=== PATIENT | female | born 1965 | race Caucasian/White ===

== ENCOUNTER 2019-09-25 13:41 | Emergency (ER) | payer MEDICARE, SELFPAY ==
[2019-09-25 13:47] VITALS: BP 118/84; PULSE 95; RESP 18; TEMP 36.7; O2SAT 97; BMI 28.0
--- NOTE | 2019-09-25 14:02 | XR_ITS ---
WS: [id number] Left ankle, 2 views, 09/25/2019 Clinical Data: fall, L knee ankle pain Comparison: None. Findings: No fractures or dislocations are seen. The ankle mortise is normal. The talus and calcaneus are unrem arkable. No soft tissue swelling over the medial or lateral malleolus is seen. There is a small plantar spur. XR/XR ankle LT 2V [id number] Impression: Negative left ankle.
--- NOTE | 2019-09-25 14:02 | XR_ITS ---
WS: [id number] Left knee, 3 views, 09/25/2019 Clinical Data: fall, left extremity pain Comparison: Left thigh and femur x-ray, 09/06/2007. Findings: There is a minimal fracture of the head of the left fibula.. The joint spaces are normal. The patella is intact. The soft tissues are unremarkable. There is a small anterior superior spur of the patella. There is a fibroxanthoma of the posterior dis julia femur unchanged. XR/XR knee LT 3V* [id number] Impression: 1. Small fracture of head of left fibula. 2. 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
--- NOTE | 2019-09-25 17:00 | ED_ITS ---
Entered by Loren Fang, acting as scribe for Sep 25, 2019 13:41 HPI - Extremity Problem General: Chief complaint: Extremity Injury, Lower Stated complaint: leg pain Time Seen by Provider: 09/25/19 17:01 Source: patient Mode of arrival: ambulatory Limitations: no limitations History of Present Illness: HPI Narrative: 53 yo Female presents to ED with complaint of left leg pain post fall. Pt states that she fell 3 times on [place]. Pt states that her legs just gave out and she fell. Pt states that she came in today because her pain isn't getting any better. Pt states she has some pain in her ankle and foot as well. MD Complaint: extremity pain Onset (ago): week(s) (1) Pain Consistency: constant Location: left and lower extremity Severity scale (1-10): 4 Quality: aching Relieving factors: nothing Associated symptoms: Reports no associated symptoms Review of Systems General: Reports: 10 or more systems reviewed and unremarkable except in HPI and below Musc: Reports: extremity pain and joint pain PFSH ED PFSH: Statuses (acute, chronic, etc) shown below reflect problem list status as previously entered and may not be historically accurate Social History Smoking and tobacco status: never smoked Physical Exam Const: COMMON NORMALS: no apparent distress, average body habitus, oriented x3, no limitations, healthy appearing, alert and well nourished HENMT: COMMON NORMALS: normocephalic HEAD & SCALP: normocephalic Eye: COMMON NORMALS: PERRL, EOMs intact bilaterally and conjunctivae normal CONJUNCTIVA: Yes conjunctivae normal PUPIL: Yes PERRL Neck/C-Spine: COMMON NORMALS: full ROM, no lymphadenopathy, supple and thyroid normal THYROID: thyroid normal Resp: COMMON NORMALS: normal respiratory effort, no retractions, no use of accessory muscles, clear to auscultation bilaterally and percussion normal AUSCULTATION: clear to auscultation bilaterally PERCUSSION: percussion normal Cardio: COMMON NORMALS: regular rate, regular rhythm, S1 normal heart sound, S2 normal heart sound, no gallops, no clicks, no murmurs, no rub and peripheral pulses 2+ throughout RATE: regular rate RHYTHM: regular rhythm HEART SOUNDS: S1 normal and S2 normal PERIPHERAL PULSES: pulses 2+ throughout GI: COMMON NORMALS: normal to inspection, nondistended, normoactive bowel sounds and soft to palpation PALPATION: Yes soft Extremity: COMMON NORMALS: normal to inspection and full ROM; negative for no joint enlargement (Tenderness over fibular head on left) Neuro: COMMON NORMALS: oriented x3 SENSORIUM/ORIENTATION: Yes alert Skin: COMMON NORMALS: no rashes or lesions noted, no wounds, skin turgor normal, no jaundice, no petechiae and no mottling GENERAL SKIN EXAM: no rashes or lesions noted and turgor normal Course Vital Signs: Vital signs: Vital Signs Temperature 98.0 F 09/25/19 13:47 Pulse Rate 95 09/25/19 13:47 Respiratory Rate 18 09/25/19 13:47 Blood Pressure 118/84 09/25/19 13:47 Pulse Oximetry 97 09/25/19 13:47 MDM - Extremity (Nontraumatic) MDM Narrative: Medical decision making narrative: Discussed differential diagnosis recommended plain films of tibia and fibula as well as ankle. The patient's x-rays came back with slightly displaced proximal fibular head fracture on the left. We discussed contemporary management and I recommended some immobilization and orthopedic follow-up. All questions were answered prior to discharge. Discharge Plan Discharge Patient Disposition: Home, Self-Care Clinical Impression: Closed fracture fibula, head Condition: Stable Prescriptions: No Action Pending RF: 0 Referrals: Yaya Myles MD [Family Provider] - Discharge Diet: Advance as tolerated Discharge Activity: Use walker/crutches as instructed Coding Level of Care Code ED Negative Turner Apprentice for Chg Fwd Exam Problem Focused The documentation recorded by the Leoncio schreiber Carmen, accurately reflects the service I personally performed and the decisions made by Ranjan green Charlie, DO Sep 25, 2019 13:41
--- NOTE | 2019-09-25 18:18 | PC.NURSE ---
physical therapy in room to fit pt for boot
[2019-09-25 18:23] VITALS: BP 113/80; PULSE 77; O2SAT 97
--- NOTE | 2019-09-25 18:36 | PC.PT ---
PT note; received evaluate and treat order for patient, and to fit walking boot, to left lower extremity, further instructed patient in partial weightbearing ambulation and transfers patient returned demonstration of same; instructed in use and care of walking boot, and patient had no further questions; but was unable to bill or note this otherwise, and [facility] system at this time
--- NOTE | 2019-09-26 10:02 | DCPLANNER ---
manager telemetry had message that patient is to follow up with ortho. manager telemetry called the ortho clinic, spoke with Pat, gave clinic patients information. manager telemetry was told that patients information would be printed and reviewed. Clinic will call nurse outreach case manager and patient with appointment information.
--- NOTE | 2019-09-30 10:46 | DCPLANNER ---
Waleska from ortho called geriatric case manager with appointment information. A follow up appointment has been scheduled for Sunday, October 06, 2019 at 1:[address] Jovel. Patient is aware of appointment.
--- NOTE | 2019-10-15 15:28 | DCPLANNER ---
Patient did not attend appointment scheduled with ortho.
== END 2019-09-25 18:23 | disposition home or self-care (01) ==
PROVIDERS: Emergency Provider Family Medicine; Family Provider Family Medicine
DX: S82.492A Other fracture of shaft of left fibula, initial encounter for closed fracture (principal); W19.XXXA Unspecified fall, initial encounter
CPT/HCPCS: 73562; 73600; 99281; E0114

== ENCOUNTER 2019-10-17 16:01 | Inpatient (IN) | payer MEDICARE, SELFPAY ==
[2019-10-17 16:04] VITALS: BP 150/94; PULSE 88; RESP 16; O2SAT 98; BMI 28.8
--- NOTE | 2019-10-17 16:07 | ED_ITS ---
Entered by Solange Akins, acting as scribe for Alex Pelaez MD HPI - Psych General: Chief Complaint: Psychiatric Symptoms Stated Complaint: SI Time Seen by Provider: 10/17/19 16:05 History of Present Illness: HPI Narrative: 53 yo female presents to ED with suicidal ideation. When asked what was going on, the patient stated life is going on . The patient said the police wants her to be here. When asked who called the police, she said she called the police because her step daughter did not want the patient to get her own stuff. The patient has a cut on her R wrist but states the cut was accidental due to broken glass. She said she told the police that if her cats were gone when she went back that she would just kill herself because they were the only things left that kept her going since her daughter disowned her and she never gets to see her grandchildren. complaint: suicidal ideation Onset (ago): hour(s) (1) Duration: constant History of same: No Exacerbating factors: other (family) Associated symptoms: Reports depression Review of Systems Const: Denies: fever or chills Eyes: Denies: change in vision ENMT: Denies: throat pain or mouth pain Card: Denies: chest pain Resp: Denies: shortness of breath GI: Denies: abdominal pain, nausea, vomiting or diarrhea : Denies: difficulty urinating Musc: Denies: back pain or joint pain Skin/Breast: Denies: rash Neuro: Reports: behavioral changes; Denies: headache Psych: Reports: depression Endo: Denies: excessive urination Neil/Lymph: Denies: easy bruising All/Imm: Denies: hives PFSH ED PFSH: Statuses (acute, chronic, etc) shown below reflect problem list status as previously entered and may not be historically accurate Social History (Updated 10/09/19 @ 11:11 by Bita Germain RN) Smoking and tobacco status: never smoked Second hand smoke exposure: Yes (lives with son in law) Alcohol intake: never Adopted: Yes (Grandparents adopted her.) Caregiver/support person: No Lives independently: No (Lives with step-daughter and son in law.) Household members: children Housing: Manufactured/Mobile home Marital status: / Number of children: 2 Number of grandchildren: 4 service: No Current occupational status: disabled Leisure activites: reading and other Leisure activities details: puzzles Sexually active: No Current gender identity: Female Financial difficulty paying for basics: Somewhat Hard Female Reproductive History: Para: 2 Spontaneous abortions: No Physical Exam Const: COMMON NORMALS: no apparent distress, oriented x3 and healthy appearing HENMT: COMMON NORMALS: normocephalic and external nose normal HEAD & SCALP: normocephalic NOSE: external nose normal Eye: COMMON NORMALS: PERRL PUPIL: Yes PERRL Neck/C-Spine: COMMON NORMALS: full ROM and no lymphadenopathy Chest: COMMONS NORMALS: inspection of chest normal Resp: COMMON NORMALS: normal respiratory effort, no use of accessory muscles and clear to auscultation bilaterally AUSCULTATION: clear to auscultation bilaterally Cardio: COMMON NORMALS: regular rate and regular rhythm RATE: regular rate RHYTHM: regular rhythm GI: COMMON NORMALS: normal to inspection, nondistended, normoactive bowel sounds, soft to palpation, non-tender and no masses PALPATION: Yes soft Back/Pelvis: THORACIC SPINE/UPPER BACK: Yes normal to inspection Extremity: COMMON NORMALS: normal to inspection, full ROM and normal capillary refill Neuro: COMMON NORMALS: oriented x3 Psych: COMMON NORMALS: mental status grossly normal and cooperative MOOD & AFFECT: Yes depressed mood Skin: COMMON NORMALS: no rashes or lesions noted GENERAL SKIN EXAM: no rashes or lesions noted MDM - Psych MDM Narrative: Medical decision making narrative: Patient presents here with suicidal ideations. Patient medically cleared I spoke to psychiatrist and will admit to the psychiatric unit. Lab Data: Labs: Lab Results 10/17/19 10/17/19 10/17/19 Range/Units 16:20 16:35 16:35 WBC 5.5 (4.0-10.0) 10^3/ uL RBC 4.29 (4.1-5.3) 10^6/u L Hgb 10.6 L (11.5-15.3) g/dL Hct 34.9 L (37.0-47.0) % MCV 81.4 (81-99) fL MCH 24.7 L (28.0-34.0) pg MCHC 30.4 (30.0-36.0) g/dL RDW 15.6 H (12.1-15.1) % Plt Count 276 (130-400) 10^3/c mm MPV 9.4 (7.4-10.4) fL Neut % (Auto) 51.9 % Lymph % (Auto) 41.1 % Hardeman % (Auto) 5.6 % Eos % (Auto) 0.7 % Baso % (Auto) 0.5 % Neut # (Auto) 2.9 (1.8-7.7) 10^3/u L Lymph # (Auto) 2.3 (0.8-4.8) 10^3/u L Hardeman # (Auto) 0.3 (0.2-0.9) 10^3/u L Eos # (Auto) 0.0 (0.0-0.8) 10^3/u L Baso # (Auto) 0.0 (0.0-0.1) 10^3/u L Nucleated RBC % (a uto) 0 % Nucleated RBCs # 0.0 /100WBC Sodium 142 (136-145) mmol/L Potassium 4.0 (3.5-5.1) mmol/L Chloride 102 (98-107) mmol/L Carbon Dioxide 29 (22-29) mmol/L Anion Gap 15.0 (5-19) BUN 8 (6-20) mg/dL Creatinine 0.7 (0.5-0.9) mg/dL GFR Calculation 86.9 L (90-130) mL/min Glucose 128 H (74-109) mg/dL Calcium 9.7 (8.5-10.5) mg/dL Total Bilirubin 0.2 (0.15-1.2) mg/dL AST 20 (0-32) U/L ALT 12 (0-33) U/L Alkaline Phosphata se 140 H (35-105) IU/L Total Protein 7.9 (6.6-8.7) g/dL Albumin 4.0 (3.5-5.2) g/dL Globulin 3.9 (1.3-4.6) g/dL Salicylates < 0.3 L (3-10) mg/dL Urine Opiates Scre en Negative (Negative) ng/mL Acetaminophen < 5.0 L (10-30) ug/mL Ur Barbiturates Sc reen Negative (Negative) ng/mL Ur Phencyclidine S crn Negative (Negative) ng/mL Ur Amphetamines Sc reen Negative (Negative) ng/mL U Benzodiazepines Scrn Negative (Negative) ng/mL Urine Cocaine Scre en Negative (Negative) ng/mL U Marijuana (THC) Screen Negative (Negative) ng/mL Ethyl Alcohol < 10 (0-10) mg/dL Discharge Plan Discharge Patient Disposition: Admitted As Inpatient Admit Provider: Brady Ly Clinical Impression: Suicidal ideation Condition: Stable Referrals: Slim Campoverde MD [Primary Care Provider] - Yaya Myles MD [Family Provider] - Coding Level of Care Code ED Roll Tube Setter for Chg Fwd The documentation recorded by the Tashi schreiber Valerie R, accurately reflects the service I personally performed and the decisions made by me, Alex Pelaez MD Oct 17, 2019 16:01
[2019-10-17 16:50] LABS: Basophils % 0.5 %; Eosinophils % 0.7 %; Hematocrit 34.9 % (37.0-47.0); Hemoglobin 10.6 g/dL (11.5-15.3); Lymphocytes # 2.3 10^3/uL (0.8-4.8); Lymphocytes % 41.1 %; Mean Corpuscular HGB Conc 30.4 g/dL (30.0-36.0); Mean Corpuscular Hemoglobin 24.7 pg (28.0-34.0); Mean Corpuscular Volume 81.4 fL (81-99); Mean Platelet Volume 9.4 fL (7.4-10.4); Monocytes # 0.3 10^3/uL (0.2-0.9); Monocytes % 5.6 %; Neutrophils # 2.9 10^3/uL (1.8-7.7); Neutrophils % 51.9 %; Nucleated Red Blood Cells % 0 %; Platelet Count 276 10^3/cmm (130-400); Red Blood Count 4.29 10^6/uL (4.1-5.3); Red Cell Distribution Width 15.6 % (12.1-15.1); White Blood Count 5.5 10^3/uL (4.0-10.0)
[2019-10-17 16:55] LABS: Alanine Aminotransferase 12 U/L (0-33); Alkaline Phosphatase 140 IU/L (35-105); Aspartate Amino Transferase 20 U/L (0-32); Blood Urea Nitrogen 8 mg/dL (6-20); Calcium 9.7 mg/dL (8.5-10.5); Carbon Dioxide 29 mmol/L (22-29); Chloride 102 mmol/L (98-107); Globulin 3.9 g/dL (1.3-4.6); Glomerular Filtration Rate 86.9 mL/min (90-130); Glucose 128 mg/dL (74-109); Sodium 142 mmol/L (136-145); Total Bilirubin 0.2 mg/dL (0.15-1.2); Total Protein 7.9 g/dL (6.6-8.7)
[2019-10-17 16:59] LABS: Acetaminophen < 5.0 ug/mL (10-30); Alcohol Level < 10 mg/dL (0-10); Salicylate < 0.3 mg/dL (3-10)
[2019-10-17 17:20] LABS: Amphetamines Screen Urine Negative (Negative); Barbiturates Screen Urine Negative (Negative); Benzodiazepines Screen Urine Negative (Negative); Cocaine Screen Urine Negative (Negative); Opiate Screen Urine Negative (Negative); PCP Screen Urine Negative (Negative); THC Screen Urine Negative (Negative)
[2019-10-17 17:55] VITALS: BP 145/80; PULSE 80; RESP 16; O2SAT 96
[2019-10-17 18:25] VITALS: BP 133/88; PULSE 73; RESP 18; TEMP 36.8; O2SAT 99
[2019-10-17 20:55] VITALS: BP 131/67; PULSE 59; RESP 20; TEMP 36.8; O2SAT 92
[2019-10-18] MEDS: acetaminophen 325 mg Tablet 650 MG PO (02:08)
--- NOTE | 2019-10-18 03:43 | PC.NURSE ---
Pt Behavior At approximately 2140 on 10/17/19 pt came to nurses station for night medications. She was informed that there was a process the physician would have to take tomorrow before she could get her Methadone. She began raising her voice and stated he needed to come in right away and fix it. She punched the glass and was yelling she had to have her methadone. She began to talk about stressors in her life and started to cry. Patient was reassured the physician would work with her on her treatment plan and visit with her tomorrow about her current medications. She became calm and returned to her room.
[2019-10-18 06:00] VITALS: BP 127/93; PULSE 76; RESP 20; TEMP 36.4; O2SAT 97
--- NOTE | 2019-10-18 08:53 | PM.NHP ---
Providers/Chief Complaint Admitting Physician: Brady Ly MD Primary Care Provider: Slim Campoverde MD Chief Complaint: SI HPI NPU History of Present Illness Maria Victoria New is a 53 year old female Chief complaint: I had a really bad year. History of present illness: Maria Victoria New is a 53 year old female He was admitted for the fourth time in the past 12 months. When asked why she is here, she details a great deal of trauma in her life. Her daughter moved into her home and was feeling drugs out of her home. She was threatened with being homeless. She has had difficulty with one of her 4 ex-husbands and the neighbors reported to the police. She never did explain why she had to be hospitalized psychiatrically. She claims that the [facility] was supposed to assist her on an outpatient basis. She said that the case monitor did not show up at scheduled appointment. As demonstrated flow, records indicate otherwise. She said she became suicidal and cut her wrist. She shows a healing laceration across her right volar surface of her wrist. No stitches were required. There is no indication of infection. There is an affidavit in her chart filed by a police commanding officer who describes a situation in which the patient was arguing with her daughter, was visibly distraught, had a cut on her wrist, and made a statement that indicated that the only reason she is alive is because of her cats. She stated if they are gone when she gets back, she would blow her head off and we would have to take her in her hearse. Patient stated that his physician that she was to meet with the [facility] counselors earlier this week but never was able to make the appointment. However records in her chart detail the following from just yesterday: Psychiatric Diagnosis 1. Diagnosis: Diagnosis: Major depressive disorder, recurrent severe without psychotic features Current Client Status Time In: 10:50 Time Out: 15:26 Service Encounter 2: Start Time: :55 Stop Time: 12:39 Description: Visited client to build repport and discuss [facility] services. Service Encounter 3: Start Time: 12:39 Stop Time: 12:45 Description: Brung client to [facility] Assessment Appointment Service Encounter 4: Start Time: 12:45 Stop Time: 14:05 Description: Assissted Client with [facility] Assessment ( Non Billiable ) Service Encounter 5: Start Time: 14:10 Stop Time: 15:10 Description: Assissted client with [facility] Assessment Service Encounter 6: Start Time: 15:10 Stop Time: 15:26 Description: CSS took client bcak home. Interventions Treatment Plan Intervention / Education Current Goal: ASSESSMENT Current Objective: ASSESSMENT Description of Intervention: CSS tarveled to clients home to have face to face session with client. CSS asked client about medication manegment and if she takes then as prescribed. Client stated, Yes, I take them when I am prescribed them. CSS asked client about her anxiety and depression. Client stated, I have days of depression and anxiety today is about a 5. CSS asked client about her coping skills critical intervention strategies. Client stated, I have bad days. CSS asked client about her keeping her apppointments. Client stated, I have bad cell phone vehicle technician so it is hard to get ahold of me. But I write the appointments down when I can make them. CSS asked client what she would like CSS and client discussed her new [facility] treatment plan goals and objectives to work on together. CSS and client set up a time to meet weekly as agreed upon. CSS assisted client with filling out the proper paper work for [facility] services. CSS then assisted client with assessments and paperwork for [facility] and [facility] at [facility]. CSS then drove client back home. Less than an hour later, at 16:05, thsi was entered by the ER physician: IKMBERLEY Narrative: 53 yo female presents to ED with suicidal ideation. When asked what was going on, the patient stated life is going on . The patient said the police wants her to be here. When asked who called the police, she said she called the police because her step daughter did not want the patient to get her own stuff. The patient has a cut on her R wrist but states the cut was accidental due to broken glass. She said she told the police that if her cats were gone when she went back that she would just kill herself because they were the only things left that kept her going since her daughter disowned her and she never gets to see her grandchildren. Mental health history:She was hospitalized 4 times in 2019: October 01 for 3 days, February 14 6 days, March 18 for 4 days, and April 21 for 8 days. It is noteworthy that in each of those hospitalizations, there is disagreement over medications that she felt she should be receiving. Her last discharge summary read as follows: The patient was admitted voluntary. She was placed on close observations for suicidal thoughts. Maria Victoria did voice suicidal thoughts during the hospitalization. However prior to discharge Maria Victoria was using suicidal thoughts as a way to stay in the hospital. She did not have any outbursts on the unit. The patient did not require seclusion and restraints. Family psychiatric history is positive for addiction and her daughter. No other diagnoses listed. Social history: She grew up in [facility]. She was at 14 years of age. Her first marriage Produced 2 girls. She was at 20. One of his daughters is the one that is causing her difficulty and allegedly selling drugs out of her apartment. 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 She is now disabled due to her problems with peripheral neuropathy. She enjoys spending time with her pets and watching Star Trek. She has no hobbies or old directed self esteem supporting activities. There is nothing that she is forward to. She does not seem too concerned about either. Legal history:She has 2 arrests over 10 years ago for possession of marijuana. Past medical history:Please see nursing notes in the emergency room admission packet. She has been diagnosed with peripheral neuropathy which produces her disability payments. She also has had a hip replacement and recently had a broken tibia. Mental Status Exam: The patient presents ambulating with a blanket over her shoulders. She sits in a forward posture and is interpersonally engaged in this interview. She is not a reliable informant as evidenced by contradiction of her report that she had no contact with the [facility] this week. She is in no apparent emotional or physical distress. Appearance: hygiene is fair; no gross neurological deficits., gait is unremarkable; AIMS=0 Speech: Speech is of normal rate and rhythm and easily understood. Thought processes: Thought processes are abstract. Judgment is adequate for safety. Associations: intact Psychotic processes: There is no indication of guarding or paranoia. There is no attention to the internal stimuli. Auditory and visual hallucinations are denied. Judgment: Insight is fair. Problem solving skills are adequate for safety. Orientation: The patient is oriented to person, place time and situation. Memory: no deficits noted in immediate, intermediate, or remote spheres. Attention: The patient is alert and interpersonally engaged. Language: Verbalizations are coherent. Fund of knowledge: Fund of knowledge is adequate. Affect/Mood: Affect is consistent with a Euthymic mood. She denied suicidal ideation Affective range appropriate. Psychosis: perception unimpaired except through cognitive distortion; reality testing intact. Diagnoses: Major depression?recurrent, in remission Adjustment disorder with disturbance of mood and conduct Rule out malingering Assessment: Is really not clear why this person needs to be in the hospital. She used the word suicide To a police commanding officer and in the emergency room. She is in no apparent distress at this time. It is noteworthy that she has prescriptions that are forward dated for Percocet and methadone indicating that it is likely that there are other prescriptions that have recently been filled for both. It is a coincidence that she says she has a daughter living with her selling drugs out of her house. It is noteworthy that the patient is negative for opiates on her drug screen. Methadone would not show up on the drug screen but the Percocet would. Treatment plan: Due to the psychiatric conditions and treatment listed in the Assessment and Plan - the patient requires continued hospitalization. Will provide a safe and therapeutic environment for patient.. Will continue inpatient treatment to allow for medication adjustment and monitoring. Will continue q15 min safety checks. Will continue current medications and monitor for medication side effects. Monitor patient's mood, sleep, appetite, and behavior closely. Encourage patient to participate in individual and group therapeutic sessions on the guzmán. Estimated length of stay 5 days The expected benefits and potential side effects of patient's psychiatric medications were discussed with the patient. The patient understands and consents to treatment.CRITERIA FOR DISCHARGE: stable on medications and no longer an im Meds NPU Home Medications Medication Instructions Recorded Confirmed Type clonazepam 1 mg tablet 1 mg PO BID PRN 10/08/19 10/17/19 History levothyroxine 50 mcg capsule 50 mcg PO DAILY 10/08/19 10/17/19 History methadone 10 mg tablet 10 mg PO Q6H PRN 10/08/19 10/17/19 History oxybutynin chloride 5 mg tablet 5 mg PO BID 10/08/19 10/17/19 History oxycodone-acetaminophen 7.5 mg-325 1 tab PO Q6H PRN 10/08/19 10/17/19 History mg tablet amitriptyline 200 mg PO DAILY 10/17/19 10/17/19 History naloxone [Narcan] 4 mg INTRANASAL Q3M PRN 10/17/19 10/17/19 History omeprazole 20 mg PO BID 10/17/19 10/17/19 History Allergies Allergy/AdvReac Type Severity Reaction Status Date / Time amoxicillin Allergy rash Verified 10/09/19 11:18 egg Allergy Vomiting Verified 10/09/19 11:20 morphine Allergy rash Verified 10/09/19 11:20 nalbuphine [From Nubain] Allergy ADR-Agitate Verified 09/25/19 13:58 d Penicillins Allergy ALGY-Rash Verified 09/25/19 13:58 promethazine Allergy rash Verified 10/09/19 11:20 PFSH NPU PFSH: Statuses (acute, chronic, etc) shown below reflect problem list status as previously entered and may not be historically accurate Social History (Updated 10/09/19 @ 11:11 by Bita Germain RN) Smoking and tobacco status: never smoked Second hand smoke exposure: Yes (lives with son in law) Alcohol intake: never Adopted: Yes (Grandparents adopted her.) Caregiver/support person: No Lives independently: No (Lives with step-daughter and son in law.) Household members: children Housing: Manufactured/Mobile home Marital status: / Number of children: 2 Number of grandchildren: 4 service: No Current occupational status: disabled Leisure activites: reading and other Leisure activities details: puzzles Sexually active: No Current gender identity: Female Financial difficulty paying for basics: Somewhat Hard Female Reporductive History: Para: 2 Spontaneous abortions: No Vitals/I&O/Wt Last Vital Signs Temp 97.5 F L 10/18/19 06:00 Pulse 76 10/18/19 06:00 Resp 20 H 10/18/19 06:00 BP 127/93 10/18/19 06:00 Pulse Ox 97 10/18/19 06:00 Weight last 48 hrs Weight 88.451 kg Data NPU : 10/17/19 16:35 10/17/19 16:35 Involuntary Hold Information 96 Hour Hold: 96 Hour Involuntary Admission: No Attestations NPU Medical Necessity Statement*: Patient will remain in the hospital another 5 nights for the completion of her court-ordered involuntary incarceration. Coding Level of Care Code Acute Vice President Industrial Relations for Barbra Keith
[2019-10-18] MEDS: methadone 10 mg Tablet PO ×3 (10:00→20:45)
[2019-10-18] MEDS: diphenhydrAMINE 25 mg Capsule PO (10:39)
[2019-10-18 14:00] VITALS: O2SAT 79
[2019-10-18] MEDS: hydrocortisone 1% cream 28 gm 1 APPLIC TOPICAL (18:26)
[2019-10-18 21:40] VITALS: BP 124/87; PULSE 93; RESP 18; TEMP 36.7; O2SAT 94
[2019-10-19 06:00] VITALS: BP 116/72; PULSE 61; RESP 16; TEMP 36.7; O2SAT 97
[2019-10-19] MEDS: methadone 10 mg Tablet PO ×3 (08:48→21:12)
--- NOTE | 2019-10-19 16:54 | PM.NPN ---
Subjective NPU Subjective: Interval history: Maria Victoria New is a 53 year old female admitted for the fourth time in 12 months. She details a great deal of trauma in her life. Her daughter moved in with her and was dealing drugs out of her home. She was threatened with being homeless. She has had difficulty with one of her 4 ex-husbands and the neighbors reported to the police. She never did explain why she had to be hospitalized psychiatrically. She claims that the [facility] was supposed to assist her on an outpatient basis. She said that the keycase assembler did not show up at scheduled appointment. The clinical records indicate that several appointments were made the patient availed herself of none of them. She said she became suicidal and cut her wrist. She shows a healing laceration across her right volar surface of her wrist. No stitches were required. There is no indication of infection. Mental Status Exam MSE Comments: Today the patient is on a much more even keel. She is not dramatic or hyperbolic in her presentation. She recounts multiple family issues which, she believes, may render her homeless. The patient presents at her stated age. She is in good body habitus, well-groomed and clean. Mood is anxious and affect is tense, commensurate with her mood. Thought processes are integrated and free of any racing, blocking or looseness of association. Speech is of normal rate and volume, without dysarthria, aprosody or pressure. Cognitive functions are intact. She seems quite intelligent and there does not appear to be any short-term memory deficit she has reasonable judgment and insight. She denies suicidal or homicidal ideation, plan or intent. Vitals/I&O/Wt Last Vital Signs Temp 98.1 F 10/19/19 06:00 Pulse 61 10/19/19 06:00 Resp 16 10/19/19 06:00 BP 116/72 10/19/19 06:00 Pulse Ox 97 10/19/19 06:00 Weight last 48 hrs Weight 187 lb Physical Exam Narrative: EXAM NARRATIVE: The patient appeared about 60 pounds overweight but normally developed. Vital signs as documented. Head exam is unremarkable. No scleral icterus or corneal arcus noted. Neck is without jugular venous distension, thyromegaly, or carotid bruits. Lungs are clear to auscultation and percussion. Heart normal sinus rhythm, no murmurs. Abdomen bland. Extremities no limitation of motion, no lower extremity edema. Neurological cranial nerves II to XII intact. No cerebellar, sensory or motor deficit noted. Mental status as above. Data NPU : 10/17/19 16:35 10/17/19 16:35 A&P Assessment and plan (1) Adjustment disorder with depressed mood: Status: Acute Code(s): F43.21 - Adjustment disorder with depressed mood (2) Suicidal ideation: The patient felt overwhelmed. She is not now. And her suicidal ideation is waning Status: Acute Code(s): R45.851 - Suicidal ideations Involuntary Hold Information 96 Hour Hold: 96 Hour Involuntary Admission: No Attestations NPU Medical Necessity Statement*: This patient was suicidal and remains depressed. This was an appropriate admission. I anticipate 4-5 midnights additional stay. Time Spent in Patient Care: Greater than 35 minutes (>than 50% of time spent in counselling and/or direct pt care on unit). 60 minutes. Coding Level of Care Code Acute Silvering Department Supervisor for Barbra Keith Diagnoses Adjustment disorder with depressed mood F43.21 Suicidal ideation R45.851
[2019-10-19 20:39] VITALS: BP 123/82; PULSE 76; RESP 17; TEMP 36.8; O2SAT 97
[2019-10-19] MEDS: trazodone 50 mg Tablet PO (21:14)
[2019-10-20 06:58] VITALS: BP 115/73; PULSE 73; RESP 16; TEMP 36.8; O2SAT 97
[2019-10-20 09:06] VITALS: RESP 19
[2019-10-20] MEDS: acetaminophen 325 mg Tablet 650 MG PO (09:06)
[2019-10-20] MEDS: methadone 10 mg Tablet PO ×3 (09:06→20:57)
[2019-10-20 13:27] VITALS: BP 117/81; PULSE 75; RESP 18; TEMP 36.6; O2SAT 97
[2019-10-20 14:47] VITALS: RESP 18
--- NOTE | 2019-10-20 15:07 | P.PN_ITS ---
Subjective NPU Subjective: Interval history: The patient is a lot calmer today and her mood is brighter. She does have foul-smelling urine and believes she has a urinary tract infection. She also has pain and burning upon urination. She says she has been on Bactrim DS before, to good effect Medications: Reviewed: Yes Mental Status Exam MSE Comments: The patient is alert and oriented to person, place, time, and situation. Hygiene is good. Sensorium is clear. The patient maintains appropriate eye contact, is cooperative and relates well to me. Behavior shows no psychomotor agitation. Mood is calm and euthymic. Affect is tense, appropriate to his current mood. Thought processes are organized and free of racing, blocking or looseness of association. Speech is of normal rate and volume, without dysarthria, aprosody or pressure. There is no inordinate latency of response. The patient denies auditory or visual hallucinations or delusions. Thought processes are integrated and free of any racing, blocking or looseness of association. The patient denies suicidal or homicidal ideation, plan or intent. Memory is intact for recent and remote events. The patient is cooperative and relates well to me. Fund of knowledge is adequate given vocabulary. Insight and judgment were deemed to be good given the recognition of problems and desire for treatment. Vitals/I&O/Wt Last Vital Signs Temp 97.9 F 10/20/19 13:27 Pulse 75 10/20/19 13:27 Resp 18 10/20/19 14:47 BP 117/81 10/20/19 13:27 Pulse Ox 97 10/20/19 13:27 Weight last 48 hrs Weight 187 lb Physical Exam Narrative: EXAM NARRATIVE: The patient appeared to be overweight but normally developed. Vital signs as documented. Head exam is unremarkable. No scleral icterus or corneal arcus noted. Neck is without jugular venous distension, thyromegaly, or carotid bruits. Lungs are clear to auscultation and percussion. Heart normal sinus rhythm, no murmurs. Abdomen bland. Extremities no limitation of motion, no lower extremity edema. Neurological cranial nerves II to XII intact. No cerebellar, sensory or motor deficit noted. Mental status as above. Data NPU : 10/17/19 16:35 10/17/19 16:35 A&P Assessment and plan (1) Adjustment disorder with depressed mood: Status: Acute Code(s): F43.21 - Adjustment disorder with depressed mood (2) Suicidal ideation: Status: Acute Code(s): R45.851 - Suicidal ideations Involuntary Hold Information 96 Hour Hold: 96 Hour Involuntary Admission: No Attestations NPU Medical Necessity Statement*: The patient is responding rapidly to milieu and pharmacotherapy. I anticipate 2-3 midnights additional hospitalization. Coding Level of Care Code Acute String Studies Director for Raj Sagar Diagnoses Adjustment disorder with depressed mood F43.21 Suicidal ideation R45.851
[2019-10-20] MEDS: sulfamethoxazole-trimeth DS 160-800 mg Tablet 1 TAB PO (17:03)
[2019-10-20 19:42] VITALS: BP 130/82; PULSE 80; RESP 18; TEMP 37; O2SAT 99
[2019-10-20] MEDS: trazodone 50 mg Tablet PO (22:45)
[2019-10-21 06:00] VITALS: BP 118/76; PULSE 75; RESP 16; TEMP 36.7; O2SAT 97
[2019-10-21] MEDS: methadone 10 mg Tablet PO ×3 (08:19→21:00)
[2019-10-21] MEDS: sulfamethoxazole-trimeth DS 160-800 mg Tablet 1 TAB PO ×2 (08:19→17:32)
--- NOTE | 2019-10-21 08:52 | P.PN_ITS ---
Subjective NPU Subjective: Interval history: The patient complains of significant anxiety. The loss of her home has disrupted her life significantly and she does not know where to return. Were never able to find a place for her. Medications: Reviewed: Yes Mental Status Exam MSE Comments: The patient is alert and oriented to person, place, time, and situation. Hygiene is better organized. Sensorium is clearer and she understands what we tell her and what's going on around her. The patient maintains appropriate eye contact, is cooperative and relates well to me. Behavior shows significant psychomotor agitation. Mood is nervous and tense. Affect is appropriate to her current mood. Thought processes are slightly scattered but they are free of racing, blocking or looseness of association. She frets constantly about having no place to go. We are now searching for a bed for her in a homeless group home speech is of normal rate and volume, without dysarthria, aprosody or pressure. There is no inordinate latency of response. The patient denies auditory or visual hallucinations or delusions. The patient denies suicidal or homicidal ideation, plan or intent. Memory is intact for recent and remote events. Fund of knowledge is adequate given vocabulary. Insight and judgment were deemed to be good given the recognition of problems and desire for treatment. Vitals/I&O/Wt Last Vital Signs Temp 98.1 F 10/21/19 06:00 Pulse 75 10/21/19 06:00 Resp 16 10/21/19 06:00 BP 118/76 10/21/19 06:00 Pulse Ox 97 10/21/19 06:00 Physical Exam Narrative: EXAM NARRATIVE: The patient appeared overweight but adequately nourished and normally developed. Vital signs as documented. Head exam is unremarkable. No scleral icterus or corneal arcus noted. Neck is without jugular venous distension, thyromegaly, or carotid bruits. Lungs are clear to auscultation and percussion. Heart normal sinus rhythm, no murmurs. Abdomen bland. Extremities no limitation of motion, no lower extremity edema. Neurological cranial nerves II to XII intact. No cerebellar, sensory or motor deficit noted. Mental status as above. Data NPU : 10/17/19 16:35 10/17/19 16:35 A&P Assessment and plan (1) Adjustment disorder with depressed mood: Status: Acute Code(s): F43.21 - Adjustment disorder with depressed mood (2) Suicidal ideation: Status: Acute Code(s): R45.851 - Suicidal ideations Involuntary Hold Information 96 Hour Hold: 96 Hour Involuntary Admission: No Attestations NPU 2 Medical Necessity Statement*: This patient would deteriorate out rapidly on the streets. We have to find a place for her to live. Time Spent in Patient Care: Greater than 35 minutes (>than 50% of time spent in counselling and/or direct pt care on unit) . The patient is an unstable psychosocial situation. We have to effectuated stable safe placement. Coding Level of Care Code Acute Corporate Director Of Pharmacy for [facility] Fwd Diagnoses Adjustment disorder with depressed mood F43.21 Suicidal ideation R45.851
[2019-10-21] MEDS: BuSPIRONE 5 mg Tablet PO ×3 (09:21→21:00)
[2019-10-21] MEDS: diphenhydrAMINE 25 mg Capsule PO (12:30)
[2019-10-21 14:00] VITALS: BP 114/76; PULSE 80; RESP 18; TEMP 36.9; O2SAT 95
[2019-10-21 14:52] VITALS: RESP 16; O2SAT 97
[2019-10-21 22:00] VITALS: BP 142/87; PULSE 71; RESP 18; TEMP 36.8; O2SAT 97
[2019-10-22 06:00] VITALS: BP 109/72; PULSE 67; RESP 17; TEMP 36.9; O2SAT 96
[2019-10-22] MEDS: methadone 10 mg Tablet PO ×3 (09:39→20:30)
[2019-10-22] MEDS: sulfamethoxazole-trimeth DS 160-800 mg Tablet 1 TAB PO ×2 (09:40→17:18)
[2019-10-22] MEDS: BuSPIRONE 5 mg Tablet PO ×3 (09:40→20:30)
--- NOTE | 2019-10-22 13:36 | P.PN_ITS ---
Subjective NPU Subjective: Interval history: The patient grieves. She is lonely and her 's long gone. Her children have abandoned her, they having gotten involved in drugs. Our service planner has given her a list of resources for residential placement. She intends to start calling around and get her life back on track. Mental Status Exam MSE Comments: The patient is alert and oriented to person, place, time, and situation. Hygiene is well groomed. Sensorium is clear but she frets over whether she is developing dementia. Not even close. The patient maintains appropriate eye contact, is cooperative and relates well to me. Behavior shows no psychomotor agitation. Mood is sad and lonely. Affect is flat to dysphoric. Thought processes are free of racing, blocking or looseness of association. Speech is of normal rate and volume, without dysarthria, aprosody or pressure. There is no inordinate latency of response. The patient denies auditory or visual hallucinations or delusions. The patient denies suicidal or homicidal ideation, plan or intent. She exhibits no assaultive behavior. Memory is intact for recent and remote events. Fund of knowledge is adequate given voc abulary. Insight and judgment were deemed to be good given the recognition of problems and desire for treatment. Vitals/I&O/Wt Last Vital Signs Temp 98.4 F 10/22/19 06:00 Pulse 67 10/22/19 06:00 Resp 17 10/22/19 06:00 BP 109/72 10/22/19 06:00 Pulse Ox 96 10/22/19 06:00 Physical Exam Narrative: EXAM NARRATIVE: The patient appeared obese but normally developed. Vital signs as documented. Head exam is unremarkable. No scleral icterus or corneal arcus noted. Neck is without jugular venous distension, thyromegaly, or carotid bruits. Lungs are clear to auscultation and percussion. Heart normal sinus rhythm, no murmurs. Abdomen bland. Extremities no limitation of motion, no lower extremity edema. Neurological cranial nerves II to XII intact. No cerebellar, sensory or motor deficit noted. Mental status as above. Data NPU : 10/17/19 16:35 10/17/19 16:35 Involuntary Hold Information 96 Hour Hold: 96 Hour Involuntary Admission: No Attestations NPU Medical Necessity Statement*: Placement is a major issue here. She is despondent and would be at risk without placement. Time Spent in Patient Care: Greater than 35 minutes (>than 50% of time spent in counselling and/or direct pt care on unit) . Coding Level of Care Code Acute Director Safety Council for Barbra Keith
[2019-10-22 14:00] VITALS: BP 127/84; PULSE 81; RESP 20; TEMP 36.8
[2019-10-22 21:29] VITALS: BP 123/78; PULSE 81; RESP 18; TEMP 37.1; O2SAT 97
[2019-10-23 06:00] VITALS: BP 113/73; PULSE 64; RESP 17; TEMP 36.7; O2SAT 96
[2019-10-23] MEDS: BuSPIRONE 5 mg Tablet PO ×3 (08:37→20:27)
[2019-10-23] MEDS: sulfamethoxazole-trimeth DS 160-800 mg Tablet 1 TAB PO ×2 (08:37→17:24)
[2019-10-23] MEDS: methadone 10 mg Tablet PO ×3 (08:37→20:26)
[2019-10-23 13:32] VITALS: BP 122/76; PULSE 84; RESP 18; TEMP 36.4; O2SAT 99
--- NOTE | 2019-10-23 16:32 | PM.NPN ---
Subjective NPU Subjective: Interval history: Maria Victoria presents today reporting that she still struggling with her mood and emotions. In conversation though it appears that a significant challenge is where she go from here. She is working with the social work team to figure out if she can move into a motel but does 30 day payments that are reasonable. Or somewhat reasonable. The plan at this point is she was to meet with her telephonic nurse case manager on Sunday and possibly arrange things with the agency/motel. The reason for waiting until Sunday is mostly predicated on her getting her check on that day. We discussed the fact that we would meet a treatment team the morning and determine if this is a reasonable approach given all things considered. Given that I'm just coming on the case today. Mental Status Exam MSE Comments: This is a overweight white female with adequate dress grooming and I contact. Poor dentition. No abnormal movements except for mild psychomotor retardation. Cooperative with exam in no acute distress. Speech was decreased rate and volume. Mood described as a little down. Affect congruent. Thought process organized. Thought content: Patient denied any suicidal or homicidal ideations, there were no delusions reported noted, she denied any auditory or visual hallucinations. Attention and concentration were intact and memory appear reliable and none were formally tested. She is alert and oriented ?3. Insight and judgment are fair. Vitals/I&O/Wt Last Vital Signs Temp 97.5 F L 10/23/19 13:32 Pulse 84 10/23/19 13:32 Resp 18 10/23/19 13:32 BP 122/76 10/23/19 13:32 Pulse Ox 99 10/23/19 13:32 Data NPU : 10/17/19 16:35 10/17/19 16:35 A&P Additional A&P Information This is a 53-year-old white female with a recent history of hospitalization secondary to significant psychosocial conflict in her home specifically with her daughter presents after continued issues reporting a plan to ultimately completely get out of the situation but reporting limited options prior to October 27. 1. Continue current medication. 2. Encourage individual, group and milieu therapy. 3. Continue every 15 minute checks for safety. 4. Will work with social work and outpatient telephonic nurse case manager to determine what options exist to help discharge her to an appropriate situation. Involuntary Hold Information 96 Hour Hold: 96 Hour Involuntary Admission: No Attestations NPU Medical Necessity Statement*: Inpatient hospitalization is medically necessary and the clinically appropriate intervention at this time. We will monitor her medications and titrate to effect. We will work with treatment team to determine what discharge options exist. Likely length of stay 1-3 days. Coding Level of Care Code Acute Card Lacer for Barbra Keith
[2019-10-23 20:27] VITALS: BP 129/88; PULSE 100; RESP 19; TEMP 37.1; O2SAT 94
[2019-10-24 06:00] VITALS: BP 110/77; PULSE 89; RESP 19; TEMP 36.6; O2SAT 99
[2019-10-24] MEDS: methadone 10 mg Tablet PO ×2 (08:52→14:24)
[2019-10-24] MEDS: sulfamethoxazole-trimeth DS 160-800 mg Tablet 1 TAB PO ×2 (08:52→17:31)
[2019-10-24] MEDS: BuSPIRONE 5 mg Tablet PO ×2 (08:52→14:24)
--- NOTE | 2019-10-24 12:57 | PC.SOCIAL ---
Important Medicare Message Reviewed Important Medicare Message with patient, verbalized understanding and signed. Original to patient and copy in chart.
--- NOTE | 2019-10-24 13:25 | PM.NDC ---
Diagnoses at Discharge Discharge Diagnosis (1) Adjustment disorder with depressed mood: Status: Acute Problem details: Patient is facing precipitous environmental stress and is aggrieved. Her daughter has betrayed her and her mother before [place]. Pharmacotherapy, millieu and discharge planning are definitely in order. Reason for Visit Reason for Visit: Reason For Visit: SI Brief History: HPI NPU History of Present Illness Maria Victoria New is a 53 year old female Chief complaint: I had a really bad year. History of present illness: Maria Victoria New is a 53 year old female He was admitted for the fourth time in the past 12 months. When asked why she is here, she details a great deal of trauma in her life. Her daughter moved into her home and was feeling drugs out of her home. She was threatened with being homeless. She has had difficulty with one of her 4 ex-husbands and the neighbors reported to the police. She never did explain why she had to be hospitalized psychiatrically. She claims that the [facility] was supposed to assist her on an outpatient basis. She said that the nurse outreach case manager did not show up at scheduled appointment. As demonstrated flow, records indicate otherwise. She said she became suicidal and cut her wrist. She shows a healing laceration across her right volar surface of her wrist. No stitches were required. There is no indication of infection. There is an affidavit in her chart filed by a police stenographer who describes a situation in which the patient was arguing with her daughter, was visibly distraught, had a cut on her wrist, and made a statement that indicated that the only reason she is alive is because of her cats. She stated if they are gone when she gets back, she would blow her head off and we would have to take her in her hearse. Patient stated that his physician that she was to meet with the [facility] counselors earlier this week but never was able to make the appointment. However records in her chart detail the following from just yesterday: Psychiatric Diagnosis 1. Diagnosis: Diagnosis: Major depressive disorder, recurrent severe without psychotic features Current Client Status Time In: 10:50 Time Out: 15:26 Service Encounter 2: Start Time: 10:55 Stop Time: 12:39 Description: Visited client to build repport and discuss [facility] services. Service Encounter 3: Start Time: 12:39 Stop Time: 12:45 Description: Brung client to [facility] Assessment Appointment Service Encounter 4: Start Time: 12:45 Stop Time: 14:05 Description: Assissted Client with [facility] Assessment ( Non Billiable ) Service Encounter 5: Start Time: 14:10 Stop Time: 15:10 Description: Assissted client with [facility] Assessment Service Encounter 6: Start Time: 15:10 Stop Time: 15:26 Description: CSS took client bcak home. Interventions Treatment Plan Intervention / Education Current Goal: ASSESSMENT Current Objective: ASSESSMENT Description of Intervention: CSS tarveled to clients home to have face to face session with client. CSS asked client about medication manegment and if she takes then as prescribed. Client stated, Yes, I take them when I am prescribed them. CSS asked client about her anxiety and depression. Client stated, I have days of depression and anxiety today is about a 5. CSS asked client about her coping skills critical intervention strategies. Client stated, I have bad days. CSS asked client about her keeping her apppointments. Client stated, I have bad cell phone dental office receptionist so it is hard to get ahold of me. But I write the appointments down when I can make them. CSS asked client what she would like CSS and client discussed her new [facility] treatment plan goals and objectives to work on together. CSS and client set up a time to meet weekly as agreed upon. CSS assisted client with filling out the proper paper work for [facility] services. CSS then assisted client with assessments and paperwork for [facility] and [facility] at [facility]. CSS then drove client back home. Less than an hour later, at 16:05, thsi was entered by the ER physician: KIMBERLEY Narrative: 53 yo female presents to ED with suicidal ideation. When asked what was going on, the patient stated life is going on . The patient said the police wants her to be here. When asked who called the police, she said she called the police because her step daughter did not want the patient to get her own stuff. The patient has a cut on her R wrist but states the cut was accidental due to broken glass. She said she told the police that if her cats were gone when she went back that she would just kill herself because they were the only things left that kept her going since her daughter disowned her and she never gets to see her grandchildren. Mental health history:She was hospitalized 4 times in 2019: October 01 for 3 days, February 14 6 days, March 18 for 4 days, and April 21 for 8 days. It is noteworthy that in each of those hospitalizations, there is disagreement over medications that she felt she should be receiving. Her last discharge summary read as follows: The patient was admitted voluntary. She was placed on close observations for suicidal thoughts. Maria Victoria did voice suicidal thoughts during the hospitalization. However prior to discharge Maria Victoria was using suicidal thoughts as a way to stay in the hospital. She did not have any outbursts on the unit. The patient did not require seclusion and restraints. Family psychiatric history is positive for addiction and her daughter. No other diagnoses listed. Social history: She grew up in [facility]. She was at 14 years of age. Her first marriage Produced 2 girls. She was at 20. One of his daughters is the one that is causing her difficulty and allegedly selling drugs out of her apartment. 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 She is now disabled due to her problems with peripheral neuropathy. She enjoys spending time with her pets and watching [employer]. She has no hobbies or old directed self esteem supporting activities. There is nothing that she is forward to. She does not seem too concerned about either. Legal history:She has 2 arrests over 10 years ago for possession of marijuana. Past medical history:Please see nursing notes in the emergency room admission packet. She has been diagnosed with peripheral neuropathy which produces her disability payments. She also has had a hip replacement and recently had a broken tibia. Mental Status Exam: The patient presents ambulating with a blanket over her shoulders. She sits in a forward posture and is interpersonally engaged in this interview. She is not a reliable informant as evidenced by contradiction of her report that she [facility] no [facility]. She is in no apparent emotional or physical distress. Appearance: hygiene is fair; no gross neurological deficits., gait is unremarkable; AIMS=0 Speech: Speech is of normal rate and rhythm and easily understood. Thought processes: Thought processes are abstract. Judgment is adequate for safety. Associations: intact Psychotic processes: There is no indication of guarding or paranoia. There is no attention to the internal stimuli. Auditory and visual hallucinations are denied. Judgment: Insight is fair. Problem solving skills are adequate for safety. Orientation: The patient is oriented to person, place time and situation. Memory: no deficits noted in immediate, intermediate, or remote spheres. Attention: The patient is alert and interpersonally engaged. Language: Verbalizations are coherent. Fund of knowledge: Fund of knowledge is adequate. Affect/Mood: Affect is consistent with a Euthymic mood. She denied suicidal ideation Affective range appropriate. Psychosis: perception unimpaired except through cognitive distortion; reality testing intact. Diagnoses: Major depression?recurrent, in remission Adjustment disorder with disturbance of mood and conduct Rule out malingering Assessment: Is really not clear why this person needs to be in the hospital. She used the word suicide To a police stenographer and in the emergency room. She is in no apparent distress at this time. It is noteworthy that she has prescriptions that are forward dated for Percocet and methadone indicating that it is likely that there are other prescriptions that have recently been filled for both. It is a coincidence that she says she has a daughter living with her selling drugs out of her house. It is noteworthy that the patient is negative for opiates on her drug screen. Methadone would not show up on the drug screen but the Percocet would. Treatment plan: Due to the psychiatric conditions and treatment listed in the Assessment and Plan - the patient requires continued hospitalization. Will provide a safe and therapeutic environment for patient.. Will continue inpatient treatment to allow for medication adjustment and monitoring. Will continue q15 min safety checks. Will continue current medications and monitor for medication side effects. Monitor patient's mood, sleep, appetite, and behavior closely. Encourage patient to participate in individual and group therapeutic sessions on the guzmán. Estimated length of stay 5 days The expected benefits and potential side effects of patient's psychiatric medications were discussed with the patient. The patient understands and consents to treatment.CRITERIA FOR DISCHARGE: stable on medications and no longer an im Hospital Course Hospital Course Maria Victoria presented to the emergency room endorsing suicidal thoughts. She had a laceration on her wrist which she reported represented a suicide attempt and she was admitted to the neuro psych unit with affidavits on the police with concerns for safety. She slowly acclimated to the individual, group and milieu therapies provided on the unit. Her medications were maintained though her Klonopin was not. She had some significant psychosocial stressors most notably her living arrangements and the treatment team worked with her nurse outreach case manager to create a reasonable vehicle for her to get to some answers though was not completely resolved at the time of discharge. Routine laboratory studies were obtained which were within normal limits except for a few outliers. Additionally a general medical evaluation was performed which was within normal limits in general and revealed no new acute processes. Discharge Summary At the time of discharge all lethality was denied. Mood and anxiety were reported as improved and there was no psychosis reported or noted. Patient reported a plan to follow-up with outpatient services per referrals. Maximum benefit from inpatient hospitalization was achieved and the patient was discharged. Involuntary Hold Information 96 Hour Hold: 96 Hour Involuntary Admission: No Mental Status Exam MSE Comments: This is a overweight white female with adequate dress grooming and I contact. Poor dentition. No abnormal movements except for mild psychomotor retardation. Cooperative with exam in no acute distress. Speech was more normal rate and volume. Mood described as a little better. Affect congruent. Thought process organized. Thought content: Patient denied any suicidal or homicidal ideations, there were no delusions reported noted, she denied any auditory or visual hallucinations. Attention and concentration were intact and memory appear reliable and none were formally tested. She is alert and oriented ?3. Insight and judgment are fair. Discharge Data Vitals: Last Vital Signs Temp 97.9 F 10/24/19 06:00 Pulse 89 10/24/19 06:00 Resp 19 H 10/24/19 06:00 BP 110/77 10/24/19 06:00 Pulse Ox 99 10/24/19 06:00 Discharge Plan Discharge Patient Disposition: Home, Self-Care Condition: Stable Prescriptions: Continued oxybutynin chloride 5 mg tablet 5 mg PO BID RF: 0 methadone 10 mg tablet 10 mg PO Q6H PRN (Reason: Pain) RF: 0 levothyroxine 50 mcg capsule 50 mcg PO DAILY RF: 0 omeprazole 20 mg Capsule,Delayed Release(Dr/Ec) 20 mg PO BID RF: 0 Discontinued clonazepam [Klonopin] 1 mg tablet 1 mg PO BID PRN (Reason: anixety) RF: 0 amitriptyline 100 mg Tablet 200 mg PO DAILY RF: 0 No Action gabapentin 600 mg tablet 600 mg PO TID RF: 0 buspirone 10 mg tablet 10 mg PO TID Qty: 90 RF: 1 hydroxyzine HCl 50 mg tablet 50 mg PO QID PRN (Reason: insomnia/anxiety) Qty: 120 RF: 1 amitriptyline 100 mg tablet 200 mg PO DAILY 30 Days Qty: 60 RF: 1 oxycodone-acetaminophen [Percocet] 7.5-325 mg tablet 2 tab PO Q6H PRN (Reason: Pain) RF: 0 Discharge Orders: Discharge Order (Routine); Ordered 10/24/19 Ordered By: Ernie Clement Referrals: Valerie Quintero [Community Support Specilist] - 10/27/19 4:00 pm Slim Campoverde MD [Primary Care Provider] - Loretta Cunha [Therapist] - 10/31/19 8:45 am Mohsen Trujillo MD [Physician] - 11/19/19 1:45 pm Yaya Myles MD [Staff Physician] - Discharge Diet: Regular Discharge Activity: Resume usual activity Activity Restrictions/Additional Instructions: contact your pillowcase cleaner from [facility] as soon as you get out of the hospital and let her know how to reach you. Valerie Quintero [phone]. [phone] Discharge Date/Time: 10/24/19 18:23 Discharge Attestations NPU Time Spent in Discharge Care*: less than 30 min Specific Discharge Activities: Specific discharge activities: educating patient, discussing with case briefer/social workers/dc planners, documenting/other paperwork and evaluating patient/reviewing data Coding Level of Care Code Acute System Dispatcher for Barbra Fwd Diagnoses Adjustment disorder with depressed mood F43.21
[2019-10-24 14:00] VITALS: BP 121/74; PULSE 86; RESP 18; TEMP 36.9; O2SAT 96
[2019-10-24 16:48] VITALS: BP 121/74; PULSE 86; RESP 18; TEMP 36.9; O2SAT 96
== END 2019-10-24 18:23 | disposition home or self-care (01) | DRG 881 ==
LOC: ER 17:05 → NP 17:29
PROVIDERS: Admitting Provider Psychiatry & Neurology Psychiatry; Emergency Provider Emergency Medicine; PCP Urology; Visit Provider Psychiatry & Neurology Psychiatry
DX: F43.21 Adjustment disorder with depressed mood (principal); R45.851 Suicidal ideations; F33.40 Major depressive disorder, recurrent, in remission, unspecified; G62.9 Polyneuropathy, unspecified; Z96.649 Presence of unspecified artificial hip joint; E66.9 Obesity, unspecified
CPT/HCPCS: 12345; 80053; 80307; 85025; 99284

== ENCOUNTER → 2019-11-06 12:32 | Outpatient (BNVA) | payer MEDICARE, MEDICAID, SELFPAY | PROVIDERS: PCP Urology; Visit Provider Counselor Professional | DX: F43.12 Post-traumatic stress disorder, chronic (principal); F33.2 Major depressive disorder, recurrent severe without psychotic features | CPT/HCPCS: 90834 ==

== ENCOUNTER → 2019-11-19 13:52 | Outpatient (BNVA) | payer MEDICARE, MEDICAID, SELFPAY | PROVIDERS: Family Provider Family Medicine; PCP Urology; Visit Provider Psychiatry & Neurology Psychiatry | DX: F43.12 Post-traumatic stress disorder, chronic (principal); F33.2 Major depressive disorder, recurrent severe without psychotic features; F41.1 Generalized anxiety disorder | CPT/HCPCS: 99204 ==

== ENCOUNTER → 2019-12-19 11:03 | Outpatient (BNVA) | payer MEDICARE, MEDICAID, SELFPAY | PROVIDERS: PCP Urology; Visit Provider Psychiatry & Neurology Psychiatry | DX: F41.1 Generalized anxiety disorder (principal); F33.2 Major depressive disorder, recurrent severe without psychotic features; F43.12 Post-traumatic stress disorder, chronic | CPT/HCPCS: 99213 ==

== ENCOUNTER 2020-03-23 19:33 | Emergency (ER) | payer MEDICARE, MEDICAID, SELFPAY ==
[2019-10-22 15:50] VITALS: BP 125/80; BMI 28.6
--- NOTE | 2020-03-23 19:36 | XRR_ITS ---
PROCEDURE INFORMATION: Exam: XR Chest, 1 View Exam date and time: 03/23/2020 7:59 PM Age: 54 years old Clinical indication: Fever and shortness of breath and other: Fatigue; Additional info: SOB TECHNIQUE: Imaging protocol: XR of the chest Views: 1 view. COMPARISON: CR Chest 1 [place] [id number] 04/21/2019 2:28 PM FINDINGS: Lungs: Linear bibasilar opacities may reflect atelectasis or scarring. There are no confluent areas of airspace opacification. Pleural space: Unremarkable. No pleural effusion. No pneumothorax. Heart/Mediastinum: Unremarkable. No cardiomegaly. Bones/joints: Unremarkable. XR/XR chest 1V portable [id number] IMPRESSION: Mild bibasilar atelectasis versus scarring.
[2020-03-23 19:45] VITALS: BP 125/83; PULSE 95; RESP 14; TEMP 36.4; O2SAT 96; BMI 28.8
--- NOTE | 2020-03-23 19:59 | ECG_ITS ---
[facility] Test Date: 2020-03-23 Pat Name: Maria Victoria New Department: Room: Gender: Female Director Recreation: : 1965 Requested By: Alex Pelaez Order Number: [id number] Sravanthi MD: Roland Levin M.D. Measurements Intervals [place] Rate: 87 P: 21 CT: 167 QRS: -1 QRSD: 106 T: 36 QT: 355 QTc: 429 Interpretive Statements SINUS RHYTHM MODERATE VOLTAGE CRITERIA FOR LVH, CONSIDER NORMAL VARIANT [MEETS CRITERIA IN ONE OF: R(aVL), S(V1), R(V5), R(V5/V6)+S(V1)] NONSPECIFIC ST & T-WAVE ABNORMALITY Compared to ECG 04/21/2019 15:19:40 T-wave abnormality now present Electronically Signed On 03-24-2020 17:42:27 CDT by Roland Levin M.D. [id number]
[2020-03-23 20:13] LABS: Basophils % 0.2 %; Eosinophils # 0.1 10^3/uL (0.0-0.8); Eosinophils % 1.6 %; Hematocrit 34.8 % (37.0-47.0); Hemoglobin 10.4 g/dL (11.5-15.3); Lymphocytes # 3.3 10^3/uL (0.8-4.8); Lymphocytes % 59.1 %; Mean Corpuscular HGB Conc 29.9 g/dL (30.0-36.0); Mean Corpuscular Hemoglobin 22.9 pg (28.0-34.0); Mean Corpuscular Volume 76.5 fL (81-99); Mean Platelet Volume 9.2 fL (7.4-10.4); Monocytes # 0.4 10^3/uL (0.2-0.9); Monocytes % 6.4 %; Neutrophils # 1.8 10^3/uL (1.8-7.7); Neutrophils % 32.5 %; Nucleated Red Blood Cells % 0 %; Platelet Count 235 10^3/cmm (130-400); Red Blood Count 4.55 10^6/uL (4.1-5.3); Red Cell Distribution Width 15.7 % (12.1-15.1); White Blood Count 5.6 10^3/uL (4.0-10.0)
--- NOTE | 2020-03-23 20:13 | W.ED.GENADLT ---
HPI - General Adult General: Chief complaint: General Medical Stated complaint: sob; fever; fatigue Time Seen by Provider: 03/23/20 19:57 Source: patient Mode of arrival: ambulatory Limitations: no limitations History of Present Illness: HPI narrative: 54-year-old female states she has had shortness of breath, headache and generalized weakness over the last 2 months. She states she saw her PCP 4 weeks ago and states that she had no improvement. States she has has no energy anytime she walks she just gets very short of breath and tired. She does have a history of hypothyroidism and has not had her thyroid level drawn in a while. She also states the headache has been constant. She has not had any imaging for headache. She denies any chest pain or shortness of breath at rest currently. Associated symptoms: Reports chest pain and dyspnea; Deny headache(s), nausea, rash or vomiting Review of Systems Const: Denies: fever(s), chills, body aches or change in appetite Eyes: Denies: blurry vision or eye discomfort ENMT: Denies: throat pain or dental pain Card: Reports: chest pain Resp: Reports: dyspnea GI: Denies: abdominal pain, nausea, vomiting or diarrhea : Denies: dysuria Musc: Denies: neck pain or back pain Skin/Breast: Denies: rash Neuro: Reports: weakness in extremities; Denies: headache(s) Psych: Denies: depression Neil/Lymph: Denies: easy bruising All/Imm: Denies: urticaria PFSH ED PFSH: Family History Father , AT AGE 62 Cancer PROSTATE CANCER Grandmother Stroke Social History Smoking and tobacco status: never smoked Second hand smoke exposure: Yes (lives with son in law) Smoking risk assessment/counseling performed?: Yes Tobacco counseling given: counseling >3 minutes Alcohol intake: never Adopted: Yes (Grandparents adopted her.) Caregiver/support person: No Lives independently: No (Lives with step-daughter and son in law.) Household members: children Housing: Manufactured/Mobile home Marital status: / Number of children: 2 Number of grandchildren: 4 service: No Current occupational status: disabled Leisure activites: reading and other Leisure activities details: puzzles Sexually active: No Current gender identity: Female Financial difficulty paying for basics: Somewhat Hard Female Reproductive History: Para: 2 Spontaneous abortions: No Physical Exam Const: COMMON NORMALS: no acute distress, patient oriented x3 and healthy appearing HENMT: COMMON NORMALS: normocephalic and atraumatic HEAD & SCALP: normocephalic and atraumatic Eye: COMMON NORMALS: Equal, round and reactive pupils present and EOMs intact bilaterally PUPIL: Yes Equal, round and reactive pupils present Neck/C-Spine: COMMON NORMALS: full ROM and supple Chest: COMMONS NORMALS: normal inspection of the chest and normal palpation of entire chest wall Resp: COMMON NORMALS: normal respiratory effort, No retractions, No use of accessory muscles and clear to auscultation bilaterally AUSCULTATION: clear to auscultation bilaterally Cardio: COMMON NORMALS: regular rate, regular rhythm and No murmurs present (Cardio) RATE: regular rate RHYTHM: regular rhythm GI: COMMON NORMALS: Normal to inspection, nondistended, normoactive bowel sounds present, Soft to palpation, non-tender and no masses PALPATION: Yes Soft to palpation Extremity: COMMON NORMALS: normal to inspection and full ROM Neuro: COMMON NORMALS: patient oriented x3, moves all extremities and no focal motor deficits Psych: COMMON NORMALS: mental status grossly normal, Normal thought process present and cooperative THOUGHT PROCESS: Normal thought process present Skin: COMMON NORMALS: no rashes or lesions noted and no wounds GENERAL SKIN EXAM: no rashes or lesions noted Course Vital Signs: Vital signs: Vital Signs Temperature 97.5 F L 03/23/20 19:45 Pulse Rate 68 03/23/20 21:55 Respiratory Rate 20 H 03/23/20 21:55 Blood Pressure 124/87 03/23/20 21:55 Pulse Oximetry 98 03/23/20 21:55 MDM - General Adult MDM Narrative: Medical decision making narrative: Patient presents with headache along with weakness and dyspnea for months. Patient's lab work and imaging is all normal except for mildly elevated TSH. Symptoms could be due to hypothyroidism. Will increase her levothyroxine to 75 mics a day. Patient is stable for discharge and is to follow-up with primary care doctor in 3 to 5 days and return if worsening. She understands and agrees to plan. Lab Data: Labs: Lab Results 03/23/20 03/23/20 03/23/20 Range/Units 20:06 20:06 20:06 WBC 5.6 (4.0-10.0) 10^3/ uL RBC 4.55 (4.1-5.3) 10^6/u L Hgb 10.4 L (11.5-15.3) g/dL Hct 34.8 L (37.0-47.0) % MCV 76.5 L (81-99) fL MCH 22.9 L (28.0-34.0) pg MCHC 29.9 L (30.0-36.0) g/dL RDW 15.7 H (12.1-15.1) % Plt Count 235 (130-400) 10^3/c mm MPV 9.2 (7.4-10.4) fL Neut % (Auto) 32.5 % Lymph % (Auto) 59.1 % [place] % (Auto) 6.4 % Eos % (Auto) 1.6 % Baso % (Auto) 0.2 % Neut # (Auto) 1.8 (1.8-7.7) 10^3/u L Lymph # (Auto) 3.3 (0.8-4.8) 10^3/u L [place] # (Auto) 0.4 (0.2-0.9) 10^3/u L Eos # (Auto) 0.1 (0.0-0.8) 10^3/u L Baso # (Auto) 0.0 (0.0-0.1) 10^3/u L Nucleated RBC % (a uto) 0 % Nucleated RBCs # 0.0 /100WBC Sodium 141 (136-145) mmol/L Potassium 3.7 (3.5-5.1) mmol/L Chloride 102 (98-107) mmol/L Carbon Dioxide 27 (22-29) mmol/L Anion Gap 15.7 (5-19) BUN 6 (6-20) mg/dL Creatinine 0.6 (0.5-0.9) mg/dL GFR Calculation 103.4 (90-130) mL/min Glucose 123 H (65-115) mg/dL Calculated Osmolal ity 289 (285-295) mOsm/k g Calcium 9.1 (8.5-10.5) mg/dL Total Bilirubin 0.2 (0.15-1.2) mg/dL AST 17 (0-32) U/L ALT 14 (0-33) U/L Alkaline Phosphata se 116 H (35-105) IU/L Troponin T Baselin e 6 (0-10) ng/L NT-Pro-B Natriuret Pep 46 (0-125) pg/mL Total Protein 7.5 (6.6-8.7) g/dL Albumin 3.9 (3.5-5.2) g/dL Globulin 3.6 (1.3-4.6) g/dL TSH 5.15 H (0.27-4.20) uIU/ mL Imaging Data^: CXR: Attestation: I personally reviewed and interpreted this imaging study as follows: My impression: no acute abnormality CT Head: Radiologist's impression: [place] [address] CT Scan Report Signed Patient: Maria Victoria New Unit #: [id number] : 1965 Age/Sex: 54 / F ADM Date: 03/23/20 Loc: ER Room/Bed: Attending Dr: Ordering Provider/Ordering MD: Alex Pelaez MD Date of Service: 03/23/20 Procedure(s): CT head wo con* [id number] Accession Number(s): [id number] Report Number: [id number] PROCEDURE INFORMATION: Exam: CT Head Without Contrast Exam date and time: 03/23/2020 8:23 PM Age: 54 years old Clinical indication: Pain; Dizziness and other: Increased BP; Headache; Additional info: ZALDIVAR TECHNIQUE: Imaging protocol: Computed tomography of the head without contrast. Radiation optimization: All CT scans at this facility use at least one of these dose optimization techniques: automated exposure control; mA and/or kV adjustment per patient size (includes targeted exams where dose is matched to clinical indication); or iterative reconstruction. COMPARISON: CT head wo con* [id number] 10/07/2018 8:07 PM RADIATION DOSE METRICS: Total DLP (mGy-cm): 751.84 FINDINGS: Brain: Normal. No hemorrhage. Unremarkable white matter. No mass effect. Ventricles: Normal. No ventriculomegaly. Bones/joints: Unremarkable. No acute fracture. Sinuses: There is mild mucosal thickening in the sinuses. Mastoid air cells: Visualized mastoid air cells are well aerated. Soft tissues: Unremarkable. CT/CT head wo con* [id number] IMPRESSION: No acute intracranial abnormality. EKG Data^: EKG 1: Attestation: I personally reviewed and interpreted this EKG as follows: EKG interpretation date: 03/23/20 EKG interpretation time: 20:18 Interpretation: nsr hr [address] or t wave abnormalities qrs 106 qtc 400 Computer generated interpretation: Head CT 03/23/20 20:12 IMPRESSION: No acute intracranial abnormality. Radiation Dose CTDIVOL = (mGy): DLP = 751.84 (mGy-cm) Discharge Plan Discharge Patient Disposition: Home, Self-Care Clinical Impression: Weakness, Shortness of breath Condition: Stable Prescriptions: New levothyroxine 75 mcg capsule 75 mcg PO DAILY Qty: 30 RF: 0 No Action gabapentin 600 mg tablet 600 mg PO TID RF: 0 oxybutynin chloride 5 mg tablet 5 mg PO BID RF: 0 methadone 10 mg tablet 10 mg PO Q6H PRN (Reason: Pain) RF: 0 levothyroxine 50 mcg capsule 50 mcg PO DAILY RF: 0 oxycodone-acetaminophen [Percocet] 7.5-325 mg tablet 2 tab PO Q6H PRN (Reason: Pain) RF: 0 amitriptyline 100 mg tablet 200 mg PO DAILY 30 Days Qty: 60 RF: 2 buspirone 10 mg tablet 10 mg PO TID Qty: 90 RF: 2 hydroxyzine HCl 50 mg tablet 50 mg PO QID PRN (Reason: insomnia/anxiety) Qty: 120 RF: 2 clonazepam 1 mg tablet 1 mg PO BID PRN (Reason: Anxiety) RF: 0 Advil 200 mg Tablet 200 mg PO Q6H PRN (Reason: Pain) RF: 0 omeprazole 20 mg Capsule,Delayed Release(Dr/Ec) 20 mg PO BID RF: 0 Discharge Orders: Discharge Order (Routine); Ordered 03/23/20 Ordered By: Alex Pelaez Referrals: Yaya Myles MD [Primary Care Provider] - 1-3 days Discharge Diet: Advance as tolerated Discharge Activity: Resume usual activity Patient Instructions: Dyspnea (ED) Coding Level of Care Code ED Timber Appraiser for Chg Fwd Exam Comprehensive
[2020-03-23 20:38] LABS: Troponin(5th) Baseline 6 ng/L (0-10)
[2020-03-23 20:46] LABS: Alanine Aminotransferase 14 U/L (0-33); Albumin Level 3.9 g/dL (3.5-5.2); Alkaline Phosphatase 116 IU/L (35-105); Anion Gap 15.7 (5-19); Aspartate Amino Transferase 17 U/L (0-32); Blood Urea Nitrogen 6 mg/dL (6-20); Calcium 9.1 mg/dL (8.5-10.5); Carbon Dioxide 27 mmol/L (22-29); Chloride 102 mmol/L (98-107); Globulin 3.6 g/dL (1.3-4.6); Glomerular Filtration Rate 103.4 mL/min (90-130); Glucose 123 mg/dL (65-115); NT Pro B Type Natriuretic Pept 46 pg/mL (0-125); Osmolality Calculated 289 mOsm/kg (285-295); Potassium 3.7 mmol/L (3.5-5.1); Sodium 141 mmol/L (136-145); Thyroid Stimulating Hormone 5.15 uIU/mL (0.27-4.20); Total Bilirubin 0.2 mg/dL (0.15-1.2); Total Protein 7.5 g/dL (6.6-8.7)
[2020-03-23 21:55] VITALS: BP 124/87; PULSE 68; RESP 20; O2SAT 98
--- NOTE | 2020-03-23 21:59 | ECG_ITS ---
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 Measurements Intervals [place] Rate: 78 P: 16 LA: 167 QRS: 7 QRSD: 97 T: 51 QT: 393 QTc: 448 Interpretive Statements SINUS RHYTHM MINIMAL VOLTAGE CRITERIA FOR LVH, CONSIDER NORMAL VARIANT [MEETS CRITERIA IN ONE OF: R(aVL), S(V1), R(V5), R(V5/V6)+S(V1)] NONSPECIFIC T-WAVE ABNORMALITY Compared to ECG 03/23/2020 20:18:05 No significant changes Electronically Signed On 03-24-2020 17:45:41 CDT by Roland Levin M.D. [id number]
[2020-03-23 22:08] VITALS: BP 122/67; PULSE 78; RESP 18; O2SAT 96
[2020-03-23 22:14] LABS: INR 0.97 (0.8-1.2)
== END 2020-03-23 22:09 | disposition home or self-care (01) ==
PROVIDERS: Emergency Provider Emergency Medicine; PCP Family Medicine
DX: R06.02 Shortness of breath (principal); R53.1 Weakness; Z77.22 Contact with and (suspected) exposure to environmental tobacco smoke (acute) (chronic); R07.9 Chest pain, unspecified
CPT/HCPCS: 12345; 36415; 70450; 71045; 80053; 83880; 84443; 84484; 85025; 85610; 93005; 99283; 99284

== ENCOUNTER → 2020-05-12 09:26 | Outpatient (BNVA) | payer MEDICARE, MEDICAID, SELFPAY ==
[2019-10-22 15:50] VITALS: BP 125/80; BMI 28.6
== END ==
PROVIDERS: PCP Family Medicine; Visit Provider Psychiatry & Neurology Psychiatry
DX: F41.1 Generalized anxiety disorder (principal); F33.2 Major depressive disorder, recurrent severe without psychotic features; F43.12 Post-traumatic stress disorder, chronic
CPT/HCPCS: 99213

== ENCOUNTER 2020-06-24 12:33 | Emergency (ER) | payer MEDICARE, MEDICAID, SELFPAY ==
[2019-10-22 15:50] VITALS: BP 125/80; BMI 28.6
--- NOTE | 2020-06-24 12:35 | ECG_ITS ---
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 Measurements Intervals [place] Rate: 101 P: 16 [place]: 149 QRS: -2 QRSD: 94 T: 76 QT: 338 QTc: 438 Interpretive Statements SINUS TACHYCARDIA VOLTAGE CRITERIA FOR LVH [MEETS CRITERIA IN ONE OF: R(aVL), S(V1), R(V5), R(V5/V6)+S(V1)] MODERATE T-WAVE ABNORMALITY, CONSIDER LATERAL ISCHEMIA [-0.1+ mV T WAVE IN I/aVL/V5/V6] INTERPRETATION BASED ON A DEFAULT AGE OF 40 YEARS Compared to ECG 03/23/2020 21:23:12 Possible ischemia now present Sinus rhythm no longer present T-wave abnormality still present Electronically Signed On 06-24-2020 19:22:53 CDT by Masha Pereira M.D. [id number]
[2020-06-24 12:48] VITALS: BP 133/90; PULSE 116; RESP 16; TEMP 37.4; O2SAT 95; BMI 29.0
--- NOTE | 2020-06-24 13:49 | XR_ITS ---
WS: [id number] Portable AP upright chest, 06/24/2020 Clinical Data: chest pain Comparison: Portable chest, 03/23/2020. Findings: No nodules, masses or effusions are seen. The heart is normal. The pulmonary vascularity is not increased. No pneumonia or pneumothorax is seen. Monitor leads are on the chest wall. There is c lothing artifact overlying the left chest subcutaneous tissue. XR/XR chest 1V portable [id number] Impression: Negative chest.
[2020-06-24 13:57] LABS: Basophils % 0.5 %; Eosinophils # 0.1 10^3/uL (0.0-0.8); Eosinophils % 0.9 %; Hematocrit 36.8 % (37.0-47.0); Hemoglobin 11.1 g/dL (11.5-15.3); Lymphocytes # 3.4 10^3/uL (0.8-4.8); Lymphocytes % 51.9 %; Mean Corpuscular HGB Conc 30.2 g/dL (30.0-36.0); Mean Corpuscular Hemoglobin 22.7 pg (28.0-34.0); Mean Corpuscular Volume 75.1 fL (81-99); Mean Platelet Volume 9.1 fL (7.4-10.4); Monocytes # 0.4 10^3/uL (0.2-0.9); Monocytes % 6.1 %; Neutrophils # 2.67 10^3/uL (1.8-7.7); Neutrophils % 40.3 %; Nucleated Red Blood Cells % 0 %; Platelet Count 257 10^3/cmm (130-400); Red Cell Distribution Width 15.8 % (12.1-15.1); White Blood Count 6.6 10^3/uL (4.0-10.0)
[2020-06-24 13:58] VITALS: BP 129/95; PULSE 89; RESP 18; O2SAT 96
[2020-06-24 14:16] LABS: Alanine Aminotransferase 12 U/L (0-33); Albumin Level 4.3 g/dL (3.5-5.2); Alkaline Phosphatase 117 IU/L (35-105); Anion Gap 13.1 (5-19); Aspartate Amino Transferase 19 U/L (0-32); Blood Urea Nitrogen 7 mg/dL (6-20); Calcium 9.8 mg/dL (8.5-10.5); Carbon Dioxide 27 mmol/L (22-29); Chloride 100 mmol/L (98-107); Globulin 3.4 g/dL (1.3-4.6); Glomerular Filtration Rate 86.6 mL/min (90-130); Glucose 99 mg/dL (65-115); Osmolality Calculated 280 mOsm/kg (285-295); Potassium 4.1 mmol/L (3.5-5.1); Sodium 136 mmol/L (136-145); Total Bilirubin 0.2 mg/dL (0.15-1.2); Total Protein 7.7 g/dL (6.6-8.7)
[2020-06-24 14:19] LABS: Troponin(5th) Baseline 6 ng/L (0-10)
--- NOTE | 2020-06-24 14:50 | W.ED.CHESTPA ---
HPI - Chest Pain General: Chief Complaint: General Medical Stated Complaint: had CP *1 week ago-now resolved Time Seen by Provider: 06/24/20 13:49 Source: patient Mode of arrival: ambulatory Limitations: no limitations History of Present Illness: HPI narrative: Patient is a 54-year-old female who presents to ED today wanting evaluation for an episode of chest pain that happened 13 days ago. Patient tells me 13 days ago she was walking to the bathroom when she began having severe chest pain that felt like somebody was pulling on my heart . She states pain lasted a few minutes and then subsided on its own. She has not had any further episodes of pain. When asked why patient is presenting to the emergency department 13 days later she states that several individuals told her she needed to get it checked out and in addition she had contacted her PCP who recommended that she come to the emergency department. Patient has no previous cardiac history. She does report previous panic attacks and increased stress but states this felt different. She has no recent cardiac stress tests or echocardiograms. MD complaint: chest pain Onset (ago): day(s) (13 days ago) Timing of current episode: now resolved Prior episodes: No Pain location: substernal Pain radiation: none Relieving factors: nothing Exacerbating factors: nothing Associated symptoms: Reports no associated symptoms; Deny abdominal pain, dyspnea, fever(s), nausea, palpitations, syncope or vomiting Treatment prior to arrival: none Related Data: On Oral Contraceptives: No Review of Systems Const: Denies: fever(s), chills, body aches, fatigue or malaise Eyes: Denies: change in vision or blurry vision Card: Reports: chest pain; Denies: palpitations, irregular heart rhythm, edema, swelling of feet/ankles, lightheadedness, syncope, pre-syncope, dyspnea on exertion, orthopnea, leg pain with exertion or acrocyanosis Resp: Denies: dyspnea, productive cough, non-productive cough, pain on inspiration, change in phlegm color, hemoptysis or chest congestion GI: Denies: abdominal pain, nausea, vomiting, heartburn or diarrhea : Denies: flank pain or dysuria Musc: Denies: neck pain, back pain or joint pain Skin/Breast: Denies: rash Neuro: Denies: headache(s), numbness in extremities, weakness in extremities, sensory changes, lack of coordination, frequent falls, dizziness, vertigo, confusion or Slurred speech present PFSH ED PFSH: Family History Father , AT AGE 62 Cancer PROSTATE CANCER Grandmother Stroke Social History Smoking and tobacco status: never smoked Second hand smoke exposure: Yes (lives with son in law) Smoking risk assessment/counseling performed?: Yes Tobacco counseling given: counseling >3 minutes Alcohol intake: never Adopted: Yes (Grandparents adopted her.) Caregiver/support person: No Lives independently: No (Lives with step-daughter and son in law.) Household members: children Housing: Manufactured/Mobile home Marital status: / Number of children: 2 Number of grandchildren: 4 service: No Current occupational status: disabled Leisure activites: reading and other Leisure activities details: puzzles Sexually active: No Current gender identity: Female Financial difficulty paying for basics: Somewhat Hard Female Reproductive History: Para: 2 Spontaneous abortions: No Physical Exam Const: COMMON NORMALS: no acute distress, patient oriented x3, no limitations and alert GENERAL APPEARANCE: cooperative ORIENTATION/CONSCIOUSNESS: Yes oriented to person, Yes oriented to place and Yes oriented to time HENMT: COMMON NORMALS: normocephalic and atraumatic HEAD & SCALP: normocephalic and atraumatic Chest: COMMONS NORMALS: normal inspection of the chest and normal palpation of entire chest wall Resp: COMMON NORMALS: normal respiratory effort and clear to auscultation bilaterally AUSCULTATION: clear to auscultation bilaterally Cardio: COMMON NORMALS: regular rate and regular rhythm RATE: regular rate RHYTHM: regular rhythm Extremity: COMMON NORMALS: no calf tenderness and no pedal edema GENERAL: Yes normal exam except as noted Neuro: HALINA COMA SCALE: document GCS findings Halina coma scale eye opening: Spontaneous [place] coma scale verbal response: Orientated Halina coma scale motor response: Obey commands [place] coma scale total score: 15 COMMON NORMALS: patient oriented x3, CN's II-XII intact bilaterally, moves all extremities, no focal motor deficits, no sensory deficits noted and gait normal SENSORIUM/ORIENTATION: Yes alert, Yes oriented to person, Yes oriented to place and Yes oriented to time OTHER: lisp/mild slurred speech noted in patient-when asked she states this is normal and states in addition she recently got new dentures Skin: COMMON NORMALS: no rashes or lesions noted GENERAL SKIN EXAM: no rashes or lesions noted Course Vital Signs: Vital signs: Vital Signs Temperature 99.3 F 06/24/20 12:48 Pulse Rate 87 06/24/20 15:20 Respiratory Rate 17 06/24/20 15:20 Blood Pressure 143/102 06/24/20 15:20 Pulse Oximetry 95 06/24/20 15:20 MDM - Chest Pain MDM Narrative: Medical decision making narrative: Patient had one episode of chest pain 13 days ago. She has been asymptomatic since that episode. She has a normal CXR here. Her EKG without ischemic changes. She has a normal troponin. Patient will be set up with an outpatient stress test with results faxed to PCP. Return to ED precautions given. Patient verbalizes understanding. Lab Data: Labs: Lab Results 06/24/20 06/24/20 06/24/20 Range/Units 13:52 13:52 13:52 WBC 6.6 (4.0-10.0) 10^3/ uL RBC 4.90 (4.1-5.3) 10^6/u L Hgb 11.1 L (11.5-15.3) g/dL Hct 36.8 L (37.0-47.0) % MCV 75.1 L (81-99) fL MCH 22.7 L (28.0-34.0) pg MCHC 30.2 (30.0-36.0) g/dL RDW 15.8 H (12.1-15.1) % Plt Count 257 (130-400) 10^3/c mm MPV 9.1 (7.4-10.4) fL Neut % (Auto) 40.3 % Lymph % (Auto) 51.9 % [place] % (Auto) 6.1 % Eos % (Auto) 0.9 % Baso % (Auto) 0.5 % Neut # (Auto) 2.67 (1.8-7.7) 10^3/u L Lymph # (Auto) 3.4 (0.8-4.8) 10^3/u L [place] # (Auto) 0.4 (0.2-0.9) 10^3/u L Eos # (Auto) 0.1 (0.0-0.8) 10^3/u L Baso # (Auto) 0.0 (0.0-0.1) 10^3/u L Nucleated RBC % (a uto) 0 % Nucleated RBCs # 0.0 /100WBC Sodium 136 (136-145) mmol/L Potassium 4.1 (3.5-5.1) mmol/L Chloride 100 (98-107) mmol/L Carbon Dioxide 27 (22-29) mmol/L Anion Gap 13.1 (5-19) BUN 7 (6-20) mg/dL Creatinine 0.7 (0.5-0.9) mg/dL GFR Calculation 86.6 L (90-130) mL/min Glucose 99 (65-115) mg/dL Calculated Osmolal ity 280 L (285-295) mOsm/k g Calcium 9.8 (8.5-10.5) mg/dL Total Bilirubin 0.2 (0.15-1.2) mg/dL AST 19 (0-32) U/L ALT 12 (0-33) U/L Alkaline Phosphata se 117 H (35-105) IU/L Troponin T Baselin e 6 (0-10) ng/L Total Protein 7.7 (6.6-8.7) g/dL Albumin 4.3 (3.5-5.2) g/dL Globulin 3.4 (1.3-4.6) g/dL Imaging Data^: CXR: Radiologist's impression: [place] [address] XRay Report Signed Patient: Maria Victoria New Unit #: [id number] : 1965 Age/Sex: 54 / F ADM Date: 06/24/20 Loc: ER Room/Bed: Attending Dr: Ordering Provider/Ordering MD: Xin Olsen Date of Service: 06/24/20 Procedure(s): XR chest 1V portable [id number] Accession Number(s): [id number] Report Number: [id number] WS: [id number] Portable AP upright chest, 06/24/2020 Clinical Data: chest pain Comparison: Portable chest, 03/23/2020. Findings: No nodules, masses or effusions are seen. The heart is normal. The pulmonary vascularity is not increased. No pneumonia or pneumothorax is seen. Monitor leads are on the chest wall. There is clothing artifact overlying the left chest subcutaneous tissue. XR/XR chest 1V portable [id number] Impression: Negative chest. Dictated By: Ann-Marie Dominique MD Signed By: Ann-Marie Dominique MD Signed Date/Time: 06/24/201414 DD/ 12 Discharge Plan Discharge Patient Disposition: Home Clinical Impression: Chest pain Qualifiers: Chest pain type: unspecified Qualified Code(s): R07.9 - Chest pain, unspecified Condition: Stable Prescriptions: No Action gabapentin 600 mg tablet 600 mg PO TID RF: 0 oxybutynin chloride 5 mg tablet 5 mg PO BID RF: 0 methadone 10 mg tablet 10 mg PO Q6H PRN (Reason: Pain) RF: 0 oxycodone-acetaminophen [Percocet] 7.5-325 mg tablet 2 tab PO Q6H PRN (Reason: Pain) RF: 0 buspirone 10 mg tablet 10 mg PO TID Qty: 90 RF: 2 amitriptyline 100 mg tablet 200 mg PO DAILY 30 Days Qty: 60 RF: 2 hydroxyzine HCl 50 mg tablet 50 mg PO QID PRN (Reason: insomnia/anxiety) Qty: 120 RF: 2 ibuprofen [Advil] 200 mg Tablet 200 mg PO Q6H PRN (Reason: Pain) RF: 0 levothyroxine 75 mcg capsule 75 mcg PO DAILY Qty: 30 RF: 0 omeprazole 20 mg Capsule,Delayed Release(Dr/Ec) 20 mg PO BID RF: 0 Discharge Orders: Discharge Order (Routine); Ordered 06/24/20 Ordered By: Xin Olsen Referrals: Yaya Myles MD [Primary Care Provider] - Patient Instructions: Chest Pain (ED) Activity Restrictions/Additional Instructions: As discussed case management will be contacting you to set you up with an outpatient stress test. Results will be faxed to Dr. Myles. You need to return to ED for further episodes of chest pain. Discharge Date/Time: 06/24/20 15:19 Coding Level of Care Code ED Supervisor Phosphoric Acid for Chg Fwd Exam Expanded Problem Focused
[2020-06-24 15:03] VITALS: BP 143/102; PULSE 92; RESP 18; O2SAT 96
--- NOTE | 2020-06-24 15:17 | DCPLANNER ---
customer care manager was asked to schedule an out patient stress test for patient. customer care manager faxed order to centralized scheduling, will call for appointment information.
[2020-06-24 15:20] VITALS: BP 143/102; PULSE 87; RESP 17; O2SAT 95
--- NOTE | 2020-06-30 12:37 | DCPLANNER ---
Patient has an outpatient stress test scheduled for , July 15, 2020 at 11:30. Centralized scheduling will call patient with appointment information.
--- NOTE | 2020-07-16 17:33 | DCPLANNER ---
Patient had a follow up appointment scheduled for 07.15.20 with a stress test - patient did attend stress test.
== END 2020-06-24 15:19 | disposition home or self-care (01) ==
PROVIDERS: Emergency Medicine; Emergency Provider Physician Assistant; PCP Family Medicine
DX: R07.9 Chest pain, unspecified (principal); Z77.22 Contact with and (suspected) exposure to environmental tobacco smoke (acute) (chronic)
CPT/HCPCS: 12345; 36415; 71045; 80053; 84484; 85025; 93005; 99282; 99283

== ENCOUNTER 2020-07-15 08:34 | Outpatient (CLI) | payer MEDICARE, MEDICAID, SELFPAY ==
[2019-10-22 15:50] VITALS: BP 125/80; BMI 28.6
--- NOTE | 2020-07-15 08:49 | NMCV_ITS ---
NM angel perf SPECT r/s* [id number] Maria Victoria New Age: 54 Gender: F : 1965 Exam Date: 07/15/2020 09:20 Ordering Phys: Xin Olsen Technologist: LIMA Hoskins Exam Location: [facility] Indications: CHEST PAIN STRESS TEST Please see separate stress test report in [facility] for full findings IMAGE PROTOCOL Rest/Stress 1 Lexiscan Day Radiopharmaceutical Dose (mCi) Administration Site Administered by Rest: Tc-99m 10.6 IV LIMA Scott Sestamibi Stress:Tc-99m 32.6 IV LIMA Hoskins Sestamibi Rest: 15-Jul-2020 30 Discovery 630 Stress: 15-Jul-2020 60 Discovery 630 0.4mg Lexiscan. Supine position only as patient was unable to lay prone. SPECT RESULTS Technical Quality: Excellent Raw Data Analysis: Normal Image Corrections: No attenuation or motion correction applied Summed Stress Score: 0 Summed Rest Score: 1 Summed Difference Score: 0 PERFUSION FINDINGS Small area of decreased tracer uptake was noted in the mid anterior wall region. No significant reversibility was noted in this area FUNCTIONAL RESULTS (calculated via Gated SPECT) Stress Image LV EF (%): 70 Stress EDV (mL):90 TID: 1.06 Stress ESV (mL):27 FUNCTIONAL FINDINGS: Segmental wall motion analysis revealing no gross wall motion normalities IMPRESSIONS 1. Myocardial perfusion imaging revealing small area of persistent decreased tracer uptake in the mid anterior wall region, suggestive of myocardial scarring versus attenuation artifact. 2. Normal LV ejection fraction of 70%. 3. LV wall motion analysis revealing no gross wall motion abnormalities. 4. Normal LV volume. No significant coronary ischemia, based on the above findings Dr Masha Pereira MD FACC (Electronically Signed) Final Date: 15 July 2020 12:49 S
--- NOTE | 2020-07-15 08:49 | ECG_ITS ---
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 Interpretive Statements NAME OF STUDY: LEXISCAN SESTAMIBI STRESS TEST INDICATION: Chest PainRESULTS TO DIVYA SLADE MD PROCEDURE: At the baseline, the EKG revealed normal sinus rhythm with nonspecific ST changes. The baseline blood pressure was 155/96 mm Hg with a heart rate of intraventricular conduction delay beats/min. Lexiscan was infused over a period of 20 seconds. A total of 0.4 milligrams of Lexiscan was infused. The stress phase was continued for a total of 5 minutes. Heart rate at the end of the stress phase was 78 with a blood pressure 148/92. The EKG at the peak infusion revealed no significant changes. Sestamibi was injected 20 seconds after the Lexiscan infusion. Blood pressure at the end of the recovery phase was 145/92 with a heart rate of 74 per minute. CONCLUSION: 1. No significant EKG changes with the LexiScan infusion 2. No LexiScan induced chest pain or cardiac arrhythmia 3. Normal blood pressure and heart rate response 4. Sestamibi/sestamibi perfusion scan pending; see separate report. Electronically Signed On 07-16-2020 20:51:53 CDT by Masha Pereira M.D. [id number]
[2020-07-15 08:51] VITALS: BMI 24.6
--- NOTE | 2020-07-15 10:22 | SUR.PREOP ---
Patient reports no pain or discomfort prior to the start of the procedure.
[2020-07-15] MEDS: regadenoson 0.4 Mg/5 ml Syringe IVP (10:24)
[2020-07-15 10:46] VITALS: BP 155/68; PULSE 65
== END 2020-07-15 08:35 | disposition home or self-care (01) ==
LOC: RAD 08:42 → CDL 08:49
PROVIDERS: PCP Family Medicine; Visit Provider Physician Assistant
DX: R07.9 Chest pain, unspecified (principal)
CPT/HCPCS: 78452; 93017; A9500; J2785

== ENCOUNTER → 2020-07-26 14:28 | Outpatient (BNVA) | payer MEDICARE, MEDICAID, SELFPAY ==
[2019-10-22 15:50] VITALS: BP 125/80; BMI 28.6
== END ==
PROVIDERS: PCP Family Medicine; Visit Provider Psychiatry & Neurology Psychiatry
DX: F33.2 Major depressive disorder, recurrent severe without psychotic features (principal); F41.1 Generalized anxiety disorder; F43.12 Post-traumatic stress disorder, chronic
CPT/HCPCS: 99214

== ENCOUNTER → 2020-08-17 14:11 | Outpatient (BNVA) | payer MEDICARE, MEDICAID, SELFPAY ==
[2019-10-22 15:50] VITALS: BP 125/80; BMI 28.6
== END ==
PROVIDERS: PCP Family Medicine; Visit Provider Psychiatry & Neurology Psychiatry
DX: F33.2 Major depressive disorder, recurrent severe without psychotic features (principal); F41.1 Generalized anxiety disorder; F43.12 Post-traumatic stress disorder, chronic
CPT/HCPCS: 99213

== ENCOUNTER → 2020-10-21 10:22 | Outpatient (BNVA) | payer MEDICARE, MEDICAID, SELFPAY ==
[2019-10-22 15:50] VITALS: BP 125/80; BMI 28.6
== END ==
PROVIDERS: PCP Family Medicine; Visit Provider Psychiatry & Neurology Psychiatry
DX: F33.2 Major depressive disorder, recurrent severe without psychotic features (principal); F41.1 Generalized anxiety disorder; F43.12 Post-traumatic stress disorder, chronic
CPT/HCPCS: 99214

== ENCOUNTER 2020-10-28 13:49 | Outpatient (CLI) | payer MEDICARE, MEDICAID, SELFPAY ==
[2019-10-22 15:50] VITALS: BP 125/80; BMI 28.6
--- NOTE | 2020-10-28 13:57 | XR_ITS ---
WS: [id number] SCREENING DEXA SCAN Mister Bell CLINICAL INFORMATION: POSTMENOPAUSAL COMPARISON: None. FINDINGS: The L1-L4 bone mineral density measures 0.940 g/cm2. This corresponds to a T score score of -2.0 and Z score of -2.1. Left femoral neck bone mineral density measures 0.75. This corresponds to a T score of -2.0 and Z sco re of -2.1. XR/XR DEXA axial skeleton* [id number] IMPRESSION: Osteopenia Patient's FRAX calculated 10 year probability for major osteoporotic fracture i s 31.7 % and osteoporotic hip fracture is 4.3%.
== END 2020-10-28 13:50 | disposition home or self-care (01) ==
LOC: RADWPI 13:53
PROVIDERS: PCP Family Medicine; Visit Provider Family Medicine
DX: Z78.0 Asymptomatic menopausal state; M85.88 Other specified disorders of bone density and structure, other site
CPT/HCPCS: 77080

== ENCOUNTER 2020-11-18 10:47 | Outpatient (CLI) | payer MEDICARE, MEDICAID, SELFPAY ==
[2019-10-22 15:50] VITALS: BP 125/80; BMI 28.6
[2020-11-09 10:31] VITALS: BP 125/80; BMI 28.6
[2020-11-18] MEDS: iohexol 300 mg/mL 50 mL Btl PO (11:38)
[2020-11-18] MEDS: iohexol 300 mg/mL 100 mL Btl IV (13:00)
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
== END 2020-11-18 10:48 | disposition home or self-care (01) ==
PROVIDERS: PCP Family Medicine; Visit Provider Surgery
DX: R14.0 Abdominal distension (gaseous) (principal); Z90.49 Acquired absence of other specified parts of digestive tract; Q42.8 Congenital absence, atresia and stenosis of other parts of large intestine; K76.0 Fatty (change of) liver, not elsewhere classified; R16.0 Hepatomegaly, not elsewhere classified
CPT/HCPCS: 74177; Q9967

== ENCOUNTER → 2020-12-03 13:36 | Outpatient (BNVA) | payer MEDICARE, MEDICAID, SELFPAY ==
[2020-11-09 10:31] VITALS: BP 125/80; BMI 28.6
== END ==
PROVIDERS: PCP Family Medicine; Visit Provider Surgery
DX: Z20.822 Contact with and (suspected) exposure to COVID-19 (principal)
CPT/HCPCS: 87635

== ENCOUNTER 2020-12-18 21:05 | Emergency (ER) | payer MEDICARE, MEDICAID, SELFPAY ==
[2020-11-09 10:31] VITALS: BP 125/80; BMI 28.6
[2020-12-18 21:21] VITALS: BP 95/57; PULSE 93; RESP 18; TEMP 37; O2SAT 92; BMI 34.0
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
[2020-12-18] MEDS: HYDROcodone-acetaminophen 5-325 mg Tablet 1 TAB PO (22:57)
[2020-12-18 22:58] VITALS: BP 108/64; PULSE 87; RESP 17; O2SAT 91
--- NOTE | 2020-12-18 23:09 | PC.NURSE ---
report received from shara espinosa and care transferred to SHARA Boswell
[2020-12-18 23:11] VITALS: BP 111/48; PULSE 74; RESP 17; O2SAT 93
[2020-12-18 23:36] LABS: Basophils % 0.3 %; Eosinophils # 0.2 10^3/uL (0.0-0.8); Eosinophils % 2.3 %; Hematocrit 32.8 % (37.0-47.0); Hemoglobin 9.5 g/dL (11.5-15.3); Lymphocytes # 2.2 10^3/uL (0.8-4.8); Lymphocytes % 33.7 %; Mean Corpuscular Hemoglobin 23.3 pg (28.0-34.0); Mean Corpuscular Volume 80.6 fL (81-99); Mean Platelet Volume 9.3 fL (7.4-10.4); Monocytes # 0.5 10^3/uL (0.2-0.9); Monocytes % 7.6 %; Neutrophils # 3.66 10^3/uL (1.8-7.7); Neutrophils % 55.8 %; Nucleated Red Blood Cells % 0 %; Platelet Count 225 10^3/cmm (130-400); Red Blood Count 4.07 10^6/uL (4.1-5.3); Red Cell Distribution Width 15.8 % (12.1-15.1); White Blood Count 6.6 10^3/uL (4.0-10.0)
[2020-12-18] MEDS: sodium chloride 0.9% 500 ML 999 ML IV (23:55)
[2020-12-18 23:58] LABS: Alanine Aminotransferase 15 U/L (0-33); Alkaline Phosphatase 126 IU/L (35-105); Anion Gap 13.2 (5-19); Aspartate Amino Transferase 26 U/L (0-32); Blood Urea Nitrogen 12 mg/dL (6-20); Calcium 9.3 mg/dL (8.5-10.5); Carbon Dioxide 29 mmol/L (22-29); Chloride 101 mmol/L (98-107); Glomerular Filtration Rate 74.2 mL/min (90-130); Glucose 106 mg/dL (65-115); Lactate (Lactic Acid level) 0.8 mmol/L (0.5-2.2); Osmolality Calculated 288 mOsm/kg (285-295); Potassium 4.2 mmol/L (3.5-5.1); Sodium 139 mmol/L (136-145); Total Bilirubin 0.4 mg/dL (0.15-1.2)
[2020-12-19] VITALS (10 sets, daily range): BP systolic 104–117; BP diastolic 59–69; PULSE 72–79; RESP 16–19; O2SAT 93–98
[2020-12-19] MEDS: albuterol 8 gm MDI 2 PUFF INHALATION
--- NOTE | 2020-12-19 00:10 | CTR_ITS ---
PROCEDURE INFORMATION: Exam: CT Angiography Chest With Contrast Exam date and time: 12/19/2020 12:22 AM Age: 54 years old Clinical indication: Shortness of breath; Additional info: Hypoxia, abnormal XR chest TECHNIQUE: Imaging protocol: Computed tomographic angiography of the chest with contrast. 3D rendering (Not supervised by radiologist): MIP and/or 3D reconstructed images were created by the technologist. Radiation optimization: All CT scans at this facility use at least one of these dose optimization techniques: automated exposure control; mA and/or kV adjustment per patient size (includes targeted exams where dose is matched to clinical indication); or iterative reconstruction. Contrast material: OMNI 350; Contrast volume: 64 ml; Contrast route: INTRAVENOUS (IV); COMPARISON: CTA Chest-Pulmonary Emb [id number] 01/01/2015 9:23 PM RADIATION DOSE METRICS: Total DLP (mGy-cm): 511.46 FINDINGS: Pulmonary arteries: Pulmonary arteries are well opacified. Pulmonary arteries are normal in caliber. No filling defects are demonstrated. No evidence of pulmonary embolism. Aorta: The thoracic aorta appears unremarkable. No aneurysm or dissection demonstrated. Lungs: Mild linear atelectasis in the right upper lobe. Minimal dependent atelectasis at the lung bases. Mild nonspecific ground-glass density in the bilateral lower lobes. Mild bronchiectasis in the bilateral lower lobes. Pleural spaces: Unremarkable. No pneumothorax. No pleural effusion. Heart: Mild cardiomegaly is noted. No pericardial effusion. Mediastinal space: The esophagus is mildly distended with fluid and air, likely indicating gastroesophageal reflux. Lymph nodes: No pathologically enlarged lymph nodes are demonstrated. Liver: Decreased hepatic density is noted, consistent with hepatic steatosis. Stomach and bowel: Postop changes consistent with gastric bypass surgery are noted. Bones/joints: Mild degenerative spine changes. No acute osseous abnormality. Soft tissues: The soft tissues appear unremarkable. CT/CT angio chest PE protcl [id number] IMPRESSION: 1. Pulmonary arteries appear unremarkable. No evidence of pulmonary embolism. 2. No evidence of thoracic aortic aneurysm or dissection. 3. Mild cardiomegaly is noted. 4. Mild linear atelectasis in the right upper lobe. Minimal dependent atelectasis at the lung bases. Mild nonspecific ground-glass density in the bilateral lower lobes. Mild bronchiectasis in the bilateral lower lobes. This suggests nonspecific inflammatory or infectious disease. No consolidative pulmonary infiltrates. 5. The esophagus is mildly distended with fluid and air, likely indicating gastroesophageal reflux. 6. Decreased hepatic density is noted, consistent with hepatic steatosis. Radiation Dose CTDIVOL = (mGy): DLP = 511.46 (mGy-cm)
[2020-12-19] MEDS: iohexol 350 mg/mL 100 mL Btl IV (00:31)
[2020-12-19 01:43] LABS: C Reactive Protein 1.5 mg/L (0.0-4.9)
[2020-12-19] MEDS: dexamethasone 4 mg Tablet 10 MG PO (02:04)
[2020-12-19] MEDS: azithromycin 250 mg Tablet 500 MG PO (02:05)
[2020-12-19 02:08] LABS: SARS Covid-2 Antigen Negative (Negative)
[2020-12-19 02:47] LABS: Erythrocyte Sedimentation Rate 36 mm/hr (0-15)
[2020-12-19] MEDS: cefTRIAXone 1,000 MG in sodium chloride 0.9% (plus) 50 ML 100 MG IV (02:50)
[2020-12-19] MEDS: acetaminophen 500 mg Tablet 1000 MG PO (02:50)
[2020-12-20 14:05] LABS: Coronavirus Test Green County Not Detected
--- NOTE | 2020-12-21 09:28 | PC.NURSE ---
PT CONTACTED AND GIVEN THE RESULTS OF HER COVID TEST
--- NOTE | 2020-12-21 10:37 | DCPLANNER ---
foster care case manager had message to schedule a follow up appointment for patient with Dr. Myles. foster care case manager called [facility], spoke with Lesa, gave clinic patients information. A follow up appointment was scheduled for , December 23, 2020 at 10:[address] Myles. foster care case manager called phone number [phone], unable to speak with patient at this time, a voicemail was left for patient to return community case manager phone call for appointment information.
--- NOTE | 2021-02-18 09:15 | DCPLANNER ---
Patient had a follow up appointment scheduled for 12.23.[address] Myles at [facility] -patient did not attend appointment.
== END 2020-12-19 06:12 | disposition home or self-care (01) ==
PROVIDERS: Emergency Provider Nurse Practitioner Family; PCP Family Medicine
DX: S16.1XXA Strain of muscle, fascia and tendon at neck level, initial encounter (principal); S00.03XA Contusion of scalp, initial encounter; J18.9 Pneumonia, unspecified organism; Z20.822 Contact with and (suspected) exposure to COVID-19; I10 Essential (primary) hypertension; X58.XXXA Exposure to other specified factors, initial encounter
CPT/HCPCS: 70450; 71045; 71275; 72125; 80053; 83605; 85025; 85651; 86140; 87426; 87635; 94640; 96365; 99284; J0696; J3535; J7040; J8540; Q0144; Q9967

== ENCOUNTER → 2021-01-07 10:14 | Outpatient (BNVA) | payer OTHER, SELFPAY ==
[2020-11-09 10:31] VITALS: BP 125/80; BMI 28.6
== END ==
PROVIDERS: PCP Family Medicine; Visit Provider Psychiatry & Neurology Psychiatry
DX: F41.1 Generalized anxiety disorder (principal); Z79.890 Hormone replacement therapy; Z79.899 Other long term (current) drug therapy
CPT/HCPCS: 80061; 83036

== ENCOUNTER → 2021-01-21 09:38 | Outpatient (BNVA) | payer MEDICARE, MEDICAID, SELFPAY ==
[2020-11-09 10:31] VITALS: BP 125/80; BMI 28.6
== END ==
PROVIDERS: PCP Family Medicine; Visit Provider Surgery
DX: Z01.812 Encounter for preprocedural laboratory examination (principal); Z20.822 Contact with and (suspected) exposure to COVID-19
CPT/HCPCS: 87635

== ENCOUNTER 2021-01-26 08:40 | Day surgery (SDC) | payer MEDICARE, MEDICAID, SELFPAY ==
[2020-11-09 10:31] VITALS: BP 125/80; BMI 28.6
[2021-01-24 14:22] VITALS: BMI 34.0
[2021-01-25 16:20] VITALS: BP 104/59; BMI 34.0
--- NOTE | 2021-01-26 10:47 | P.HP_ITS ---
Same Day Surgery H&P Indication for Procedure/HPI DATE OF PROCEDURE: January 26, 2021 CHIEF COMPLAINT/INDICATIONFOR SURGICAL PROCEDURE: Abdominal pain Concern for rectal prolapse PREOP DIAGNOSIS: Bloating PLANNED PROCEDRUE: Operation Date: 01/26/21 08:30 Proposed Procedures p EGD 19084 [id number] R10.9(Not Applicable) - Zaid Osborne MD s Colonoscopy(Not Applicable) - Zaid Osborne MD October 14 clinic visit This is a pleasant 54 years old female patient continues to have bloating symptoms and epigastric pain mostly dull aching and gets worse with greasy food and patient reports that she does have oily stool. Patient reports that she had history of Vance-en-Y gastric bypass 10 years ago. Also gives history of rectal prolapse surgery about 12 years ago, previous colonoscopy about 10 years ago was within normal limits. Patient was seen an devaluated before in [facility] office for potential Upper endoscopy and colonoscopy , that did not take place for unclear reason. Patient reports to me that she is concerned that she might have pancreatic cancer as her did and she is worried about that. Interim history 01/27/2020 Patient comes today for diagnostic EGD and colonoscopy because of history of epigastric pain. And colonoscopy as her last 1 was done 12 years ago ROS All systems have been reviewed negative except as per the above or per problem list Medications/Allergies* Home Medications Medication Instructions Recorded Confirmed Type methadone 10 mg tablet 10 mg PO BID PRN 10/08/19 01/24/21 History oxybutynin chloride 5 mg tablet 5 mg PO BID 10/08/19 01/24/21 History omeprazole 20 mg PO BID 10/17/19 01/24/21 History gabapentin 600 mg tablet 600 mg PO TID 11/19/19 01/24/21 History ibuprofen [Advil] 200 mg PO Q6H PRN 03/23/20 01/24/21 History clonazepam 1 mg tablet 1 mg PO BID tab 08/10/20 01/24/21 History Allergies/Adverse Reactions Allergy/AdvReac Type Severity Reaction Status Date / Time amoxicillin Allergy Intermediate rash Verified 01/26/21 10:50 egg Allergy Intermediate Vomiting Verified 01/26/21 10:50 morphine Allergy Intermediate rash Verified 01/26/21 10:50 Penicillins Allergy Intermediate ALGY-Rash Verified 01/26/21 10:50 promethazine Allergy Intermediate rash Verified 01/26/21 10:50 nalbuphine [From Nubain] AdvReac Intermediate ADR-Agitate Verified 01/26/21 10:50 d Pertinent History/Comorbid Conditions* Medical History (Updated 12/27/20 @ 00:01 by ) Atypical chest pain Benign essential HTN Cataract History of amputation of great toe of both feet Hx of chest pain Hx of shortness of breath Hypothyroidism Incontinence in female Neuropathy Other urethral stricture, female Surgical History (Updated 08/10/20 @ 10:43 by Masha Pereira MD) H/O gastric bypass H/O: hysterectomy History of cholecystectomy History of esophagogastroduodenoscopy (EGD) History of reconstructive repair of rectocele History of total right hip replacement Hx of appendectomy Family History (Updated 07/19/20 @ 11:43 by JIMBO Storm) Father, AT AGE 62 Grandmother Cancer Father PROSTATE CANCER Stroke Grandmother Denies family history of Anesthesia complication Bleeding disorder Social History Smoking and tobacco status: never smoked Second hand smoke exposure: No Smoking risk assessment/counseling performed?: No Alcohol intake: never Adopted: Yes (Grandparents adopted her.) Caregiver/support person: No Lives independently: Yes Household members: none Housing: Apartment Marital status: / Number of children: 2 Number of grandchildren: 4 Highest education level completed: Associate Degree: Occupational, Technical, Vocational Program service: No Current occupational status: disabled Current occupational exposures/hazards: No Pets and animals: Yes Pets & animals: cat(s) History of recent travel: No Leisure activites: reading and other Leisure activities details: puzzles Sexually active: No Current gender identity: Female Ekta/Episcopal: Adventist Special ekta needs: No Agree to transfusion: Yes Financial difficulty paying for basics: Not Very Hard Pertinent Exam Findings alert, oriented x 3, clear to auscultation bilaterally, regular rate & rhythm and procedure specific exam findings (Abdominal examination nontender nondistended soft) CT scan of the abdomen and pelvis November 2020 showed 1. Moderate to large amount of air throughout the colon. No obstruction. No significant constipation or fecal retention. 2. No free air or, free fluid or adenopathy. 3. Mild hepatic steatosis and hepatomegaly. 4. Prior cholecystectomy and appendectomy. 5. Diffuse fatty replacement of the pancreas. Recommendations Surgery/Procedure today (EGD and colonoscopy) Other Plans: Plan of care; After thorough history and physical examination and reviewing the chart and images with my personal interpretation of the CT scan, plan to perform a diagnostic esophagogastroduodenoscopy_(upper endoscopy) and diagnostic colonoscopy with possible biopsy and possible polypectomy. I discussed with the patient in detail the risks,benefits,alternatives and indications.The risk of aspiration, bleeding, soft tissue injury, perforation of the stomach/esophagus/colon and other potential concomitant complications were explained to the patient in details also the potential need for Thoracotomy and or Laproscoy/Laparotomy to repair any related complications including but not limited to colectomy and or Closotomy. The patient understood this well and did agree to proceed. 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
[2021-01-26 11:18] VITALS: BP 137/70; PULSE 75; RESP 18; TEMP 36.3; O2SAT 92
[2021-01-26] MEDS: sodium chloride 0.9% 1,000 ML 30 ML IV (11:32)
--- NOTE | 2021-01-26 12:15 | ANES.PREANE2 ---
Documented by User: Jalen Silverio Jr, INDUSTRIAL ENGINEERING TECHNICIAN 01/26/21 12:19 Pre-Anesthetic Assessment Pre-Anesthetic Assessment: Height/Weight: Height 1.75 m Weight 104.326 kg Temp Pulse Resp BP Pulse Ox 97.3 F L 75 18 137/70 92 01/26/21 11:18 01/26/21 11:18 01/26/21 11:18 01/26/21 11:18 01/26/21 11:18 Preop Diagnosis: Bloating Proposed Procedure: Operation Date: 01/26/21 08:30 Proposed Procedures p EGD [id number] R10.9(Not Applicable) - Zaid Osborne MD s Colonoscopy(Not Applicable) - Zaid Osborne MD Familial anesthetic complications: none Was Beta Nicola taken within 24 hours: N/A Was Clonidine taken within 24 hours: N/A Last intake: Intake Last Liquid Date 01/25/21 Last Liquid Time 18:00 Last Solid Date 01/25/21 Last Solid Time 18:00 Last Intake: 23:00 Social: Social History: No alcohol and No tobacco Exam: Pre-Anes Outpt Exam: alert, oriented x 3, clear to auscultation bilaterally and regular rate & rhythm Airway: Submandibular: WNL Cervical ROM: WNL MP: 2 Dentition: False Pulmonary: Pulmonary: SOB (with exercise) CV/HEM: CV/HEM: HTN : : None reported Hepatic: Hepatic: None reported GI: GI: GERD Metabolic: Metabolic: Morbid obesity and Thyroid Musc/skel: Musc/skel: Lower Back Pain and OA/DJD Neuropsych: Neuropsych: Anxiety, Bipolar, Depression, ZALDIVAR and Seizure (last Sz 1 yr ago grand mal) Anesthetic Plan: ASA status: 3 Anesthesia: MAC Meds/Allergies Current Medications: Current Medications Generic Name Dose Route Start Last Admin Trade Name Freq PRN Reason Stop Dose Admin Sodium Chloride 1,000 mls @ 30 ml s/hr 01/26/21 09:45 01/26/21 11:32 Sodium Chloride 0.9% IV 01/27/21 09:44 30 mls/hr .Q24H BIA Administration PFSH Anesthesia PFSH: Medical History Atypical chest pain Benign essential HTN Cataract History of amputation of great toe of both feet Hx of chest pain Hx of shortness of breath Hypothyroidism Incontinence in female Neuropathy Other urethral stricture, female Surgical History H/O gastric bypass H/O: hysterectomy History of cholecystectomy History of esophagogastroduodenoscopy (EGD) History of reconstructive repair of rectocele History of total right hip replacement Hx of appendectomy Family History Father , AT AGE 62 Cancer PROSTATE CANCER Grandmother Stroke Denies family history of Anesthesia complication Bleeding disorder Social History Smoking and tobacco status: never smoked Second hand smoke exposure: No Smoking risk assessment/counseling performed?: No Alcohol intake: never Adopted: Yes (Grandparents adopted her.) Caregiver/support person: No Lives independently: Yes Household members: none Housing: Apartment Marital status: / Number of children: 2 Number of grandchildren: 4 Highest education level completed: Associate Degree: Occupational, Technical, Vocational Program service: No Current occupational status: disabled Current occupational exposures/hazards: No Pets and animals: Yes Pets & animals: cat(s) History of recent travel: No Leisure activites: reading and other Leisure activities details: puzzles Sexually active: No Current gender identity: Female Ekta/Quaker: Oriental Orthodox Special ekta needs: No Agree to transfusion: Yes Financial difficulty paying for basics: Not Very Hard Female Reproductive History: Para: 2 Spontaneous abortions: No Data Anesthesia Cardiac Studies: No Data to Display Documented by User: Polo Perera 01/26/21 15:11 PFSH Anesthesia PFSH: Medical History Atypical chest pain Benign essential HTN Cataract History of amputation of great toe of both feet Hx of chest pain Hx of shortness of breath Hypothyroidism Incontinence in female Neuropathy Other urethral stricture, female Surgical History H/O gastric bypass H/O: hysterectomy History of cholecystectomy History of esophagogastroduodenoscopy (EGD) History of reconstructive repair of rectocele History of total right hip replacement Hx of appendectomy Family History Father , AT AGE 62 Cancer PROSTATE CANCER Grandmother Stroke Denies family history of Anesthesia complication Bleeding disorder Social History Smoking and tobacco status: never smoked Second hand smoke exposure: No Smoking risk assessment/counseling performed?: No Alcohol intake: never Adopted: Yes (Grandparents adopted her.) Caregiver/support person: No Lives independently: Yes Household members: none Housing: Apartment Marital status: / Number of children: 2 Number of grandchildren: 4 Highest education level completed: Associate Degree: Occupational, Technical, Vocational Program service: No Current occupational status: disabled Current occupational exposures/hazards: No Pets and animals: Yes Pets & animals: cat(s) History of recent travel: No Leisure activites: reading and other Leisure activities details: puzzles Sexually active: No Current gender identity: Female Ekta/Quaker: Oriental Orthodox Special ekta needs: No Agree to transfusion: Yes Financial difficulty paying for basics: Not Very Hard Data Anesthesia Cardiac Studies: No Data to Display
[2021-01-26 12:38] VITALS: BP 102/64; PULSE 69; RESP 18; TEMP 36.2; O2SAT 92
[2021-01-26 13:00] VITALS: BP 114/84; PULSE 70; RESP 18; O2SAT 94
--- NOTE | 2021-01-26 15:10 | ANE.PACU2 ---
Inpatient post-anesthesia follow up: Airway intact: Yes Vital signs: Temperature 97.2 F Pulse Rate 70 Respiratory Rate 18 Blood Pressure 114/84 Pulse Oximetry 94 Oxygen Delivery Me thod Room Air Oxygen Flow Rate 2 Fraction of Inspir ed Oxygen Hydration adequate: Yes Nausea and vomiting: No Pain level: 1 Mental status: Baseline
== END 2021-01-26 13:25 | disposition home or self-care (01) ==
PROVIDERS: PCP Family Medicine; Visit Provider Surgery
PROC: 0DJ08ZZ Inspection of Upper Intestinal Tract, Via Natural or Artificial Opening Endoscopic (ICD-10-PCS; CPT 43235; principal; 2021-01-26 08:30)
PROC: 0DJD8ZZ Inspection of Lower Intestinal Tract, Via Natural or Artificial Opening Endoscopic (ICD-10-PCS; CPT 45378; 2021-01-26 08:30)
DX: R10.9 Unspecified abdominal pain (principal); R14.0 Abdominal distension (gaseous); I10 Essential (primary) hypertension; E03.9 Hypothyroidism, unspecified; Z98.84 Bariatric surgery status; K44.9 Diaphragmatic hernia without obstruction or gangrene; K21.9 Gastro-esophageal reflux disease without esophagitis; E66.01 Morbid (severe) obesity due to excess calories; Z68.34 Body mass index [BMI] 34.0-34.9, adult; M19.90 Unspecified osteoarthritis, unspecified site; F41.9 Anxiety disorder, unspecified; F32.9 Major depressive disorder, single episode, unspecified; Z87.19 Personal history of other diseases of the digestive system
CPT/HCPCS: 43235; 45330; 96360; J2704; J7030

== ENCOUNTER → 2021-04-04 11:32 | Outpatient (BNVA) | payer MEDICARE, MEDICAID, SELFPAY ==
[2021-01-25 16:20] VITALS: BP 104/59; BMI 34.0
== END ==
PROVIDERS: PCP Family Medicine; Visit Provider Psychiatry & Neurology Psychiatry
DX: F41.1 Generalized anxiety disorder (principal); F33.2 Major depressive disorder, recurrent severe without psychotic features; F43.12 Post-traumatic stress disorder, chronic
CPT/HCPCS: 99214

== ENCOUNTER 2021-05-12 13:45 | Emergency (ER) | payer MEDICARE, MEDICAID, SELFPAY ==
[2021-01-25 16:20] VITALS: BP 104/59; BMI 34.0
[2021-05-12] VITALS (7 sets, daily range): BP systolic 100–126; BP diastolic 55–77; PULSE 70–96; RESP 16–19; TEMP 37.3; O2SAT 88–99
--- NOTE | 2021-05-12 14:09 | XR_ITS ---
WS: [id number] Portable AP upright chest, 05/12/2021 Clinical Data: Cough Comparison: Portable chest, 12/18/2020. Findings: There are patchy bilateral lower lobe opacities more in the right left. No nodules, masses or effusions are seen. The heart is slightly enlarged. The aortic arch shows minimal tortuosity. XR/XR chest 1V portable [id number] Impression: 1. Patchy bilateral pulmonary opacities which may represent pneumonia, especial ly on the right. 2. Cardiomegaly and atherosclerosis.
--- NOTE | 2021-05-12 14:10 | ECG_ITS ---
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 Measurements Intervals [place] Rate: 74 P: 11 AR: 170 QRS: 0 QRSD: 106 T: 37 QT: 386 QTc: 429 Interpretive Statements SINUS RHYTHM MODERATE INTRAVENTRICULAR CONDUCTION DELAY [105+ ms QRS DURATION, 80+ ms Q/S IN V1/V2, NO Q AND 60+ ms R IN I/aVL/V5/V6] MODERATE VOLTAGE CRITERIA FOR LVH, CONSIDER NORMAL VARIANT [MEETS CRITERIA IN ONE OF: R(aVL), S(V1), R(V5), R(V5/V6)+S(V1)] NONSPECIFIC ST & T-WAVE ABNORMALITY Compared to ECG 06/24/2020 12:50:09 Intraventricular conduction delay now present Sinus tachycardia no longer present Possible ischemia no longer present T-wave abnormality still present Electronically Signed On 05-13-2021 18:11:10 CDT by Charmaine Vidales M.D. [email or web address]
--- NOTE | 2021-05-12 14:10 | W.ED.FALL ---
HPI - Fall General: Chief Complaint: Fall Stated Complaint: RIB PAIN POST FALL Time Seen by Provider: 05/12/21 14:04 History of Present Illness: HPI Narrative: This patient is a 55-year-old female who presents to the emergency department with complaint of falls x3. Patient states she is been having issues with dizziness for the past couple of days and would get lightheaded when she stands up and follows. Patient complained of left rib pain. Patient denies any syncope. Blood pressure is 105 systolic on traffic monitor specialist at this time. Patient denies any chest pain or shortness of breath. Patient has a long history of chronic pain related to her neuropathy and hammertoe patient takes 75 mg of methadone as prescribed per patient patient also takes gabapentin. Patient has had previous surgery of a Vance-en-Y gastric bypass surgery. We will do medical evaluation treat as needed complaint: fall Onset (ago): day(s) Fall from: standing Fall witnessed: no Place fall occurred: home Loss of consciousness: None Associated symptoms-after fall: Denies abdominal pain, chest pain, headache(s), lightheadedness or neck pain Review of Systems General: Reports: 10 or more systems reviewed and unremarkable except in HPI and below Const: Denies: fever(s), chills, body aches or fatigue Eyes: Denies: change in vision or blurry vision ENMT: Denies: throat pain, hoarseness or mouth pain Card: Denies: chest pain, palpitations, irregular heart rhythm, edema, swelling of feet/ankles or lightheadedness Resp: Denies: dyspnea, productive cough, non-productive cough, wheezing or pain on inspiration GI: Denies: abdominal pain, nausea or vomiting : Denies: flank pain, difficulty voiding, dysuria, urinary frequency, urinary urgency or urinary hesitancy Musc: Denies: neck pain, back pain, extremity pain, extremity swelling, joint pain, joint swelling, joint redness, joint warmth or limited range of motion Skin/Breast: Denies: rash, pruritus, erythema or skin tenderness Neuro: Reports: dizziness; Denies: headache(s), numbness in extremities or weakness in extremities Psych: Denies: anxiety or depression PFSH ED PFSH: Medical History Atypical chest pain Benign essential HTN Cataract History of amputation of great toe of both feet Hx of chest pain Hx of shortness of breath Hypothyroidism Incontinence in female Neuropathy Other urethral stricture, female Surgical History H/O gastric bypass H/O: hysterectomy History of cholecystectomy History of esophagogastroduodenoscopy (EGD) History of reconstructive repair of rectocele History of total right hip replacement Hx of appendectomy Family History Father , AT AGE 62 Cancer PROSTATE CANCER Grandmother Stroke Denies family history of Anesthesia complication Bleeding disorder Social History Smoking and tobacco status: never smoked Second hand smoke exposure: No Smoking risk assessment/counseling performed?: No Alcohol intake: never Adopted: Yes (Grandparents adopted her.) Caregiver/support person: No Lives independently: Yes Household members: none Housing: Apartment Marital status: / Number of children: 2 Number of grandchildren: 4 Highest education level completed: Associate Degree: Occupational, Technical, Vocational Program service: No Current occupational status: disabled Current occupational exposures/hazards: No Pets and animals: Yes Pets & animals: cat(s) History of recent travel: No Leisure activites: reading and other Leisure activities details: puzzles Sexually active: No Current gender identity: Female Ekta/Sikh: Alevism Special ekta needs: No Agree to transfusion: Yes Financial difficulty paying for basics: Not Very Hard Female Reproductive History: Para: 2 Spontaneous abortions: No Physical Exam Const: COMMON NORMALS: no acute distress, average body habitus, patient oriented x3, no limitations, healthy appearing, alert and well nourished HENMT: COMMON NORMALS: normocephalic, atraumatic, hearing grossly normal bilaterally, external ears normal, EAC's normal, TM's normal bilaterally, Normal external nose present, Normal nasal mucous membranes and turbinates present, moist oral mucous membranes, oropharynx normal, dentition normal and gingiva normal HEAD & SCALP: normocephalic and atraumatic NOSE: Normal external nose present and Normal nasal mucous membranes and turbinates present EXTERNAL EAR: Yes external ears normal EXTERNAL AUDITORY CANAL: EAC's normal TYMPANIC MEMBRANE: TM's normal bilaterally Neck/C-Spine: COMMON NORMALS: full ROM, no lymphadenopathy, supple, no meningeal signs, no JVD, Thyroid normal and No carotid bruits THYROID: Thyroid normal Chest: COMMONS NORMALS: normal inspection of the chest, normal palpation of entire chest wall, normal inspection of the breasts and normal palpation of the breasts Breast/axilla inspection: Yes normal inspection of the breasts BREAST/AXILLA PALPATION: Yes normal palpation of the breasts Resp: COMMON NORMALS: normal respiratory effort, No retractions, No use of accessory muscles, clear to auscultation bilaterally and percussion normal AUSCULTATION: clear to auscultation bilaterally PERCUSSION: percussion normal Cardio: COMMON NORMALS: no JVD, regular rate, regular rhythm, S1 normal heart sound present, S2 normal heart sound present, No gallops present (Cardio), No clicks present (Cardio), No murmurs present (Cardio), No rub (Cardio) and Peripheral pulses 2+ throughout RATE: regular rate RHYTHM: regular rhythm HEART SOUNDS: S1 normal heart sound present and S2 normal heart sound present PERIPHERAL PULSES: Peripheral pulses 2+ throughout GI: COMMON NORMALS: Normal to inspection, nondistended, normoactive bowel sounds present, Soft to palpation, non-tender, No hepatosplenomegaly present, no masses and no bruits PALPATION: Yes Soft to palpation and Yes No hepatosplenomegaly present Back/Pelvis: COMMON NORMALS: thoracic and lumbar spine normal to inspection, no thoracic nor lumbar tenderness, thoraco-lumbar ROM normal and straight leg raise negative bilaterally Extremity: COMMON NORMALS: normal to inspection, full ROM, capillary refill normal, no joint enlargement, no clubbing, cyanosis or edema, no calf tenderness and no pedal edema Neuro: COMMON NORMALS: patient oriented x3 SENSORIUM/ORIENTATION: Yes alert MENINGEAL SIGNS: Yes no meningeal signs Course Reevaluation(s): Reevaluation #1: Patient's O2 sats monitoring will jump anywhere from 94 to the mid 80s. Appears to be more related to patient's poor peripheral vascular circulation. Patient is already lost 2 toes on each foot due to poor circulation. Patient does not appear to be acutely short of breath. Patient is Covid evaluation did come back positive. We will have RT ambulate the patient to see if she needs any home oxygen requirements otherwise her evaluation in the emergency department been negative for any acute findings. We will continue to monitor and patient evaluate and treat further as needed Time: 18:34 Vital Signs: Vital signs: Vital Signs Temperature 99.1 F 05/12/21 13:52 Pulse Rate 80 05/12/21 17:22 Respiratory Rate 16 05/12/21 17:00 Blood Pressure 100/66 05/12/21 17:22 Pulse Oximetry 94 05/12/21 17:00 MDM - Fall MDM Narrative: Medical decision making narrative: Patient's O2 sats monitoring will jump anywhere from 94 to the mid 80s. Appears to be more related to patient's poor peripheral vascular circulation. Patient is already lost 2 toes on each foot due to poor circulation. Patient does not appear to be acutely short of breath. Patient is Covid evaluation did come back positive. We will have RT ambulate the patient to see if she needs any home oxygen requirements otherwise her evaluation in the emergency department been negative for any acute findings. We will continue to monitor and patient evaluate and treat further as needed Lab Data: Labs: Lab Results 05/12/21 05/12/21 05/12/21 Range/Units 16:35 16:35 16:35 WBC 4.2 (4.0-10.0) 10^3/ uL RBC 3.94 L (4.1-5.3) 10^6/u L Hgb 9.1 L (11.5-15.3) g/dL Hct 30.9 L (37.0-47.0) % MCV 78.4 L (81-99) fl MCH 23.1 L (28.0-34.0) pg MCHC 29.4 L (30.0-36.0) g/dL RDW 16.8 H (12.1-15.1) % Plt Count 168 (130-400) 10^3/c mm MPV 9.3 (7.4-10.4) fL Neut % (Auto) 75.0 % Lymph % (Auto) 18.4 % [place] % (Auto) 5.9 % Eos % (Auto) 0.0 % Baso % (Auto) 0.2 % Neut # (Auto) 3.18 (1.8-7.7) 10^3/u L Lymph # (Auto) 0.8 (0.8-4.8) 10^3/u L [place] # (Auto) 0.3 (0.2-0.9) 10^3/u L Eos # (Auto) 0.0 (0.0-0.8) 10^3/u L Baso # (Auto) 0.0 (0.0-0.1) 10^3/u L Nucleated RBC % (a uto) 0 % Nucleated RBCs # 0.0 /100WBC PT 13.00 (12.1-14.9) SECO NDS INR 0.96 (0.8-1.2) APTT 27.3 (23.9-36.7) SECO NDS Sodium 129 L (136-145) mmol/L Potassium 3.8 (3.5-5.1) mmol/L Chloride 89 L (98-107) mmol/L Carbon Dioxide 28 (22-29) mmol/L Anion Gap 15.8 (5-19) BUN 11 (6-20) mg/dL Creatinine 0.6 (0.5-0.9) mg/dL GFR Calculation 103.0 (90-130) mL/min Glucose 99 (65-115) mg/dL Calculated Osmolal ity 267 L (285-295) mOsm/k g Calcium 8.6 (8.5-10.5) mg/dL Total Bilirubin 0.3 (0.15-1.2) mg/dL AST 68 H (0-32) U/L ALT 35 H (0-33) U/L Alkaline Phosphata se 115 H (35-105) IU/L Troponin T Gen 5 n g/L (0-10) ng/L Total Protein 7.9 (6.6-8.7) g/dL Albumin 4.0 (3.5-5.2) g/dL Globulin 3.9 (1.3-4.6) g/dL Urine Color (Yellow) Urine Appearance (CLEAR) Urine pH (5-7) Ur Specific Gravit y (1.005-1.030) Urine Protein (Negative) Urine Glucose (UA) (Normal) Urine Ketones (Negative) Urine Blood (Negative) Urine Nitrate (Negative) Urine Bilirubin (Negative) Urine Urobilinogen (Negative) mg/dL Ur Leukocyte Iva ase (Negative) Urine Opiates Scre en (Negative) ng/mL Ur Barbiturates Sc reen (Negative) ng/mL Ur Phencyclidine S crn (Negative) ng/mL Ur Amphetamines Sc reen (Negative) ng/mL U Benzodiazepines Scrn (Negative) ng/mL Urine Cocaine Scre en (Negative) ng/mL U Marijuana (THC) Screen (Negative) ng/mL SARS-CoV-2 Ag (Rap id) (Negative) 05/12/21 05/12/21 05/12/21 Range/Units 16:35 17:03 17:55 WBC (4.0-10.0) 10^3/ uL RBC (4.1-5.3) 10^6/u L Hgb (11.5-15.3) g/dL Hct (37.0-47.0) % MCV (81-99) fl MCH (28.0-34.0) pg MCHC (30.0-36.0) g/dL RDW (12.1-15.1) % Plt Count (130-400) 10^3/c mm MPV (7.4-10.4) fL Neut % (Auto) % Lymph % (Auto) % [place] % (Auto) % Eos % (Auto) % Baso % (Auto) % Neut # (Auto) (1.8-7.7) 10^3/u L Lymph # (Auto) (0.8-4.8) 10^3/u L [place] # (Auto) (0.2-0.9) 10^3/u L Eos # (Auto) (0.0-0.8) 10^3/u L Baso # (Auto) (0.0-0.1) 10^3/u L Nucleated RBC % (a uto) % Nucleated RBCs # /100WBC PT (12.1-14.9) SECO NDS INR (0.8-1.2) APTT (23.9-36.7) SECO NDS Sodium (136-145) mmol/L Potassium (3.5-5.1) mmol/L Chloride (98-107) mmol/L Carbon Dioxide (22-29) mmol/L Anion Gap (5-19) BUN (6-20) mg/dL Creatinine (0.5-0.9) mg/dL GFR Calculation (90-130) mL/min Glucose (65-115) mg/dL Calculated Osmolal ity (285-295) mOsm/k g Calcium (8.5-10.5) mg/dL Total Bilirubin (0.15-1.2) mg/dL AST (0-32) U/L ALT (0-33) U/L Alkaline Phosphata se (35-105) IU/L Troponin T Gen 5 n g/L 14 H (0-10) ng/L Total Protein (6.6-8.7) g/dL Albumin (3.5-5.2) g/dL Globulin (1.3-4.6) g/dL Urine Color Yellow (Yellow) Urine Appearance Clear (CLEAR) Urine pH 5 (5-7) Ur Specific Gravit y 1.020 (1.005-1.030) Urine Protein Trace (Negative) Urine Glucose (UA) Norm (Normal) Urine Ketones 1+ H (Negative) Urine Blood Neg (Negative) Urine Nitrate Negative (Negative) Urine Bilirubin 1+ H (Negative) Urine Urobilinogen 1 H (Negative) mg/dL Ur Leukocyte Iva ase Negative (Negative) Urine Opiates Scre en (Negative) ng/mL Ur Barbiturates Sc reen (Negative) ng/mL Ur Phencyclidine S crn (Negative) ng/mL Ur Amphetamines Sc reen (Negative) ng/mL U Benzodiazepines Scrn (Negative) ng/mL Urine Cocaine Scre en (Negative) ng/mL U Marijuana (THC) Screen (Negative) ng/mL SARS-CoV-2 Ag (Rap id) Positive H (Negative) 05/12/21 Range/Units 17:55 WBC (4.0-10.0) 10^3/ uL RBC (4.1-5.3) 10^6/u L Hgb (11.5-15.3) g/dL Hct (37.0-47.0) % MCV (81-99) fl MCH (28.0-34.0) pg MCHC (30.0-36.0) g/dL RDW (12.1-15.1) % Plt Count (130-400) 10^3/c mm MPV (7.4-10.4) fL Neut % (Auto) % Lymph % (Auto) % [place] % (Auto) % Eos % (Auto) % Baso % (Auto) % Neut # (Auto) (1.8-7.7) 10^3/u L Lymph # (Auto) (0.8-4.8) 10^3/u L [place] # (Auto) (0.2-0.9) 10^3/u L Eos # (Auto) (0.0-0.8) 10^3/u L Baso # (Auto) (0.0-0.1) 10^3/u L Nucleated RBC % (a uto) % Nucleated RBCs # /100WBC PT (12.1-14.9) SECO NDS INR (0.8-1.2) APTT (23.9-36.7) SECO NDS Sodium (136-145) mmol/L Potassium (3.5-5.1) mmol/L Chloride (98-107) mmol/L Carbon Dioxide (22-29) mmol/L Anion Gap (5-19) BUN (6-20) mg/dL Creatinine (0.5-0.9) mg/dL GFR Calculation (90-130) mL/min Glucose (65-115) mg/dL Calculated Osmolal ity (285-295) mOsm/k g Calcium (8.5-10.5) mg/dL Total Bilirubin (0.15-1.2) mg/dL AST (0-32) U/L ALT (0-33) U/L Alkaline Phosphata se (35-105) IU/L Troponin T Gen 5 n g/L (0-10) ng/L Total Protein (6.6-8.7) g/dL Albumin (3.5-5.2) g/dL Globulin (1.3-4.6) g/dL Urine Color (Yellow) Urine Appearance (CLEAR) Urine pH (5-7) Ur Specific Gravit y (1.005-1.030) Urine Protein (Negative) Urine Glucose (UA) (Normal) Urine Ketones (Negative) Urine Blood (Negative) Urine Nitrate (Negative) Urine Bilirubin (Negative) Urine Urobilinogen (Negative) mg/dL Ur Leukocyte Iva ase (Negative) Urine Opiates Scre en Negative (Negative) ng/mL Ur Barbiturates Sc reen Negative (Negative) ng/mL Ur Phencyclidine S crn Negative (Negative) ng/mL Ur Amphetamines Sc reen Negative (Negative) ng/mL U Benzodiazepines Scrn Negative (Negative) ng/mL Urine Cocaine Scre en Negative (Negative) ng/mL U Marijuana (THC) Screen Negative (Negative) ng/mL SARS-CoV-2 Ag (Rap id) (Negative) Imaging Data^: CXR: Attestation: I personally reviewed and interpreted this imaging study as follows: Radiologist's impression: Impression: 1. Patchy bilateral pulmonary opacities which may represent pneumonia, especially on the right. 2. Cardiomegaly and atherosclerosis. EKG Data^: EKG 1: Attestation: I personally reviewed and interpreted this EKG as follows: EKG interpretation date: 05/12/21 EKG interpretation time: 14:36 Prior EKG tracings: available for review Interpretation: Sinus rhythm with moderate interventricular conduction delay nonspecific ST changes heart rate 74 Discharge Plan Discharge Patient Disposition: Home Clinical Impression: COVID-19, Fall Condition: Stable Prescriptions: No Action gabapentin 600 mg tablet 1,200 mg PO TID RF: 0 oxybutynin chloride 5 mg tablet 5 mg PO BID RF: 0 clonazepam 1 mg tablet 1 mg PO BID PRN (Reason: Anxiety) RF: 0 ibuprofen [Advil] 200 mg Tablet 400 mg PO Q6H PRN (Reason: Pain) RF: 0 omeprazole 20 mg Capsule,Delayed Release(Dr/Ec) 20 mg PO BID RF: 0 methadone 10 mg Tablet 75 mg PO BID RF: 0 levothyroxine 75 mcg tablet 75 mcg PO QAM RF: 0 citalopram 20 mg tablet 20 mg PO BEDTIME RF: 0 losartan 25 mg tablet 25 mg PO QAM RF: 0 levofloxacin 500 mg tablet 500 mg PO QAM RF: 0 ProAir HFA 90 mcg/actuation Hfa Aerosol Inhaler 2 puff INHALATION QID PRN (Reason: Shortness Of Breath) RF: 0 amitriptyline 100 mg tablet 200 mg PO BEDTIME RF: 0 lactulose 10 gram/15 mL solution 10 g PO TID PRN (Reason: Constipation) RF: 0 Discharge Orders: Discharge ED (Routine); Ordered 05/12/21 Ordered By: Filiberto Nickerson Other Ambulatory Orders: DME: Oxygen (Order) Location: None Selected Ordered By: Filiberto Nickerson Referrals: Yaya Myles MD [Primary Care Provider] - Discharge Diet: Advance as tolerated Discharge Activity: Resume usual activity Patient Instructions: Opioid Safety Activity Restrictions/Additional Instructions: Continue all home medications. Use oxygen as instructed. Follow-up with primary care physician in a 5 to 7 days. Return to the emergency department symptoms fail to improve or worsen. Coding Level of Care Code ED Press Operator Assistant for Barbra Fwmichael Exam Comprehensive
[2021-05-12] MEDS: sodium chloride 0.9% 1,000 ML 999 ML IV (14:31)
--- NOTE | 2021-05-12 15:19 | PC.PHAR ---
PT STATES SHE TAKES CARE OF HER OWN MEDICATIONS-PT STATES SHE GETS METHADONE 75MG BID FROM [facility]-CALLED [facility] [phone] TO VERIFY DOSE THEY ARE CLOSED-PT STATES SHE TOOK NO MEDS TODAY
[2021-05-12 16:44] LABS: Basophils % 0.2 %; Hematocrit 30.9 % (37.0-47.0); Hemoglobin 9.1 g/dL (11.5-15.3); Lymphocytes # 0.8 10^3/uL (0.8-4.8); Lymphocytes % 18.4 %; Mean Corpuscular HGB Conc 29.4 g/dL (30.0-36.0); Mean Corpuscular Hemoglobin 23.1 pg (28.0-34.0); Mean Corpuscular Volume 78.4 fl (81-99); Mean Platelet Volume 9.3 fL (7.4-10.4); Monocytes # 0.3 10^3/uL (0.2-0.9); Monocytes % 5.9 %; Neutrophils # 3.18 10^3/uL (1.8-7.7); Nucleated Red Blood Cells % 0 %; Platelet Count 168 10^3/cmm (130-400); Red Blood Count 3.94 10^6/uL (4.1-5.3); Red Cell Distribution Width 16.8 % (12.1-15.1); White Blood Count 4.2 10^3/uL (4.0-10.0)
[2021-05-12 17:19] LABS: INR 0.96 (0.8-1.2)
[2021-05-12 17:20] LABS: Partial Thromboplastin Time 27.3 SECONDS (23.9-36.7)
[2021-05-12 17:27] LABS: Alanine Aminotransferase 35 U/L (0-33); Alkaline Phosphatase 115 IU/L (35-105); Anion Gap 15.8 (5-19); Aspartate Amino Transferase 68 U/L (0-32); Blood Urea Nitrogen 11 mg/dL (6-20); Calcium 8.6 mg/dL (8.5-10.5); Carbon Dioxide 28 mmol/L (22-29); Chloride 89 mmol/L (98-107); Creatinine Clr Calc Pharmacy 127.9797; Globulin 3.9 g/dL (1.3-4.6); Glucose 99 mg/dL (65-115); Osmolality Calculated 267 mOsm/kg (285-295); Potassium 3.8 mmol/L (3.5-5.1); Sodium 129 mmol/L (136-145); Total Bilirubin 0.3 mg/dL (0.15-1.2); Total Protein 7.9 g/dL (6.6-8.7)
[2021-05-12 17:52] LABS: Troponin T (5th) Once 14 ng/L (0-10)
[2021-05-12 17:56] LABS: Add Urine Microscopic? NO; Charge for UA Resulting for Rev
[2021-05-12 17:59] LABS: Bilirubin Urine 1+ (Negative); Blood Urine Neg (Negative); Glucose Urine UA Norm (Normal); Ketones Urine 1+ (Negative); Leukocyte Esterase Urine Negative (Negative); Nitrate Urine Negative (Negative); Protein Urine Trace (Negative); Urine Appearance Clear (CLEAR); Urine Color Yellow (Yellow); Urobilinogen Urine 1 mg/dL (Negative); pH Urine 5 (5-7)
[2021-05-12 18:24] LABS: Amphetamines Screen Urine Negative (Negative); Barbiturates Screen Urine Negative (Negative); Benzodiazepines Screen Urine Negative (Negative); Cocaine Screen Urine Negative (Negative); Opiate Screen Urine Negative (Negative); PCP Screen Urine Negative (Negative); THC Screen Urine Negative (Negative)
[2021-05-12 18:26] LABS: SARS Covid-2 Antigen Positive (Negative)
[2021-05-12] MEDS: ondansetron 2 mg/ML SDV 2 mL 4 MG IVP (19:29)
[2021-05-12] MEDS: dexamethasone 10 mg/mL INJ IV (19:29)
--- NOTE | 2021-05-12 19:29 | PC.NURSE ---
pt roomair o2 87% pt placed on 2 l nc and spo2 99%
--- NOTE | 2021-05-13 09:49 | DCPLANNER ---
outside sales account manager was asked to pre certify oxygen for patient. outside sales account manager called the medicaid pre cert line, provided required information. Patients oxygen was pre certified. outside sales account manager called HOME and let them know that the pre certification was in.
== END 2021-05-12 22:27 | disposition home or self-care (01) ==
PROVIDERS: Emergency Provider Emergency Medicine; PCP Family Medicine
DX: U07.1 COVID-19 (principal); I10 Essential (primary) hypertension; W19.XXXA Unspecified fall, initial encounter
CPT/HCPCS: 71045; 80053; 80306; 81003; 84484; 85025; 85610; 85730; 87426; 93005; 96361; 96374; 96375; 99284; J1100; J2405; J7030

== ENCOUNTER 2021-05-14 19:48 | Inpatient (IN) | payer MEDICARE, MEDICAID, SELFPAY ==
[2021-01-25 16:20] VITALS: BP 104/59; BMI 34.0
[2021-05-14] VITALS (10 sets, daily range): BP systolic 93–107; BP diastolic 46–58; PULSE 60–89; RESP 13–20; TEMP 36.5–36.6; O2SAT 86–97; BMI 29.5
--- NOTE | 2021-05-14 20:07 | XRR_ITS ---
PROCEDURE INFORMATION: Exam: XR Chest Exam date and time: 05/14/2021 8:07 PM Age: 55 years old Clinical indication: Dyspnea; Additional info: SOB TECHNIQUE: Imaging protocol: XR of the chest. Views: 1 view. COMPARISON: CR XR chest 1V portable [id number] 05/12/2021 2:31 PM FINDINGS: Lungs: There is moderate patchy ill-defined opacity in the lower lungs bilaterally, increased on the left compared to 05/12/2021. There are shifting opacities in the right lung with decreased opacity in the lower lung and increased opacity in the upper lung since 05/12/2021. Pleural spaces: There is no pleural effusion or pneumothorax. Heart/Mediastinum: Cardiomediastinal contours are unremarkable. Bones/joints: Bones are unremarkable. XR/XR chest 1V portable [id number] IMPRESSION: Bilateral pulmonary consolidation, increased overall since 05/12/2021. Possible infection.
--- NOTE | 2021-05-14 20:16 | W.ED.COVID ---
HPI - COVID General: Chief Complaint: COVID symptoms Stated Complaint: SOB/COVID + Time Seen by Provider: 05/14/21 19:55 Triage information: Has fever, cough or shortness of breath. Exposure to COVID + person last 14 days History of Present Illness: HPI Narrative: 55-year-old female tested positive for Covid 19 2 days ago. She was sent home on home oxygen. She reports worsening shortness of breath and generalized aches, fevers, and generalized weakness. At home her pulse ox was reading 76% on her home oxygen. She is weak and lethargic. complaint: known COVID positive Prior covid testing: yes, results known COVID 19 common symptoms: positive fever(s), chills, cough, non-productive cough, dyspnea, fatigue, headache(s), nausea and diarrhea COVID 19 other sytmptoms: positive pleuritic pain, requiring oxygen, respiratory distress, cyanosis and lethargy; negative chest pain Onset (ago): day(s) COVID Results: SARS-CoV-2 Antigen (Rapid) Positive (Negative) H 05/12/21 17:03 05/12/21 SARS-CoV-2 RNA (RT-PCR) Not detected (NOT DETECTED) 01/21/21 09:38 01/21/21 Nasal/Oral Coronavirus 2019 PCR Not detected 12/19/20 01:15 12/19/20 Review of Systems Const: Reports: fever(s), chills and fatigue Card: Denies: chest pain or palpitations Resp: Reports: dyspnea and non-productive cough GI: Reports: abdominal pain, nausea and diarrhea Neuro: Reports: headache(s) PFS ED PFSH: Medical History Atypical chest pain Benign essential HTN Cataract History of amputation of great toe of both feet Hx of chest pain Hx of shortness of breath Hypothyroidism Incontinence in female Neuropathy Other urethral stricture, female Surgical History H/O gastric bypass H/O: hysterectomy History of cholecystectomy History of esophagogastroduodenoscopy (EGD) History of reconstructive repair of rectocele History of total right hip replacement Hx of appendectomy Family History Father , AT AGE 62 Cancer PROSTATE CANCER Grandmother Stroke Denies family history of Anesthesia complication Bleeding disorder Social History Smoking and tobacco status: never smoked Second hand smoke exposure: No Smoking risk assessment/counseling performed?: No Alcohol intake: never Adopted: Yes (Grandparents adopted her.) Caregiver/support person: No Lives independently: Yes Household members: none Housing: Apartment Marital status: / Number of children: 2 Number of grandchildren: 4 Highest education level completed: Associate Degree: Occupational, Technical, Vocational Program service: No Current occupational status: disabled Current occupational exposures/hazards: No Pets and animals: Yes Pets & animals: cat(s) History of recent travel: No Leisure activites: reading and other Leisure activities details: puzzles Sexually active: No Current gender identity: Female Ekta/Gnosticist: Amish Special ekta needs: No Agree to transfusion: Yes Financial difficulty paying for basics: Not Very Hard Female Reproductive History: Para: 2 Spontaneous abortions: No Physical Exam Const: GENERAL APPEARANCE: lethargic and ill appearing ORIENTATION/CONSCIOUSNESS: Yes oriented to person, Yes oriented to place, Yes oriented to time and Yes lethargic HENMT: COMMON NORMALS: normocephalic HEAD & SCALP: normocephalic Chest: COMMONS NORMALS: normal inspection of the chest Resp: COMMON NORMALS: clear to auscultation bilaterally EFFORT & INSPECTION: Yes tachypneic, Yes respiratory distress and Yes decreased respiratory effort AUSCULTATION: clear to auscultation bilaterally Cardio: COMMON NORMALS: regular rate and regular rhythm RATE: regular rate RHYTHM: regular rhythm GI: COMMON NORMALS: Normal to inspection, nondistended, normoactive bowel sounds present Neuro: SENSORIUM/ORIENTATION: Yes oriented to person, Yes oriented to place, Yes oriented to time and Yes lethargic Course Consultations: Consultation #1: en Vital Signs: Vital signs: Vital Signs Temperature 97.7 F 05/15/21 01:52 Pulse Rate 61 05/15/21 03:41 Respiratory Rate 19 H 05/15/21 03:41 Blood Pressure 95/49 05/15/21 01:52 Pulse Oximetry 94 05/15/21 03:41 MDM - COVID MDM Narrative: Medical decision making narrative: 55-year-old female presents in respiratory distress with lethargy. She is significantly hypoxic. She initially required 12 L nonrebreather to be above 90%. She was placed on heated high flow nasal cannula, but her oxygenation did not tolerate that, only making it to the high 80s. She was placed on BiPAP with significant improvement. Her hemoglobin is 9. Her platelet counts 124. Her chest x-ray shows significant bilateral pneumonitis suggestive of COVID-19, which she is a known positive. She is given IV dexamethasone and remdesivir. She will be admitted to the Covid unit. Lab Data: Labs: Lab Results 05/14/21 05/14/21 05/14/21 Range/Units 20:03 20:03 20:03 WBC 5.9 (4.0-10.0) 10^3/ uL RBC 3.82 L (4.1-5.3) 10^6/u L Hgb 8.9 L (11.5-15.3) g/dL Hct 29.7 L (37.0-47.0) % MCV 77.7 L (81-99) fl MCH 23.3 L (28.0-34.0) pg MCHC 30.0 (30.0-36.0) g/dL RDW 17.6 H (12.1-15.1) % Plt Count 160 (130-400) 10^3/c mm MPV 9.5 (7.4-10.4) fL Neut % (Auto) 64.8 % Lymph % (Auto) 30.7 % Sumner % (Auto) 4.3 % Eos % (Auto) 0.0 % Baso % (Auto) 0.0 % Neut # (Auto) 3.80 (1.8-7.7) 10^3/u L Lymph # (Auto) 1.8 (0.8-4.8) 10^3/u L Sumner # (Auto) 0.3 (0.2-0.9) 10^3/u L Eos # (Auto) 0.0 (0.0-0.8) 10^3/u L Baso # (Auto) 0.0 (0.0-0.1) 10^3/u L Nucleated RBC % (a uto) 0 % Nucleated RBCs # 0.0 /100WBC D-Dimer 1.03 H (0-0.59) ug/mIFE U Specimen Type Sample Site ABG pH (7.35-7.45) ABG pCO2 (35-45) mmHg ABG pO2 (80.0-100.0) mmH g ABG HCO3 (22-26) mmol/L ABG Base Excess (-2.0-2.0) mmol/ L Rohit Test Hematocrit (37-47) % Hgb O2 Saturation (95-100) % Carboxyhemoglobin (0.4-20.1) %THgb Methemoglobin (0.4-1.5) % Total Hemoglobin (12-16) g/dL O2 Delivery Device O2 Liters/Min % FiO2 % Lean Manufacturing Leader ID Sodium 132 L (136-145) mmol/L Potassium 3.6 (3.5-5.1) mmol/L Chloride 94 L (98-107) mmol/L Carbon Dioxide 27 (22-29) mmol/L Anion Gap 14.6 (5-19) BUN 15 (6-20) mg/dL Creatinine 0.8 (0.5-0.9) mg/dL GFR Calculation 73.9 L (90-130) mL/min Glucose 124 H (65-115) mg/dL Calculated Osmolal ity 276 L (285-295) mOsm/k g Lactic Acid (0.5-2.2) mmol/L Calcium 7.9 L (8.5-10.5) mg/dL Total Bilirubin 0.4 (0.15-1.2) mg/dL AST 61 H (0-32) U/L ALT 28 (0-33) U/L Alkaline Phosphata se 82 (35-105) IU/L C-Reactive Protein 38.9 H (0.0-4.9) mg/L NT-Pro-B Natriuret Pep 94 (0-125) pg/mL Total Protein 7.1 (6.6-8.7) g/dL Albumin 3.5 (3.5-5.2) g/dL Globulin 3.6 (1.3-4.6) g/dL Procalcitonin 0.10 (0-0.5) ng/mL 05/14/21 05/14/21 Range/Units 20:03 20:23 WBC (4.0-10.0) 10^3/ uL RBC (4.1-5.3) 10^6/u L Hgb (11.5-15.3) g/dL Hct (37.0-47.0) % MCV (81-99) fl MCH (28.0-34.0) pg MCHC (30.0-36.0) g/dL RDW (12.1-15.1) % Plt Count (130-400) 10^3/c mm MPV (7.4-10.4) fL Neut % (Auto) % Lymph % (Auto) % Sumner % (Auto) % Eos % (Auto) % Baso % (Auto) % Neut # (Auto) (1.8-7.7) 10^3/u L Lymph # (Auto) (0.8-4.8) 10^3/u L Sumner # (Auto) (0.2-0.9) 10^3/u L Eos # (Auto) (0.0-0.8) 10^3/u L Baso # (Auto) (0.0-0.1) 10^3/u L Nucleated RBC % (a uto) % Nucleated RBCs # /100WBC D-Dimer (0-0.59) ug/mIFE U Specimen Type Arterial Sample Site Radial, left ABG pH 7.37 (7.35-7.45) ABG pCO2 48.9 H (35-45) mmHg ABG pO2 62.8 L (80.0-100.0) mmH g ABG HCO3 28.4 H (22-26) mmol/L ABG Base Excess 2.6 H (-2.0-2.0) mmol/ L Rohit Test Pos Hematocrit 27.3 L (37-47) % Hgb O2 Saturation 90.1 L (95-100) % Carboxyhemoglobin 1.5 (0.4-20.1) %THgb Methemoglobin 0.7 (0.4-1.5) % Total Hemoglobin 8.9 L (12-16) g/dL O2 Delivery Device Nrb O2 Liters/Min 15.0 % FiO2 100.0 % Lean Manufacturing Leader ID Harkr Sodium (136-145) mmol/L Potassium (3.5-5.1) mmol/L Chloride (98-107) mmol/L Carbon Dioxide (22-29) mmol/L Anion Gap (5-19) BUN (6-20) mg/dL Creatinine (0.5-0.9) mg/dL GFR Calculation (90-130) mL/min Glucose (65-115) mg/dL Calculated Osmolal ity (285-295) mOsm/k g Lactic Acid 1.8 (0.5-2.2) mmol/L Calcium (8.5-10.5) mg/dL Total Bilirubin (0.15-1.2) mg/dL AST (0-32) U/L ALT (0-33) U/L Alkaline Phosphata se (35-105) IU/L C-Reactive Protein (0.0-4.9) mg/L NT-Pro-B Natriuret Pep (0-125) pg/mL Total Protein (6.6-8.7) g/dL Albumin (3.5-5.2) g/dL Globulin (1.3-4.6) g/dL Procalcitonin (0-0.5) ng/mL COVID Results: SARS-CoV-2 Antigen (Rapid) Positive (Negative) H 05/12/21 17:03 05/12/21 SARS-CoV-2 RNA (RT-PCR) Not detected (NOT DETECTED) 01/21/21 09:38 01/21/21 Nasal/Oral Coronavirus 2019 PCR Not detected 12/19/20 01:15 12/19/20 Discharge Plan Discharge Patient Disposition: Admitted As Inpatient Admit Provider: Winter Monterroso Clinical Impression: COVID-19 Respiratory failure Qualifiers: Chronicity: acute Respiratory failure complication: hypoxia Qualified Code(s): J96.01 - Acute respiratory failure with hypoxia Condition: Serious Coding Level of Care Code ED Openstack Developer for [facility] Fwd Exam Detailed
[2021-05-14 20:20] LABS: Hematocrit 29.7 % (37.0-47.0); Hemoglobin 8.9 g/dL (11.5-15.3); Lymphocytes # 1.8 10^3/uL (0.8-4.8); Lymphocytes % 30.7 %; Mean Corpuscular Hemoglobin 23.3 pg (28.0-34.0); Mean Corpuscular Volume 77.7 fl (81-99); Mean Platelet Volume 9.5 fL (7.4-10.4); Monocytes # 0.3 10^3/uL (0.2-0.9); Monocytes % 4.3 %; Neutrophils % 64.8 %; Nucleated Red Blood Cells % 0 %; Platelet Count 160 10^3/cmm (130-400); Red Blood Count 3.82 10^6/uL (4.1-5.3); Red Cell Distribution Width 17.6 % (12.1-15.1); White Blood Count 5.9 10^3/uL (4.0-10.0)
[2021-05-14 20:34] LABS: ABG PCO2 48.9 mmHg (35-45); ABG PH Result 7.37 (7.35-7.45); Arterial Blood Gas Hematocrit 27.3 % (37-47); Base Excess ABG 2.6 mmol/L (-2.0-2.0); Blood Gas Allen Test Pos; Blood Gas Operator Identificat HARKR; Blood Gas Sample Site Radial, left; Blood Gas Sample Type Arterial; Carboxyhemoglobin 1.5 %THgb (0.4-20.1); HCO3 ABG 28.4 mmol/L (22-26); HGB O2 Sat 90.1 % (95-100); Methemoglobin 0.7 % (0.4-1.5); Oxygen Device NRB; PO2 ABG 62.8 mmHg (80.0-100.0); Total Hemoglobin 8.9 g/dL (12-16)
[2021-05-14 20:45] LABS: D Dimer 1.03 ug/mIFEU (0-0.59)
[2021-05-14 20:50] LABS: Lactic Sepsis W/Reflex 1.8 mmol/L (0.5-2.2)
[2021-05-14 21:00] LABS: NT Pro B Type Natriuretic Pept 94 pg/mL (0-125)
[2021-05-14 21:12] LABS: Alanine Aminotransferase 28 U/L (0-33); Albumin Level 3.5 g/dL (3.5-5.2); Alkaline Phosphatase 82 IU/L (35-105); Anion Gap 14.6 (5-19); Aspartate Amino Transferase 61 U/L (0-32); Blood Urea Nitrogen 15 mg/dL (6-20); C Reactive Protein 38.9 mg/L (0.0-4.9); Calcium 7.9 mg/dL (8.5-10.5); Carbon Dioxide 27 mmol/L (22-29); Chloride 94 mmol/L (98-107); Globulin 3.6 g/dL (1.3-4.6); Glomerular Filtration Rate 73.9 mL/min (90-130); Glucose 124 mg/dL (65-115); Osmolality Calculated 276 mOsm/kg (285-295); Potassium 3.6 mmol/L (3.5-5.1); Sodium 132 mmol/L (136-145); Total Bilirubin 0.4 mg/dL (0.15-1.2); Total Protein 7.1 g/dL (6.6-8.7)
[2021-05-14] MEDS: ketorolac 30 mg/mL INJ 15 MG IVP (21:48)
[2021-05-14] MEDS: remdesivir 200 MG in sodium chloride 0.9% (100 ml) 100 ML 100 MG IV (23:32)
[2021-05-14] MEDS: dexamethasone 10 mg/mL INJ 6 MG IVP (23:32)
[2021-05-15] VITALS (102 sets, daily range): BP systolic 74–140; BP diastolic 44–72; PULSE 41–75; RESP 12–150; TEMP 36.3–37.2; O2SAT 89–100
--- NOTE | 2021-05-15 01:13 | PC.NURSE ---
report called to Laura OLMEDO
[2021-05-15] MEDS: sodium chloride 0.9% 1,000 ML 100 ML IV (02:02)
--- NOTE | 2021-05-15 03:43 | PM.HP ---
Providers/Chief Complaint Admitting Physician: Winter Monterroso MD Primary Care Provider: Yaya Myles MD Chief Complaint: SOB/COVID + History of Present Illness Maria Victoria New is a 55 year old female who presented to the emergency room with increasing difficulty breathing and low oxygen levels. She was diagnosed with Covid a couple of days ago. At the time of initial presentation to ED a few days ago, she was having lots of dizziness and had sustained a fall in which she described pain in her ribs. She was evaluated and discharged with home oxygen. She comes in today continuing to feel dizzy but primarily because she noticed that her oxygen saturations were lower on home pulse oximetry. She is also been much more tired and weak. She has had fever, generalized aches and pains. She is not sure if she has had loss of taste or smell. She had a productive cough. Denies any nausea, vomiting or diarrhea. She is not vaccinated. On arrival in the emergency room, oxygen saturations were in the mid 80s. She was placed on additional oxygen therapy via nasal cannula but had to transition quickly to heated high flow and subsequently BiPAP. She was started on remdesivir and dexamethasone and is being admitted for further evaluation and treatment. Review of Systems Const: Reports: fever(s), chills, body aches, fatigue and malaise Eyes: Reports: blurry vision ENMT: Reports: nasal congestion; Denies: throat pain, hoarseness or other (loss of taste and smell) Card: Reports: lightheadedness and dyspnea on exertion; Denies: chest pain, edema or syncope Resp: Reports: dyspnea, productive cough, non-productive cough, wheezing and chest congestion; Denies: pain on inspiration or hemoptysis GI: Denies: abdominal pain, nausea, vomiting, diarrhea or constipation : Denies: difficulty voiding (No new) Musc: Reports: back pain, extremity pain and muscle weakness; Denies: joint redness or joint warmth Skin/Breast: Denies: rash or sores Neuro: Reports: headache(s), weakness in extremities (general rather than focal), difficulty walking and dizziness; Denies: difficulty communicating thoughts or involuntary movements Psych: Reports: anxiety Neil/Lymph: Denies: easy bruising or easy bleeding Medications/Allergies Home Medications Medication Instructions Recorded Confirmed Last Taken Type oxybutynin chloride 5 mg tablet 5 mg PO BID 10/08/19 05/12/21 05/11/21 History omeprazole 20 mg PO BID 10/17/19 05/12/21 05/11/21 History gabapentin 600 mg tablet 1,200 mg PO TID 11/19/19 05/15/21 05/14/21 History ibuprofen [Advil] 400 mg PO Q6H PRN 03/23/20 05/12/21 11/12/20 History clonazepam 1 mg tablet 1 mg PO BID PRN tab 08/10/20 05/15/21 05/11/21 History albuterol sulfate [ProAir HFA] 2 puff INHALATION QID PRN 05/12/21 05/12/21 Unknown History amitriptyline 200 mg PO BEDTIME 05/12/21 05/15/21 05/12/21 History citalopram 20 mg PO BEDTIME 05/12/21 05/15/21 05/12/21 History lactulose 10 g PO TID PRN 05/12/21 05/12/21 Unknown History levofloxacin 500 mg PO QAM 05/12/21 05/15/21 05/13/21 History levothyroxine 75 mcg PO QAM 05/12/21 05/15/21 05/13/21 History losartan 25 mg PO QAM 05/12/21 05/15/21 05/13/21 History methadone 75 mg PO BID 05/12/21 05/12/21 05/11/21 History Allergies Allergy/AdvReac Type Severity Reaction Status Date / Time amoxicillin Allergy Intermediate rash Verified 05/12/21 15:20 egg Allergy Intermediate Vomiting Verified 05/12/21 15:20 morphine Allergy Intermediate rash Verified 05/12/21 15:20 Penicillins Allergy Intermediate ALGY-Rash Verified 05/12/21 15:20 promethazine Allergy Intermediate rash Verified 05/12/21 15:20 [email or web address] [From Nubain] AdvReac Intermediate ADR-Agitate Verified 05/12/21 15:20 d PFSH Acute PFSH: Medical History (Updated 05/15/21 @ 08:35 by Winter Monterroso MD) Benign essential HTN Cataract Generalized anxiety disorder Hx of chest pain Hx of shortness of breath Hypothyroidism Incontinence in female Major depressive disorder, recurrent severe without psychotic features Methadone dependence Microcytic anemia Neuropathy Other urethral stricture, female Post-traumatic stress disorder, chronic Surgical History (Updated 05/15/21 @ 06:13 by Winter Monterroso MD) H/O gastric bypass H/O: hysterectomy History of amputation of great toe of both feet History of cholecystectomy History of esophagogastroduodenoscopy (EGD) History of reconstructive repair of rectocele History of total right hip replacement Hx of appendectomy Family History Father , AT AGE 62 Cancer PROSTATE CANCER Grandmother Stroke Denies family history of Anesthesia complication Bleeding disorder Social History (Updated 05/15/21 @ 08:11 by Winter Monterroso MD) Smoking and tobacco status: never smoked Second hand smoke exposure: No Alcohol intake: never Adopted: Yes (Grandparents adopted her.) Caregiver/support person: No Lives independently: Yes Household members: none Housing: Apartment Marital status: / Number of children: 2 Number of grandchildren: 4 Highest education level completed: Associate Degree: Occupational, Technical, Vocational Program service: No Current occupational status: disabled Current occupational exposures/hazards: No Pets and animals: Yes Pets & animals: cat(s) Leisure activites: reading and other Leisure activities details: puzzles Sexually active: No Current gender identity: Female Ekta/Episcopal: Christianity Special ekta needs: No Agree to transfusion: Yes Financial difficulty paying for basics: Not Very Hard Female Reproductive History: Para: 2 Spontaneous abortions: No Vitals/I&O/Wt Last Vital Signs Temp 97.7 F 05/15/21 01:52 Pulse 61 05/15/21 03:41 Resp 19 H 05/15/21 03:41 BP 95/49 05/15/21 01:52 Pulse Ox 94 05/15/21 03:41 05/14/21 05/14/21 05/15/21 14:59 22:59 06:59 Intake Total 100 / 100 Balance 100 / 100 Weight last 48 hrs Weight 90.718 kg Physical Exam Narrative: EXAM NARRATIVE: Constitutional: Asleep, easily arousable, on BiPAP, looks acutely ill HEENT: normocephalic, conjunctiva injected, lips dry, BiPAP mask not removed Neck: Large but supple Respiratory: wheezes, crackles, tachypnea, mild supraclavicular retractions with attempts at talking Cardiovascular: regular rhythm, no murmurs Abdomen: soft, non tender, positive bowel sounds Extremities: no edema, no cyanosis, great toe removed from both feet Skin: dry, no rashes or large bruising, she does have some wounds to the second and third toes noted of the left foot at the tip Neuro: face symmetric, speech clear, moves all extremities, at various times had some shaking of her legs which she said she does to help with the discomfort in them Psych: cooperative Data : 05/15/21 05:49 05/15/21 05:49 Micro: Microbiology 05/14/21 20:32 Blood Culture - Preliminary Blood SPECIMEN COLLECTED 05/14/21 20:47 Blood Culture - Preliminary Blood SPECIMEN COLLECTED Other data: Chest X-Ray 05/14/21 20:07 IMPRESSION: Bilateral pulmonary consolidation, increased overall since 05/12/2021. Possible infection. A&P Assessment and plan (1) Fall: Status: Acute Qualifiers: Encounter type: initial encounter Qualified Code(s): W19.XXXA - Unspecified fall, initial encounter (2) Pneumonia due to COVID-19 virus: Status: Acute (3) Respiratory failure: Status: Acute Qualifiers: Chronicity: acute Respiratory failure complication: hypoxia Qualified Code(s): J96.01 - Acute respiratory failure with hypoxia (4) Methadone dependence: Status: Chronic (5) Microcytic anemia: Status: Chronic (6) Hypothyroidism: Status: Chronic Qualifiers: Hypothyroidism type: acquired Qualified Code(s): E03.9 - Hypothyroidism, unspecified (7) Generalized anxiety disorder: Status: Chronic (8) Post-traumatic stress disorder, chronic: Status: Chronic (9) COVID-19 vaccine dose not administered: Status: Acute Additional A&P Information Inpatient admission Initiate dexamethasone and remdesivir Evalaute for Actemra after montoring overnight Continue BiPAP weaning FiO2 as able Respiratory therapy to follow Inhalers Get additional baseline inflammatory markers Check TIBC Check B12 and folate given history of gastric bypass Blood cultures ordered Has a mildly elevated d dimer at 1.03 Has not had CTA given percent fio2 required currently as do not think could lie flat for examination Vitamin C, vitamin D, zinc Lovenox for DVT prophylaxis Continue home levothyoxine, a significantly lower dose of methadone as she reports due to hypotension, try to continue valsartan, a lower dose of elavil, gabapentin, citalopram, clanzepam, ppi Supportive care otherwise Currently anticipate discharge home, lesley with oxygen therapy, however it will ultimately depend on clinical course Findings, concerns and plans, including treatment were discussed with Mrs New abd she was given an opportunity to ask questions Full code Attestations Medical Necessity Statement*: Anticipate stay greater than 2 midnights in patient with covid, requiring oxygen and other care as noted above. At high risk of rapid clinical decline for reasons noted above. Coding Level of Care Code Acute Utilization Management Manager for [facility] Fwd Diagnoses Fall W19.XXXA Encounter type: initial encounter Pneumonia due to COVID-19 virus U07.1; J12.82 Respiratory failure J96.01 Chronicity: acute Respiratory failure complication: hypoxia Methadone dependence F11.20 Microcytic anemia D50.9 Hypothyroidism E03.9 Hypothyroidism type: acquired Generalized anxiety disorder F41.1 Post-traumatic stress disorder, chronic F43.12 COVID-19 vaccine dose not administered Z28.9
[2021-05-15] MEDS: gabapentin 300 mg Capsule 1200 MG PO ×2 (04:01→08:54)
[2021-05-15] MEDS: levothyroxine 75 mcg Tablet PO (06:00)
[2021-05-15 07:17] LABS: Hemoglobin 8.2 g/dL (11.5-15.3); Lymphocytes # 0.2 10^3/uL (0.8-4.8); Lymphocytes % 7.8 %; Mean Corpuscular HGB Conc 29.3 g/dL (30.0-36.0); Mean Corpuscular Hemoglobin 23.1 pg (28.0-34.0); Mean Corpuscular Volume 78.9 fl (81-99); Mean Platelet Volume 9.7 fL (7.4-10.4); Monocytes # 0.1 10^3/uL (0.2-0.9); Monocytes % 2.3 %; Neutrophils # 2.77 10^3/uL (1.8-7.7); Neutrophils % 89.6 %; Nucleated Red Blood Cells % 0 %; Platelet Count 141 10^3/cmm (130-400); Red Blood Count 3.55 10^6/uL (4.1-5.3); Red Cell Distribution Width 17.8 % (12.1-15.1); White Blood Count 3.1 10^3/uL (4.0-10.0)
[2021-05-15 07:27] LABS: Fibrinogen 399 mg/dL (174-498)
[2021-05-15 07:35] LABS: Alanine Aminotransferase 26 U/L (0-33); Albumin Level 3.2 g/dL (3.5-5.2); Alkaline Phosphatase 78 IU/L (35-105); Anion Gap 12.5 (5-19); Aspartate Amino Transferase 60 U/L (0-32); Blood Urea Nitrogen 15 mg/dL (6-20); Calcium 8.1 mg/dL (8.5-10.5); Carbon Dioxide 30 mmol/L (22-29); Chloride 96 mmol/L (98-107); Globulin 3.5 g/dL (1.3-4.6); Glomerular Filtration Rate 86.2 mL/min (90-130); Glucose 168 mg/dL (65-115); Osmolality Calculated 283 mOsm/kg (285-295); Potassium 4.5 mmol/L (3.5-5.1); Sodium 134 mmol/L (136-145); Total Bilirubin 0.3 mg/dL (0.15-1.2); Total Protein 6.7 g/dL (6.6-8.7)
[2021-05-15 07:40] LABS: NT Pro B Type Natriuretic Pept 134 pg/mL (0-125); Procalcitonin 0.09 ng/mL (0-0.5)
[2021-05-15 07:52] LABS: C Reactive Protein 43.1 mg/L (0.0-4.9); Ferritin 65 ng/mL (15-150); Lactate Dehydrogenase 258 U/L (135-214)
[2021-05-15 08:34] LABS: Creatine Phosphokinase 487 U/L (26-192)
[2021-05-15] MEDS: cholecalciferol (vitamin D3) 1,000 unit Tablet 2000 UNIT PO (08:51)
[2021-05-15] MEDS: zinc gluconate 50 mg Tablet PO (08:51)
[2021-05-15] MEDS: ascorbic acid 500 mg Tablet 1000 MG PO (08:51)
[2021-05-15] MEDS: enoxaparin 40 mg/0.4 mL Syringe SUBCUT (08:51)
[2021-05-15] MEDS: losartan 50 mg Tablet 25 MG PO (08:53)
[2021-05-15] MEDS: dexamethasone 10 mg/mL INJ 6 MG IVP (08:54)
[2021-05-15] MEDS: oxybutynin 5 mg Tablet PO ×2 (08:55→08:56)
[2021-05-15] MEDS: pantoprazole DR 40 mg Tablet PO (08:56)
--- NOTE | 2021-05-15 09:09 | PC.NURSE ---
administered patient's 500ml NS bolus with current NS fluids remaining in IV maintenance bag
--- NOTE | 2021-05-15 09:10 | USCV_ITS ---
Shaq Maria Victoria Age: 55 Gender: F : 1965 Exam Date: 05/15/2021 11:06 Ordering Phys: Chris Marc MD Technologist: Nila Douglas [place] [facility] [place]ication: Shortness of breath BP: 97 / 60 HR: 55 Rhythm: Sinus bradycardia Technical Quality: Suboptimal MEASUREMENTS (Male / Female) Normal Values 2D ECHO LV Diastolic Diameter PLAX 4.3 cm 4.2 - 5.9 / 3.9 - 5.3 cm LV Systolic Diameter PLAX 3.0 cm LV Chamber Size 4.6 cm IVS Diastolic Thickness 0.9 cm 0.6 - 1.0 / 0.6 - 0.9 cm IVS Systolic Thickness 1.2 cm LVPW Diastolic Thickness 1.1 cm 0.6 - 1.0 / 0.6 - 0.9 cm LVPW Systolic Thickness 1.1 cm RV Chamber Size 3.5 cm LVOT Diameter 2.0 cm LV Ejection Fraction 2D Teich 55.7 % LV Ejection Fraction MOD 2C 71.0 % LV Ejection Fraction 2C AL 73.6 % LA Diameter 3.8 cm LA Width 3.6 cm LA Height 5.2 cm RA Width 3.9 cm RA Height 4.6 cm Aorta at Sinotubular Diameter 3.0 cm M-MODE LV Diastolic Diameter MM 5.8 cm 4.2 - 5.9 / 3.9 - 5.3 cm LV Systolic Diameter MM 3.0 cm LV Ejection Fraction MM Teich 78.2 % IVS Diastolic Thickness MM 1.4 cm 0.6 - 1.0 / 0.6 - 0.9 cm IVS Systolic Thickness MM 1.6 cm LVPW Diastolic Thickness MM 1.1 cm 0.6 - 1.0 / 0.6 - 0.9 cm LVPW Systolic Thickness MM 1.6 cm Aortic Annulus Diameter 3.3 cm LA Ao Ratio MM 1.4 MV E Point Septal Separation 0.5 cm DOPPLER AV Peak Velocity 146.0 cm/s LVOT Peak Velocity 102.0 cm/s AV Area Cont Eq vti 2.6 cm squared AV Area Cont Eq pk 2.1 cm squared MV Area PHT 4.3 cm squared Mitral E to A Ratio 1.2 MV E' Velocity 61.5 cm/s Mitral E to MV E' Ratio 11.2 Mitral E to LV E' Lateral Ratio 9.8 Mitral E to LV E' Septal Ratio 13.4 TR Peak Velocity 223.0 cm/s TR Peak Gradient 19.9 mmHg TV Peak E Velocity 74.0 cm/s PV Peak Velocity 94.0 cm/s RV Acceleration Time 0.1 s RV Ejection Time 0.3 s RV AcT/ET 0.3 FINDINGS Left Ventricle Normal left ventricular size, systolic function and wall thickness, with no diagnostic regional wall motion abnormalities. Left ventricular ejection fraction is estimated at 60 %. Normal diastolic function. Right Ventricle Normal right ventricular size and systolic function. Right ventricular systolic pressure 23 mmHg. Right Atrium Normal right atrial size. Left Atrium Mildly increased left atrial size. Mitral Valve Mildly thickened mitral valve. No mitral valve stenosis. Trace mitral valve regurgitation. Aortic Valve Structurally normal trileaflet aortic valve. No aortic valve stenosis. No aortic valve regurgitation. Tricuspid Valve Tricuspid valve not well visualized. Trace tricuspid valve regurgitation. Pulmonic Valve Pulmonic valve not well visualized. No pulmonary valve stenosis. Mild pulmonary valve regurgitation. Pericardium No pericardial effusion. Aorta Normal-sized aortic root. Inferior vena cava not visualized. CONCLUSIONS 1. Normal left ventricular size, systolic function and wall thickness, with no diagnostic regional wall motion abnormalities. Left ventricular ejection fraction is estimated at 60 %. Normal diastolic function. 2. Normal right ventricular size and systolic function. 3. Pulmonary artery pressure estimated at 23 mmHg. 4. Mild pulmonary valve regurgitation. 5. No prior similar studies to compare. Charmaine Vidales MD (Electronically Signed) Final Date: 15 May 2021 13:41 S
--- NOTE | 2021-05-15 09:10 | CTR_ITS ---
PROCEDURE INFORMATION: Exam: CTA Chest With Contrast Exam date and time: 05/15/2021 9:10 AM Age: 55 years old Clinical indication: Shortness of breath; Patient HX: Covid+ w worsening SOB TECHNIQUE: Imaging protocol: Computed tomographic angiography of the chest with contrast. 3D rendering (Not supervised by radiologist): MIP and/or 3D reconstructed images were created by the technologist. Radiation optimization: All CT scans at this facility use at least one of these dose optimization techniques: automated exposure control; mA and/or kV adjustment per patient size (includes targeted exams where dose is matched to clinical indication); or iterative reconstruction. Contrast material: OMNI 350; Contrast volume: 89 ml; Contrast route: INTRAVENOUS (IV); COMPARISON: CT angio chest PE protcl [id number] 12/19/2020 12:44 AM RADIATION DOSE METRICS: Total DLP (mGy-cm): 537.25 FINDINGS: Pulmonary arteries: Normal. No pulmonary emboli. Aorta: Unremarkable. No aortic aneurysm. No aortic dissection. Lungs: Patchy irregular ground-glass lesions widely distributed throughout both lungs. Scattered intervening areas of unremarkable lung parenchyma are noted. Air bronchograms are visible through the lower lobe opacities without obstructing endobronchial lesion. Pleural spaces: Unremarkable. No pneumothorax. No pleural effusion. Heart: Unremarkable. No cardiomegaly. No pericardial effusion. Lymph nodes: Unremarkable. No enlarged lymph nodes. Gallbladder and bile ducts: Cholecystectomy. Stomach and bowel: Gastric bypass surgical changes are present. Gastrojejunostomy noted. Bones/joints: Unremarkable. No acute fracture. Soft tissues: Unremarkable. CT/CT angio chest PE protcl [id number] IMPRESSION: 1. Negative for pulmonary embolism. 2. Scattered nonspecific bilateral pulmonary ground-glass lesions. 3. Imaging features can be seen with COVID-19 pneumonia, though are nonspecific and can occur with a variety of infectious and noninfectious processes. (Reference: Tariq) REFERENCES: Tariq Peterson, et al., Radiological Society of [place] Expert Consensus Statement on Reporting Chest CT Findings Related to COVID-19. Endorsed by the Society of Thoracic Radiology, the [place] [employer], and RSNA. Published December 17, 2019. Radiation Dose CTDIVOL = (mGy): DLP = 537.25 (mGy-cm)
[2021-05-15] MEDS: folic acid 1 mg Tablet PO (09:49)
[2021-05-15] MEDS: cyanocobalamin 1,000 mcg Tablet 1000 MCG PO (09:49)
[2021-05-15] MEDS: methadone 10 mg Tablet 75 MG PO (10:32)
[2021-05-15] MEDS: vancomycin 1,500 MG/300 ML PIGGYBACK 200 MG IV ×2 (10:57→19:30)
[2021-05-15 11:31] LABS: Procalcitonin 0.08 ng/mL (0-0.5)
[2021-05-15 11:32] LABS: Thyroid Stimulating Hormone 0.34 uIU/mL (0.27-4.20)
--- NOTE | 2021-05-15 11:40 | PM.PN ---
Subjective Subjective: Interval history: Patient was seen this morning, she tells me that she uses methadone 75 mg daily, she has been using this dose for many years, she has been on methadone since her early 20s, she is currently on heated high flow, but not tolerating well, she thinks that she will tolerate the BiPAP better, she is complaining of some shortness of breath, but she feels that she is getting better, no history of lung disease, no history of heart disease, she does have anemia, recently had an EGD which did not have any significant findings, however her sigmoidoscopy was a poor quality study, Vitals/I&O/Wt Last Vital Signs Temp 97.4 F L 05/15/21 08:00 Pulse 59 L 05/15/21 10:04 Resp 19 H 05/15/21 10:32 BP 97/60 05/15/21 08:54 Pulse Ox 93 05/15/21 10:32 05/14/21 05/15/21 05/15/21 22:59 06:59 14:59 Intake Total 340 / 340 1118.333 / 1118.333 Balance 340 / 340 1118.333 / 1118.333 Weight last 48 hrs Weight 90.718 kg Physical Exam Const: COMMON NORMALS: no acute distress and alert ORIENTATION/CONSCIOUSNESS: Yes awake, Yes oriented to person, Yes oriented to place and Yes oriented to time Chest: COMMONS NORMALS: normal inspection of the chest Resp: COMMON NORMALS: normal respiratory effort, No retractions, No use of accessory muscles and clear to auscultation bilaterally AUSCULTATION: clear to auscultation bilaterally Cardio: COMMON NORMALS: regular rate, regular rhythm, S1 normal heart sound present and S2 normal heart sound present RATE: regular rate RHYTHM: regular rhythm HEART SOUNDS: S1 normal heart sound present and S2 normal heart sound present GI: COMMON NORMALS: Normal to inspection, nondistended, normoactive bowel sounds present, Soft to palpation and non-tender PALPATION: Yes Soft to palpation Extremity: COMMON NORMALS: no pedal edema Neuro: SENSORIUM/ORIENTATION: Yes alert, Yes oriented to person, Yes oriented to place and Yes oriented to time Data : 05/15/21 05:49 05/15/21 05:49 Micro: Microbiology 05/14/21 20:32 Blood Culture - Preliminary Blood SPECIMEN COLLECTED 08/21/21 20:47 Blood Culture - Preliminary Blood SPECIMEN COLLECTED A&P Assessment and plan (1) Fall: Status: Acute Qualifiers: Encounter type: initial encounter Qualified Code(s): W19.XXXA - Unspecified fall, initial encounter (2) Pneumonia due to COVID-19 virus: Status: Acute (3) Respiratory failure: Status: Acute Qualifiers: Chronicity: acute Respiratory failure complication: hypoxia Qualified Code(s): J96.01 - Acute respiratory failure with hypoxia (4) Methadone dependence: Status: Chronic (5) Microcytic anemia: Status: Chronic (6) Hypothyroidism: Status: Chronic Qualifiers: Hypothyroidism type: acquired Qualified Code(s): E03.9 - Hypothyroidism, unspecified (7) Generalized anxiety disorder: Status: Chronic (8) Post-traumatic stress disorder, chronic: Status: Chronic (9) COVID-19 vaccine dose not administered: Status: Acute Additional A&P Information Acute hypoxic respiratory failure secondary COVID-19 pneumonia Plan -Currently being managed in the Covid unit, however if she has worsening oxygen requirements, or respiratory distress will moved to the ICU -She is a high risk of intubation in the next 24 to 48 hours -Currently on BiPAP, 09/05, 60% -Continue dexamethasone -Continue remdesivir -We will consider Actemra based on clinical progress -Start broad-spectrum antibiotic therapy vancomycin, Zosyn -Follow blood cultures, urine cultures, urine documentations, sputum cultures -Incentive spirometer, flutter valve, pulmonary toilet -Albuterol -Budesonide -Continue Klonopin for anxiety -Vitamin C, zinc, vitamin D - patient's blood pressures are soft, she did receive valsartan this morning, hold valsartan, will give a liter bolus, monitor sepsis markers broaden antibiotic coverage, continue to monitor -CT angiogram ordered, cardiac echo ordered -Full code -SCDs for DVT prophylaxis, continue Lovenox for DVT prophylaxis, she does have a high risk of hypercoagulability given COVID-19, but does have acute on chronic anemia, hemoglobin down to 8.6, will need to monitor fairly closely Care History of Vance-en-Y gastric bypass, continue folic acid, B12, iron, Anxiety, continue Klonopin, Celexa Hypothyroidism, continue levothyroxine Methadone, continue methadone 75 mg daily questions Acute on chronic anemia, recently had an EGD without any significant findings, sigmoidoscopy was a poor quality study, will order iron studies, B12, folate, does have a history of Vance-en-Y gastric bypass, Hemoccult stool, Protonix 40 twice daily, monitor hemoglobin closely Attestations Medical Necessity Statement*: Patient requires hospitalization, inpatient, greater than 2 midnights, for acute hypoxic respiratory failure secondary COVID-19 pneumonia Coding Level of Care Code Acute 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
[2021-05-15 11:47] LABS: C Reactive Protein 42.1 mg/L (0.0-4.9)
[2021-05-15 11:55] LABS: Glucose Point of Care 176 mg/dL (70-110)
--- NOTE | 2021-05-15 11:56 | PC.NURSE ---
nurse knows about the low bp 86/51
--- NOTE | 2021-05-15 12:04 | PC.NURSE ---
Notified Dr Marc that patient has blood pressure of 86/51 and patient has carver placed and 1450mL urine output
--- NOTE | 2021-05-15 12:05 | ECG_ITS ---
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 Measurements Intervals [place] Rate: 54 P: 9 MT: 144 QRS: 23 QRSD: 97 T: 19 QT: 437 QTc: 417 Interpretive Statements SINUS BRADYCARDIA Compared to ECG 05/12/2021 14:36:46 Sinus rhythm no longer present Intraventricular conduction delay no longer present T-wave abnormality no longer present Electronically Signed On 05-16-2021 13:11:48 CDT by Charmaine Vidales M.D. [id number]
[2021-05-15 12:18] LABS: ABG PCO2 55.2 mmHg (35-45); ABG PH Result 7.32 (7.35-7.45); Alveolar-Arterial Oxygen Gradi 31.6 mmHg (5-10); Arterial Blood Gas Hematocrit 24.8 % (37-47); Base Excess ABG 1.8 mmol/L (-2.0-2.0); Blood Gas Allen Test Pos; Blood Gas Operator Identificat MONRO; Blood Gas Sample Site Brachial, left; Blood Gas Sample Type Arterial; Carboxyhemoglobin 1.2 %THgb (0.4-20.1); HCO3 ABG 28.4 mmol/L (22-26); Ionized Calcium Level - ABG 1.2 mmol/L (1.1-1.4); Methemoglobin 0.7 % (0.4-1.5); Oxygen Device BIPAP; Oxygen Saturation ABG 98.9; Potassium Level - ABG 4.1 mmol/L (3.5-5.0); Total Hemoglobin 8.1 g/dL (12-16)
[2021-05-15] MEDS: naloxone 0.4 mg/ml SDV 0.1 MG IVP (12:25)
[2021-05-15] MEDS: LORazepam 2 mg/mL INJ 1 mL (12:36)
[2021-05-15] MEDS: sodium chloride 0.9% 500 ML IV (12:49)
--- NOTE | 2021-05-15 12:49 | PC.NURSE ---
medication would not scan. verified with another nurse and started at 2ml/hr per order
--- NOTE | 2021-05-15 13:37 | PC.NURSE ---
TO ICU at 1330, via bed, Bipap on 60%, patient drowsy but AAOx3. BP 78/38, 52 HR, RR 21.
--- NOTE | 2021-05-15 13:37 | PC.NURSE ---
report called to Luca in ICU. patient taken to ICU 7.
--- NOTE | 2021-05-15 13:45 | USR_ITS ---
PROCEDURE INFORMATION: Exam: US Duplex Lower Extremity Veins, Bilateral Exam date and time: 05/15/2021 1:45 PM Age: 55 years old Clinical indication: Other: Covid +, shortness of breath, ? dvt TECHNIQUE: Imaging protocol: Real-time duplex ultrasound of the extremities with 2-D pierson scale, color Doppler flow and spectral waveform analysis with image documentation. Complete exam focused on the bilateral lower extremity veins. COMPARISON: CT abdomen pelvis w con* [id number] 11/18/2020 12:57 PM FINDINGS: Right deep veins: Unremarkable. The common femoral, femoral, proximal profunda femoral and popliteal veins are patent without thrombus. Normal Doppler waveforms. Normal compressibility and/or augmentation response. Calf veins are patent. Right superficial veins: Saphenofemoral junction is patent without thrombus. Left deep veins: Unremarkable. The common femoral, femoral, proximal profunda femoral and popliteal veins are patent without thrombus. Normal Doppler waveforms. Normal compressibility and/or augmentation response. Calf veins are patent. Left superficial veins: Saphenofemoral junction is patent without thrombus. Soft tissues: Unremarkable. US/[place] [id number] IMPRESSION: No evidence of lower extremity deep vein thrombosis.
--- NOTE | 2021-05-15 14:05 | ECG_ITS ---
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 Measurements Intervals [place] Rate: 56 P: 17 [place]: 156 QRS: 17 QRSD: 99 T: 30 QT: 436 QTc: 422 Interpretive Statements SINUS BRADYCARDIA NONSPECIFIC T-WAVE ABNORMALITY Compared to ECG 05/15/2021 13:17:45 T-wave abnormality now present Electronically Signed On 05-16-2021 13:21:20 CDT by Charmaine Vidales M.D. [id number] f
[2021-05-15 16:01] LABS: Hematocrit 29.7 % (37.0-47.0); Hemoglobin 8.9 g/dL (11.5-15.3); Lymphocytes # 0.3 10^3/uL (0.8-4.8); Lymphocytes % 4.6 %; Mean Corpuscular Hemoglobin 23.3 pg (28.0-34.0); Mean Corpuscular Volume 77.7 fl (81-99); Mean Platelet Volume 9.6 fL (7.4-10.4); Monocytes # 0.2 10^3/uL (0.2-0.9); Monocytes % 2.9 %; Neutrophils % 92.2 %; Nucleated Red Blood Cells % 0 %; Platelet Count 173 10^3/cmm (130-400); Red Blood Count 3.82 10^6/uL (4.1-5.3); Red Cell Distribution Width 17.6 % (12.1-15.1); White Blood Count 5.9 10^3/uL (4.0-10.0)
[2021-05-15 16:19] LABS: Troponin(5th) Baseline 9 ng/L (0-10)
[2021-05-15 16:29] LABS: Iron 11 ug/dL (37-145); Total Iron Binding Capacity 364 mcg/dl; Unsaturated Iron Binding 353 ug/dL (112-347)
[2021-05-15 16:44] LABS: Folate Level 14.3 ng/mL (4.8-37.3)
[2021-05-15 16:45] LABS: Vitamin B12 1437 pg/mL (232-1245)
[2021-05-15 16:48] LABS: Cortisol Random 4.08 ug/dL (2.47-19.5); Thyroid Stimulating Hormone 0.34 uIU/mL (0.27-4.20)
[2021-05-15 17:51] LABS: Hematocrit 29.6 % (37.0-47.0); Hemoglobin 8.9 g/dL (11.5-15.3)
[2021-05-15] MEDS: remdesivir 100 MG in sodium chloride 0.9% (100 ml) 100 ML IV (18:07)
[2021-05-15 18:48] LABS: Troponin 5 2HR 9.74 ng/L (0-10); Troponin 5 2HR Delta 0.74 ABS# (0-10)
[2021-05-15] MEDS: midodrine 5 mg TABLET 10 MG PO (19:30)
--- NOTE | 2021-05-15 19:30 | PC.NURSE ---
Shift Note Frequent safety and comfort rounds continue. Orders and/or nursing care completed as indicated. Patient monitored for response to intervention and treatment(s). Education provided includes bi-pap and pressor medications. Patient and/or housing management representative verbally understood. Will continue to monitor. Received bed side shift report from off going nurse. Pt's plan of care reviewed. Pt resting in bed. Respirations are even and unlabored. No s/sx of distress noted. Pt is currently on bi-pap and tolerating it well. Pt is drowsy but easily woken. When awake pt is alert and oriented and follows commands. Pt denies any pains or concerns at this time. States that she just feels worn out. Bed in lowest and locked position, call light within reach, x's 2 rails up. Will continue to monitor pt.
[2021-05-15] MEDS: gabapentin 300 mg Capsule 600 MG PO (19:31)
[2021-05-15] MEDS: pantoprazole 40 mg SDV IVP (19:32)
[2021-05-15] MEDS: citalopram 20 mg Tablet PO (19:32)
--- NOTE | 2021-05-15 20:06 | XRR_ITS ---
PROCEDURE INFORMATION: Exam: XR Chest Exam date and time: 05/15/2021 8:06 PM Age: 55 years old Clinical indication: Device placement; Picc; Additional info: Picc insertion TECHNIQUE: Imaging protocol: XR of the chest. Views: 1 view. COMPARISON: CR (CHEST, ) 05/14/2021 8:14 PM FINDINGS: Tubes, catheters and devices: Right upper extremity PICC line terminates mid SVC with unremarkable position. Lungs: Scattered ground-glass opacities of both lungs. Diffusely increased interstitial lung markings which are overall poorly defined. Decreased lung volumes. Pleural spaces: Unremarkable. No pleural effusion. No pneumothorax. Heart/Mediastinum: Mild cardiac enlargement. Bones/joints: Unremarkable. XR/XR chest 1V portable [id number] IMPRESSION: Satisfactory PICC line position.
--- NOTE | 2021-05-15 20:51 | PC.NURSE ---
PICC RIGHT arm placed, no complications. Primary nurse notified.
[2021-05-15 22:36] LABS: Troponin 5 6HR 10.28 ng/L (0-10); Troponin 5 6HR Delta 1.28 ng/L (0-12)
[2021-05-15] MEDS: iohexol 350 mg/mL 100 mL Btl IV (23:42)
[2021-05-16] VITALS (101 sets, daily range): BP systolic 89–122; BP diastolic 49–71; PULSE 46–72; RESP 13–25; TEMP 36.6–37.1; O2SAT 83–100
[2021-05-16] MEDS: levothyroxine 75 mcg Tablet PO (07:22)
[2021-05-16 07:34] LABS: Hematocrit 27.5 % (37.0-47.0); Hemoglobin 8.2 g/dL (11.5-15.3); Lymphocytes # 0.5 10^3/uL (0.8-4.8); Lymphocytes % 10.7 %; Mean Corpuscular HGB Conc 29.8 g/dL (30.0-36.0); Mean Corpuscular Hemoglobin 23.2 pg (28.0-34.0); Mean Corpuscular Volume 77.7 fl (81-99); Mean Platelet Volume 9.8 fL (7.4-10.4); Monocytes # 0.2 10^3/uL (0.2-0.9); Monocytes % 3.2 %; Neutrophils # 4.08 10^3/uL (1.8-7.7); Neutrophils % 85.9 %; Nucleated Red Blood Cells % 0 %; Platelet Count 155 10^3/cmm (130-400); Red Blood Count 3.54 10^6/uL (4.1-5.3); Red Cell Distribution Width 17.9 % (12.1-15.1); White Blood Count 4.8 10^3/uL (4.0-10.0)
[2021-05-16 07:54] LABS: Alanine Aminotransferase 23 U/L (0-33); Alkaline Phosphatase 84 IU/L (35-105); Anion Gap 11.5 (5-19); Aspartate Amino Transferase 36 U/L (0-32); Blood Urea Nitrogen 10 mg/dL (6-20); Calcium 8.5 mg/dL (8.5-10.5); Carbon Dioxide 31 mmol/L (22-29); Chloride 100 mmol/L (98-107); Globulin 3.3 g/dL (1.3-4.6); Glomerular Filtration Rate 164.5 mL/min (90-130); Glucose 127 mg/dL (65-115); Magnesium 1.9 mg/dL (1.7-2.3); Osmolality Calculated 287 mOsm/kg (285-295); Phosphorus 2.7 mg/dL (2.5-4.5); Potassium 4.5 mmol/L (3.5-5.1); Sodium 138 mmol/L (136-145); Total Bilirubin 0.3 mg/dL (0.15-1.2); Total Protein 6.3 g/dL (6.6-8.7)
--- NOTE | 2021-05-16 09:03 | PC.CHAP ---
Pastoral Care Encounter/Spiritual Assessment Type of Contact [] Declined engraver hand hard metals visit [] Patient/Family/Request visit [] Outpatient visit [] Follow-up visit [] Physician referral [] Code/Alert [x] Routine visit [] Staff referral [] Actively dying [] Patient sleeping [] Family support [] [] Out of room [] Palliative care [] [] Receiving care in room [] Pre-surgical visit [] Trauma [] Long length of stay [x] ICU visit [] Other: Relational/Emotional Strength [] Patient feels connected with others/family/visitors/staff [] Distress [] Loneliness/isolation [] Abandonment Spirituality of Patient [] Person of Ekta [] Attends Episcopal of their [place] [] Believes in Prayer [] Reads Bible or Hinduism materials [] There are Spiritual issues to be addressed School Bus Aide Interventions [x] Prayer [] Active listening [] Non-anxious presence [] Spiritual/emotional support [] Crisis/trauma care [] Spiritual counseling [] Bereavement support [] Provided bereavement packet [] Provided Bible/devotional materials [] Provided toy/stuffed animal, coloring book to patient or family member [] Provided Communion [] Anointing/[place] [] Salvation [x] Completed spiritual assessment [] Other: Impact on Illness or Injury [] Angry [] Fearful [] Anxious [] Often cries [] Exhaustion [] Unable to work [] Unable to attend anglican [] Unable to walk/stand [] Unable to read [] Unable to drive [] Unable to eat/drink [] Unable to sleep [] Unable to be with family [] Patient intubated [] Other: Summary Time spent with patient
[2021-05-16] MEDS: albuterol 8 gm MDI 2 PUFF INHALATION ×3 (09:45→20:46)
[2021-05-16] MEDS: dexamethasone 10 mg/mL INJ 6 MG IVP (09:45)
[2021-05-16] MEDS: ascorbic acid 500 mg Tablet 1000 MG PO ×2 (09:46→18:21)
[2021-05-16] MEDS: methadone 10 mg Tablet 50 MG PO (09:46)
[2021-05-16] MEDS: pantoprazole 40 mg SDV IVP ×2 (09:46→20:16)
[2021-05-16] MEDS: midodrine 5 mg TABLET 10 MG PO ×3 (09:47→20:16)
[2021-05-16] MEDS: zinc gluconate 50 mg Tablet PO (09:47)
[2021-05-16] MEDS: cholecalciferol (vitamin D3) 1,000 unit Tablet 2000 UNIT PO (09:47)
[2021-05-16] MEDS: gabapentin 300 mg Capsule 600 MG PO ×3 (09:47→20:14)
[2021-05-16] MEDS: folic acid 1 mg Tablet PO (09:47)
[2021-05-16] MEDS: cyanocobalamin 1,000 mcg Tablet 1000 MCG PO (09:47)
[2021-05-16] MEDS: vancomycin 1,500 MG/300 ML PIGGYBACK 200 MG IV ×2 (09:48→20:37)
[2021-05-16 12:56] LABS: Hematocrit 28.6 % (37.0-47.0); Hemoglobin 8.3 g/dL (11.5-15.3)
--- NOTE | 2021-05-16 17:40 | PM.PN ---
Subjective Subjective: Interval history: Yesterday afternoon, patient was examined, after getting the 75 mg of methadone and gabapentin she became quite drowsy, she was placed on BiPAP, remained quite drowsy, so she was given Narcan, she became very agitated right after, agitated with me and nursing staff, but was able to calm down with 1 mg of Ativan, she was moved down to the ICU, kept on BiPAP, remained drowsy to some degree, but arousable, blood pressures remained soft, so she had a PICC line placed, placed on broad-spectrum antibiotic therapy, Overnight no acute events, she is not on pressors, remained on midodrine, remained afebrile, normotensive, on BiPAP This morning patient is on BiPAP, she is alert and oriented x3, she follows all commands, she tells me that her pain is minimal, I advised her that regular reduce her dose of methadone and gabapentin down, she understands this given her drowsiness with higher dose of the medication, she denies any fevers, no chills, no cough, no chest pain, no shortness of breath Vitals/I&O/Wt Last Vital Signs Temp 97.8 F 05/16/21 10:00 Pulse 55 L 05/16/21 17:00 Resp 16 05/16/21 17:00 BP 105/61 05/16/21 17:00 Pulse Ox 91 05/16/21 17:00 05/16/21 05/16/21 05/16/21 06:59 14:59 22:59 Intake Total 100 / 2162.529 609.804 / 609.804 Output Total 1100 / 3250 Balance -1000 / -1087.471 609.804 / 609.804 Weight last 48 hrs Weight 90.718 kg Physical Exam Const: COMMON NORMALS: no acute distress and patient oriented x3 Chest: COMMONS NORMALS: normal inspection of the chest Resp: COMMON NORMALS: normal respiratory effort, No retractions, No use of accessory muscles and clear to auscultation bilaterally AUSCULTATION: clear to auscultation bilaterally Cardio: COMMON NORMALS: regular rate, regular rhythm, S1 normal heart sound present and S2 normal heart sound present RATE: regular rate RHYTHM: regular rhythm HEART SOUNDS: S1 normal heart sound present and S2 normal heart sound present GI: COMMON NORMALS: Normal to inspection, nondistended, normoactive bowel sounds present, Soft to palpation and non-tender PALPATION: Yes Soft to palpation Extremity: COMMON NORMALS: no pedal edema Neuro: COMMON NORMALS: patient oriented x3 Urinary Catheter Management^: Lopez: Cath Placed During This Visit: yes Reason for Continuing Indwelling Catheter: Accurate Measurement of Urinary Output in Critically Ill Patients Urinary Catheter Date of Insertion: 05/15/21 Urinary Catheter Time of Insertion: 11:56 Data : 05/16/21 12:42 05/16/21 07:11 Micro: Microbiology 05/16/21 12:45 Bacterial Antigens - Final Urine,Voided 05/14/21 20:32 Blood Culture - Preliminary Blood NEGATIVE TO DATE 05/14/21 20:47 Blood Culture - Preliminary Blood NEGATIVE TO DATE A&P Assessment and plan (1) Fall: Status: Acute Qualifiers: Encounter type: initial encounter Qualified Code(s): W19.XXXA - Unspecified fall, initial encounter (2) Pneumonia due to COVID-19 virus: Status: Acute (3) Respiratory failure: Status: Acute Qualifiers: Chronicity: acute Respiratory failure complication: hypoxia Qualified Code(s): J96.01 - Acute respiratory failure with hypoxia (4) Methadone dependence: Status: Chronic (5) Microcytic anemia: Status: Chronic (6) Hypothyroidism: Status: Chronic Qualifiers: Hypothyroidism type: acquired Qualified Code(s): E03.9 - Hypothyroidism, unspecified (7) Generalized anxiety disorder: Status: Chronic (8) Post-traumatic stress disorder, chronic: Status: Chronic (9) COVID-19 vaccine dose not administered: Status: Acute Additional A&P Information Acute hypoxic respiratory failure secondary COVID-19 pneumonia -CT angiogram of the chest unremarkable for pulmonary emboli, does show scattered nonspecific bilateral pulmonary groundglass lesions -Bilateral lower extremity venous ultrasounds negative for DVT -Echocardiogram shows an EF of 60%, normal diastolic dysfunction Plan -Currently being managed in the ICU -Currently on BiPAP, 16/8, 40% FiO2 -Has some evidence of hypercarbia this morning, continue BiPAP -Continue dexamethasone -Continue remdesivir -We will consider Actemra based on clinical progress -Continue broad-spectrum antibiotic therapy vancomycin, Zosyn -Methadone dose reduced down to 50 mg, gabapentin 600 mg 3 times daily, Klonopin on hold -Has bradycardia, EKG no QT prolongation, monitor heart rates, treat if heart rate is less than 50 and she is symptomatic, possible etiology is remdesivir -Follow blood cultures, urine cultures, urine documentations, sputum cultures -Incentive spirometer, flutter valve, pulmonary toilet -Albuterol -Budesonide -Vitamin C, zinc, vitamin D - continue midodrine -Full code -SCDs for DVT prophylaxis, continue Lovenox for DVT prophylaxis, she does have a high risk of hypercoagulability given COVID-19, but does have acute on chronic anemia, hemoglobin down to 8.6, will need to monitor fairly closely Care History of Vance-en-Y gastric bypass, continue folic acid, B12, iron, Anxiety, hold Klonopin, continue Celexa Hypothyroidism, continue levothyroxine Methadone, continue methadone 50 mg daily questions Acute on chronic anemia, recently had an EGD without any significant findings, sigmoidoscopy was a poor quality study, does have evidence of iron deficiency anemia does have a history of Vance-en-Y gastric bypass, Hemoccult stool, Protonix 40 twice daily, monitor hemoglobin closely Plan for today, continue Decadron, remdesivir, broad-spectrum antibiotic therapy, BiPAP, monitor hemoglobin Attestations Medical Necessity Statement*: Patient requires hospitalization for acute respiratory failure secondary to COVID-19 Coding Level of Care Code Acute Customer Response Representative for Chg Fwd Diagnoses Fall W19.XXXA Encounter type: initial encounter Pneumonia due to COVID-19 virus U07.1; J12.82 Respiratory failure J96.01 Chronicity: acute Respiratory failure complication: hypoxia Methadone dependence F11.20 Microcytic anemia D50.9 Hypothyroidism E03.9 Hypothyroidism type: acquired Generalized anxiety disorder F41.1 Post-traumatic stress disorder, chronic F43.12 COVID-19 vaccine dose not administered Z28.9
[2021-05-16] MEDS: remdesivir 100 MG in sodium chloride 0.9% (100 ml) 100 ML IV (18:21)
--- NOTE | 2021-05-16 19:54 | PC.NURSE ---
Shift Note: Pt has rested in bed all of shift. She has refused any offers for repositioning throughout shift. No issues with BiPa use today. She has mostly just wanted to lie and rest with eyes closed except for time for medications. Frequent safety and comfort rounds continue. Orders and/or nursing care completed as indicated. Patient monitored for response to intervention and treatment(s). Education provided includes gabapentin, methadone, respiratory depression, Bipap, Sleep apnea. Patient verbalized understanding and agreement with care plan. Will continue to monitor.
[2021-05-16] MEDS: citalopram 20 mg Tablet PO (20:14)
[2021-05-16 21:47] LABS: Vancomycin Trough 11.6 ug/mL (10-15)
[2021-05-17] VITALS (54 sets, daily range): BP systolic 81–139; BP diastolic 50–78; PULSE 43–153; RESP 17–26; TEMP 36.6; O2SAT 62–98
[2021-05-17 04:31] LABS: Hematocrit 27.7 % (37.0-47.0); Hemoglobin 8.1 g/dL (11.5-15.3); Lymphocytes # 0.6 10^3/uL (0.8-4.8); Lymphocytes % 11.4 %; Mean Corpuscular HGB Conc 29.2 g/dL (30.0-36.0); Mean Corpuscular Hemoglobin 23.1 pg (28.0-34.0); Mean Corpuscular Volume 79.1 fl (81-99); Monocytes # 0.3 10^3/uL (0.2-0.9); Monocytes % 5.7 %; Neutrophils # 4.61 10^3/uL (1.8-7.7); Neutrophils % 82.4 %; Nucleated Red Blood Cells % 0 %; Platelet Count 164 10^3/cmm (130-400); Red Cell Distribution Width 18.2 % (12.1-15.1); White Blood Count 5.6 10^3/uL (4.0-10.0)
[2021-05-17 04:54] LABS: ABG PCO2 45.8 mmHg (35-45); ABG PH Result 7.46 (7.35-7.45); Arterial Blood Gas Hematocrit 26.9 % (37-47); Base Excess ABG 7.4 mmol/L (-2.0-2.0); Blood Gas Operator Identificat JB; Blood Gas Sample Site Brachial, right; Blood Gas Sample Type Arterial; HCO3 ABG 32.2 mmol/L (22-26); Oxygen Device BIPAP; PO2 ABG 70.6 mmHg (80.0-100.0)
[2021-05-17 05:04] LABS: Alanine Aminotransferase 18 U/L (0-33); Albumin Level 2.8 g/dL (3.5-5.2); Alkaline Phosphatase 68 IU/L (35-105); Anion Gap 12.6 (5-19); Aspartate Amino Transferase 27 U/L (0-32); Blood Urea Nitrogen 10 mg/dL (6-20); C Reactive Protein 14.9 mg/L (0.0-4.9); Calcium 8.3 mg/dL (8.5-10.5); Carbon Dioxide 28 mmol/L (22-29); Chloride 99 mmol/L (98-107); Globulin 3.1 g/dL (1.3-4.6); Glomerular Filtration Rate 164.5 mL/min (90-130); Glucose 161 mg/dL (65-115); Magnesium 1.9 mg/dL (1.7-2.3); Osmolality Calculated 283 mOsm/kg (285-295); Phosphorus 3.2 mg/dL (2.5-4.5); Potassium 4.6 mmol/L (3.5-5.1); Sodium 135 mmol/L (136-145); Total Bilirubin 0.3 mg/dL (0.15-1.2); Total Protein 5.9 g/dL (6.6-8.7)
[2021-05-17 05:59] LABS: NT Pro B Type Natriuretic Pept 278 pg/mL (0-125); Procalcitonin 0.07 ng/mL (0-0.5)
--- NOTE | 2021-05-17 06:00 | ECG_ITS ---
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 Measurements Intervals [place] Rate: 68 P: 9 [place]: 152 QRS: 14 QRSD: 96 T: -13 QT: 432 QTc: 459 Interpretive Statements SINUS RHYTHM NONSPECIFIC T-WAVE ABNORMALITY Compared to ECG 05/15/2021 17:06:47 Sinus bradycardia no longer present T-wave abnormality still present Electronically Signed On 05-17-2021 17:10:58 CDT by Christopher Haney M.D. [email or web address] [facility] [email or web address]/[id number]
[2021-05-17] MEDS: levothyroxine 75 mcg Tablet PO (06:03)
[2021-05-17 06:10] LABS: Creatine Phosphokinase 77 U/L (26-192)
--- NOTE | 2021-05-17 06:10 | PC.NURSE ---
Shift Note Frequent safety and comfort rounds continue. Orders and/or nursing care completed as indicated. Patient monitored for response to intervention and treatment(s). Education provided includes[oxygen saftey]. Patient and/or outside medical sales representative [reported understanding oxygen saftey teaching]. Will continue to monitor.
--- NOTE | 2021-05-17 07:00 | XRR_ITS ---
PROCEDURE INFORMATION: Exam: XR Chest Exam date and time: 05/17/2021 7:00 AM Age: 55 years old Clinical indication: Dyspnea; Additional info: SOB TECHNIQUE: Imaging protocol: XR of the chest. Views: 1 view. Total images: 1 COMPARISON: CR (CHEST, ) 05/15/2021 8:16 PM FINDINGS: Tubes, catheters and devices: Right-sided PICC tip is unchanged in position. Lungs: Bilateral pulmonary opacities are again noted and appear unchanged. Pleural spaces: Unremarkable. No pleural effusion. No pneumothorax. Heart/Mediastinum: Heart size is stable when compared to the prior exam. Bones/joints: Osseous structures are unchanged from the prior exam. XR/XR chest 1V portable [id number] IMPRESSION: Bilateral pulmonary opacities are again noted and appear unchanged.
[2021-05-17 08:12] LABS: INR 0.93 (0.8-1.2)
[2021-05-17 08:13] LABS: Partial Thromboplastin Time 28.4 SECONDS (23.9-36.7)
[2021-05-17 08:20] LABS: Lactate (Lactic Acid level) 0.8 mmol/L (0.5-2.2)
[2021-05-17] MEDS: cholecalciferol (vitamin D3) 1,000 unit Tablet 2000 UNIT PO (08:25)
[2021-05-17] MEDS: dexamethasone 10 mg/mL INJ 6 MG IVP (08:25)
[2021-05-17] MEDS: folic acid 1 mg Tablet PO (08:26)
[2021-05-17] MEDS: methadone 10 mg Tablet 50 MG PO (08:26)
[2021-05-17] MEDS: midodrine 5 mg TABLET 10 MG PO ×3 (08:26→20:22)
[2021-05-17] MEDS: ascorbic acid 500 mg Tablet 1000 MG PO ×2 (08:26→17:46)
[2021-05-17] MEDS: zinc gluconate 50 mg Tablet PO (08:27)
[2021-05-17] MEDS: cyanocobalamin 1,000 mcg Tablet 1000 MCG PO (08:27)
[2021-05-17] MEDS: gabapentin 300 mg Capsule 600 MG PO ×3 (08:27→20:22)
--- NOTE | 2021-05-17 08:29 | PC.CHAP ---
Pastoral Care Encounter/Spiritual Assessment Type of Contact [] Declined vba developer visit [] Patient/Family/Request visit [] Outpatient visit [] Follow-up visit [] Physician referral [] Code/Alert [x] Routine visit [] Staff referral [] Actively dying [x] Patient sleeping [] Family support [] [] Out of room [] Palliative care [] [] Receiving care in room [] Pre-surgical visit [] Trauma [] Long length of stay [x] ICU visit [x] Other: vent... Relational/Emotional Strength [] Patient feels connected with others/family/visitors/staff [] Distress [] Loneliness/isolation [] Abandonment Spirituality of Patient [] Person of Ekta [] Attends Latter Day of their Ekta [] Believes in Prayer [] Reads Bible or Amish materials [] There are Spiritual issues to be addressed Business Process Expert Interventions [x] Prayer [] Active listening [] Non-anxious presence [] Spiritual/emotional support [] Crisis/trauma care [] Spiritual counseling [] Bereavement support [] Provided bereavement packet [] Provided Bible/devotional materials [] Provided toy/stuffed animal, coloring book to patient or family member [] Provided Communion [] Anointing/[place] [] Salvation [x] Completed spiritual assessment [] Other: Impact on Illness or Injury [] Angry [] Fearful [] Anxious [] Often cries [] Exhaustion [] Unable to work [] Unable to attend druze [] Unable to walk/stand [] Unable to read [] Unable to drive [] Unable to eat/drink [] Unable to sleep [] Unable to be with family [] Patient intubated [] Other: Summary Time spent with patient
--- NOTE | 2021-05-17 13:16 | P.PN_ITS ---
Subjective Subjective: Interval history: Patient was seen this morning, she tells me that she did not get sleep during the night due to pain, she continues to hurt all over, no nausea, no vomiting, no chest pain, no palpitations, she tells me that she is breathing easier, no fevers overnight Vitals/I&O/Wt Last Vital Signs Temp 97.8 F 05/16/21 10:00 Pulse 68 05/17/21 11:40 Resp 18 05/17/21 09:57 BP 130/67 05/17/21 06:00 Pulse Ox 90 05/17/21 11:40 05/16/21 05/17/21 05/17/21 22:59 06:59 14:59 Intake Total 500 / 1859.804 Output Total 700 / 700 400 / 1100 Balance -200 / 1159.804 -400 / 759.804 Physical Exam Const: COMMON NORMALS: no acute distress and patient oriented x3 Resp: COMMON NORMALS: normal respiratory effort, No retractions, No use of accessory muscles and clear to auscultation bilaterally AUSCULTATION: clear to auscultation bilaterally Cardio: COMMON NORMALS: regular rate, regular rhythm, S1 normal heart sound present and S2 normal heart sound present RATE: regular rate RHYTHM: regular rhythm HEART SOUNDS: S1 normal heart sound present and S2 normal heart sound present GI: COMMON NORMALS: Normal to inspection, nondistended, normoactive bowel darell nds present, Soft to palpation and non-tender PALPATION: Yes Soft to palpation Extremity: COMMON NORMALS: no pedal edema Neuro: COMMON NORMALS: patient oriented x3 Psych: COMMON NORMALS: mental status grossly normal Urinary Catheter Management^: Lopez: Cath Placed During This Visit: yes Reason for Continuing Indwelling Catheter: Accurate Measurement of Urinary Output in Critically Ill Patients Urinary Catheter Date of Insertion: 05/15/21 Urinary Catheter Time of Insertion: 11:56 Data : 05/17/21 04:08 05/17/21 04:08 Micro: Microbiology 05/16/21 12:45 Bacterial Antigens - Final Urine,Voided A&P Assessment and plan (1) Fall: Status: Acute Qualifiers: Encounter type: initial encounter Qualified Code(s): W19.XXXA - Unspecified fall, initial encounter (2) Pneumonia due to COVID-19 virus: Status: Acute (3) Respiratory failure: Status: Acute Qualifiers: Chronicity: acute Respiratory failure complication: hypoxia Qualified Code(s): J96.01 - Acute respiratory failure with hypoxia (4) Methadone dependence: Status: Chronic (5) Microcytic anemia: Status: Chronic (6) Hypothyroidism: Status: Chronic Qualifiers: Hypothyroidism type: acquired Qualified Code(s): E03.9 - Hypothyroidism, unspecified (7) Generalized anxiety disorder: Status: Chronic (8) Post-traumatic stress disorder, chronic: Status: Chronic (9) COVID-19 vaccine dose not administered: Status: Acute Additional A&P Information Acute hypoxic respiratory failure secondary COVID-19 pneumonia -CT angiogram of the chest unremarkable for pulmonary emboli, does show sc attered nonspecific bilateral pulmonary groundglass lesions -Bilateral lower extremity venous ultrasounds negative for DVT -Echocardiogram shows an EF of 60%, normal diastolic dysfunction -ABG pH 7.46, PCO2 45.8, PO2 70.6 on BiPAP 60% -Has balanced ins and outs Plan -We will move out of ICU to Covid unit -Can use high flow during the day wean as tolerated, BiPAP during the night 16/, 40% FiO2 -Continue dexamethasone -Continue remdesivir -We will consider Actemra based on clinical progress -Continue broad-spectrum antibiotic therapy vancomycin, Zosyn -Methadone dose reduced down to 50 mg will add an extra 5 mg in the afternoon, gabapentin 600 mg 3 times daily, Klonopin on hold -Has bradycardia, EKG no QT prolongation, monitor heart rates, treat if heart rate is less than 50 and she is symptomatic, possible etiology is remdesivir -Follow blood cultures, urine cultures, urine documentations, sputum cultures -Incentive spirometer, flutter valve, pulmonary toilet -Albuterol -Budesonide -Vitamin C, zinc, vitamin D - continue midodrine -Full code -SCDs for DVT prophylaxis, continue Lovenox for DVT prophylaxis, she does have a high risk of hypercoagulability given COVID-19, but does have acute on chronic anemia, hemoglobin down to 8.1, will need to monitor fairly closely Care History of Vance-en-Y gastric bypass, continue folic acid, B12, iron, Anxiety, hold Klonopin, continue Celexa Hypothyroidism, continue levothyroxine Methadone, continue methadone 50 mg daily questions, add an extra 5 mg in the afternoon Acute on chronic anemia, recently had an EGD without any significant findings, sigmoidoscopy was a poor quality study, does have evidence of iron deficiency anemia does have a history of Vance-en-Y gastric bypass, Hemoccult stool, Protonix 40 twice daily, monitor hemoglobin closely Plan for today, continue Decadron, remdesivir, broad-spectrum antibiotic therapy, BiPAP, monitor hemoglobin, will moved to Covid unit Attestations Medical Necessity Statement*: Patient requires hospitalization due to pneumonia secondary COVID-19, acute respiratory failure Coding Level of Care Code Acute Configuration Management Architect for Chg Fwd Diagnoses Fall W19.XXXA Encounter type: initial encounter Pneumonia due to COVID-19 virus U07.1; J12.82 Respiratory failure J96.01 Chronicity: acute Respiratory failure complication: hypoxia Methadone dependence F11.20 Microcytic anemia D50.9 Hypothyroidism E03.9 Hypothyroidism type: acquired Generalized anxiety disorder F41.1 Post-traumatic stress disorder, chronic F43.12 COVID-19 vaccine dose not administered Z28.9
[2021-05-17] MEDS: methadone 10 mg Tablet 5 MG PO (13:53)
[2021-05-17] MEDS: vancomycin 1,500 MG/300 ML PIGGYBACK 200 MG IV ×2 (13:54→20:37)
[2021-05-17] MEDS: pantoprazole 40 mg SDV IVP ×2 (13:54→20:22)
[2021-05-17] MEDS: albuterol 8 gm MDI 2 PUFF INHALATION ×2 (15:36→19:43)
[2021-05-17] MEDS: remdesivir 100 MG in sodium chloride 0.9% (100 ml) 100 ML IV (17:46)
[2021-05-17] MEDS: citalopram 20 mg Tablet PO (20:22)
[2021-05-18] VITALS (46 sets, daily range): BP systolic 100–140; BP diastolic 60–85; PULSE 53–87; RESP 13–30; TEMP 36.7; O2SAT 81–99
[2021-05-18] MEDS: albuterol 8 gm MDI 2 PUFF INHALATION ×3 (03:26→21:29)
[2021-05-18 04:18] LABS: Hematocrit 29.1 % (37.0-47.0); Hemoglobin 8.6 g/dL (11.5-15.3); Lymphocytes # 0.4 10^3/uL (0.8-4.8); Lymphocytes % 11.3 %; Mean Corpuscular HGB Conc 29.6 g/dL (30.0-36.0); Mean Corpuscular Hemoglobin 22.8 pg (28.0-34.0); Mean Corpuscular Volume 77.2 fl (81-99); Mean Platelet Volume 9.4 fL (7.4-10.4); Monocytes # 0.2 10^3/uL (0.2-0.9); Monocytes % 4.2 %; Neutrophils # 2.95 10^3/uL (1.8-7.7); Neutrophils % 83.4 %; Nucleated Red Blood Cells % 0 %; Platelet Count 168 10^3/cmm (130-400); Red Blood Count 3.77 10^6/uL (4.1-5.3); Red Cell Distribution Width 17.8 % (12.1-15.1); White Blood Count 3.5 10^3/uL (4.0-10.0)
[2021-05-18 04:34] LABS: INR 1.05 (0.8-1.2)
[2021-05-18 04:41] LABS: Lactate (Lactic Acid level) 1.6 mmol/L (0.5-2.2)
[2021-05-18 04:44] LABS: ABG PCO2 45.5 mmHg (35-45); ABG PH Result 7.46 (7.35-7.45); Arterial Blood Gas Hematocrit 26.3 % (37-47); Base Excess ABG 7.3 mmol/L (-2.0-2.0); Blood Gas Allen Test Pos; Blood Gas Sample Site Radial, right; Blood Gas Sample Type Arterial; Oxygen Device BIPAP; PO2 ABG 71.8 mmHg (80.0-100.0)
--- NOTE | 2021-05-18 04:46 | PC.NURSE ---
patient reported neuropathy in BLE, dr yeung notified, HCP to review chart and put in orders
[2021-05-18 04:50] LABS: NT Pro B Type Natriuretic Pept 476 pg/mL (0-125); Procalcitonin 0.06 ng/mL (0-0.5)
[2021-05-18 05:02] LABS: Creatine Phosphokinase 77 U/L (26-192)
[2021-05-18 05:26] LABS: Alanine Aminotransferase 15 U/L (0-33); Albumin Level 2.9 g/dL (3.5-5.2); Alkaline Phosphatase 72 IU/L (35-105); Anion Gap 15.6 (5-19); Aspartate Amino Transferase 25 U/L (0-32); Blood Urea Nitrogen 11 mg/dL (6-20); C Reactive Protein 14.8 mg/L (0.0-4.9); Calcium 8.2 mg/dL (8.5-10.5); Carbon Dioxide 29 mmol/L (22-29); Chloride 99 mmol/L (98-107); Globulin 3.2 g/dL (1.3-4.6); Glomerular Filtration Rate 164.5 mL/min (90-130); Glucose 140 mg/dL (65-115); Osmolality Calculated 290 mOsm/kg (285-295); Phosphorus 2.7 mg/dL (2.5-4.5); Potassium 4.6 mmol/L (3.5-5.1); Sodium 139 mmol/L (136-145); Total Bilirubin 0.3 mg/dL (0.15-1.2); Total Protein 6.1 g/dL (6.6-8.7)
--- NOTE | 2021-05-18 06:00 | ECG_ITS ---
[facility] Test Date: 2021-05-18 Pat Name: Maria Victoria New Department: Room: [facility]07 Gender: Female Tape Coater: : 1965 Requested By: Chris Marc Order Number: [id number] Reading MD: LB TORREZ Measurements Intervals [place] Rate: 66 P: -9 WI: 129 QRS: 24 QRSD: 102 T: 49 QT: 401 QTc: 422 Interpretive Statements SINUS RHYTHM NONSPECIFIC T-WAVE ABNORMALITY Compared to ECG 05/17/2021 09:54:06 No significant changes Electronically Signed On 05-18-2021 21:10:48 CDT by LB TORREZ [id number]
[2021-05-18] MEDS: levothyroxine 75 mcg Tablet PO (06:05)
[2021-05-18] MEDS: TRAMadol 50 mg Tablet PO ×2 (06:05→17:20)
[2021-05-18] MEDS: dexamethasone 10 mg/mL INJ 6 MG IVP (08:07)
[2021-05-18] MEDS: gabapentin 300 mg Capsule 600 MG PO (08:07)
[2021-05-18] MEDS: pantoprazole 40 mg SDV IVP ×2 (08:07→20:47)
[2021-05-18] MEDS: folic acid 1 mg Tablet PO (08:08)
[2021-05-18] MEDS: FUROsemide 10 mg/mL SDV 4mL 40 MG IVP (08:08)
[2021-05-18] MEDS: methadone 10 mg Tablet 50 MG PO (08:08)
[2021-05-18] MEDS: ascorbic acid 500 mg Tablet 1000 MG PO (08:08)
[2021-05-18] MEDS: cyanocobalamin 1,000 mcg Tablet 1000 MCG PO (08:08)
[2021-05-18] MEDS: cholecalciferol (vitamin D3) 1,000 unit Tablet 2000 UNIT PO (08:08)
[2021-05-18] MEDS: zinc gluconate 50 mg Tablet PO (08:08)
[2021-05-18] MEDS: midodrine 5 mg TABLET 10 MG PO ×3 (08:11→20:46)
[2021-05-18] MEDS: vancomycin 1,500 MG/300 ML PIGGYBACK 200 MG IV ×2 (09:35→20:48)
--- NOTE | 2021-05-18 11:43 | PC.SOCIAL ---
Pg 2 IMM Explained to pt's daughter Pg 2 IMM. No questions voiced. Provided pt care nurse a copy to give to pt. Initialed, dated, & timed a copy & placed in chart.
--- NOTE | 2021-05-18 13:47 | P.PN_ITS ---
Subjective Subjective: Interval history: Currently patient is the ICU, she is awaiting her bed in 2a, she complains of pain this morning, she continues to have burning in bilateral lower extremities, her shortness of breath has improved, she tells me the BiPAP does help, unfortunate she does not get much sleep overnight Vitals/I&O/Wt Last Vital Signs Temp 98.1 F 05/18/21 09:45 Pulse 61 05/18/21 13:46 Resp 18 05/18/21 12:00 BP 123/69 05/18/21 12:00 Pulse Ox 94 05/18/21 13:46 05/17/21 05/18/21 05/18/21 22:59 06:59 14:59 Intake Total 600 / 700 100 / 800 700 / 700 Output Total 800 / 800 600 / 1400 1600 / 1600 Balance -200 / -100 -500 / -600 -900 / -900 Physical Exam Const: COMMON NORMALS: no acute distress and patient oriented x3 Resp: COMMON NORMALS: normal respiratory effort, No retractions, No use of accessory muscles and clear to auscultation bilaterally AUSCULTATION: clear to auscultation bilaterally Cardio: COMMON NORMALS: regular rate, regular rhythm, S1 normal heart sound present and S2 normal heart sound present RATE: regular rate RHYTHM: regular rhythm HEART SOUNDS: S1 normal heart sound present and S2 normal heart sound present GI: COMMON NORMALS: Normal to inspection, nondistended, normoactive bowel sounds present, Soft to palpation and non-tender PALPATION: Yes Soft to palpation Extremity: COMMON NORMALS: no pedal edema Neuro: COMMON NORMALS: patient oriented x3 Psych: COMMON NORMALS: mental status grossly normal Urinary Catheter Management^: Lopez: Cath Placed During This Visit: yes Reason for Continuing Indwelling Catheter: Accurate Measurement of Urinary Output in Critically Ill Patients Urinary Catheter Date of Insertion: 05/15/21 Urinary Catheter Time of Insertion: 11:56 Data : 05/18/21 04:02 05/18/21 04:02 A&P Assessment and plan (1) Fall: Status: Acute Qualifiers: Encounter type: initial encounter Qualified Code(s): W19.XXXA - Unspecified fall, initial encounter (2) Pneumonia due to COVID-19 virus: Status: Acute (3) Respiratory failure: Status: Acute Qualifiers: Chronicity: acute Respiratory failure complication: hypoxia Qualified Code(s): J96.01 - Acute respiratory failure with hypoxia (4) Methadone dependence: Status: Chronic (5) Microcytic anemia: Status: Chronic (6) Hypothyroidism: Status: Chronic Qualifiers: Hypothyroidism type: acquired Qualified Code(s): E03.9 - Hypothyroidism, unspecified (7) Generalized anxiety disorder: Status: Chronic (8) Post-traumatic stress disorder, chronic: Status: Chronic (9) COVID-19 vaccine dose not administered: Status: Acute Additional A&P Information Acute hypoxic respiratory failure secondary COVID-19 pneumonia -CT angiogram of the chest unremarkable for pulmonary emboli, does show scattered nonspecific bilateral pulmonary groundglass lesions -Bilateral lower extremity venous ultrasounds negative for DVT -Echocardiogram shows an EF of 60%, normal diastolic dysfunction -Is -1 L Plan -We will move out of ICU to Covid unit -Can use high flow during the day wean as tolerated, BiPAP during the night 16/8, 40% FiO2 -Continue dexamethasone -Continue remdesivir -Continue broad-spectrum antibiotic therapy vancomycin, Primaxin, wean in the next 24 hours -Methadone dose reduced down to 50 mg will add an extra 5 mg in the afternoon, gabapentin increased to 800 3 times daily, Klonopin on hold -Has bradycardia, EKG no QT prolongation, monitor heart rates, treat if heart rate is less than 50 and she is symptomatic, possible etiology is remdesivir -Follow blood cultures, urine cultures, urine documentations, sputum cultures -Incentive spirometer, flutter valve, pulmonary toilet -Albuterol -Budesonide -Vitamin C, zinc, vitamin D - continue midodrine -Full code -SCDs for DVT prophylaxis, will try Lovenox for DVT prophylaxis Care History of Vance-en-Y gastric bypass, continue folic acid, B12, iron, Anxiety, hold Klonopin, continue Celexa Hypothyroidism, continue levothyroxine Methadone, continue methadone 50 mg daily questions, add an extra 5 mg in the afternoon Acute on chronic anemia, recently had an EGD without any significant findings, sigmoidoscopy was a poor quality study, does have evidence of iron deficiency anemia does have a history of Vance-en-Y gastric bypass, Hemoccult stool, Protonix 40 twice daily, monitor hemoglobin closely Plan for today, continue Decadron, remdesivir, broad-spectrum antibiotic therapy, transition to high flow, monitor hemoglobin, will moved to Covid unit Attestations 2 Medical Necessity Statement*: Patient requires hospitalization for acute respiratory failure secondary COVID-19 Coding Level of Care Code Acute Buckle Sewer Machine for Chg Fwd Diagnoses Fall W19.XXXA Encounter type: initial encounter Pneumonia due to COVID-19 virus U07.1; J12.82 Respiratory failure J96.01 Chronicity: acute Respiratory failure complication: hypoxia Methadone dependence F11.20 Microcytic anemia D50.9 Hypothyroidism E03.9 Hypothyroidism type: acquired Generalized anxiety disorder F41.1 Post-traumatic stress disorder, chronic F43.12 COVID-19 vaccine dose not administered Z28.9
[2021-05-18] MEDS: ondansetron 2 mg/ML SDV 2 mL 4 MG IVP (14:31)
[2021-05-18] MEDS: methadone 10 mg Tablet 5 MG PO (15:33)
[2021-05-18] MEDS: polyethylene glycol 3350 Pkt 17 gm PO (15:33)
[2021-05-18] MEDS: gabapentin 400 mg Capsule 800 MG PO ×2 (15:34→20:46)
[2021-05-18] MEDS: remdesivir 100 MG in sodium chloride 0.9% (100 ml) 100 ML IV (18:42)
[2021-05-18] MEDS: citalopram 20 mg Tablet PO (20:46)
[2021-05-19] VITALS (27 sets, daily range): BP systolic 92–138; BP diastolic 59–81; PULSE 50–86; RESP 14–28; TEMP 36.3–37.1; O2SAT 87–97
[2021-05-19] MEDS: TRAMadol 50 mg Tablet PO (02:38)
[2021-05-19] MEDS: acetaminophen 325 mg Tablet 650 MG PO ×2 (05:48→17:00)
--- NOTE | 2021-05-19 06:00 | ECG_ITS ---
[facility] Test Date: 2021-05-19 Pat Name: Maria Victoria New Department: Room: [facility]07 Gender: Female Legal Billing Specialist: ghazala : 1965 Requested By: Chris Marc Order Number: [id number] Reading MD: LB TORREZ Measurements Intervals [place] Rate: 66 P: 23 NV: 169 QRS: 26 QRSD: 96 T: 72 QT: 396 QTc: 418 Interpretive Statements SINUS RHYTHM NONSPECIFIC T-WAVE ABNORMALITY Compared to ECG 05/18/2021 08:38:00 No significant changes Electronically Signed On 05-19-2021 22:22:35 CDT by LB TORREZ [id number]
[2021-05-19 06:16] LABS: Hematocrit 29.9 % (37.0-47.0); Hemoglobin 8.8 g/dL (11.5-15.3); Lymphocytes # 0.8 10^3/uL (0.8-4.8); Mean Corpuscular HGB Conc 29.4 g/dL (30.0-36.0); Mean Corpuscular Hemoglobin 22.6 pg (28.0-34.0); Mean Corpuscular Volume 76.9 fl (81-99); Mean Platelet Volume 8.9 fL (7.4-10.4); Monocytes # 0.3 10^3/uL (0.2-0.9); Neutrophils # 3.27 10^3/uL (1.8-7.7); Neutrophils % 74.4 %; Nucleated Red Blood Cells % 0 %; Platelet Count 191 10^3/cmm (130-400); Red Blood Count 3.89 10^6/uL (4.1-5.3); Red Cell Distribution Width 17.5 % (12.1-15.1); White Blood Count 4.4 10^3/uL (4.0-10.0)
[2021-05-19] MEDS: levothyroxine 75 mcg Tablet PO (06:21)
[2021-05-19] MEDS: enoxaparin 40 mg/0.4 mL Syringe SUBCUT (06:21)
[2021-05-19 06:23] LABS: INR 1.11 (0.8-1.2)
[2021-05-19 06:30] LABS: Alanine Aminotransferase 12 U/L (0-33); Albumin Level 2.9 g/dL (3.5-5.2); Alkaline Phosphatase 69 IU/L (35-105); Anion Gap 10.1 (5-19); Aspartate Amino Transferase 19 U/L (0-32); Blood Urea Nitrogen 12 mg/dL (6-20); Calcium 8.5 mg/dL (8.5-10.5); Carbon Dioxide 32 mmol/L (22-29); Chloride 100 mmol/L (98-107); Globulin 3.7 g/dL (1.3-4.6); Glomerular Filtration Rate 229.3 mL/min (90-130); Glucose 107 mg/dL (65-115); Magnesium 1.9 mg/dL (1.7-2.3); Osmolality Calculated 286 mOsm/kg (285-295); Phosphorus 3.2 mg/dL (2.5-4.5); Potassium 4.1 mmol/L (3.5-5.1); Sodium 138 mmol/L (136-145); Total Bilirubin 0.4 mg/dL (0.15-1.2); Total Protein 6.6 g/dL (6.6-8.7)
[2021-05-19 06:43] LABS: NT Pro B Type Natriuretic Pept 312 pg/mL (0-125); Procalcitonin 0.05 ng/mL (0-0.5)
[2021-05-19 06:57] LABS: Creatine Phosphokinase 24 U/L (26-192)
[2021-05-19] MEDS: albuterol 8 gm MDI 2 PUFF INHALATION (08:30)
[2021-05-19] MEDS: gabapentin 400 mg Capsule 800 MG PO (08:57)
[2021-05-19] MEDS: pantoprazole 40 mg SDV IVP ×2 (08:57→21:04)
[2021-05-19] MEDS: zinc gluconate 50 mg Tablet PO (08:57)
[2021-05-19] MEDS: sennosides-docusate Tablet 1 TAB PO (08:58)
[2021-05-19] MEDS: cyanocobalamin 1,000 mcg Tablet 1000 MCG PO (08:58)
[2021-05-19] MEDS: cholecalciferol (vitamin D3) 1,000 unit Tablet 2000 UNIT PO (08:58)
[2021-05-19] MEDS: methadone 10 mg Tablet 50 MG PO (08:58)
[2021-05-19] MEDS: dexamethasone 10 mg/mL INJ 6 MG IVP (08:59)
[2021-05-19] MEDS: ascorbic acid 500 mg Tablet 1000 MG PO (08:59)
[2021-05-19] MEDS: folic acid 1 mg Tablet PO (08:59)
[2021-05-19] MEDS: vancomycin 1,500 MG/300 ML PIGGYBACK 200 MG IV ×2 (09:54→21:49)
[2021-05-19] MEDS: CLONazepam 0.5 mg Tablet 1 MG PO ×2 (09:54→18:06)
[2021-05-19] MEDS: midodrine 5 mg TABLET 10 MG PO ×2 (09:54→21:04)
--- NOTE | 2021-05-19 10:00 | PC.NURSE ---
This AM patient was restless in bed and said to this nurse, if you don't take this mask off me I will. I told patient I would have to call an RT in room and she took her mask off. This nurse attempted to put it back on patient and she refused.
--- NOTE | 2021-05-19 12:20 | P.PN_ITS ---
Subjective Subjective: Interval history: This morning patient was seen, she is quite anxious, she tells me she is in a lot of pain, she has burning sensation of bilateral lower extremities, she did not get any sleep overnight, when respiratory therapy tried to take off the BiPAP, she kept yelling that she could not get any air, was hyper respirating, was quite anxious Vitals/I&O/Wt Last Vital Signs Temp 98.1 F 05/18/21 09:45 Pulse 66 05/19/21 10:00 Resp 25 H 05/19/21 10:00 BP 122/71 05/19/21 10:00 Pulse Ox 94 05/19/21 10:00 05/18/21 05/19/21 05/19/21 22:59 06:59 14:59 Intake Total 500 / 1200 100 / 1300 100 / 100 Output Total 900 / 2500 Balance 500 / -400 -800 / -1200 100 / 100 Physical Exam Const: COMMON NORMALS: no acute distress and patient oriented x3 Resp: COMMON NORMALS: normal respiratory effort, No retractions, No use of accessory muscles and clear to auscultation bilaterally AUSCULTATION: clear to auscultation bilaterally Cardio: COMMON NORMALS: regular rate, regular rhythm, S1 normal heart sound present and S2 normal heart sound present RATE: regular rate RHYTHM: regular rhythm HEART SOUNDS: S1 normal heart sound present and S2 normal heart sound present GI: COMMON NORMALS: Normal to inspection, nondistended, normoactive bowel sounds present and Soft to palpation PALPATION: Yes Soft to palpation Extremity: COMMON NORMALS: no pedal edema Neuro: COMMON NORMALS: patient oriented x3 Psych: COMMON NORMALS: mental status grossly normal Urinary Catheter Management^: Lopez: Cath Placed During This Visit: yes Reason for Continuing Indwelling Catheter: Accurate Measurement of Urinary Output in Critically Ill Patients Urinary Catheter Date of Insertion: 05/15/21 Urinary Catheter Time of Insertion: 11:56 Data : 05/19/21 06:00 05/19/21 06:00 A&P Assessment and plan (1) Fall: Status: Acute Qualifiers: Encounter type: initial encounter Qualified Code(s): W19.XXXA - Unspecified fall, initial encounter (2) Pneumonia due to COVID-19 virus: Status: Acute (3) Respiratory failure: Status: Acute Qualifiers: Chronicity: acute Respiratory failure complication: hypoxia Qualified Code(s): J96.01 - Acute respiratory failure with hypoxia (4) Methadone dependence: Status: Chronic (5) Microcytic anemia: Status: Chronic (6) Hypothyroidism: Status: Chronic Qualifiers: Hypothyroidism type: acquired Qualified Code(s): E03.9 - Hypothyroidism, unspecified (7) Generalized anxiety disorder: Status: Chronic (8) Post-traumatic stress disorder, chronic: Status: Chronic (9) COVID-19 vaccine dose not administered: Status: Acute Additional A&P Information Acute hypoxic respiratory failure secondary COVID-19 pneumonia -CT angiogram of the chest unremarkable for pulmonary emboli, does show scattered nonspecific bilateral pulmonary groundglass lesions -Bilateral lower extremity venous ultrasounds negative for DVT -Echocardiogram shows an EF of 60%, normal diastolic dysfunction -Is -1 L Plan -We will move out of ICU to Covid unit -Can use high flow during the day wean as tolerated, BiPAP during the night 16/8, 40% FiO2 -However has severe anxiety, pain complaints, which is making difficulty weaning her off the BiPAP -Continue dexamethasone -Continue remdesivir -Continue continue vancomycin and Primaxin for now -Methadone dose reduced down to 50 mg will add an extra 10 mg in the afternoon, gabapentin increased to 900 3 times daily, restarted home Klonopin -Has bradycardia, EKG no QT prolongation, monitor heart rates, treat if heart rate is less than 50 and she is symptomatic, possible etiology is remdesivir -Follow blood cultures, urine cultures, urine documentations, sputum cultures -Incentive spirometer, flutter valve, pulmonary toilet -Albuterol -Budesonide -Vitamin C, zinc, vitamin D - continue midodrine -Full code -SCDs for DVT prophylaxis, will try Lovenox for DVT prophylaxis Care History of Vance-en-Y gastric bypass, continue folic acid, B12, iron, Anxiety, hold Klonopin, continue Celexa Hypothyroidism, continue levothyroxine Methadone, uses 70 mg at home, dose was reduced due to respiratory depression and confusion, continue methadone 50 mg daily questions, add a 10 mg in the afternoon Acute on chronic anemia, recently had an EGD without any significant findings, sigmoidoscopy was a poor quality study, does have evidence of iron deficiency anemia does have a history of Vance-en-Y gastric bypass, Hemoccult stool, Protonix 40 twice daily, monitor hemoglobin closely Plan for today, increase her methadone dose, increase her gabapentin dose, resume her clonidine, try to wean her off BiPAP, moved to Covid unit Attestations Medical Necessity Statement*: Patient requires hospitalization for acute respiratory failure sec to COVID-19 Coding Level of Care Code Acute Frame Repairer for Chg Fwd Diagnoses Fall W19.XXXA Encounter type: initial encounter Pneumonia due to COVID-19 virus U07.1; J12.82 Respiratory failure J96.01 Chronicity: acute Respiratory failure complication: hypoxia Methadone dependence F11.20 Microcytic anemia D50.9 Hypothyroidism E03.9 Hypothyroidism type: acquired Generalized anxiety disorder F41.1 Post-traumatic stress disorder, chronic F43.12 COVID-19 vaccine dose not administered Z28.9
[2021-05-19] MEDS: FUROsemide 10 mg/mL SDV 4mL 40 MG IVP (14:17)
--- NOTE | 2021-05-19 15:36 | PC.NURSE ---
This nurse attempted to give patient medications before she was transferred and patient refused. Medications disposed of. Patient was then taken to 2A. Tolerated well
[2021-05-19] MEDS: benzonatate 100 mg Capsule PO (17:01)
--- NOTE | 2021-05-19 17:16 | PC.RESP ---
RT Shift Note Frequent safety and respiratory rounds continue. Orders completed as indicated. Patient monitored pre and post treatments throughout shift. Patient tolerated treatments appropriately. Condition did not change Patient and/or customer engagement representative educated on respiratory treatment and medications. Patient and/or customer engagement representative verbalized understanding. Will continue to monitor patient progress.
[2021-05-19] MEDS: gabapentin 300 mg Capsule 900 MG PO (21:05)
[2021-05-19] MEDS: citalopram 20 mg Tablet PO (21:05)
[2021-05-19] MEDS: methadone 10 mg Tablet PO (23:29)
[2021-05-20] VITALS (60 sets, daily range): BP systolic 87–176; BP diastolic 57–101; PULSE 47–113; RESP 13–30; TEMP 35.8–37.2; O2SAT 78–100
[2021-05-20] MEDS: CLONazepam 1 mg Tablet PO (02:34)
[2021-05-20 05:10] LABS: ABG PCO2 46.7 mmHg (35-45); ABG PH Result 7.48 (7.35-7.45); Arterial Blood Gas Hematocrit 30.5 % (37-47); Base Excess ABG 10.4 mmol/L (-2.0-2.0); Blood Gas Sample Site Brachial, left; Blood Gas Sample Type Arterial; HCO3 ABG 35.1 mmol/L (22-26); PO2 ABG 61.8 mmHg (80.0-100.0)
[2021-05-20 05:11] LABS: Oxygen Device BIPAP
[2021-05-20] MEDS: levothyroxine 75 mcg Tablet PO (06:04)
[2021-05-20] MEDS: ibuprofen 200 mg Tablet 400 MG PO (06:04)
[2021-05-20] MEDS: enoxaparin 40 mg/0.4 mL Syringe SUBCUT (06:19)
--- NOTE | 2021-05-20 07:17 | PC.NURSE ---
Shift Note Frequent safety and comfort rounds continue. Orders and/or nursing care completed as indicated. Patient monitored for response to intervention and treatment(s). Education provided includes plan of care. Patient and/or claim service representative verbalized understanding. Will continue to monitor.
[2021-05-20 07:57] LABS: Basophils % 0.1 %; Eosinophils % 0.1 %; Hematocrit 34.4 % (37.0-47.0); Hemoglobin 10.3 g/dL (11.5-15.3); Lymphocytes # 1.3 10^3/uL (0.8-4.8); Lymphocytes % 17.8 %; Mean Corpuscular HGB Conc 29.9 g/dL (30.0-36.0); Mean Corpuscular Hemoglobin 23.3 pg (28.0-34.0); Mean Corpuscular Volume 77.8 fl (81-99); Mean Platelet Volume 9.5 fL (7.4-10.4); Monocytes # 0.5 10^3/uL (0.2-0.9); Monocytes % 6.4 %; Neutrophils # 5.16 10^3/uL (1.8-7.7); Neutrophils % 73.6 %; Nucleated Red Blood Cells % 0 %; Platelet Count 246 10^3/cmm (130-400); Red Blood Count 4.42 10^6/uL (4.1-5.3); Red Cell Distribution Width 17.3 % (12.1-15.1)
[2021-05-20 08:12] LABS: INR 1.09 (0.8-1.2)
[2021-05-20 08:26] LABS: Alanine Aminotransferase 12 U/L (0-33); Albumin Level 3.3 g/dL (3.5-5.2); Alkaline Phosphatase 81 IU/L (35-105); Anion Gap 10.8 (5-19); Aspartate Amino Transferase 21 U/L (0-32); Blood Urea Nitrogen 15 mg/dL (6-20); C Reactive Protein 11.5 mg/L (0.0-4.9); Calcium 8.8 mg/dL (8.5-10.5); Carbon Dioxide 34 mmol/L (22-29); Chloride 96 mmol/L (98-107); Glomerular Filtration Rate 164.5 mL/min (90-130); Glucose 85 mg/dL (65-115); Magnesium 2.2 mg/dL (1.7-2.3); Osmolality Calculated 284 mOsm/kg (285-295); Phosphorus 3.4 mg/dL (2.5-4.5); Potassium 3.8 mmol/L (3.5-5.1); Sodium 137 mmol/L (136-145); Total Bilirubin 0.4 mg/dL (0.15-1.2); Total Protein 7.3 g/dL (6.6-8.7)
[2021-05-20] MEDS: gabapentin 300 mg Capsule 900 MG PO ×3 (08:26→20:48)
[2021-05-20] MEDS: polyethylene glycol 3350 Pkt 17 gm PO (08:26)
[2021-05-20] MEDS: sennosides-docusate Tablet 1 TAB PO (08:27)
[2021-05-20] MEDS: ascorbic acid 500 mg Tablet 1000 MG PO ×2 (08:27→17:23)
[2021-05-20] MEDS: cholecalciferol (vitamin D3) 1,000 unit Tablet 2000 UNIT PO (08:27)
[2021-05-20] MEDS: methadone 10 mg Tablet 50 MG PO (08:27)
[2021-05-20] MEDS: cyanocobalamin 1,000 mcg Tablet 1000 MCG PO (08:27)
[2021-05-20] MEDS: zinc gluconate 50 mg Tablet PO (08:27)
[2021-05-20] MEDS: folic acid 1 mg Tablet PO (08:28)
[2021-05-20] MEDS: dexamethasone 10 mg/mL INJ 6 MG IVP (08:28)
[2021-05-20] MEDS: pantoprazole 40 mg SDV IVP ×2 (08:28→20:49)
[2021-05-20 08:58] LABS: NT Pro B Type Natriuretic Pept 210 pg/mL (0-125); Procalcitonin 0.06 ng/mL (0-0.5)
[2021-05-20 09:10] LABS: Creatine Phosphokinase 21 U/L (26-192)
[2021-05-20] MEDS: midodrine 5 mg TABLET 10 MG PO ×3 (09:15→20:48)
[2021-05-20] MEDS: vancomycin 1,500 MG/300 ML PIGGYBACK 200 MG IV ×2 (09:15→20:49)
--- NOTE | 2021-05-20 09:38 | PC.NURSE ---
BIPAP removed quickly for morning medication administration, oxygen saturation decreased to 60% within seconds, returned BIPAP notified RT, RT to room, Oxygen saturation currently 84%, RT remaining at bedside until patient recovers.
--- NOTE | 2021-05-20 10:01 | PC.NURSE ---
Spoke to daughter on phone and made a plan for patient to listen to daughter on phone later today but due to oxygen saturation unable to maintain without BIPAP patient will not be able to speak. Daughter and patient in agreement with plan and appreciative.
--- NOTE | 2021-05-20 10:33 | PC.SOCIAL ---
IMM Update Pg. 2of IMM updated and reviewed with patient's daughter over the phone, verbalized understanding. Copy provided to patient as well.
--- NOTE | 2021-05-20 11:02 | PC.NURSE ---
Dr. Marc aware of last BM reported per patient, Several weeks ago. Patient currently on mirilax scheduled.
--- NOTE | 2021-05-20 11:42 | XR_ITS ---
WS: [id number] Exam: XR chest 1V portable [id number] Date/Time of Exam: 05/20/2021 11:42 AM Reason For Exam: decreasing o2 sat Comparison 05/17/2021. Widespread bilateral pulmonary infiltrates show little change since the last exam. Extensive subcutan eous emphysema is identified over the bilateral chest and neck. There is also probable pneumomediasti num. A right-sided PICC line ends in the expected region of the lower third of the SVC. Heart size is normal. The mediastinum is not widened. No pleural effusion or pneumothorax. XR/XR chest 1V portable [id number] IMPRESSION: 1. Widespread bilateral pulmonary infiltrates showing no significant change. 2. Development of extensive subcutaneous emphysema over the bilateral chest and neck. There is also pneumomediastinum. 3. Right-sided PICC line appearing to be in satisfactory location.
[2021-05-20] MEDS: sodium chloride 0.9% 500 ML IV (11:56)
[2021-05-20] MEDS: FUROsemide 10 mg/mL SDV 4mL 40 MG IVP (12:05)
--- NOTE | 2021-05-20 12:07 | PC.NURSE ---
Patient oxygen saturation down to 78% on 100% BIPAP, this nurse to room placed in high fowlers, oxygen saturation 84-89%, Dr. Marc notified in to see patient, new order for lasix see MAR for further details, STAT chest X-RAY, RT notified, supervisor fiberglass boat assembly in room with this nurse and patient, awaiting for anesthesia for intubation per Dr. Cantu orders.
--- NOTE | 2021-05-20 12:17 | PC.NURSE ---
Patients daughter called and informed of change in plan of care and allowed to speak to patient on the phone.
[2021-05-20] MEDS: cisatracurium 100 MG in sodium chloride 0.9% 50 ML IV (13:20)
--- NOTE | 2021-05-20 13:29 | XR_ITS ---
WS: [id number] Exam: XR chest 1V portable [id number] Date/Time of Exam: 05/20/2021 1:29 PM Reason For Exam: intubation Comparison with previous study performed on the same day at 1158 hours. An ET tube has been placed and ends about 4 cm above the emily in satisfactory position. A right IJ catheter has been placed and ends in the lower one third of the SVC. Slightly increased bilateral sub cutaneous emphysema involving the chest and neck. Diffuse infiltrates in both lungs unchanged. Heart size is normal. No pleural effusions. Pneumomediastinum. XR/XR chest 1V portable [id number] IMPRESSION: 1. ET tube and right IJ catheter both appearing to be in satisfactory position. 2. Extensive subcutaneous emphysema over the chest and neck slightly increased when compared to prior study. 3. Diffuse bilateral pulmonary infiltrates unchanged. 4. Right-sided PICC line again noted which ends in the lower one third of the S VC.
--- NOTE | 2021-05-20 13:31 | PC.NURSE ---
1230 anesthesia provider in room Time out completed per documentation 1233 patient intubated by Anesthesia 21 at the lip, 8 tube,
--- NOTE | 2021-05-20 13:52 | PC.NURSE ---
1240 central line placed using sterile technique by Dr. Wu, see anesthesia documentation.
--- NOTE | 2021-05-20 14:01 | P.ANES_ITS ---
Anesthesia Procedures Procedure/Date: 05/20/21 Arterial Line: Time Out Performed: Yes Consent: requested by attending/covering physician, risks and benefits reviewed and patient agrees to proceed Size (Gauge): 20 Technique Used: guide wire technique Post- Procedure: dry sterile dressing placed Patient Tolerated Procedure: other (hematoma left wrist) Site: left Additional Comments: Attempted several times in left and right radial arteries, ultimately successful in left radial. Intubation: Time Out Performed: Yes Consent: requested by attending/covering physician, from patient, risks and benefits reviewed and patient agrees to proceed Sedative (amount): other (Propofol 200mg, lidocaine 100mg) Paralytic (amount): rocuronium (50mg) Laryngoscope: Thomas (3) ET Tube Size: 8 ET Tube Uncuffed: Yes Tube Secured Depth (cm): 21 Tube Secured Location: lips Tube Placement Confirmation: equal breath sounds bilaterally, confirmation by capnometry and color change noted Patient Tolerated Procedure: well Intubation Complications: none Central Venous Insert: Central Venous Line: 7fr. 3-lumen 20cm Time Out Performed: Yes Consent: requested by attending/covering physician, risks and benefits reviewed and patient agrees to proceed Central Line: New Anesthesia monitors: pulse oximetry, EKG, BP cuff and oxygen Vein cannulated: right internal jugular Post procedure: Obtain Chest X-Ray Additional Comments: Seldinger technique with seeker needle. Prepped, drape, gown, gloves. Sutured in place and sterile dressing.
--- NOTE | 2021-05-20 14:14 | PC.NURSE ---
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
--- NOTE | 2021-05-20 14:40 | P.PN_ITS ---
Subjective Subjective: Interval history: This morning patient was seen, she is on BiPAP, 100% FiO2, she tells me she is short of breath, no fevers, chills, no nausea, no vomiting, no chest pain, Early in the afternoon, patient developed episodes of shortness of breath, desaturation to the low 70s, she was repositioned, and came up and saw her, she is on 100% FiO2, had evidence of mild respiratory distress, with desaturations of oxygen saturations into the low 80s, I advised patient that she likely has severe acute respiratory distress syndrome, and I would advise for intubation, she is a full code, I confirmed that she is a full code, she is agreeable to intubation Patient was electively intubated by anesthesia team for acute respiratory distress syndrome secondary to COVID-19, increasing oxygen requirements, placed on sedation, paralytics, art line placed, central line placed, will be moved out of ICU I spoke to patient's daughter, Sheeba, updated her of her mother's critical status, prognosis is guarded, Sheeba also has a sister, I have advised Sheeba to leave her number so I can also update her other sister Vitals/I&O/Wt Last Vital Signs Temp 98.5 F 05/20/21 13:57 Pulse 74 05/20/21 13:57 Resp 19 H 05/20/21 13:57 BP 153/90 05/20/21 13:57 Pulse Ox 89 L 05/20/21 13:57 05/19/21 05/20/21 05/20/21 22:59 06:59 14:59 Intake Total 530 / 630 400 / 1030 654.984 / 654.984 Output Total 1999 700 / 2700 675 / 675 Balance -1470 / -1370 -300 / -1670 -20.016 / -20.016 Physical Exam Const: COMMON NORMALS: patient oriented x3 GENERAL APPEARANCE: ill appearing and frail appearing Chest: COMMONS NORMALS: normal inspection of the chest Resp: EFFORT & INSPECTION: Yes tachypneic and Yes respiratory distress AUSCULTATION: diminished lung sounds diffuse Cardio: COMMON NORMALS: regular rhythm, S1 normal heart sound present and S2 normal heart sound present RATE: tachycardic RHYTHM: regular rhythm HEART SOUNDS: S1 normal heart sound present and S2 normal heart sound present GI: COMMON NORMALS: Normal to inspection, nondistended, normoactive bowel sounds present, Soft to palpation and non-tender PALPATION: Yes Soft to palpation Extremity: COMMON NORMALS: no pedal edema Neuro: COMMON NORMALS: patient oriented x3 Urinary Catheter Management^: Lopez: Cath Placed During This Visit: yes Reason for Continuing Indwelling Catheter: Accurate Measurement of Urinary Output in Critically Ill Patients Urinary Catheter Date of Insertion: 05/15/21 Urinary Catheter Time of Insertion: 11:56 Data : 05/20/21 06:47 05/20/21 06:47 Micro: Microbiology 05/14/21 20:32 Blood Culture - Final Blood NO GROWTH AFTER 5 DAYS 05/14/21 20:47 Blood Culture - Final Blood NO GROWTH AFTER 5 DAYS A&P Assessment and plan (1) Acute respiratory distress syndrome (ARDS) due to COVID-19 virus: Status: Acute (2) Fall: Status: Inactive Qualifiers: Encounter type: initial encounter Qualified Code(s): W19.XXXA - U nspecified fall, initial encounter (3) Pneumonia due to COVID-19 virus: Status: Acute (4) Respiratory failure: Status: Acute Qualifiers: Chronicity: acute Respiratory failure complication: hypoxia Qualified Code(s): J96.01 - Acute respiratory failure with hypoxia (5) Methadone dependence: Status: Chronic (6) Microcytic anemia: Status: Chronic (7) Hypothyroidism: Status: Chronic Qualifiers: Hypothyroidism type: acquired Qualified Code(s): E03.9 - Hypothyroidism, unspecified (8) Generalized anxiety disorder: Status: Chronic (9) Post-traumatic stress disorder, chronic: Status: Chronic (10) COVID-19 vaccine dose not administered: Status: Acute Additional A&P Information Acute hypoxic respiratory failure secondary COVID-19 pneumonia and acute respiratory distress syndrome -CT angiogram of the chest unremarkable for pulmonary emboli, does show scattered nonspecific bilateral pulmonary groundglass lesions -Bilateral lower extremity venous ultrasounds negative for DVT -Echocardiogram shows an EF of 60%, normal diastolic dysfunction Plan -We will move patient to ICU -Intubated 05/20/2021 -Intubated, mechanically ventilated, minimize FiO2, minimize tidal volume optimize PEEP -Propofol, fentanyl, Versed for sedation -Nimbex paralytic -Prone for 16 hours -Can start trickle feedings when supine -Levophed as needed, maintain MAP in the 65 -Continue dexamethasone -Continue finished remdesivir -1 dose Actemra 05/20/2021 -Continue continue vancomycin and Primaxin and add Levaquin -Hold methadone Continue gabapentin -History of bradycardia, normal QT interval, possibly secondary to remdesivir -Repeat blood cultures, urine cultures, sputum cultures, fungal studies -Albuterol -Budesonide -Vitamin C, zinc, vitamin D - continue midodrine -Full code -SCDs for DVT prophylaxis, Lovenox for DVT prophylaxis -Status is critical, prognosis is guarded -Given patient's young age, she is a candidate for ECMO, however all ECMO facilities in the [facility] are full, have long wait list, can try in the near future Care History of Vance-en-Y gastric bypass, continue folic acid, B12, iron, Anxiety, hold Klonopin, continue Celexa Hypothyroidism, continue levothyroxine Hold methadone methadone, uses 70 mg at home Acute on chronic anemia, recently had an EGD without any significant findings, sigmoidoscopy was a poor quality study, does have evidence of iron deficiency anemia does have a history of Vance-en-Y gastric bypass, Hemoccult stool, Protonix 40 twice daily, monitor hemoglobin closely Plan for today, intubated, sedated, paralytic, start prone position, moved down to ICU, brought antibiotic coverage, repeat cultures, start Actemra Attestations Medical Necessity Statement*: Patient requires hospitalization for acute respiratory distress syndrome secondary to COVID-19, requiring intubation, conical ventilation, movement to ICU Procedures Arterial Line Size (Gauge): 20 Coding Level of Care Code Acute [employer] for [facility] Diagnoses Acute respiratory distress syndrome (ARDS) due to COVID-19 virus U07.1; J80 Fall W19.XXXA Encounter type: initial encounter Pneumonia due to COVID-19 virus U07.1; J12.82 Respiratory failure J96.01 Chronicity: acute Respiratory failure complication: hypoxia Methadone dependence F11.20 Microcytic anemia D50.9 Hypothyroidism E03.9 Hypothyroidism type: acquired Generalized anxiety disorder F41.1 Post-traumatic stress disorder, chronic F43.12 COVID-19 vaccine dose not administered Z28.9
--- NOTE | 2021-05-20 15:15 | XR_ITS ---
WS: [id number] PORTABLE CHEST HISTORY: OGT placement COMPARISON: 05/20/2021 Interval placement of an orogastric tube. Tip is at the GE junction and the proximal port is in the d istal esophagus. Endotracheal tube remains in good position. RIGHT IJ line in good position. There is additional PICC line introduced through the RIGHT upper extremity with tip in the mid SVC. Scattered opacifications. There is extensive subcutaneous emphysema over both lungs. Emphysema extend s into the neck. Small LEFT pleural effusion. Cardiac size: Normal. Mediastinum/Aorta: Normal mediastinum. No osseous abnormality seen. XR/XR chest 1V portable [id number] IMPRESSION: 1. Tip of the nasogastric tube terminates in the distal esophagus and needs to be advanced 15 cm for more optimal positioning. 2. Endotracheal tube in good position. 3. Extensive subcutaneous emphysema. No pneumothorax identified.
--- NOTE | 2021-05-20 15:20 | PC.NUTR ---
Nutrition note: PO intake of Pt was 7% of recorded meals since admission. Per MD notes and orders in EMR, mechanical ventilation started on 05/20. If/ when medically appropriate for patient and if consistant with goal of care, recommend consideration of TF - Jevity 1.2, starting @ 10 mls/hr, increase by 10 ml/hr q 8 hrs as tolerated until goal rate of 50 ml/hr, with water flushes of 120 ml q 4 hrs. Goal rate of 50 ml/hr will provide 1440 kcals or 83% of calculated calorie needs and 66 grams of protein or 100% of calculated protein needs and 1688 (968 + 720WF) ml H2O.
[2021-05-20] MEDS: levofloxacin-dextrose 5 % 750 MG/150 ML PREMIX 100 MG IV (16:10)
[2021-05-20] MEDS: propofol 1,000 MG/100 ML INJ 5.44 MG IV (16:38)
--- NOTE | 2021-05-20 17:00 | PC.OT ---
Patient intubated, occupational therapy treatment with held.
--- NOTE | 2021-05-20 18:02 | PC.NURSE ---
Shift Note Frequent safety and comfort rounds continue. Orders and nursing care completed as indicated. Pt on ventilator with vent settings as listed: Mode: CMV, FiO2:80%, VT: 400, RR: 18, PEEP: 12. IV mediations currently being administered: Fentanyl: 10mcg/hour, Versed: 2mg/hour, Nimbex: 1.8mcg/kg/min, Propofol: 20mcg/kg/min. -Orders to stop Versed and keep patient on Propofol. Current ABX Pt recieving: Levaquin Primaxin Vancomycin Tocilizumab(one dose) Pt proned at 1730 this evening with assistance of RT and other ICU staff members per physician's orders. Pt had 1,100ml out in urine this evening. Patient monitored for response to intervention and treatments. Unable to educate patient at this time, patient currently sedated and ventilated. Family called and updated on pt status after pt transfer to unit this afternoon. Will continue to monitor.
--- NOTE | 2021-05-20 18:20 | PC.NURSE ---
BIS AND TOF SINCE PT TRANSFERRED FROM UNIT 2A AT 1500 BIS TOF 1500 40 4 1600 32 2 1700 50 3 1800 45 3
[2021-05-20] MEDS: citalopram 20 mg Tablet PO (20:49)
[2021-05-20] MEDS: cisatracurium 100 MG in sodium chloride 0.9% 50 ML 9.8 MG IV (23:34)
[2021-05-21] VITALS (56 sets, daily range): BP systolic 84–138; BP diastolic 49–108; PULSE 51–99; RESP 18–23; TEMP 35.9–36.5; O2SAT 88–97
[2021-05-21] MEDS: propofol 1,000 MG/100 ML INJ 13.61 MG IV (00:46)
[2021-05-21 03:41] LABS: ABG PH Result 7.39 (7.35-7.45); Arterial Blood Gas Hematocrit 39.1 % (37-47); Base Excess ABG 7.9 mmol/L (-2.0-2.0); Blood Gas Operator Identificat JB; Blood Gas Sample Type Arterial; HCO3 ABG 34.8 mmol/L (22-26); Oxygen Device VENT
[2021-05-21 03:57] LABS: Basophils % 0.2 %; Eosinophils % 0.2 %; Hematocrit 30.9 % (37.0-47.0); Hemoglobin 9.1 g/dL (11.5-15.3); Lymphocytes # 0.7 10^3/uL (0.8-4.8); Lymphocytes % 16.8 %; Mean Corpuscular HGB Conc 29.4 g/dL (30.0-36.0); Mean Corpuscular Hemoglobin 22.9 pg (28.0-34.0); Mean Corpuscular Volume 77.8 fl (81-99); Mean Platelet Volume 9.3 fL (7.4-10.4); Monocytes # 0.3 10^3/uL (0.2-0.9); Monocytes % 5.9 %; Neutrophils # 3.07 10^3/uL (1.8-7.7); Neutrophils % 72.9 %; Nucleated Red Blood Cells % 0 %; Platelet Count 248 10^3/cmm (130-400); Red Blood Count 3.97 10^6/uL (4.1-5.3); Red Cell Distribution Width 17.2 % (12.1-15.1); White Blood Count 4.2 10^3/uL (4.0-10.0)
[2021-05-21 04:45] LABS: INR 1.19 (0.8-1.2)
[2021-05-21 04:58] LABS: Alanine Aminotransferase 9 U/L (0-33); Albumin Level 2.9 g/dL (3.5-5.2); Alkaline Phosphatase 75 IU/L (35-105); Anion Gap 13.1 (5-19); Aspartate Amino Transferase 13 U/L (0-32); Blood Urea Nitrogen 13 mg/dL (6-20); C Reactive Protein 26.2 mg/L (0.0-4.9); Calcium 8.6 mg/dL (8.5-10.5); Carbon Dioxide 31 mmol/L (22-29); Chloride 98 mmol/L (98-107); Globulin 3.8 g/dL (1.3-4.6); Glomerular Filtration Rate 229.3 mL/min (90-130); Glucose 91 mg/dL (65-115); Osmolality Calculated 286 mOsm/kg (285-295); Phosphorus 3.6 mg/dL (2.5-4.5); Potassium 4.1 mmol/L (3.5-5.1); Sodium 138 mmol/L (136-145); Total Bilirubin 0.4 mg/dL (0.15-1.2); Total Protein 6.7 g/dL (6.6-8.7)
[2021-05-21 05:04] LABS: NT Pro B Type Natriuretic Pept 154 pg/mL (0-125); Procalcitonin 0.07 ng/mL (0-0.5)
[2021-05-21 05:15] LABS: Creatine Phosphokinase 14 U/L (26-192)
[2021-05-21] MEDS: levothyroxine 75 mcg Tablet PO (05:39)
--- NOTE | 2021-05-21 06:14 | PC.NURSE ---
Patient remained stable throughout shift. Able to wean versed to 0 at around 2200. No increase in oxygen demands. Patient stayed in prone position (1), scheduled to turn supine at 0930. Vital signs stable throughout shift, levophed on hold throughout shift. BIS and TOF observed Q2. 2000: TOF: 2/4, BIS: 32 2200: TOF: 3/4, BIS: 46 0000: TOF: 3/4, BIS: 43 0200: TOF: 3/4, BIS: 44 0400: TOF: 3/4, BIS: 38 0600: TOF: 3/4, BIS: 34
[2021-05-21] MEDS: propofol 1,000 MG/100 ML INJ 16.33 MG IV ×2 (06:34→11:54)
[2021-05-21] MEDS: dexamethasone 10 mg/mL INJ 6 MG IVP (07:27)
[2021-05-21] MEDS: enoxaparin 40 mg/0.4 mL Syringe SUBCUT (07:28)
[2021-05-21] MEDS: sennosides-docusate Tablet 1 TAB PO (07:29)
[2021-05-21] MEDS: pantoprazole 40 mg SDV IVP ×2 (07:29→22:29)
[2021-05-21] MEDS: cholecalciferol (vitamin D3) 1,000 unit Tablet 2000 UNIT PO (07:29)
[2021-05-21] MEDS: zinc gluconate 50 mg Tablet PO (07:29)
[2021-05-21] MEDS: ascorbic acid 500 mg Tablet 1000 MG PO ×2 (07:30→17:03)
[2021-05-21] MEDS: cyanocobalamin 1,000 mcg Tablet 1000 MCG PO (07:30)
[2021-05-21] MEDS: gabapentin 300 mg Capsule 900 MG PO ×2 (07:30→14:13)
[2021-05-21] MEDS: midodrine 5 mg TABLET 10 MG PO ×2 (07:30→14:13)
[2021-05-21] MEDS: folic acid 1 mg Tablet PO (07:31)
[2021-05-21] MEDS: vancomycin 1,500 MG/300 ML PIGGYBACK 200 MG IV ×2 (08:53→22:29)
[2021-05-21] MEDS: cisatracurium 100 MG in sodium chloride 0.9% 50 ML 9.8 MG IV (09:46)
[2021-05-21 10:02] LABS: Vancomycin Trough 17.5 ug/mL (10-15)
[2021-05-21] MEDS: levofloxacin-dextrose 5 % 750 MG/150 ML PREMIX 100 MG IV (13:11)
--- NOTE | 2021-05-21 14:23 | PM.PN ---
Subjective Subjective: Interval history: Patient was seen this morning, she is intubated, sedated on paralytics, afebrile overnight, normotensive, good urine output, has good urine output Vitals/I&O/Wt Last Vital Signs Temp 97.7 F 05/21/21 04:00 Pulse 74 05/21/21 13:36 Resp 18 05/21/21 12:00 BP 100/61 05/21/21 12:00 Pulse Ox 92 05/21/21 12:00 05/20/21 05/21/21 05/21/21 22:59 06:59 14:59 Intake Total 860.712 / 1515.696 465.599 / 1981.295 711.716 / 711.716 Output Total 1100 / 1775 650 / 2425 Balance -239.288 / -259.304 -184.401 / -443.705 711.716 / 711.716 Physical Exam Const: COMMON NORMALS: no acute distress OTHER: Intubated, sedated, prone Resp: COMMON NORMALS: normal respiratory effort, No retractions, No use of accessory muscles and clear to auscultation bilaterally AUSCULTATION: clear to auscultation bilaterally Cardio: COMMON NORMALS: regular rate, regular rhythm, S1 normal heart sound present and S2 normal heart sound present RATE: regular rate RHYTHM: regular rhythm HEART SOUNDS: S1 normal heart sound present and S2 normal heart sound present GI: COMMON NORMALS: Normal to inspection, nondistended, normoactive bowel sounds present, Soft to palpation and non-tender PALPATION: Yes Soft to palpation Extremity: COMMON NORMALS: no pedal edema Urinary Catheter Management^: Lopez: Cath Placed During This Visit: yes Reason for Continuing Indwelling Catheter: Accurate Measurement of Urinary Output in Critically Ill Patients Urinary Catheter Date of Insertion: 05/15/21 Urinary Catheter Time of Insertion: 11:56 Data : 05/21/21 03:23 05/21/21 03:23 Micro: Microbiology 05/20/21 18:25 MRSA Culture - Final Nose 05/20/21 18:25 Bacterial Antigens - Final Urine Kidney 05/20/21 15:58 Blood Culture - Preliminary Blood SPECIMEN COLLECTED 05/20/21 15:50 Blood Culture - Preliminary Blood SPECIMEN COLLECTED A&P Assessment and plan (1) Acute respiratory distress syndrome (ARDS) due to COVID-19 virus: Status: Acute (2) Fall: Status: Inactive Qualifiers: Encounter type: initial encounter Qualified Code(s): W19.XXXA - Unspecified fall, initial encounter (3) Pneumonia due to COVID-19 virus: Status: Acute (4) Respiratory failure: Status: Acute Qualifiers: Chronicity: acute Respiratory failure complication: hypoxia Qualified Code(s): J96.01 - Acute respiratory failure with hypoxia (5) Methadone dependence: Status: Chronic (6) Microcytic anemia: Status: Chronic (7) Hypothyroidism: Status: Chronic Qualifiers: Hypothyroidism type: acquired Qualified Code(s): E03.9 - Hypothyroidism, unspecified (8) Generalized anxiety disorder: Status: Chronic (9) Post-traumatic stress disorder, chronic: Status: Chronic (10) COVID-19 vaccine dose not administered: Status: Acute Additional A&P Information Acute hypoxic respiratory failure secondary COVID-19 pneumonia and acute respiratory distress syndrome -CT angiogram of the chest unremarkable for pulmonary emboli, does show scattered nonspecific bilateral pulmonary groundglass lesions -Bilateral lower extremity venous ultrasounds negative for DVT -Echocardiogram shows an EF of 60%, normal diastolic dysfunction Plan -Currently in ICU -Intubated 05/20/2021 -Intubated, mechanically ventilated, minimize FiO2, minimize tidal volume optimize PEEP -ABG pH 7.39, PCO2 50, PO2 125, on 70% FiO2, tidal volume 500, PEEP of 12, tidal volume decreased to 450 -Is -2.7 L, hold off Lasix therapy -Propofol, fentanyl, Versed for sedation -Currently prone -Nimbex paralytic -Prone for 16 hours -Supine for 8 hours, Nimbex off, Can start trickle feedings when supine -Levophed as needed, maintain MAP in the 65 -Continue dexamethasone -Continue finished remdesivir -1 dose Actemra 05/20/2021 -Continue continue vancomycin and Primaxin and Levaquin -Hold methadone -Continue gabapentin -History of bradycardia, normal QT interval, possibly secondary to remdesivir -Repeat blood cultures, urine cultures, sputum cultures, fungal studies -Albuterol -Budesonide -Vitamin C, zinc, vitamin D - continue midodrine -Full code -SCDs for DVT prophylaxis, Lovenox for DVT prophylaxis -Status is critical, prognosis is guarded -Given patient's young age, she is a candidate for ECMO, will consider based on clinical progress Care History of Vance-en-Y gastric bypass, continue folic acid, B12, iron, Anxiety, hold Klonopin, continue Celexa Hypothyroidism, continue levothyroxine Hold methadone methadone, uses 70 mg at home Acute on chronic anemia, recently had an EGD without any significant findings, sigmoidoscopy was a poor quality study, does have evidence of iron deficiency anemia does have a history of Vance-en-Y gastric bypass, Hemoccult stool, Protonix 40 twice daily, monitor hemoglobin closely Plan for today, intubated, sedated, paralytic, start prone position, moved down to ICU, brought antibiotic coverage, repeat cultures, start Actemra Attestations Medical Necessity Statement*: Patient requires hospitalization for acute respiratory failure secondary to COVID-19 pneumonia Procedures Arterial Line Size (Gauge): 20 Coding Level of Care Code 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
[2021-05-21] MEDS: propofol 1,000 MG/100 ML INJ 21.77 MG IV (16:22)
--- NOTE | 2021-05-21 16:41 | ECG_ITS ---
[facility] Test Date: 2021-07-30 Pat Name: Maria Victoria New Department: Room: ICU01 Gender: Female Research Study Assistant: : 1965 Requested By: Chris Marc Order Number: [id number] Sravanthi MD: Christopher Haney M.D. Measurements Intervals [place] Rate: 110 P: 18 MT: 149 QRS: -5 QRSD: 93 T: 72 QT: 345 QTc: 467 Interpretive Statements SINUS TACHYCARDIA LEFT VENTRICULAR HYPERTROPHY AND ST-T CHANGE [VOLTAGE CRITERIA PLUS ST/T ABNORMALITY] POSSIBLE SEPTAL MYOCARDIAL INFARCTION , PROBABLY OLD [30 ms Q WAVE IN V1/V2] Compared to ECG 05/24/2021 05:29:47 ST (T wave) deviation now present Sinus rhythm no longer present Myocardial infarct finding still present Electronically Signed On 07-31-2021 21:55:42 ENGINE MECHANIC by Christopher Haney M.D. [id number]
--- NOTE | 2021-05-21 17:26 | PC.NURSE ---
BIS TOF 0700 40 0 0800 36 2 0900 34 1 1000 38 2 1100 35 1 1200 45 3 1300 42 2 NIMBEX TURNED OFF AFTER PATIENT WAS TURNED SUPINE, TUBE FEEDING STARTED.
--- NOTE | 2021-05-21 17:30 | PC.NURSE ---
Shift Note Frequent safety and comfort rounds continue. Orders and nursing care completed as indicated. Patient turned supine at 1200 with the help of RT and ICU staff. Nimbex titrated off to protocol. Tube Feedings started per physician order, see order. Patient tolerating well. Pt HR decreased down into the 50s this evening, Dr. Marc notified. Orders to d/c gabapentin, get EKG, TSH, and Tropinin series. I V medications currently being administered: Fentanyl= 10mcg/hr Propofol=30mcg Vent Settings currently: MODE:CMV FI02:60% VT:400 RR:18 PEEP:12 Patient monitored for response to intervention and treatments. Patient tube feedings stopped, Nimbex restarted, and proned at 2000 tonight. Unable to educate patient due to patient being sedated and ventilated. Family updated on patient status and verbalized understanding. Will continue to monitor.
[2021-05-21 17:40] LABS: Troponin(5th) Baseline 9 ng/L (0-10)
[2021-05-21 17:48] LABS: Thyroid Stimulating Hormone 1.32 uIU/mL (0.27-4.20)
--- NOTE | 2021-05-21 18:41 | ECG_ITS ---
[facility] Test Date: 2021-05-21 Pat Name: Maria Victoria New Department: Room: 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 Measurements Intervals [place] Rate: 69 P: 25 OR: 158 QRS: 28 QRSD: 93 T: 59 QT: 425 QTc: 456 Interpretive Statements SINUS RHYTHM Compared to ECG 05/19/2021 05:01:44 T-wave abnormality no longer present Electronically Signed On 05-21-2021 22:06:34 CDT by Christopher Haney M.D. [id number]
[2021-05-21 19:56] LABS: Troponin 5 2HR 12.02 ng/L (0-10); Troponin 5 2HR Delta 3.02 ABS# (0-10)
--- NOTE | 2021-05-21 22:41 | ECG_ITS ---
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 Measurements Intervals [place] Rate: 76 P: 34 WV: 157 QRS: 35 QRSD: 92 T: 75 QT: 402 QTc: 454 Interpretive Statements SINUS RHYTHM NONSPECIFIC T-WAVE ABNORMALITY Compared to ECG 05/21/2021 16:56:20 T-wave abnormality now present Electronically Signed On 05-22-2021 19:48:51 CDT by Christopher Haney M.D. [id number]
[2021-05-22] VITALS (59 sets, daily range): BP systolic 103–209; BP diastolic 63–116; PULSE 56–109; RESP 18–24; TEMP 36.5–37.6; O2SAT 83–98
[2021-05-22 00:02] LABS: Troponin 5 6HR 15.44 ng/L (0-10); Troponin 5 6HR Delta 6.44 ng/L (0-12)
[2021-05-22] MEDS: propofol 1,000 MG/100 ML INJ 21.77 MG IV ×2 (00:30→05:05)
[2021-05-22 04:02] LABS: ABG PCO2 55.1 mmHg (35-45); Base Excess ABG 7.8 mmol/L (-2.0-2.0); Blood Gas Sample Type Arterial; PO2 ABG 93.4 mmHg (80.0-100.0)
[2021-05-22 04:03] LABS: Blood Gas Operator Identificat JB; Oxygen Device VENT
[2021-05-22 04:27] LABS: Eosinophils # 0.1 10^3/uL (0.0-0.8); Eosinophils % 1.2 %; Hematocrit 31.5 % (37.0-47.0); Hemoglobin 9.2 g/dL (11.5-15.3); Lymphocytes # 1.2 10^3/uL (0.8-4.8); Lymphocytes % 24.4 %; Mean Corpuscular HGB Conc 29.2 g/dL (30.0-36.0); Mean Corpuscular Hemoglobin 22.9 pg (28.0-34.0); Mean Corpuscular Volume 78.4 fl (81-99); Mean Platelet Volume 9.3 fL (7.4-10.4); Monocytes # 0.3 10^3/uL (0.2-0.9); Monocytes % 5.2 %; Neutrophils # 3.26 10^3/uL (1.8-7.7); Neutrophils % 65.4 %; Nucleated Red Blood Cells % 0 %; Platelet Count 277 10^3/cmm (130-400); Red Blood Count 4.02 10^6/uL (4.1-5.3); Red Cell Distribution Width 17.1 % (12.1-15.1)
[2021-05-22 04:49] LABS: Alanine Aminotransferase 12 U/L (0-33); Albumin Level 2.8 g/dL (3.5-5.2); Alkaline Phosphatase 71 IU/L (35-105); Anion Gap 10.9 (5-19); Aspartate Amino Transferase 29 U/L (0-32); Blood Urea Nitrogen 10 mg/dL (6-20); Calcium 8.5 mg/dL (8.5-10.5); Carbon Dioxide 32 mmol/L (22-29); Chloride 98 mmol/L (98-107); Globulin 3.5 g/dL (1.3-4.6); Glomerular Filtration Rate 164.5 mL/min (90-130); Glucose 90 mg/dL (65-115); Osmolality Calculated 283 mOsm/kg (285-295); Phosphorus 3.3 mg/dL (2.5-4.5); Potassium 3.9 mmol/L (3.5-5.1); Sodium 137 mmol/L (136-145); Total Bilirubin 0.3 mg/dL (0.15-1.2); Total Protein 6.3 g/dL (6.6-8.7)
[2021-05-22 05:05] LABS: NT Pro B Type Natriuretic Pept 96 pg/mL (0-125); Procalcitonin 0.07 ng/mL (0-0.5)
[2021-05-22] MEDS: FUROsemide 10 mg/mL SDV 2mL 20 MG IVP ×2 (05:06→20:40)
[2021-05-22 05:16] LABS: Creatine Phosphokinase 39 U/L (26-192)
--- NOTE | 2021-05-22 05:50 | PC.NURSE ---
BIS/TOF Time BIS TOF 2200 65 4 0000 47 4 0200 48 4 0400 52 4 0600 48 4
--- NOTE | 2021-05-22 05:55 | PC.NURSE ---
Shift Note Frequent safety and comfort rounds continue. Orders and/or nursing care completed as indicated. Patient monitored for response to intervention and treatment(s). Education provided includes BIS/TOF. Patient unable to comprehend teaching due to being intubated and sedated. Right IJ central line has Propofol 40mcg/kg/min, Fentanyl 100 mcg/hr, and Nimbx 2.25 mcg/kg/min infusing per protocol. Right arm PICC line is saline locked. Tube feedings held overnight due to patient being proned. Nimbex was resumed at 2130 and patient was proned at 2200 with help of RT and other ICU staff. Please see previous note for BIS/TOF monitoring. Lopez catheter drained 1150 mls of dark yellow urine all evening. Vent settings are as follows; mode-CMV, FiO2-60%, Peep-12, VT-400, Rate-18. Patient remains unresponsive to painful and verbal stimuli. Will continue to monitor.
[2021-05-22] MEDS: cisatracurium 100 MG in sodium chloride 0.9% 50 ML 12.25 MG IV (07:10)
[2021-05-22] MEDS: cholecalciferol (vitamin D3) 1,000 unit Tablet 2000 UNIT PO (07:51)
[2021-05-22] MEDS: ascorbic acid 500 mg Tablet 1000 MG PO ×2 (07:51→17:09)
[2021-05-22] MEDS: enoxaparin 40 mg/0.4 mL Syringe SUBCUT (07:52)
[2021-05-22] MEDS: pantoprazole 40 mg SDV IVP ×2 (07:54→20:39)
[2021-05-22] MEDS: cyanocobalamin 1,000 mcg Tablet 1000 MCG PO (07:54)
[2021-05-22] MEDS: polyethylene glycol 3350 Pkt 17 gm PO (07:54)
[2021-05-22] MEDS: zinc gluconate 50 mg Tablet PO (07:56)
[2021-05-22] MEDS: dexamethasone 10 mg/mL INJ 6 MG IVP (07:56)
[2021-05-22] MEDS: folic acid 1 mg Tablet PO (07:57)
[2021-05-22] MEDS: sennosides-docusate Tablet 1 TAB PO (07:57)
[2021-05-22] MEDS: levothyroxine 100 mcg SDV 37.5 MCG IVP (08:01)
[2021-05-22] MEDS: labetalol 5 mg/mL SDV 20mL 10 MG IVP ×2 (08:52→12:29)
[2021-05-22] MEDS: vancomycin 1,500 MG/300 ML PIGGYBACK 200 MG IV ×2 (09:00→20:40)
[2021-05-22] MEDS: propofol 1,000 MG/100 ML INJ 27.22 MG IV ×5 (09:03→23:59)
--- NOTE | 2021-05-22 09:40 | PC.NURSE ---
Shift Note Frequent safety and comfort rounds continue. Orders and/or nursing care completed as indicated. Patient monitored for response to intervention and treatment(s). Education provided includes[Paralytics, ventilation, sedation, and sedation vacation.]. Patient and/or packaging sales representative [Patient's daughter]. Will continue to monitor. Received bed side shift report from off going nurse. Pt's plan of care reviewed. Pt resting in bed. Respirations are even and unlabored. No s/sx of distress noted. Pt is currently intubated, on sedation and paralytics and proned. Pt appears to be resting comfortably at this time. Daughter called and was updated on her mothers status and plan of care. Pt's right foot is cold to the touch with a +3 pedal pulse. Pt is also having bouts of HTN with SBP in the 200s. Hospitalist notified. New orders given. Bed in lowest and locked position, call light within reach, x's 3 rails up. Will continue to monitor pt. TOF 4/4 on 5miliamps. Pt is compliant with vent at this time.
--- NOTE | 2021-05-22 12:25 | PC.NURSE ---
TOF 4/4 on 5miliamps to left eyebrow. Pt is compliant with vent at this time.
--- NOTE | 2021-05-22 12:57 | PC.OT ---
OT held today as patient is sedated and on a vent, and positioned in prone.
--- NOTE | 2021-05-22 13:02 | PM.PN ---
Subjective Subjective: Interval history: Patient was seen this morning, overnight she is afebrile, normotensive, she is prone, she will finish her second proning session at 4 PM today, on paralytics, intubated, sedated, has had good urine output hypertensive this morning Vitals/I&O/Wt Last Vital Signs Temp 98.2 F 05/22/21 12:00 Pulse 100 05/22/21 12:00 Resp 18 05/22/21 12:00 BP 180/92 05/22/21 12:00 Pulse Ox 95 05/22/21 12:00 05/21/21 05/22/21 05/22/21 22:59 06:59 14:59 Intake Total 317.423 / 1283.890 649.637 / 1933.527 678.448 / 678.448 Output Total 650 / 650 1150 / 1800 1550 / 1550 Balance -332.577 / 633.890 -500.363 / 133.527 -871.552 / -871.552 Physical Exam Const: COMMON NORMALS: no acute distress OTHER: Intubated, sedated, prone, right central line in place, right PICC line in place, left art line in place Resp: COMMON NORMALS: normal respiratory effort, No retractions, No use of accessory muscles and clear to auscultation bilaterally AUSCULTATION: clear to auscultation bilaterally Cardio: COMMON NORMALS: regular rate, regular rhythm, S1 normal heart sound present and S2 normal heart sound present RATE: regular rate RHYTHM: regular rhythm HEART SOUNDS: S1 normal heart sound present and S2 normal heart sound present GI: COMMON NORMALS: Normal to inspection, nondistended, normoactive bowel sounds present, Soft to palpation and non-tender PALPATION: Yes Soft to palpation Extremity: COMMON NORMALS: no pedal edema Urinary Catheter Management^: Lopez: Cath Placed During This Visit: yes Reason for Continuing Indwelling Catheter: Accurate Measurement of Urinary Output in Critically Ill Patients Urinary Catheter Date of Insertion: 05/15/21 Urinary Catheter Time of Insertion: 11:56 Data : 05/22/21 03:45 05/22/21 03:45 Micro: Microbiology 05/20/21 15:58 Blood Culture - Preliminary Blood NEGATIVE TO DATE 05/20/21 15:50 Blood Culture - Preliminary Blood NEGATIVE TO DATE 05/20/21 18:25 MRSA Culture - Final Nose 05/20/21 18:25 Bacterial Antigens - Final Urine Kidney A&P Assessment and plan (1) Acute respiratory distress syndrome (ARDS) due to COVID-19 virus: Status: Acute (2) Fall: Status: Inactive Qualifiers: Encounter type: initial encounter Qualified Code(s): W19.XXXA - Unspecified fall, initial encounter (3) Pneumonia due to COVID-19 virus: Status: Acute (4) Respiratory failure: Status: Acute Qualifiers: Chronicity: acute Respiratory failure complication: hypoxia Qualified Code(s): J96.01 - Acute respiratory failure with hypoxia (5) Methadone dependence: Status: Chronic (6) Microcytic anemia: Status: Chronic (7) Hypothyroidism: Status: Chronic Qualifiers: Hypothyroidism type: acquired Qualified Code(s): E03.9 - Hypothyroidism, unspecified (8) Generalized anxiety disorder: Status: Chronic (9) Post-traumatic stress disorder, chronic: Status: Chronic (10) COVID-19 vaccine dose not administered: Status: Acute Additional A&P Information Acute hypoxic respiratory failure secondary COVID-19 pneumonia and acute respiratory distress syndrome -CT angiogram of the chest unremarkable for pulmonary emboli, does show scattered nonspecific bilateral pulmonary groundglass lesions -Bilateral lower extremity venous ultrasounds negative for DVT -Echocardiogram shows an EF of 60%, normal diastolic dysfunction Plan -Currently in ICU -Intubated 05/20/2021 -Intubated, mechanically ventilated, minimize FiO2, minimize tidal volume optimize PEEP -ABG pH 7.40, PO2 93.4, bicarb 34, 65%, tidal volume 400, PEEP of 12 -Currently on 50% FiO2 -Is -4 L, has received 1 dose of Lasix this a.m. -Propofol, fentanyl, Versed for sedation -We will complete second round of proning at 4 PM today, third round of proning to start tomorrow at 4 PM -Nimbex paralytic during proning -Prone for 16 hours -Supine for 8 hours, Nimbex off, Can start trickle feedings when supine -Levophed as needed, maintain MAP in the 65 -Continue dexamethasone -Continue finished remdesivir -1 dose Actemra 05/20/2021 -Continue continue vancomycin and Primaxin and Levaquin -Hold methadone -Continue gabapentin -History of bradycardia, normal QT interval, possibly secondary to remdesivir -Repeat blood cultures, urine cultures, sputum cultures, fungal studies -Albuterol -Budesonide -Labetalol, hydralazine for hypertension -Vitamin C, zinc, vitamin D - continue midodrine -Full code -SCDs for DVT prophylaxis, Lovenox for DVT prophylaxis -Status is critical, prognosis is guarded -Given patient's young age, she is a candidate for ECMO, will consider based on clinical progress Care History of Vance-en-Y gastric bypass, continue folic acid, B12, iron, Anxiety, hold Klonopin, continue Celexa Hypothyroidism, continue levothyroxine Hold methadone methadone, uses 70 mg at home Acute on chronic anemia, recently had an EGD without any significant findings, sigmoidoscopy was a poor quality study, does have evidence of iron deficiency anemia does have a history of Vance-en-Y gastric bypass, Hemoccult stool, Protonix 40 twice daily, monitor hemoglobin closely Plan for today supine at 4 PM, turn off paralytics, start trickle tube feeds, continue antibiotics, monitor vitals Attestations Medical Necessity Statement*: Patient requires hospitalization for acute respiratory failure secondary COVID-19 Procedures Arterial Line Size (Gauge): 20 Coding Level of Care Code Acute Material Specialist for [facility] Fwd Diagnoses Acute respiratory distress syndrome (ARDS) due to COVID-19 virus U07.1; J80 Fall W19.XXXA Encounter type: initial encounter Pneumonia due to COVID-19 virus U07.1; J12.82 Respiratory failure J96.01 Chronicity: acute Respiratory failure complication: hypoxia Methadone dependence F11.20 Microcytic anemia D50.9 Hypothyroidism E03.9 Hypothyroidism type: acquired Generalized anxiety disorder F41.1 Post-traumatic stress disorder, chronic F43.12 COVID-19 vaccine dose not administered Z28.9
[2021-05-22] MEDS: levofloxacin-dextrose 5 % 750 MG/150 ML PREMIX 100 MG IV (13:45)
--- NOTE | 2021-05-22 14:18 | PC.SOCIAL ---
IMM update IMM not updated due to patient not expected to DC in the next 24-48 hours.
--- NOTE | 2021-05-22 20:16 | XRR_ITS ---
PROCEDURE INFORMATION: Exam: XR Chest Exam date and time: 05/22/2021 8:16 PM Age: 55 years old Clinical indication: Shortness of breath; Patient HX: Sudden onset of declining hypoxia. Intubated. Covid. ; Additional info: Suspected pneumothorax TECHNIQUE: Imaging protocol: XR of the chest. Views: 1 view. COMPARISON: CR XR chest 1V portable [id number] 05/20/2021 3:29 PM FINDINGS: Tubes, catheters and devices: Intubation with tip 3.0 cm above the emily. Right IJ central line with tip over the mid SVC. Right PICC line with tip over the mid SVC. NG tube with tip in the proximal stomach. Lungs: Stable ground-glass opacities in both lungs. Pleural spaces: Trace right pneumothorax. Heart/Mediastinum: Slightly increased pneumomediastinum. Bones/joints: Unremarkable. Soft tissues: Stable soft tissue gas in the chest wall and neck. XR/XR chest 1V portable [id number] IMPRESSION: 1. Trace right pneumothorax. 2. Stable pulmonary edema versus pneumonia or ARDS. 3. Slightly increased pneumomediastinum.
[2021-05-22] MEDS: potassium chloride ER 20 mEq Tablet PO (20:43)
--- NOTE | 2021-05-22 22:00 | PC.NURSE ---
Chest X-Ray Received phone call about results of patient chest x-ray and spoke with Dr. Amador on the phone from [facility], this nurse relayed the message to Dr. Nation. No new orders received at time.
--- NOTE | 2021-05-22 22:05 | PC.NURSE ---
Prone Patient Did not prone patient tonight at 2200 due to new right side trace pneumothorax.
--- NOTE | 2021-05-22 22:16 | XRR_ITS ---
PROCEDURE INFORMATION: Exam: XR Chest Exam date and time: 05/22/2021 10:16 PM Age: 55 years old Clinical indication: Shortness of breath; Patient HX: Continued hypoxia. Intubated. ; Additional info: Check for pneumo TECHNIQUE: Imaging protocol: XR of the chest. Views: 1 view. COMPARISON: CR (CHEST, ) 05/22/2021 8:19 PM FINDINGS: Tubes, catheters and devices: Intubation with tip 2.8 cm above the emily. NG tube with tip in the proximal stomach. Stable right PICC line. Stable right central line. Lungs: Stable ground-glass opacities in both lungs and left base consolidations. Pleural spaces: Stable trace right pneumothorax. Heart/Mediastinum: Stable pneumomediastinum. Bones/joints: Unremarkable. Soft tissues: Stable soft tissue gas in the chest wall and neck. XR/XR chest 1V portable [id number] IMPRESSION: 1. Stable chest with a trace right pneumothorax and pneumomediastinum.
[2021-05-23] VITALS (51 sets, daily range): BP systolic 119–243; BP diastolic 62–123; PULSE 60–110; RESP 19–23; TEMP 36.7–37.4; O2SAT 84–99
[2021-05-23] MEDS: propofol 1,000 MG/100 ML INJ 27.22 MG IV ×4 (03:17→14:27)
[2021-05-23 04:40] LABS: Eosinophils # 0.1 10^3/uL (0.0-0.8); Eosinophils % 1.1 %; Hematocrit 34.1 % (37.0-47.0); Lymphocytes # 1.1 10^3/uL (0.8-4.8); Lymphocytes % 16.6 %; Mean Corpuscular HGB Conc 29.3 g/dL (30.0-36.0); Mean Corpuscular Volume 78.4 fl (81-99); Mean Platelet Volume 9.4 fL (7.4-10.4); Monocytes # 0.4 10^3/uL (0.2-0.9); Neutrophils # 4.65 10^3/uL (1.8-7.7); Neutrophils % 72.1 %; Nucleated Red Blood Cells % 0 %; Platelet Count 344 10^3/cmm (130-400); Red Blood Count 4.35 10^6/uL (4.1-5.3); Red Cell Distribution Width 17.3 % (12.1-15.1); White Blood Count 6.5 10^3/uL (4.0-10.0)
[2021-05-23 04:41] LABS: ABG PCO2 46.5 mmHg (35-45); ABG PH Result 7.47 (7.35-7.45); Arterial Blood Gas Hematocrit 21.5 % (37-47); Base Excess ABG 9.6 mmol/L (-2.0-2.0); Blood Gas Operator Identificat JB; Blood Gas Sample Type Arterial; HCO3 ABG 34.2 mmol/L (22-26); Oxygen Device VENT
[2021-05-23 04:42] LABS: Blood Gas Tidal Volume 0.35
[2021-05-23 05:17] LABS: Lactate (Lactic Acid level) 1.5 mmol/L (0.5-2.2)
[2021-05-23 05:20] LABS: Alanine Aminotransferase 13 U/L (0-33); Albumin Level 2.9 g/dL (3.5-5.2); Alkaline Phosphatase 73 IU/L (35-105); Anion Gap 15.7 (5-19); Aspartate Amino Transferase 22 U/L (0-32); Blood Urea Nitrogen 13 mg/dL (6-20); C Reactive Protein 4.7 mg/L (0.0-4.9); Carbon Dioxide 30 mmol/L (22-29); Chloride 95 mmol/L (98-107); Globulin 3.6 g/dL (1.3-4.6); Glomerular Filtration Rate 164.5 mL/min (90-130); Glucose 125 mg/dL (65-115); Osmolality Calculated 286 mOsm/kg (285-295); Phosphorus 2.8 mg/dL (2.5-4.5); Potassium 3.7 mmol/L (3.5-5.1); Sodium 137 mmol/L (136-145); Total Bilirubin 0.3 mg/dL (0.15-1.2); Total Protein 6.5 g/dL (6.6-8.7)
[2021-05-23 05:28] LABS: NT Pro B Type Natriuretic Pept 100 pg/mL (0-125); Procalcitonin 0.07 ng/mL (0-0.5)
[2021-05-23 05:39] LABS: Creatine Phosphokinase 39 U/L (26-192); Ferritin 57 ng/mL (15-150)
[2021-05-23 05:41] LABS: INR 1.08 (0.8-1.2)
[2021-05-23 05:44] LABS: D Dimer 1.82 ug/mIFEU (0-0.59)
--- NOTE | 2021-05-23 06:00 | ECG_ITS ---
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 Measurements Intervals [place] Rate: 80 P: 18 [place]: 150 QRS: 3 QRSD: 90 T: 62 QT: 392 QTc: 455 Interpretive Statements SINUS RHYTHM NONSPECIFIC T-WAVE ABNORMALITY Compared to ECG 05/21/2021 22:39:54 No significant changes Electronically Signed On 05-23-2021 6:58:36 CDT by Christopher Haney M.D. [id number]
--- NOTE | 2021-05-23 06:30 | PC.NURSE ---
Shift Note Frequent safety and comfort rounds continue. Orders and/or nursing care completed as indicated. Patient monitored for response to intervention and treatment(s). Education provided includes chest x ray and treatment plan. Patient unable to comprehend teaching due to being intubated and sedated. Patient unresponsive to verbal and painful stimuli at this time. Right forearm PICC line is saline locked at this time. Left radial art line dressing reinforced. Right IJ central line infusing Propofol 50 mcg/kg,min, Fentanyl 100 mcg/hr, and Versed 4 mg/hr. Lopez catheter drained 800mls of bright yellow urine all evening and patient had one small BM. Vent settings are as follows; mode-CMV, FiO2-100%, V-350, Rate-18, PEEP-10. Held tube feedings at 2130 last evening, planned to prone patient at 2200. Patient O2 sats dropped to 83%, obtained order for stat chest x-ray. Chest x ray results showed a trace right pneumothorax. Messaged Dr. Nation to inform her about findings, no new orders were received. Will continue to monitor.
--- NOTE | 2021-05-23 06:38 | XRR_ITS ---
PROCEDURE INFORMATION: Exam: XR Chest Exam date and time: 05/23/2021 6:38 AM Age: 55 years old Clinical indication: Screening exam; Other screening; Additional info: Check for pneumo TECHNIQUE: Imaging protocol: XR of the chest. Views: 1 view. COMPARISON: CR (CHEST, ) 05/23/2021 3:59 AM FINDINGS: Tubes, catheters and devices: An endotracheal tube is present with its tip about 4 cm above the emily. A nasogastric tube extends down to the stomach. A central venous catheter is present with the tip projecting in the SVC. A right internal jugular venous catheter is present with its tip projecting in the SVC. Lungs: There are extensive bilateral pulmonary infiltrates. Pleural spaces: Unremarkable. No pleural effusion. No pneumothorax. Heart/Mediastinum: There is a small pneumo mediastinum that is not significantly changed. Bones/joints: Unremarkable. Soft tissues: There is extensive subcutaneous emphysema around the chest. XR/XR chest 1V portable [id number] IMPRESSION: 1. Extensive bilateral pulmonary infiltrates. There has been improvement with partial clearing of the infiltrates in the left base. 2. Extensive subcutaneous emphysema around the chest and small pneumo mediastinum unchanged. 3. No pneumothorax is seen.
--- NOTE | 2021-05-23 06:57 | P.MISC_ITS ---
Miscellaneous Note Note: Overnight, at a roughly 645, patient was in supine position, her oxygen requirements increased from 65% FiO2 to 100%, no hemodynamic instability, not breathing over the vent, I advised nurse to give 20 mg Lasix, I ordered a chest x-ray, she was found to have, trace right pneumothorax and pneumomediastinum, decision was made overnight to conservatively manage, early this morning, repeat chest x-ray shows a slight pneumothorax on the right, has crepitus on the right, no hemodynamic compromise, remains 100% FiO2, remained supine, I discussed the case with Dr. Gallegos, it is difficult to appreciate the pneumothorax on the chest x-ray obtained this morning, however she does have crepitus on the right, we will go ahead and proceed with bilateral thoracic vent placement given her increasing oxygen requirements, and crepitus on the right. She is responsive on the vent, hemoglobin this morning 10, ABG this morning shows a pH of 7.47, PCO2 46.5, PO2 of 68, bicarb 34.2, she is on 100% FiO2, tidal volume 350, PEEP of 10. Her plateau pressures are reading out, but mean pressures are 16, we will work on possible patient transfer, I spoke to [facility], they will reach out to me,
--- NOTE | 2021-05-23 07:00 | XRR_ITS ---
PROCEDURE INFORMATION: Exam: XR Chest Exam date and time: 05/23/2021 7:00 AM Age: 55 years old Clinical indication: Dyspnea; Additional info: SOB TECHNIQUE: Imaging protocol: XR of the chest. Views: 1 view. COMPARISON: CR (CHEST, ) 05/22/2021 10:24 PM FINDINGS: Tubes, catheters and devices: Endotracheal tube is in good position. Right-sided PICC in right-sided central venous catheter stable. NG tube side port is in the distal esophagus and should be advanced 6 cm. Lungs: Stable bilateral infiltrates. Pleural spaces: Unremarkable. No pleural effusion. No pneumothorax. Heart/Mediastinum: Unremarkable. No cardiomegaly. Bones/joints: Unremarkable. Soft tissues: Stable soft tissue emphysema. XR/XR chest 1V portable [id number] IMPRESSION: 1. NG tube side port is in the distal esophagus and should be advanced 6 cm. 2. Stable bilateral infiltrates. 3. Stable soft tissue emphysema.
--- NOTE | 2021-05-23 08:33 | PC.CHAP ---
Pastoral Care Encounter/Spiritual Assessment Type of Contact [] Declined coffee attendant visit [] Patient/Family/Request visit [] Outpatient visit [] Follow-up visit [] Physician referral [] Code/Alert [x] Routine visit [] Staff referral [] Actively dying [] Patient sleeping [] Family support [] [] Out of room [] Palliative care [] [] Receiving care in room [] Pre-surgical visit [] Trauma [] Long length of stay [x] ICU visit [x] Other: lung tube... covid Relational/Emotional Strength [] Patient feels connected with others/family/visitors/staff [] Distress [] Loneliness/isolation [] Abandonment Spirituality of Patient [] Person of Ekta [] Attends Buddhism of their Ekta [] Believes in Prayer [] Reads Bible or Jain materials [] There are Spiritual issues to be addressed Winery Worker Interventions [x] Prayer [] Active listening [] Non-anxious presence [] Spiritual/emotional support [] Crisis/trauma care [] Spiritual counseling [] Bereavement support [] Provided bereavement packet [] Provided Bible/devotional materials [] Provided toy/stuffed animal, coloring book to patient or family member [] Provided Communion [] Anointing/Fine [] Salvation [x] Completed spiritual assessment [] Other: Impact on Illness or Injury [] Angry [] Fearful [] Anxious [] Often cries [] Exhaustion [] Unable to work [] Unable to attend gnosticist [] Unable to walk/stand [] Unable to read [] Unable to drive [] Unable to eat/drink [] Unable to sleep [] Unable to be with family [] Patient intubated [] Other: Summary Time spent with patient
[2021-05-23] MEDS: ascorbic acid 500 mg Tablet 1000 MG PO ×2 (10:21→17:38)
[2021-05-23] MEDS: sennosides-docusate Tablet 1 TAB PO (10:21)
[2021-05-23] MEDS: folic acid 1 mg Tablet PO (10:21)
[2021-05-23] MEDS: zinc gluconate 50 mg Tablet PO (10:21)
[2021-05-23] MEDS: cholecalciferol (vitamin D3) 1,000 unit Tablet 2000 UNIT PO (10:21)
[2021-05-23] MEDS: levothyroxine 100 mcg SDV 37.5 MCG IVP (10:22)
[2021-05-23] MEDS: enoxaparin 40 mg/0.4 mL Syringe SUBCUT (10:22)
[2021-05-23] MEDS: cyanocobalamin 1,000 mcg Tablet 1000 MCG PO (10:22)
[2021-05-23] MEDS: polyethylene glycol 3350 Pkt 17 gm PO (10:23)
[2021-05-23] MEDS: vancomycin 1,500 MG/300 ML PIGGYBACK 300 MG IV ×2 (10:23→22:15)
[2021-05-23] MEDS: pantoprazole 40 mg SDV IVP ×2 (10:23→22:15)
[2021-05-23] MEDS: dexamethasone 10 mg/mL INJ 6 MG IVP (10:26)
[2021-05-23] MEDS: cisatracurium 100 MG in sodium chloride 0.9% 50 ML IV (10:31)
--- NOTE | 2021-05-23 11:59 | PC.OT ---
OT NOTE: HOLD OT TREATMENT TODAY DUE TO PNEUMOTHORAX AND POSSIBLE PROCEDURE. WILL ATTEMPT AGAIN TOMORROW.
--- NOTE | 2021-05-23 12:18 | PC.NURSE ---
OG was not able to advance the 6mm per radiologist report. Resistance was met each time. The tube was removed and a new put in. Precedex started. BIS is 35 at this time.
--- NOTE | 2021-05-23 14:09 | PM.PN ---
Subjective Subjective: Interval history: 55 year old female who presented to the emergency room with increasing difficulty breathing and low oxygen levels. Her oxygen requirements subsequently increased she was transitioned to BiPAP and was emergently intubated. She has been placed on remdesivir and dexamethasone. She has completed her second proning session. May 22 patient was noted to have increased oxygen requirement. Found to have trace right pneumothorax. Case was discussed with CT surgery. Difficult to appreciate pneumothorax. Patient was noted to have crepitus. Consideration for thoracic vent. Call was also placed to outside hospital [facility] for possible transfer. At this time beds are not available. Medications: Reviewed: Yes Vitals/I&O/Wt Last Vital Signs Temp 98.1 F 05/23/21 08:30 Pulse 81 05/23/21 12:00 Resp 21 H 05/23/21 12:58 BP 126/68 05/23/21 12:00 Pulse Ox 91 05/23/21 12:58 05/22/21 05/23/21 05/23/21 22:59 06:59 14:59 Intake Total 942.719 / 1716.717 655.493 / 2372.210 100 / 100 Output Total 1350 / 2900 800 / 3700 Balance -407.281 / -1183.283 -144.507 / -1327.790 100 / 100 Physical Exam Const: OTHER: Intubated and sedated Resp: COMMON NORMALS: clear to auscultation bilaterally AUSCULTATION: clear to auscultation bilaterally Cardio: COMMON NORMALS: regular rate and regular rhythm RATE: regular rate RHYTHM: regular rhythm GI: COMMON NORMALS: Normal to inspection, nondistended, normoactive bowel sounds present, Soft to palpation and non-tender PALPATION: Yes Soft to palpation Extremity: COMMON NORMALS: no pedal edema GENERAL: No amputation Urinary Catheter Management^: Lopez: Cath Placed During This Visit: yes Reason for Continuing Indwelling Catheter: Accurate Measurement of Urinary Output in Critically Ill Patients Urinary Catheter Date of Insertion: 05/15/21 Urinary Catheter Time of Insertion: 11:56 Data : 05/23/21 03:20 05/23/21 03:20 Micro: Microbiology 05/23/21 03:49 C.difficile Toxin B Gene (PCR) - Final Stool Routine Collection A&P Assessment and plan (1) Acute respiratory distress syndrome (ARDS) due to COVID-19 virus: Status: Acute (2) COVID-19 vaccine dose not administered: Status: Acute (3) Microcytic anemia: Status: Chronic (4) Methadone dependence: Status: Chronic (5) Hypothyroidism: Status: Chronic Qualifiers: Hypothyroidism type: acquired Qualified Code(s): E03.9 - Hypothyroidism, unspecified (6) Benign essential HTN: Status: Chronic (7) Pneumothorax: Status: Acute Additional A&P Information #Acute Hypoxic respiratory failure #Covid 19 Pneumonia #pneumothorax --Imaging reveals scattered nonspecific bilateral pulmonary groundglass lesions --Negative for DVT or PE --Currently intubated mechanically ventilated requiring FiO2 100% --Concern for possible pneumothorax pulmonary and CT surgery consulted possible thoracic ventilator today --We will likely prone later for third session, Nimbex paralytic during proning prone for 6-hour supine for 8 hours --Propofol, fentanyl, Versed for sedation --Continue dexamethasone completed remdesivir Levophed as needed --Actemra given May 20, 2021 --Empiric antibiotics vancomycin, Primaxin and Levaquin #chronic opiod dependence --Takes 75 mg of methadone daily at home --Continue fentanyl per protocol --Continue gabapentin #Hypothyroidism --TSH 1.32, continue levothyroxine. 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
[2021-05-23] MEDS: levofloxacin-dextrose 5 % 750 MG/150 ML PREMIX 100 MG IV (15:20)
[2021-05-23] MEDS: hyDRALAzine 20 mg/mL INJ 1 mL 10 MG IVP (16:51)
[2021-05-23] MEDS: labetalol 5 mg/mL SDV 20mL 10 MG IVP (17:15)
[2021-05-23] MEDS: cefepime 1,000 MG in sodium chloride 0.9% (plus) 50 ML 100 MG IV (17:37)
[2021-05-23] MEDS: propofol 1,000 MG/100 ML INJ 32.66 MG IV ×2 (18:08→21:30)
--- NOTE | 2021-05-23 19:14 | PC.NUTR ---
Nutrition note: Pt currently receiving Propofol @ 32.66 ml/hr which provides 862 kcals or 49% of Patient's estimated calorie needs and no protein. When medically appropriate and if consistent with goals of care for patient, recommend consideration of TF Jevity 1.2, starting @ 10 mls/hr, increase by 10 ml/hr q 8 hrs as tolerated until goal rate of 20 ml/hr, with water flushes of 120 ml q 4 hrs. Propofol + Jevity 1.2 @20 ml/hr will provide 1438 kcals (81% of est. calorie needs) and 26 grams of protein (44% est. protein needs).
[2021-05-23] MEDS: cisatracurium 100 MG in sodium chloride 0.9% 50 ML 10.89 MG IV (23:10)
[2021-05-24] VITALS (60 sets, daily range): BP systolic 92–163; BP diastolic 60–95; PULSE 62–105; RESP 18–28; TEMP 36.4–37.1; O2SAT 88–100
[2021-05-24] MEDS: propofol 1,000 MG/100 ML INJ 32.66 MG IV ×7 (02:08→23:53)
[2021-05-24 04:50] LABS: ABG PH Result 7.36 (7.35-7.45); Arterial Blood Gas Hematocrit 31.6 % (37-47); Base Excess ABG 9.1 mmol/L (-2.0-2.0); Blood Gas Allen Test Pos; Blood Gas Sample Site Radial, right; Blood Gas Sample Type Arterial; Blood Gas Tidal Volume 0.35; HCO3 ABG 36.3 mmol/L (22-26); Oxygen Device VENT; PO2 ABG 90.5 mmHg (80.0-100.0)
[2021-05-24] MEDS: cefepime 1,000 MG in sodium chloride 0.9% (plus) 50 ML 100 MG IV ×2 (05:16→18:00)
[2021-05-24 05:44] LABS: ABG PCO2 64.1 mmHg (35-45)
--- NOTE | 2021-05-24 06:00 | ECG_ITS ---
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[id number] Requested By: Chris Marc Order Number: [id number] Reading MD: LB TORREZ Measurements Intervals [place] Rate: 92 P: 35 RI: 156 QRS: 5 QRSD: 101 T: 69 QT: 352 QTc: 437 Interpretive Statements SINUS RHYTHM LOW QRS VOLTAGE IN PRECORDIAL LEADS [QRS DEFLECTION < 1.0 mV IN CHEST LEADS] POSSIBLE RIGHT VENTRICULAR CONDUCTION DELAY [RSR (QR) IN V1/V2] POSSIBLE LEFT VENTRICULAR HYPERTROPHY [VOLTAGE CRITERIA PLUS LAE OR QRS WIDENING] POSSIBLE SEPTAL MYOCARDIAL INFARCTION , OF INDETERMINATE AGE [30 ms Q WAVE IN V1/V2] Compared to ECG 05/23/2021 06:03:40 Low QRS voltage now present Myocardial infarct finding now present T-wave abnormality no longer present Electronically Signed On 05-24-2021 21:13:00 CDT by LB TORREZ [id number]
[2021-05-24 06:03] LABS: Basophils % 0.1 %; Eosinophils # 0.1 10^3/uL (0.0-0.8); Eosinophils % 0.7 %; Hematocrit 32.9 % (37.0-47.0); Hemoglobin 9.9 g/dL (11.5-15.3); Lymphocytes # 1.2 10^3/uL (0.8-4.8); Lymphocytes % 12.7 %; Mean Corpuscular HGB Conc 30.1 g/dL (30.0-36.0); Mean Corpuscular Hemoglobin 23.9 pg (28.0-34.0); Mean Corpuscular Volume 79.5 fl (81-99); Mean Platelet Volume 8.9 fL (7.4-10.4); Monocytes # 0.4 10^3/uL (0.2-0.9); Monocytes % 4.6 %; Neutrophils # 7.41 10^3/uL (1.8-7.7); Neutrophils % 77.7 %; Nucleated Red Blood Cells % 0 %; Platelet Count 311 10^3/cmm (130-400); Red Blood Count 4.14 10^6/uL (4.1-5.3); Red Cell Distribution Width 17.1 % (12.1-15.1); White Blood Count 9.5 10^3/uL (4.0-10.0)
[2021-05-24 06:11] LABS: INR 1.04 (0.8-1.2)
[2021-05-24 06:19] LABS: Alkaline Phosphatase 74 IU/L (35-105); Anion Gap 9.1 (5-19); Blood Urea Nitrogen 11 mg/dL (6-20); Calcium 8.7 mg/dL (8.5-10.5); Carbon Dioxide 34 mmol/L (22-29); Chloride 98 mmol/L (98-107); Glomerular Filtration Rate 366.1 mL/min (90-130); Glucose 123 mg/dL (65-115); Lactate (Lactic Acid level) 0.9 mmol/L (0.5-2.2); Magnesium 2.2 mg/dL (1.7-2.3); Osmolality Calculated 285 mOsm/kg (285-295); Phosphorus 3.7 mg/dL (2.5-4.5); Potassium 4.1 mmol/L (3.5-5.1); Sodium 137 mmol/L (136-145); Total Bilirubin 0.2 mg/dL (0.15-1.2)
[2021-05-24 06:43] LABS: Alanine Aminotransferase < 5 U/L (0-33); Aspartate Amino Transferase 5 U/L (0-32)
--- NOTE | 2021-05-24 06:50 | PC.NURSE ---
BIS/TOF Time BIS TOF 2000 41 4 2200 37 4 0000 40 4 0200 36 2 0400 32 4 0600 44 4
--- NOTE | 2021-05-24 07:06 | PC.NURSE ---
Shift Note Frequent safety and comfort rounds continue. Orders and/or nursing care completed as indicated. Patient monitored for response to intervention and treatment(s). Education provided includes BIS monitor and Nimbex. Patient unable to comprehend teaching due to being intubated and sedated. Patient is unresponsive to painful and verbal stimuli at this time. Left radial arterial line pulled out while moving patient, catheter intact. Right arm PICC line saline locked at this time. Right IJ central line infusing Propofol 60 mcg/kg/min, Fentanyl 100 mcg/hr, Versed 6 mg/hr, and Nimbex 2 mcg/kg/hr. Please see previous note for TOF/BIS monitoring. Lopez catheter drained 800 mls of dark yellow urine all evening. Tube feedings held due to patient being prone, no residual from gastric tube. Vent settings; mode-CMV, FiO2-65%, VT-350, rate-18, PEEP-10. Will continue to monitor.
[2021-05-24 07:34] LABS: NT Pro B Type Natriuretic Pept 111 pg/mL (0-125); Procalcitonin 0.07 ng/mL (0-0.5)
[2021-05-24 07:45] LABS: Creatine Phosphokinase 110 U/L (26-192); Ferritin 47 ng/mL (15-150)
--- NOTE | 2021-05-24 07:47 | PC.NURSE ---
pt turned to her back.
--- NOTE | 2021-05-24 08:00 | PC.NURSE ---
Pulmacare started at 15 ml/hr.
[2021-05-24] MEDS: enoxaparin 40 mg/0.4 mL Syringe SUBCUT (08:02)
[2021-05-24] MEDS: dexamethasone 10 mg/mL INJ 6 MG IVP (08:03)
--- NOTE | 2021-05-24 08:37 | PC.CHAP ---
Pastoral Care Encounter/Spiritual Assessment Type of Contact [] Declined flight crew scheduler visit [] Patient/Family/Request visit [] Outpatient visit [] Follow-up visit [] Physician referral [] Code/Alert [x] Routine visit [] Staff referral [] Actively dying [] Patient sleeping [] Family support [] [] Out of room [] Palliative care [] [] Receiving care in room [] Pre-surgical visit [] Trauma [] Long length of stay [x] ICU visit [] Other: Relational/Emotional Strength [] Patient feels connected with others/family/visitors/staff [] Distress [] Loneliness/isolation [] Abandonment Spirituality of Patient [] Person of Ekta [] Attends Oriental Orthodox of their Ekta [] Believes in Prayer [] Reads Bible or Confucianist materials [] There are Spiritual issues to be addressed Wireless Sales Representative Interventions [x] Prayer [] Active listening [] Non-anxious presence [] Spiritual/emotional support [] Crisis/trauma care [] Spiritual counseling [] Bereavement support [] Provided bereavement packet [] Provided Bible/devotional materials [] Provided toy/stuffed animal, coloring book to patient or family member [] Provided Communion [] Anointing/[place] [] Salvation [x] Completed spiritual assessment [] Other: Impact on Illness or Injury [] Angry [] Fearful [] Anxious [] Often cries [] Exhaustion [] Unable to work [] Unable to attend bahai [] Unable to walk/stand [] Unable to read [] Unable to drive [] Unable to eat/drink [] Unable to sleep [] Unable to be with family [] Patient intubated [] Other: Summary Time spent with patient
--- NOTE | 2021-05-24 09:11 | PC.SOCIAL ---
IMM update IMM not updated due to patient not expected to DC in the next 24-48 hours.
[2021-05-24] MEDS: pantoprazole 40 mg SDV IVP ×2 (09:58→20:40)
[2021-05-24] MEDS: vancomycin 1,500 MG/300 ML PIGGYBACK 300 MG IV ×2 (09:59→20:40)
[2021-05-24] MEDS: cyanocobalamin 1,000 mcg Tablet 1000 MCG PO (09:59)
[2021-05-24] MEDS: cholecalciferol (vitamin D3) 1,000 unit Tablet 2000 UNIT PO (09:59)
[2021-05-24] MEDS: zinc gluconate 50 mg Tablet PO (09:59)
[2021-05-24] MEDS: ascorbic acid 500 mg Tablet 1000 MG PO ×2 (09:59→18:00)
[2021-05-24] MEDS: levothyroxine 100 mcg SDV 37.5 MCG IVP (10:00)
[2021-05-24] MEDS: folic acid 1 mg Tablet PO (10:00)
[2021-05-24] MEDS: ipratropium-albuterol 3 mL Neb INHALATION ×2 (14:23→20:25)
[2021-05-24] MEDS: levofloxacin-dextrose 5 % 750 MG/150 ML PREMIX 100 MG IV (14:46)
--- NOTE | 2021-05-24 15:26 | PM.PN ---
Subjective Subjective: Interval history: 55 year old female who presented to the emergency room with increasing difficulty breathing and low oxygen levels. Her oxygen requirements subsequently increased she was transitioned to BiPAP and was emergently intubated. She has been placed on remdesivir and dexamethasone. She has completed her second proning session. May 22 patient was noted to have increased oxygen requirement. Found to have trace right pneumothorax. Case was discussed with CT surgery. Difficult to appreciate pneumothorax. Patient was noted to have crepitus. Consideration for thoracic vent. Call was also placed to outside hospital [facility] for possible transfer. Patient appears to be breathing over the vent this morning. RT adjusted settings. Appears more comfortable. Currently CMV, 440, 10/ FiO2 is 70%. Medications: Reviewed: Yes Vitals/I&O/Wt Last Vital Signs Temp 97.6 F 05/24/21 08:00 Pulse 94 05/24/21 14:45 Resp 28 H 05/24/21 15:13 BP 116/67 05/24/21 13:30 Pulse Ox 93 05/24/21 15:13 05/24/21 05/24/21 05/24/21 06:59 14:59 22:59 Intake Total 774.423 / 2015.052 395.1 / 395.1 Output Total 800 / 2600 500 / 500 Balance -25.577 / -584.948 -104.9 / -104.9 Physical Exam Const: OTHER: intubated and sedated Resp: COMMON NORMALS: clear to auscultation bilaterally AUSCULTATION: clear to auscultation bilaterally Cardio: COMMON NORMALS: regular rate and regular rhythm RATE: regular rate RHYTHM: regular rhythm GI: COMMON NORMALS: Soft to palpation and No hepatosplenomegaly present PALPATION: Yes Soft to palpation and Yes No hepatosplenomegaly present Extremity: COMMON NORMALS: no pedal edema Urinary Catheter Management^: Lopez: Cath Placed During This Visit: yes Reason for Continuing Indwelling Catheter: Accurate Measurement of Urinary Output in Critically Ill Patients Urinary Catheter Date of Insertion: 05/15/21 Urinary Catheter Time of Insertion: 11:56 Data : 05/24/21 05:25 05/24/21 05:25 Micro: Microbiology 05/23/21 03:49 C.difficile Toxin B Gene (PCR) - Final Stool Routine Collection A&P Assessment and plan (1) Pneumonia due to COVID-19 virus: Status: Acute (2) Microcytic anemia: Status: Chronic (3) COVID-19 vaccine dose not administered: Status: Acute (4) Hypothyroidism: Status: Chronic Qualifiers: Hypothyroidism type: acquired Qualified Code(s): E03.9 - Hypothyroidism, unspecified (5) Methadone dependence: Status: Chronic (6) Generalized anxiety disorder: Status: Chronic Additional A&P Information #Acute Hypoxic respiratory failure #Covid 19 Pneumonia #pneumothorax --Imaging reveals scattered nonspecific bilateral pulmonary groundglass lesions --Negative for DVT or PE --Currently intubated mechanically ventilated requiring FiO2 70% --previous Concern for possible pneumothorax pulmonary and CT surgery consulted possible thoracic ventilator today --later evaluated likley subcutaneous --prone, Nimbex paralytic during proning prone for 6-hour supine for 8 hours --Propofol, fentanyl, Versed for sedation --Continue dexamethasone completed remdesivir Levophed as needed --Actemra given May 20, 2021 --Empiric antibiotics vancomycin, cefepime and Levaquin #chronic opiod dependence --Takes 75 mg of methadone daily at home --Continue fentanyl per protocol --Continue gabapentin #Hypothyroidism --TSH 1.32, continue levothyroxine. #History of Vance-en-y gastric bypass --complicates history, continue supplements DVT: Lovenox Disposition: Status critical Attestations Medical Necessity Statement*: Maria Victoria New's hospital stay will require greater than 2 midnights for respiratory failure Procedures Arterial Line Size (Gauge): 20 Coding Level of Care Code Acute Freight Service Inspector for [facility] Fwd Diagnoses Pneumonia due to COVID-19 virus U07.1; J12.82 Microcytic anemia D50.9 COVID-19 vaccine dose not administered Z28.9 Hypothyroidism E03.9 Hypothyroidism type: acquired Methadone dependence F11.20 Generalized anxiety disorder F41.1
[2021-05-24] MEDS: cisatracurium 100 MG in sodium chloride 0.9% 50 ML 5.44 MG IV (15:33)
[2021-05-24] MEDS: cisatracurium 100 MG in sodium chloride 0.9% 50 ML 16.33 MG IV (21:12)
[2021-05-25] VITALS (62 sets, daily range): BP systolic 93–146; BP diastolic 59–91; PULSE 66–103; RESP 16–26; TEMP 36.8–37.2; O2SAT 85–97
[2021-05-25] MEDS: cisatracurium 100 MG in sodium chloride 0.9% 50 ML 16.33 MG IV (01:33)
[2021-05-25] MEDS: propofol 1,000 MG/100 ML INJ 32.66 MG IV ×4 (02:13→12:59)
[2021-05-25] MEDS: ipratropium-albuterol 3 mL Neb INHALATION ×4 (03:19→20:02)
[2021-05-25] MEDS: cefepime 1,000 MG in sodium chloride 0.9% (plus) 50 ML 100 MG IV ×2 (04:13→17:40)
[2021-05-25 04:51] LABS: ABG PCO2 46.2 mmHg (35-45); ABG PH Result 7.47 (7.35-7.45); Blood Gas Allen Test Pos; Blood Gas Sample Site Radial, right; Blood Gas Sample Type Arterial; Blood Gas Tidal Volume 0.44
[2021-05-25 04:53] LABS: Arterial Blood Gas Hematocrit 43.9 % (37-47); Blood Gas Operator Identificat Anonymous; HCO3 ABG 22.9 mmol/L (22-26); PO2 ABG 95.7 mmHg (80.0-100.0)
[2021-05-25 05:48] LABS: Basophils % 0.2 %; Eosinophils # 0.1 10^3/uL (0.0-0.8); Eosinophils % 1.7 %; Hematocrit 33.6 % (37.0-47.0); Hemoglobin 10.4 g/dL (11.5-15.3); Lymphocytes # 1.5 10^3/uL (0.8-4.8); Lymphocytes % 17.6 %; Mean Corpuscular Hemoglobin 24.1 pg (28.0-34.0); Mean Corpuscular Volume 77.8 fl (81-99); Mean Platelet Volume 8.8 fL (7.4-10.4); Monocytes # 0.5 10^3/uL (0.2-0.9); Monocytes % 5.4 %; Neutrophils # 5.99 10^3/uL (1.8-7.7); Neutrophils % 71.5 %; Nucleated Red Blood Cells % 0 %; Platelet Count 288 10^3/cmm (130-400); Red Blood Count 4.32 10^6/uL (4.1-5.3); Red Cell Distribution Width 17.2 % (12.1-15.1); White Blood Count 8.4 10^3/uL (4.0-10.0)
[2021-05-25] MEDS: cisatracurium 100 MG in sodium chloride 0.9% 50 ML 21.77 MG IV (05:55)
[2021-05-25 05:56] LABS: INR 1.07 (0.8-1.2)
[2021-05-25 05:59] LABS: D Dimer 1.77 ug/mIFEU (0-0.59)
--- NOTE | 2021-05-25 06:07 | PC.NURSE ---
Shift Note Frequent safety and comfort rounds continue. Orders and nursing care completed as indicated. Patient monitored for response to intervention and treatments. Education provided including proning and ventilator management. Patient requires reinforcement due to medications. patient remains medically sedated, paralyzed, and proned. Ventilator management has improved slightly this shift. TOF remains 4/4 but continues to be compliant with the vent. patient had 2 bowel movements and uop remains adequate. lovenox given for DVT prophylaxis this AM. Will continue to monitor.
[2021-05-25 06:13] LABS: NT Pro B Type Natriuretic Pept 119 pg/mL (0-125); Procalcitonin 0.07 ng/mL (0-0.5)
[2021-05-25] MEDS: enoxaparin 40 mg/0.4 mL Syringe SUBCUT (06:22)
[2021-05-25 06:26] LABS: Alkaline Phosphatase 67 IU/L (35-105); Anion Gap 18.2 (5-19); Blood Urea Nitrogen 11 mg/dL (6-20); Calcium 8.5 mg/dL (8.5-10.5); Carbon Dioxide 25 mmol/L (22-29); Chloride 97 mmol/L (98-107); Creatine Phosphokinase 38 U/L (26-192); Ferritin 47 ng/mL (15-150); Globulin 2.8 g/dL (1.3-4.6); Glomerular Filtration Rate 366.1 mL/min (90-130); Glucose 124 mg/dL (65-115); Magnesium 2.1 mg/dL (1.7-2.3); Osmolality Calculated 285 mOsm/kg (285-295); Phosphorus 2.9 mg/dL (2.5-4.5); Potassium 3.2 mmol/L (3.5-5.1); Sodium 137 mmol/L (136-145); Total Bilirubin 0.2 mg/dL (0.15-1.2); Total Protein 5.8 g/dL (6.6-8.7)
[2021-05-25 06:39] LABS: Alanine Aminotransferase < 5 U/L (0-33); Aspartate Amino Transferase 5 U/L (0-32)
[2021-05-25] MEDS: dexamethasone 10 mg/mL INJ 6 MG IVP (07:38)
--- NOTE | 2021-05-25 08:52 | PC.CHAP ---
Pastoral Care Encounter/Spiritual Assessment Type of Contact [] Declined train brake operator visit [] Patient/Family/Request visit [] Outpatient visit [] Follow-up visit [] Physician referral [] Code/Alert [x] Routine visit [] Staff referral [] Actively dying [] Patient sleeping [] Family support [] [] Out of room [] Palliative care [] [] Receiving care in room [] Pre-surgical visit [] Trauma [] Long length of stay [x] ICU visit [] Other: Relational/Emotional Strength [] Patient feels connected with others/family/visitors/staff [] Distress [] Loneliness/isolation [] Abandonment Spirituality of Patient [] Person of Ekta [] Attends Oriental Orthodox of their Ekta [] Believes in Prayer [] Reads Bible or Adventist materials [] There are Spiritual issues to be addressed Patient Intake Coordinator Interventions [x] Prayer [] Active listening [] Non-anxious presence [] Spiritual/emotional support [] Crisis/trauma care [] Spiritual counseling [] Bereavement support [] Provided bereavement packet [] Provided Bible/devotional materials [] Provided toy/stuffed animal, coloring book to patient or family member [] Provided Communion [] Anointing/[place] [] Salvation [x] Completed spiritual assessment [] Other: Impact on Illness or Injury [] Angry [] Fearful [] Anxious [] Often cries [] Exhaustion [] Unable to work [] Unable to attend faith [] Unable to walk/stand [] Unable to read [] Unable to drive [] Unable to eat/drink [] Unable to sleep [] Unable to be with family [] Patient intubated [] Other: Summary Time spent with patient
[2021-05-25] MEDS: potassium chloride premix 100 ML 25 MEQ IV (08:58)
[2021-05-25] MEDS: cyanocobalamin 1,000 mcg Tablet 1000 MCG PO (10:03)
[2021-05-25] MEDS: vancomycin 1,500 MG/300 ML PIGGYBACK 300 MG IV ×2 (10:03→20:39)
[2021-05-25] MEDS: polyethylene glycol 3350 Pkt 17 gm PO (10:03)
[2021-05-25] MEDS: pantoprazole 40 mg SDV IVP ×2 (10:04→20:39)
[2021-05-25] MEDS: zinc gluconate 50 mg Tablet PO (10:04)
[2021-05-25] MEDS: cholecalciferol (vitamin D3) 1,000 unit Tablet 2000 UNIT PO (10:04)
[2021-05-25] MEDS: sennosides-docusate Tablet 1 TAB PO (10:04)
[2021-05-25] MEDS: ascorbic acid 500 mg Tablet 1000 MG PO ×2 (10:04→17:40)
[2021-05-25] MEDS: folic acid 1 mg Tablet PO (10:04)
[2021-05-25] MEDS: levothyroxine 100 mcg SDV 37.5 MCG IVP (10:05)
--- NOTE | 2021-05-25 10:56 | PC.NURSE ---
Nurse turned patient from prone to supine with the help of respiratory therapist, and 2 additional nurses changed patient from prone to supine. Reposition was uneventful.
--- NOTE | 2021-05-25 12:49 | PM.PN ---
Subjective Subjective: Interval history: 55 year old female who presented to the emergency room with increasing difficulty breathing and low oxygen levels. Her oxygen requirements subsequently increased she was transitioned to BiPAP and was emergently intubated. She has been placed on remdesivir and dexamethasone. May 22 patient was noted to have increased oxygen requirement. Found to have trace right pneumothorax. Case was discussed with CT surgery. Difficult to appreciate pneumothorax. Patient was noted to have crepitus. Consideration for thoracic vent. Call was also placed to outside hospital [facility] for possible transfer. Further evaluation thought to have subcutaneous pneumothorax. Pt was transitioned from prone to supine this AM Patient appears to be breathing over the vent this morning. RT adjusted settings. Appears more comfortable. Currently CMV, 440, 10/ FiO2 is 70%. Medications: Reviewed: Yes Vitals/I&O/Wt Last Vital Signs Temp 98.8 F 05/25/21 08:00 Pulse 101 H 05/25/21 08:30 Resp 22 H 05/25/21 10:02 BP 133/81 05/25/21 08:30 Pulse Ox 88 L 05/25/21 10:02 05/24/21 05/25/21 05/25/21 22:59 06:59 14:59 Intake Total 834.717 / 1529.817 596.296 / 2126.113 100 / 100 Output Total 650 / 1150 800 / 1950 Balance 184.717 / 379.817 -203.704 / 176.113 100 / 100 Weight last 48 hrs Weight 195 lb 8 oz Physical Exam Const: OTHER: intubated and sedated Chest: COMMONS NORMALS: normal inspection of the chest Resp: COMMON NORMALS: normal respiratory effort and clear to auscultation bilaterally AUSCULTATION: clear to auscultation bilaterally Cardio: COMMON NORMALS: regular rate and regular rhythm RATE: regular rate RHYTHM: regular rhythm GI: COMMON NORMALS: Soft to palpation PALPATION: Yes Soft to palpation Extremity: COMMON NORMALS: no pedal edema Urinary Catheter Management^: Lopez: Cath Placed During This Visit: yes Reason for Continuing Indwelling Catheter: Accurate Measurement of Urinary Output in Critically Ill Patients Urinary Catheter Date of Insertion: 05/15/21 Urinary Catheter Time of Insertion: 11:56 Data : 05/25/21 05:35 05/25/21 05:35 Micro: Microbiology 05/25/21 10:02 Gram Stain - Final Sputum - Endotracheal Tube Aspirate A&P Assessment and plan (1) Acute respiratory distress syndrome (ARDS) due to COVID-19 virus: Status: Acute (2) Pneumothorax: Status: Acute (3) Methadone dependence: Status: Chronic (4) Hypothyroidism: Status: Chronic Qualifiers: Hypothyroidism type: acquired Qualified Code(s): E03.9 - Hypothyroidism, unspecified (5) Benign essential HTN: Status: Chronic Additional A&P Information #Acute Hypoxic respiratory failure #Covid 19 Pneumonia #pneumothorax --Imaging reveals scattered nonspecific bilateral pulmonary groundglass lesions --Negative for DVT or PE --Currently intubated mechanically ventilated requiring FiO2 70% --previous Concern for possible pneumothorax pulmonary and CT surgery consulted --later evaluated likley subcutaneous pneumonthorax --prone, Nimbex paralytic during proning prone for 16-hour supine for 8 hours changed to supine this AM --Propofol, fentanyl, Versed for sedation --Continue dexamethasone completed remdesivir Levophed as needed --Actemra given May 20, 2021 --Empiric antibiotics vancomycin, cefepime and Levaquin #chronic opiod dependence --Takes 75 mg of methadone daily at home --Continue fentanyl per protocol --Continue gabapentin #Hypothyroidism --TSH 1.32, continue levothyroxine. #History of Vance-en-y gastric bypass --complicates history, continue supplements DVT: Lovenox Disposition: Status critical Attestations Medical Necessity Statement*: Maria Victoria New's hospital stay will require greater than 2 midnights for respiratory failure Procedures Arterial Line Size (Gauge): 20 Coding Level of Care Code Acute Assistant Executive Housekeeper for g Fwd Diagnoses Acute respiratory distress syndrome (ARDS) due to COVID-19 virus U07.1; J80 Pneumothorax J93.9 Methadone dependence F11.20 Hypothyroidism E03.9 Hypothyroidism type: acquired Benign essential HTN I10
--- NOTE | 2021-05-25 13:26 | PC.NUTR ---
Tube feeding recommendations: Likely malnourished, given minimal TF provision X 5 days (less than , with poor po intakes prior to intubation. Propofol @ 32.66 ml/hr providing 862 kcals. TF held at this time, recommend resume as soon as medically appropriate. Clarified order with MD--will modify to Pulmocare at 15 ml/hr. TF with flushes as ordered to provide 540 kcal, 23 g protein, and 883 ml H2O. Propofol + TF at goal would provide 79% kcal needs, however only 31% protein needs. If unable to increase TF provision within 1-3 days, suggest addition of Beneprotein QID for additional 24 g protein with minimal kcal. Also recommend checking triglycerides when appropriate. See full RD assessment for further details.
[2021-05-25] MEDS: levofloxacin-dextrose 5 % 750 MG/150 ML PREMIX 100 MG IV (14:05)
--- NOTE | 2021-05-25 15:16 | PC.OT ---
OT NOTE; HOLD OT TODAY DUE TO SEDATION ON VENT.
[2021-05-25] MEDS: propofol 1,000 MG/100 ML INJ 27.22 MG IV ×2 (17:21→20:39)
--- NOTE | 2021-05-25 19:01 | PC.NURSE ---
Shift Note Frequent safety and comfort rounds continue. Orders and/or nursing care completed as indicated. Patient monitored for response to intervention and treatment. SHift summary: patient was placed supine at 0900 and tolerated the move well. Received both a soap suds and milk and molasses enema. Neither produced a bowel movement. After being place dsupine, the patient was able to have their sedation reduced. Verwed and nimbex were shut off. Now is on propofol at 50 and fentanyl at 150. Patient has followed simple commands such as squeeze fingers and open your eyes, but not reliably.
--- NOTE | 2021-05-25 19:36 | PC.NURSE ---
Patients bath done at this time. Skin assessed. Skin tear to coccyx open to air.
--- NOTE | 2021-05-25 20:49 | PC.NURSE ---
Versed gtt restarted at this time due to increased agitation and risk of potentially losing airway.
[2021-05-26] VITALS (50 sets, daily range): BP systolic 102–139; BP diastolic 62–96; PULSE 63–99; RESP 22–30; TEMP 36.8–37.2; O2SAT 85–98
[2021-05-26] MEDS: propofol 1,000 MG/100 ML INJ 27.22 MG IV ×2 (00:27→22:01)
[2021-05-26] MEDS: ipratropium-albuterol 3 mL Neb INHALATION ×4 (02:56→20:02)
[2021-05-26] MEDS: propofol 1,000 MG/100 ML INJ 21.77 MG IV ×3 (04:32→14:25)
[2021-05-26] MEDS: cefepime 1,000 MG in sodium chloride 0.9% (plus) 50 ML 100 MG IV ×2 (04:32→17:43)
[2021-05-26 05:21] LABS: Basophils % 0.1 %; Eosinophils # 0.1 10^3/uL (0.0-0.8); Eosinophils % 1.5 %; Hematocrit 30.7 % (37.0-47.0); Hemoglobin 9.5 g/dL (11.5-15.3); Lymphocytes # 1.6 10^3/uL (0.8-4.8); Lymphocytes % 22.3 %; Mean Corpuscular HGB Conc 30.9 g/dL (30.0-36.0); Mean Corpuscular Hemoglobin 24.3 pg (28.0-34.0); Mean Corpuscular Volume 78.5 fl (81-99); Mean Platelet Volume 9.4 fL (7.4-10.4); Monocytes # 0.5 10^3/uL (0.2-0.9); Monocytes % 6.5 %; Neutrophils # 4.99 10^3/uL (1.8-7.7); Neutrophils % 68.1 %; Nucleated Red Blood Cells % 0 %; Platelet Count 225 10^3/cmm (130-400); Red Blood Count 3.91 10^6/uL (4.1-5.3); White Blood Count 7.3 10^3/uL (4.0-10.0)
[2021-05-26 06:07] LABS: Alkaline Phosphatase 68 IU/L (35-105); Blood Urea Nitrogen 12 mg/dL (6-20); Calcium 8.2 mg/dL (8.5-10.5); Carbon Dioxide 28 mmol/L (22-29); Chloride 100 mmol/L (98-107); Globulin 2.7 g/dL (1.3-4.6); Glomerular Filtration Rate 229.3 mL/min (90-130); Glucose 103 mg/dL (65-115); Osmolality Calculated 286 mOsm/kg (285-295); Sodium 138 mmol/L (136-145); Total Bilirubin 0.2 mg/dL (0.15-1.2); Total Protein 5.7 g/dL (6.6-8.7)
[2021-05-26 06:09] LABS: Anion Gap 12.9 (5-19)
[2021-05-26 06:19] LABS: Alanine Aminotransferase < 5 U/L (0-33); Aspartate Amino Transferase 5 U/L (0-32)
[2021-05-26 06:23] LABS: Potassium 2.9 mmol/L (3.5-5.1)
[2021-05-26] MEDS: enoxaparin 40 mg/0.4 mL Syringe SUBCUT (06:50)
[2021-05-26] MEDS: potassium chloride premix 40 MEQ/100 ML PREMIX 25 MEQ IV (06:51)
[2021-05-26 07:28] LABS: Magnesium 2.1 mg/dL (1.7-2.3); Phosphorus 2.6 mg/dL (2.5-4.5)
--- NOTE | 2021-05-26 07:30 | NUR.SHIFT ---
Orbital area appears edematous. Skin appears to be intact but does have some flushing primarily under skin and arms. Will monitor throughout shift.
[2021-05-26] MEDS: levothyroxine 100 mcg SDV 37.5 MCG IVP (08:35)
[2021-05-26] MEDS: dexamethasone 10 mg/mL INJ 6 MG IVP (08:37)
[2021-05-26] MEDS: cyanocobalamin 1,000 mcg Tablet 1000 MCG PO (08:40)
[2021-05-26] MEDS: ascorbic acid 500 mg Tablet 1000 MG PO ×2 (08:40→17:41)
[2021-05-26] MEDS: sennosides-docusate Tablet 1 TAB PO (08:40)
[2021-05-26] MEDS: folic acid 1 mg Tablet PO (08:40)
[2021-05-26] MEDS: pantoprazole 40 mg SDV IVP ×2 (08:41→20:52)
[2021-05-26] MEDS: polyethylene glycol 3350 Pkt 17 gm PO (08:41)
[2021-05-26] MEDS: zinc gluconate 50 mg Tablet PO (08:41)
[2021-05-26] MEDS: cholecalciferol (vitamin D3) 1,000 unit Tablet 2000 UNIT PO (08:41)
[2021-05-26] MEDS: vancomycin 1,500 MG/300 ML PIGGYBACK 200 MG IV (08:42)
--- NOTE | 2021-05-26 09:21 | PC.SOCIAL ---
IMM Update Discussed patient's medicare rights with patient's daughter Sheeba, via phone call. Verbalized understanding. Placed initialed, timed, dated copy in chart.
[2021-05-26 09:25] LABS: Glucose Point of Care 109 mg/dL (70-110)
--- NOTE | 2021-05-26 12:34 | PC.OT ---
OT TREATMENT WITHHELD DUE TO ON VENT WITH SEDATION.
[2021-05-26] MEDS: levofloxacin-dextrose 5 % 750 MG/150 ML PREMIX 100 MG IV (14:09)
--- NOTE | 2021-05-26 14:24 | PC.RESP ---
RT Shift Note Frequent safety and respiratory rounds continue. Orders completed as indicated. Patient monitored pre and post treatments throughout shift. Patient [Did. tolerate treatments appropriately. Condition [.DidNotChange]. Patient and/or authorization representative educated on respiratory treatment and medications. Patient and/or authorization representative [unable to comprehend. Will continue to monitor patient progress.
[2021-05-26] MEDS: lanolin oint 7 gm 1 APPLIC TOPICAL (14:57)
[2021-05-26] MEDS: propofol 1,000 MG/100 ML INJ 24.49 MG IV (18:14)
--- NOTE | 2021-05-26 18:21 | PC.NURSE ---
Pt has had overall uneventful day. Appeared restful for the most part. Occasional dishevelling of bed attempting to reposition self. 2 person assist repositioning and pt became restful again every time. Pt indicates understanding and answers questions by shaking of head answering yes or no. Smiles frequently. Skin unremarkable. Reddened/flushed areas under chin, face and arms have shown no change during my shift. Orbital area remains somewhat edematous. Pt continues to require a great deal of sedation but remains arousable. IV sedation rates are as charted.
--- NOTE | 2021-05-26 18:46 | PM.PN ---
Subjective Subjective: Interval history: 55 year old female who presented to the emergency room with increasing difficulty breathing and low oxygen levels. Her oxygen requirements subsequently increased she was transitioned to BiPAP and was emergently intubated. She has been placed on remdesivir and dexamethasone. Currently CMV, 440, 10/ FiO2 is 70%. Patient remained on vent overnight. Sedated. On propofol, versed, fentanyl. Medications: Reviewed: Yes Vitals/I&O/Wt Last Vital Signs Temp 98.2 F 05/26/21 17:00 Pulse 90 05/26/21 17:30 Resp 23 H 05/26/21 17:27 BP 130/88 05/26/21 17:30 Pulse Ox 90 05/26/21 17:30 05/26/21 05/26/21 05/26/21 06:59 14:59 22:59 Intake Total 821.8 / 2392.209 324.264 / 324.264 91.429 / 415.693 Output Total 750 / 2150 1650 / 1650 Balance 71.8 / 242.209 324.264 / 324.264 -1558.571 / -1234.307 Weight last 48 hrs Weight 86.835 kg Weight 88.677 kg Physical Exam Narrative: EXAM NARRATIVE: General-sedated on vent HEENT-ET tube CVS -NSR Chest- Vented sound b/l Abdomen- non-distended : Lopez Extremities- No edema Urinary Catheter Management^: Lopez: Cath Placed During This Visit: yes Reason for Continuing Indwelling Catheter: Accurate Measurement of Urinary Output in Critically Ill Patients Urinary Catheter Date of Insertion: 05/15/21 Urinary Catheter Time of Insertion: 11:56 Data : 05/26/21 04:11 05/26/21 04:11 Micro: Microbiology 05/26/21 08:49 Gram Stain - Final Sputum - Endotracheal Tube Aspirate 05/26/21 14:30 Occult Blood (FIT) - Final Stool Routine Collection 05/25/21 10:02 Gram Stain - Final Sputum - Endotracheal Tube Aspirate Sputum Culture - Preliminary 05/20/21 15:58 Blood Culture - Final Blood NO GROWTH AFTER 5 DAYS 05/20/21 15:50 Blood Culture - Final Blood NO GROWTH AFTER 5 DAYS A&P Assessment and plan (1) Acute respiratory distress syndrome (ARDS) due to COVID-19 virus: Status: Acute (2) Pneumothorax: Status: Acute (3) Methadone dependence: Status: Chronic (4) Hypothyroidism: Status: Chronic Qualifiers: Hypothyroidism type: acquired Qualified Code(s): E03.9 - Hypothyroidism, unspecified (5) Benign essential HTN: Status: Chronic Additional A&P Information #Acute Hypoxic respiratory failure #Covid 19 Pneumonia #pneumothorax --Imaging reveals scattered nonspecific bilateral pulmonary groundglass lesions --Negative for DVT or PE --Currently intubated mechanically ventilated requiring FiO2 70% - wean as tolerated --previous Concern for possible pneumothorax pulmonary and CT surgery consulted --later evaluated likley subcutaneous pneumonthorax --Off nimbex - s/p proning x 3 - d/w staff --Propofol, fentanyl, Versed for sedation --Continue dexamethasone completed remdesivir Levophed as needed --Actemra given May 20, 2021 --Empiric antibiotics vancomycin, cefepime and Levaquin #Hypokalemia --K 2.5- Replaced in AM --Repeat BMP in am #chronic opiod dependence --Takes 75 mg of methadone daily at home --Continue fentanyl per protocol --Continue gabapentin #Hypothyroidism --TSH 1.32, continue levothyroxine. #History of Vance-en-y gastric bypass --complicates history, continue supplements DVT: Lovenox Disposition: Status critical Attestations Medical Necessity Statement*: Will Require further hospitalization for management COVID19 related respiratory failure on vent Time Spent in Patient Care: Greater than 35 minutes (>than 50% of time spent in counselling and/or direct pt care on unit). Procedures Arterial Line Size (Gauge): 20 Coding Level of Care Code Acute Configuration Management Specialist for Ch[facility] Fwd Diagnoses Acute respiratory distress syndrome (ARDS) due to COVID-19 virus U07.1; J80 Pneumothorax J93.9 Methadone dependence F11.20 Hypothyroidism E03.9 Hypothyroidism type: acquired Benign essential HTN I10
[2021-05-26] MEDS: vancomycin 1,500 MG/300 ML PIGGYBACK 150 MG IV (20:53)
[2021-05-26 20:56] LABS: Vancomycin Trough 9.3 ug/mL (10-15)
--- NOTE | 2021-05-26 21:55 | PC.PHAR ---
Vancomycin trough level is 9.3. Dosage is increased from 1500mg every 12 hours to 1250mg every 8 hours with a trough to be obtained before the fourth 1250mg dose.
[2021-05-27] VITALS (43 sets, daily range): BP systolic 99–146; BP diastolic 64–106; PULSE 64–91; RESP 22–33; TEMP 36.5–37.2; O2SAT 72–96
[2021-05-27] MEDS: propofol 1,000 MG/100 ML INJ 27.22 MG IV ×4 (01:31→16:27)
[2021-05-27] MEDS: ipratropium-albuterol 3 mL Neb INHALATION ×4 (03:45→20:00)
--- NOTE | 2021-05-27 04:30 | PC.NURSE ---
Shift Note Frequent safety and comfort rounds continue. Orders and/or nursing care completed as indicated with repositioning and oral care done Q2. Patient monitored for response to sedation for intubation. Patient sedated appropriately, while still able to follow commands, and opens eyes spontaneous. Denies pain at this time. Education provided includes skin care, repositioning and bathing. Patient nods and follows along with teaching. Vital signs stable throughout shift, no increase on FiO2. Will continue to monitor.
[2021-05-27] MEDS: cefepime 1,000 MG in sodium chloride 0.9% (plus) 50 ML 100 MG IV ×2 (04:45→18:20)
[2021-05-27] MEDS: vancomycin 1,250 MG/250 ML PIGGYBACK 250 MG IV ×2 (04:46→13:47)
[2021-05-27 05:07] LABS: ABG PCO2 40.6 mmHg (35-45); ABG PH Result 7.47 (7.35-7.45); Arterial Blood Gas Hematocrit 28.4 % (37-47); Base Excess ABG 5.5 mmol/L (-2.0-2.0); Blood Gas Allen Test Pos; Blood Gas Operator Identificat JB; Blood Gas Sample Site Radial, right; Blood Gas Sample Type Arterial; HCO3 ABG 29.6 mmol/L (22-26); Oxygen Device VENT; PO2 ABG 56.5 mmHg (80.0-100.0)
[2021-05-27 05:08] LABS: Blood Gas Tidal Volume 0.44
[2021-05-27] MEDS: enoxaparin 40 mg/0.4 mL Syringe SUBCUT (06:33)
--- NOTE | 2021-05-27 07:00 | XR_ITS ---
WS: [id number] Portable AP semiupright chest, 05/27/2021 Clinical Data: respiratory failure Comparison: Portable chest, 05/23/2021. Findings: The bilateral pulmonary opacities are not changed. The subcutaneous emphysema has diminishe d slightly. The right internal jugular venous catheter, endotracheal tube and nasogastric tube remain in same position. The heart size is same. Monitor leads are on the chest wall. XR/XR chest 1V portable [id number] Impression: 1. No change in bilateral pulmonary opacities consistent with pneumonia. 2. No change in multiple tubes. 3. Slightly decrease in subcutaneous emphysema.
[2021-05-27 07:19] LABS: Alanine Aminotransferase 11 U/L (0-33); Alkaline Phosphatase 67 IU/L (35-105); Blood Urea Nitrogen 10 mg/dL (6-20); C Reactive Protein 0.4 mg/L (0.0-4.9); Calcium 8.3 mg/dL (8.5-10.5); Carbon Dioxide 24 mmol/L (22-29); Chloride 101 mmol/L (98-107); Ferritin 64 ng/mL (15-150); Globulin 2.3 g/dL (1.3-4.6); Glomerular Filtration Rate 366.1 mL/min (90-130); Glucose 99 mg/dL (65-115); Magnesium 2.1 mg/dL (1.7-2.3); Osmolality Calculated 285 mOsm/kg (285-295); Sodium 138 mmol/L (136-145); Total Bilirubin 0.2 mg/dL (0.15-1.2); Total Protein 5.3 g/dL (6.6-8.7)
[2021-05-27 07:20] LABS: Anion Gap 16.3 (5-19); Potassium 3.3 mmol/L (3.5-5.1)
[2021-05-27 07:21] LABS: Aspartate Amino Transferase 24 U/L (0-32)
[2021-05-27 07:26] LABS: Procalcitonin 0.07 ng/mL (0-0.5)
[2021-05-27] MEDS: cyanocobalamin 1,000 mcg Tablet 1000 MCG PO (08:11)
[2021-05-27] MEDS: zinc gluconate 50 mg Tablet PO (08:11)
[2021-05-27] MEDS: sennosides-docusate Tablet 1 TAB PO (08:11)
[2021-05-27] MEDS: ascorbic acid 500 mg Tablet 1000 MG PO ×2 (08:11→18:20)
[2021-05-27] MEDS: folic acid 1 mg Tablet PO (08:11)
[2021-05-27] MEDS: cholecalciferol (vitamin D3) 1,000 unit Tablet 2000 UNIT PO (08:11)
[2021-05-27] MEDS: dexamethasone 10 mg/mL INJ 6 MG IVP (08:12)
[2021-05-27] MEDS: levothyroxine 100 mcg SDV 37.5 MCG IVP (08:13)
[2021-05-27] MEDS: polyethylene glycol 3350 Pkt 17 gm PO (08:14)
[2021-05-27] MEDS: pantoprazole 40 mg SDV IVP ×2 (08:15→20:41)
--- NOTE | 2021-05-27 10:00 | PC.NURSE ---
Questioned Dr Matthews regarding IV sedation goals. States he is fine with current sedation rates but if one were to be discontinued first, Versed would be his first choice. Also requested Dr Matthews to assess pt's skin around left eye. Appears even more edematous than yesterday. Dr Matthews not concerned about area at this time.
--- NOTE | 2021-05-27 10:57 | XR_ITS ---
WS: [id number] Portable AP upright chest, 05/27/2021, 1111 hours Clinical Data: OG PLACEMENT Comparison: Portable chest, 05/27/2021, 0517 hours Findings: The orogastric tube has been replaced. It still ends in the fundus of stomach. There are up per abdominal surgical clips. The endotracheal tube and right internal jugular venous catheter remain the same. The bilateral pulmonary opacities have not changed. The subcutaneous emphysema is noted th roughout the chest and in the supraclavicular region. Monitor leads are on the chest wall. XR/XR chest 1V portable [id number] Impression: Oral gastric tube which appears to end in fundus of stomach.
[2021-05-27 11:04] LABS: Basophils % 0.2 %; Eosinophils # 0.1 10^3/uL (0.0-0.8); Eosinophils % 1.7 %; Hematocrit 29.3 % (37.0-47.0); Lymphocytes # 1.6 10^3/uL (0.8-4.8); Lymphocytes % 24.6 %; Mean Corpuscular HGB Conc 30.7 g/dL (30.0-36.0); Mean Corpuscular Hemoglobin 24.5 pg (28.0-34.0); Mean Corpuscular Volume 79.6 fl (81-99); Mean Platelet Volume 9.6 fL (7.4-10.4); Monocytes # 0.4 10^3/uL (0.2-0.9); Monocytes % 6.7 %; Neutrophils # 4.15 10^3/uL (1.8-7.7); Neutrophils % 65.1 %; Nucleated Red Blood Cells % 0 %; Platelet Count 198 10^3/cmm (130-400); Red Blood Count 3.68 10^6/uL (4.1-5.3); Red Cell Distribution Width 18.1 % (12.1-15.1); White Blood Count 6.4 10^3/uL (4.0-10.0)
[2021-05-27] MEDS: levofloxacin-dextrose 5 % 750 MG/150 ML PREMIX 100 MG IV (16:26)
--- NOTE | 2021-05-27 17:05 | PC.NURSE ---
Pt's neck appears to be more enlarged than has been previously. Right IJ still providing blood return. Crepitis-like feeling palpated in upper right cheek and upper right neck. Dr Matthews phoned. Previously repositioned with SHARA Alvarado, and SHARA Lopez, approximately one hour ago and neck was not as enlarged as it is now.
--- NOTE | 2021-05-27 17:20 | PC.NURSE ---
Chest and neck xray ordered.
--- NOTE | 2021-05-27 17:29 | XRR_ITS ---
PROCEDURE INFORMATION: Exam: XR Chest Exam date and time: 05/27/2021 5:29 PM Age: 55 years old Clinical indication: Shortness of breath; Additional info: Enlarged neck. PT intubated TECHNIQUE: Imaging protocol: XR of the chest. Views: 1 view. Total images: 1 COMPARISON: CR XR chest 1V portable [id number] 05/27/2021 11:09 AM FINDINGS: Tubes, catheters and devices: Endotracheal tube tip appears in satisfactory position above the emily. Nasogastric tube tip below the diaphragm out of the field of view. Right IJ catheter tip distal SVC. Right PICC line tip distal SVC. EKG leads. Lungs: Bilateral mixed diffuse ground-glass interstitial lung disease and patches of consolidated alveolar airspace disease of active pneumonitis/pneumonia. Pleural spaces: Suspected very small right apical pneumothorax. Heart/Mediastinum: Potential component of pneumomediastinum. Cardiac structures and configuration appears grossly stable. Bones/joints: Unremarkable as visualized. Soft tissues: Extensive soft tissue emphysema throughout the neck and upper thorax. XR/XR chest 1V portable [id number] IMPRESSION: 1. Suspected very small right apical pneumothorax. 2. Extensive soft tissue emphysema throughout the neck and upper thorax. 3. Potential component of pneumomediastinum. 4. Bilateral mixed diffuse ground-glass interstitial lung disease and patches of consolidated alveolar airspace disease of active pneumonitis/pneumonia. 5. Life support lines as detailed in text.
--- NOTE | 2021-05-27 17:30 | PC.NURSE ---
Spoke with Dr Matthews via telephone. Stated pt previously diagnosed with subcutaneous emphysema. Informed physician of new location. No new orders at this time.
--- NOTE | 2021-05-27 17:30 | XRR_ITS ---
PROCEDURE INFORMATION: Exam: XR Soft Tissue Neck Exam date and time: 05/27/2021 5:30 PM Age: 55 years old Clinical indication: Mass, lump, or swelling in neck; Bilateral; Additional info: Enlarged neck TECHNIQUE: Imaging protocol: XR of the soft tissues of the neck. Total images: 2 COMPARISON: CT cervical spin wo con* [id number] 12/18/2020 10:55 PM FINDINGS: Tubes, catheters and devices: Endotracheal tube. Nasogastric tube. Right IJ catheter. Airway: Limited assessment. Soft tissues: Extensive soft tissue emphysema involving all of the soft tissue structures within the field of view from the skull base distally. Bones/joints: Limited assessment grossly unremarkable. XR/XR soft tissue neck [id number] IMPRESSION: Extensive soft tissue emphysema involving all of the soft tissue structures within the field of view from the skull base distally.
--- NOTE | 2021-05-27 17:53 | P.PN_ITS ---
Subjective Subjective: Interval history: 55-year-old with past medical history significant for anxiety, depression, urinary incontinence with hx of uretheral stricture, Vance-en-Y gastric bypass, hypertension, hypothyroidism, neuropathy, peripheral vascular disease,Who presented to the hospitalOn 05/15 with respiratory distress. This was associated with dizziness, generalized weakness and recurrent falls.Laboratory workup on arrival showed a WBC of 3.1, hemoglobin of 8.2, hematocrit 28.0 and platelet count 141. Sodium 134, potassium 4.5, chloride 96, bicarb 30, BUN 15 and creatinine of 0.7 with a glucose of 168.Imaging studies included chest x-ray which showed bilateral pulmonary consol idation increased since prior x-ray on 05/12/2021.CT of chest was negative for pulmonary embolism and showed findings similar to chest x-ray.Bilateral venous duplex of lower extremity was performed which was negative for acute DVT. Patient was found to have COVID-19 infection.She was started on a 5 day course of Remdesivir which she completed. Additionally was started on dexamethasone and broad spectrum antibiotics including vancomycin, Primixin and Levaquin. Blood culture had not shown any growth. Sputum culture showed growth of yeast. MRSA culture was negative. Was trialed on Bipap however was requiring 100% Fio2. On 05/20 she was intubated and placed on mechanical ventilation. On 05/20 she was also treated with Actemra. Shortly after intubation patient was noted to have subcutaneous emphysema. She was able to complete Proning x 3. Taken off paralytics. On 05/22 chest xray had shown possible development of trace right sided pneumothorax in addition to pneumomediastinum. Apparently this was reviewed with cardiothorasic surgery. Ptx finding was questionable and ruled out. No chest tube was placed. Repeat X-ray on 05/23 and 06/23 did not show any evidence of ptx. Was noted to have ongoing extensive bilateral pulmonary infiltrates with extensive subQ emphysema around chest and small pneumomediastinum. Echocardiogram was also performed which showed preserved EF, no regional wall motion abnormality, normal diastolic function. 05/27 Fio2 weaned to 65%. ABG showed Ph 7.47, PCO2 of 40.6, Po2 of 56.5, HCO3 of 29.6 on 75% Fio2, TV 440, PEEP 12. I&O -> neg 6.715L balance since admission. Tmax 99.0 Medications: Reviewed: Yes Vitals/I&O/Wt Last Vital Signs Temp 97.9 F 05/27/21 08:00 Pulse 77 05/27/21 16:00 Resp 27 H 05/27/21 16:03 BP 139/91 05/27/21 16:00 Pulse Ox 90 05/27/21 16:03 05/27/21 05/27/21 05/27/21 06:59 14:59 22:59 Intake Total 1044.788 / 2333.754 163.2 / 163.2 100 / 263.2 Output Total 1600 / 3250 Balance -555.212 / -916.246 163.2 / 163.2 100 / 263.2 Weight last 48 hrs Weight 87.09 kg Weight 86.835 kg Physical Exam Narrative: EXAM NARRATIVE: General-sedated on vent, subQ emphysema HEENT-ET tube CVS -NSR Chest- Vented sound b/l Abdomen- non-distended : Lopez Extremities- No edema Urinary Catheter Management^: Lopez: Cath Placed During This Visit: yes Reason for Continuing Indwelling Catheter: Accurate Measurement of Urinary Output in Critically Ill Patients Urinary Catheter Date of Insertion: 05/15/21 Urinary Catheter Time of Insertion: 11:56 Data : 05/27/21 06:15 05/27/21 06:15 Micro: Microbiology 05/25/21 10:02 Gram Stain - Final Sputum - Endotracheal Tube Aspirate Sputum Culture - Preliminary Yeast 05/26/21 08:49 Gram Stain - Final Sputum - Endotracheal Tube Aspirate Sputum Culture - Preliminary 05/26/21 14:30 Occult Blood (FIT) - Final Stool Routine Collection A&P Assessment and plan (1) Acute respiratory distress syndrome (ARDS) due to COVID-19 virus: Status: Acute (2) Pneumothorax: Status: Acute (3) Methadone dependence: Status: Chronic (4) Hypothyroidism: Status: Chronic Qualifiers: Hypothyroidism type: acquired Qualified Code(s): E03.9 - Hypothyroidism, unspecified (5) Benign essential HTN: Status: Chronic Additional A&P Information #Acute Hypoxic respiratory failure #Covid 19 Pneumonia --Imaging reveals scattered nonspecific bilateral pulmonary groundglass lesions --Negative for DVT or PE --05/20 intubated mechanically ventilated requiring FiO2 65% - wean as tolerated --Previous concern for possible pneumothorax pulmonary and CT surgery consulted --No CT placed. Repeat imaging did not show ptx. Noted to have SQ emphysema --Off nimbex - s/p proning x 3 - d/w staff --Propofol, fentanyl, Versed for sedation --Continue dexamethasone (D12) - Completed remdesivir plus Actemra given May 20, 2021 --D/C Vancomycin - MRSA screen negative --Continue cefepime and Levaquin --Lasix 20 mg IV x 1 today - gentle diuresis PRN - Neg 6.7L since admission --Increaseing Sq emphysema - F/u on xray. #Hypokalemia --K 3.0 --Repeat BMP in am #Chronic Methadone Dependence --Takes 75 mg of methadone daily at home --Continue fentanyl per protocol --Continue gabapentin #Hypothyroidism --TSH 1.32, continue Levothyroxine. #History of Vance-en-y gastric bypass --Complicates history, continue supplements #FEN --Initiate tube feeding. DVT: Lovenox Disposition: Status critical Attestations Medical Necessity Statement*: Will continue hospitalization for management of covid-19 respiratory failure Time Spent in Patient Care: Greater than 35 minutes (>than 50% of time spent in counselling and/or direct pt care on unit) . Critical Care Time: Critical Care Time (min): 55 Procedures Arterial Line Size (Gauge): 20 Coding Level of Care Code Acute Accreditation Coordinator for [facility] Fwd Diagnoses Acute respiratory distress syndrome (ARDS) due to COVID-19 virus U07.1; J80 Pneumothorax J93.9 Methadone dependence F11.20 Hypothyroidism E03.9 Hypothyroidism type: acquired Benign essential HTN I10
[2021-05-27] MEDS: FUROsemide 10 mg/mL SDV 2mL 20 MG IVP (18:37)
[2021-05-27] MEDS: potassium chloride premix 100 ML 50 MEQ IV (18:38)
[2021-05-27] MEDS: propofol 1,000 MG/100 ML INJ 24.49 MG IV (21:14)
[2021-05-28] VITALS (35 sets, daily range): BP systolic 90–137; BP diastolic 53–87; PULSE 63–106; RESP 22–28; TEMP 36.6–37.2; O2SAT 83–95
[2021-05-28] MEDS: propofol 1,000 MG/100 ML INJ 24.49 MG IV ×5 (00:49→21:39)
--- NOTE | 2021-05-28 01:00 | XRR_ITS ---
PROCEDURE INFORMATION: Exam: XR Chest Exam date and time: 05/28/2021 1:00 AM Age: 55 years old Clinical indication: Shortness of breath; Additional info: Assess progression of ptx. TECHNIQUE: Imaging protocol: XR of the chest. Views: 1 view. COMPARISON: CR (CHEST, ) 05/27/2021 6:07 PM FINDINGS: Tubes, catheters and devices: The endotracheal tube ends 1 cm below the emily. Suggest retracting 2 cm. A nasogastric tube extends into the stomach and extends beyond the limits of the film. A right jugular catheter still ends in the distal superior vena cava. A right arm PICC still ends in the superior vena cava. Lungs: Persisting bilateral multifocal upper and lower lobe infiltrates. Pleural spaces: No visible pneumothorax. Heart/Mediastinum: Unremarkable. No cardiomegaly. Bones/joints: Unremarkable. Soft tissues: Persisting extensive bilateral neck and chest subcutaneous emphysema. XR/XR chest 1V portable [id number] IMPRESSION: 1. Persisting bilateral multifocal pneumonia. 2. Persisting bilateral subcutaneous emphysema. 3. No visible pneumothorax. 4. Endotracheal tube tip in the proximal right mainstem bronchus. Suggest retracting 2 cm
--- NOTE | 2021-05-28 01:30 | XRR_ITS ---
PROCEDURE INFORMATION: Exam: XR Chest Exam date and time: 05/28/2021 1:30 AM Age: 55 years old Clinical indication: Device placement; Ett placement (vent status); Patient HX: Check S/P adjustment to et depth. ; Additional info: Et adjustment TECHNIQUE: Imaging protocol: XR of the chest. Views: 1 view. COMPARISON: CR (CHEST, ) 05/28/2021 12:37 AM FINDINGS: Tubes, catheters and devices: The endotracheal tube ends at the level of the emily. The right jugular catheter ends in the distal superior vena cava. The right arm PICC ends in the superior vena cava. Nasogastric tube ends in the proximal stomach. Lungs: See above. Pleural spaces: Unremarkable. No pleural effusion. No pneumothorax. Heart/Mediastinum: Unremarkable. No cardiomegaly. Bones/joints: Unremarkable. Soft tissues: There is persisting extensive bilateral chest and neck subcutaneous emphysema. Other findings: Epigastric postop changes. XR/XR chest 1V portable [id number] IMPRESSION: 1. Unchanged bilateral pneumonia. 2. Unchanged bilateral subcutaneous emphysema.
[2021-05-28] MEDS: ipratropium-albuterol 3 mL Neb INHALATION ×4 (02:54→20:43)
--- NOTE | 2021-05-28 05:12 | PC.NURSE ---
Shift Note Frequent safety and comfort rounds continue. Orders and/or nursing care completed as indicated. Patient monitored for response to intervention and treatment(s). Education provided includes repositioning, comfort, medication. Patient and/or international account representative, nods for understanding. Will continue to monitor. Vital signs remain stable throughout shift. Good output, oral care done every 2 hours.
[2021-05-28 05:33] LABS: Vancomycin Trough 11.1 ug/mL (10-15)
[2021-05-28] MEDS: cefepime 1,000 MG in sodium chloride 0.9% (plus) 50 ML 100 MG IV ×2 (06:22→17:47)
[2021-05-28] MEDS: dexamethasone 10 mg/mL INJ 6 MG IVP (07:58)
[2021-05-28] MEDS: enoxaparin 40 mg/0.4 mL Syringe SUBCUT (07:58)
[2021-05-28] MEDS: pantoprazole 40 mg SDV IVP ×2 (07:59→21:02)
[2021-05-28] MEDS: zinc gluconate 50 mg Tablet PO (07:59)
[2021-05-28] MEDS: sennosides-docusate Tablet 1 TAB PO (07:59)
[2021-05-28] MEDS: folic acid 1 mg Tablet PO (07:59)
[2021-05-28] MEDS: cyanocobalamin 1,000 mcg Tablet 1000 MCG PO (07:59)
[2021-05-28] MEDS: ascorbic acid 500 mg Tablet 1000 MG PO ×2 (07:59→17:04)
[2021-05-28] MEDS: cholecalciferol (vitamin D3) 1,000 unit Tablet 2000 UNIT PO (07:59)
[2021-05-28] MEDS: polyethylene glycol 3350 Pkt 17 gm PO (08:00)
[2021-05-28] MEDS: levothyroxine 100 mcg SDV 37.5 MCG IVP (08:00)
--- NOTE | 2021-05-28 09:00 | PC.NURSE ---
Upon assessment, OG tube discovered not in place. Pt has strong cough and tongue appears to displace tubing often. Larger OG reinserted after multiple attempts. Pt tolerated all well.
--- NOTE | 2021-05-28 09:22 | XRR_ITS ---
PROCEDURE INFORMATION: Exam: XR Chest Exam date and time: 05/28/2021 9:22 AM Age: 55 years old Clinical indication: Device placement; Ng tube; Additional info: Og placement TECHNIQUE: Imaging protocol: XR of the chest. Views: 1 view. COMPARISON: CR XR chest 1V portable [id number] 05/28/2021 1:27 AM FINDINGS: Tubes, catheters and devices: Endotracheal tube is in satisfactory position. Right IJ approach central line is in satisfactory position, with distal tip in the SVC, approximately 3 cm above the SVC/RA junction. Right sided PICC is in satisfactory position, with distal tip in the SVC, approximately 7 cm above the SVC/RA junction. Surgical clips are seen projecting over the upper abdomen. High position of feeding tube, with proximal hole at the level of the GE junction. Lungs: Low lung volumes. Persistent bilateral airspace opacities. No large pleural effusion. No clear evidence of pneumothorax. Pleural spaces: See Lungs finding. Heart/Mediastinum: Stable cardiomediastinal silhouette. Bones/joints: No acute osseous injury identified. Soft tissues: Subcutaneous emphysema is again seen over the chest wall bilaterally. XR/XR chest 1V portable [id number] IMPRESSION: 1. Persistent bilateral airspace opacities. 2. Unchanged extensive bilateral subcutaneous emphysema peer 3. High position of feeding tube, with proximal hole at the level of the GE junction, advancement is recommended.
--- NOTE | 2021-05-28 11:32 | P.PN_ITS ---
Subjective Subjective: Interval history: 55-year-old with past medical history significant for anxiety, depression, urinary incontinence with hx of uretheral stricture, Vance-en-Y gastric bypass, hypertension, hypothyroidism, neuropathy, peripheral vascular disease,Who presented to the hospitalOn 05/15 with respiratory distress. This was associated with dizziness, generalized weakness and recurrent falls.Laboratory workup on arrival showed a WBC of 3.1, hemoglobin of 8.2, hematocrit 28.0 and platelet count 141. Sodium 134, potassium 4.5, chloride 96, bicarb 30, BUN 15 and creatinine of 0.7 with a glucose of 168.Imaging studies included chest x-ray which showed bilateral pulmonary consol idation increased since prior x-ray on 05/12/2021.CT of chest was negative for pulmonary embolism and showed findings similar to chest x-ray.Bilateral venous duplex of lower extremity was performed which was negative for acute DVT. Patient was found to have COVID-19 infection.She was started on a 5 day course of Remdesivir which she completed. Additionally was started on dexamethasone and broad spectrum antibiotics including vancomycin, Primixin and Levaquin. Blood culture had not shown any growth. Sputum culture showed growth of yeast. MRSA culture was negative. Was trialed on Bipap however was requiring 100% Fio2. On 05/20 she was intubated and placed on mechanical ventilation. On 05/20 she was also treated with Actemra. Shortly after intubation patient was noted to have subcutaneous emphysema. She was able to complete Proning x 3. Taken off paralytics. On 05/22 chest xray had shown possible development of trace right sided pneumothorax in addition to pneumomediastinum. Apparently this was reviewed with cardiothorasic surgery. Ptx finding was questionable and ruled out. No chest tube was placed. Repeat X-ray on 05/23 and 06/23 did not show any evidence of ptx. Was noted to have ongoing extensive bilateral pulmonary infiltrates with extensive subQ emphysema around chest and small pneumomediastinum. Echocardiogram was also performed which showed preserved EF, no regional wall motion abnormality, normal diastolic function. 05/27 Fio2 weaned to 65%. ABG showed Ph 7.47, PCO2 of 40.6, Po2 of 56.5, HCO3 of 29.6 on 75% Fio2, TV 440, PEEP 12. I&O -> neg 6.715L balance since admission. Tmax 99.0 05/28 Patient was noted to have increasing Sq air. Reepeat chest xray in evening showed possible apical ptx. Repeat chest xray at 1 am did not show any evidence of ptx however ET tube appeared to be in Right main stem bronchus which was retracted. Patient was on 80% Fio2, responsive to commands. Nodding head no when asked if any pain. No fever overnight. Medications: Reviewed: Yes Vitals/I&O/Wt Last Vital Signs Temp 98.3 F 05/28/21 04:00 Pulse 82 05/28/21 09:03 Resp 28 H 05/28/21 10:55 BP 99/61 05/28/21 04:00 Pulse Ox 93 05/28/21 10:55 05/27/21 05/28/21 05/28/21 22:59 06:59 14:59 Intake Total 556.333 / 971.533 801.510 / 1773.043 50 / 50 Output Total 1450 / 1450 2600 / 4050 Balance -893.667 / -478.467 -1798.490 / -2276.957 50 / 50 Weight last 48 hrs Weight 86.636 kg Weight 87.09 kg Physical Exam Narrative: EXAM NARRATIVE: General-arousable on vent. t, subQ emphysema HEENT-ET tube CVS -NSR Chest- Vented sound b/l Abdomen- non-distended : Lopez Extremities- No edema Urinary Catheter Management^: Lopez: Cath Placed During This Visit: yes Reason for Continuing Indwelling Catheter: Accurate Measurement of Urinary Output in Critically Ill Patients Urinary Catheter Date of Insertion: 05/15/21 Urinary Catheter Time of Insertion: 11:56 Data : 05/27/21 06:15 05/27/21 06:15 Micro: Microbiology 05/25/21 10:02 Gram Stain - Final Sputum - Endotracheal Tube Aspirate Sputum Culture - Preliminary Yeast 05/26/21 08:49 Gram Stain - Final Sputum - Endotracheal Tube Aspirate Sputum Culture - Preliminary Yeast A&P Assessment and plan (1) Acute respiratory distress syndrome (ARDS) due to COVID-19 virus: Status: Acute (2) Pneumothorax: Status: Acute (3) Methadone dependence: Status: Chronic (4) Hypothyroidism: Status: Chronic Qualifiers: Hypothyroidism type: acquired Qualified Code(s): E03.9 - Hypothyroidism, unspecified (5) Benign essential HTN: Status: Chronic Additional A&P Information #Acute Hypoxic respiratory failure #Covid 19 Pneumonia --Imaging reveals scattered nonspecific bilateral pulmonary groundglass lesions --Negative for DVT or PE --05/20 intubated mechanically ventilated requiring FiO2 80% - wean as tolerated --Previous concern for possible pneumothorax pulmonary and CT surgery consulted --No CT placed. Repeat imaging 05/28 did not show ptx. Noted to have SQ emphysema --ET tube in Right mainstem - retracted --Off nimbex - s/p proning x 3 - d/w staff --Propofol, fentanyl, Versed for sedation --Continue dexamethasone (D12) - Completed remdesivir plus Actemra given May 20, 2021 --D/C Vancomycin - MRSA screen negative --Continue cefepime and Levaquin --Lasix 20 mg IV x 1 on 05/27 - gentle dieresis PRN - Neg 9.2L since admission --Repeat abg/chest xray in am --Repeat covid19 inflammatory labs in am #Hypokalemia --K 3.0 - Replaced --Repeat BMP now #Chronic Methadone Dependence --Takes 75 mg of methadone daily at home --Continue fentanyl per protocol --Continue gabapentin #Hypothyroidism --TSH 1.32, continue Levothyroxine. #History of Vance-en-y gastric bypass --Complicates history, continue supplements #FEN --Initiate tube feeding. DVT: Lovenox Disposition: Status critical, will request eval for possible transfer to select LTAC Attestations Medical Necessity Statement*: Require further hospitalization for management of COVID-19 Time Spent in Patient Care: Greater than 35 minutes (>than 50% of time spent in counselling and/or direct pt care on unit) . Critical Care Time: Critical Care Time (min): 45 Procedures Arterial Line Size (Gauge): 20 Coding Level of Care Code Acute Physical Therapist Technician for [facility] Fwd Diagnoses Acute respiratory distress syndrome (ARDS) due to COVID-19 virus U07.1; J80 Pneumothorax J93.9 Methadone dependence F11.20 Hypothyroidism E03.9 Hypothyroidism type: acquired Benign essential HTN I10
--- NOTE | 2021-05-28 12:00 | PC.NURSE ---
Pt's tongue covered in white substance. notified.
[2021-05-28 13:15] LABS: Anion Gap 15.9 (5-19); Blood Urea Nitrogen 12 mg/dL (6-20); Calcium 8.6 mg/dL (8.5-10.5); Carbon Dioxide 26 mmol/L (22-29); Chloride 100 mmol/L (98-107); Glomerular Filtration Rate 366.1 mL/min (90-130); Glucose 157 mg/dL (65-115); Osmolality Calculated 289 mOsm/kg (285-295); Potassium 3.9 mmol/L (3.5-5.1); Sodium 138 mmol/L (136-145)
[2021-05-28] MEDS: levofloxacin-dextrose 5 % 750 MG/150 ML PREMIX 100 MG IV (14:39)
--- NOTE | 2021-05-28 14:48 | PC.RESP ---
RT Shift Note Frequent safety and respiratory rounds continue. Orders completed as indicated. Patient monitored pre and post treatments throughout shift. Patient [Did.] tolerate treatments appropriately. Condition [DidNotChange]. Patient and/or livestock sales representative educated on respiratory treatment and medications. Patient and/or livestock sales representative [unable to comprehend]. Will continue to monitor patient progress.
--- NOTE | 2021-05-28 16:04 | PC.SOCIAL ---
IMM not Given IMM not updated. Pt is intubated & is not expected to discharge within the next 24-48hrs.
[2021-05-28] MEDS: fluconazole premix 200 MG/100 ML PREMIX 100 MG IV (16:43)
[2021-05-29] VITALS (36 sets, daily range): BP systolic 97–135; BP diastolic 63–86; PULSE 61–90; RESP 17–28; TEMP 36.8–37.2; O2SAT 84–96
[2021-05-29] MEDS: propofol 1,000 MG/100 ML INJ 24.49 MG IV ×2 (01:47→19:39)
[2021-05-29] MEDS: ipratropium-albuterol 3 mL Neb INHALATION ×4 (03:08→19:59)
[2021-05-29 04:43] LABS: Basophils % 0.2 %; Eosinophils # 0.2 10^3/uL (0.0-0.8); Hematocrit 32.2 % (37.0-47.0); Hemoglobin 9.5 g/dL (11.5-15.3); Lymphocytes % 32.8 %; Mean Corpuscular HGB Conc 29.5 g/dL (30.0-36.0); Mean Corpuscular Hemoglobin 23.2 pg (28.0-34.0); Mean Corpuscular Volume 78.5 fl (81-99); Mean Platelet Volume 10.2 fL (7.4-10.4); Monocytes # 0.7 10^3/uL (0.2-0.9); Monocytes % 8.1 %; Neutrophils # 5.09 10^3/uL (1.8-7.7); Neutrophils % 55.9 %; Nucleated Red Blood Cells % 0 %; Platelet Count 195 10^3/cmm (130-400); Red Cell Distribution Width 18.4 % (12.1-15.1); White Blood Count 9.1 10^3/uL (4.0-10.0)
[2021-05-29] MEDS: cefepime 1,000 MG in sodium chloride 0.9% (plus) 50 ML 100 MG IV ×2 (05:03→17:10)
[2021-05-29 05:05] LABS: Ferritin 58 ng/mL (15-150)
[2021-05-29] MEDS: propofol 1,000 MG/100 ML INJ 21.77 MG IV ×3 (05:05→15:14)
[2021-05-29 05:10] LABS: Anion Gap 15.5 (5-19); Blood Urea Nitrogen 9 mg/dL (6-20); C Reactive Protein 0.5 mg/L (0.0-4.9); Calcium 8.7 mg/dL (8.5-10.5); Carbon Dioxide 26 mmol/L (22-29); Chloride 101 mmol/L (98-107); Glomerular Filtration Rate 229.3 mL/min (90-130); Glucose 107 mg/dL (65-115); Osmolality Calculated 287 mOsm/kg (285-295); Potassium 3.5 mmol/L (3.5-5.1); Sodium 139 mmol/L (136-145)
[2021-05-29 05:11] LABS: Procalcitonin 0.06 ng/mL (0-0.5)
[2021-05-29 05:22] LABS: D Dimer 1.75 ug/mIFEU (0-0.59)
[2021-05-29 05:25] LABS: ABG PCO2 39.7 mmHg (35-45); ABG PH Result 7.49 (7.35-7.45); Arterial Blood Gas Hematocrit 27.2 % (37-47); Base Excess ABG 6.3 mmol/L (-2.0-2.0); Blood Gas Allen Test Pos; Blood Gas Sample Site Radial, right; Blood Gas Sample Type Arterial; Blood Gas Tidal Volume 0.44; HCO3 ABG 30.2 mmol/L (22-26); Oxygen Device VENT; PO2 ABG 75.9 mmHg (80.0-100.0)
--- NOTE | 2021-05-29 06:34 | PC.NURSE ---
Patient had one desat episode during shift, oxygen requirement increased to 85%. Otherwise vital signs remain stable throughout shift. Bath given and central line dressing changed. All gtt adjusted as needed. Oral care and repositioning done Q2. Will continue to monitor.
--- NOTE | 2021-05-29 07:00 | XRR_ITS ---
PROCEDURE INFORMATION: Exam: XR Chest Exam date and time: 05/29/2021 7:00 AM Age: 55 years old Clinical indication: Shortness of breath; Additional info: Respiratory failure TECHNIQUE: Imaging protocol: XR of the chest. Views: 1 view. COMPARISON: CR (CHEST, ) 05/28/2021 9:53 AM FINDINGS: Tubes, catheters and devices: Endotracheal tube is in satisfactory position. Feeding tube is in satisfactory position. Right IJ approach central line is in satisfactory position, with distal tip in the SVC, approximately 4 cm above the SVC/RA junction. Right sided PICC is in satisfactory position, with distal tip in the SVC, approximately 5 cm above the SVC/RA junction. Lungs: Low lung volumes. Persistent bilateral airspace opacities, mildly improved. No large pleural effusion or pneumothorax. Pleural spaces: See Lungs finding. Heart/Mediastinum: Stable cardiomediastinal silhouette. Bones/joints: No acute osseous injury identified. Degenerative changes of the spine seen. Soft tissues: Improving subcutaneous emphysema. XR/XR chest 1V portable [id number] IMPRESSION: Persistent bilateral airspace opacities, mildly improved.
[2021-05-29 07:58] LABS: Glucose Point of Care 171 mg/dL (70-110)
[2021-05-29] MEDS: zinc gluconate 50 mg Tablet PO (08:22)
[2021-05-29] MEDS: cyanocobalamin 1,000 mcg Tablet 1000 MCG PO (08:22)
[2021-05-29] MEDS: sennosides-docusate Tablet 1 TAB PO (08:22)
[2021-05-29] MEDS: ascorbic acid 500 mg Tablet 1000 MG PO ×2 (08:22→17:10)
[2021-05-29] MEDS: cholecalciferol (vitamin D3) 1,000 unit Tablet 2000 UNIT PO (08:23)
[2021-05-29] MEDS: polyethylene glycol 3350 Pkt 17 gm PO (08:23)
[2021-05-29] MEDS: folic acid 1 mg Tablet PO (08:23)
[2021-05-29] MEDS: dexamethasone 10 mg/mL INJ 6 MG IVP (08:23)
[2021-05-29] MEDS: enoxaparin 40 mg/0.4 mL Syringe SUBCUT (08:23)
[2021-05-29] MEDS: pantoprazole 40 mg SDV IVP ×2 (08:23→21:18)
[2021-05-29] MEDS: levothyroxine 100 mcg SDV 37.5 MCG IVP (08:26)
[2021-05-29] MEDS: levofloxacin-dextrose 5 % 750 MG/150 ML PREMIX 100 MG IV (14:06)
--- NOTE | 2021-05-29 14:38 | PC.RESP ---
RT Shift Note Frequent safety and respiratory rounds continue. Orders completed as indicated. Patient monitored pre and post treatments throughout shift. Patient [Did.] tolerate treatments appropriately. Condition [.DidNotChange]. Patient and/or denial management representative educated on respiratory treatment and medications. Patient and/or denial management representative unable to verbalize understanding Will continue to monitor patient progress.
[2021-05-29] MEDS: fluconazole premix 200 MG/100 ML PREMIX 100 MG IV (17:10)
--- NOTE | 2021-05-29 17:35 | P.PN_ITS ---
Subjective Subjective: Interval history: 55-year-old with past medical history significant for anxiety, depression, urinary incontinence with hx of uretheral stricture, Vance-en-Y gastric bypass, hypertension, hypothyroidism, neuropathy, peripheral vascular disease,Who presented to the hospitalOn 05/15 with respiratory distress. This was associated with dizziness, generalized weakness and recurrent falls.Laboratory workup on arrival showed a WBC of 3.1, hemoglobin of 8.2, hematocrit 28.0 and platelet count 141. Sodium 134, potassium 4.5, chloride 96, bicarb 30, BUN 15 and creatinine of 0.7 with a glucose of 168.Imaging studies included chest x-ray which showed bilateral pulmonary consol idation increased since prior x-ray on 05/12/2021.CT of chest was negative for pulmonary embolism and showed findings similar to chest x-ray.Bilateral venous duplex of lower extremity was performed which was negative for acute DVT. Patient was found to have COVID-19 infection.She was started on a 5 day course of Remdesivir which she completed. Additionally was started on dexamethasone and broad spectrum antibiotics including vancomycin, Primixin and Levaquin. Blood culture had not shown any growth. Sputum culture showed growth of yeast. MRSA culture was negative. Was trialed on Bipap however was requiring 100% Fio2. On 05/20 she was intubated and placed on mechanical ventilation. On 05/20 she was also treated with Actemra. Shortly after intubation patient was noted to have subcutaneous emphysema. She was able to complete Proning x 3. Taken off paralytics. On 05/22 chest xray had shown possible development of trace right sided pneumothorax in addition to pneumomediastinum. Apparently this was reviewed with cardiothorasic surgery. Ptx finding was questionable and ruled out. No chest tube was placed. Repeat X-ray on 05/23 and 06/23 did not show any evidence of ptx. Was noted to have ongoing extensive bilateral pulmonary infiltrates with extensive subQ emphysema around chest and small pneumomediastinum. Echocardiogram was also performed which showed preserved EF, no regional wall motion abnormality, normal diastolic function. 05/27 Fio2 weaned to 65%. ABG showed Ph 7.47, PCO2 of 40.6, Po2 of 56.5, HCO3 of 29.6 on 75% Fio2, TV 440, PEEP 12. I&O -> neg 6.715L balance since admission. Tmax 99.0 05/28 Patient was noted to have increasing Sq air. Reepeat chest xray in evening showed possible apical ptx. Repeat chest xray at 1 am did not show any evidence of ptx however ET tube appeared to be in Right main stem bronchus which was retracted. Patient was on 80% Fio2, responsive to commands. Nodding head no when asked if any pain. No fever overnight. 05/29 Overnight patients o2 requirements increased however this am fIO2 70%. Patient is awake on vent, calm, cooperative. Afebrile Medications: Reviewed: Yes Vitals/I&O/Wt Last Vital Signs Temp 99.0 F 05/29/21 20:00 Pulse 75 05/29/21 20:00 Resp 24 H 05/29/21 20:00 BP 116/79 05/29/21 20:00 Pulse Ox 93 05/29/21 20:00 05/29/21 05/29/21 05/30/21 14:59 22:59 06:59 Intake Total 300 / 300 936.151 / 1236.151 Output Total 1250 / 1250 Balance 300 / 300 -313.849 / -13.849 Weight last 48 hrs Weight 87.09 kg Weight 86.636 kg Physical Exam Narrative: EXAM NARRATIVE: General-arousable on vent. t, subQ emphysema HEENT-ET tube CVS -NSR Chest- Vented sound b/l Abdomen- non-distended : Lopez Extremities- No edema Urinary Catheter Management^: Lopez: Cath Placed During This Visit: yes Reason for Continuing Indwelling Catheter: Accurate Measurement of Urinary Output in Critically Ill Patients Urinary Catheter Date of Insertion: 05/15/21 Urinary Catheter Time of Insertion: 11:56 Data : 05/29/21 03:35 05/29/21 03:35 Micro: Microbiology 05/26/21 08:49 Gram Stain - Final Sputum - Endotracheal Tube Aspirate Sputum Culture - Final Yeast 05/25/21 10:02 Gram Stain - Final Sputum - Endotracheal Tube Aspirate Sputum Culture - Final Yeast A&P Assessment and plan (1) Acute respiratory distress syndrome (ARDS) due to COVID-19 virus: Status: Acute (2) Pneumothorax: Status: Acute (3) Methadone dependence: Status: Chronic (4) Hypothyroidism: Status: Chronic Qualifiers: Hypothyroidism type: acquired Qualified Code(s): E03.9 - Hypothyroidism, unspecified (5) Benign essential HTN: Status: Chronic Additional A&P Information #Acute Hypoxic respiratory failure #Covid 19 Pneumonia --Imaging reveals scattered nonspecific bilateral pulmonary groundglass lesions --Negative for DVT or PE --05/20 intubated mechanically ventilated requiring FiO2 80% - wean as tolerated --Previous concern for possible pneumothorax pulmonary and CT surgery consulted --No CT placed. Repeat imaging 05/28 did not show ptx. Noted to have SQ emphysema --ET tube in Right mainstem - retracted --Off nimbex - s/p proning x 3 - d/w staff --Propofol, fentanyl, Versed for sedation --Continue dexamethasone (D12) - Completed remdesivir plus Actemra given May 20, 2021 --D/C Vancomycin - MRSA screen negative --Continue cefepime and Levaquin --Lasix 20 mg IV x 1 on 05/27 - gentle dieresis PRN - Neg 9.8L since admission --Repeat abg/chest xray qother day --Repeat covid19 inflammatory labs qother day #Hypokalemia --K 3.0 - Replaced ->3.5 --Repeat BMP now #Elevated LFT --AST 127 --ALT 133 --Improving --LFT in am #Chronic Methadone Dependence --Takes 75 mg of methadone daily at home --Continue fentanyl per protocol --Continue gabapentin #Hypothyroidism --TSH 1.32, continue Levothyroxine. #History of Vance-en-y gastric bypass --Complicates history, continue supplements #FEN --Tube feeding. DVT: Lovenox Disposition: Status critical, will request eval for possible transfer to select LTAC Attestations Medical Necessity Statement*: Continue hospitalization for management of COVID-19 related respiratory failure on mechanical ventilation Time Spent in Patient Care: Greater than 35 minutes (>than 50% of time spent in counselling and/or direct pt care on unit) . Critical Care Time: Critical Care Time (min): 45 Procedures Arterial Line Size (Gauge): 20 Coding Level of Care Code Acute Seismographer for Chg Fwd Diagnoses Acute respiratory distress syndrome (ARDS) due to COVID-19 virus U07.1; J80 Pneumothorax J93.9 Methadone dependence F11.20 Hypothyroidism E03.9 Hypothyroidism type: acquired Benign essential HTN I10
--- NOTE | 2021-05-29 18:23 | PC.NURSE ---
Shift Note Frequent safety and comfort rounds continue. Orders and nursing care completed as indicated. Pt ventilator settings remain the same. Pt awake on sedation and shakes no head when asked if in any pain. Pt receiving tube feedings, see physician's order. Pt turn to comfort and dressing on bottom changed this shift. See physician's note for further detail of plan of care. Patient monitored for response to intervention and treatment. Education provided includes the antibiotics pt receiving, amount of oxygen given through vent, and oral care. Patient tolerated all very well and nodded with understanding. Will continue to monitor.
[2021-05-30] VITALS (46 sets, daily range): BP systolic 92–136; BP diastolic 60–88; PULSE 51–87; RESP 19–30; TEMP 36.5–37.3; O2SAT 87–97
[2021-05-30] MEDS: propofol 1,000 MG/100 ML INJ 24.49 MG IV (00:22)
[2021-05-30] MEDS: ipratropium-albuterol 3 mL Neb INHALATION ×6 (02:55→23:33)
[2021-05-30 04:25] LABS: Basophils % 0.3 %; Eosinophils # 0.1 10^3/uL (0.0-0.8); Hematocrit 30.2 % (37.0-47.0); Lymphocytes # 1.6 10^3/uL (0.8-4.8); Lymphocytes % 23.6 %; Mean Corpuscular HGB Conc 29.8 g/dL (30.0-36.0); Mean Corpuscular Hemoglobin 23.7 pg (28.0-34.0); Mean Corpuscular Volume 79.7 fl (81-99); Mean Platelet Volume 10.6 fL (7.4-10.4); Monocytes # 0.6 10^3/uL (0.2-0.9); Monocytes % 9.1 %; Neutrophils # 4.46 10^3/uL (1.8-7.7); Neutrophils % 64.4 %; Nucleated Red Blood Cells % 0 %; Platelet Count 187 10^3/cmm (130-400); Red Blood Count 3.79 10^6/uL (4.1-5.3); Red Cell Distribution Width 18.6 % (12.1-15.1); White Blood Count 6.9 10^3/uL (4.0-10.0)
[2021-05-30 04:53] LABS: ABG PCO2 42.3 mmHg (35-45); ABG PH Result 7.47 (7.35-7.45); Arterial Blood Gas Hematocrit 27.4 % (37-47); Base Excess ABG 6.6 mmol/L (-2.0-2.0); Blood Gas Allen Test Pos; Blood Gas Sample Site Radial, right; Blood Gas Sample Type Arterial; Blood Gas Tidal Volume 0.44; HCO3 ABG 30.9 mmol/L (22-26); Oxygen Device VENT; PO2 ABG 60.5 mmHg (80.0-100.0)
[2021-05-30 05:05] LABS: Procalcitonin 0.04 ng/mL (0-0.5)
[2021-05-30 05:19] LABS: Anion Gap 16.4 (5-19); Blood Urea Nitrogen 9 mg/dL (6-20); C Reactive Protein 0.4 mg/L (0.0-4.9); Calcium 8.5 mg/dL (8.5-10.5); Carbon Dioxide 25 mmol/L (22-29); Chloride 102 mmol/L (98-107); Ferritin 61 ng/mL (15-150); Glomerular Filtration Rate 366.1 mL/min (90-130); Glucose 86 mg/dL (65-115); Osmolality Calculated 288 mOsm/kg (285-295); Potassium 3.4 mmol/L (3.5-5.1); Sodium 140 mmol/L (136-145)
[2021-05-30] MEDS: cefepime 1,000 MG in sodium chloride 0.9% (plus) 50 ML 100 MG IV ×2 (05:45→17:04)
[2021-05-30] MEDS: propofol 1,000 MG/100 ML INJ 21.77 MG IV ×4 (05:53→20:15)
--- NOTE | 2021-05-30 06:26 | PC.NURSE ---
Shift Note Patient's vitals remain stable throughout shift. Repositioned and oral care done Q2 . Gtt titrated as needed. Frequent safety and comfort rounds continue. Orders and/or nursing care completed as indicated. Patient monitored for response to intervention and treatment(s). Will continue to monitor.
--- NOTE | 2021-05-30 06:31 | PC.SOCIAL ---
IM follow up not provided. Patient still currently on vent and discharge not expected within two days.
[2021-05-30] MEDS: zinc gluconate 50 mg Tablet PO (08:01)
[2021-05-30] MEDS: cyanocobalamin 1,000 mcg Tablet 1000 MCG PO (08:01)
[2021-05-30] MEDS: sennosides-docusate Tablet 1 TAB PO (08:01)
[2021-05-30] MEDS: folic acid 1 mg Tablet PO (08:01)
[2021-05-30] MEDS: cholecalciferol (vitamin D3) 1,000 unit Tablet 2000 UNIT PO (08:01)
[2021-05-30] MEDS: pantoprazole 40 mg SDV IVP ×2 (08:01→20:23)
[2021-05-30] MEDS: polyethylene glycol 3350 Pkt 17 gm PO (08:01)
[2021-05-30] MEDS: ascorbic acid 500 mg Tablet 1000 MG PO ×2 (08:01→17:04)
[2021-05-30] MEDS: dexamethasone 10 mg/mL INJ 6 MG IVP (08:02)
[2021-05-30] MEDS: enoxaparin 40 mg/0.4 mL Syringe SUBCUT ×2 (08:02→12:07)
[2021-05-30] MEDS: levothyroxine 100 mcg SDV 37.5 MCG IVP (08:02)
--- NOTE | 2021-05-30 08:21 | PC.CHAP ---
Pastoral Care Encounter/Spiritual Assessment Type of Contact [] Declined van driver visit [] Patient/Family/Request visit [] Outpatient visit [] Follow-up visit [] Physician referral [] Code/Alert [x] Routine visit [] Staff referral [] Actively dying [] Patient sleeping [] Family support [] [] Out of room [] Palliative care [] [] Receiving care in room [] Pre-surgical visit [] Trauma [] Long length of stay [x] ICU visit [] Other: covid vent Relational/Emotional Strength [] Patient feels connected with others/family/visitors/staff [] Distress [] Loneliness/isolation [] Abandonment Spirituality of Patient [] Person of Ekta [] Attends Anglican of their Ekta [] Believes in Prayer [] Reads Bible or Samaritan materials [] There are Spiritual issues to be addressed Paint Booth Operator Interventions [x] Prayer [] Active listening [] Non-anxious presence [] Spiritual/emotional support [] Crisis/trauma care [] Spiritual counseling [] Bereavement support [] Provided bereavement packet [] Provided Bible/devotional materials [] Provided toy/stuffed animal, coloring book to patient or family member [] Provided Communion [] Anointing/[place] [] Salvation [x] Completed spiritual assessment [] Other: Impact on Illness or Injury [] Angry [] Fearful [] Anxious [] Often cries [] Exhaustion [] Unable to work [] Unable to attend confucianist [] Unable to walk/stand [] Unable to read [] Unable to drive [] Unable to eat/drink [] Unable to sleep [] Unable to be with family [] Patient intubated [] Other: Summary Time spent with patient
--- NOTE | 2021-05-30 09:55 | XRR_ITS ---
PROCEDURE INFORMATION: Exam: XR Chest Exam date and time: 05/30/2021 9:55 AM Age: 55 years old Clinical indication: Other: Follow up; Additional info: Desat TECHNIQUE: Imaging protocol: XR of the chest. Views: 1 view. COMPARISON: CR (CHEST, ) 05/29/2021 5:11 AM FINDINGS: Tubes, catheters and devices: Endotracheal tube is in satisfactory position. Feeding tube is in satisfactory position. Right IJ approach central line is in satisfactory position, with distal tip in the SVC, approximately 2 cm above the SVC/RA junction. Right sided PICC is in satisfactory position, with distal tip in the SVC, approximately 4 cm above the SVC/RA junction. Lungs: Low lung volumes. Interval worsening of bilateral airspace opacities. No large pleural effusion or pneumothorax. Pleural spaces: See Lungs finding. Heart/Mediastinum: Stable cardiomediastinal silhouette. Bones/joints: No acute osseous injury identified. Soft tissues: A small amount of subcutaneous emphysema is again seen in the chest wall bilaterally. XR/XR chest 1V portable [id number] IMPRESSION: Interval worsening of bilateral airspace opacities.
--- NOTE | 2021-05-30 10:19 | CTR_ITS ---
PROCEDURE INFORMATION: Exam: CTA Chest With Contrast Exam date and time: 05/30/2021 10:19 AM Age: 55 years old Clinical indication: Dyspnea; Additional info: Covid, intubated, hypoxia TECHNIQUE: Imaging protocol: Computed tomographic angiography of the chest with contrast. 3D rendering (Not supervised by radiologist): MIP and/or 3D reconstructed images were created by the technologist. Radiation optimization: All CT scans at this facility use at least one of these dose optimization techniques: automated exposure control; mA and/or kV adjustment per patient size (includes targeted exams where dose is matched to clinical indication); or iterative reconstruction. Contrast material: OMNI 350; Contrast volume: 62 ml; Contrast route: INTRAVENOUS (IV); COMPARISON: CT angio chest PE protcl [id number] 05/15/2021 11:32 PM RADIATION DOSE METRICS: Total DLP (mGy-cm): 584.65 FINDINGS: Tubes, catheters and devices: Feeding tube is in satisfactory position. Endotracheal tube is in satisfactory position. Pulmonary arteries: There is filling defects within segmental and subsegmental pulmonary artery branches of the right lower lobe, consistent with acute pulmonary emboli. Aorta: Unremarkable. No aortic aneurysm. No aortic dissection. Lungs: There is extensive ground-glass opacities throughout both lungs, involving mainly the lower lobes. Pleural spaces: Trace right pleural effusion noted. Heart: Unremarkable. No cardiomegaly. No pericardial effusion. Lymph nodes: Unremarkable. No enlarged lymph nodes. Liver: The liver demonstrates slight nodular contour, suggestive of cirrhosis. No discrete mass lesion seen. Gallbladder and bile ducts: Gallbladder is absent. Spleen: Enlarged spleen measuring 17 cm in length. Stomach and bowel: The patient is status post Vance-en-Y gastric bypass. Bones/joints: Degenerative changes of the spine seen. Soft tissues: There is a small amount of subcutaneous emphysema in the anterior chest wall and neck. CT/CT angio chest PE protcl [id number] IMPRESSION: 1. Acute segmental and subsegmental pulmonary emboli in the right lower lobe. 2. Commonly reported imaging features of (COVID-19) pneumonia are present. Other processes such as influenza pneumonia and organizing pneumonia, as can be seen with drug toxicity and connective tissue disease, can cause a similar imaging pattern. 3. Trace right pleural effusion. Radiation Dose CTDIVOL = (mGy): DLP = 584.65 (mGy-cm)
--- NOTE | 2021-05-30 10:22 | PC.OT ---
PER RT, HOLD TODAY DUE TO DECREASE IN O2 SATS. WILL ATTEMPT AGAIN TOMORROW.
[2021-05-30] MEDS: FUROsemide 10 mg/mL SDV 4mL 40 MG IVP (10:33)
[2021-05-30] MEDS: potassium chloride oral liq 20 mEq/15 mL UDC 40 MEQ PO (10:33)
[2021-05-30] MEDS: dexmedeTOMIDine 0.9 % NaCL 400 MCG/100 ML PREMIX IV (10:33)
[2021-05-30] MEDS: iohexol 350 mg/mL 100 mL Btl IV (11:24)
[2021-05-30] MEDS: levofloxacin-dextrose 5 % 750 MG/150 ML PREMIX 100 MG IV (14:17)
--- NOTE | 2021-05-30 15:29 | PC.RESP ---
RT Shift Note Frequent safety and respiratory rounds continue. Orders completed as indicated. Patient monitored pre and post treatments throughout shift. Patient [Did.] tolerate treatments appropriately. Condition [.DidNotChange]. Patient and/or sales representative womens health educated on respiratory treatment and medications. Patient and/or sales representative womens health unable to verbalize understanding]. Will continue to monitor patient progress.
--- NOTE | 2021-05-30 16:39 | P.PN_ITS ---
Subjective Subjective: Interval history: Hospital course, labs appreciated. Examination patient is on sedation with propofol, fentanyl, Versed. Patient is awake, calm. On examination she is on 70% FiO2 saturating 86% so was increased to 200% during the day. Denies any nausea, vomiting, headache. Current ventilator settings tidal volume of 440, PEEP of 10, FiO2 of 100% Medications: Reviewed: Yes Vitals/I&O/Wt Last Vital Signs Temp 97.7 F 05/30/21 07:00 Pulse 53 L 05/30/21 15:28 Resp 21 H 05/30/21 15:28 BP 122/74 05/30/21 12:00 Pulse Ox 96 05/30/21 15:28 05/30/21 05/30/21 05/30/21 06:59 14:59 22:59 Intake Total 888.375 / 2124.526 603.845 / 603.845 154.717 / 758.562 Output Total 1100 / 2350 1750 / 1750 Balance -211.625 / -225.474 -1146.155 / -1146.155 154.717 / -991.438 Weight last 48 hrs Weight 86.636 kg Weight 87.09 kg Physical Exam Urinary Catheter Management^: Lopez: Cath Placed During This Visit: yes Reason for Continuing Indwelling Catheter: Accurate Measurement of Urinary Output in Critically Ill Patients Urinary Catheter Date of Insertion: 05/15/21 Urinary Catheter Time of Insertion: 11:56 Data : 05/30/21 03:37 05/30/21 03:37 Micro: Microbiology 05/30/21 12:30 MRSA Culture - Final Nose 05/30/21 12:30 Legionella Urinary Antigen - Final Urine Catheterized 05/30/21 12:30 Bacterial Antigens - Final Urine Kidney 05/26/21 08:49 Gram Stain - Final Sputum - Endotracheal Tube Aspirate Sputum Culture - Final Yeast 05/25/21 10:02 Gram Stain - Final Sputum - Endotracheal Tube Aspirate Sputum Culture - Final Yeast A&P Assessment and plan (1) Acute respiratory distress syndrome (ARDS) due to COVID-19 virus: Status: Acute (2) Fungal pneumonia: Status: Acute (3) Pulmonary embolism: Status: Acute (4) Pneumothorax: Status: Acute (5) Methadone dependence: Status: Chronic (6) Hypothyroidism: Status: Chronic Qualifiers: Hypothyroidism type: acquired Qualified Code(s): E03.9 - Hypothyroidism, unspecified (7) Benign essential HTN: Status: Chronic Additional A&P Information #Acute Hypoxic respiratory failure #Covid 19 Pneumonia: Severe disease. Ventilator dependent. Finished course of treatment with remdesivir. Post Actemra on May 20. Prolonged dexamethasone course. Decreased to 3 mg IV daily. Monitor inflammatory markers every 48 hours including ESR, CRP, D-dimer. Sedation with propofol and fentanyl. We will try to switch from Versed to Precedex. Given ARDS we will try to keep patient as negative as possible. IV 40 mg stat. Strict input output charting, daily weights. Net 9 L negative since admission. Echocardiogram done earlier in the admission shows an EF of 60%, RVSP of 23, trace MR. MRSA negative. For now continue with cefepime to finish a 10-day course. Will stop levofloxacin as patient has been on levofloxacin for over 10 days now. Sputum culture growing yeast. Patient has been on fluconazole but requiring higher oxygen supplementation. Awaiting speciation identification. For now switch over to caspofungin. Net day 3 of treatment. As patient is requiring high oxygen supplementation will repeat CTA. If needed we will switch over to full dose Lovenox. Isolation precautions for 21 days. Till June 02, 2021. #Elevated LFT --AST 127 --ALT 133 --Improving --LFT in am #Chronic Methadone Dependence --Takes 75 mg of methadone daily at home. Hold for now. --Continue fentanyl per protocol #Hypothyroidism --TSH 1.32, continue Levothyroxine. #History of Vance-en-y gastric bypass --Complicates history, continue supplements Tube feedings. Full dose Lovenox will help with DVT prophylaxis. Protonix for PUD prophylaxis. Full code. Multiple goals of care discussion done with patient's daughter over the phone and in person. We discussed that patient in past had wished not to live on life support. We also discussed unfortunately patient is requiring high oxygen supplementation and is currently ventilator dependent for last 15 days. We also discussed that her oxygen requirements are going up now with her requiring 100% FiO2 today. Also discussed fungal pneumonia and new diagnosis of pulmonary embolism. All the questions were answered. For now continue the current treatment for next 3 to 4 days. If there is no improvement at that point family would want patient to be have terminal extubation and comfort measures only. Attestations Medical Necessity Statement*: Requires further hospitalization for ARDS secondary to COVID-19 pneumonia, pulmonary embolism, fungal pneumonia as patient remains ventilator dependent. Critical Care Time: The high probability of a clinically significant, sudden or life threatening deterioration of the patient's [pulmonary, ID, neurological, multiple goals of care discussion] system(s) required my full and direct attention, intervention and personal management. The critical care time is as shown. This time is in addition to time spent performing any reported procedures but includes the following: [x] Data and vital sign review and interpretation [x] Patient assessment, examination and intervention [x] Documentation [x] Medication orders and management Critical Care Time (min): 70 Procedures Arterial Line Size (Gauge): 20 Coding Level of Care Code Acute Environmental Science Professor for g Fwd Diagnoses Acute respiratory distress syndrome (ARDS) due to COVID-19 virus U07.1; J80 Fungal pneumonia B49; J17 Pulmonary embolism I26.99 Pneumothorax J93.9 Methadone dependence F11.20 Hypothyroidism E03.9 Hypothyroidism type: acquired Benign essential HTN I10
[2021-05-30] MEDS: FUROsemide 10 mg/mL SDV 2mL 20 MG IVP (17:04)
--- NOTE | 2021-05-30 18:31 | PC.NURSE ---
Shift Note Frequent safety and comfort rounds continue. Orders and nursing care completed as indicated. Patient had episode this am where O2 drop to high 70s and remained there for about 45mins. Orders placed for new medications, see mar. Orders for stat chest xray and CT, see reports. After CT patient O2 remain in the mid 90s. Daughter came to visit for 20min and spoke with the physician regarding plan of care. Patient monitored for response to intervention and treatments. Will continue to monitor.
[2021-05-30 18:56] LABS: NT Pro B Type Natriuretic Pept 83 pg/mL (0-125)
[2021-05-30 19:40] LABS: Lactate Dehydrogenase 310 U/L (135-214)
[2021-05-30] MEDS: budesonide 0.5 mg/2 mL Neb INHALATION (19:55)
[2021-05-30] MEDS: enoxaparin 80 mg/0.8 mL Syringe SUBCUT (20:23)
[2021-05-30] MEDS: dexmedeTOMIDine 0.9 % NaCL 400 MCG/100 ML PREMIX 6.5 MCG IV (21:15)
[2021-05-31] VITALS (55 sets, daily range): BP systolic 91–128; BP diastolic 58–93; PULSE 52–94; RESP 18–27; TEMP 36.7–37.1; O2SAT 84–99
[2021-05-31] MEDS: propofol 1,000 MG/100 ML INJ 27.22 MG IV ×7 (00:38→22:17)
[2021-05-31] MEDS: ipratropium-albuterol 3 mL Neb INHALATION ×6 (03:30→23:33)
[2021-05-31 04:58] LABS: ABG PH Result 7.47 (7.35-7.45); Alveolar-Arterial Oxygen Gradi 55.4 mmHg (5-10); Base Excess ABG 7.1 mmol/L (-2.0-2.0); Blood Gas Allen Test Pos; Blood Gas Operator Identificat JB; Blood Gas Sample Site Radial, right; Blood Gas Sample Type Arterial; Blood Gas Tidal Volume 0.44; Carboxyhemoglobin 1.3 %THgb (0.4-20.1); HCO3 ABG 31.5 mmol/L (22-26); HGB O2 Sat 87.5 % (95-100); Ionized Calcium Level - ABG 1.2 mmol/L (1.1-1.4); Methemoglobin 0.9 % (0.4-1.5); Oxygen Device VENT; Oxygen Saturation ABG 89.5; PO2 ABG 54.8 mmHg (80.0-100.0); Potassium Level - ABG 3.4 mmol/L (3.5-5.0); Total Hemoglobin 12.4 g/dL (12-16)
--- NOTE | 2021-05-31 05:31 | PC.NURSE ---
Shift Note Frequent safety and comfort rounds continue. Orders and/or nursing care completed as indicated. Patient monitored for response to intervention and treatment. Education provided includes precedex. Patient needs reinforcement. Will continue to monitor. Pt had episodes of tachypnea/coughing which caused her oxygen to decrease. Patient recovered quickly after repositioning/suctioning when needed.
[2021-05-31] MEDS: cefepime 1,000 MG in sodium chloride 0.9% (plus) 50 ML 100 MG IV ×2 (05:49→17:24)
[2021-05-31 05:54] LABS: Basophils % 0.3 %; Eosinophils # 0.1 10^3/uL (0.0-0.8); Eosinophils % 1.6 %; Hematocrit 31.8 % (37.0-47.0); Hemoglobin 9.9 g/dL (11.5-15.3); Lymphocytes # 1.8 10^3/uL (0.8-4.8); Lymphocytes % 23.5 %; Mean Corpuscular HGB Conc 31.1 g/dL (30.0-36.0); Mean Corpuscular Hemoglobin 24.4 pg (28.0-34.0); Mean Corpuscular Volume 78.5 fl (81-99); Mean Platelet Volume 10.7 fL (7.4-10.4); Monocytes # 0.8 10^3/uL (0.2-0.9); Monocytes % 10.1 %; Neutrophils % 63.7 %; Nucleated Red Blood Cells % 0 %; Platelet Count 190 10^3/cmm (130-400); Red Blood Count 4.05 10^6/uL (4.1-5.3); Red Cell Distribution Width 18.8 % (12.1-15.1); White Blood Count 7.5 10^3/uL (4.0-10.0)
[2021-05-31 06:06] LABS: Albumin Level 3.5 g/dL (3.5-5.2); Alkaline Phosphatase 98 IU/L (35-105); Blood Urea Nitrogen 12 mg/dL (6-20); Calcium 9.1 mg/dL (8.5-10.5); Carbon Dioxide 30 mmol/L (22-29); Chloride 97 mmol/L (98-107); Globulin 2.9 g/dL (1.3-4.6); Glomerular Filtration Rate 229.3 mL/min (90-130); Glucose 94 mg/dL (65-115); Osmolality Calculated 284 mOsm/kg (285-295); Sodium 137 mmol/L (136-145); Total Bilirubin 0.3 mg/dL (0.15-1.2); Total Protein 6.4 g/dL (6.6-8.7)
[2021-05-31 06:09] LABS: Anion Gap 13.5 (5-19); Potassium 3.5 mmol/L (3.5-5.1)
[2021-05-31 06:17] LABS: Procalcitonin 0.06 ng/mL (0-0.5)
[2021-05-31 06:28] LABS: Alanine Aminotransferase < 5 U/L (0-33); Aspartate Amino Transferase 5 U/L (0-32)
[2021-05-31 06:29] LABS: C Reactive Protein 0.3 mg/L (0.0-4.9)
[2021-05-31 06:33] LABS: D Dimer 1.53 ug/mIFEU (0-0.59)
[2021-05-31 06:43] LABS: Erythrocyte Sedimentation Rate 18 mm/hr (0-15)
--- NOTE | 2021-05-31 07:00 | XRR_ITS ---
PROCEDURE INFORMATION: Exam: XR Chest Exam date and time: 05/31/2021 7:00 AM Age: 55 years old Clinical indication: Dyspnea; Additional info: Respiratory failure TECHNIQUE: Imaging protocol: XR of the chest. Views: 1 view. COMPARISON: CR XR chest 1V portable [id number] 05/30/2021 9:54 AM FINDINGS: Tubes, catheters and devices: Support tubes and lines are in good position. Lungs: Stable bilateral pulmonary infiltrates. Pleural spaces: Unremarkable. No pleural effusion. No pneumothorax. Heart/Mediastinum: Unremarkable. No cardiomegaly. Bones/joints: Unremarkable. XR/XR chest 1V portable [id number] IMPRESSION: 1. Support tubes and lines are in good position. 2. Stable bilateral pulmonary infiltrates.
[2021-05-31] MEDS: dexamethasone 4 mg/mL INJ 3 MG IVP (08:11)
[2021-05-31] MEDS: pantoprazole 40 mg SDV IVP ×2 (08:11→20:32)
[2021-05-31] MEDS: polyethylene glycol 3350 Pkt 17 gm PO (08:11)
[2021-05-31] MEDS: cholecalciferol (vitamin D3) 1,000 unit Tablet 2000 UNIT PO (08:12)
[2021-05-31] MEDS: zinc gluconate 50 mg Tablet PO (08:12)
[2021-05-31] MEDS: sennosides-docusate Tablet 1 TAB PO (08:12)
[2021-05-31] MEDS: ascorbic acid 500 mg Tablet 1000 MG PO ×2 (08:12→17:24)
[2021-05-31] MEDS: cyanocobalamin 1,000 mcg Tablet 1000 MCG PO (08:12)
[2021-05-31] MEDS: folic acid 1 mg Tablet PO (08:13)
[2021-05-31] MEDS: levothyroxine 100 mcg SDV 37.5 MCG IVP (08:13)
[2021-05-31] MEDS: enoxaparin 80 mg/0.8 mL Syringe SUBCUT ×2 (08:13→20:31)
[2021-05-31] MEDS: budesonide 0.5 mg/2 mL Neb INHALATION ×2 (08:45→19:41)
[2021-05-31] MEDS: FUROsemide 10 mg/mL SDV 4mL 40 MG IVP (08:57)
[2021-05-31] MEDS: potassium chloride oral liq 20 mEq/15 mL UDC 40 MEQ PO (08:57)
[2021-05-31] MEDS: dexmedeTOMIDine 0.9 % NaCL 400 MCG/100 ML PREMIX 6.5 MCG IV (14:03)
--- NOTE | 2021-05-31 14:51 | P.PN_ITS ---
Subjective Subjective: Interval history: Patient seen multiple times into the day today. No acute events overnight. On examination patient resting comfortably in bed, awake and alert though sedated. Has remained hemodynamically stable and afebrile. Currently on ventilator setting of FiO2 75%, tidal volume 440 with a PEEP of 10 saturating 94 to 95%. Documented urine output in last 24 hours 3.2 L. Medications: Reviewed: Yes Vitals/I&O/Wt Last Vital Signs Temp 98.8 F 05/31/21 08:00 Pulse 77 05/31/21 14:00 Resp 23 H 05/31/21 13:11 BP 106/73 05/31/21 12:00 Pulse Ox 95 05/31/21 13:11 05/30/21 05/31/21 05/31/21 22:59 06:59 14:59 Intake Total 848.592 / 1452.437 408.745 / 1861.182 543.455 / 543.455 Output Total 1100 / 2850 400 / 3250 Balance -251.408 / -1397.563 8.745 / -1388.818 543.455 / 543.455 Weight last 48 hrs Weight 84.096 kg Weight 86.636 kg Physical Exam Narrative: EXAM NARRATIVE: General: No acute distress, AO x3, mildly sedated, GCS: E3 M4 VT HEENT: PERRLA, pupils bilaterally equal and reactive Chest: Bilateral coarse crackles present all over the lung olmos, left more than right, equal good air entry bilaterally CVS: S1-S2 regular, no murmurs, no tachycardia, no gallops, no rubs Abdomen: Soft, nontender, no organomegaly, bowel sounds present Neuro: No focal deficits, no facial deformity, AO x3, power 3/5 in all limbs Urinary Catheter Management^: Lopez: Cath Placed During This Visit: yes Reason for Continuing Indwelling Catheter: Accurate Measurement of Urinary Output in Critically Ill Patients Urinary Catheter Date of Insertion: 05/15/21 Urinary Catheter Time of Insertion: 11:56 Data : 05/31/21 05:00 05/31/21 05:00 Micro: Microbiology 05/30/21 12:30 MRSA Culture - Final Nose 05/30/21 12:30 Legionella Urinary Antigen - Final Urine Catheterized 05/30/21 12:30 Bacterial Antigens - Final Urine Kidney A&P Assessment and plan (1) Acute respiratory distress syndrome (ARDS) due to COVID-19 virus: Status: Acute (2) Fungal pneumonia: Status: Acute (3) Pulmonary embolism: Status: Acute (4) Pneumothorax: Status: Acute (5) Methadone dependence: Status: Chronic (6) Hypothyroidism: Status: Chronic Qualifiers: Hypothyroidism type: acquired Qualified Code(s): E03.9 - Hypothyro idism, unspecified (7) Benign essential HTN: Status: Chronic Additional A&P Information #Acute Hypoxic respiratory failure #Covid 19 Pneumonia: Severe disease. Ventilator dependent. Finished course of treatment with remdesivir. Post Actemra on May 20. Prolonged dexamethasone course. Decreased to 3 mg IV daily. Monitor inflammatory markers every 48 hours including ESR, CRP, D-dimer. Sedation with propofol, fentanyl and Precedex. Given ARDS we will try to keep patient as negative as possible.. IV Lasix 40 mg today. Strict input output charting, daily weights. Net 9 L negative since admission. Echocardiogram done earlier in the admission shows an EF of 60%, RVSP of 23, trace MR. MRSA negative. For now continue with cefepime to finish a 10-day course. Patient has already finished a course of antibiotics with vancomycin and Levaquin. Sputum culture growing yeast. Continue with caspofungin. Net day 4 of treatment. CTA concerning for pulmonary embolism. Started on full dose Lovenox. Will monitor for anemia or GI bleed. Isolation precautions for 21 days. Till June 02, 2021. Elevated LFT: Resolved. Chronic Methadone Dependence --Takes 75 mg of methadone daily at home. Hold for now. --Continue fentanyl per protocol Hypothyroidism --TSH 1.32, continue Levothyroxine. History of Vance-en-y gastric bypass --Complicates history, continue supplements Tube feedings. Full dose Lovenox will help with DVT prophylaxis. Protonix for PUD prophylaxis. Full code. Multiple goals of care discussion done with patient's daughter over the phone and in person and with patient at bedside. We discussed that patient in past had wished not to live on life support. We also discussed unfortunately patient is requiring high oxygen supplementation and is currently ventilator dependent for last 15 days. Also discussed fungal pneumonia and new diagnosis of pulmonary embolism. All the questions were answered. For now continue the current treatment for next 3 to 4 days. We discussed that risk for there are 2 option. One option would be to go ahead and do tracheostomy which would mean that she would be on a ventilator for couple of months while we give her lungs some chance to heal and see if she is able to come off the ventilator and eventually to a nasal cannula versus possible term inal extubation in few days which goes in hand with her goals of care which were to not live on life support. Patient has asked for some time to think about the same. Attestations Medical Necessity Statement*: Requires further hospitalization for management of acute hypoxia secondary COVID-19 pneumonia, ARDS, ventilator dependent, fungal pneumonia, pulmonary embolism. Critical Care Time: The high probability of a clinically significant, sudden or life threatening deterioration of the patient's [respiratory, cardiac] system(s) required my full and direct attention, intervention and personal management. The critical care time is as shown. This time is in addition to time spent performing any reported procedures but includes the following: [x] Data and vital sign review and interpretation [x] Patient assessment, examination and intervention [x] Documentation [x] Medication orders and management Critical Care Time (min): 80 Procedures Arterial Line Size (Gauge): 20 Coding Level of Care Code Acute Tobacco Scrap Sifter for g Fwd Diagnoses Acute respiratory distress syndrome (ARDS) due to COVID-19 virus U07.1; J80 Fungal pneumonia B49; J17 Pulmonary embolism I26.99 Pneumothorax J93.9 Methadone dependence F11.20 Hypothyroidism E03.9 Hypothyroidism type: acquired Benign essential HTN I10
[2021-05-31] MEDS: scopolamine 1.5 Patch 1 PATCH TRANSDERMA (15:12)
--- NOTE | 2021-05-31 15:52 | PC.NUTR ---
Addendum entered by Frank Shin 05/31/21 16:09: In addition, continue to recommend checking triglycerides when possible. Original Note: Tube feeding recommendation: Pulmocare at 50 ml/hr providing 1800 kcal, propofol @ 27.22 ml/hr providing 719 kcal/day. Total kcal provision exceeding estimated needs. Recommend temporary decrease in rate to 35 ml/hr with addition of Beneprotein, 1 scoop TID, and same H2O flushes (100 ml q 4 hrs). TF with Beneprotein and flushes would provide 1335 kcal, 70 g protein, and 1260 ml H2O. For the Beneprotein, can be included in 3 of the 6 daily 100 ml water flushes, mixing 1 scoop (1.5 tbsp) with 60 ml water, followed by 40 ml flush. (total of 100 ml as previously ordered). See full RD assessments for further details.
--- NOTE | 2021-05-31 18:35 | PC.NURSE ---
Shift Note Frequent safety and comfort rounds continue. Orders and nursing care completed as indicated. Pt received 40mg of Lasix, see urinary output. Pt FiO2 is 55% currently. Pt receiving tube feedings 50ml/hr with 100ml flushed every 4hours. Pt received oral care and frequently turning every 2 hours with help of other ICU nursing staff and RT. Patient monitored for response to intervention and treatments. Family updated on patient status, verbalized understanding. Will continue to monitor.
[2021-06-01] VITALS (54 sets, daily range): BP systolic 85–135; BP diastolic 52–102; PULSE 54–109; RESP 18–36; TEMP 36.2–37.1; O2SAT 81–99
[2021-06-01] MEDS: dexmedeTOMIDine 0.9 % NaCL 400 MCG/100 ML PREMIX 8.66 MCG IV (01:15)
[2021-06-01] MEDS: propofol 1,000 MG/100 ML INJ 27.22 MG IV ×3 (01:31→09:01)
[2021-06-01] MEDS: ipratropium-albuterol 3 mL Neb INHALATION ×6 (02:59→23:38)
[2021-06-01] MEDS: cefepime 1,000 MG in sodium chloride 0.9% (plus) 50 ML 100 MG IV ×2 (04:21→17:31)
[2021-06-01 04:49] LABS: ABG PCO2 44.1 mmHg (35-45); ABG PH Result 7.45 (7.35-7.45); Alveolar-Arterial Oxygen Gradi 40.9 mmHg (5-10); Arterial Blood Gas Hematocrit 31.9 % (37-47); Base Excess ABG 5.8 mmol/L (-2.0-2.0); Blood Gas Allen Test Pos; Blood Gas Sample Site Radial, right; Blood Gas Sample Type Arterial; Carboxyhemoglobin 1.6 %THgb (0.4-20.1); HCO3 ABG 30.5 mmol/L (22-26); HGB O2 Sat 86.8 % (95-100); Ionized Calcium Level - ABG 1.2 mmol/L (1.1-1.4); Methemoglobin 1.7 % (0.4-1.5); Oxygen Device VENT; Oxygen Saturation ABG 89.8; PO2 ABG 57.3 mmHg (80.0-100.0); Potassium Level - ABG 3.7 mmol/L (3.5-5.0); Total Hemoglobin 10.4 g/dL (12-16)
[2021-06-01 05:21] LABS: Basophils % 0.5 %; Eosinophils # 0.3 10^3/uL (0.0-0.8); Eosinophils % 4.8 %; Hematocrit 30.7 % (37.0-47.0); Lymphocytes % 32.6 %; Mean Corpuscular HGB Conc 32.6 g/dL (30.0-36.0); Mean Corpuscular Hemoglobin 25.9 pg (28.0-34.0); Mean Corpuscular Volume 79.5 fl (81-99); Mean Platelet Volume 10.6 fL (7.4-10.4); Monocytes # 0.6 10^3/uL (0.2-0.9); Neutrophils # 3.15 10^3/uL (1.8-7.7); Neutrophils % 51.6 %; Nucleated Red Blood Cells % 0 %; Platelet Count 147 10^3/cmm (130-400); Red Blood Count 3.86 10^6/uL (4.1-5.3); White Blood Count 6.1 10^3/uL (4.0-10.0)
[2021-06-01 05:28] LABS: Albumin Level 3.2 g/dL (3.5-5.2); Alkaline Phosphatase 95 IU/L (35-105); Blood Urea Nitrogen 12 mg/dL (6-20); Calcium 8.5 mg/dL (8.5-10.5); Carbon Dioxide 28 mmol/L (22-29); Chloride 99 mmol/L (98-107); Globulin 2.7 g/dL (1.3-4.6); Glomerular Filtration Rate 366.1 mL/min (90-130); Glucose 118 mg/dL (65-115); Osmolality Calculated 285 mOsm/kg (285-295); Sodium 137 mmol/L (136-145); Total Bilirubin 0.2 mg/dL (0.15-1.2); Total Protein 5.9 g/dL (6.6-8.7)
[2021-06-01 05:31] LABS: Anion Gap 13.8 (5-19); Potassium 3.8 mmol/L (3.5-5.1)
--- NOTE | 2021-06-01 05:37 | PC.NURSE ---
Shift Note Pt repositioned and oral cares done every 2 hours. Pt had episodes of decreased oxygen saturation into the high 70s after turning. Bath was given 06/01. Frequent safety and comfort rounds continue. Gtt titrated as needed. Patient monitored for response to intervention and treatment. Educated the patient on the importance of decreasing anxiety levels with turns to decrease the risk of low oxygen levels. Will continue to monitor.
[2021-06-01 05:54] LABS: Alanine Aminotransferase < 5 U/L (0-33); Aspartate Amino Transferase 5 U/L (0-32)
[2021-06-01] MEDS: budesonide 0.5 mg/2 mL Neb INHALATION ×2 (08:06→21:03)
[2021-06-01] MEDS: polyethylene glycol 3350 Pkt 17 gm PO (08:58)
[2021-06-01] MEDS: ascorbic acid 500 mg Tablet 1000 MG PO (08:59)
[2021-06-01] MEDS: dexamethasone 4 mg/mL INJ 3 MG IVP (08:59)
[2021-06-01] MEDS: zinc gluconate 50 mg Tablet PO (09:00)
[2021-06-01] MEDS: folic acid 1 mg Tablet PO (09:00)
[2021-06-01] MEDS: sennosides-docusate Tablet 1 TAB PO (09:00)
[2021-06-01] MEDS: levothyroxine 100 mcg SDV 37.5 MCG IVP (09:00)
[2021-06-01] MEDS: cyanocobalamin 1,000 mcg Tablet 1000 MCG PO (09:00)
[2021-06-01] MEDS: pantoprazole 40 mg SDV IVP ×2 (09:01→20:40)
[2021-06-01] MEDS: enoxaparin 80 mg/0.8 mL Syringe SUBCUT ×2 (09:01→20:40)
--- NOTE | 2021-06-01 09:05 | PM.PN ---
Subjective Subjective: Interval history: No acute events overnight. Patient hemodynamically stable and afebrile. Has had occasional episodes of bradycardia. Overnight had few episodes of coughing bouts. Currently on 60% FiO2 saturating 94%. Weaned down to 50% on examination but had to be done back to 60% as was desaturating up to 75%. Denies any nausea, vomiting, headache, pain. Agreeable for possible tracheostomy tomorrow. Somehow intake output charting not appropriate today. Seems she is 4 L positive though it is charted that she has had around 1800 cc of tube feeding since last night along with 1800 cc of fluid pushes. Medications: Reviewed: Yes Vitals/I&O/Wt Last Vital Signs Temp 98.5 F 06/01/21 04:00 Pulse 56 L 06/01/21 08:17 Resp 22 H 06/01/21 08:17 BP 96/64 06/01/21 07:00 Pulse Ox 94 06/01/21 08:17 05/31/21 06/01/21 06/01/21 22:59 06:59 14:59 Intake Total 1150 / 1254.755 9900.575 / 6699.030 100 / 100 Output Total 1750 / 1750 900 / 2650 Balance -600 / -56.545 4105.575 / 4049.030 100 / 100 Weight last 48 hrs Weight 84.776 kg Weight 84.096 kg Physical Exam Narrative: EXAM NARRATIVE: General: No acute distress, AO x3, mildly sedated, GCS: E3 M4 VT HEENT: PERRLA, pupils bilaterally equal and reactive Chest: Bilateral coarse crackles present all over the lung olmos, left more than right, equal good air entry bilaterally CVS: S1-S2 regular, no murmurs, no tachycardia, no gallops, no rubs Abdomen: Soft, nontender, no organomegaly, bowel sounds present Neuro: No focal deficits, no facial deformity, AO x3, power 3/5 in all limbs Urinary Catheter Management^: Lopez: Cath Placed During This Visit: yes Reason for Continuing Indwelling Catheter: Accurate Measurement of Urinary Output in Critically Ill Patients Urinary Catheter Date of Insertion: 05/15/21 Urinary Catheter Time of Insertion: 11:56 Data : 06/01/21 04:30 06/01/21 04:30 A&P Assessment and plan (1) Acute respiratory distress syndrome (ARDS) due to COVID-19 virus: Status: Acute (2) Fungal pneumonia: Status: Acute (3) Pulmonary embolism: Status: Acute (4) Pneumothorax: Status: Acute (5) Methadone dependence: Status: Chronic (6) Hypothyroidism: Status: Chronic Qualifiers: Hypothyroidism type: acquired Qualified Code(s): E03.9 - Hypothyroidism, unspecified (7) Benign essential HTN: Status: Chronic Additional A&P Information #ARDS secondary to COVID-19 pneumonia, superadded fungal pneumonia and pulmonary embolism: #Covid 19 Pneumonia: Severe disease. Ventilator dependent. Finished course of treatment with remdesivir. Post Actemra on May 20. Prolonged dexamethasone course. Decreased to 3 mg IV daily. Monitor inflammatory markers every 48 hours including ESR, CRP, D-dimer. Sedation with propofol, fentanyl and Precedex. Given ARDS we will try to keep patient as negative as possible.. IV Lasix 40 mg today. Strict input output charting, daily weights. Net 9 L negative since admission. Echocardiogram done earlier in the admission shows an EF of 60%, RVSP of 23, trace MR. MRSA negative. For now continue with cefepime to finish a 10-day course. Patient has already finished a course of antibiotics with vancomycin and Levaquin. Sputum culture growing yeast. Continue with caspofungin. Net day 5 of treatment. Will finish a 10-day course. CTA concerning for pulmonary embolism. Started on full dose Lovenox. Will monitor for anemia or GI bleed. Hold Lovenox tomorrow morning for possible tracheostomy. Hold tube feeds tomorrow morning for possible procedure. Isolation precautions for 21 days. Till June 02, 2021. Elevated LFT: Resolved. Chronic Methadone Dependence --Takes 75 mg of methadone daily at home. Hold for now. --Continue fentanyl per protocol Hypothyroidism --TSH 1.32, continue Levothyroxine. History of Vance-en-y gastric bypass --Complicates history, continue supplements Tube feedings decreased to 35 cc/h. Full dose Lovenox will help with DVT prophylaxis. Protonix for PUD prophylaxis. Bowel regimen Full code. Multiple goals of care discussion done with patient's daughter over the phone and in person and with patient at bedside. We discussed that patient in past had wished not to live on life support. We also discussed unfortunately patient is requiring high oxygen supplementation and is currently ventilator dependent for last 15 days. Also discussed fungal pneumonia and new diagnosis of pulmonary embolism. All the questions were answered. For now continue the current treatment for next 3 to 4 days. We discussed that risk for there are 2 option. One option would be to go ahead and do tracheostomy which would mean that she would be on a ventilator for couple of months while we give her lungs some chance to heal and see if she is able to come off the ventilator and eventually to a nasal cannula versus possible terminal extubation in few days which goes in hand with her goals of care which were to not live on life support. Patient is agreeable to take. Most likely plan tomorrow. Attestations Medical Necessity Statement*: Requires further hospitalization for management of ARDS secondary COVID-19 pneumonia, fungal pneumonia, pulmonary embolism in setting of patient being ventilator dependent. Critical Care Time: The high probability of a clinically significant, sudden or life threatening deterioration of the patient's [pulmonary, cardiac, neurological] system(s) required my full and direct attention, intervention and personal management. The critical care time is as shown. This time is in addition to time spent performing any reported procedures but includes the following: [x] Data and vital sign review and interpretation [x] Patient assessment, examination and intervention [x] Documentation [x] Medication orders and management Critical Care Time (min): 80 Procedures Arterial Line Size (Gauge): 20 Coding Level of Care Code Acute Crop Or Livestock Tenant Farmer for g Fwd Diagnoses Acute respiratory distress syndrome (ARDS) due to COVID-19 virus U07.1; J80 Fungal pneumonia B49; J17 Pulmonary embolism I26.99 Pneumothorax J93.9 Methadone dependence F11.20 Hypothyroidism E03.9 Hypothyroidism type: acquired Benign essential HTN I10
--- NOTE | 2021-06-01 09:28 | PC.CHAP ---
Pastoral Care Encounter/Spiritual Assessment Type of Contact [] Declined environmental maintenance worker visit [] Patient/Family/Request visit [] Outpatient visit [] Follow-up visit [] Physician referral [] Code/Alert [x Routine visit [] Staff referral [] Actively dying [] Patient sleeping [] Family support [] [] Out of room [] Palliative care [] [] Receiving care in room [] Pre-surgical visit [] Trauma [] Long length of stay [x] ICU visit [] Other: Relational/Emotional Strength [] Patient feels connected with others/family/visitors/staff [] Distress [] Loneliness/isolation [] Abandonment Spirituality of Patient [] Person of Ekta [] Attends Scientologist of their Ekta [] Believes in Prayer [] Reads Bible or Restorationism materials [] There are Spiritual issues to be addressed Picker Box Operator Interventions [x] Prayer [] Active listening [] Non-anxious presence [] Spiritual/emotional support [] Crisis/trauma care [] Spiritual counseling [] Bereavement support [] Provided bereavement packet [] Provided Bible/devotional materials [] Provided toy/stuffed animal, coloring book to patient or family member [] Provided Communion [] Anointing/[place] [] Salvation [x] Completed spiritual assessment [] Other: Impact on Illness or Injury [] Angry [] Fearful [] Anxious [] Often cries [] Exhaustion [] Unable to work [] Unable to attend yazidism [] Unable to walk/stand [] Unable to read [] Unable to drive [] Unable to eat/drink [] Unable to sleep [] Unable to be with family [] Patient intubated [] Other: Summary Time spent with patient
--- NOTE | 2021-06-01 09:50 | PC.NURSE ---
This AM patient has been resting in bed watching TV. She is able to communicate all needs and follows commands. Tube feeding shut off for an hour and continued at 35ml an hour per orders. Precedex titrated down.
--- NOTE | 2021-06-01 10:10 | PC.OT ---
OT NOTE: OT TREATMENT ATTEMPTED. PATIENT DECLINES ALL TREATMENT OFFERED. APPEARS DOWN/DEPRESSED. NURSING INFORMED. WILL ATTEMPT AGAIN AT A LATER TIME. PER NURSING TO RECEIVE SURGERY FOR TRACH PLACEMENT TOMORROW.
[2021-06-01] MEDS: FUROsemide 10 mg/mL SDV 4mL 40 MG IVP (10:30)
--- NOTE | 2021-06-01 11:28 | PC.SOCIAL ---
IMM not Updated IMM not Updated. Pt is still intubated & is not expected to d/c within the next 24-48hrs.
[2021-06-01] MEDS: propofol 1,000 MG/100 ML INJ 21.77 MG IV ×3 (13:28→21:12)
[2021-06-01] MEDS: dexmedeTOMIDine 0.9 % NaCL 400 MCG/100 ML PREMIX IV (15:43)
[2021-06-01 18:57] LABS: C Reactive Protein 0.3 mg/L (0.0-4.9)
[2021-06-01 22:03] LABS: Erythrocyte Sedimentation Rate 9 mm/hr (0-15)
[2021-06-02] VITALS (39 sets, daily range): BP systolic 86–121; BP diastolic 54–80; PULSE 55–109; RESP 18–25; TEMP 36.7–37.3; O2SAT 72–99
[2021-06-02] MEDS: propofol 1,000 MG/100 ML INJ 21.77 MG IV ×5 (01:18→17:21)
[2021-06-02] MEDS: dexmedeTOMIDine 0.9 % NaCL 400 MCG/100 ML PREMIX 8.66 MCG IV ×2 (01:20→14:13)
[2021-06-02] MEDS: ipratropium-albuterol 3 mL Neb INHALATION ×6 (03:22→23:50)
[2021-06-02 03:46] LABS: Basophils % 0.4 %; Eosinophils # 0.4 10^3/uL (0.0-0.8); Eosinophils % 6.2 %; Hematocrit 31.9 % (37.0-47.0); Hemoglobin 10.2 g/dL (11.5-15.3); Lymphocytes # 2.1 10^3/uL (0.8-4.8); Lymphocytes % 30.3 %; Mean Corpuscular Hemoglobin 25.4 pg (28.0-34.0); Mean Corpuscular Volume 79.4 fl (81-99); Mean Platelet Volume 10.7 fL (7.4-10.4); Monocytes # 0.7 10^3/uL (0.2-0.9); Monocytes % 10.2 %; Neutrophils # 3.62 10^3/uL (1.8-7.7); Neutrophils % 52.2 %; Nucleated Red Blood Cells % 0 %; Platelet Count 176 10^3/cmm (130-400); Red Blood Count 4.02 10^6/uL (4.1-5.3); Red Cell Distribution Width 18.9 % (12.1-15.1); White Blood Count 6.9 10^3/uL (4.0-10.0)
[2021-06-02 04:08] LABS: C Reactive Protein 0.4 mg/L (0.0-4.9)
[2021-06-02 04:12] LABS: Albumin Level 3.4 g/dL (3.5-5.2); Alkaline Phosphatase 93 IU/L (35-105); Blood Urea Nitrogen 14 mg/dL (6-20); Calcium 8.8 mg/dL (8.5-10.5); Carbon Dioxide 23 mmol/L (22-29); Chloride 99 mmol/L (98-107); Globulin 2.5 g/dL (1.3-4.6); Glomerular Filtration Rate 366.1 mL/min (90-130); Glucose 128 mg/dL (65-115); Osmolality Calculated 286 mOsm/kg (285-295); Sodium 137 mmol/L (136-145); Total Bilirubin 0.2 mg/dL (0.15-1.2); Total Protein 5.9 g/dL (6.6-8.7)
[2021-06-02] MEDS: cefepime 1,000 MG in sodium chloride 0.9% (plus) 50 ML 100 MG IV (04:35)
[2021-06-02 05:06] LABS: ABG PCO2 43.2 mmHg (35-45); ABG PH Result 7.46 (7.35-7.45); Arterial Blood Gas Hematocrit 29.6 % (37-47); Base Excess ABG 6.1 mmol/L (-2.0-2.0); Blood Gas Allen Test Pos; Blood Gas Sample Type Arterial; Carboxyhemoglobin 1.3 %THgb (0.4-20.1); HCO3 ABG 30.6 mmol/L (22-26); HGB O2 Sat 89.7 % (95-100); Ionized Calcium Level - ABG 1.2 mmol/L (1.1-1.4); Methemoglobin 2.1 % (0.4-1.5); Oxygen Saturation ABG 92.9; PO2 ABG 63.8 mmHg (80.0-100.0); Total Hemoglobin 9.6 g/dL (12-16)
[2021-06-02 05:07] LABS: Alveolar-Arterial Oxygen Gradi 41.4 mmHg (5-10); Blood Gas Operator Identificat HARKR; Blood Gas Sample Site Radial, right; Blood Gas Tidal Volume 0.44; Oxygen Device VENT
[2021-06-02 05:51] LABS: Erythrocyte Sedimentation Rate 14 mm/hr (0-15)
--- NOTE | 2021-06-02 06:30 | PC.NURSE ---
Shift Note Frequent safety and comfort rounds continue. Patient turned as needed, sometimes would refuse. Orders and/or nursing care completed as indicated. Sedation weaned as tolerated. Patient monitored for response to intervention and treatment(s). Education provided includes propofol and needs reinforcement. Will continue to monitor. Notifed Dr. Nation of brown-red urine color. She said to continue to monitor but no new orders.
[2021-06-02] MEDS: budesonide 0.5 mg/2 mL Neb INHALATION ×2 (08:09→19:15)
[2021-06-02 08:31] LABS: Alanine Aminotransferase 12 U/L (0-33)
[2021-06-02 08:39] LABS: Aspartate Amino Transferase 13 U/L (0-32)
[2021-06-02] MEDS: pantoprazole 40 mg SDV IVP ×2 (09:02→20:51)
[2021-06-02] MEDS: dexamethasone 4 mg/mL INJ 3 MG IVP (09:03)
[2021-06-02] MEDS: sennosides-docusate Tablet 1 TAB PO (09:03)
[2021-06-02] MEDS: zinc gluconate 50 mg Tablet PO (09:03)
[2021-06-02] MEDS: levothyroxine 100 mcg SDV 37.5 MCG IVP (09:03)
[2021-06-02] MEDS: folic acid 1 mg Tablet PO (09:03)
[2021-06-02] MEDS: ascorbic acid 500 mg Tablet PO (09:14)
--- NOTE | 2021-06-02 10:44 | PM.PN ---
Subjective Subjective: Interval history: No acute events overnight. Patient hemodynamically stable and afebrile. Has remained afebrile. Currently on 60% FiO2 with a rate of 18, tidal volume of 440 saturating 92%. Continue to be on sedation with minimal propofol, fentanyl and Precedex of 0.4. Awake and calm. Denies any pain, nausea or vomiting. Plan for tracheostomy during the day today. Documented urine output of 2.9 L in last 24 hours. Medications: Reviewed: Yes Vitals/I&O/Wt Last Vital Signs Temp 98.3 F 06/02/21 04:00 Pulse 75 06/02/21 08:21 Resp 19 H 06/02/21 08:23 BP 93/62 06/02/21 08:00 Pulse Ox 91 06/02/21 08:23 06/01/21 06/02/21 06/02/21 22:59 06:59 14:59 Intake Total 468.355 / 7319.099 7933.605 / 2356.651 Output Total 750 / 2700 240 / 2940 Balance -281.645 / -1504.954 921.605 / -583.349 Weight last 48 hrs Weight 84.368 kg Weight 84.776 kg Physical Exam Narrative: EXAM NARRATIVE: General: No acute distress, AO x3, mildly sedated, GCS: E3 M4 VT HEENT: PERRLA, pupils bilaterally equal and reactive Chest: Bilateral coarse crackles present all over the lung olmos, left more than right, equal good air entry bilaterally CVS: S1-S2 regular, no murmurs, no tachycardia, no gallops, no rubs Abdomen: Soft, nontender, no organomegaly, bowel sounds present Neuro: No focal deficits, no facial deformity, AO x3, power 3/5 in all limbs Urinary Catheter Management^: Lopez: Cath Placed During This Visit: yes Reason for Continuing Indwelling Catheter: Accurate Measurement of Urinary Output in Critically Ill Patients Urinary Catheter Date of Insertion: 05/15/21 Urinary Catheter Time of Insertion: 11:56 Data : 06/02/21 03:25 06/02/21 03:25 A&P Assessment and plan (1) Acute respiratory distress syndrome (ARDS) due to COVID-19 virus: Status: Acute (2) Fungal pneumonia: Status: Acute (3) Pulmonary embolism: Status: Acute (4) Pneumothorax: Status: Acute (5) Methadone dependence: Status: Chronic (6) Hypothyroidism: Status: Chronic Qualifiers: Hypothyroidism type: acquired Qualified Code(s): E03.9 - Hypothyroidism, unspecified (7) Benign essential HTN: Status: Chronic Additional A&P Information #ARDS secondary to COVID-19 pneumonia, superadded fungal pneumonia and pulmonary embolism: #Covid 19 Pneumonia: Severe disease. Ventilator dependent. Finished course of treatment with remdesivir. Post Actemra on May 20. Prolonged dexamethasone course. Decreased to 3 mg IV daily for 5 days. Plan for tracheostomy during the day today. Surgery consulted for PEG tube. For patient and family agreeable. Monitor inflammatory markers every 48 hours including ESR, CRP, D-dimer. Sedation with propofol, fentanyl and Precedex. Plan for stopping propofol but continuing low-dose fentanyl and Precedex overnight post tracheostomy. Start home dose of citalopram and amitriptyline. We will plan to start home methadone but at a lower dose tomorrow. Given ARDS we will try to keep patient as negative as possible. IV Lasix 20 mg today. Strict input output charting, daily weights. Net 10 L negative since admission. Monitor renal functions. Echocardiogram done earlier in the admission shows an EF of 60%, RVSP of 23, trace MR. MRSA negative. For now continue with cefepime to finish a 10-day course. Patient has already finished a course of antibiotics with vancomycin and Levaquin. Sputum culture growing yeast. Continue with caspofungin. Day 03/03 today. CTA concerning for pulmonary embolism. Started on full dose Lovenox. Will monitor for anemia or GI bleed. Isolation precautions for 21 days. Till June 02, 2021. Elevated LFT: Resolved. Chronic Methadone Dependence --Takes 75 mg of methadone daily at home. Hold for now. --Continue fentanyl per protocol Hypothyroidism --TSH 1.32, continue Levothyroxine. History of Vance-en-y gastric bypass --Complicates history, continue supplements Tube feedings decreased to 35 cc/h. Full dose Lovenox will help with DVT prophylaxis. Protonix for PUD prophylaxis. Bowel regimen Full code. Multiple goals of care discussion done with patient's daughter over the phone and in person and with patient at bedside. We discussed that patient in past had wished not to live on life support. We also discussed unfortunately patient is requiring high oxygen supplementation and is currently ventilator dependent for last 15 days. Also discussed fungal pneumonia and new diagnosis of pulmonary embolism. All the questions were answered. For now continue the current treatment for next 3 to 4 days. We discussed that risk for there are 2 option. One option would be to go ahead and do tracheostomy which would mean that she would be on a ventilator for couple of months while we give her lungs some chance to heal and see if she is able to come off the ventilator and eventually to a nasal cannula versus possible terminal extubation in few days which goes in hand with her goals of care which were to not live on life support. Patient is agreeable for tracheostomy and PEG tube placement. Discharge planning: Post tracheostomy and PEG tube we will plan to come down on sedation and possible discharge to LTAC. Case management working on same. Attestations Medical Necessity Statement*: Requires further hospitalization for management of ARDS secondary to COVID-19 pneumonia, fungal pneumonia, pulmonary embolism patient is prepared for tracheostomy and PEG tube placement Critical Care Time: The high probability of a clinically significant, sudden or life threatening deterioration of the patient's [cardiac,] pulmonary, social, sedation, system(s) required my full and direct attention, intervention and personal management. The critical care time is as shown. This time is in addition to time spent performing any reported procedures but includes the following: [x] Data and vital sign review and interpretation [x] Patient assessment, examination and intervention [x] Documentation [x] Medication orders and management Critical Care Time (min): 90 Procedures Arterial Line Size (Gauge): 20 Coding Level of Care Code Acute Real Estate Agency Principal for [facility] Diagnoses Acute respiratory distress syndrome (ARDS) due to COVID-19 virus U07.1; J80 Fungal pneumonia B49; J17 Pulmonary embolism I26.99 Pneumothorax J93.9 Methadone dependence F11.20 Hypothyroidism E03.9 Hypothyroidism type: acquired Benign essential HTN I10
[2021-06-02] MEDS: FUROsemide 10 mg/mL SDV 2mL 20 MG IVP (13:58)
--- NOTE | 2021-06-02 13:59 | PC.NUTR ---
Addendum entered by Frank Shin 06/02/21 14:03: Per MD trach/PEG procedure happening today, so disregard recommendation to resume feeding prior to procedure. Original Note: Tube feeding recommendations: TF rate decreased to 35 ml/hr yesterday, which is more suitable at this time given propofol calories. Feedings held today for possible PEG and trach placement, however noted that procedure will now be tomorrow. Recommend resume Pulmocare at 35 ml/hr until closer to procedure time, or per MD discretion. After PEG placement, would suggest continue with 35 ml/hr, and gradually increase to 50 ml/hr as propofol provision decreases. Receiving 574 kcal/day from propofol at current rate. Continue to recommend checking triglycerides when possible. See full RD assessment for further details.
--- NOTE | 2021-06-02 14:01 | PM.CONSULT ---
Providers/Reason For Consult Consulting Physician/Specialty*: General Surgery Edu Pittman MD Reason for Consult*: Requesting PEG tube Attending Physician: Abel Joshi MD Primary Care Provider: Yaya Myles MD History of Present Illness History of Present Illness Maria Victoria New is a 55 year old female originally admitted with respiratory failure due to COVID-19. She has been in the hospital ever since 05/15/2021. She is currently still on a ventilator and although she remains fairly alert, attempts at weaning have apparently been unsuccessful. She is scheduled to get a tracheostomy later today. She is currently receiving nutrition via an orogastric tube. Dr. Mayorga asked me if I would consider putting the PEG tube in the patient sometime tomorrow. Review of Systems General: Reports: ROS unobtainable due to endotracheal tube (at least not dependable with her being unable to verbalize) Meds/Allergies Home Medications and Allergies Home Medications Medication Instructions Recorded Confirmed Last Taken Type oxybutynin chloride 5 mg tablet 5 mg PO BID 10/08/19 05/15/21 05/14/21 History omeprazole 20 mg PO BID 10/17/19 05/15/21 05/14/21 History gabapentin 600 mg tablet 1,200 mg PO TID 11/19/19 05/15/21 05/14/21 History ibuprofen [Advil] 400 mg PO Q6H PRN 03/23/20 05/15/21 11/12/20 History clonazepam 1 mg tablet 1 mg PO BID PRN tab 08/10/20 05/15/21 05/11/21 History albuterol sulfate [ProAir HFA] 2 puff INHALATION QID PRN 05/12/21 05/15/21 Unknown History amitriptyline 200 mg PO BEDTIME 05/12/21 05/15/21 05/12/21 History citalopram 20 mg PO BEDTIME 05/12/21 05/15/21 05/12/21 History lactulose 10 g PO TID PRN 05/12/21 05/15/21 Unknown History levothyroxine 75 mcg PO QAM 05/12/21 05/15/21 05/13/21 History losartan 25 mg PO QAM 05/12/21 05/15/21 05/13/21 History methadone 75 mg PO DAILY 05/12/21 05/15/21 05/11/21 History Allergies Allergy/AdvReac Type Severity Reaction Status Date / Time amoxicillin Allergy Intermediate rash Verified 05/12/21 15:20 egg Allergy Intermediate Vomiting Verified 05/12/21 15:20 morphine Allergy Intermediate rash Verified 05/12/21 15:20 Penicillins Allergy Intermediate ALGY-Rash Verified 05/12/21 15:20 promethazine Allergy Intermediate rash Verified 05/12/21 15:20 nalbuphine [From Nubain] AdvReac Intermediate ADR-Agitate Verified 05/12/21 15:20 d Current Medications Current Medications Generic Name Dose Route Start Last Admin Trade Name Freq PRN Reason Stop Dose Admin Acetaminophen 650 mg 05/18/21 04:44 05/19/21 17:00 Acetaminophen 325 Mg Tablet PO 650 mg Q6H PRN Administration MILD PAIN Albuterol Sulfate 2 puff 05/15/21 06:57 05/19/21 08:30 Albuterol 8 Gm Mdi INHALATION 2 puff Q4H.RESPIRATORY PRN Administration SHORTNESS OF BREATH Albuterol/Ipratropium 3 ml 05/30/21 12:00 06/02/21 11:44 Ipratropium-Albuterol 3 Ml Neb INHALATION 3 ml Q4H.RESPIRATORY BIA Administration Ascorbic Acid 500 mg 06/02/21 09:00 06/02/21 09:14 Ascorbic Acid 500 Mg Tablet PO 500 mg DAILY BIA Administration Budesonide 0.5 mg 05/30/21 20:00 06/02/21 08:09 Budesonide 0.5 Mg/2 Ml Neb INHALATION 0.5 mg BID.RESPIRATORY BIA Administration Dexamethasone 3 mg 05/31/21 08:00 06/02/21 09:03 Dexamethasone 4 Mg/Ml Inj IVP 06/05/21 07:59 3 mg Q24H BIA Administration Enoxaparin Sodium 80 mg 05/30/21 21:00 06/01/21 20:40 Enoxaparin 80 Mg/0.8 Ml Syringe SUBCUT 80 mg Q12H BIA Administration Ferrous Sulfate 300 mg 05/15/21 09:30 06/02/21 09:02 Ferrous Sulfate 300 Mg/5 Ml Udc PO 300 mg BIDWM BIA Administration Folic Acid 1 mg 05/15/21 09:05 06/02/21 09:03 Folic Acid 1 Mg Tablet PO 1 mg DAILY BIA Administration Hydralazine HCl 10 mg 05/22/21 13:03 05/23/21 16:51 Hydralazine 20 Mg/Ml Inj 1 Ml IVP 10 mg Q4H PRN Administration FOR SBP>180, or DBP>100 Propofol 1,000 mg in 100 mls @ 0 mls/hr 05/20/21 12:00 06/02/21 13:58 Diprivan IV 40 mcg/kg/min .Q0M BIA 21.77 mls/hr Administration Protocol Per Protocol Cefepime HCl 1,000 mg/ Sodium 50 mls @ 100 mls/hr 05/23/21 17:00 06/02/21 05:46 Chloride IV 06/02/21 16:59 Infused Q12H BIA Infusion Protocol Fentanyl 1,000 mcg/ Sodium 100 mls @ 0 mls/hr 05/26/21 16:00 06/02/21 05:46 Chloride IV 100 mcg/hr .Q0M BIA 10 mls/hr Administration Protocol Per Protocol Caspofungin 50 mg/ Sodium 250 mls @ 250 mls/hr 05/31/21 11:00 06/02/21 13:58 Chloride IV 06/06/21 10:59 250 mls/hr Q24H BIA Administration dexmedeTOMIDine 0.9 % NaCL 400 mcg in 100 mls @ 0 mls/hr 05/30/21 10:30 06/02/21 01:20 Dexmedetomidine-Ns IV 0.4 mcg/kg/hr .Q0M BIA 8.66 mls/hr Administration Protocol Per Protocol Labetalol HCl 10 mg 05/22/21 08:28 05/23/21 17:15 Labetalol 5 Mg/Ml Sdv 20ml IVP 10 mg Q4H PRN Administration HYPERTENSION Lanolin 1 applic 05/26/21 10:40 05/26/21 14:57 Lanolin Oint 7 Gm TOPICAL 1 applic PRN PRN Administration DRYNESS Levothyroxine Sodium 37.5 mcg 05/22/21 09:00 06/02/21 09:03 Levothyroxine 100 Mcg Sdv IVP 37.5 mcg DAILY BIA Administration Methadone HCl 50 mg 05/16/21 09:00 05/20/21 08:27 Methadone 10 Mg Tablet PO 50 mg DAILY BIA Administration Methadone HCl 10 mg 05/19/21 14:00 05/19/21 16:20 Methadone 10 Mg Tablet PO Not Given Q24H BIA Non-Formulary Route 0 each 05/22/21 18:33 05/22/21 23:16 - Milrinone 200 Mcg/ INHALATION 1 each Ml Q4H PRN Administration RESP DILATION Ondansetron HCl 4 mg 05/15/21 01:42 05/18/21 14:31 Ondansetron 2 Mg/Ml Sdv 2 Ml IVP 4 mg Q6H PRN Administration NAUSEA AND VOMITING Pantoprazole Sodium 40 mg 05/15/21 09:15 06/02/21 09:02 Pantoprazole 40 Mg Sdv IVP 40 mg Q12H BIA Administration Polyethylene Glycol 17 gm 05/18/21 13:55 06/02/21 09:33 Polyethylene Glycol 3350 Pkt 17 Gm PO Not Given DAILY BIA Scopolamine 1 patch 05/31/21 13:30 05/31/21 15:12 Scopolamine 1.5 Patch TRANSDERMA 1 patch Q3D BIA Administration Senna/Docusate Sodium 1 tab 05/19/21 09:00 06/02/21 09:03 Sennosides-Docusate Tablet PO 1 tab DAILY BIA Administration Zinc Gluconate 50 mg 05/15/21 09:00 06/02/21 09:03 Zinc Gluconate 50 Mg Tablet PO 50 mg DAILY BIA Administration PFSH Acute PFSH: Medical History Benign essential HTN Cataract Generalized anxiety disorder Hx of chest pain Hx of shortness of breath Hypothyroidism Incontinence in female Major depressive disorder, recurrent severe without psychotic features Methadone dependence Microcytic anemia Neuropathy Other urethral stricture, female Post-traumatic stress disorder, chronic Psychiatric care Surgical History (Updated 05/15/21 @ 06:13 by Winter Monterroso MD) H/O gastric bypass H/O: hysterectomy History of amputation of great toe of both feet History of cholecystectomy History of esophagogastroduodenoscopy (EGD) History of reconstructive repair of rectocele History of total right hip replacement Hx of appendectomy Family History Father , AT AGE 62 Cancer PROSTATE CANCER Grandmother Stroke Denies family history of Anesthesia complication Bleeding disorder Social History Smoking and tobacco status: never smoked Second hand smoke exposure: No Alcohol intake: never Adopted: Yes (Grandparents adopted her.) Caregiver/support person: No Lives independently: Yes Household members: none Housing: Apartment Marital status: / Number of children: 2 Number of grandchildren: 4 Highest education level completed: Associate Degree: Occupational, Technical, Vocational Program service: No Current occupational status: disabled Current occupational exposures/hazards: No Pets and animals: Yes Pets & animals: cat(s) Leisure activites: reading and other Leisure activities details: puzzles Sexually active: No Current gender identity: Female Ekta/Sikhism: Mandaen Special ekta needs: No Agree to transfusion: Yes Financial difficulty paying for basics: Not Very Hard Female Reproductive History: Para: 2 Spontaneous abortions: No Vitals/I&O/Wt Last Vital Signs Temp 98.3 F 06/02/21 04:00 Pulse 64 06/02/21 12:00 Resp 18 06/02/21 11:59 BP 110/75 06/02/21 12:00 Pulse Ox 92 06/02/21 12:00 06/01/21 06/02/21 06/02/21 22:59 06:59 14:59 Intake Total 468.355 / 2356.651 1161.605 / 2356.651 160.956 / 160.956 Output Total 750 / 2940 240 / 2940 Balance -281.645 / -583.349 921.605 / -583.349 160.956 / 160.956 Weight last 48 hrs Weight 186 lb Weight 186 lb 14.4 oz Physical Exam Narrative: EXAM NARRATIVE: PulseThe patient was counted in the ICU. She is on a ventilator via an endotracheal tube and also has an orogastric tube in place. Despite this, she is actually alert and can nod appropriately to questions. Equal. No carotid bruits are heard. The lungs are clear anteriorly. The heart is regular. The abdomen is moderately obese. There is a healed oblique right upper quadrant scar and a healed lower midline scar in addition to some laparoscopic scars. She does not seem to have any significant tenderness or masses. The extremities reveal no edema. She can move all limbs to command. Urinary Catheter Management^: Lopez: Cath Placed During This Visit: yes Reason for Continuing Indwelling Catheter: Accurate Measurement of Urinary Output in Critically Ill Patients Urinary Catheter Date of Insertion: 05/15/21 Urinary Catheter Time of Insertion: 11:56 A&P Assessment and plan (1) Pneumonia due to COVID-19 virus: I have been asked to consider a PEG tube placement in this patient with ongoing respiratory failure for ongoing nutritional supplementation. She is scheduled for a bedside tracheostomy tonight. There is some word that the patient has had a gastric bypass in the past. I am going to have to research this to find out if a PEG tube is even an option. Status: Acute Consult Attestations Medical Necessity Statement: See admitting service's notation. 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
[2021-06-02] MEDS: midazolam 1 mg/mL INJ 2 mL 2 MG IVP ×3 (16:30→17:09)
[2021-06-02] MEDS: rocuronium 10 mg/mL INJ 5mL IV ×2 (16:49→16:50)
--- NOTE | 2021-06-02 17:48 | PM.CONSULT ---
Providers/Reason For Consult Consulting Physician/Specialty*: Pulmonary critical care medicine Reason for Consult*: Tracheostomy tube placement Attending Physician: Abel Joshi MD Primary Care Provider: Yaya Myles MD History of Present Illness History of Present Illness Maria Victoria New is a 55 year old female who presented to the hospital on May 14. Patient suffered from severe COVID-19, ARDS secondary to SARS-CoV-2 pneumonia. The patient was intubated on May 20 underwent prone positioning. The patient has improved with her mental status however she has continued to require approximately 55 to 60% FiO2 on the ventilator. I was asked to evaluate the patient for tracheostomy tube placement. The patient was intubated and sedated in the ICU however she was awake and able to follow commands. The patient in fact provided consent for the tracheostomy tube placement. I explained the risk including inability to talk after the procedure is performed the patient reported understanding by nodding her head. Review of Systems Narrative: Unable to obtain due to clinical condition. Meds/Allergies Home Medications and Allergies Home Medications Medication Instructions Recorded Confirmed Last Taken Type oxybutynin chloride 5 mg tablet 5 mg PO BID 10/08/19 05/15/21 05/14/21 History omeprazole 20 mg PO BID 10/17/19 05/15/21 05/14/21 History gabapentin 600 mg tablet 1,200 mg PO TID 11/19/19 05/15/21 05/14/21 History ibuprofen [Advil] 400 mg PO Q6H PRN 03/23/20 05/15/21 11/12/20 History clonazepam 1 mg tablet 1 mg PO BID PRN tab 08/10/20 05/15/21 05/11/21 History albuterol sulfate [ProAir HFA] 2 puff INHALATION QID PRN 05/12/21 05/15/21 Unknown History amitriptyline 200 mg PO BEDTIME 05/12/21 05/15/21 05/12/21 History citalopram 20 mg PO BEDTIME 05/12/21 05/15/21 05/12/21 History lactulose 10 g PO TID PRN 05/12/21 05/15/21 Unknown History levothyroxine 75 mcg PO QAM 05/12/21 05/15/21 05/13/21 History losartan 25 mg PO QAM 08/05/15/21 05/13/21 History methadone 75 mg PO DAILY 05/12/21 05/15/21 05/11/21 History Allergies Allergy/AdvReac Type Severity Reaction Status Date / Time amoxicillin Allergy Intermediate rash Verified 05/12/21 15:20 egg Allergy Intermediate Vomiting Verified 05/12/21 15:20 morphine Allergy Intermediate rash Verified 05/12/21 15:20 Penicillins Allergy Intermediate ALGY-Rash Verified 05/12/21 15:20 promethazine Allergy Intermediate rash Verified 05/12/21 15:20 [email or web address] [From Nubain] AdvReac Intermediate ADR-Agitate Verified 05/12/21 15:20 d Current Medications Current Medications Generic Name Dose Route Start Last Admin Trade Name Freq PRN Reason Stop Dose Admin Acetaminophen 650 mg 05/18/21 04:44 05/19/21 17:00 Acetaminophen 325 Mg Tablet PO 650 mg Q6H PRN Administration MILD PAIN Albuterol Sulfate 2 puff 05/15/21 06:57 05/19/21 08:30 Albuterol 8 Gm Mdi INHALATION 2 puff Q4H.RESPIRATORY PRN Administration SHORTNESS OF BREATH Albuterol/Ipratropium 3 ml 05/30/21 12:00 06/02/21 16:16 Ipratropium-Albuterol 3 Ml Neb INHALATION 3 ml Q4H.RESPIRATORY BIA Administration Ascorbic Acid 500 mg 06/02/21 09:00 06/02/21 09:14 Ascorbic Acid 500 Mg Tablet PO 500 mg DAILY BIA Administration Budesonide 0.5 mg 05/30/21 20:00 06/02/21 08:09 Budesonide 0.5 Mg/2 Ml Neb INHALATION 0.5 mg BID.RESPIRATORY BIA Administration Dexamethasone 3 mg 05/31/21 08:00 06/02/21 09:03 Dexamethasone 4 Mg/Ml Inj IVP 06/05/21 07:59 3 mg Q24H BIA Administration Enoxaparin Sodium 80 mg 05/30/21 21:00 06/01/21 20:40 Enoxaparin 80 Mg/0.8 Ml Syringe SUBCUT 80 mg Q12H BIA Administration Ferrous Sulfate 300 mg 05/15/21 09:30 06/02/21 09:02 Ferrous Sulfate 300 Mg/5 Ml Udc PO 300 mg BIDWM BIA Administration Folic Acid 1 mg 05/15/21 09:05 06/02/21 09:03 Folic Acid 1 Mg Tablet PO 1 mg DAILY BIA Administration Hydralazine HCl 10 mg 05/22/21 13:03 05/23/21 16:51 Hydralazine 20 Mg/Ml Inj 1 Ml IVP 10 mg Q4H PRN Administration FOR SBP>180, or DBP>100 Propofol 1,000 mg in 100 mls @ 0 mls/hr 05/20/21 12:00 06/02/21 17:21 Diprivan IV 40 mcg/kg/min .Q0M BIA 21.77 mls/hr Administration Protocol Per Protocol Fentanyl 1,000 mcg/ Sodium 100 mls @ 0 mls/hr 05/26/21 16:00 06/02/21 17:38 Chloride IV 100 mcg/hr .Q0M BIA 10 mls/hr Administration Protocol Per Protocol Caspofungin 50 mg/ Sodium 250 mls @ 250 mls/hr 05/31/21 11:00 06/02/21 16:49 Chloride IV 06/06/21 10:59 Infused Q24H BIA Infusion dexmedeTOMIDine 0.9 % NaCL 400 mcg in 100 mls @ 0 mls/hr 05/30/21 10:30 06/02/21 14:13 Dexmedetomidine-Ns IV 0.4 mcg/kg/hr .Q0M BIA 8.66 mls/hr Administration Protocol Per Protocol Labetalol HCl 10 mg 05/22/21 08:28 05/23/21 17:15 Labetalol 5 Mg/Ml Sdv 20ml IVP 10 mg Q4H PRN Administration HYPERTENSION Lanolin 1 applic 05/26/21 10:40 05/26/21 14:57 Lanolin Oint 7 Gm TOPICAL 1 applic PRN PRN Administration DRYNESS Levothyroxine Sodium 37.5 mcg 05/22/21 09:00 06/02/21 09:03 Levothyroxine 100 Mcg Sdv IVP 37.5 mcg DAILY BIA Administration Methadone HCl 50 mg 05/16/21 09:00 05/20/21 08:27 Methadone 10 Mg Tablet PO 50 mg DAILY BIA Administration Methadone HCl 10 mg 05/19/21 14:00 05/19/21 16:20 Methadone 10 Mg Tablet PO Not Given Q24H BIA Non-Formulary Route 0 each 05/22/21 18:33 05/22/21 23:16 - Milrinone 200 Mcg/ INHALATION 1 each Ml Q4H PRN Administration RESP DILATION Ondansetron HCl 4 mg 05/15/21 01:42 05/18/21 14:31 Ondansetron 2 Mg/Ml Sdv 2 Ml IVP 4 mg Q6H PRN Administration NAUSEA AND VOMITING Pantoprazole Sodium 40 mg 05/15/21 09:15 06/02/21 09:02 Pantoprazole 40 Mg Sdv IVP 40 mg Q12H BIA Administration Polyethylene Glycol 17 gm 05/18/21 13:55 06/02/21 09:33 Polyethylene Glycol 3350 Pkt 17 Gm PO Not Given DAILY BIA Scopolamine 1 patch 05/31/21 13:30 05/31/21 15:12 Scopolamine 1.5 Patch TRANSDERMA 1 patch Q3D BIA Administration Senna/Docusate Sodium 1 tab 05/19/21 09:00 06/02/21 09:03 Sennosides-Docusate Tablet PO 1 tab DAILY BIA Administration Zinc Gluconate 50 mg 05/15/21 09:00 06/02/21 09:03 Zinc Gluconate 50 Mg Tablet PO 50 mg DAILY BIA Administration PFSH Acute PFSH: Medical History Benign essential HTN Cataract Generalized anxiety disorder Hx of chest pain Hx of shortness of breath Hypothyroidism Incontinence in female Major depressive disorder, recurrent severe without psychotic features Methadone dependence Microcytic anemia Neuropathy Other urethral stricture, female Post-traumatic stress disorder, chronic Psychiatric care Surgical History (Updated 05/15/21 @ 06:13 by Winter Monterroso MD) H/O gastric bypass H/O: hysterectomy History of amputation of great toe of both feet History of cholecystectomy History of esophagogastroduodenoscopy (EGD) History of reconstructive repair of rectocele History of total right hip replacement Hx of appendectomy Family History Father , AT AGE 62 Cancer PROSTATE CANCER Grandmother Stroke Denies family history of Anesthesia complication Bleeding disorder Social History Smoking and tobacco status: never smoked Second hand smoke exposure: No Alcohol intake: never Adopted: Yes (Grandparents adopted her.) Caregiver/support person: No Lives independently: Yes Household members: none Housing: Apartment Marital status: / Number of children: 2 Number of grandchildren: 4 Highest education level completed: Associate Degree: Occupational, Technical, Vocational Program service: No Current occupational status: disabled Current occupational exposures/hazards: No Pets and animals: Yes Pets & animals: cat(s) Leisure activites: reading and other Leisure activities details: puzzles Sexually active: No Current gender identity: Female Ekta/Cheondoism: Jehovah'S Witness Special ekta needs: No Agree to transfusion: Yes Financial difficulty paying for basics: Not Very Hard Female Reproductive History: Para: 2 Spontaneous abortions: No Vitals/I&O/Wt Last Vital Signs Temp 98.3 F 06/02/21 04:00 Pulse 74 06/02/21 16:00 Resp 18 06/02/21 17:34 BP 113/80 06/02/21 16:00 Pulse Ox 94 06/02/21 17:34 06/02/21 06/02/21 06/02/21 06:59 14:59 22:59 Intake Total 1161.605 / 2356.651 260.956 / 260.956 423.655 / 684.611 Output Total 240 / 2940 750 / 750 Balance 921.605 / -583.349 260.956 / 260.956 -326.345 / -65.389 Weight last 48 hrs Weight 186 lb Weight 186 lb 14.4 oz Physical Exam Narrative: EXAM NARRATIVE: General: Patient is intubated and sedated, awake and alert, answers questions by nodding Neck: No JVD Respiratory: Auscultation: Coarse crackles bilaterally, no wheezing or rhonchi Cardiovascular: Regular rate and rhythm, S1-S2 present, no murmur, no peripheral edema. Abdomen: Soft, nontender, nondistended, positive bowel sound Skin: No rash Neuro: Patient is intubated and sedated but able to follow commands and move all extremities. Urinary Catheter Management^: Lopez: Cath Placed During This Visit: yes Reason for Continuing Indwelling Catheter: Accurate Measurement of Urinary Output in Critically Ill Patients Urinary Catheter Date of Insertion: 05/15/21 Urinary Catheter Time of Insertion: 11:56 Data Other Data: Attestation for Other Data: I personally reviewed and interpreted the following: Other data: I have reviewed the patient's laboratory, [place] and neurologic data. The chest x-ray on May 31 revealed bilateral infiltrate A&P Assessment and plan (1) Acute respiratory distress syndrome (ARDS) due to COVID-19 virus: This is a 55-year-old lady with severe COVID-19. The patient has improved clinically however continues to require a significant amount of oxygen. The patient had been intubated for 14 days. At this point, the best course of action is to proceed with tracheostomy. I have discussed the procedure in detail with the patient. She reported understanding by nodding her head. I will perform the tracheostomy procedure today. Status: Acute Procedures Arterial Line Size (Gauge): 20 Coding Level of Care Code Acute [employer]it[employer] for [facility] Diagnoses Acute respiratory distress syndrome (ARDS) due to COVID-19 virus U07.1; J80
--- NOTE | 2021-06-02 17:55 | P.PCN_ITS ---
Procedure/Consent Time out: Time Out Performed: Yes Consent: Consent for Procedure: Emergency procedure Procedure Narrative: Name of the procedure: Endotracheal intubation. Indication: Accidental dislodgment of the ET tube during preparation of percutaneous tracheostomy tube placement Medications: Versed, fentanyl, propofol IV Procedure: The patient was positioned optimally. The patient was oxygenated with 100% oxygen via facemask ventilation. The video endoscopy blade was introduced and advanced till vocal cords were visualized. The endotracheal tube was advanced through the vocal cords under direct visualization. There was fogging of the ET tube, positive change in end- tidal CO2 monitor, bilateral chest rise, bilateral positive breath sound. The ET tube was secured at 21 cm at the lips. Complications: There was no immediate complications. Chest x-ray: Pending Acute Procedures Arterial Line: Size (Gauge): 20 Epistaxis Control: Time out performed: Yes
--- NOTE | 2021-06-02 17:57 | PM.ACPR ---
Procedure/Consent Time out: Time Out Performed: Yes Consent: Consent for Procedure: Consent obtained from patient Procedure Narrative: Name of the procedure: Percutaneous tracheostomy. Indication: Prolonged mechanical ventilation. Medications: 1% lidocaine 10 mL, the patient was sedated and paralyzed in the intensive care unit. Description of the procedure: The thyroid cartilage, cricoid cartilage and suprasternal notch was identified and marked. A high-frequency ultrasound probe was also used to confirm the anatomic landmarks. The neck was extended by putting a roll under his shoulder. The bronchoscope was introduced through the endotracheal tube. The endotracheal tube was pulled until it reached the subglottic area. A good visualization of the upper trachea was obtained with the bronchoscope. The site was prepared using sterile technique. The skin and subcutaneous tissue was anesthetized with 1% lidocaine. A vertical incision was made in the midline overlying the second and third tracheal ring. The incision was bluntly dissected with a hemostat. The needle was then inserted in between the second and third tracheal ring. The tip of the needle was noted in the center of the upper trachea. The guidewire was then introduced. Using modified Seldinger technique a size 6 Shiley tracheostomy tube was inserted. Post procedure bronchoscopy through the tracheostomy tube revealed good positioning of the distal end of the tracheostomy tube. The tracheostomy tube was in the lumen and not touching the barrera. The tracheostomy tube was secured with 2 sutures and tracheostomy tie. Blood loss: 5 mL. Complications: None. Chest x-ray: Pending Acute Procedures Arterial Line: Size (Gauge): 20 Epistaxis Control: Time out performed: Yes
--- NOTE | 2021-06-02 17:59 | XRR_ITS ---
PROCEDURE INFORMATION: Exam: XR Chest Exam date and time: 06/02/2021 5:59 PM Age: 55 years old Clinical indication: Device placement; Tracheostomy placement or adjustment; Additional info: Post tracheostomy TECHNIQUE: Imaging protocol: XR of the chest. Views: 1 view. COMPARISON: CR (CHEST, ) 05/31/2021 4:57 AM FINDINGS: Tubes, catheters and devices: Trach tube with tip 4.9 cm above the emily. Right IJ triple-lumen catheter with tip over the mid SVC. Right PICC line with tip over the proximal SVC. Lungs: Patchy ground-glass opacities in both lungs are unchanged. Pleural spaces: Unremarkable. No pleural effusion. No pneumothorax. Heart/Mediastinum: Unremarkable. No cardiomegaly. Bones/joints: Posterior left 4th and 5th rib fractures. XR/XR chest 1V portable [id number] IMPRESSION: 1. Stable multilobar pneumonia versus pulmonary edema.
--- NOTE | 2021-06-02 18:27 | PC.NURSE ---
Trach was placed at bedside by Dr. Crowder. Two 50mcg bolus of fentanyl were given and three doses of versed was given
--- NOTE | 2021-06-02 18:35 | PC.NURSE ---
This nurse attempted to place NG tube. Patient was shaking head and attempting to grab tubing. Dr. lira
[2021-06-03] VITALS (32 sets, daily range): BP systolic 95–150; BP diastolic 68–92; PULSE 60–109; RESP 18–228; TEMP 36.8–37.1; O2SAT 91–97
[2021-06-03] MEDS: dexmedeTOMIDine 0.9 % NaCL 400 MCG/100 ML PREMIX 8.66 MCG IV (00:36)
[2021-06-03] MEDS: LORazepam 2 mg/mL INJ 1 mL 1 MG IVP (03:16)
[2021-06-03] MEDS: ipratropium-albuterol 3 mL Neb INHALATION ×4 (04:03→19:59)
[2021-06-03 04:34] LABS: Basophils % 0.3 %; Eosinophils # 0.4 10^3/uL (0.0-0.8); Eosinophils % 5.8 %; Hematocrit 33.5 % (37.0-47.0); Hemoglobin 10.3 g/dL (11.5-15.3); Lymphocytes # 1.2 10^3/uL (0.8-4.8); Lymphocytes % 19.2 %; Mean Corpuscular HGB Conc 30.7 g/dL (30.0-36.0); Mean Corpuscular Hemoglobin 24.1 pg (28.0-34.0); Mean Corpuscular Volume 78.3 fl (81-99); Mean Platelet Volume 10.5 fL (7.4-10.4); Monocytes # 0.6 10^3/uL (0.2-0.9); Monocytes % 9.5 %; Neutrophils # 4.12 10^3/uL (1.8-7.7); Neutrophils % 64.6 %; Nucleated Red Blood Cells % 0 %; Platelet Count 183 10^3/cmm (130-400); Red Blood Count 4.28 10^6/uL (4.1-5.3); Red Cell Distribution Width 18.8 % (12.1-15.1); White Blood Count 6.4 10^3/uL (4.0-10.0)
[2021-06-03 04:46] LABS: ABG PCO2 40.8 mmHg (35-45); ABG PH Result 7.47 (7.35-7.45); Base Excess ABG 5.4 mmol/L (-2.0-2.0); Blood Gas Allen Test Pos; Blood Gas Sample Type Arterial; Carboxyhemoglobin 1.3 %THgb (0.4-20.1); HCO3 ABG 29.5 mmol/L (22-26); HGB O2 Sat 91.5 % (95-100); Ionized Calcium Level - ABG 1.2 mmol/L (1.1-1.4); Methemoglobin 0.9 % (0.4-1.5); Oxygen Saturation ABG 93.5; PO2 ABG 64.8 mmHg (80.0-100.0); Potassium Level - ABG 3.7 mmol/L (3.5-5.0); Total Hemoglobin 10.4 g/dL (12-16)
[2021-06-03 04:47] LABS: Alveolar-Arterial Oxygen Gradi 68.5 mmHg (5-10); Blood Gas Sample Site Radial, left; Blood Gas Tidal Volume 0.44; Oxygen Device VENT
[2021-06-03] MEDS: haloperidol inj 5 mg/mL INJ 1 mL IVP (04:52)
[2021-06-03 05:04] LABS: Albumin Level 3.5 g/dL (3.5-5.2); Alkaline Phosphatase 97 IU/L (35-105); Anion Gap 17.8 (5-19); Blood Urea Nitrogen 12 mg/dL (6-20); Calcium 8.7 mg/dL (8.5-10.5); Carbon Dioxide 22 mmol/L (22-29); Chloride 98 mmol/L (98-107); Glomerular Filtration Rate 366.1 mL/min (90-130); Glucose 140 mg/dL (65-115); Osmolality Calculated 280 mOsm/kg (285-295); Potassium 3.8 mmol/L (3.5-5.1); Sodium 134 mmol/L (136-145); Total Bilirubin 0.4 mg/dL (0.15-1.2); Total Protein 6.5 g/dL (6.6-8.7)
[2021-06-03 05:05] LABS: C Reactive Protein 0.3 mg/L (0.0-4.9)
[2021-06-03 05:26] LABS: Alanine Aminotransferase < 5 U/L (0-33); Aspartate Amino Transferase 5 U/L (0-32)
--- NOTE | 2021-06-03 05:42 | PC.NURSE ---
Shift Note Frequent safety and comfort rounds continue. Pt very agitated and restless throughout the night. Notified Dr. Nation, Ana and Orlando ordered. Orders and/or nursing care completed as indicated. Patient did not respond to medication and was still very restless. Dr. Nation increased rate of precedex to 1.2. Education provided includes methods to decrease anxiety/agitation. Patient needs reinforcement Will continue to monitor.
[2021-06-03 06:42] LABS: Erythrocyte Sedimentation Rate 16 mm/hr (0-15)
[2021-06-03] MEDS: budesonide 0.5 mg/2 mL Neb INHALATION ×2 (07:58→19:59)
[2021-06-03] MEDS: pantoprazole 40 mg SDV IVP ×2 (08:30→20:22)
[2021-06-03] MEDS: levothyroxine 100 mcg SDV 37.5 MCG IVP (08:30)
[2021-06-03] MEDS: dexamethasone 4 mg/mL INJ 3 MG IVP (08:30)
--- NOTE | 2021-06-03 09:40 | P.PN_ITS ---
Subjective Subjective: Interval history: Patient underwent tracheostomy last night. 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 A PEG tube will not be possible in this situation. Vitals/I&O/Wt Last Vital Signs Temp 98.8 F 06/03/21 04:00 Pulse 97 06/03/21 09:00 Resp 29 H 06/03/21 08:00 BP 130/80 06/03/21 09:00 Pulse Ox 96 06/03/21 09:00 06/02/21 06/03/21 06/03/21 22:59 06:59 14:59 Intake Total 473.243 / 824.119 89.92 / 824.119 Output Total 2050 / 2350 300 / 2350 Balance -1576.757 / -1525.881 -210.08 / -1525.881 Weight last 48 hrs Weight 177 lb 4.8 oz Weight 186 lb Physical Exam Narrative: EXAM NARRATIVE: Tracheostomy in place. Urinary Catheter Management^: Lopez: Cath Placed During This Visit: yes Reason for Continuing Indwelling Catheter: Accurate Measurement of Urinary Output in Critically Ill Patients Urinary Catheter Date of Insertion: 05/15/21 Urinary Catheter Time of Insertion: 11:56 Data : 06/03/21 04:25 06/03/21 04:25 A&P Assessment and plan (1) Acute respiratory distress syndrome (ARDS) due to COVID-19 virus: As it appears a PEG tube will not be possible, a larger procedure would be necessary, i.e. a open jejunostomy tube placement. It would be interesting to see how the patient progresses in the next few days from a swallowing standpoint now that she does not have an oral endotracheal tube in place anymore. If there is any way for her to avoid a jejunostomy tube it would be ideal. We will discuss with the others involved. Status: Acute Attestations Medical Necessity Statement*: See admitting service's notation. 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
[2021-06-03] MEDS: midazolam 1 mg/mL INJ 2 mL 2 MG IVP (11:18)
--- NOTE | 2021-06-03 11:38 | XR_ITS ---
WS: [id number] Portable AP semiupright chest, 06/03/2021 Clinical Data: NG placement Comparison: Portable chest, 06/02/2021 Findings: A feeding tube has been inserted and curls in the body of the stomach. The tracheal tube, r ight internal jugular venous catheter and right PICC line remain the same. There are bilateral patchy pulmonary opacities unchanged. Monitor leads are on the chest wall. The left lateral fourth and fift h rib fractures are seen. XR/XR chest 1V portable [id number] Impression: 1. Insertion of feeding tube. 2. No change in patchy pulmonary opacities. 3. No change in position of multiple tubes.
--- NOTE | 2021-06-03 11:38 | PC.NURSE ---
NG tube was placed by this nurse. Order for xray placed to confirm placement.
[2021-06-03] MEDS: HYDROmorphone 1 mg/mL INJ 1 mL 0.5 MG IVP ×3 (12:28→23:35)
--- NOTE | 2021-06-03 13:37 | PC.SOCIAL ---
IMM Update pg 2 of IMM updated via telephone with Daughter Sheeba.
[2021-06-03] MEDS: scopolamine 1.5 Patch 1 PATCH TRANSDERMA (15:13)
--- NOTE | 2021-06-03 15:47 | P.PN_ITS ---
Subjective Subjective: Interval history: In last 24 hours patient underwent successful tracheostomy yesterday. Today morning on examination she is on sedation with Precedex of 1.2, fentanyl 25 mics on pressure control mode /10, 60% FiO2. Saturating 93%. Today patient was sedated with 2 of Versed and NG tube was placed. Medications: Reviewed: Yes Vitals/I&O/Wt Last Vital Signs Temp 98.8 F 06/03/21 04:00 Pulse 104 H 06/03/21 14:00 Resp 24 H 06/03/21 11:36 BP 150/92 06/03/21 12:00 Pulse Ox 94 06/03/21 12:00 06/03/21 06/03/21 06/03/21 06:59 14:59 22:59 Intake Total 89.92 / 824.119 Output Total 300 / 2350 Balance -210.08 / -1525.881 Weight last 48 hrs Weight 80.422 kg Weight 84.368 kg Physical Exam Narrative: EXAM NARRATIVE: General: No acute distress, AO x3, mildly sedated, GCS: E3 M4 VT HEENT: PERRLA, pupils bilaterally equal and reactive Chest: Bilateral coarse crackles present all over the lung olmos, left more than right, equal good air entry bilaterally CVS: S1-S2 regular, no murmurs, no tachycardia, no gallops, no rubs Abdomen: Soft, nontender, no organomegaly, bowel sounds present Neuro: No focal deficits, no facial deformity, AO x3, power 3/5 in all limbs Urinary Catheter Management^: Lopez: Cath Placed During This Visit: yes Reason for Continuing Indwelling Catheter: Accurate Measurement of Urinary Output in Critically Ill Patients Urinary Catheter Date of Insertion: 05/15/21 Urinary Catheter Time of Insertion: 11:56 Data : 06/03/21 04:25 06/03/21 04:25 A&P Assessment and plan (1) Acute respiratory distress syndrome (ARDS) due to COVID-19 virus: Status: Acute (2) Fungal pneumonia: Status: Acute (3) Pulmonary embolism: Status: Acute (4) Pneumothorax: Status: Acute (5) Methadone dependence: Status: Chronic (6) Hypothyroidism: Status: Chronic Qualifiers: Hypothyroidism type: acquired Qualified Code(s): E03.9 - Hypothyroidism, unspecified (7) Benign essential HTN: Status: Chronic (8) Tracheostomy in place: Status: Acute Additional A&P Information #ARDS secondary to COVID-19 pneumonia, superadded fungal pneumonia and pulmonary embolism: #Covid 19 Pneumonia: Severe disease. Ventilator dependent. Finished course of treatment with remdesivir. Post Actemra on May 20. Prolonged dexamethasone course. Decreased to 3 mg IV daily for 5 days. Post tracheostomy June 02. Surgery consulted for PEG tube. Little difficult with PEG tube given her history of gastric sleeve surgery. We will continue to follow surgical re commendations. Off isolation June 03. Monitor inflammatory markers every 48 hours including ESR, CRP, D-dimer. Continue Precedex. Stop fentanyl. Switch to 25 mcg every 2 hours as needed pushes. Dilaudid 0.5 every 6 hours. We will plan to start methadone at a lower dose tomorrow. Start home dose of citalopram and amitriptyline. We will plan to start home methadone but at a lower dose tomorrow. Given ARDS we will try to keep patient as negative as possible. IV Lasix 20 mg today. Strict input output charting, daily weights. Net 10 L negative since admission. Monitor renal functions. Echocardiogram done earlier in the admission shows an EF of 60%, RVSP of 23, trace MR. MRSA negative. Last dose of cefepime today. Patient has already finished a course of antibiotics with vancomycin and Levaquin. Sputum culture growing yeast. Continue with caspofungin. Day 04/02 today. CTA concerning for pulmonary embolism. Started on full dose Lovenox. Will monitor for anemia or GI bleed. Elevated LFT: Resolved. Chronic Methadone Dependence --Takes 75 mg of methadone daily at home. Hold for now. --Continue fentanyl pushes as above. Hypothyroidism --TSH 1.32, continue Levothyroxine. History of Vance-en-y gastric bypass --Complicates history, continue supplements Tube feedings decreased to 35 cc/h. Full dose Lovenox will help with DVT prophylaxis. Protonix for PUD prophylaxis. Bowel regimen Full code. Multiple goals of care discussion done with patient's daughter over the phone and in person and with patient at bedside. We discussed that patient in past had wished not to live on life support. We also discussed unfortunately patient is requiring high oxygen supplementation and is currently ventilator dependent for last 15 days. Also discussed fungal pneumonia and new diagnosis of pulmonary embolism. All the questions were answered. For now continue the current treatment for next 3 to 4 days. We discussed that risk for there are 2 option. One option would be to go ahead and do tracheostomy which would mean that she would be on a ventilator for couple of months while we give her lungs some chance to heal and see if she is able to come off the ventilator and eventually to a nasal cannula versus possible terminal extubation in few days which goes in hand with her goals of care which were to not live on life support. Patient is agreeable for tracheostomy and PEG tube placement. Discharge planning: Post tracheostomy and PEG tube we will plan to come down on sedation and possible discharge to LTAC. Case management working on same. Plan for today: Restart tube feeds. Cut down on sedation. Pressure support. Weaning oxygen as possible. We will start pain medication and psych medication slowly. Attestations Medical Necessity Statement*: Requires further hospitalization for management of ARDS secondary COVID-19 pneumonia, superimposed fungal pneumonia, PE, post tracheostomy while patient is weaned off ventilator. Critical Care Time: The high probability of a clinically significant, sudden or life threatening deterioration of the patient's [pulmonary, cardiac, sedation] system(s) required my full and direct attention, intervention and personal management. The critical care time is as shown. 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
[2021-06-03] MEDS: cefepime 1,000 MG in sodium chloride 0.9% (plus) 50 ML 100 MG IV (16:51)
[2021-06-03] MEDS: vancomycin 1,000 MG in sodium chloride 0.9% 250 ML 250 MG IV (16:56)
[2021-06-03] MEDS: oxybutynin 5 mg Tablet PO (17:15)
--- NOTE | 2021-06-03 18:43 | PC.NURSE ---
Patient refused to let this nurse clean stool from dione area. Patient was educated on infection risk but patient continued to refuse. maintenance supervisor 2nd shift nurse aware of situation.
[2021-06-03] MEDS: dexmedeTOMIDine 0.9 % NaCL 400 MCG/100 ML PREMIX 15.16 MCG IV (18:49)
[2021-06-03] MEDS: ondansetron 2 mg/ML SDV 2 mL 4 MG IVP (19:18)
[2021-06-03] MEDS: enoxaparin 80 mg/0.8 mL Syringe SUBCUT (20:22)
[2021-06-03] MEDS: fentaNYL 50 mcg/mL INJ 2mL 25 MCG IVP (22:30)
[2021-06-04] VITALS (69 sets, daily range): BP systolic 96–137; BP diastolic 66–104; PULSE 60–106; RESP 16–121; TEMP -13.1–37.1; O2SAT 85–100; BMI 26.2
[2021-06-04] MEDS: fentaNYL 50 mcg/mL INJ 2mL 25 MCG IVP ×3 (00:43→09:39)
[2021-06-04] MEDS: dexmedeTOMIDine 0.9 % NaCL 400 MCG/100 ML PREMIX 15.16 MCG IV ×2 (00:45→07:52)
[2021-06-04] MEDS: ipratropium-albuterol 3 mL Neb INHALATION ×7 (00:53→23:28)
[2021-06-04] MEDS: haloperidol inj 5 mg/mL INJ 1 mL IVP (02:37)
[2021-06-04] MEDS: HYDROmorphone 1 mg/mL INJ 1 mL 0.5 MG IVP ×4 (05:13→23:31)
[2021-06-04 05:25] LABS: Basophils % 0.2 %; Eosinophils # 0.3 10^3/uL (0.0-0.8); Eosinophils % 6.6 %; Hematocrit 31.9 % (37.0-47.0); Hemoglobin 9.6 g/dL (11.5-15.3); Lymphocytes % 19.6 %; Mean Corpuscular HGB Conc 30.1 g/dL (30.0-36.0); Mean Corpuscular Hemoglobin 24.1 pg (28.0-34.0); Mean Corpuscular Volume 80.2 fl (81-99); Mean Platelet Volume 10.5 fL (7.4-10.4); Monocytes # 0.4 10^3/uL (0.2-0.9); Monocytes % 8.8 %; Neutrophils % 64.2 %; Nucleated Red Blood Cells % 0 %; Platelet Count 146 10^3/cmm (130-400); Red Blood Count 3.98 10^6/uL (4.1-5.3); Red Cell Distribution Width 19.1 % (12.1-15.1)
[2021-06-04 05:51] LABS: Alanine Aminotransferase 14 U/L (0-33); Albumin Level 3.5 g/dL (3.5-5.2); Alkaline Phosphatase 85 IU/L (35-105); Aspartate Amino Transferase 15 U/L (0-32); Blood Urea Nitrogen 13 mg/dL (6-20); Calcium 8.7 mg/dL (8.5-10.5); Carbon Dioxide 28 mmol/L (22-29); Chloride 102 mmol/L (98-107); Globulin 2.8 g/dL (1.3-4.6); Glomerular Filtration Rate 229.3 mL/min (90-130); Glucose 142 mg/dL (65-115); Osmolality Calculated 289 mOsm/kg (285-295); Sodium 138 mmol/L (136-145); Total Bilirubin 0.4 mg/dL (0.15-1.2); Total Protein 6.3 g/dL (6.6-8.7)
[2021-06-04 05:52] LABS: Anion Gap 11.6 (5-19)
[2021-06-04 05:53] LABS: Potassium 3.6 mmol/L (3.5-5.1)
[2021-06-04] MEDS: ondansetron 2 mg/ML SDV 2 mL 4 MG IVP ×2 (06:26→15:37)
[2021-06-04] MEDS: dexamethasone 4 mg/mL INJ 3 MG IVP (07:50)
[2021-06-04] MEDS: budesonide 0.5 mg/2 mL Neb INHALATION ×2 (07:58→19:46)
--- NOTE | 2021-06-04 08:46 | PC.NURSE ---
Dr Corbett called for morning update, to to Versed 2 mg and attempt new NG, larger bore (ely hannah) so pt can received her Gabapentin and Celexa .
[2021-06-04] MEDS: midazolam 1 mg/mL INJ 2 mL 2 MG IVP (09:14)
--- NOTE | 2021-06-04 09:20 | PC.NURSE ---
NG placed in right nostril. 14 gauge. Difficult placement due to pt thrashing her head. ( she did give permission prior to attempting). Auscultated placement, sounded distant. Will await for xray confirmation.
--- NOTE | 2021-06-04 09:41 | XRR_ITS ---
PROCEDURE INFORMATION: Exam: XR Chest Exam date and time: 06/04/2021 9:41 AM Age: 55 years old Clinical indication: Device placement; Ng tube; Additional info: Ng tube placement TECHNIQUE: Imaging protocol: XR of the chest. Views: 1 view. COMPARISON: CR XR chest 1V portable [id number] 06/03/2021 11:43 AM FINDINGS: Tubes, catheters and devices: NG tube tip in the region of the gastric fundus; consider advancing several cm for more secure placement. Tracheostomy cannula noted with tip approximately 4 cm cephalad to the emily. Unchanged right IJ central line and right upper extremity PICC with tips over the mid to distal SVC. Lungs: No significant interval change bilateral patchy interstitial and alveolar opacities, again left greater than right. Pleural spaces: No visible pleural effusion or pneumothorax. Heart/Mediastinum: Cardiac silhouette remains upper normal. Bones/joints: No acute bony abnormality is appreciated. XR/XR chest 1V portable [id number] IMPRESSION: 1. NG tube tip just beyond the GE junction; consider dancing several cm for more secure placement. 2. No significant interval change bilateral patchy interstitial and alveolar opacities again left greater than right. Differential includes edema and pneumonia.
[2021-06-04] MEDS: enoxaparin 80 mg/0.8 mL Syringe SUBCUT ×2 (10:29→20:31)
[2021-06-04] MEDS: pantoprazole 40 mg SDV IVP ×2 (10:29→20:31)
[2021-06-04] MEDS: levothyroxine 100 mcg SDV 37.5 MCG IVP (10:29)
--- NOTE | 2021-06-04 10:36 | PC.NURSE ---
Waiting on NG xray confirmation to administer tablets/pills and restart tube feeding.
--- NOTE | 2021-06-04 12:09 | PC.NUTR ---
Tube feeding recommendations: Trach on 06/02, PEG placement did not occur d/t hx of sha-en-y gastric bypass. NGT placed 06/03, MD stating to restart feeds per note, however not yet resumed. Nurse states will resume when possible today. Suggest starting Pulmocare at 20 ml/hr, increasing by 10 ml/hr q 8 hours as tolerated to goal rate of 50 ml/hr (no longer receiving propofol), continuing with 100 ml flushes q 4 hours. TF at goal with flushes to provide 1800 kcal, 76 g protein, and 1542 ml H2O. See full RD assessment for further details.
--- NOTE | 2021-06-04 13:19 | PC.NURSE ---
PEr Xray NG tip in gastric fusndus, suggested to be advamced several cm. NG advanced 4 cm.
--- NOTE | 2021-06-04 14:00 | PC.NURSE ---
Pt up to chair, PT at bedside. Pt bore her own weight well, she did start to panic. Reassurance and encouragement was provided.
--- NOTE | 2021-06-04 14:10 | PC.NURSE ---
Pt was incontinent of stool during transfer to chair where she abruptly sat down. Offered to help her clean up while she stood again pt refused.
[2021-06-04] MEDS: gabapentin 300 mg Capsule PO ×2 (14:15→20:31)
[2021-06-04] MEDS: folic acid 1 mg Tablet PO (14:15)
[2021-06-04] MEDS: citalopram 20 mg Tablet PO (14:15)
[2021-06-04] MEDS: zinc gluconate 50 mg Tablet PO (14:16)
[2021-06-04] MEDS: ascorbic acid 500 mg Tablet PO (14:16)
--- NOTE | 2021-06-04 14:20 | PC.NURSE ---
Addendum entered by Joana Chatman RN 06/04/21 14:44: Tube feeding also resumed at rate left off, 35ml/hr Original Note: Medication: Daily pills admin crush through NG, except senna-s and Miralax, those were held due to diarrhea. The other am pills that where scheduled BID held as it is closer to evening dose time now.
--- NOTE | 2021-06-04 15:24 | PM.PN ---
Subjective Subjective: Interval history: No acute events overnight. Yesterday patient remains on pressure support of 5:40 PM. Dobbhoff was placed yesterday through which feeding was started but overnight had clogged off. Today in morning NGT was placed, patient was made to sit in the chair and was placed back on pressure support. She denies any nausea, vomiting, headache. States pain is well controlled. Medications: Reviewed: Yes Vitals/I&O/Wt Last Vital Signs Temp 98.8 F 06/04/21 08:00 Pulse 100 06/04/21 15:22 Resp 22 H 06/04/21 15:22 BP 130/74 06/04/21 12:00 Pulse Ox 97 06/04/21 15:22 06/04/21 06/04/21 06/04/21 06:59 14:59 22:59 Intake Total 100 / 750 156.832 / 156.832 Output Total 200 / 200 Balance -100 / 550 156.832 / 156.832 Weight last 48 hrs Weight 80.422 kg Weight 80.422 kg Physical Exam Narrative: EXAM NARRATIVE: General: No acute distress, AO x3, mildly sedated, GCS: E3 M4 VT, tracheostomy 6 present HEENT: PERRLA, pupils bilaterally equal and reactive Chest: Bilateral coarse crackles present all over the lung olmos, left more than right, equal good air entry bilaterally CVS: S1-S2 regular, no murmurs, no tachycardia, no gallops, no rubs Abdomen: Soft, nontender, no organomegaly, bowel sounds present Neuro: No focal deficits, no facial deformity, AO x3, power 3/5 in all limbs Urinary Catheter Management^: Lpoez: Cath Placed During This Visit: yes Reason for Continuing Indwelling Catheter: Accurate Measurement of Urinary Output in Critically Ill Patients Urinary Catheter Date of Insertion: 05/15/21 Urinary Catheter Time of Insertion: 11:56 Data : 06/04/21 05:20 06/04/21 05:20 A&P Assessment and plan (1) Acute respiratory distress syndrome (ARDS) due to COVID-19 virus: Status: Acute (2) Fungal pneumonia: Status: Acute (3) Pulmonary embolism: Status: Acute (4) Pneumothorax: Status: Acute (5) Methadone dependence: Status: Chronic (6) Hypothyroidism: Status: Chronic Qualifiers: Hypothyroidism type: acquired Qualified Code(s): E03.9 - Hypothyroidism, unspecified (7) Benign essential HTN: Status: Chronic (8) Tracheostomy in place: Status: Acute Additional A&P Information #ARDS secondary to COVID-19 pneumonia, superadded fungal pneumonia and pulmonary embolism: #Covid 19 Pneumonia: Severe disease. Ventilator dependent. Finished course of treatment with remdesivir. Post Actemra on May 20. Prolonged dexamethasone course. Decreased to 3 mg IV daily for 5 days. Post tracheostomy June 02. Surgery consulted for PEG tube. Little difficult with PEG tube given her history of gastric sleeve surgery. We will continue to follow surgical recommendations. For now the plan is to monitor with swallow evaluation once tracheostomy insertion site is healed. Off isolation June 03. Continue to wean Precedex as possible. Continue with fentanyl 25 mcg every 2 hours as needed, Dilaudid 0.5 mg every 6 hours as needed. Continue with home dose of citalopram and amitriptyline. Continue with home dose of clonazepam.. Given ARDS we will try to keep patient as negative as possible. Hold off on Lasix for today. Strict input output charting, daily weights. Net 10 L negative since admission. Monitor renal functions. Echocardiogram done earlier in the admission shows an EF of 60%, RVSP of 23, trace MR. MRSA negative. Last dose of cefepime on June 03. Patient has already finished a course of antibiotics with vancomycin and Levaquin. Sputum culture growing yeast. Continue with caspofungin. Day 05/03 today. CTA concerning for pulmonary embolism. Started on full dose Lovenox. We will switch to full dose Eliquis 5 mg twice daily after patient has received Lovenox for 7 days and advance permanent plan is made for nutrition supplementation. Will monitor for anemia or GI bleed. Elevated LFT: Resolved. Chronic Methadone Dependence --Takes 75 mg of methadone daily at home. Hold for now. --Continue fentanyl pushes as above. Hypothyroidism --TSH 1.32, continue Levothyroxine. History of Vance-en-y gastric bypass --Complicates history, continue supplements Tube feedings: Rate increased to 50 cc/h. Full dose Lovenox will help with DVT prophylaxis. Protonix for PUD prophylaxis. Bowel regimen Full code. Multiple goals of care discussion done with patient's daughter over the phone and in person and with patient at bedside. We discussed that patient in past had wished not to live on life support. We also discussed unfortunately patient is requiring high oxygen supplementation and is currently ventilator dependent for last 15 days. Also discussed fungal pneumonia and new diagnosis of pulmonary embolism. All the questions were answered. For now continue the current treatment for next 3 to 4 days. We discussed that risk for there are 2 option. One option would be to go ahead and do tracheostomy which would mean that she would be on a ventilator for couple of months while we give her lungs some chance to heal and see if she is able to come off the ventilator and eventually to a nasal cannula versus possible terminal extubation in few days which goes in hand with her goals of care which were to not live on life support. Patient is agreeable for tracheostomy and PEG tube placement. Discharge planning: Post tracheostomy and PEG tube we will plan to come down on sedation and possible discharge to LTAC. Case management working on same. Plan for today: Continue with pressure support for as long as possible. Wean down further and try to place on heated high flow out of bed to chair for as long as possible. Continue to turn sedation as much as possible. Restart on home psych medications. Attestations Medical Necessity Statement*: Requires further hospitalization for management of ventilator dependent ARDS secondary COVID-19 pneumonia, fungal pneumonia while safe discharge planning is sought. Critical Care Time: The high probability of a clinically significant, sudden or life threatening deterioration of the patient's [cardiac, pulmonary] system(s) required my full and direct attention, intervention and personal management. The critical care time is as shown. This time is in addition to time spent performing any reported procedures but includes the following: [x] Data and vital sign review and interpretation [x] Patient assessment, examination and intervention [x] Documentation [x] Medication orders and management Critical Care Time (min): 80 Procedures Arterial Line Size (Gauge): 20 Coding Level of Care Code Acute Registered Nurse Hh Case Manager for g Fwd Diagnoses Acute respiratory distress syndrome (ARDS) due to COVID-19 virus U07.1; J80 Fungal pneumonia B49; J17 Pulmonary embolism I26.99 Pneumothorax J93.9 Methadone dependence F11.20 Hypothyroidism E03.9 Hypothyroidism type: acquired Benign essential HTN I10 Tr[address] Z93.0
[2021-06-04] MEDS: dexmedeTOMIDine 0.9 % NaCL 400 MCG/100 ML PREMIX 8.66 MCG IV (15:37)
--- NOTE | 2021-06-04 17:15 | PC.NURSE ---
Pt assisted back to bed, Bathing and linen change provided.
--- NOTE | 2021-06-04 17:37 | PC.NURSE ---
Consent received from Pt to speak with Mohsen Tomlin, her brother. Update given.
[2021-06-04] MEDS: oxybutynin 5 mg Tablet PO (17:54)
--- NOTE | 2021-06-04 18:00 | PC.NURSE ---
Central line right IJ removed after removing securing stitches. Cath tip intact. No redness or swelling noted at this site. Pt toelrated well. Gauze and bioclusive dressing applied.
--- NOTE | 2021-06-04 19:32 | PC.NURSE ---
Shift Note Frequent safety and comfort rounds continue. Orders and/or nursing care completed as indicated. Patient monitored for response to intervention and treatment(s). Education provided includes central line care and removal, out of bed to improve strength, tube feeding Patient and/or bilingual sales representative verbalized understanding to these topics and continuing care. . Will continue to monitor.
[2021-06-04] MEDS: amitriptyline 25 mg Tablet 100 MG PO (20:31)
[2021-06-04 20:39] LABS: Glucose Point of Care 109 mg/dL (70-110)
[2021-06-05] VITALS (61 sets, daily range): BP systolic 78–148; BP diastolic 51–99; PULSE 56–99; RESP 18–38; TEMP 36.6–36.9; O2SAT 82–98; BMI 26.2
[2021-06-05] MEDS: dexmedeTOMIDine 0.9 % NaCL 400 MCG/100 ML PREMIX 8.66 MCG IV (02:32)
[2021-06-05] MEDS: ipratropium-albuterol 3 mL Neb INHALATION ×6 (03:27→23:01)
[2021-06-05 04:08] LABS: Basophils % 0.2 %; Eosinophils # 0.5 10^3/uL (0.0-0.8); Eosinophils % 9.1 %; Hematocrit 28.3 % (37.0-47.0); Hemoglobin 8.5 g/dL (11.5-15.3); Lymphocytes # 1.7 10^3/uL (0.8-4.8); Lymphocytes % 29.3 %; Mean Corpuscular Hemoglobin 24.4 pg (28.0-34.0); Mean Corpuscular Volume 81.3 fl (81-99); Monocytes # 0.5 10^3/uL (0.2-0.9); Monocytes % 8.9 %; Neutrophils # 2.92 10^3/uL (1.8-7.7); Neutrophils % 51.8 %; Nucleated Red Blood Cells % 0 %; Platelet Count 127 10^3/cmm (130-400); Red Blood Count 3.48 10^6/uL (4.1-5.3); White Blood Count 5.6 10^3/uL (4.0-10.0)
[2021-06-05 04:35] LABS: Alanine Aminotransferase 12 U/L (0-33); Albumin Level 3.3 g/dL (3.5-5.2); Alkaline Phosphatase 78 IU/L (35-105); Anion Gap 12.3 (5-19); Aspartate Amino Transferase 12 U/L (0-32); Blood Urea Nitrogen 10 mg/dL (6-20); Calcium 8.5 mg/dL (8.5-10.5); Carbon Dioxide 27 mmol/L (22-29); Chloride 103 mmol/L (98-107); Glomerular Filtration Rate 229.3 mL/min (90-130); Glucose 128 mg/dL (65-115); Osmolality Calculated 289 mOsm/kg (285-295); Potassium 3.3 mmol/L (3.5-5.1); Sodium 139 mmol/L (136-145); Total Bilirubin 0.3 mg/dL (0.15-1.2); Total Protein 5.3 g/dL (6.6-8.7)
[2021-06-05] MEDS: HYDROmorphone 1 mg/mL INJ 1 mL 0.5 MG IVP ×4 (06:00→23:43)
[2021-06-05] MEDS: budesonide 0.5 mg/2 mL Neb INHALATION ×2 (07:37→19:53)
[2021-06-05] MEDS: zinc gluconate 50 mg Tablet PO (09:12)
[2021-06-05] MEDS: gabapentin 300 mg Capsule PO (09:13)
[2021-06-05] MEDS: enoxaparin 80 mg/0.8 mL Syringe SUBCUT ×2 (09:13→20:40)
[2021-06-05] MEDS: citalopram 20 mg Tablet PO (09:13)
[2021-06-05] MEDS: folic acid 1 mg Tablet PO (09:13)
[2021-06-05] MEDS: ascorbic acid 500 mg Tablet PO (09:13)
[2021-06-05] MEDS: oxybutynin 5 mg Tablet PO ×2 (09:13→17:57)
[2021-06-05] MEDS: levothyroxine 100 mcg SDV 37.5 MCG IVP (09:14)
[2021-06-05] MEDS: pantoprazole 40 mg SDV IVP ×2 (09:15→20:40)
--- NOTE | 2021-06-05 09:21 | PC.SOCIAL ---
IMM Not Updated Pg. 2 of IMM not updated; patient not anticipated to discharge within the next 48hours. Remains intubated at this time.
[2021-06-05] MEDS: acetaminophen 325 mg Tablet 650 MG PO (09:30)
--- NOTE | 2021-06-05 10:36 | XRR_ITS ---
PROCEDURE INFORMATION: Exam: XR Abdomen Exam date and time: 06/05/2021 10:36 AM Age: 55 years old Clinical indication: Abdominal pain; Additional info: Abd pain TECHNIQUE: Imaging protocol: XR of the abdomen. Views: 3 or more views. COMPARISON: CT abdomen pelvis w con* [id number] 11/18/2020 12:57 PM FINDINGS: Tubes, catheters and devices: There is a tracheostomy in good position, orogastric tube with tip in the stomach and a right subclavian central line with tip in the superior vena cava. Heart/Mediastinum: The heart is enlarged. Lungs: Multifocal bilateral patchy airspace opacities are noted in the lungs greatest in the right upper lobe and left lower lobe concerning for pneumonic infiltrates. Gastrointestinal tract: There are dilated loops of small bowel wall left upper and mid abdomen measuring up to 4.2 cm concerning for partial small bowel obstruction. There are also collapsed loops of small bowel in the right abdomen. A small amount of air is noted in the colon. Intraperitoneal space: Postoperative clips are noted in the left upper abdomen. Bones/joints: Unremarkable for age. XR/XR acute abdomen series [id number] IMPRESSION: 1. Dilated loops of proximal small bowel in the left abdomen concerning for partial small bowel obstruction. 2. Multifocal bilateral patchy airspace opacities are noted in the lungs greatest in the right upper lobe and left lower lobe concerning for pneumonic infiltrates.
[2021-06-05] MEDS: CLONazepam 0.5 mg Tablet 1 MG PO (10:43)
--- NOTE | 2021-06-05 11:00 | PC.NURSE ---
Pt pulled off her oxygen, sats decreased. Pt stated it was it was too warm and she was done. Repeated attempts to reconnect and/or persuade her to put it back on met with refusal. Pt tearful said she was done, she did not care if she . She was ready to see God. Dr Corbett notified. He came to bedside, Rt at bedside. Discussed with pt her progress, things that are being done to help make her more comfortable, and patience. Therapeutic conversation done. Pt voiced her frustrations then allowed Oxygen to be reconnected. Pain meds given. Pt to rest the get out of bed later today per pt.
[2021-06-05] MEDS: fentaNYL 50 mcg/mL INJ 2mL 25 MCG IVP ×3 (11:18→20:40)
[2021-06-05] MEDS: gabapentin 300 mg Capsule 600 MG PO ×3 (11:36→20:39)
--- NOTE | 2021-06-05 13:50 | PC.NURSE ---
Pt indicted she was ready to get out of bed to chair. Attempt made, she started to breath harder through her mouth and then sat back down on the bed and put herself back in to bed completely.
[2021-06-05] MEDS: ropinirole 0.25 mg Tablet PO ×2 (14:27→20:40)
--- NOTE | 2021-06-05 16:36 | PC.NURSE ---
Pt contiues to refuse to get out of bed to chair . Multiple offers/request to do so this afternoon.
--- NOTE | 2021-06-05 16:37 | PM.PN ---
Subjective Subjective: Interval history: No complaints overnight. Patient has remained hemodynamically stable. Yesterday was placed on heated high flow and tolerated back to 5 PM. Overnight has remained on CMV mode. Today morning when seen was on MV mode with pressure support of 10 being transitioned over to heated high flow. She did have an episode of emotional distress/agitation when she took off her heated high flow and her saturations dropped to high 70s to low 80s. Patient has been complaining of pain in her legs. Denies any nausea vomiting, headache. We discussed that tomorrow we will have speech and swallow evaluation and if she tolerates it well we can advance her diet and put her on her home dose of methadone. Medications: Reviewed: Yes Vitals/I&O/Wt Last Vital Signs Temp 98 F 06/05/21 14:18 Pulse 86 06/05/21 16:00 Resp 24 H 06/05/21 15:45 BP 138/99 06/05/21 16:00 Pulse Ox 95 06/05/21 16:00 06/05/21 06/05/21 06/05/21 06:59 14:59 22:59 Intake Total 720.289 / 1482.928 99.711 / 99.711 250 / 349.711 Output Total 425 / 675 Balance 295.289 / 807.928 99.711 / 99.711 250 / 349.711 Weight last 48 hrs Weight 80.422 kg Weight 80.422 kg Physical Exam Narrative: EXAM NARRATIVE: General: No acute distress, AO x3, mildly sedated, GCS: E3 M4 VT, tracheostomy 6 present HEENT: PERRLA, pupils bilaterally equal and reactive Chest: Bilateral coarse crackles present all over the lung olmos, left more than right, equal good air entry bilaterally CVS: S1-S2 regular, no murmurs, no tachycardia, no gallops, no rubs Abdomen: Soft, nontender, no organomegaly, bowel sounds present Neuro: No focal deficits, no facial deformity, AO x3, power 3/5 in all limbs Urinary Catheter Management^: Lopez: Cath Placed During This Visit: yes Reason for Continuing Indwelling Catheter: Accurate Measurement of Urinary Output in Critically Ill Patients Urinary Catheter Date of Insertion: 05/15/21 Urinary Catheter Time of Insertion: 11:56 Data : 06/05/21 03:38 06/05/21 03:38 A&P Assessment and plan (1) Acute respiratory distress syndrome (ARDS) due to COVID-19 virus: Status: Acute (2) Fungal pneumonia: Status: Acute (3) Pulmonary embolism: Status: Acute (4) Pneumothorax: Status: Acute (5) Methadone dependence: Status: Chronic (6) Hypothyroidism: Status: Chronic Qualifiers: Hypothyroidism type: acquired Qualified Code(s): E03.9 - Hypothyroidism, unspecified (7) Benign essential HTN: Status: Chronic (8) Tracheostomy in place: Status: Acute Additional A&P Information #ARDS secondary to COVID-19 pneumonia, superadded fungal pneumonia and pulmonary embolism: #Covid 19 Pneumonia: Severe disease. Ventilator dependent. Finished course of treatment with remdesivir. Post Actemra on May 20. Prolonged dexamethasone course. Decreased to 3 mg IV daily for 5 days. Post tracheostomy June 02. Surgery consulted for PEG tube. Little difficult with PEG tube given her history of gastric sleeve surgery. We will continue to follow surgical recommendations. For now the plan is to monitor with swallow evaluation once tracheostomy insertion site is healed. Off isolation June 03. Continue to wean Precedex as possible. Continue with fentanyl 25 mcg every 2 hours as needed, Dilaudid 0.5 mg every 6 hours as needed. Continue with home dose of citalopram and amitriptyline. Continue with home dose of clonazepam.. Given ARDS we will try to keep patient as negative as possible. Hold off on Lasix for today. Strict input output charting, daily weights. Net 10 L negative since admission. Monitor renal functions. Echocardiogram done earlier in the admission shows an EF of 60%, RVSP of 23, trace MR. MRSA negative. Last dose of cefepime on June 03. Patient has already finished a course of antibiotics with vancomycin and Levaquin. Sputum culture growing yeast. Continue with caspofungin. Day 06/03 today. CTA concerning for pulmonary embolism. Started on full dose Lovenox. We will switch to full dose Eliquis 5 mg twice daily after patient has received Lovenox for 7 days and advance permanent plan is made for nutrition supplementation. Will monitor for anemia or GI bleed. Anemia: Hemoglobin down to 8.5 today. Most likely because of severe malnutrition along with chronic sickness. Check iron panel, vitamin B12, folate, reticulocyte count, stool for occult blood. Transfuse 1 unit of PRBC. Protonix 40 mg IV twice daily. Abdominal series to rule out any perforation given NG tube placement yesterday. X-ray shows NG tube in good place. Peripheral neuropathy: Chronic. Gabapentin 600 3 times daily. Start on Requip 0.25 3 times daily. Continue with other chronic psych medications including Celexa 20 mg, Klonopin 1 mg twice daily as needed, amitriptyline. Start patient on trazodone overnight. Chronic Methadone Dependence --Takes 75 mg of methadone daily at home. Hold for now. --Continue fentanyl pushes as above. Hypothyroidism --TSH 1.32, continue Levothyroxine. History of Vance-en-y gastric bypass --Complicates history, continue supplements Tube feedings: Rate increased to 50 cc/h. Full dose Lovenox will help with DVT prophylaxis. Protonix for PUD prophylaxis. Bowel regimen Full code. Multiple goals of care discussion done with patient's daughter over the phone and in person and with patient at bedside. We discussed that patient in past had wished not to live on life support. We also discussed unfortunately patient is requiring high oxygen supplementation and is currently ventilator dependent for last 15 days. Also discussed fungal pneumonia and new diagnosis of pulmonary embolism. All the questions were answered. For now continue the current treatment for next 3 to 4 days. We discussed that risk for there are 2 option. One option would be to go ahead and do tracheostomy which would mean that she would be on a ventilator for couple of months while we give her lungs some chance to heal and see if she is able to come off the ventilator and eventually to a nasal cannula versus possible terminal extubation in few days which goes in hand with her goals of care which were to not live on life support. Patient is agreeable for tracheostomy and PEG tube placement. Discharge planning: Post tracheostomy and PEG tube we will plan to come down on sedation and possible discharge to LTAC. Case management working on same. Plan for today: Keep on heated high flow as long as possible. Out of bed to chair. Continue with multiple psych medications. Add trazodone. Increase dose of gabapentin. Add Requip. Await swallow evaluation tomorrow. Abdominal series. Attestations Medical Necessity Statement*: For management of hypoxia and to COVID-19 pneumonia, fungal pneumonia, ventilator dependent, post tracheostomy Critical Care Time: The high probability of a clinically significant, sudden or life threatening deterioration of the patient's [pulmonary, psychiatric, neurological] system(s) required my full and direct attention, intervention and personal management. The critical care time is as shown. This time is in addition to time spent performing any reported procedures but includes the following: [x] Data and vital sign review and interpretation [x] Patient assessment, examination and intervention [x] Documentation [x] Medication orders and management Critical Care Time (min): 90 Procedures Arterial Line Size (Gauge): 20 Coding Level of Care Code Acute Administrator Social Welfare for g Fwd Diagnoses Acute respiratory distress syndrome (ARDS) due to COVID-19 virus U07.1; J80 Fungal pneumonia B49; J17 Pulmonary embolism I26.99 Pneumothorax J93.9 Methadone dependence F11.20 Hypothyroidism E03.9 Hypothyroidism type: acquired Benign essential HTN I10 Tracheostomy [address] Z93.0
--- NOTE | 2021-06-05 18:00 | PC.NURSE ---
PICC dressing change completed. [place] Contour shield dressing applied. Heplocks and statlock also changed. Pt tolerated well..
--- NOTE | 2021-06-05 18:52 | PC.NURSE ---
Shift Note Frequent safety and comfort rounds continue. Orders and/or nursing care completed as indicated. Patient monitored for response to intervention and treatment(s). Education provided includes continued plan of care, swallow eval, tube feeding, heated high flow. Patient verbalized understanding of care discussed. Will continue to monitor.
[2021-06-05] MEDS: amitriptyline 25 mg Tablet 100 MG PO (20:39)
[2021-06-05] MEDS: trazodone 150 mg Tablet 75 MG PO (20:39)
[2021-06-05] MEDS: dexmedeTOMIDine 0.9 % NaCL 400 MCG/100 ML PREMIX IV (23:49)
[2021-06-06] VITALS (43 sets, daily range): BP systolic 85–128; BP diastolic 52–80; PULSE 57–102; RESP 18–38; TEMP 36.6–37.2; O2SAT 87–98
[2021-06-06] MEDS: ipratropium-albuterol 3 mL Neb INHALATION ×6 (03:19→23:26)
[2021-06-06 05:03] LABS: Basophils % 0.2 %; Eosinophils # 0.6 10^3/uL (0.0-0.8); Hematocrit 32.7 % (37.0-47.0); Hemoglobin 9.5 g/dL (11.5-15.3); Lymphocytes # 1.7 10^3/uL (0.8-4.8); Lymphocytes % 33.1 %; Mean Corpuscular HGB Conc 29.1 g/dL (30.0-36.0); Mean Corpuscular Hemoglobin 23.6 pg (28.0-34.0); Mean Corpuscular Volume 81.1 fl (81-99); Mean Platelet Volume 10.1 fL (7.4-10.4); Monocytes # 0.5 10^3/uL (0.2-0.9); Monocytes % 8.6 %; Neutrophils # 2.43 10^3/uL (1.8-7.7); Neutrophils % 46.1 %; Nucleated Red Blood Cells % 0 %; Platelet Count 129 10^3/cmm (130-400); Red Blood Count 4.03 10^6/uL (4.1-5.3); Red Cell Distribution Width 19.9 % (12.1-15.1); White Blood Count 5.3 10^3/uL (4.0-10.0)
[2021-06-06 05:29] LABS: Alanine Aminotransferase 14 U/L (0-33); Albumin Level 3.3 g/dL (3.5-5.2); Alkaline Phosphatase 78 IU/L (35-105); Anion Gap 12.3 (5-19); Aspartate Amino Transferase 14 U/L (0-32); Blood Urea Nitrogen 10 mg/dL (6-20); Calcium 8.7 mg/dL (8.5-10.5); Carbon Dioxide 28 mmol/L (22-29); Chloride 106 mmol/L (98-107); Globulin 2.3 g/dL (1.3-4.6); Glomerular Filtration Rate 229.3 mL/min (90-130); Glucose 120 mg/dL (65-115); Osmolality Calculated 296 mOsm/kg (285-295); Potassium 3.3 mmol/L (3.5-5.1); Sodium 143 mmol/L (136-145); Total Bilirubin 0.6 mg/dL (0.15-1.2); Total Protein 5.6 g/dL (6.6-8.7)
[2021-06-06] MEDS: HYDROmorphone 1 mg/mL INJ 1 mL 0.5 MG IVP ×4 (06:26→23:40)
[2021-06-06] MEDS: budesonide 0.5 mg/2 mL Neb INHALATION ×2 (07:52→20:15)
--- NOTE | 2021-06-06 08:41 | PC.CHAP ---
Pastoral Care Encounter/Spiritual Assessment Type of Contact [] Declined player development executive visit [] Patient/Family/Request visit [] Outpatient visit [] Follow-up visit [] Physician referral [] Code/Alert [x] Routine visit [] Staff referral [] Actively dying [] Patient sleeping [] Family support [] [] Out of room [] Palliative care [] [x] Receiving care in room [] Pre-surgical visit [] Trauma [] Long length of stay [x] ICU visit [] Other: Relational/Emotional Strength [] Patient feels connected with others/family/visitors/staff [] Distress [] Loneliness/isolation [] Abandonment Spirituality of Patient [] Person of Ekta [] Attends Latter Day of their Ek[place] [] Believes in Prayer [] Reads Bible or Amish materials [] There are Spiritual issues to be addressed Investment Sales Assistant Interventions [x] Prayer [x] Active listening [x] Non-anxious presence [x] Spiritual/emotional support [] Crisis/trauma care [] Spiritual counseling [] Bereavement support [] Provided bereavement packet [] Provided Bible/devotional materials [] Provided toy/stuffed animal, coloring book to patient or family member [] Provided Communion [] Anointing/[place] [] Salvation [x] Completed spiritual assessment [] Other: Impact on Illness or Injury [] Angry [] Fearful [] Anxious [] Often cries [] Exhaustion [] Unable to work [] Unable to attend lutheran [] Unable to walk/stand [] Unable to read [] Unable to drive [] Unable to eat/drink [] Unable to sleep [] Unable to be with family [] Patient intubated [] Other: Summary patients coloring better today... feeling somewhat stronger.... Time spent with patient
--- NOTE | 2021-06-06 09:00 | PM.PN ---
Subjective Subjective: Interval history: States this morning she is doing all right. Denies pain or discomfort. Requests not to have reintubation. Would be okay with receiving chest compressions in case of cardiac arrest, but in case of respiratory arrest would not want to be reintubated, confirming this is the case even in case of tracheostomy malfunction. Vitals/I&O/Wt Last Vital Signs Temp 98 F 06/06/21 08:00 Pulse 58 L 06/06/21 08:00 Resp 18 06/06/21 08:00 BP 97/52 06/06/21 08:00 Pulse Ox 92 06/06/21 08:00 06/05/21 06/06/21 06/06/21 22:59 06:59 14:59 Intake Total 990 / 1089.711 6.572 / 1096.283 37.375 / 37.375 Output Total 900 / 900 900 / 1800 Balance 90 / 189.711 -893.428 / -703.717 37.375 / 37.375 Weight last 48 hrs Weight 82.157 kg Weight 80.422 kg Physical Exam Const: COMMON NORMALS: no acute distress and patient oriented x3 HENMT: COMMON NORMALS: oropharynx normal OTHER: MV attached to trach Neck/C-Spine: COMMON NORMALS: no JVD Resp: COMMON NORMALS: normal respiratory effort AUSCULTATION: diminished lung sounds Cardio: COMMON NORMALS: no JVD, regular rhythm, S1 normal heart sound present, S2 normal heart sound present and No murmurs present (Cardio) RHYTHM: regular rhythm HEART SOUNDS: S1 normal heart sound present and S2 normal heart sound present GI: COMMON NORMALS: Normal to inspection, nondistended, normoactive bowel sounds present, Soft to palpation and non-tender PALPATION: Yes Soft to palpation Extremity: COMMON NORMALS: no joint enlargement and no pedal edema Neuro: COMMON NORMALS: patient oriented x3 and moves all extremities Skin: COMMON NORMALS: no rashes or lesions noted GENERAL SKIN EXAM: no rashes or lesions noted Urinary Catheter Management^: Lopez: Cath Placed During This Visit: yes Reason for Continuing Indwelling Catheter: Accurate Measurement of Urinary Output in Critically Ill Patients Urinary Catheter Date of Insertion: 05/15/21 Urinary Catheter Time of Insertion: 11:56 Data : 06/06/21 04:33 06/06/21 04:33 A&P Assessment and plan (1) Hypoxia: Hypoxia secondary to multiple etiologies including severe COVID-19, ARDS, diffuse alveolar damage, possible superimposed use pneumonia. PE. Wean down FiO2 support as tolerating. Continue trach care. MV support as needed. States she does not want to be reintubated. Continue anticoagulation. Continue to wean down sedation/wean off Precedex. Status: Acute (2) Acute respiratory distress syndrome (ARDS) due to COVID-19 virus: Status: Acute (3) Fungal pneumonia: Continue caspofungin. Status: Acute (4) Pulmonary embolism: Status: Acute (5) Pneumothorax: Status: Acute (6) Methadone dependence: Status: Chronic (7) Hypothyroidism: Status: Chronic Qualifiers: Hypothyroidism type: acquired Qualified Code(s): E03.9 - Hypothyroidism, unspecified (8) Benign essential HTN: Status: Chronic (9) Tracheostomy in place: Continue tracheostomy care. Oxygen support. Wean down as tolerating. Pending admission to LTAC. Swallow evaluation today. Status: Acute Additional A&P Information Anemia: Had good response to PRBC transfusion. After his next etiology, ANGELA, ACD. Most likely because of severe malnutrition along with chronic sickness. Vitamin B12, folate are okay. Reticulocyte count had not been collected pretransfusion. Stool for occult blood positive. Protonix 40 mg IV twice daily. Abdominal series without sign off perforation. Peripheral neuropathy: Continue gabapentin. Was started on Requip as well, although we will need to confirm whether his symptoms of restless legs. Chronic Methadone Dependence: Resume once tolerating oral intake History of Vance-en-y gastric bypass --Complicates history, continue supplements Tube feedings Full dose Lovenox will help with DVT prophylaxis. Protonix for PUD prophylaxis. Bowel regimen Full code. Discharge planning: Plans for possible discharge to LTAC. Attestations Medical Necessity Statement*: Continue admission for management of hypoxic respite failure, status post tracheostomy, following severe COVID-19, ARDS, superimposed fungal pneumonia, weaning off IV sedative drip. Procedures Arterial Line Size (Gauge): 20 Coding Level of Care Code Acute Construction Area Manager for [facility] Fwd Diagnoses Hypoxia R09.02 Acute respiratory distress syndrome (ARDS) due to COVID-19 virus U07.1; J80 Fungal pneumonia B49; J17 Pulmonary embolism I26.99 Pneumothorax J93.9 Methadone dependence F11.20 Hypothyroidism E03.9 Hypothyroidism type: acquired Benign essential HTN I10 Tracheostomy [address] Z93.0
[2021-06-06] MEDS: pantoprazole 40 mg SDV IVP ×2 (09:22→20:50)
[2021-06-06] MEDS: folic acid 1 mg Tablet PO (09:22)
[2021-06-06] MEDS: levothyroxine 100 mcg SDV 37.5 MCG IVP (09:22)
[2021-06-06] MEDS: gabapentin 300 mg Capsule 600 MG PO ×3 (09:22→20:49)
[2021-06-06] MEDS: oxybutynin 5 mg Tablet PO ×2 (09:22→17:43)
[2021-06-06] MEDS: enoxaparin 80 mg/0.8 mL Syringe SUBCUT ×2 (09:22→20:50)
[2021-06-06] MEDS: CLONazepam 0.5 mg Tablet 1 MG PO ×2 (09:22→22:09)
[2021-06-06] MEDS: ropinirole 0.25 mg Tablet PO ×3 (09:22→20:49)
[2021-06-06] MEDS: citalopram 20 mg Tablet PO (09:22)
[2021-06-06] MEDS: ascorbic acid 500 mg Tablet PO (09:22)
[2021-06-06] MEDS: zinc gluconate 50 mg Tablet PO (09:22)
[2021-06-06] MEDS: polyethylene glycol 3350 Pkt 17 gm PO (09:23)
[2021-06-06] MEDS: haloperidol inj 5 mg/mL INJ 1 mL IVP ×2 (10:46→23:44)
--- NOTE | 2021-06-06 11:36 | PC.OT ---
OT TREATMENT ATTEMPTED THIS A.M. PATIENT HAD JUST RETURNED TO BED WITH P.T. DOES NOT WISH TO PERFORM OT TREATMENT AT THIS TIME. REQUESTING PAIN MEDS.
--- NOTE | 2021-06-06 13:14 | PC.NUTR ---
Tube feeding recommendation: MD notes indicating TF at 50 ml/hr on 06/04 and 06/05 but was never ordered per chart. TF has been running at 35 ml/hr since 06/04. Continue to recommend increasing to goal of 50 ml/hr with 100 ml H2O flushes q4 to provide 1800 kcal, 76 g protein, and 1542 ml H2O. If po intake begins to improve, can gradually decrease TF rate, however per HYDRAULIC HAMMER OPERATOR, this is not anticipated at this time. See full RD assessment for further details.
--- NOTE | 2021-06-06 14:58 | PC.NUTR ---
Nutrition note: Received verbal order from Dr. Steiner to increase TF rate to 45 ml/hr at this time. See full RD assessment for further details.
--- NOTE | 2021-06-06 19:38 | PC.NURSE ---
Shift Note: Pt weaned off precedex again this am, again this am she had a headache , today's headache not as harsh as yesterdays. SHe said she was willing to get out of bed this morning. As the attempt was being mad she became frustrated, aggitated and refused. Haldol was administered. After extensive encouragement and coaxing she did go to chair. Swallow eval completed. Then she attempted to get back in the stripped bed by herself. Pt and OT made bed and assisted her back to bed. She stated she wanted to go to [facility] again today. Dr Steiner notified of her frustration, and depression. Daughter Sheeba called and given update and notified of her mother's behavior. She came in to visit. Pt's demeanor and attitude much improved and positive afterwards. Attempt to get out of bed to BS in the afternoon, her breathing through the trach sounds rough and she stated she was scared, refused to continued and climbed back into bed. Pericare and linen change provided for incontinence of bowels. She has not needed the PRN Fentanyl today. Urine output less this shift, 425. Tube feeding increased to 45ml/hr as ordered. Frequent safety and comfort rounds continue. Orders and/or nursing care completed as indicated. Patient monitored for response to intervention and treatment(s). Education provided includes anxiety and depression, celexa, methadone use,. Patient and/or shared services representative verbalized understanding. Will continue to monitor.
--- NOTE | 2021-06-06 20:45 | PC.NURSE ---
Right hand and forearm red, warm to touch with non pitting edema to hand. Left elbow is red and warm to touch with no edema. Area outlined.
[2021-06-06] MEDS: amitriptyline 25 mg Tablet 100 MG PO (20:48)
[2021-06-06] MEDS: trazodone 150 mg Tablet 75 MG PO (20:49)
--- NOTE | 2021-06-06 22:16 | PC.NURSE ---
Redness and edema to right hand and forearm improving. No edema noted, redness has greatly improved, with temperature symmetrical to left hand.
[2021-06-06] MEDS: fentaNYL 50 mcg/mL INJ 2mL 25 MCG IVP (22:36)
[2021-06-07] VITALS (39 sets, daily range): BP systolic 106–161; BP diastolic 62–127; PULSE 67–107; RESP 14–41; TEMP 36.7–36.8; O2SAT 85–98
[2021-06-07] MEDS: ipratropium-albuterol 3 mL Neb INHALATION ×6 (03:17→23:28)
[2021-06-07] MEDS: acetaminophen 325 mg Tablet 650 MG PO (03:44)
[2021-06-07] MEDS: HYDROmorphone 1 mg/mL INJ 1 mL 0.5 MG IVP ×2 (05:38→11:05)
[2021-06-07 06:03] LABS: Basophils % 0.4 %; Eosinophils # 0.6 10^3/uL (0.0-0.8); Eosinophils % 11.5 %; Hematocrit 33.4 % (37.0-47.0); Hemoglobin 9.9 g/dL (11.5-15.3); Lymphocytes # 1.7 10^3/uL (0.8-4.8); Lymphocytes % 32.7 %; Mean Corpuscular HGB Conc 29.6 g/dL (30.0-36.0); Mean Corpuscular Hemoglobin 23.9 pg (28.0-34.0); Mean Corpuscular Volume 80.7 fl (81-99); Mean Platelet Volume 10.2 fL (7.4-10.4); Monocytes # 0.5 10^3/uL (0.2-0.9); Monocytes % 9.3 %; Neutrophils % 44.7 %; Nucleated Red Blood Cells % 0.4 %; Platelet Count 144 10^3/cmm (130-400); Red Blood Count 4.14 10^6/uL (4.1-5.3); Red Cell Distribution Width 19.5 % (12.1-15.1); White Blood Count 5.1 10^3/uL (4.0-10.0)
[2021-06-07 06:23] LABS: Alanine Aminotransferase 17 U/L (0-33); Albumin Level 3.4 g/dL (3.5-5.2); Alkaline Phosphatase 83 IU/L (35-105); Anion Gap 9.4 (5-19); Aspartate Amino Transferase 15 U/L (0-32); Blood Urea Nitrogen 7 mg/dL (6-20); Calcium 8.8 mg/dL (8.5-10.5); Carbon Dioxide 32 mmol/L (22-29); Chloride 106 mmol/L (98-107); Globulin 2.4 g/dL (1.3-4.6); Glomerular Filtration Rate 366.1 mL/min (90-130); Glucose 104 mg/dL (65-115); Osmolality Calculated 296 mOsm/kg (285-295); Potassium 3.4 mmol/L (3.5-5.1); Sodium 144 mmol/L (136-145); Total Bilirubin 0.5 mg/dL (0.15-1.2); Total Protein 5.8 g/dL (6.6-8.7)
[2021-06-07] MEDS: CLONazepam 0.5 mg Tablet 1 MG PO (07:35)
[2021-06-07] MEDS: budesonide 0.5 mg/2 mL Neb INHALATION ×2 (08:00→19:57)
[2021-06-07] MEDS: folic acid 1 mg Tablet PO (08:43)
[2021-06-07] MEDS: enoxaparin 80 mg/0.8 mL Syringe SUBCUT ×2 (08:43→21:02)
[2021-06-07] MEDS: oxybutynin 5 mg Tablet PO ×2 (08:43→17:22)
[2021-06-07] MEDS: ascorbic acid 500 mg Tablet PO (08:43)
[2021-06-07] MEDS: citalopram 20 mg Tablet PO (08:43)
[2021-06-07] MEDS: potassium chloride oral liq 20 mEq/15 mL UDC PO (08:43)
[2021-06-07] MEDS: gabapentin 300 mg Capsule 600 MG PO ×3 (08:43→21:01)
[2021-06-07] MEDS: levothyroxine 100 mcg SDV 37.5 MCG IVP (08:43)
[2021-06-07] MEDS: sennosides-docusate Tablet 1 TAB PO (08:44)
[2021-06-07] MEDS: pantoprazole 40 mg SDV IVP ×2 (08:44→21:03)
[2021-06-07] MEDS: zinc gluconate 50 mg Tablet PO (08:44)
[2021-06-07] MEDS: ropinirole 0.25 mg Tablet PO ×3 (08:44→21:02)
--- NOTE | 2021-06-07 09:24 | XR_ITS ---
WS: [id number] XR chest 1V portable [id number] REASON FOR EXAM: hypoxia FINDINGS: Compared to previous examination of 06/04/2021, the right jugular central venous catheter is been henry laureano. Tracheostomy, right arm PICC line, and nasogastric tube remain in the same appropriate positions . No change in the bilateral infiltrates. XR/XR chest 1V portable [id number] IMPRESSION: Stable abnormal chest as above.
--- NOTE | 2021-06-07 09:28 | P.PN_ITS ---
Subjective Subjective: Interval history: Denies any change overnight. Denies pain or discomfort. She states she is fearful of trying some oral intake. Did work with speech and swallow therapy yesterday, and states will heed their advice and instructions. Vitals/I&O/Wt Last Vital Signs Temp 98.2 F 06/07/21 05:51 Pulse 107 H 06/07/21 09:00 Resp 31 H 06/07/21 09:00 BP 138/87 06/07/21 09:00 Pulse Ox 77 L 06/07/21 09:00 06/06/21 06/07/21 06/07/21 22:59 06:59 14:59 Intake Total 720 / 764.146 330 / 1094.146 Output Total 400 / 400 975 / 1375 Balance 320 / 364.146 -645 / -280.854 Weight last 48 hrs Weight 89.386 kg Weight 82.157 kg Physical Exam Const: COMMON NORMALS: no acute distress and patient oriented x3 HENMT: COMMON NORMALS: oropharynx normal OTHER: HHF attached to trach Neck/C-Spine: COMMON NORMALS: no JVD Resp: COMMON NORMALS: normal respiratory effort AUSCULTATION: diminished l chris sounds Cardio: COMMON NORMALS: no JVD, regular rhythm, S1 normal heart sound present, S2 normal heart sound present and No murmurs present (Cardio) RHYTHM: regular rhythm HEART SOUNDS: S1 normal heart sound present and S2 normal heart sound present GI: COMMON NORMALS: Normal to inspection, nondistended, normoactive bowel sounds present, Soft to palpation and non-tender PALPATION: Yes Soft to palpation Extremity: COMMON NORMALS: no joint enlargement and no pedal edema Neuro: COMMON NORMALS: patient oriented x3 and moves all extremities Skin: COMMON NORMALS: no rashes or lesions noted GENERAL SKIN EXAM: no rashes or lesions noted Urinary Catheter Management^: Lopez: Cath Placed During This Visit: yes Reason for Continuing Indwelling Catheter: Accurate Measurement of Urinary Output in Critically Ill Patients Urinary Catheter Date of Insertion: 05/15/21 Urinary Catheter Time of Insertion: 11:56 Data : 06/07/21 05:19 06/07/21 05:19 A&P Assessment and plan (1) Hypoxia: Some worsening of FiO2 requirement noted, going up to 75%. Does not feel any different. Repeat chest x-ray obtained, unchanged. Has had speech and swallow evaluation, but has not yet initiated any oral intake. Monitor for aspiration. Has completed treatment with caspofungin. No leukocytosis, afebrile. Mild tachycardia. No sign of sepsis. On therapeutic anticoagulation. Continue supportive care at this time. Breathing treatments. Trach care. Wean down oxygen as tolerated. Repeat chest x-ray in the morning. P.o. intake trial as per HUMAN RESOURCES OPERATIONS MANAGER recommendations. Status: Acute (2) Acute respiratory distress syndrome (ARDS) due to COVID-19 virus: Status: Acute (3) Fungal pneumonia: Completed course of caspofungin. Status: Acute (4) Pulmonary embolism: Continue anticoagulation. Status: Acute (5) Methadone dependence: Status: Chronic (6) Hypothyroidism: Status: Chronic Qualifiers: Hypothyroidism type: acquired Qualified Code(s): E03.9 - Hypothyroidism, unspecified (7) Benign essential HTN: Status: Chronic (8) Tracheostomy in place: Continue tracheostomy care. Oxygen support. Wean down as tolerating. Pending admission to LTAC. Tracheostomy exchange once oxygenation improves further. Status: Acute (9) Pneumothorax: I do not see any pneumothorax. Status: Acute Additional A&P Information Anemia: Had good response to PRBC transfusion. After his next etiology, ANGELA, ACD. Most likely because of severe malnutrition along with chronic sickness. Vitamin B12, folate are okay. Reticulocyte count had not been collected pretransfusion. Stool for occult blood positive. Protonix 40 mg IV twice daily. Abdominal series without sign off perforation. Peripheral neuropathy: Continue gabapentin. Was started on Requip as well, although we will need to confirm whether his symptoms of restless legs. Chronic Methadone Dependence: Resume once tolerating oral intake History of Vance-en-y gastric bypass --Complicates history, continue supplements Tube feedings Full dose Lovenox will help with DVT prophylaxis. Protonix for PUD prophylaxis. Bowel regimen Full code. Discharge planning: Plans for possible discharge to LTAC. Attestations Medical Necessity Statement*: Continue admission for management of hypoxic respiratory failure, weaning down on oxygen, will need tracheostomy exchange, pending arrangements for continued care at LTAC. Procedures Arterial Line Size (Gauge): 20 Coding Level of Care Code Acute Metal Stud Framer for [facility] Fwd Exam Comprehensive Diagnoses Hypoxia R09.02 Acute respiratory distress syndrome (ARDS) due to COVID-19 virus U07.1; J80 Fungal pneumonia B49; J17 Pulmonary embolism I26.99 Methadone dependence F11.20 Hypothyroidism E03.9 Hypothyroidism type: acquired Benign essential HTN I10 Tracheostomy [address] Z93.0 Pneumothorax J93.9
[2021-06-07] MEDS: fentaNYL 50 mcg/mL INJ 2mL 25 MCG IVP (09:36)
[2021-06-07] MEDS: ALPRAZolam 0.5 mg Tablet PO (13:07)
--- NOTE | 2021-06-07 15:12 | PC.RESP ---
RT Shift Note Frequent safety and respiratory rounds continue. Orders completed as indicated. Patient monitored pre and post treatments throughout shift. Patient [Did.] tolerate treatments appropriately. Condition [.DidNotChange]. Patient and/or customer field representative educated on respiratory treatment and medications. Patient and/or customer field representative [verbalized understanding]. Will continue to monitor patient progress.
[2021-06-07] MEDS: methadone 10 mg Tablet 50 MG PO (15:15)
--- NOTE | 2021-06-07 16:15 | PC.SOCIAL ---
IMM IMM updated, Initial, dated and times, copy put in chart. and copy given to pt. verbalized understanding
--- NOTE | 2021-06-07 18:12 | PC.NURSE ---
Shift Note Frequent safety and comfort rounds continue. Orders and/or nursing care completed as indicated. Patient monitored for response to intervention and treatment(s). At approximately 0930 Patent was unable to reach goal of sitting in the bedside chair. Patient was unable to use bedside commode due to weakness and shortness of breath. Patient stated she did not feel like she had enough oxygen and she just had too much anxiety to continue. Patient received ordered dose of 1mg klonopn at 0735. Rectal tube inserted due to frequent watery stool and patient unable to tolerate activity of linen changes and hygiene care. Education provided includes medication education, oxygen safety education, current condition and plan of care as well as any new orders during shift. Patient and/or inbound call center representative verbalized understanding.
[2021-06-07] MEDS: amitriptyline 25 mg Tablet 100 MG PO (21:02)
[2021-06-07] MEDS: trazodone 150 mg Tablet 75 MG PO (21:02)
[2021-06-08] VITALS (31 sets, daily range): BP systolic 89–132; BP diastolic 55–90; PULSE 62–103; RESP 12–26; TEMP 36.2–36.9; O2SAT 87–97; BMI 29.0
[2021-06-08] MEDS: ipratropium-albuterol 3 mL Neb INHALATION ×6 (03:29→23:19)
[2021-06-08] MEDS: HYDROcodone-acetaminophen 5-325 mg Tablet 1 TAB PO (05:12)
--- NOTE | 2021-06-08 05:15 | PC.NURSE ---
Rectal tube Patient stated feeling pressure around the rectal tube. Stool noted in the tubing close to rectum, tube irrigated with 40 ml water to help flush tubing and relieve pressure. Following irrigation, patient stated a feeling of less pressure.
--- NOTE | 2021-06-08 06:00 | XR_ITS ---
WS: [id number] XR chest 1V portable [id number] REASON FOR EXAM: Hypoxia FINDINGS: Tracheostomy tube, right arm PICC line, and nasogastric tube remain in proper position. Bilateral infiltrates without significant interval change. No new findings. XR/XR chest 1V portable [id number] IMPRESSION: Stable abnormal chest.
[2021-06-08 06:05] LABS: Basophils % 0.4 %; Eosinophils # 0.5 10^3/uL (0.0-0.8); Eosinophils % 9.7 %; Hematocrit 35.3 % (37.0-47.0); Hemoglobin 10.3 g/dL (11.5-15.3); Lymphocytes # 1.5 10^3/uL (0.8-4.8); Lymphocytes % 32.5 %; Mean Corpuscular HGB Conc 29.2 g/dL (30.0-36.0); Mean Corpuscular Volume 82.1 fl (81-99); Mean Platelet Volume 10.3 fL (7.4-10.4); Monocytes # 0.3 10^3/uL (0.2-0.9); Monocytes % 7.2 %; Neutrophils # 2.34 10^3/uL (1.8-7.7); Neutrophils % 49.4 %; Nucleated Red Blood Cells % 0 %; Red Cell Distribution Width 19.9 % (12.1-15.1); White Blood Count 4.7 10^3/uL (4.0-10.0)
[2021-06-08 06:15] LABS: Alanine Aminotransferase 51 U/L (0-33); Albumin Level 3.5 g/dL (3.5-5.2); Alkaline Phosphatase 127 IU/L (35-105); Anion Gap 11.8 (5-19); Aspartate Amino Transferase 44 U/L (0-32); Blood Urea Nitrogen 7 mg/dL (6-20); Calcium 8.7 mg/dL (8.5-10.5); Carbon Dioxide 31 mmol/L (22-29); Chloride 102 mmol/L (98-107); Globulin 2.2 g/dL (1.3-4.6); Glomerular Filtration Rate 366.1 mL/min (90-130); Glucose 114 mg/dL (65-115); Osmolality Calculated 291 mOsm/kg (285-295); Potassium 3.8 mmol/L (3.5-5.1); Sodium 141 mmol/L (136-145); Total Bilirubin 0.6 mg/dL (0.15-1.2); Total Protein 5.7 g/dL (6.6-8.7)
[2021-06-08 06:47] LABS: Platelet Count 115 10^3/cmm (130-400); Slide Review Slide Review Perform
--- NOTE | 2021-06-08 07:30 | PC.NURSE ---
Shift Note Frequent safety and comfort rounds continue. Orders and/or nursing care completed as indicated. Patient monitored for response to intervention and treatment(s). Education provided includes necessity of rectal tube and carver catheter to accurately measure output, and medication side effects/dosage/use. Patient verbalized understanding.
[2021-06-08] MEDS: budesonide 0.5 mg/2 mL Neb INHALATION ×2 (07:32→19:56)
[2021-06-08] MEDS: citalopram 20 mg Tablet PO (08:39)
[2021-06-08] MEDS: enoxaparin 80 mg/0.8 mL Syringe SUBCUT ×2 (08:40→21:15)
[2021-06-08] MEDS: gabapentin 300 mg Capsule 600 MG PO ×3 (08:40→21:12)
[2021-06-08] MEDS: levothyroxine 100 mcg SDV 37.5 MCG IVP (08:40)
[2021-06-08] MEDS: methadone 10 mg Tablet 50 MG PO (08:40)
[2021-06-08] MEDS: folic acid 1 mg Tablet PO (08:40)
[2021-06-08] MEDS: ropinirole 0.25 mg Tablet PO ×3 (08:41→21:12)
[2021-06-08] MEDS: oxybutynin 5 mg Tablet PO ×2 (08:41→17:54)
[2021-06-08] MEDS: zinc gluconate 50 mg Tablet PO (08:41)
--- NOTE | 2021-06-08 08:46 | PM.PN ---
Subjective Subjective: Interval history: She has been having some secretions which she is getting help suctioned from ICU staff. She has been bothered by the rectal tube and wants it taken out. She is taking some oral intake last night, and felt it went better than she had expected. Vitals/I&O/Wt Last Vital Signs Temp 97.9 F 06/08/21 07:30 Pulse 94 06/08/21 08:30 Resp 26 H 06/08/21 08:30 BP 123/84 06/08/21 08:30 Pulse Ox 87 L 06/08/21 08:30 06/07/21 06/08/21 06/08/21 22:59 06:59 14:59 Intake Total 180 / 180 Output Total 250 / 950 375 / 1325 Balance -70 / -770 -375 / -1145 Weight last 48 hrs Weight 89.312 kg Weight 89.386 kg Physical Exam Const: COMMON NORMALS: no acute distress and patient oriented x3 HENMT: COMMON NORMALS: oropharynx normal OTHER: HHF attached to trach Neck/C-Spine: COMMON NORMALS: no JVD Resp: COMMON NORMALS: normal respiratory effort AUSCULTATION: rhonchi Cardio: COMMON NORMALS: no JVD, regular rhythm, S1 normal heart sound present, S2 normal heart sound present and No murmurs present (Cardio) RHYTHM: regular rhythm HEART SOUNDS: S1 normal heart sound present and S2 normal heart sound present GI: COMMON NORMALS: Normal to inspection, nondistended, normoactive bowel sounds present, Soft to palpation and non-tender PALPATION: Yes Soft to palpation Extremity: COMMON NORMALS: no joint enlargement and no pedal edema Neuro: COMMON NORMALS: patient oriented x3 and moves all extremities Skin: COMMON NORMALS: no rashes or lesions noted GENERAL SKIN EXAM: no rashes or lesions noted Urinary Catheter Management^: Lopez: Cath Placed During This Visit: yes Reason for Continuing Indwelling Catheter: Accurate Measurement of Urinary Output in Critically Ill Patients Urinary Catheter Date of Insertion: 05/15/21 Urinary Catheter Time of Insertion: 11:56 Data : 06/08/21 05:43 06/08/21 05:43 A&P Assessment and plan (1) Hypoxia: Has been requiring 75% FiO2, probably slightly better than to 70. Continues with airway secretions. Pending tracheostomy exchange once oxygenation improves we will bit more. Repeat chest x-ray obtained, unchanged. She is trialing some oral intake. Monitor for aspiration. Has completed treatment with caspofungin. No leukocytosis, afebrile. Mild tachycardia. No sign of sepsis. On therapeutic anticoagulation. Continue supportive care at this time. Breathing treatments. Trach care. Wean down oxygen as tolerated. P.o. intake trial as per ANALYTICAL STRATEGIST recommendations. Status: Acute (2) Acute respiratory distress syndrome (ARDS) due to COVID-19 virus: Status: Acute (3) Fungal pneumonia: Completed course of caspofungin. Status: Acute (4) Pulmonary embolism: Continue anticoagulation. Status: Acute (5) Methadone dependence: Status: Chronic (6) Hypothyroidism: Status: Chronic Qualifiers: Hypothyroidism type: acquired Qualified Code(s): E03.9 - Hypothyroidism, unspecified (7) Benign essential HTN: Status: Chronic (8) Tracheostomy in place: Continue tracheostomy care. Oxygen support. Wean down as tolerating. Pending admission to LTAC. Tracheostomy exchange once oxygenation improves further. Status: Acute (9) Pneumothorax: I do not see any pneumothorax. Status: Acute Additional A&P Information Anemia: Had good response to PRBC transfusion. After his next etiology, ANGELA, ACD. Most likely because of severe malnutrition along with chronic sickness. Vitamin B12, folate are okay. Reticulocyte count had not been collected pretransfusion. Stool for occult blood positive. Protonix 40 mg IV twice daily. Abdominal series without sign off perforation. Peripheral neuropathy: Continue gabapentin. Was started on Requip as well, as per reports has been having restless legs. Chronic Methadone Dependence: Resumed History of Vance-en-y gastric bypass --Complicates history, continue supplements Tube feedings, reduce as advancing oral intake. Appreciate nutrition recommendations. Full dose Lovenox will help with DVT prophylaxis. Protonix for PUD prophylaxis. Bowel regimen Full code. Discharge planning: Plans for possible discharge to LTAC. Attestations Medical Necessity Statement*: Continue admission for assessment of hypoxic respiratory failure following severe COVID-19, weaning high supplemental O2, post tracheostomy care, pending tracheostomy exchange. Disposition planning and arrangements. Procedures Arterial Line Size (Gauge): 20 Coding Level of Care Code Acute Insect Control Inspector for [facility] Diagnoses Hypoxia R09.02 Acute respiratory distress syndrome (ARDS) due to COVID-19 virus U07.1; J80 Fungal pneumonia B49; J17 Pulmonary embolism I26.99 Methadone dependence F11.20 Hypothyroidism E03.9 Hypothyroidism type: acquired Benign essential HTN I10 Tracheostomy [address] Z93.0 Pneumothorax J93.9
--- NOTE | 2021-06-08 09:00 | PC.CHAP ---
Pastoral Care Encounter/Spiritual Assessment Type of Contact [] Declined director of people visit [] Patient/Family/Request visit [] Outpatient visit [] Follow-up visit [] Physician referral [] Code/Alert [x] Routine visit [] Staff referral [] Actively dying [] Patient sleeping [] Family support [] [] Out of room [] Palliative care [] [] Receiving care in room [] Pre-surgical visit [] Trauma [] Long length of stay [x] ICU visit [] Other: Relational/Emotional Strength [] Patient feels connected with others/family/visitors/staff [] Distress [] Loneliness/isolation [] Abandonment Spirituality of Patient [x] Person of Ekta [] Attends [facility] of their [place] [] Believes in Prayer [] Reads Bible or Yazidism materials [] There are Spiritual issues to be addressed [employer]namental [employer] Interventions [x] Prayer [x] Active listening [x] Non-anxious presence [x] Spiritual/emotional support [] Crisis/trauma care [] Spiritual counseling [] Bereavement support [] Provided bereavement packet [] Provided Bible/devotional materials [] Provided toy/stuffed animal, coloring book to patient or family member [] Provided Communion [] Anointing/[place] [] Salvation [x] Completed spiritual assessment [] Other: Impact on Illness or Injury [] Angry [] Fearful [] Anxious [] Often cries [] Exhaustion [] Unable to work [] Unable to attend anglican [] Unable to walk/stand [] Unable to read [] Unable to drive [] Unable to eat/drink [] Unable to sleep [] Unable to be with family [] Patient intubated [] Other: Summary patient still have congestion..feeling stronger... wants to get well to get home to [facility] Time spent with patient 10 min
[2021-06-08] MEDS: ascorbic acid 500 mg Tablet PO (10:10)
[2021-06-08] MEDS: pantoprazole 40 mg SDV IVP ×2 (10:10→21:12)
--- NOTE | 2021-06-08 10:47 | PC.NUTR ---
Tube feeding recommendation: Recommend tube feeding Pulmocare at 25 mL/hr with 100mL free H20 flushes q4h along with soft mechanical diet. Placed order as per verbal order. Tube feeding will provide 900 kcal, 38g protein, and 1,071 mL water/day. Can decrease tube feeding as PO intake improves. See full RD assessment for further details.
--- NOTE | 2021-06-08 11:09 | PC.NURSE ---
[address] Steiner. Reviewed labs, O2, lung sounds, and nutrition. Orders to DC rectal tube and keep NGT.
--- NOTE | 2021-06-08 18:43 | PC.NURSE ---
Shift Note Frequent safety and comfort rounds continue. Orders and/or nursing care completed as indicated. Patient monitored for response to intervention and treatment(s). Patient was calm most of the day with the exception of stating she was scared of the removal of the rectal tube and also stated she was afraid she would have a panic attack. Removal of the tube was tolerated well. Pulmocare 1.5 ISABEL started at 25ml/hr with FWF at 100ml Q4hr. Patient is tolerating feeding well. She was able to eat soft things with assistance and is able to take PO medications. Urine output decreased over retail shift leader with having 350ml is 8hr time. Output has continued to decrease throughout this shift. Dr. Steiner notified via Brenda OLMEDO. Education provided includes hydration/ nutrition/ current treatments and any new orders during shift. Patient educated on the importance of position changes and encouraged to reduce pressure to buttock; including turning and pillow placement. Patient verbalized understanding, but needs reinforcement.
[2021-06-08] MEDS: acetaminophen 325 mg Tablet 650 MG PO (20:05)
--- NOTE | 2021-06-08 20:05 | PC.NURSE ---
Education Patient communicated worries about removing the NG tube and the carver catheter in the future, in addition to asking about her oxygen requirements. Education provided regarding the procedures of removing the NG/carver and about her current oxygenation status and therapy. Patient verbalized understanding and stated she felt a little better about it.
[2021-06-08] MEDS: trazodone 150 mg Tablet 75 MG PO (21:12)
[2021-06-08] MEDS: amitriptyline 25 mg Tablet 100 MG PO (21:12)
[2021-06-09] VITALS (49 sets, daily range): BP systolic 84–122; BP diastolic 58–78; PULSE 77–110; RESP 12–25; TEMP 36.7–37.4; O2SAT 78–99; BMI 28.3
--- NOTE | 2021-06-09 00:12 | PC.NURSE ---
Temperature Due to patient's temperature of 97.2 F, warm blankets were applied to patient, fan in room was turned off, and the room temperature was increased. Will continue to monitor.
[2021-06-09] MEDS: ondansetron 2 mg/ML SDV 2 mL 4 MG IVP (03:04)
--- NOTE | 2021-06-09 03:06 | XRR_ITS ---
PROCEDURE INFORMATION: Exam: XR Chest Exam date and time: 06/09/2021 3:06 AM Age: 55 years old Clinical indication: Patient HX: Aspiration. TECHNIQUE: Imaging protocol: XR of the chest. Views: 1 view. COMPARISON: CR XR chest 1V portable [id number] 06/08/2021 5:17 AM FINDINGS: Tubes, catheters and devices: A tracheostomy tube projects over the tracheal air column. Right sided PICC is in satisfactory position, with distal tip in the SVC, approximately 2 cm above the SVC/RA junction. Surgical clips project over the upper abdomen. Lungs: Low lung volumes. Persistent bilateral airspace opacities. No large pleural effusion or pneumothorax. Pleural spaces: See Lungs finding. Heart/Mediastinum: Stable cardiomediastinal silhouette. Bones/joints: No acute osseous injury identified. Degenerative changes of the spine seen. XR/XR chest 1V portable [id number] IMPRESSION: Persistent bilateral airspace opacities.
--- NOTE | 2021-06-09 03:08 | PC.NURSE ---
NG tube/Aspiration Patient found to have tube feeding formula running out of nose onto gown with only 1 inch of NG tube inserted in body. Oxygen saturation in the high 80s. NG tube removed completely, RT and Dr. Marc notified. Suctioning was performed by RT, resulting in thick justin secretions being removed; additionally, FIO2 was increased to 100%. Orders received from Dr. Marc for a chest x-ray, NPO diet, and breathing treatment. Orders carried out as indicated. Following interventions, patient's oxygen saturation remains in the 90's. Verbal message from daysrift nurse in report stated that the NG tube was not to be replaced if removed due to patient history.
[2021-06-09] MEDS: ipratropium-albuterol 3 mL Neb INHALATION ×6 (03:16→23:17)
[2021-06-09] MEDS: HYDROcodone-acetaminophen 5-325 mg Tablet 1 TAB PO (03:29)
[2021-06-09 04:10] LABS: Basophils % 0.5 %; Eosinophils # 0.4 10^3/uL (0.0-0.8); Eosinophils % 9.1 %; Hemoglobin 10.4 g/dL (11.5-15.3); Lymphocytes # 1.8 10^3/uL (0.8-4.8); Lymphocytes % 43.2 %; Mean Corpuscular HGB Conc 28.9 g/dL (30.0-36.0); Mean Corpuscular Hemoglobin 24.4 pg (28.0-34.0); Mean Corpuscular Volume 84.3 fl (81-99); Mean Platelet Volume 10.1 fL (7.4-10.4); Monocytes # 0.3 10^3/uL (0.2-0.9); Monocytes % 6.9 %; Neutrophils % 39.6 %; Nucleated Red Blood Cells % 0 %; Platelet Count 135 10^3/cmm (130-400); Red Blood Count 4.27 10^6/uL (4.1-5.3); Red Cell Distribution Width 19.7 % (12.1-15.1); White Blood Count 4.1 10^3/uL (4.0-10.0)
[2021-06-09 04:29] LABS: Alanine Aminotransferase 66 U/L (0-33); Albumin Level 3.5 g/dL (3.5-5.2); Alkaline Phosphatase 136 IU/L (35-105); Anion Gap 11.8 (5-19); Aspartate Amino Transferase 40 U/L (0-32); Blood Urea Nitrogen 5 mg/dL (6-20); Calcium 8.7 mg/dL (8.5-10.5); Carbon Dioxide 33 mmol/L (22-29); Chloride 102 mmol/L (98-107); Globulin 2.6 g/dL (1.3-4.6); Glomerular Filtration Rate 229.3 mL/min (90-130); Glucose 125 mg/dL (65-115); Osmolality Calculated 295 mOsm/kg (285-295); Potassium 3.8 mmol/L (3.5-5.1); Sodium 143 mmol/L (136-145); Total Bilirubin 0.5 mg/dL (0.15-1.2); Total Protein 6.1 g/dL (6.6-8.7)
[2021-06-09] MEDS: acetaminophen 325 mg Tablet 650 MG PO (05:56)
--- NOTE | 2021-06-09 06:57 | PC.NURSE ---
Patient's hair brushed and put in a ponytail as requested.
--- NOTE | 2021-06-09 07:10 | PC.NURSE ---
Shift Note Frequent safety and comfort rounds continue. Orders and/or nursing care completed as indicated. Patient monitored for response to intervention and treatment(s). Education provided includes oxygenation requirements/ infection prevention/ medication information. Patient verbalized understanding.
[2021-06-09] MEDS: levothyroxine 100 mcg SDV 37.5 MCG IVP (08:28)
[2021-06-09] MEDS: pantoprazole 40 mg SDV IVP ×2 (08:28→20:44)
[2021-06-09] MEDS: methadone 10 mg Tablet 50 MG PO (08:29)
[2021-06-09] MEDS: folic acid 1 mg Tablet PO (08:29)
[2021-06-09] MEDS: zinc gluconate 50 mg Tablet PO (08:29)
[2021-06-09] MEDS: ropinirole 0.25 mg Tablet PO ×3 (08:29→20:13)
[2021-06-09] MEDS: gabapentin 300 mg Capsule 600 MG PO ×3 (08:29→20:13)
[2021-06-09] MEDS: oxybutynin 5 mg Tablet PO ×2 (08:30→17:10)
[2021-06-09] MEDS: enoxaparin 80 mg/0.8 mL Syringe SUBCUT ×2 (08:30→20:14)
[2021-06-09] MEDS: citalopram 20 mg Tablet PO (08:30)
[2021-06-09] MEDS: ascorbic acid 500 mg Tablet PO (08:30)
--- NOTE | 2021-06-09 08:42 | P.PN_ITS ---
Subjective Subjective: Interval history: States she is doing okay. Night was all right. Still producing sputum, but perhaps slightly less. No chest pain, no abdominal discomfort. Vitals/I&O/Wt Last Vital Signs Temp 98.5 F 06/09/21 06:00 Pulse 93 06/09/21 06:00 Resp 17 06/09/21 06:00 BP 91/59 06/09/21 06:00 Pulse Ox 91 06/09/21 06:00 06/08/21 06/09/21 06/09/21 22:59 06:59 14:59 Intake Total 402 / 762 368 / 1130 Output Total 100 / 100 900 / 1000 Balance 302 / 662 -532 / 130 Weight last 48 hrs Weight 87.09 kg Weight 89.312 kg Physical Exam Const: COMMON NORMALS: no acute distress, patient oriented x3 and alert GENERAL APPEARANCE: cooperative HENMT: COMMON NORMALS: oropharynx normal OTHER: HHF attached to trach Neck/C-Spine: COMMON NORMALS: no JVD Resp: COMMON NORMALS: normal respiratory effort AUSCULTATION: diminished lung sounds Cardio: COMMON NORMALS: no JVD, regular rhythm, S1 normal heart sound present, S2 normal heart sound present and No murmurs present (Cardio) RHYTHM: regular rhythm HEART SOUNDS: S1 normal heart sound present and S2 normal heart sound present GI: COMMON NORMALS: Normal to inspection, nondistended, normoactive bowel sounds present, Soft to palpation and non-tender PALPATION: Yes Soft to palpation Extremity: COMMON NORMALS: no joint enlargement and no pedal edema Neuro: COMMON NORMALS: patient oriented x3 and moves all extremities SENSORIUM/ORIENTATION: Yes alert Skin: COMMON NORMALS: no rashes or lesions noted GENERAL SKIN EXAM: no rashes or lesions noted Urinary Catheter Management^: Lopez: Cath Placed During This Visit: yes Reason for Continuing Indwelling Catheter: Accurate Measurement of Urinary Output in Critically Ill Patients Urinary Catheter Date of Insertion: 05/15/21 Urinary Catheter Time of Insertion: 11:56 Data : 06/09/21 03:45 06/09/21 03:45 A&P Assessment and plan (1) Hypoxia: Continues to need 70% FiO2. Continues with airway secretions. Pending tracheostomy exchange once oxygenation improves we will bit more. Repeat chest x-ray unchanged. Has completed treatment with caspofungin. No leukocytosis, afebrile. No sign of sepsis. On therapeutic anticoagulation. Continue supportive care at this time. Breathing treatments. Trach care. Wean down oxygen as tolerated. Continue oral intake as tolerating. Monitor for aspiration. Mobilize with PT, OT. ST. Status: Acute (2) Acute respiratory distress syndrome (ARDS) due to COVID-19 virus: Status: Acute (3) Fungal pneumonia: Completed course of caspofungin. Status: Acute (4) Pulmonary embolism: Continue anticoagulation. Status: Acute (5) Methadone dependence: Status: Chronic (6) Hypothyroidism: Status: Chronic Qualifiers: Hypothyroidism type: acquired Qualified Code(s): E03.9 - Hypothyr oidism, unspecified (7) Benign essential HTN: Status: Chronic (8) Tracheostomy in place: Continue tracheostomy care. Oxygen support. Wean down as tolerating. Tracheostomy exchange once oxygenation improves further. Status: Acute (9) Pneumothorax: I do not see any pneumothorax. Status: Acute Additional A&P Information Anemia: Had good response to PRBC transfusion. After his next etiology, ANGELA, ACD. Most likely because of severe malnutrition along with chronic sickness. Vitamin B12, folate are okay. Reticulocyte count had not been collected pretransfusion. Stool for occult blood positive. Protonix 40 mg IV twice daily. Abdominal series without sign of perforation. Peripheral neuropathy: Continue gabapentin. Was started on Requip as well, as per reports has been having restless legs. Chronic Methadone Dependence: Resumed History of Vance-en-y gastric bypass --Complicates history, continue supplements Tube feedings, reduce as advancing oral intake. Appreciate nutrition recommendations. Full dose Lovenox will help with DVT prophylaxis. Protonix for PUD prophylaxis. Bowel regimen Full code. Discharge planning: Plans for possible discharge to LTAC. Attestations Medical Necessity Statement*: Continue admission for hypoxic respite failure, weaning of high requirement of oxygen following diffuse alveolar hemorrhage following severe COVID-19 pneumonia, advancement of oral intake following tracheostomy, tracheostomy care, pending tracheostomy exchange. Procedures Arterial Line Size (Gauge): 20 Coding Level of Care Code Acute Senior Research Fellow for [facility] Fwd Diagnoses Hypoxia R09.02 Acute respiratory distress syndrome (ARDS) due to COVID-19 virus U07.1; J80 Fungal pneumonia B49; J17 Pulmonary embolism I26.99 Methadone dependence F11.20 Hypothyroidism E03.9 Hypothyroidism type: acquired Benign essential HTN I10 Tr[address]ostomy [address] Z93.0 Pneumothorax J93.9
[2021-06-09] MEDS: budesonide 0.5 mg/2 mL Neb INHALATION ×2 (09:07→19:51)
--- NOTE | 2021-06-09 13:47 | PC.SOCIAL ---
IMM Updated Updated pt on Pg 2 IMM. No questions voiced. Provided pt a copy. Initialed, dated, & timed copy in chart.
--- NOTE | 2021-06-09 18:08 | PC.NURSE ---
Patient states she thinks she has a UTI. Upon assessment she stated she felt burning at the insertion site. Palpitation of bladder did not find distention. Patient stated her bladder felt full. Bladder scan resulted 109ml. Dr. Steiner notified via Brenda OLMEDO.
--- NOTE | 2021-06-09 18:27 | PC.NURSE ---
Shift Note Frequent safety and comfort rounds continue. Orders and/or nursing care completed as indicated. Patient monitored for response to intervention and treatment(s). At approximately 1330 patient able to use bedside commode and then transfer to bedside hair. Patient remained in bedside chair until about 1430 and returned to bed. Patient complained that she thought she had a UTI because she felt burning at the insert site of the catheter. Catheter care performed again and no signs of irritation noted. Speech therapy assessed patients ability to swallow and determined patient could return to soft diet. RT and PT ambulated patient to end of bed and back to bedside recliner. Patient remained in recliner for evening meal. While in recliner patient stated she felt like she needed to urinate but could not, with little urine output noted this shift. Patient returned to bed and bladder scan was performed resulting in a reading of 109ml. Dr. Steiner notified of 200ml urine output this shift via Brenda RN. Redness on buttock appears to be reduced in size from yesterday and patient reports a reduction in pain. Reinforced education about position changes recommended.
[2021-06-09] MEDS: amitriptyline 25 mg Tablet 100 MG PO (20:14)
[2021-06-09] MEDS: trazodone 150 mg Tablet 75 MG PO (20:14)
[2021-06-10] VITALS (55 sets, daily range): BP systolic 85–123; BP diastolic 61–84; PULSE 64–116; RESP 8–39; TEMP 36.9–37.4; O2SAT 76–96; BMI 28.0
--- NOTE | 2021-06-10 02:18 | PC.NURSE ---
Addendum entered by ALONSO Dennis 06/10/21 04:05: FIO2 has slowly been decreased back down to 70% by RT. Patient's oxygen saturation level has remained high 80s to low 90s. Original Note: Oxygen saturation Around 0150, after changing bed linens, Patient's oxygen saturation level decreased to low 80's/high 70's. Respiratory therapist and Dr. Marc were called and orders recieved from Dr. Marc to deep suction and provide a breathing treatment as scheduled. Orders carried out as indicated. Additionally, oxygen therapy settings changed to 90% FIO2 at 50 L of heated high flow. Following interventions, patient's oxygen saturation level increased to mid 90's.
[2021-06-10] MEDS: ipratropium-albuterol 3 mL Neb INHALATION ×5 (03:00→19:53)
[2021-06-10 03:47] LABS: Basophils % 0.2 %; Eosinophils # 0.3 10^3/uL (0.0-0.8); Eosinophils % 5.8 %; Hematocrit 34.9 % (37.0-47.0); Hemoglobin 10.1 g/dL (11.5-15.3); Lymphocytes # 1.3 10^3/uL (0.8-4.8); Lymphocytes % 23.6 %; Mean Corpuscular HGB Conc 28.9 g/dL (30.0-36.0); Mean Corpuscular Hemoglobin 24.2 pg (28.0-34.0); Mean Corpuscular Volume 83.7 fl (81-99); Mean Platelet Volume 9.9 fL (7.4-10.4); Monocytes # 0.5 10^3/uL (0.2-0.9); Monocytes % 8.1 %; Neutrophils # 3.53 10^3/uL (1.8-7.7); Neutrophils % 61.9 %; Nucleated Red Blood Cells % 0 %; Platelet Count 120 10^3/cmm (130-400); Red Blood Count 4.17 10^6/uL (4.1-5.3); Red Cell Distribution Width 19.4 % (12.1-15.1); White Blood Count 5.7 10^3/uL (4.0-10.0)
[2021-06-10 04:05] LABS: Alanine Aminotransferase 50 U/L (0-33); Albumin Level 3.5 g/dL (3.5-5.2); Alkaline Phosphatase 135 IU/L (35-105); Aspartate Amino Transferase 32 U/L (0-32); Blood Urea Nitrogen 5 mg/dL (6-20); Calcium 8.8 mg/dL (8.5-10.5); Carbon Dioxide 32 mmol/L (22-29); Chloride 97 mmol/L (98-107); Globulin 2.6 g/dL (1.3-4.6); Glomerular Filtration Rate 229.3 mL/min (90-130); Glucose 136 mg/dL (65-115); Osmolality Calculated 283 mOsm/kg (285-295); Sodium 137 mmol/L (136-145); Total Bilirubin 0.7 mg/dL (0.15-1.2); Total Protein 6.1 g/dL (6.6-8.7)
--- NOTE | 2021-06-10 06:49 | PC.NURSE ---
Shift Note Frequent safety and comfort rounds continue. Orders and/or nursing care completed as indicated. Patient monitored for response to intervention and treatment(s). Education provided includes information regarding oxygenation requirements, deep tracheal suctioning, and treatment goals. Patient verbalized understanding.
[2021-06-10] MEDS: methadone 10 mg Tablet 50 MG PO (07:41)
[2021-06-10] MEDS: budesonide 0.5 mg/2 mL Neb INHALATION ×2 (07:42→19:53)
[2021-06-10] MEDS: levothyroxine 100 mcg SDV 37.5 MCG IVP (07:49)
[2021-06-10] MEDS: pantoprazole 40 mg SDV IVP ×3 (07:53→20:20)
[2021-06-10] MEDS: oxybutynin 5 mg Tablet PO ×2 (08:00→17:12)
[2021-06-10] MEDS: folic acid 1 mg Tablet PO (08:00)
[2021-06-10] MEDS: gabapentin 300 mg Capsule 600 MG PO ×3 (08:00→20:13)
[2021-06-10] MEDS: citalopram 20 mg Tablet PO (08:00)
[2021-06-10] MEDS: sennosides-docusate Tablet 1 TAB PO (08:00)
[2021-06-10] MEDS: ascorbic acid 500 mg Tablet PO (08:00)
[2021-06-10] MEDS: ropinirole 0.25 mg Tablet PO ×3 (08:01→20:14)
[2021-06-10] MEDS: enoxaparin 80 mg/0.8 mL Syringe SUBCUT ×2 (08:01→20:14)
[2021-06-10] MEDS: zinc gluconate 50 mg Tablet PO (08:01)
[2021-06-10] MEDS: polyethylene glycol 3350 Pkt 17 gm PO (08:01)
--- NOTE | 2021-06-10 08:28 | PM.PN ---
Subjective Subjective: Interval history: She states that she has had a good night. She finally had some rest which she states she needed. Still producing some secretions. Had asked for stool softener since has been feeling constipated. No bowel movement so far. Vitals/I&O/Wt Last Vital Signs Temp 99.4 F 06/10/21 04:00 Pulse 103 H 06/10/21 08:00 Resp 23 H 06/10/21 08:00 BP 106/69 06/10/21 08:00 Pulse Ox 88 L 06/10/21 08:00 06/09/21 06/10/21 06/10/21 22:59 06:59 14:59 Intake Total 236 / 236 Output Total 150 / 150 375 / 525 Balance 86 / 86 -375 / -289 Weight last 48 hrs Weight 86.183 kg Weight 87.09 kg Physical Exam Const: COMMON NORMALS: no acute distress, patient oriented x3 and alert GENERAL APPEARANCE: cooperative ORIENTATION/CONSCIOUSNESS: Yes awake HENMT: COMMON NORMALS: oropharynx normal Neck/C-Spine: COMMON NORMALS: no JVD Resp: COMMON NORMALS: normal respiratory effort AUSCULTATION: diminished lung sounds Cardio: COMMON NORMALS: no JVD, regular rhythm, S1 normal heart sound present, S2 normal heart sound present and No murmurs present (Cardio) RHYTHM: regular rhythm HEART SOUNDS: S1 normal heart sound present and S2 normal heart sound present GI: COMMON NORMALS: Normal to inspection, nondistended, normoactive bowel sounds present, Soft to palpation and non-tender PALPATION: Yes Soft to palpation Extremity: COMMON NORMALS: no joint enlargement and no pedal edema Neuro: COMMON NORMALS: patient oriented x3 and moves all extremities SENSORIUM/ORIENTATION: Yes alert Skin: COMMON NORMALS: no rashes or lesions noted GENERAL SKIN EXAM: no rashes or lesions noted Urinary Catheter Management^: Lopez: Cath Placed During This Visit: yes Reason for Continuing Indwelling Catheter: Accurate Measurement of Urinary Output in Critically Ill Patients Urinary Catheter Date of Insertion: 05/15/21 Urinary Catheter Time of Insertion: 11:56 Data : 06/10/21 03:35 06/10/21 03:35 Micro: Microbiology 06/08/21 13:48 C.difficile Toxin B Gene (PCR) - Final Stool Routine Collection A&P Assessment and plan (1) Hypoxia: Continue supportive care. Continue to wean down oxygen as tolerating. Secretions perhaps somewhat subsiding. She has been overall less anxious. Continues to need 70% FiO2. Continue trach care. Pulmonary toilet. Pending tracheostomy exchange once oxygenation improves we will bit more. Has completed treatment with caspofungin. No leukocytosis, afebrile. No sign of sepsis. On therapeutic anticoagulation. Continue supportive care at this time. Breathing treatments. Trach care. Wean down oxygen as tolerated. Continue oral intake as tolerating. Monitor for aspiration. Mobilize with PT, OT. ST. Status: Acute (2) Acute respiratory distress syndrome (ARDS) due to COVID-19 virus: Status: Acute (3) Fungal pneumonia: Completed course of caspofungin. Status: Acute (4) Pulmonary embolism: Continue anticoagulation. Status: Acute (5) Methadone dependence: Status: Chronic (6) Hypothyroidism: Status: Chronic Qualifiers: Hypothyroidism type: acquired Qualified Code(s): E03.9 - Hypothyroidism, unspecified (7) Benign essential HTN: Status: Chronic (8) Tracheostomy in place: Continue tracheostomy care. Oxygen support. Wean down as tolerating. Tracheostomy exchange once oxygenation improves further. Status: Acute (9) Pneumothorax: I do not see any pneumothorax. Status: Acute Additional A&P Information Anemia: Had good response to PRBC transfusion. Hemoglobin with some gradual improvement. After his next etiology, ANGELA, ACD. Most likely because of severe malnutrition along with chronic sickness. Vitamin B12, folate are okay. Reticulocyte count had not been collected pretransfusion. Stool for occult blood positive. Protonix 40 mg IV twice daily. Abdominal series without sign of perforation. Peripheral neuropathy: Continue gabapentin. Was started on Requip as well, as per reports has been having restless legs. With improvement. Chronic Methadone Dependence: Resumed History of Vance-en-y gastric bypass --Complicates history, continue supplements Tube feedings, reduce as advancing oral intake. Appreciate nutrition recommendations. Full dose Lovenox will help with DVT prophylaxis. Protonix for PUD prophylaxis. Bowel regimen Full code. Discharge planning: Plans for possible discharge to LTAC. Attestations Medical Necessity Statement*: Continue admission for cyst management of hypoxic respiratory failure, diffuse alveolar damage following severe COVID-19. Procedures Arterial Line Size (Gauge): 20 Coding Level of Care Code Acute Merchandise Flow Manager for [facility] Diagnoses Hypoxia R09.02 Acute respiratory distress syndrome (ARDS) due to COVID-19 virus U07.1; J80 Fungal pneumonia B49; J17 Pulmonary embolism I26.99 Methadone dependence F11.20 Hypothyroidism E03.9 Hypothyroidism type: acquired Benign essential HTN I10 Tracheostomy [address] Z93.0 Pneumothorax J93.9
--- NOTE | 2021-06-10 12:22 | PC.NURSE ---
up on side of bed for lunch with actiity o2 sat decrease . monitor closely
--- NOTE | 2021-06-10 19:00 | PC.NURSE ---
Visitor at Bedside Patient's daughter, Sheeba, at patient bedside at 1900. Daughter asked questions regarding oxygen therapy with heated high flow and planned care for tonight. Education regarding these subjects provided and daughter verbalized understanding.
[2021-06-10] MEDS: acetaminophen 325 mg Tablet 650 MG PO (19:07)
[2021-06-10] MEDS: amitriptyline 25 mg Tablet 100 MG PO (20:13)
[2021-06-10] MEDS: trazodone 150 mg Tablet 75 MG PO (20:14)
[2021-06-11] VITALS (59 sets, daily range): BP systolic 89–116; BP diastolic 50–98; PULSE 62–106; RESP 14–20; TEMP 36.4–36.7; O2SAT 81–98; BMI 28.2
[2021-06-11] MEDS: ipratropium-albuterol 3 mL Neb INHALATION ×7 (00:04→23:30)
[2021-06-11] MEDS: HYDROcodone-acetaminophen 5-325 mg Tablet 1 TAB PO (02:09)
--- NOTE | 2021-06-11 02:22 | PC.NURSE ---
Heated High Flow connection Several times this shift patient's heated high flow tubing has disconnected from tracheostomy causing patient's oxygen saturation to decrease to low 80's. Once reconnected to oxygen each time, her oxygen saturation has increased to mid-upper 90's where it is maintained. Education provided to patient to try and keep hand below the tubing while asleep so as not to dislodge connection. Patient verbalized understanding. Education reinforcement will be provided as needed.
[2021-06-11 03:33] LABS: Basophils % 0.4 %; Eosinophils # 0.3 10^3/uL (0.0-0.8); Eosinophils % 7.2 %; Hematocrit 29.4 % (37.0-47.0); Hemoglobin 8.7 g/dL (11.5-15.3); Lymphocytes # 1.4 10^3/uL (0.8-4.8); Lymphocytes % 29.7 %; Mean Corpuscular HGB Conc 29.6 g/dL (30.0-36.0); Mean Corpuscular Hemoglobin 24.9 pg (28.0-34.0); Mean Platelet Volume 10.3 fL (7.4-10.4); Monocytes # 0.5 10^3/uL (0.2-0.9); Monocytes % 11.1 %; Neutrophils # 2.36 10^3/uL (1.8-7.7); Neutrophils % 51.2 %; Nucleated Red Blood Cells % 0 %; Platelet Count 111 10^3/cmm (130-400); Red Cell Distribution Width 19.1 % (12.1-15.1); White Blood Count 4.6 10^3/uL (4.0-10.0)
[2021-06-11 04:01] LABS: Alanine Aminotransferase 30 U/L (0-33); Albumin Level 3.1 g/dL (3.5-5.2); Alkaline Phosphatase 102 IU/L (35-105); Anion Gap 8.7 (5-19); Aspartate Amino Transferase 13 U/L (0-32); Blood Urea Nitrogen 5 mg/dL (6-20); Calcium 8.8 mg/dL (8.5-10.5); Carbon Dioxide 35 mmol/L (22-29); Chloride 99 mmol/L (98-107); Globulin 2.4 g/dL (1.3-4.6); Glomerular Filtration Rate 366.1 mL/min (90-130); Glucose 91 mg/dL (65-115); Osmolality Calculated 285 mOsm/kg (285-295); Potassium 3.7 mmol/L (3.5-5.1); Sodium 139 mmol/L (136-145); Total Bilirubin 0.6 mg/dL (0.15-1.2); Total Protein 5.5 g/dL (6.6-8.7)
--- NOTE | 2021-06-11 06:09 | PC.NURSE ---
Blood Pressure Overnight while patient was sleeping, blood pressures decreased and remained stable with a MAP >65 as indicated in documentation. Upon waking, patient's blood pressure increased to patient's usual levels. Vitals monitored closely and patient displayed no symptoms of decreased cardiac output.
--- NOTE | 2021-06-11 06:36 | PC.NURSE ---
Shift Note Frequent safety and comfort rounds continue. Orders and/or nursing care completed as indicated. Patient monitored for response to intervention and treatment(s). Education provided includes oxygen therapy requirements to patient and daughter and movements that facilitate tracheostomy/heated high flow connection staying together to patient. Patient and daughter verbalized understanding.
[2021-06-11] MEDS: gabapentin 300 mg Capsule 600 MG PO ×3 (07:49→20:16)
[2021-06-11] MEDS: methadone 10 mg Tablet 50 MG PO (07:49)
[2021-06-11] MEDS: ascorbic acid 500 mg Tablet PO (07:50)
[2021-06-11] MEDS: zinc gluconate 50 mg Tablet PO (07:50)
[2021-06-11] MEDS: sennosides-docusate Tablet 1 TAB PO (07:50)
[2021-06-11] MEDS: oxybutynin 5 mg Tablet PO ×2 (07:51→17:09)
[2021-06-11] MEDS: citalopram 20 mg Tablet PO (07:51)
[2021-06-11] MEDS: enoxaparin 80 mg/0.8 mL Syringe SUBCUT ×2 (07:51→20:17)
[2021-06-11] MEDS: ropinirole 0.25 mg Tablet PO ×3 (07:51→20:16)
[2021-06-11] MEDS: folic acid 1 mg Tablet PO (07:51)
[2021-06-11] MEDS: levothyroxine 100 mcg SDV 37.5 MCG IVP (07:52)
[2021-06-11] MEDS: polyethylene glycol 3350 Pkt 17 gm PO (07:52)
[2021-06-11] MEDS: pantoprazole 40 mg SDV IVP ×2 (07:55→20:16)
--- NOTE | 2021-06-11 08:09 | PC.NURSE ---
am meds given slightly early due to pt request not feeling as well this am didnt sleep most of night ,i kept waking up and got scared
[2021-06-11] MEDS: budesonide 0.5 mg/2 mL Neb INHALATION ×2 (08:28→20:23)
--- NOTE | 2021-06-11 08:46 | PC.SOCIAL ---
IMM Updated Page 2 of IMM updated. Reviewed with patient and copy left in chart. Initialed, timed and dated.
--- NOTE | 2021-06-11 09:14 | P.PN_ITS ---
Subjective Subjective: Interval history: She had a difficult night, could not sleep. This morning feels tired. Denies pain. Ate breakfast. Vitals/I&O/Wt Last Vital Signs Temp 97.6 F 06/11/21 03:26 Pulse 88 06/11/21 08:33 Resp 18 06/11/21 08:33 BP 99/60 06/11/21 08:00 Pulse Ox 95 06/11/21 08:33 06/10/21 06/11/21 06/11/21 22:59 06:59 14:59 Intake Total 800 / 800 Output Total 300 / 300 1350 / 1650 Balance 500 / 500 -1350 / -850 Weight last 48 hrs Weight 86.636 kg Weight 86.183 kg Physical Exam Const: COMMON NORMALS: no acute distress, patient oriented x3 and alert GENERAL APPEARANCE: cooperative ORIENTATION/CONSCIOUSNESS: Yes awake HENMT: COMMON NORMALS: oropharynx normal OTHER: HHF attached to trach Neck/C-Spine: COMMON NORMALS: no JVD Resp: COMMON NORMALS: normal respiratory effort AUSCULTATION: other (coarse/bronchial sounds) Cardio: COMMON NORMALS: no JVD, regular rhythm, S1 normal heart sound present, S2 normal heart sound present and No murmurs present (Cardio) RHYTHM: regular rhythm HEART SOUNDS: S1 normal heart sound present and S2 normal heart sound present GI: COMMON NORMALS: Normal to inspection, nondistended, normoactive bowel sounds present, Soft to palpation and non-tender PALPATION: Yes Soft to palpation Extremity: COMMON NORMALS: no joint enlargement and no pedal edema Neuro: COMMON NORMALS: patient oriented x3 and moves all extremities S ENSORIUM/ORIENTATION: Yes alert Skin: COMMON NORMALS: no rashes or lesions noted GENERAL SKIN EXAM: no rashes or lesions noted Urinary Catheter Management^: Lopez: Cath Placed During This Visit: yes Reason for Continuing Indwelling Catheter: Accurate Measurement of Urinary Output in Critically Ill Patients Urinary Catheter Date of Insertion: 05/15/21 Urinary Catheter Time of Insertion: 11:56 Data : 06/11/21 03:10 06/11/21 03:10 A&P Assessment and plan (1) Hypoxia: With slight gradual improvement, still on 50 L, but down to 50% FiO2. Early this morning desaturated after disconnection of oxygen supply. Continue tracheostomy care, pulmonary toilet. If oxygen requirement continues to improve, proceed with tracheostomy exchange. Continue to wean down oxygen as tolerating. Has completed treatment with caspofungin. No leukocytosis, afebrile. No sign of sepsis. On therapeutic anticoagulation for PE. Breathing treatments. Continue oral intake as tolerating. Monitor for aspiration. Mobilize with PT, OT. ST. Status: Acute (2) Acute respiratory distress syndrome (ARDS) due to COVID-19 virus: Status: Acute (3) Fungal pneumonia: Completed course of caspofungin. Status: Acute (4) Pulmonary embolism: Continue anticoagulation. Status: Acute (5) Methadone dependence: Methadone resumed. Status: Chronic (6) Hypothyroidism: Status: Chronic Qualifiers: Hypothyroidism type: acquired Qualified Code(s): E03.9 - Hypothyroidism, unspecified (7) Benign essential HTN: Status: Chronic (8) Tracheostomy in place: Continue tracheostomy care. Oxygen support. Wean down as tolerating. Tracheostomy exchange once oxygenation improves further. Status: Acute (9) Pneumothorax: I do not see any pneumothorax. Status: Acute Additional A&P Information Anemia: Had good response to PRBC transfusion. Hemoglobin with some gradual improvement. After his next etiology, ANGELA, ACD. Most likely because of severe malnutrition along with chronic sickness. Vitamin B12, folate are okay. Reticulocyte count had not been collected pretransfusion. Stool for occult blood positive. Protonix 40 mg IV twice daily. Abdominal series without sign of perforation. Peripheral neuropathy: Continue gabapentin. Was started on Requip as well, as per reports has been having restless legs. With improvement. Insomnia: Continue trazodone. Also reported restless legs for which was started on Requip. Continue. History of Vance-en-y gastric bypass --Complicates history, continue supplements Tube feedings, reduce as advancing oral intake. Appreciate nutrition recommendations. Full dose Lovenox will help with DVT prophylaxis. Protonix for PUD prophylaxis. Bowel regimen Full code. Discharge planning: Plans for possible discharge to LTAC. Attestations Medical Necessity Statement*: Continue admission for tracheostomy care, weaning off high oxygen requirement, pending tracheostomy exchange, arrangements for LTAC for continued care, oxygen weaning, rehabilitation. Procedures Arterial Line Size (Gauge): 20 Coding Level of Care Code Acute Cat And Dog Bather for [facility] Diagnoses Hypoxia R09.02 Acute respiratory distress syndrome (ARDS) due to COVID-19 virus U07.1; J80 Fungal pneumonia B49; J17 Pulmonary embolism I26.99 Methadone dependence F11.20 Hypothyroidism E03.9 Hypothyroidism type: acquired Benign essential HTN I10 Tr[address]ostomy [address] Z93.0 Pneumothorax J93.9
[2021-06-11] MEDS: ferrous sulfate EC 325 mg Tablet 300 MG PO ×2 (11:17→17:09)
--- NOTE | 2021-06-11 14:44 | PC.NURSE ---
family in for vist more depressed today states she didnt sleep well last night and is wore out .. attempted to wean somewhat on fio2 unable to tolerate
--- NOTE | 2021-06-11 17:05 | PC.NURSE ---
up to bsc with assist of 2 remains very weak today passing large amt of gas at this time no bm noted
--- NOTE | 2021-06-11 18:03 | NUR.SHIFT ---
Shift Note Frequent safety and comfort rounds continue. Orders and/or nursing care completed as indicated. Patient monitored for response to intervention and treatment(s). Education provided includes[]. Patient and/or hardware supplies sales representative [ResponseToTeaching]. Will continue to monitor. has been up to bsc today and ate part of evening meal.. have noted that she is more drowsy today .
[2021-06-11] MEDS: amitriptyline 25 mg Tablet 100 MG PO (20:16)
[2021-06-11] MEDS: trazodone 150 mg Tablet 75 MG PO (20:16)
[2021-06-12] VITALS (60 sets, daily range): BP systolic 84–132; BP diastolic 57–86; PULSE 77–105; RESP 16–24; TEMP 36.7–37.1; O2SAT 81–98; BMI 28.3
[2021-06-12] MEDS: ipratropium-albuterol 3 mL Neb INHALATION ×6 (03:03→23:21)
[2021-06-12 05:33] LABS: Basophils % 0.2 %; Eosinophils # 0.3 10^3/uL (0.0-0.8); Eosinophils % 6.3 %; Hematocrit 30.6 % (37.0-47.0); Lymphocytes # 1.4 10^3/uL (0.8-4.8); Lymphocytes % 31.4 %; Mean Corpuscular HGB Conc 29.4 g/dL (30.0-36.0); Mean Corpuscular Hemoglobin 25.1 pg (28.0-34.0); Mean Corpuscular Volume 85.5 fl (81-99); Mean Platelet Volume 10.2 fL (7.4-10.4); Monocytes # 0.5 10^3/uL (0.2-0.9); Monocytes % 11.2 %; Neutrophils # 2.24 10^3/uL (1.8-7.7); Neutrophils % 50.2 %; Nucleated Red Blood Cells % 0 %; Platelet Count 134 10^3/cmm (130-400); Red Blood Count 3.58 10^6/uL (4.1-5.3); Red Cell Distribution Width 19.2 % (12.1-15.1); White Blood Count 4.5 10^3/uL (4.0-10.0)
[2021-06-12 06:28] LABS: Alanine Aminotransferase 21 U/L (0-33); Albumin Level 3.1 g/dL (3.5-5.2); Alkaline Phosphatase 105 IU/L (35-105); Anion Gap 9.8 (5-19); Aspartate Amino Transferase 9 U/L (0-32); Blood Urea Nitrogen 5 mg/dL (6-20); Calcium 8.9 mg/dL (8.5-10.5); Carbon Dioxide 35 mmol/L (22-29); Chloride 96 mmol/L (98-107); Globulin 2.6 g/dL (1.3-4.6); Glomerular Filtration Rate 366.1 mL/min (90-130); Glucose 89 mg/dL (65-115); Osmolality Calculated 281 mOsm/kg (285-295); Potassium 3.8 mmol/L (3.5-5.1); Sodium 137 mmol/L (136-145); Total Bilirubin 0.6 mg/dL (0.15-1.2); Total Protein 5.7 g/dL (6.6-8.7)
--- NOTE | 2021-06-12 06:43 | PC.NURSE ---
Shift Note Frequent safety and comfort rounds continue. Orders and/or nursing care completed as indicated. Patient monitored for response to intervention and treatment(s). Education provided includes heated high flow requirements. Patient verbalized understanding of teaching. Right PICC line is saline locked at this time. Patient remains on heated high flow at 50L and 55%. No complaints of pain overnight. Patient alert and oriented x4. Lopez catheter drained 250 mls of dark don urine overnight. Will continue to monitor.
[2021-06-12] MEDS: budesonide 0.5 mg/2 mL Neb INHALATION ×2 (07:57→19:48)
[2021-06-12] MEDS: enoxaparin 80 mg/0.8 mL Syringe SUBCUT ×2 (07:59→19:59)
[2021-06-12] MEDS: levothyroxine 100 mcg SDV 37.5 MCG IVP (07:59)
[2021-06-12] MEDS: polyethylene glycol 3350 Pkt 17 gm PO (07:59)
[2021-06-12] MEDS: gabapentin 300 mg Capsule 600 MG PO ×3 (08:00→20:00)
[2021-06-12] MEDS: ropinirole 0.25 mg Tablet PO ×3 (08:00→20:00)
[2021-06-12] MEDS: methadone 10 mg Tablet 50 MG PO (08:00)
[2021-06-12] MEDS: citalopram 20 mg Tablet PO (08:00)
[2021-06-12] MEDS: zinc gluconate 50 mg Tablet PO (08:00)
[2021-06-12] MEDS: sennosides-docusate Tablet 1 TAB PO (08:00)
[2021-06-12] MEDS: oxybutynin 5 mg Tablet PO ×2 (08:00→17:06)
[2021-06-12] MEDS: folic acid 1 mg Tablet PO (08:00)
[2021-06-12] MEDS: ascorbic acid 500 mg Tablet PO (08:00)
[2021-06-12] MEDS: ferrous sulfate EC 325 mg Tablet 300 MG PO ×2 (08:00→17:06)
[2021-06-12] MEDS: pantoprazole 40 mg SDV IVP ×2 (08:24→19:59)
--- NOTE | 2021-06-12 12:24 | PM.PN ---
Subjective Subjective: Interval history: States breathing is sometimes better than others. Has been noted by nursing staff to be side, appearing depressed. Was glued by daughter yesterday. She tells me also has been trying to make contact by FaceTime. Today noted somewhat somnolent, sleeping through the afternoon yesterday as well. Vitals/I&O/Wt Last Vital Signs Temp 98.8 F 06/12/21 08:00 Pulse 86 06/12/21 12:00 Resp 22 H 06/12/21 11:01 BP 107/64 06/12/21 12:00 Pulse Ox 90 06/12/21 12:00 06/11/21 06/12/21 06/12/21 22:59 06:59 14:59 Intake Total 100 / 450 Output Total 250 / 250 Balance -150 / 200 Weight last 48 hrs Weight 86.835 kg Weight 86.636 kg Physical Exam Const: COMMON NORMALS: no acute distress and patient oriented x3 GENERAL APPEARANCE: cooperative NUTRITIONAL APPEARANCE: overweight ORIENTATION/CONSCIOUSNESS: Yes awake HENMT: COMMON NORMALS: oropharynx normal OTHER: HHF attached to trach Neck/C-Spine: COMMON NORMALS: no JVD Resp: COMMON NORMALS: normal respiratory effort AUSCULTATION: rhonchi (minimal) and other (coarse/bronchial sounds) Cardio: COMMON NORMALS: no JVD, regular rhythm, S1 normal heart sound present, S2 normal heart sound present and No murmurs present (Cardio) RHYTHM: regular rhythm HEART SOUNDS: S1 normal heart sound present and S2 normal heart sound present GI: COMMON NORMALS: Normal to inspection, nondistended, normoactive bowel sounds present, Soft to palpation and non-tender PALPATION: Yes Soft to palpation Extremity: COMMON NORMALS: no joint enlargement and no pedal edema Neuro: COMMON NORMALS: patient oriented x3 and moves all extremities Skin: COMMON NORMALS: no rashes or lesions noted GENERAL SKIN EXAM: no rashes or lesions noted Urinary Catheter Management^: Lopez: Cath Placed During This Visit: yes Reason for Continuing Indwelling Catheter: Accurate Measurement of Urinary Output in Critically Ill Patients Urinary Catheter Date of Insertion: 05/15/21 Urinary Catheter Time of Insertion: 11:56 Data : 06/12/21 05:20 06/12/21 05:20 A&P Assessment and plan (1) Hypoxia: Appears to have now plateaued around requirement of 55 % FiO2. Desaturates easily with exertion. This morning mobilizing to sit in a chair. Continue tracheostomy care, pulmonary toilet. If oxygen requirement continues to improve, proceed with tracheostomy exchange. Continue to wean down oxygen as tolerating. Reassess this coming week for candidacy to proceed to LTAC. Has completed treatment with caspofungin. No leukocytosis, afebrile. No sign of sepsis. On therapeutic anticoagulation for PE. Breathing treatments. Continue oral intake as tolerating. Monitor for aspiration. Mobilize with PT, OT. ST. Status: Acute (2) Acute respiratory distress syndrome (ARDS) due to COVID-19 virus: Status: Acute (3) Fungal pneumonia: Completed course of caspofungin. Status: Acute (4) Pulmonary embolism: Continue anticoagulation. Status: Acute (5) Methadone dependence: Methadone resumed. Somnolent yesterday afternoon, again sleepy today. Additional 10 mg dose on hold. Continues on 50 mg. Status: Chronic (6) Hypothyroidism: Status: Chronic Qualifiers: Hypothyroidism type: acquired Qualified Code(s): E03.9 - Hypothyroidism, unspecified (7) Benign essential HTN: Status: Chronic (8) Tracheostomy in place: Continue tracheostomy care. Oxygen support. Wean down as tolerating. Tracheostomy exchange once oxygenation improves further. Status: Acute (9) Pneumothorax: I do not see any pneumothorax. Status: Acute Additional A&P Information Anemia: Had good response to PRBC transfusion. Hemoglobin overall steady. After multifactorial etiology, ANGELA, ACD. Most likely because of severe malnutrition along with chronic sickness. Vitamin B12, folate are okay. Reticulocyte count had not been collected pretransfusion. Stool for occult blood positive. May benefit from additional investigation after resolution of respiratory failure. Protonix 40 mg IV twice daily. Abdominal series without sign of perforation. Peripheral neuropathy: Continue gabapentin. Was started on Requip as well, as per reports has been having restless legs. With improvement. Insomnia: Continue trazodone. Also reported restless legs for which was started on Requip. Continue. History of Vance-en-y gastric bypass --Complicates history, continue supplements Depression: Continue amitriptyline. Is also on nightly trazodone. Follow-up with behavioral health care. Full dose Lovenox will help with DVT prophylaxis. Protonix for PUD prophylaxis. Bowel regimen Full code. Discharge planning: Plans for possible discharge to LTAC. Attestations Medical Necessity Statement*: Continue admission for management of hypoxic respiratory failure, weaning off oxygen, pending tracheostomy exchange. Disposition planning and arrangements. Procedures Arterial Line Size (Gauge): 20 Coding Level of Care Code Acute Geospatial Imagery Intelligence Analyst for [facility] Diagnoses Hypoxia R09.02 Acute respiratory distress syndrome (ARDS) due to COVID-19 virus U07.1; J80 Fungal pneumonia B49; J17 Pulmonary embolism I26.99 Methadone dependence F11.20 Hypothyroidism E03.9 Hypothyroidism type: acquired Benign essential HTN I10 Tr[address]ostomy [address] Z93.0 Pneumothorax J93.9
--- NOTE | 2021-06-12 18:02 | PC.NURSE ---
Shift Note Frequent safety and comfort rounds continue. Orders and nursing care completed as indicated. Pt up to chair this afternoon for 2 hours with help of physical therapy. Linens changed, patient self bathed. Pt reported burning from catheter that hurt with movement, Dr. Steiner notified. Pt remains on HHF at 45L with FiO2 at 55%. Patient monitored for response to intervention and treatments. Will continue to monitor.
[2021-06-12] MEDS: amitriptyline 25 mg Tablet 100 MG PO (20:00)
[2021-06-12] MEDS: trazodone 150 mg Tablet 75 MG PO (20:00)
[2021-06-13] VITALS (46 sets, daily range): BP systolic 98–127; BP diastolic 59–79; PULSE 73–97; RESP 16–18; TEMP 36.7–37.4; O2SAT 72–100; BMI 27.8
[2021-06-13] MEDS: HYDROcodone-acetaminophen 5-325 mg Tablet 1 TAB PO (03:16)
[2021-06-13] MEDS: ipratropium-albuterol 3 mL Neb INHALATION ×4 (03:17→15:20)
[2021-06-13 05:03] LABS: Basophils % 0.3 %; Eosinophils # 0.2 10^3/uL (0.0-0.8); Eosinophils % 4.3 %; Hematocrit 30.3 % (37.0-47.0); Lymphocytes # 1.1 10^3/uL (0.8-4.8); Lymphocytes % 32.2 %; Mean Corpuscular HGB Conc 29.7 g/dL (30.0-36.0); Mean Corpuscular Volume 84.2 fl (81-99); Monocytes # 0.5 10^3/uL (0.2-0.9); Monocytes % 13.6 %; Neutrophils # 1.68 10^3/uL (1.8-7.7); Neutrophils % 48.7 %; Nucleated Red Blood Cells % 0 %; Platelet Count 149 10^3/cmm (130-400); Red Cell Distribution Width 19.1 % (12.1-15.1); White Blood Count 3.5 10^3/uL (4.0-10.0)
--- NOTE | 2021-06-13 05:13 | PC.NURSE ---
Shift Note Frequent safety and comfort rounds continue. Orders and/or nursing care completed as indicated. Patient monitored for response to intervention and treatment(s). Education provided includes tracheostomy care. Patient verbalizes understanding of teaching. Lopez catheter drained 820 mls of light don urine. Right PICC line is saline locked. No wounds noted at this time. Turned patient Q2 hrs overnight. Patient had one complaint of pain overnight, PRN Hydrocodone was administered. Will continue to monitor.
[2021-06-13 05:33] LABS: Anion Gap 10.8 (5-19); Blood Urea Nitrogen 4 mg/dL (6-20); Calcium 8.9 mg/dL (8.5-10.5); Carbon Dioxide 35 mmol/L (22-29); Chloride 96 mmol/L (98-107); Glomerular Filtration Rate 366.1 mL/min (90-130); Glucose 93 mg/dL (65-115); Osmolality Calculated 283 mOsm/kg (285-295); Potassium 3.8 mmol/L (3.5-5.1); Sodium 138 mmol/L (136-145)
[2021-06-13] MEDS: budesonide 0.5 mg/2 mL Neb INHALATION (07:51)
[2021-06-13] MEDS: zinc gluconate 50 mg Tablet PO (07:59)
[2021-06-13] MEDS: folic acid 1 mg Tablet PO (07:59)
[2021-06-13] MEDS: gabapentin 300 mg Capsule 600 MG PO ×2 (07:59→14:05)
[2021-06-13] MEDS: sennosides-docusate Tablet 1 TAB PO (07:59)
[2021-06-13] MEDS: methadone 10 mg Tablet 50 MG PO (07:59)
[2021-06-13] MEDS: ropinirole 0.25 mg Tablet PO ×2 (07:59→14:05)
[2021-06-13] MEDS: oxybutynin 5 mg Tablet PO ×2 (07:59→17:02)
[2021-06-13] MEDS: citalopram 20 mg Tablet PO (07:59)
[2021-06-13] MEDS: ferrous sulfate EC 325 mg Tablet 300 MG PO ×2 (07:59→17:02)
[2021-06-13] MEDS: polyethylene glycol 3350 Pkt 17 gm PO (08:00)
[2021-06-13] MEDS: pantoprazole 40 mg SDV IVP (08:00)
[2021-06-13] MEDS: enoxaparin 80 mg/0.8 mL Syringe SUBCUT (08:00)
[2021-06-13] MEDS: ascorbic acid 500 mg Tablet PO (08:00)
[2021-06-13] MEDS: levothyroxine 100 mcg SDV 37.5 MCG IVP (08:00)
--- NOTE | 2021-06-13 09:09 | XRR_ITS ---
PROCEDURE INFORMATION: Exam: XR Abdomen Exam date and time: 06/13/2021 9:09 AM Age: 55 years old Clinical indication: Patient HX: History--abdominal pain, covid positive; Additional info: Possible sbo TECHNIQUE: Imaging protocol: XR of the abdomen. Views: 2 Views. Upright and supine views. COMPARISON: CR (ABDOMEN, ) 06/05/2021 2:02 PM FINDINGS: Tubes, catheters and devices: A tracheostomy tube projects in satisfactory position. A right arm PICC is present with the tip projecting in the SVC. Lungs: There are extensive bilateral pulmonary infiltrates which are unchanged. Gastrointestinal tract: There is mild gaseous distention of a few loops of small bowel. Gas is present throughout the colon which is not significantly dilated. The small bowel distention has significantly improved since previous study. Intraperitoneal space: Multiple surgical clips are present in the abdomen. Bones/joints: Unremarkable for age. XR/XR acute abdomen series 11554 IMPRESSION: 1. Stable extensive bilateral pulmonary infiltrates. 2. Small bowel distention has significantly improved since previous study.
--- NOTE | 2021-06-13 09:22 | PC.CHAP ---
Pastoral Care Encounter/Spiritual Assessment Type of Contact [] Declined crop and soil scientist visit [] Patient/Family/Request visit [] Outpatient visit [] Follow-up visit [] Physician referral [] Code/Alert [x] Routine visit [] Staff referral [] Actively dying [] Patient sleeping [] Family support [] [] Out of room [] Palliative care [] [] Receiving care in room [] Pre-surgical visit [] Trauma [] Long length of stay [x] ICU visit [] Other: Relational/Emotional Strength [] Patient feels connected with others/family/visitors/staff [] Distress [] Loneliness/isolation [] Abandonment Spirituality of Patient [x] Person of [place] [] Attends Pentecostal of their [place] [] Believes in Prayer [] Reads Bible or Denominational materials [] There are Spiritual issues to be addressed Trophy Assembler Interventions [x] Prayer [x] Active listening [x] Non-anxious presence [x] Spiritual/emotional support [] Crisis/trauma care [] Spiritual counseling [] Bereavement support [] Provided bereavement packet [] Provided Bible/devotional materials [] Provided toy/stuffed animal, coloring book to patient or family member [] Provided Communion [] Anointing/[place] [] Salvation [x] Completed spiritual assessment [] Other: Impact on Illness or Injury [] Angry [] Fearful [] Anxious [] Often cries [] Exhaustion [] Unable to work [] Unable to attend moravian [] Unable to walk/stand [] Unable to read [] Unable to drive [] Unable to eat/drink [] Unable to sleep [] Unable to be with family [] Patient intubated [] Other: Summary patient continues to be stronger... still have track... difficult to speak, but working hard for recovery Time spent with patient 10 min
--- NOTE | 2021-06-13 10:35 | PC.SOCIAL ---
IMM Updated Updated pt on IMM. No questions voiced. Provided pt a copy. Initialed, dated, & timed copy in chart.
[2021-06-13] MEDS: CLONazepam 0.5 mg Tablet 1 MG PO (11:45)
--- NOTE | 2021-06-13 15:38 | PM.TDS ---
Transfer Summary Providers Date of Admission: 05/15/21 01:42 Date of Discharge: 06/13/21 Attending Provider at Admission: Winter Monterroso MD Attending Provider at Transfer: Abel Joshi MD Consults: Pulmonology: Dr. Crowder Surgery: Dr. Pittman Primary Care Provider: Yaya Myles MD Anticipated Date of Transfer: Anticipated date of transfer: 06/13/21 Receiving Facility & Provider: Receiving Provider: [Dr. Mora] Receiving facility: [[facility]] Diagnoses at Discharge Discharge Diagnosis (1) Hypoxia: Status: Acute (2) Acute respiratory distress syndrome (ARDS) due to COVID-19 virus: Status: Acute (3) Fungal pneumonia: Status: Acute (4) Pulmonary embolism: Status: Acute (5) Methadone dependence: Status: Chronic (6) Hypothyroidism: Status: Chronic Qualifiers: Hypothyroidism type: acquired Qualified Code(s): E03.9 - Hypothyroidism, unspecified (7) Benign essential HTN: Status: Chronic (8) Tracheostomy in place: Status: Acute (9) Pneumothorax: Status: Acute Reason for Visit Reason for Visit: SOB/COVID + Hospital Course Hospital Course Maria Victoria New is a 55 year old female with past medical history of benign hypertension, hypothyroidism, major depressive disorder, methadone dependence, PTSD, gastric sleeve bypass, not vaccinated for COVID-19 who presented to the emergency room with increasing difficulty breathing and low oxygen levels on May 15. She was diagnosed with Covid a couple of days ago. At the time of initial presentation to ED a few days ago, she was having lots of dizziness and had sustained a fall in which she described pain in her ribs. Patient went to the hospital for COVID-19 pneumonia, severe ARDS and was intubated because of severe hypoxia. Patient was admitted to the ICU and was treated with COVID-19 protocol for remdesivir, dexamethasone, empiric antibiotics, nebulization inhalation treatment and proning sessions. Patient had a prolonged hospital stay because of high oxygen requirement. Her hospital stay was complicated by her developing fungal pneumonia for which she complete the treatment with caspofungin, pulmonary embolism without right heart strain for which she was started on full dose anticoagulation. Patient continued to remain high oxygen supplementation requirement for prolonged. Hence pulmonology was consulted and she underwent tracheostomy on June 02, 2021. Post tracheostomy surgery was consulted for PEG tube placement for nutrition. Patient was deemed not a good candidate for PEG tube placement because of history of gastric sleeve bypass surgery. She was seen by physical therapy, Occupational Therapy and speech therapy and gradually and slowly became stronger and was advance her diet accordingly. Her hospital stay was also complicated by occasional bouts of anxiety and depression though she denied any suicidal or homicidal ideation. 1 she was able to tolerate orally her home dose of amitriptyline, Celexa and methadone 10 mg twice daily as needed were restarted which she tolerated well. Because patient continued to require high oxygen supplementation even after being in hospital for 29 days further transfer for LTAC was sought for more aggressive pulmonary rehabilitation to which patient's family, patient and LTAC facility approved. She has been transferred in hemodynamically stable condition for further management and rehabilitation. Physical Exam Narrative: EXAM NARRATIVE: General: No acute distress, AO x3, mildly sedated, GCS: E3 M4 VT, tracheostomy 6 present HEENT: PERRLA, pupils bilaterally equal and reactive Chest: Bilateral coarse crackles present all over the lung olmos, left more than right, equal good air entry bilaterally CVS: S1-S2 regular, no murmurs, no tachycardia, no gallops, no rubs Abdomen: Soft, nontender, no organomegaly, bowel sounds present Neuro: No focal deficits, no facial deformity, AO x3, power 3/5 in all limbs Urinary Catheter Management^: Lopez: Cath Placed During This Visit: yes Reason for Continuing Indwelling Catheter: Accurate Measurement of Urinary Output in Critically Ill Patients Urinary Catheter Date of Insertion: 05/15/21 Urinary Catheter Time of Insertion: 11:56 TS Data Data Completed and Pending: Completed Studies During Hospitalization Category Date Time Status CT angio chest PE protcl 87138 Rout ine Cat Scan 05/15/21 09:[address] angio chest PE protcl [id number] Rout ine Cat Scan 05/30/21 10:19 Completed CXRP [XR chest 1V portable 23335] R outine Exams 05/27/21 10:57 Completed CXRP [XR chest 1V portable 94854] R outine Exams 05/28/21 09:22 Completed CXRP [XR chest 1V portable 33875] S tat Exams 05/22/21 20:16 Completed CXRP [XR chest 1V portable 05890] S tat Exams 05/27/21 17:29 Completed CXRP [XR chest 1V portable 40562] S tat Exams 06/03/21 11:38 Completed XR acute abdomen series 05564 Routi ne Exams 06/05/21 10:36 Completed XR acute abdomen series 48046 Routi ne Exams 06/13/21 09:09 Completed XR chest 1V yeimy ble 36798 Routine Exams 05/17/21 07:00 Completed XR chest 1V yeimy ble 54613 Routine Exams 05/20/21 11:42 Completed XR chest 1V yeimy ble 15161 Routine Exams 05/20/21 13:29 Completed XR chest 1V yeimy ble 12310 Routine Exams 05/23/21 07:00 Completed XR chest 1V yeimy ble 33429 Routine Exams 05/27/21 07:00 Completed XR chest 1V yeimy ble 37935 Routine Exams 05/29/21 07:00 Completed XR chest 1V yeimy ble 06919 Routine Exams 05/31/21 07:00 Completed XR chest 1V yeimy ble 20713 Routine Exams 06/07/21 09:24 Completed XR chest 1V yeimy ble 54223 Routine Exams 06/08/21 06:00 Completed XR chest 1V yeimy ble 65676 Stat Exams 05/15/21 20:06 Completed XR chest 1V yeimy ble 54181 Stat Exams 05/20/21 15:15 Completed XR chest 1V yeimy ble 17614 Stat Exams 05/22/21 22:16 Completed XR chest 1V yeimy ble 96527 Stat Exams 05/23/21 06:38 Completed XR chest 1V yeimy ble 52905 Stat Exams 05/28/21 01:00 Completed XR chest 1V yeimy ble 77743 Stat Exams 05/30/21 09:55 Completed XR chest 1V yeimy ble 56150 Stat Exams 06/02/21 17:59 Completed XR chest 1V yeimy ble 37645 Stat Exams 06/04/21 09:41 Completed XR chest 1V yeimy ble 98667 Stat Exams 06/09/21 03:06 Completed XR chest 1V eyimy ble 05015 Urgent Exams 05/14/21 20:07 Completed XR chest 1V yeimy ble 42227 Urgent Exams 05/28/21 01:30 [place] [address] Stat Exams 05/27/21 17:30 [place] [address] Routin e Ultrasound 05/15/21 13:45 Completed CV. echo complete * 12023 Routine Ultrasound 05/15/21 09:10 Completed Pending at discharge Category Date Time Status Complete Blood Co unt w/Auto AM LABS Lab 06/14/21 04:00 Ordered Complete Blood Co unt w/Auto AM LABS Lab 06/15/21 04:00 Ordered Comprehensive Met abolic Panel AM LA BS Lab 06/14/21 04:00 Ordered Comprehensive Met abolic Panel AM LA BS Lab 06/15/21 04:00 Ordered Miscellaneous Celine t Stat Lab 05/25/21 10:02 Received Labs from last 24 hours 06/13/21 06/13/21 04:42 04:42 WBC 3.5 L RBC 3.60 L Hgb 9.0 L Hct 30.3 L MCV 84.2 MCH 25.0 L MCHC 29.7 L RDW 19.1 H Plt Count 149 MPV 10.0 Neut % (Auto) 48.7 Lymph % (Auto) 32.2 [place] % (Auto) 13.6 Eos % (Auto) 4.3 Baso % (Auto) 0.3 Neut # (Auto) 1.68 L Lymph # (Auto) 1.1 [place] # (Auto) 0.5 Eos # (Auto) 0.2 Baso # (Auto) 0.0 Nucleated RBC % (a uto) 0 Nucleated RBCs # 0.0 Sodium 138 Potassium 3.8 Chloride 96 L Carbon Dioxide 35 H Anion Gap 10.8 BUN 4 L Creatinine 0.2 L GFR Calculation 366.1 H Glucose 93 Calculated Osmolal ity 283 L Calcium 8.9 Addt'l Data from Hospital Stay: Laboratory Results WBC 3.5 10^3/uL (4.0- 10.0) L 06/13/21 04:42 RBC 3.60 10^6/uL (4.1 -5.3) L 06/13/21 04:42 Hgb 9.0 g/dL (11.5-15 .3) L 06/13/21 04:42 Hct 30.3 % (37.0-47.0 ) L 06/13/21 04:42 MCV 84.2 fl (81-99) 06/13/21 04:42 MCH 25.0 pg (28.0-34. 0) L 06/13/21 04:42 MCHC 29.7 g/dL (30.0-3 6.0) L 06/13/21 04:42 RDW 19.1 % (12.1-15.1 ) H 06/13/21 04:42 Plt Count 149 10^3/cmm (130 -400) 06/13/21 04:42 MPV 10.0 fL (7.4-10.4 ) 06/13/21 04:42 Neut % (Auto) 48.7 % 06/13/21 04:42 Lymph % (Auto) 32.2 % 06/13/21 04:42 [place] % (Auto) 13.6 % 06/13/21 04:42 Eos % (Auto) 4.3 % 06/13/21 04:42 Baso % (Auto) 0.3 % 06/13/21 04:42 Neut # (Auto) 1.68 10^3/uL (1.8 -7.7) L 06/13/21 04:42 Lymph # (Auto) 1.1 10^3/uL (0.8- 4.8) 06/13/21 04:42 [place] # (Auto) 0.5 10^3/uL (0.2- 0.9) 06/13/21 04:42 Eos # (Auto) 0.2 10^3/uL (0.0- 0.8) 06/13/21 04:42 Baso # (Auto) 0.0 10^3/uL (0.0- 0.1) 06/13/21 04:42 Nucleated RBC % (a uto) 0 % 06/13/21 04:42 Nucleated RBCs # 0.0 /100WBC 06/13/21 04:42 ESR 16 mm/hr (0-15) H 06/03/21 04:25 PT 14.20 SECONDS (12 .1-14.9) 05/25/21 05:35 INR 1.07 (0.8-1.2) 05/25/21 05:35 APTT 28.4 SECONDS (23. 9-36.7) 05/17/21 07:25 Fibrinogen 399 mg/dL (174-49 8) 05/15/21 05:49 D-Dimer 1.53 ug/mIFEU (0- 0.59) H 05/31/21 05:00 Specimen Type Arterial 06/03/21 04:25 Sample Site Radial, left 06/03/21 04:25 ABG pH 7.47 (7.35-7.45) H 06/03/21 04:25 ABG pCO2 40.8 mmHg (35-45) 06/03/21 04:25 ABG pO2 64.8 mmHg (80.0-1 00.0) L 06/03/21 04:25 ABG HCO3 29.5 mmol/L (22-2 6) H 06/03/21 04:25 ABG O2 Saturation 93.5 06/03/21 04:25 ABG Base Excess 5.4 mmol/L (-2.0- 2.0) H 06/03/21 04:25 Rohit Test Pos 06/03/21 04:25 A-a O2 Gradient 68.5 mmHg (5-10) H 06/03/21 04:25 Hematocrit 32.0 % (37-47) L 06/03/21 04:25 Hgb O2 Saturation 91.5 % (95-100) L 06/03/21 04:25 Carboxyhemoglobin 1.3 %THgb (0.4-20 .1) 06/03/21 04:25 Methemoglobin 0.9 % (0.4-1.5) 06/03/21 04:25 Total Hemoglobin 10.4 g/dL (12-16) L 06/03/21 04:25 Sodium 142.0 mmol/L (131 -143) 06/03/21 04:25 Potassium 3.7 mmol/L (3.5-5 .0) 06/03/21 04:25 Glucose 157.0 mg/dL (70-1 15) H 06/03/21 04:25 Ionized Calcium 1.2 mmol/L (1.1-1 .4) 06/03/21 04:25 O2 Delivery Device Vent 06/03/21 04:25 O2 Liters/Min 15.0 % 05/14/21 20:23 Mechanical Rate 18.0 06/01/21 04:30 FiO2 90.0 % 06/03/21 04:25 Tidal Volume 0.44 06/03/21 04:25 PEEP 10.0 cmH20 06/03/21 04:25 Asphalt Tamping Machine Operator ID Hinja 06/03/21 04:25 Sodium 138 mmol/L (136-1 45) 06/13/21 04:42 Potassium 3.8 mmol/L (3.5-5 .1) 06/13/21 04:42 Chloride 96 mmol/L (98-107 ) L 06/13/21 04:42 Carbon Dioxide 35 mmol/L (22-29) H 06/13/21 04:42 Anion Gap 10.8 (5-19) 06/13/21 04:42 BUN 4 mg/dL (6-20) L 06/13/21 04:42 Creatinine 0.2 mg/dL (0.5-0. 9) L 06/13/21 04:42 GFR Calculation 366.1 mL/min (90- 130) H 06/13/21 04:42 Glucose 93 mg/dL (65-115) 06/13/21 04:42 POC Glucose 109 mg/dL (70-110 ) 06/04/21 20:00 Calculated Osmolal ity 283 mOsm/kg (285- 295) L 06/13/21 04:42 Lactic Acid 1.8 mmol/L (0.5-2 .2) 05/14/21 20:03 Lactate 1.0 mmol/L (0.5-2 .2) 05/27/21 06:15 Calcium 8.9 mg/dL (8.5-10 .5) 06/13/21 04:42 Phosphorus 2.6 mg/dL (2.5-4. 5) 05/26/21 04:11 Magnesium 2.1 mg/dL (1.7-2. 3) 05/27/21 06:15 Iron 11 ug/dL (37-145) L 05/15/21 15:36 TIBC 364 mcg/dl 05/15/21 15:36 % Saturation 3.0 % (20-50) L 05/15/21 15:36 Unsat Iron Binding 353 ug/dL (112-34 7) H 05/15/21 15:36 Ferritin 61 ng/mL (15-150) 05/30/21 03:37 Total Bilirubin 0.6 mg/dL (0.15-1 .2) 06/12/21 05:20 AST 9 U/L (0-32) 06/12/21 05:20 ALT 21 U/L (0-33) 06/12/21 05:20 Alkaline Phosphata se 105 IU/L (35-105) 06/12/21 05:20 Lactate Dehydrogen ase 310 U/L (135-214) H 05/30/21 03:10 Creatine Kinase 38 U/L (26-192) 05/25/21 05:35 Creatine Kinase Cancelled 05/25/21 05:35 Troponin T Baselin e 9 ng/L (0-10) 05/21/21 16:59 Troponin T 120 Min osage 12.02 ng/L (0-10) H 05/21/21 19:12 Delta Troponin T 3.02 ABS# (0-10) 05/21/21 19:12 Troponin T Hi Sens 6Hr 15.44 ng/L (0-10) H 05/21/21 23:01 Troponin T Hi Sens 6Hr Delta 6.44 ng/L (0-12) 05/21/21 23:01 C-Reactive Protein 0.3 mg/L (0.0-4.9 ) 06/03/21 04:25 NT-Pro-B Natriuret Pep 83 pg/mL (0-125) 05/30/21 03:10 Total Protein 5.7 g/dL (6.6-8.7 ) L 06/12/21 05:20 Albumin 3.1 g/dL (3.5-5.2 ) L 06/12/21 05:20 Globulin 2.6 g/dL (1.3-4.6 ) 06/12/21 05:20 Vitamin B12 1437 pg/mL (232-1 245) H 05/15/21 15:36 Folate 14.3 ng/mL (4.8-3 7.3) 05/15/21 15:36 Procalcitonin 0.06 ng/mL (0-0.5 ) 05/31/21 05:00 TSH 1.32 uIU/mL (0.27 -4.20) 05/21/21 16:59 Random Cortisol 4.08 ug/dL (2.47- 19.5) 05/15/21 15:36 Vancomycin Trough 11.1 ug/mL (10-15 ) 05/28/21 03:45 Beta-(1,3)-D-Gluca n Cancelled 05/30/21 03:37 B-(1,3)-D-Glucan I ntrp Cancelled 05/30/21 03:37 Misc Test Referenc e See comment 05/16/21 08:00 Blood Type B Positive 06/05/21 11:34 Rho(D) Type Positive 06/05/21 11:34 Antibody Screen Negative 06/05/21 11:34 Crossmatch See Detail 06/05/21 11:34 Impressions Venous Duplex 05/15/21 13:45 IMPRESSION: No evidence of lower extremity deep vein thrombosis. Soft Tissue Neck X-Ray 05/27/21 17:30 IMPRESSION: Extensive soft tissue emphysema involving all of the soft tissue structures within the field of view from the skull base distally. Chest CTA 05/30/21 10:19 IMPRESSION: 1. Acute segmental and subsegmental pulmonary emboli in the right lower lobe. 2. Commonly reported imaging features of (COVID-19) pneumonia are present. Other processes such as influenza pneumonia and organizing pneumonia, as can be seen with drug toxicity and connective tissue disease, can cause a similar imaging pattern. 3. Trace right pleural effusion. Radiation Dose CTDIVOL = (mGy): DLP = 584.65 (mGy-cm) Chest X-Ray 06/09/21 03:06 IMPRESSION: Persistent bilateral airspace opacities. Chest/Abdomen X-ray 06/13/21 09:09 IMPRESSION: 1. Stable extensive bilateral pulmonary infiltrates. 2. Small bowel distention has significantly improved since previous study. Vitals: Last Vital Signs Temp 98.5 F 06/13/21 08:00 Pulse 83 06/13/21 15:23 Resp 18 06/13/21 15:22 BP 112/70 06/13/21 14:00 Pulse Ox 95 06/13/21 15:22 TS Medications Medications Home Medications oxybutynin chloride 5 mg tablet 5 mg PO BID 10/08/19 [History Confirmed 05/15/21] omeprazole 20 mg PO BID 10/17/19 [History Confirmed 05/15/21] gabapentin 600 mg tablet 1,200 mg PO TID 11/19/19 [History Confirmed 05/15/21] ibuprofen [Advil] 400 mg PO Q6H PRN 03/23/20 [History Confirmed 05/15/21] clonazepam 1 mg tablet 1 mg PO BID PRN tab 08/10/20 [History Confirmed 05/15/21] albuterol sulfate [ProAir HFA] 2 puff INHALATION QID PRN 05/12/21 [History Confirmed 05/15/21] amitriptyline 200 mg PO BEDTIME 05/12/21 [History Confirmed 05/15/21] citalopram 20 mg PO BEDTIME 05/12/21 [History Confirmed 05/15/21] lactulose 10 g PO TID PRN 05/12/21 [History Confirmed 05/15/21] levothyroxine 75 mcg PO QAM 05/12/21 [History Confirmed 05/15/21] losartan 25 mg PO QAM 05/12/21 [History Confirmed 05/15/21] methadone 75 mg PO DAILY 05/12/21 [History Confirmed 05/15/21] Active Medications Acetaminophen (Acetaminophen 325 Mg Tablet) 650 mg PO Q6H PRN PRN Reason: MILD PAIN Last Admin: 06/10/21 19:07 Dose: 650 mg Documented by: Hydrocodone Bitart/Acetaminophen (Hydrocodone-Acetaminophen 5-325 Mg Tablet) 1 tab PO Q12H PRN PRN Reason: MODERATE PAIN Last Admin: 06/13/21 03:16 Dose: 1 tab Documented by: Albuterol Sulfate (Albuterol 8 Gm Mdi) 2 puff INHALATION Q4H.RESPIRATORY PRN PRN Reason: SHORTNESS OF BREATH Last Admin: 05/19/21 08:30 Dose: 2 puff Documented by: Albuterol/Ipratropium (Ipratropium-Albuterol 3 Ml Neb) 3 ml INHALATION Q4H.RESPIRATORY BIA Last Admin: 06/13/21 15:20 Dose: 3 ml Documented by: Alprazolam (Alprazolam 0.5 Mg Tablet) 0.5 mg PO TID PRN PRN Reason: ANXIETY Last Admin: 06/07/21 13:07 Dose: 0.5 mg Documented by: Amitriptyline HCl (Amitriptyline 25 Mg Tablet) 100 mg PO BEDTIME BIA Last Admin: 06/12/21 20:00 Dose: 100 mg Documented by: Artificial Tears (Artificial Tears Op Oint 3.5 Gm) 1 applic EYE-BOTH PRN PRN PRN Reason: DRY EYE(S) Ascorbic Acid (Ascorbic Acid 500 Mg Tablet) 500 mg PO DAILY BIA Last Admin: 06/13/21 08:00 Dose: 500 mg Documented by: Atropine Sulfate (Atropine 0.1 Mg/Ml Syr 10 Ml) 0.5 mg IVP Q5MIN PRN PRN Reason: symptomatic bradycardia, call chencho before adminitering Budesonide (Budesonide 0.5 Mg/2 Ml Neb) 0.5 mg INHALATION BID.RESPIRATORY [facility] Last Admin: 06/13/21 07:51 Dose: 0.5 mg Documented by: Citalopram Hydrobromide (Citalopram 20 Mg Tablet) 20 mg PO DAILY [facility] Last Admin: 06/13/21 07:59 Dose: 20 mg Documented by: Clonazepam (Clonazepam 0.5 Mg Tablet) 1 mg PO BID PRN PRN Reason: Anxiety Last Admin: 06/13/21 11:45 Dose: 1 mg Documented by: Enoxaparin Sodium (Enoxaparin 80 Mg/0.8 Ml Syringe) 80 mg SUBCUT Q12H [facility] Last Admin: 06/13/21 08:00 Dose: 80 mg Documented by: Ferrous Sulfate (Ferrous Sulfate Ec 325 Mg Tablet) 300 mg PO BIDWM [facility] Last Admin: 06/13/21 07:59 Dose: 300 mg Documented by: Folic Acid (Folic Acid 1 Mg Tablet) 1 mg PO DAILY [facility] Last Admin: 06/13/21 07:59 Dose: 1 mg Documented by: Gabapentin (Gabapentin 300 Mg Capsule) 600 mg PO TID [facility] Last Admin: 06/13/21 14:05 Dose: 600 mg Documented by: Haloperidol Lactate (Haloperidol Inj 5 Mg/Ml Inj 1 Ml) 0.5 mg IVP Q8H PRN PRN Reason: AGITATION Last Admin: 06/06/21 23:44 Dose: 0.5 mg Documented by: Hydralazine HCl (Hydralazine 20 Mg/Ml Inj 1 Ml) 10 mg IVP Q4H PRN PRN Reason: FOR SBP>180, or DBP>100 Last Admin: 05/23/21 16:51 Dose: 10 mg Documented by: dexmedeTOMIDine 0.9 % NaCL (Dexmedetomidine-Ns) 400 mcg in 100 mls @ 0 mls/hr IV .Q0M [facility]; Protocol Last Titration: 06/06/21 09:40 Dose: 0 mcg/kg/hr, 0 mls/hr Documented by: Labetalol HCl (Labetalol 5 Mg/Ml Sdv 20ml) 10 mg IVP Q4H PRN PRN Reason: HYPERTENSION Last Admin: 05/23/21 17:15 Dose: 10 mg Documented by: Lanolin (Lanolin Oint 7 Gm) 1 applic TOPICAL PRN PRN PRN Reason: DRYNESS Last Admin: 05/26/21 14:57 Dose: 1 applic Documented by: Levothyroxine Sodium (Levothyroxine 100 Mcg Sdv) 37.5 mcg IVP DAILY [facility] Last Admin: 06/13/21 08:00 Dose: 37.5 mcg Documented by: Methadone HCl (Methadone 10 Mg Tablet) 10 mg PO 1800 PRN PRN Reason: PAIN Methadone HCl (Methadone 10 Mg Tablet) 10 mg PO DAILY [facility] Non-Formulary Route - Milrinone 200 Mcg/Ml 0 each INHALATION Q4H PRN PRN Reason: RESP DILATION Last Admin: 05/22/21 23:16 Dose: 1 each Documented by: Ondansetron HCl (Ondansetron 2 Mg/Ml Sdv 2 Ml) 4 mg IVP Q6H PRN PRN Reason: NAUSEA AND VOMITING Last Admin: 06/09/21 03:04 Dose: 4 mg Documented by: Oxybutynin Chloride (Oxybutynin 5 Mg Tablet) 5 mg PO BID [facility] Last Admin: 06/13/21 07:59 Dose: 5 mg Documented by: Pantoprazole Sodium (Pantoprazole 40 Mg Sdv) 40 mg IVP Q12H [facility] Last Admin: 06/13/21 08:00 Dose: 40 mg Documented by: Polyethylene Glycol (Polyethylene Glycol 3350 Pkt 17 Gm) 17 gm PO DAILY [facility] Last Admin: 06/13/21 08:00 Dose: 17 gm Documented by: Ropinirole HCl (Ropinirole 0.25 Mg Tablet) 0.25 mg PO TID [facility] Last Admin: 06/13/21 14:05 Dose: 0.25 mg Documented by: Senna/Docusate Sodium (Sennosides-Docusate Tablet) 1 tab PO DAILY [facility] Last Admin: 06/13/21 07:59 Dose: 1 tab Documented by: Trazodone HCl (Trazodone 150 Mg Tablet) 75 mg PO BEDTIME [facility] Last Admin: 06/12/21 20:00 Dose: 75 mg Documented by: Zinc Gluconate (Zinc Gluconate 50 Mg Tablet) 50 mg PO DAILY [facility] Last Admin: 06/13/21 07:59 Dose: 50 mg Documented by: Discharge Plan Discharge Patient Disposition: Xfer LT Condition: Fair Prescriptions: No Action gabapentin 600 mg tablet 1,200 mg PO TID RF: 0 oxybutynin chloride 5 mg tablet 5 mg PO BID RF: 0 clonazepam 1 mg tablet 1 mg PO BID PRN (Reason: Anxiety) RF: 0 ibuprofen [Advil] 200 mg Tablet 400 mg PO Q6H PRN (Reason: Pain) RF: 0 omeprazole 20 mg Capsule,Delayed Release(Dr/Ec) 20 mg PO BID RF: 0 methadone 10 mg Tablet 75 mg PO DAILY RF: 0 levothyroxine 75 mcg tablet 75 mcg PO QAM RF: 0 citalopram 20 mg tablet 20 mg PO BEDTIME RF: 0 losartan 25 mg tablet 25 mg PO QAM RF: 0 albuterol sulfate [ProAir HFA] 90 mcg/actuation Hfa Aerosol Inhaler 2 puff INHALATION QID PRN (Reason: Shortness Of Breath) RF: 0 amitriptyline 100 mg tablet 200 mg PO BEDTIME RF: 0 lactulose 10 gram/15 mL solution 10 g PO TID PRN (Reason: Constipation) RF: 0 Discharge Orders: Transfer Out of Facility (Order); Ordered 06/13/21 Ordered By: Abel Joshi Discharge Diet: Advance as tolerated Discharge Activity: Resume usual activity Patient Instructions: Opioid Safety, GI Discharge Instructions Transfer Attestations Time Spent in Transfer Care*: critical care time Critical Care Time (min): 80 Quality Metrics Clinical Quality Measures: During this hospital stay, did patient experience: VTE Contraindication to Overlap Therapy: Overlap therapy prescribed VTE Discharge Education: Education about anticoagulant therapy/Care Notes given Deep Vein Thrombosis/Pulmonary Embolism Present on Admission: Yes Contraindication to Pharm VTE Prophylaxis: VTE prophylaxis given Documentation of Mechanical Device: Venous foot pump, device Coding Level of Care Code Acute Director Customer for [facility] Fwd Diagnoses Hypoxia R09.02 Acute respiratory distress syndrome (ARDS) due to COVID-19 virus U07.1; J80 Fungal pneumonia B49; J17 Pulmonary embolism I26.99 Methadone dependence F11.20 Hypothyroidism E03.9 Hypothyroidism type: acquired Benign essential HTN I10 Tracheostomy in place Z93.0 Pneumothorax J93.9
--- NOTE | 2021-06-13 15:55 | PC.NURSE ---
Report called to [facility] in [place] to Noris Rao RN. [facility]
[2021-06-13] MEDS: magnesium hydroxide 30 mL UDC PO (18:06)
--- NOTE | 2021-06-13 19:35 | PC.NURSE ---
Patient Transferred by EMS to LTC Patient left facility at 1935 with EMS to be transferred to [facility]. All belongings including; clothing, phone, dentures, and purse taken with patient by EMS. Patient alert and oriented x4.
--- NOTE | 2021-06-16 09:37 | PC.SOCIAL ---
follow up call made, spoke with patients nurse at [facility]. She reports pt is doing well, patient is getting up into chair. Denies questions or concerns.
== END 2021-06-13 19:35 | DRG 4 ==
LOC: ER 21:02 → MS 2A 05-15 03:45 → ICU 05-15 13:32 → MS 2A 05-19 14:35 → ICU 05-20 14:28
PROVIDERS: Family Medicine; Hospitalist; Internal Medicine; Admitting Provider Hospitalist; Emergency Provider Emergency Medicine; PCP Family Medicine; Visit Provider Student in an Organized Health Care Education/Training Program
DX: U07.1 COVID-19 (principal); J12.82 Pneumonia due to coronavirus disease 2019; J80 Acute respiratory distress syndrome; I26.99 Other pulmonary embolism without acute cor pulmonale; J16.8 Pneumonia due to other specified infectious organisms; E43 Unspecified severe protein-calorie malnutrition; I10 Essential (primary) hypertension; E03.9 Hypothyroidism, unspecified; G62.9 Polyneuropathy, unspecified; Z98.84 Bariatric surgery status; Z96.641 Presence of right artificial hip joint; Z79.891 Long term (current) use of opiate analgesic; D64.9 Anemia, unspecified; F41.1 Generalized anxiety disorder; F43.12 Post-traumatic stress disorder, chronic; J98.2 Interstitial emphysema; F32.9 Major depressive disorder, single episode, unspecified; I73.9 Peripheral vascular disease, unspecified; Z68.27 Body mass index [BMI] 27.0-27.9, adult; G47.00 Insomnia, unspecified; G25.81 Restless legs syndrome
CPT/HCPCS: 36415; 36416; 36430; 36569; 36592; 36600; 51702; 70360; 71045; 71275; 74022; 80048; 80051; 80053; 80202; 80306; 81003; 82274; 82330; 82533; 82550; 82607; 82728; 82746; 82803; 82805; 82962; 83540; 83550; 83605; 83615; 83735; 83880; 84100; 84145; 84443; 84484; 85014; 85018; 85025; 85378; 85384; 85610; 85651; 85730; 86140; 86403; 86850; 86900; 86920; 87040; 87070; 87106; 87205; 87426; 87449; 87493; 87641; 92526; 92610; 93005; 93306; 93970; 94002; 94003; 94640; 94660; 94799; 96361; 96365; 96372; 96374; 96375; 97110; 97161; 97166; 97530; 97535; 99284; 99291; C1751; C9113; J0360; J0637; J0692; J0743; J1100; J1170; J1450; J1630; J1650; J1885; J1940; J1956; J2060; J2250; J2260; J2310; J2405; J2704; J3010; J3262; J3370; J3480; J3490; J3535; J7030; J7040; J7050; J7626; P9058; Q9967

== ENCOUNTER 2021-07-14 11:58 | Emergency (ER) | payer MEDICARE, MEDICAID, SELFPAY ==
[2021-01-25 16:20] VITALS: BP 104/59; BMI 34.0
[2021-07-14 12:05] VITALS: BP 113/75; PULSE 103; RESP 16; TEMP 36.8; O2SAT 91
--- NOTE | 2021-07-14 12:13 | W.ED.GENADLT ---
HPI - General Adult General: Chief complaint: General Medical Stated complaint: Pain in Hands and Feet Time Seen by Provider: 07/14/21 12:05 History of Present Illness: HPI narrative: Patient is a 55-year-old female comes to the ED with chronic pain in hands and feet. Patient has chronic neuropathy and goes to the pain clinic. She states that the pain clinic refused to give patient her meds today and told her to come to the ED to get checked out. She states they wanted us to check her blood pressure. Patient denies any other complaints besides her neuropathy pain. Associated symptoms: Deny chest pain, dyspnea, headache(s), nausea, rash, palpitations or vomiting Review of Systems Const: Denies: fever(s), chills or fatigue Eyes: Denies: change in vision or eye discomfort ENMT: Denies: throat pain, odynophagia, nasal discharge or nasal congestion Card: Denies: chest pain, palpitations, edema, swelling of feet/ankles, dyspnea on exertion or orthopnea Resp: Denies: dyspnea, productive cough or non-productive cough GI: Denies: abdominal pain, nausea, vomiting, diarrhea, constipation or hematochezia : Denies: flank pain, dysuria or hematuria Musc: Reports: extremity pain (Chronic neuropathy pain in extremities.); Denies: neck pain, back pain or extremity swelling Skin/Breast: Denies: rash or new lesions Neuro: Denies: headache(s), numbness in extremities or weakness in extremities PFS ED PFSH: Medical History Benign essential HTN Cataract COVID-19 Fungal pneumonia Generalized anxiety disorder Hx of chest pain Hx of shortness of breath Hypothyroidism Incontinence in female Major depressive disorder, recurrent severe without psychotic features Methadone dependence Microcytic anemia Neuropathy Other urethral stricture, female Post-traumatic stress disorder, chronic Psychiatric care Respiratory failure Surgical History H/O gastric bypass H/O: hysterectomy History of amputation of great toe of both feet History of cholecystectomy History of esophagogastroduodenoscopy (EGD) History of reconstructive repair of rectocele History of total right hip replacement Hx of appendectomy Family History Father , AT AGE 62 Cancer PROSTATE CANCER Grandmother Stroke Denies family history of Anesthesia complication Bleeding disorder Social History Smoking and tobacco status: never smoked Second hand smoke exposure: No Alcohol intake: never Adopted: Yes (Grandparents adopted her.) Caregiver/support person: No Lives independently: Yes Household members: none Housing: Apartment Marital status: / Number of children: 2 Number of grandchildren: 4 Highest education level completed: Associate Degree: Occupational, Technical, Vocational Program service: No Current occupational status: disabled Current occupational exposures/hazards: No Pets and animals: Yes Pets & animals: cat(s) Leisure activites: reading and other Leisure activities details: puzzles Sexually active: No Current gender identity: Female Ekta/Yarsani: Zoroastrian Special ekta needs: No Agree to transfusion: Yes Financial difficulty paying for basics: Not Very Hard Female Reproductive History: Para: 2 Spontaneous abortions: No Physical Exam Const: COMMON NORMALS: no acute distress, patient oriented x3 and alert GENERAL APPEARANCE: cooperative and comfortable HENMT: COMMON NORMALS: normocephalic HEAD & SCALP: normocephalic MOUTH: Normal oral and palatal mucosa present THROAT: posterior oropharynx normal and uvula midline Neck/C-Spine: COMMON NORMALS: supple GENERAL: Yes normal visual inspection Resp: COMMON NORMALS: normal respiratory effort, No retractions, No use of accessory muscles and clear to auscultation bilaterally AUSCULTATION: clear to auscultation bilaterally Cardio: COMMON NORMALS: regular rate, regular rhythm, S1 normal heart sound present, S2 normal heart sound present, No gallops present (Cardio), No clicks present (Cardio), No murmurs present (Cardio) and Peripheral pulses 2+ throughout RATE: regular rate RHYTHM: regular rhythm HEART SOUNDS: S1 normal heart sound present and S2 normal heart sound present PERIPHERAL PULSES: Peripheral pulses 2+ throughout GI: COMMON NORMALS: Normal to inspection, nondistended, normoactive bowel sounds present, Soft to palpation, non-tender and no masses PALPATION: Yes Soft to palpation : COMMON NORMALS: Yes no CVA tenderness BLADDER/KIDNEY EXAM: Yes no CVA tenderness Back/Pelvis: COMMON NORMALS: no CVA tenderness Extremity: COMMON NORMALS: normal to inspection Neuro: COMMON NORMALS: patient oriented x3 and moves all extremities SENSORIUM/ORIENTATION: Yes alert Skin: GENERAL SKIN EXAM: dry skin Course Vital Signs: Vital signs: Vital Signs Temperature 98.5 F 07/14/21 12:38 Pulse Rate 98 07/14/21 12:38 Respiratory Rate 16 07/14/21 12:38 Blood Pressure 101/67 07/14/21 12:38 Pulse Oximetry 94 07/14/21 12:38 MDM - General Adult MDM Narrative: Medical decision making narrative: Patient is a 55-year-old female comes to the ED with chronic pain and sees pain care clinic. Patient was told by pain care clinic she needs to come to urgent care to be checked out before she can be seen by pain care clinic. She came here to the ED instead. Patient has normal vitals and normal exam. Patient was discharged home and told to follow-up with pain care clinic for further evaluation. Discharge Plan Discharge Patient Disposition: Home Clinical Impression: Normal exam Condition: Stable Prescriptions: No Action gabapentin 600 mg tablet 1,200 mg PO TID RF: 0 oxybutynin chloride 5 mg tablet 5 mg PO BID RF: 0 clonazepam 1 mg tablet 1 mg PO BID PRN (Reason: Anxiety) RF: 0 ibuprofen [Advil] 200 mg Tablet 400 mg PO Q6H PRN (Reason: Pain) RF: 0 omeprazole 20 mg Capsule,Delayed Release(Dr/Ec) 20 mg PO BID RF: 0 methadone 10 mg Tablet 75 mg PO DAILY RF: 0 levothyroxine 75 mcg tablet 75 mcg PO QAM RF: 0 citalopram 20 mg tablet 20 mg PO BEDTIME RF: 0 losartan 25 mg tablet 25 mg PO QAM RF: 0 albuterol sulfate [ProAir HFA] 90 mcg/actuation Hfa Aerosol Inhaler 2 puff INHALATION QID PRN (Reason: Shortness Of Breath) RF: 0 amitriptyline 100 mg tablet 200 mg PO BEDTIME RF: 0 lactulose 10 gram/15 mL solution 10 g PO TID PRN (Reason: Constipation) RF: 0 Discharge Orders: Discharge ED (Routine); Ordered 07/14/21 Ordered By: Abel Cheng Referrals: Yaya Myles MD [Primary Care Provider] - Discharge Diet: Regular Discharge Activity: Resume usual activity Activity Restrictions/Additional Instructions: Follow-up with medical provider as directed. Continue taking all home medications as previously prescribed. Return to the ER or your medical provider if condition worsens. Please read and understand discharge instructions. Thank you for choosing [facility] for your healthcare needs today. Please realize this is an emergency room and that we are providing you with a medical screening exam and this may not be complete and all inclusive of all the testing and or work up that you may need to determine your ailment or severity of your illness. It is very important that you follow up as instructed or that you return to the Emergency Department should you have concerns or if your condition changes or worsens in any way. Coding Level of Care Code ED Embedded Software Engineer for Barbra Keith Exam Comprehensive
[2021-07-14 12:38] VITALS: BP 101/67; PULSE 98; RESP 16; TEMP 36.9; O2SAT 94
== END 2021-07-14 13:26 | disposition home or self-care (01) ==
PROVIDERS: Emergency Provider Physician Assistant; PCP Family Medicine
DX: Z03.89 Encounter for observation for other suspected diseases and conditions ruled out (principal); Z79.891 Long term (current) use of opiate analgesic; I10 Essential (primary) hypertension
CPT/HCPCS: 99281

== ENCOUNTER 2021-07-30 18:53 | Emergency (ER) | payer MEDICARE, MEDICAID, SELFPAY ==
[2021-01-25 16:20] VITALS: BP 104/59; BMI 34.0
[2021-07-30] VITALS (26 sets, daily range): BP systolic 118–157; BP diastolic 79–99; PULSE 86–121; RESP 16–27; TEMP 37.1; O2SAT 92–96; BMI 27.6
--- NOTE | 2021-07-30 19:21 | CTR_ITS ---
PROCEDURE INFORMATION: Exam: CT Head Without Contrast Exam date and time: 07/30/2021 7:21 PM Age: 55 years old Clinical indication: Pain; Headache not specified; Additional info: Headache, weakness TECHNIQUE: Imaging protocol: Computed tomography of the head without contrast. Radiation optimization: All CT scans at this facility use at least one of these dose optimization techniques: automated exposure control; mA and/or kV adjustment per patient size (includes targeted exams where dose is matched to clinical indication); or iterative reconstruction. COMPARISON: CT head wo con* [id number] 12/18/2020 10:53 PM RADIATION DOSE METRICS: Total DLP (mGy-cm): 760.87 FINDINGS: Brain: Unremarkable. No hemorrhage. No significant white matter disease. No edema. Cerebral ventricles: No ventriculomegaly. Paranasal sinuses: Visualized sinuses are unremarkable. No fluid levels. Mastoid air cells: Unremarkable as visualized. No mastoid effusion. Bones/joints: Unremarkable. No acute fracture. Soft tissues: Unremarkable. CT/CT head wo con* [id number] IMPRESSION: 1. No acute intracranial abnormality demonstrated. 2. Previously noted right sphenoid sinus disease, seen on 12/18/2020, has resolved. 3. No new abnormality noted when compared to the previous study. Radiation Dose CTDIVOL = (mGy): DLP = 760.87 (mGy-cm)
--- NOTE | 2021-07-30 19:21 | XRR_ITS ---
PROCEDURE INFORMATION: Exam: XR Chest Exam date and time: 07/30/2021 7:21 PM Age: 55 years old Clinical indication: Shortness of breath; Patient HX: C/O SOB weakness and ZALDIVAR post covid TECHNIQUE: Imaging protocol: XR of the chest. Views: 1 view. COMPARISON: CR XR chest 1V portable [id number] 06/09/2021 3:31 AM FINDINGS: Lungs: Mild increased interstitial lung markings. Mild ground-glass densities at the lung bases. Pleural spaces: No pleural effusion. No pneumothorax. Heart/Mediastinum: No cardiomegaly. Bones/joints: Degenerative spine changes are noted. XR/XR chest 1V portable [id number] IMPRESSION: 1. Mild increased interstitial lung markings. Mild ground-glass densities at the lung bases. 2. Lung aeration has improved when compared to 06/09/2021. Radiation Dose CTDIVOL = (mGy): DLP = (mGy-cm)
--- NOTE | 2021-07-30 19:21 | W.ED.HA ---
HPI - Headache General: Chief Complaint: Headache Stated Complaint: post COVID/ headache Time Seen by Provider: 07/30/21 18:59 History of Present Illness: HPI Narrative: 55-year-old female who had a 2 months hospital and LTAC stay with COVID-19. She was released around 5 weeks ago. She has been home. She complains of a headache for the past 4 days, and generalized weakness. She denies fevers or chills she denies worsening shortness of breath, in fact she has been off of her oxygen for the past couple of days most of the time, as her pulse ox has stayed up above 90. She denies any vision problems, language problems, focal weakness. MD elicited complaint: headache Pertinent past history: other Onset (ago): day(s) (4) Onset description: gradually Location: generalized Severity: moderate Quality & Timing: aching, throbbing and constant Exacerbating factors: light Relieving factors: nothing Context: occurred at rest Associated symptoms: Reports photophobia and weakness; Deny chest pain, confusion, cough, diaphoresis, eye pain, loss of vision, neck stiffness, short of breath or vomiting Treatments prior to arrival: acetaminophen Review of Systems Const: Denies: diaphoresis ENMT: Denies: throat pain or swelling of lips/tongue Card: Denies: chest pain Resp: Denies: dyspnea GI: Denies: vomiting Neuro: Denies: confusion PFSH ED PFSH: Medical History Benign essential HTN Cataract COVID-19 Fungal pneumonia Generalized anxiety disorder Hx of chest pain Hx of shortness of breath Hypothyroidism Incontinence in female Major depressive disorder, recurrent severe without psychotic features Methadone dependence Microcytic anemia Neuropathy Other urethral stricture, female Post-traumatic stress disorder, chronic Psychiatric care Respiratory failure Surgical History H/O gastric bypass H/O: hysterectomy History of amputation of great toe of both feet History of cholecystectomy History of esophagogastroduodenoscopy (EGD) History of reconstructive repair of rectocele History of total right hip replacement Hx of appendectomy Family History Father , AT AGE 62 Cancer PROSTATE CANCER Grandmother Stroke Denies family history of Anesthesia complication Bleeding disorder Social History Smoking and tobacco status: never smoked Second hand smoke exposure: No Alcohol intake: never Adopted: Yes (Grandparents adopted her.) Caregiver/support person: No Lives independently: Yes Household members: none Housing: Apartment Marital status: / Number of children: 2 Number of grandchildren: 4 Highest education level completed: Associate Degree: Occupational, Technical, Vocational Program service: No Current occupational status: disabled Current occupational exposures/hazards: No Pets and animals: Yes Pets & animals: cat(s) Leisure activites: reading and other Leisure activities details: puzzles Sexually active: No Current gender identity: Female Ekta/Christianity: Baptist Special ekta needs: No Agree to transfusion: Yes Financial difficulty paying for basics: Not Very Hard Female Reproductive History: Para: 2 Spontaneous abortions: No Physical Exam Const: COMMON NORMALS: patient oriented x3 and alert GENERAL APPEARANCE: cooperative and anxious; not ill appearing ORIENTATION/CONSCIOUSNESS: Yes oriented to person, Yes oriented to place and Yes oriented to time HENMT: COMMON NORMALS: normocephalic and atraumatic HEAD & SCALP: normocephalic and atraumatic FACE & SINUS: sinuses nontender NOSE: Normal nares present Eye: DIRECT OPHTHALMOSCOPY: Yes photophobia Chest: COMMONS NORMALS: normal inspection of the chest Resp: COMMON NORMALS: normal respiratory effort and clear to auscultation bilaterally EFFORT & INSPECTION: No tachypneic and No respiratory distress AUSCULTATION: clear to auscultation bilaterally Cardio: COMMON NORMALS: regular rate and regular rhythm RATE: regular rate RHYTHM: regular rhythm GI: COMMON NORMALS: Normal to inspection, nondistended, normoactive bowel sounds present and Soft to palpation PALPATION: Yes Soft to palpation Neuro: [place] COMA SCALE: document GCS findings [place] coma scale eye opening: Spontaneous [place] coma scale verbal response: Orientated [place] coma scale motor response: Obey commands [place] coma scale total score: 15 COMMON NORMALS: patient oriented x3 SENSORIUM/ORIENTATION: Yes alert, Yes oriented to person, Yes oriented to place and Yes oriented to time COORDINATION/BALANCE: [id number]-[id number] test normal SPEECH: speech normal GAIT: Yes Unable to assess gait SENSORY EXAM: Yes extremities (Intact) MOTOR EXAM: Pronator motor function not present COORDINATION: ulofaz-hx-hutv test normal Course Vital Signs: Vital signs: Vital Signs Temperature 98.7 F 07/30/21 18:56 Pulse Rate 86 07/30/21 23:05 Respiratory Rate 25 H 07/30/21 23:05 Blood Pressure 126/90 07/30/21 23:05 Pulse Oximetry 92 07/30/21 22:30 MDM - Headache MDM Narrative: Medical decision making narrative: 85-year-old female with generalized weakness and headache. Head CT is negative. Chest x-ray shows improvement from prior x-ray white blood cell count is 6.7. Potassium is 2.9 and is repleted both orally and IV. Other laboratory benign. She has a contaminated urinalysis slightly, but does appear to have a urinary tract infection. She is given a gram of Rocephin for this, and will be sent home on antibiotics. She is feeling improved after medication for headache. Lab Data: Labs: Lab Results 07/30/21 07/30/21 07/30/21 19:54 19:54 20:21 WBC 6.7 10^3/uL 10^3/ uL (4.0-10.0) RBC 4.37 10^6/uL 10^6 /uL (4.1-5.3) Hgb 12.0 g/dL g/dL (11.5-15.3) Hct 37.8 % % (37.0-47.0) MCV 86.5 fl fl (81-99) MCH 27.5 pg L pg (28.0-34.0) MCHC 31.7 g/dL g/dL (30.0-36.0) RDW 15.9 % H % (12.1-15.1) Plt Count 262 10^3/cmm 10^3 /cmm (130-400) MPV 9.7 fL fL (7.4-10.4) Neut % (Auto) 52.6 % % Lymph % (Auto) 36.4 % % [place] % (Auto) 8.8 % % Eos % (Auto) 1.6 % % Baso % (Auto) 0.3 % % Neut # (Auto) 3.55 10^3/uL 10^3 /uL (1.8-7.7) Lymph # (Auto) 2.5 10^3/uL 10^3/ uL (0.8-4.8) [place] # (Auto) 0.6 10^3/uL 10^3/ uL (0.2-0.9) Eos # (Auto) 0.1 10^3/uL 10^3/ uL (0.0-0.8) Baso # (Auto) 0.0 10^3/uL 10^3/ uL (0.0-0.1) Nucleated RBC % (a uto) 0 % % Nucleated RBCs # 0.0 /100WBC /100W BC Sodium 140 mmol/L mmol/L (136-145) Potassium 2.9 mmol/L L mmol /L (3.5-5.1) Chloride 107 mmol/L mmol/L (98-107) Carbon Dioxide 21 mmol/L L mmol/ L (22-29) Anion Gap 14.9 (5-19) BUN 8 mg/dL mg/dL (6-20) Creatinine 0.3 mg/dL L mg/dL (0.5-0.9) GFR Calculation 229.3 mL/min H mL /min (90-130) Glucose 73 mg/dL mg/dL (65-115) Calculated Osmolal ity 287 mOsm/kg mOsm/ kg (285-295) Calcium 8.3 mg/dL L mg/dL (8.5-10.5) Total Bilirubin 0.2 mg/dL mg/dL (0.15-1.2) AST 18 U/L U/L (0-32) ALT 14 U/L U/L (0-33) Alkaline Phosphata se 120 IU/L H IU/L (35-105) C-Reactive Protein 0.3 mg/L mg/L (0.0-4.9) Total Protein 6.6 g/dL g/dL (6.6-8.7) Albumin 3.3 g/dL L g/dL (3.5-5.2) Globulin 3.3 g/dL g/dL (1.3-4.6) Procalcitonin 0.04 ng/mL ng/mL (0-0.5) Urine Color Yellow (Yellow) Urine Appearance Sl hazy (CLEAR) Urine pH 6 (5-7) Ur Specific Gravit y 1.015 (1.005-1.030) Urine Protein Neg (Negative) Urine Glucose (UA) Norm (Normal) Urine Ketones Negative (Negative) Urine Blood Neg (Negative) Urine Nitrate Negative (Negative) Urine Bilirubin Neg (Negative) Urine Urobilinogen Norm mg/dL mg/dL (Negative) Ur Leukocyte Iva ase 2+ H (Negative) Urine RBC 0-4 /hpf H /hpf (0-2) Urine WBC 10-15 /hpf H /hpf (0-5) Ur Squamous Epith Cells 15-25 /hpf H /hpf (0-5) Calcium Oxalate Cr ystal 15-25 /hpf H /hpf Amorphous Sediment Not Reportable Urine Bacteria 1+ /hpf H /hpf (NONE) Discharge Plan Discharge Patient Disposition: Home Clinical Impression: UTI (urinary tract infection), Hypokalemia Condition: Stable Prescriptions: No Action gabapentin 600 mg tablet 1,200 mg PO TID RF: 0 oxybutynin chloride 5 mg tablet 5 mg PO BID RF: 0 clonazepam 1 mg tablet 1 mg PO BID PRN (Reason: Anxiety) RF: 0 ibuprofen [Advil] 200 mg Tablet 400 mg PO Q6H PRN (Reason: Pain) RF: 0 omeprazole 20 mg Capsule,Delayed Release(Dr/Ec) 20 mg PO BID RF: 0 methadone 10 mg Tablet 75 mg PO DAILY RF: 0 levothyroxine 75 mcg tablet 75 mcg PO QAM RF: 0 citalopram 20 mg tablet 20 mg PO BEDTIME RF: 0 losartan 25 mg tablet 25 mg PO QAM RF: 0 albuterol sulfate [ProAir HFA] 90 mcg/actuation Hfa Aerosol Inhaler 2 puff INHALATION QID PRN (Reason: Shortness Of Breath) RF: 0 amitriptyline 100 mg tablet 200 mg PO BEDTIME RF: 0 lactulose 10 gram/15 mL solution 10 g PO TID PRN (Reason: Constipation) RF: 0 Discharge Orders: Discharge ED (Routine); Ordered 07/30/21 Ordered By: Tobi Arthur Referrals: Yaya Myles MD [Primary Care Provider] - Patient Instructions: Opioid Safety Coding Level of Care Code ED Gauntlet Pairer for Chg Fwd Exam Comprehensive
[2021-07-30] MEDS: ketorolac 30 mg/mL INJ 15 MG IVP ×2 (19:42→23:36)
[2021-07-30] MEDS: sodium chloride 0.9% 1,000 ML 999 ML IV (19:43)
[2021-07-30] MEDS: fentaNYL 50 mcg/mL INJ 2mL IVP ×2 (19:43→21:07)
[2021-07-30] MEDS: ondansetron 2 mg/ML SDV 2 mL 4 MG IVP (19:43)
[2021-07-30 20:07] LABS: Basophils % 0.3 %; Eosinophils # 0.1 10^3/uL (0.0-0.8); Eosinophils % 1.6 %; Hematocrit 37.8 % (37.0-47.0); Lymphocytes # 2.5 10^3/uL (0.8-4.8); Lymphocytes % 36.4 %; Mean Corpuscular HGB Conc 31.7 g/dL (30.0-36.0); Mean Corpuscular Hemoglobin 27.5 pg (28.0-34.0); Mean Corpuscular Volume 86.5 fl (81-99); Mean Platelet Volume 9.7 fL (7.4-10.4); Monocytes # 0.6 10^3/uL (0.2-0.9); Monocytes % 8.8 %; Neutrophils # 3.55 10^3/uL (1.8-7.7); Neutrophils % 52.6 %; Nucleated Red Blood Cells % 0 %; Platelet Count 262 10^3/cmm (130-400); Red Blood Count 4.37 10^6/uL (4.1-5.3); Red Cell Distribution Width 15.9 % (12.1-15.1); White Blood Count 6.7 10^3/uL (4.0-10.0)
[2021-07-30 20:32] LABS: Alanine Aminotransferase 14 U/L (0-33); Albumin Level 3.3 g/dL (3.5-5.2); Alkaline Phosphatase 120 IU/L (35-105); Anion Gap 14.9 (5-19); Aspartate Amino Transferase 18 U/L (0-32); Blood Urea Nitrogen 8 mg/dL (6-20); C Reactive Protein 0.3 mg/L (0.0-4.9); Calcium 8.3 mg/dL (8.5-10.5); Carbon Dioxide 21 mmol/L (22-29); Chloride 107 mmol/L (98-107); Globulin 3.3 g/dL (1.3-4.6); Glomerular Filtration Rate 229.3 mL/min (90-130); Glucose 73 mg/dL (65-115); Osmolality Calculated 287 mOsm/kg (285-295); Sodium 140 mmol/L (136-145); Total Bilirubin 0.2 mg/dL (0.15-1.2); Total Protein 6.6 g/dL (6.6-8.7)
[2021-07-30 20:34] LABS: Potassium 2.9 mmol/L (3.5-5.1)
[2021-07-30 20:39] LABS: Procalcitonin 0.04 ng/mL (0-0.5)
[2021-07-30] MEDS: potassium chloride oral liq 20 mEq/15 mL UDC 40 MEQ PO (20:49)
[2021-07-30] MEDS: potassium chloride premix 100 ML 50 MEQ IV (20:50)
[2021-07-30 22:14] LABS: Add Urine Microscopic? YES; Bilirubin Urine Neg (Negative); Blood Urine Neg (Negative); Glucose Urine UA Norm (Normal); Ketones Urine Negative (Negative); Leukocyte Esterase Urine 2+ (Negative); Nitrate Urine Negative (Negative); Protein Urine Neg (Negative); Specific Gravity, Urine 1.015 (1.005-1.030); Urine Appearance SL Hazy (CLEAR); Urine Color Yellow (Yellow); Urobilinogen Urine Norm (Negative); pH Urine 6 (5-7)
[2021-07-30 22:24] LABS: RBC Urine 0-4 /hpf (0-2)
[2021-07-30 22:25] LABS: Add Urine Culture? No; Bacteria Urine 1+ /hpf; Calcium Oxalate Crystals Urine 15-25 /hpf; Squamous Epithelial Cell Urine 15-25 /hpf (0-5)
[2021-07-30] MEDS: cefTRIAXone 1,000 MG in sodium chloride 0.9% (plus) 50 ML 100 MG IV (22:54)
[2021-07-30] MEDS: HYDROcodone-acetaminophen 5-325 mg Tablet 2 TAB PO (23:35)
== END 2021-07-30 23:40 | disposition home or self-care (01) ==
PROVIDERS: Emergency Provider Emergency Medicine; PCP Family Medicine
DX: E87.6 Hypokalemia (principal); N39.0 Urinary tract infection, site not specified; Z79.891 Long term (current) use of opiate analgesic; I10 Essential (primary) hypertension
CPT/HCPCS: 70450; 71045; 80053; 81001; 84145; 85025; 86140; 96365; 96367; 96375; 96376; 99284; J0696; J1885; J2405; J3010; J3480; J7030

== ENCOUNTER → 2021-08-04 09:05 | Outpatient (BNVA) | payer MEDICARE, MEDICAID, SELFPAY ==
[2021-01-25 16:20] VITALS: BP 104/59; BMI 34.0
== END ==
PROVIDERS: PCP Family Medicine; Visit Provider Psychiatry & Neurology Psychiatry
DX: F41.1 Generalized anxiety disorder (principal); F33.2 Major depressive disorder, recurrent severe without psychotic features; F43.12 Post-traumatic stress disorder, chronic
CPT/HCPCS: 99214

== ENCOUNTER → 2021-09-13 11:45 | Outpatient (BNVA) | payer MEDICARE, MEDICAID, SELFPAY ==
[2021-01-25 16:20] VITALS: BP 104/59; BMI 34.0
== END ==
PROVIDERS: PCP Family Medicine; Visit Provider Podiatrist Foot & Ankle Surgery
DX: L97.511 Non-pressure chronic ulcer of other part of right foot limited to breakdown of skin (principal); L97.521 Non-pressure chronic ulcer of other part of left foot limited to breakdown of skin
CPT/HCPCS: 87070; 87075; 87077; 87186; 87205

== ENCOUNTER → 2021-09-26 00:01 | Outpatient (BNVA) | payer OTHER, SELFPAY ==
[2021-01-25 16:20] VITALS: BP 104/59; BMI 34.0
== END ==
PROVIDERS: PCP Family Medicine; Visit Provider Podiatrist Foot & Ankle Surgery
DX: Z20.822 Contact with and (suspected) exposure to COVID-19 (principal); L97.521 Non-pressure chronic ulcer of other part of left foot limited to breakdown of skin; L97.511 Non-pressure chronic ulcer of other part of right foot limited to breakdown of skin
CPT/HCPCS: 87635

== ENCOUNTER 2021-09-30 05:45 | Day surgery (SDC) | payer MEDICARE, MEDICAID, SELFPAY ==
[2021-01-25 16:20] VITALS: BP 104/59; BMI 34.0
[2021-09-29 12:19] VITALS: BMI 27.6
[2021-09-30] VITALS (8 sets, daily range): BP systolic 124–145; BP diastolic 72–108; PULSE 81–94; RESP 13–22; TEMP 36.1–36.7; O2SAT 93–100
[2021-09-30] MEDS: sodium chloride 0.9% 1,000 ML 30 ML IV (06:36)
--- NOTE | 2021-09-30 06:40 | P.HPUD_ITS ---
Surgery/Procedure H&P Update DATE OF PROCEDURE: September 30, 2021 DATE H&P PERFORMED: 09/26/21 H&P UPDATE INFORMATION: I have reviewed H&P completed within last 30 days, I have examined patient prior to procedure, No changes to prior documentation and H&P is in [facility] EMR on date indicated PREOP DIAGNOSIS: Hammertoe and recalcitrant ulcer left foot, equinus left ankle. PLANNED PROCEDURE: Operation Date: 09/30/21 08:05 Proposed Procedures p TRANSMETATARSAL AMPUTATION [id number]; M24.573, M20.40, L97.521(Left) - Mir Hall DPM s ACHILLES LENGTHENING LEFT LOWER EXT [id number](Left) - Mir Hall DPM
--- NOTE | 2021-09-30 06:41 | PM.OP ---
Operative Report Date of procedure: September 30, 2021 Pre-op Diagnosis: Hammertoe and recalcitrant ulcer left foot, equinus left ankle. Post-op diagnosis: same Post-op Findings: Same Procedure Done: Transmetatarsal mutation and Achilles lengthening left lower extremity. Implants: 2-0 Vicryl, 3-0 nylon Pathology: Left forefoot with toes 2, 3, 4 and 5 sent to pathology for gross/permanent. Surgeon: Mir Hall D.P.M. Protective Signal Superintendent: Pablo Anesthesia: General Estimated blood loss: 5 Tourniquet time: 18 IV fluids: 0 Urine output: 0 Complications: 0 Findings: None Disposition: PACU Brief History: Patient is a pleasant 55-year-old female who has had painful hammertoe contractures and recurring ulcerations at the tip of her left second and third toes, she has a history of a left great toe amputation. She is requesting a left transmetatarsal mutation to remove the source of pain and source of recurring ulcerations as she has nonreducible hammertoe contractures with sagittal plane dominance. This can be done outpatient patient wishes to proceed, Covid screening was negative, informed consent signed, initialed her left foot. No guarantees written, expressed or implied. Risks include pain, bleeding, numbness, infection, surgical site dehiscence, altered mechanics, transfer pressure, transfer lesion and need for further surgical intervention. Also need for advanced bracing and toe filler with accommodative shoes. Procedure: Under mild sedation the patient was brought to the operating room and remained on the gurney in supine position. A timeout was performed. Anesthesia was administered by the anesthesia service. Local anesthesia injected by myself in a left possible ankle block fashion. Well-padded pneumatic tourniquet applied to left high calf. Left lower extremity was scrubbed, prepped and draped utilizing normal aseptic technique. Was elevated and tourniquet inflated to 250 mmHg. Attention was directed to the posterior insertion site of the Achilles tendon on the left lower extremity were 1.5 cm proximal to insertion a hemisection medially was performed of the Achilles tendon percutaneously with a #15 blade in like fashion an additional 2 hemisections were performed spaced out 1.5 cm apart working proximally a total of 3 hemisections percutaneously performed this was a Paul style Achilles lengthening percutaneously with a 15 blade. Incisions were flushed and closed with 3-0 nylon and covered with an OpSite. Attention was then directed to the left forefoot where a fishmouth incision from first metatarsal to fifth metatarsal was performed maintaining a long plantar flap incision was full-thickness down to bone and the forefoot was amputated at the distal aspect of the metatarsals 1 through 5 left foot, all bleeders were ligated and cauterized as necessary. Forefoot was passed from operative field and sent to pathology for gross/permanent. Tendons both extensor and flexor were transected under traction at the most proximal margin, further ligation was performed of all bleeders followed by irrigation and closure in a layered fashion with 2-0 Vicryl subcutaneous tissue and 3-0 nylon at skin. Incision was then dressed with Adaptic, sterile 4 x 4, Kerlix and Zeke wrap and a cam boot was applied. Tourniquet was deflated and a prompt hyperemic response was noted to the distal amputation site. Patient tolerated the procedure and anesthesia well and was transferred to the PACU with vital signs stable and vascular status intact. Following a period of postop monitoring she will be discharged home is to remain nonweightbearing. Patient is to remain strict nonweightbearing to the left lower extremity to prevent amputation incision site dehiscence. She is not a candidate for crutches due to upper body weakness and shoulder pain as well as poor balance. Patient will require a wheelchair for 90 days to assist with nonweightbearing status.
--- NOTE | 2021-09-30 06:53 | XR_ITS ---
WS: [id number] Left foot, 3 views, 09/30/2021 Clinical Data: post op Comparison: Left foot, 03/25/2018. Findings: The second through fifth toes have been amputated. The left first toe was amputated years ago. The remainder of the foot shows no change. XR/XR foot LT min 3V* [id number] Impression: 1. Amputation of second through fifth toes left foot. 2. Prior amputation of left first toe.
--- NOTE | 2021-09-30 06:58 | ANES.PREANE2 ---
Pre-Anesthetic Assessment Pre-Anesthetic Assessment: Height/Weight: Height 1.75 m Weight 84.822 kg Temp Pulse Resp BP Pulse Ox 97.2 F L 94 16 145/108 98 09/30/21 06:10 09/30/21 06:10 09/30/21 06:10 09/30/21 06:10 09/30/21 06:10 Preop Diagnosis: Hammertoe and recalcitrant ulcer left foot, equinus left ankle. Proposed Procedure: Operation Date: 09/30/21 08:05 Proposed Procedures p TRANSMETATARSAL AMPUTATION [id number]; M24.573, M20.40, L97.521(Left) - Mir Hall DPM s ACHILLES LENGTHENING LEFT LOWER EXT [id number](Left) - Mir Hall DPM Familial anesthetic complications: PONV Was Beta Nicola taken within 24 hours: N/A Was Clonidine taken within 24 hours: N/A Last intake: Intake Last Liquid Date 09/29/21 Last Liquid Time 22:00 Last Solid Date 09/29/21 Last Solid Time 22:00 Social: Social History: No alcohol and No tobacco Exam: Pre-Anes Outpt Exam: alert, oriented x 3, clear to auscultation bilaterally and regular rate & rhythm Airway: Submandibular: WNL Cervical ROM: WNL MP: 1 Dentition: False Pulmonary: Pulmonary: None reported CV/HEM: CV/HEM: HTN : Comments: Urethral stricture Hepatic: Hepatic: None reported GI: GI: None reported Metabolic: Metabolic: Thyroid (Hypothyroid) Neuropsych: Neuropsych: Anxiety (PTSD) and Seizure (No sieziures for over a year) Comments: Idiopathic neuropathy with numbness in b/l UE and LE extremities affecting hands, feets, and now extending proximal into legs. Anesthetic Plan: ASA status: 3 (55 year old with progressive neuropathy requiring amputation now using wheelchair) Anesthesia: Anesthesia Evaluation and General Other: We discussed MAC and general anesthesia and their risks and benefits. \ We discussed spectrum of MAC anesthesia including possibility of recall of intraoperative stimuli including pain/discomfort. Patient preferes general anesthesia today. Risk of > 500 ml blood loss (7ml/kg in children): No Meds/Allergies Current Medications: Current Medications Generic Name Dose Route Start Last Admin Trade Name Freq PRN Reason Stop Dose Admin Sodium Chloride 1,000 mls @ 30 ml s/hr 09/30/21 06:00 09/30/21 06:36 Sodium Chloride 0.9% IV 10/01/21 05:59 30 mls/hr .Q24H BIA Administration PFSH Anesthesia PFSH: Medical History Benign essential HTN Cataract COVID-19 Fungal pneumonia Generalized anxiety disorder Hx of chest pain Hx of shortness of breath Hypothyroidism Incontinence in female Major depressive disorder, recurrent severe without psychotic features Methadone dependence Microcytic anemia Neuropathy Other urethral stricture, female Post-traumatic stress disorder, chronic Post-traumatic stress disorder, unspecified Psychiatric care Respiratory failure Surgical History H/O gastric bypass H/O: hysterectomy History of amputation of great toe of both feet History of cholecystectomy History of esophagogastroduodenoscopy (EGD) History of reconstructive repair of rectocele History of total right hip replacement Hx of appendectomy Family History Father , AT AGE 62 Cancer PROSTATE CANCER Grandmother Stroke Denies family history of Anesthesia complication Bleeding disorder Social History Second hand smoke exposure: No Alcohol intake: never Adopted: Yes (Grandparents adopted her.) Caregiver/support person: No Lives independently: Yes Household members: none Housing: Apartment Marital status: / Marital status details: for 21 years Number of children: 2 Number of grandchildren: 4 Highest education level completed: Associate Degree: Occupational, Technical, Vocational Program 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 School service: No Current occupational status: disabled Current occupational exposures/hazards: No Pets and animals: Yes (2) Pets & animals: cat(s) History of recent travel: No Leisure activites: reading and other Leisure activities details: Watch TV Sexually active: No Current gender identity: Female Ekta/Yazdanism: Quaker Special ekta needs: No Agree to transfusion: Yes Financial difficulty paying for basics: Somewhat Hard Female Reproductive History: Para: 2 Spontaneous abortions: No Data Anesthesia Cardiac Studies: Echocardiogram 05/15/21 Sestamibi Stress Test (Cardiology) 07/15/20
[2021-09-30] MEDS: scopolamine 1.5 Patch 1 PATCH TRANSDERMA (07:40)
[2021-09-30] MEDS: clindamycin 600 MG/50 ML PREMIX 100 MG IV (08:51)
[2021-09-30] MEDS: lidocaine 1% INJ 20 mL 15 ML INJECTION (09:15)
[2021-09-30] MEDS: HYDROcodone-acetaminophen 5-325 mg Tablet 1 TAB PO (11:07)
--- NOTE | 2021-09-30 13:19 | ANE.PACU2 ---
Inpatient post-anesthesia follow up: Airway intact: Yes Vital signs: Temperature 98.0 F Pulse Rate 83 Respiratory Rate 14 Blood Pressure 138/89 Pulse Oximetry 96 Oxygen Delivery Me thod Room Air Oxygen Flow Rate 6 Fraction of Inspir ed Oxygen Hydration adequate: No Nausea and vomiting: No Pain level: 2 Mental status: Baseline
== END 2021-09-30 11:10 | disposition home or self-care (01) ==
PROVIDERS: PCP Family Medicine; Visit Provider Podiatrist Foot & Ankle Surgery
PROC: (CPT 27685; principal; 2021-09-30 07:55)
PROC: (CPT 28261; 2021-09-30 07:55)
DX: M20.42 Other hammer toe(s) (acquired), left foot (principal); M21.6X1 Other acquired deformities of right foot; I10 Essential (primary) hypertension; E03.9 Hypothyroidism, unspecified; F41.9 Anxiety disorder, unspecified; Z86.16 Personal history of COVID-19
CPT/HCPCS: 27685; 28805; 73630; 88307; 88311; J1100; J2405; J2704; J3010; J3490; J7030

== ENCOUNTER → 2021-10-10 11:44 | Outpatient (BNVA) | payer OTHER, SELFPAY ==
[2021-01-25 16:20] VITALS: BP 104/59; BMI 34.0
== END ==
PROVIDERS: PCP Family Medicine; Visit Provider Psychiatry & Neurology Psychiatry
DX: F41.1 Generalized anxiety disorder (principal)
CPT/HCPCS: 80061; 83036

== ENCOUNTER → 2021-11-07 11:23 | Outpatient (BNVA) | payer MEDICARE, MEDICAID, SELFPAY ==
[2021-10-11 08:44] VITALS: BP 139/99; BMI 28.1
== END ==
PROVIDERS: PCP Family Medicine; Visit Provider Podiatrist Foot & Ankle Surgery
DX: L97.511 Non-pressure chronic ulcer of other part of right foot limited to breakdown of skin (principal); Z20.822 Contact with and (suspected) exposure to COVID-19
CPT/HCPCS: 87635

== ENCOUNTER 2021-11-11 08:04 | Day surgery (SDC) | payer MEDICARE, MEDICAID, SELFPAY ==
[2021-10-11 08:44] VITALS: BP 139/99; BMI 28.1
[2021-11-10 13:41] VITALS: BMI 29.0
[2021-11-10 17:20] VITALS: BP 139/99; BMI 28.1
[2021-11-11] VITALS (13 sets, daily range): BP systolic 107–147; BP diastolic 7–98; PULSE 73–88; RESP 16–18; TEMP 36.1–36.4; O2SAT 90–100
[2021-11-11] MEDS: sodium chloride 0.9% 1,000 ML 30 ML IV (08:40)
--- NOTE | 2021-11-11 09:16 | P.ANESASSM_ITS ---
Pre-Anesthetic Assessment Height/Weight: Height 1.75 m Weight 89.358 kg Temp Pulse Resp BP Pulse Ox 97.5 F L 87 16 147/96 96 11/11/21 08:28 11/11/21 08:28 11/11/21 08:28 11/11/21 08:28 11/11/21 08:28 Preop Diagnosis: Right equinus, hammertoe deformities right foot, recalcitrant ulcerations r Operation Date: 11/11/21 10:20 Proposed Procedures p transmetatarsal amputation right foot 60260/07431/m20.41/l97.511(Right) - Mir Hall DPM s Tendon Lengthening Foot(Right) - Mir Hall DPM Familial anesthetic complications: None Was Beta Nicola taken within 24 hours: N/A Was Clonidine taken within 24 hours: N/A Last intake: Intake Last Liquid Date 11/10/21 Last Liquid Time 22:00 Last Solid Date 11/10/21 Last Solid Time 17:00 Social No alcohol and No tobacco Exam alert, oriented x 3, clear to auscultation bilaterally and regular rate & rhythm Airway Submandibular: within normal limits Cervical ROM: Other (Limited extension) Mallampati: Class II Dentition: false Pulmonary Hx of COVID 19 infection Hx of fungal pneumonia CV/HEM Anemia TTE EF 60% 04/2021 None reported Hepatic None reported GI S/P gastric bypass Metabolic Thyroid Disease Neuropsych Anxiety, Depression and Neuropathy Idiopathic neuropathy PTSD Anesthetic Plan ASA status: 3 (55 year old female with progressive neuropathy, depression, hypothyroidism now wheelchair bound. ) Anesthesia: Anesthesia Evaluation and General Other: Patient prefers general. We discussed risk and benefits of general anesthesia including PONV, sore throat (sometimes severe), corneal abrasion, positioning and peripheral nerve injuries, life threatening allergic reaction, post operative ICU admission requiring prolonged intubation, stroke, heart attack, , and rare incidences of recall. Patient consents to proceed with general anesthesia. Risk of > 500 ml blood loss (7ml/kg in children): No Medications/Allergies Home Medications Medication Instructions Recorded Confirmed Last Taken Type oxybutynin chloride 5 mg tablet 5 mg PO BID 10/08/19 11/11/21 11/10/21 History gabapentin 600 mg tablet 1,200 mg PO TID 11/19/19 11/11/21 11/11/21 07:00 History ibuprofen 200 mg tablet (Advil) 400 mg PO Q6H PRN 03/23/20 11/11/21 11/10/21 History clonazepam 1 mg tablet 1 mg PO BID PRN tab 08/10/20 11/11/21 11/10/21 History amitriptyline 100 mg tablet 200 mg PO BEDTIME 05/12/21 11/11/21 11/10/21 History levothyroxine 75 mcg tablet 75 mcg PO QAM 05/12/21 11/11/21 11/10/21 History prazosin 5 mg capsule 5 mg PO .HS #30 cap 10/12/21 11/11/21 11/10/21 Rx trazodone 100 mg tablet 200 mg PO .HS #60 tab 10/12/21 11/11/21 11/10/21 Rx duloxetine 60 mg capsule,delayed 60 mg PO DAILY #30 cap 10/24/21 11/11/21 11/10/21 Rx release Allergies Allergy/AdvReac Type Severity Reaction Status Date / Time amoxicillin Allergy Intermediate rash Verified 11/10/21 13:38 egg Allergy Intermediate Vomiting Verified 11/10/21 13:38 morphine Allergy Intermediate rash Verified 11/10/21 13:38 Penicillins Allergy Intermediate ALGY-Rash Verified 11/10/21 13:38 promethazine Allergy Intermediate rash Verified 11/10/21 13:38 [id number] [From Nubain] AdvReac Intermediate ADR-Agitate Verified 11/10/21 13:38 d Current Medications Generic Name Dose Route Start Last Admin Trade Name Freq PRN Reason Stop Dose Admin Sodium Chloride 1,000 mls @ 30 mls/hr 11/11/21 08:15 11/11/21 08:40 Sodium Chloride 0.9% IV 11/12/21 08:14 30 mls/hr .Q24H BIA Administration PFSH Anesthesia Medical History Benign essential HTN Cataract COVID-19 Fungal pneumonia Generalized anxiety disorder Hx of chest pain Hx of shortness of breath Hypothyroidism Incontinence in female Major depressive disorder, recurrent severe without psychotic features Methadone dependence Microcytic anemia Neuropathy Other urethral stricture, female Post-traumatic stress disorder, chronic Post-traumatic stress disorder, unspecified Psychiatric care Respiratory failure Surgical History H/O gastric bypass H/O: hysterectomy History of amputation of great toe of both feet History of cholecystectomy History of esophagogastroduodenoscopy (EGD) History of reconstructive repair of rectocele History of total right hip replacement Hx of appendectomy Family History Father , AT AGE 62 Cancer PROSTATE CANCER Grandmother Stroke Denies family history of Anesthesia complication Bleeding disorder Social History Smoking and tobacco status: never smoked Second hand smoke exposure: No Alcohol intake: never Adopted: Yes (Grandparents adopted her.) Caregiver/support person: No Lives independently: Yes Household members: none Housing: Apartment Marital status: / Marital status details: for 21 years Number of children: 2 Number of grandchildren: 4 Highest education level completed: Associate Degree: Occupational, Technical, Vocational Program 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 School service: No Current occupational status: disabled Current occupational exposures/hazards: No Pets and animals: Yes (2) Pets & animals: cat(s) History of recent travel: No Leisure activites: reading and other Leisure activities details: Watch TV Sexually active: No Current gender identity: Female Ekta/Lutheran: Gnosticist Special ekta needs: No Agree to transfusion: Yes Financial difficulty paying for basics: Somewhat Hard Female Reproductive History Para: 2 Spontaneous abortions: No Data Anesthesia Cardiac Studies: Echocardiogram 05/15/21 Sestamibi Stress Test (Cardiology) 07/15/20
--- NOTE | 2021-11-11 11:29 | W.PM.OPSUD ---
Surgery/Procedure H&P Update DATE OF PROCEDURE: November 11, 2021 DATE H&P PERFORMED: 11/07/21 CHANGES TO PREVIOUS DOCUMENTATION: none PREOP DIAGNOSIS: Right equinus, hammertoe deformities right foot, recalcitrant ulcerations r PLANNED PROCEDURE: Operation Date: 11/11/21 10:20 Proposed Procedures p transmetatarsal amputation right foot 68211/76837/m20.41/l97.511(Right) - Mir Hall DPM s Tendon Lengthening Foot(Right) - Mir Hall DPM
--- NOTE | 2021-11-11 11:31 | XR_ITS ---
WS: [id number] Right foot, 3 views, 11/11/2021 Clinical Data: preop Comparison: Right foot, 05/24/2019. Findings: There is amputation of the right first toe. There is a healed fracture of the distal aspect of the ri ght fifth metatarsal. There is flexion deformity of the second through fifth toes. No new fractures or dislocations are seen. The soft tissues are normal. No bone destruction or erosio n is seen. XR/XR foot RT 2V [id number] Impression: 1. Right first toe agitation. 2. Healed fracture of distal right fifth metatarsal. 3. Flexion deformity of the right second through fifth toes.
[2021-11-11] MEDS: clindamycin 600 MG/50 ML PREMIX 100 MG IV (11:56)
[2021-11-11] MEDS: lidocaine 1% INJ 20 mL INJECTION (12:20)
--- NOTE | 2021-11-11 12:42 | P.OP_ITS ---
Operative Report Date of procedure: November 11, 2021 Pre-op diagnosis: Hammertoe deformities of right second, third, fourth and fifth toes, equinus deformity right lower extremity, recalcitrant ulcers right foot. 20 Procedure: Date of procedure: November 11, 2021 Pre-op Diagnosis: Hammertoe and recalcitrant ulcer right foot, equinus right ankle. Post-op diagnosis: same Post-op Findings: Same Procedure Done: Transmetatarsal mutation and Achilles lengthening right lower extremity. Implants: 2-0 Vicryl, 3-0 nylon Pathology: Right forefoot with toes 2, 3, 4 and 5 sent to pathology for gross/permanent. Surgeon: Mir Hall D.P.M. [employer]razzo Finisher: Pablo Anesthesia: General Estimated blood loss: 5 Tourniquet time: 18 IV fluids: 0 Urine output: 0 Complications: 0 Findings: None Disposition: PACU Brief History: Patient is a pleasant 55-year-old female who has had painful hammertoe contractures and recurring ulcerations at the tip of her right second and third toes, she has a history of a right great toe amputation.? She is requesting a right transmetatarsal mutation to remove the source of pain and source of recurring ulcerations as she has nonreducible hammertoe contractures with sagittal plane dominance.? This can be done outpatient patient wishes to proceed, Covid screening was negative, informed consent signed, initialed her right foot.? No guarantees written, expressed or implied.? Risks include pain, bleeding, numbness, infection, surgical site dehiscence, altered mechanics, transfer pressure, transfer lesion and need for further surgical intervention.? Also need for advanced bracing and toe filler with accommodative shoes. Procedure: Under mild sedation the patient was brought to the operating room and remained on the gurney in supine position.? A timeout was performed.? Anesthesia was administered by the anesthesia service.? Local anesthesia injected by myself in a right possible ankle block fashion.? Well-padded pneumatic tourniquet applied to right high calf.? Right lower extremity was scrubbed, prepped and draped utilizing normal aseptic technique.? Was elevated and tourniquet inflated to 250 mmHg. Attention was directed to the posterior insertion site of the Achilles tendon on right lower extremity were 1.5 cm proximal to insertion a hemisection medially was performed of the Achilles tendon percutaneously with a #15 blade in like fashion an additional 2 hemisections were performed spaced out 1.5 cm apart working proximally a total of 3 hemisections percutaneously performed this was a Paul style Achilles lengthening percutaneously with a 15 blade.? Incisions were flushed and closed with 3-0 nylon and covered with an OpSite.? Attention was then directed to the right forefoot where a fishmouth incision from first metatarsal to fifth metatarsal was performed maintaining a long plantar flap incision was full-thickness down to bone and the forefoot was amputated at the distal aspect of the metatarsals 1 through 5 right foot, all bleeders were ligated and cauterized as necessary.? Forefoot was passed from operative field and sent to pathology for gross/permanent.? Tendons both extensor and flexor were transected under traction at the most proximal margin, further ligation was performed of all bleeders followed by irrigation and closure in a layered fashion with 2-0 Vicryl subcutaneous tissue and 3-0 nylon at skin.? Incision was then dressed with Adaptic, sterile 4 x 4, Kerlix and Zeke wrap and a cam boot was applied.? Tourniquet was deflated and a prompt hyperemic response was noted to the distal amputation site.? Patient tolerated the procedure and anesthesia well and was transferred to the PACU with vital signs stable and vascular status intact.? Following a period of postop monitoring she will be discharged home is to remain nonweightbearing. Patient is to remain strict nonweightbearing to the right lower extremity to prevent amputation incision site dehiscence.? She is not a candidate for crutches due to upper body weakness and shoulder pain as well as poor balance.? Patient will require a wheelchair for 90 days to assist with nonweightbearing status.
--- NOTE | 2021-11-11 12:58 | XR_ITS ---
WS: [id number] Right foot, 3 views, 11/11/2021, 1307 hours. Clinical Data: post op Comparison: Right foot, 11/11/2021, 1149 hours Findings: The second through fifth toes have been amputated. The right first toe was amputated earlier. XR/XR foot RT min 3V* [id number] Impression: Amputation of the right foot second through fifth toes.
[2021-11-11] MEDS: fentaNYL 50 mcg/mL INJ 2mL IVP (13:22)
--- NOTE | 2021-11-11 15:34 | ANE.PACU2 ---
Inpatient post-anesthesia follow up: Airway intact: Yes Vital signs: Temperature 97.2 F Pulse Rate 80 Respiratory Rate 16 Blood Pressure 142/7 Pulse Oximetry 93 Oxygen Delivery Me thod Room Air Oxygen Flow Rate 5 Fraction of Inspir ed Oxygen Hydration adequate: Yes Nausea and vomiting: No Pain level: 1 Mental status: Baseline
== END 2021-11-11 14:26 | disposition home or self-care (01) ==
PROVIDERS: PCP Family Medicine; Visit Provider Podiatrist Foot & Ankle Surgery
PROC: (CPT 27606; principal; 2021-11-11 10:20)
PROC: (CPT 28261; 2021-11-11 10:20)
DX: M20.41 Other hammer toe(s) (acquired), right foot (principal); L97.511 Non-pressure chronic ulcer of other part of right foot limited to breakdown of skin; Z86.16 Personal history of COVID-19; Z95.1 Presence of aortocoronary bypass graft; F32.9 Major depressive disorder, single episode, unspecified; E03.9 Hypothyroidism, unspecified; Z99.3 Dependence on wheelchair; G60.9 Hereditary and idiopathic neuropathy, unspecified; I10 Essential (primary) hypertension; M21.861 Other specified acquired deformities of right lower leg
CPT/HCPCS: 27606; 28805; 73620; 73630; 88307; 88311; J1100; J1200; J2250; J2405; J2704; J3010; J3490; J7030

== ENCOUNTER → 2021-11-24 14:04 | Outpatient (BNVA) | payer MEDICARE, MEDICAID, SELFPAY ==
[2021-11-10 17:20] VITALS: BP 139/99; BMI 28.1
== END ==
PROVIDERS: PCP Family Medicine; Visit Provider Podiatrist Foot & Ankle Surgery
DX: M25.571 Pain in right ankle and joints of right foot (principal)
CPT/HCPCS: 73610

== ENCOUNTER 2021-12-13 18:11 | Emergency (ER) | payer MEDICARE, MEDICAID, SELFPAY ==
[2021-11-10 17:20] VITALS: BP 139/99; BMI 28.1
[2021-12-13 18:27] VITALS: BP 127/80; PULSE 100; RESP 18; TEMP 37.2; O2SAT 95; BMI 29.0
--- NOTE | 2021-12-13 18:38 | XRR_ITS ---
PROCEDURE INFORMATION: Exam: XR Right Knee Exam date and time: 12/13/2021 6:52 PM Age: 55 years old Clinical indication: Injury or trauma; Fall; Sprain or strain; Lower leg; Right TECHNIQUE: Imaging protocol: XR Right knee. Views: 3 views. COMPARISON: CR XR ankle RT min 3V* [id number] 11/24/2021 2:11 PM FINDINGS: Bones/joints: No fracture or other acute osseous abnormality. No significant joint effusion. Soft tissues: The soft tissues appear unremarkable. Other findings: Mild degenerative narrowing of the medial, lateral, and anterior compartments. XR/XR knee RT 3V* [id number] IMPRESSION: No acute abnormality demonstrated.
--- NOTE | 2021-12-13 18:38 | W.ED.EXTPRO ---
HPI - Extremity Problem General: Chief complaint: Extremity Injury, Lower Stated complaint: Knee pain Time Seen by Provider: 12/13/21 18:33 History of Present Illness: 55-year-old female comes in today with injury to the right knee. Patient has a history of hip replacement to the right hip. Patient reports 1 week ago she was ambulating and tripped and fell striking her knee against the ground. Patient has continued pain and discomfort to the right knee and was concerned there may be a fracture or other injury. Patient appears in mild to moderate pain. Associated symptoms: Deny chest pain Review of Systems General: Reports: 10 or more systems reviewed and unremarkable except in HPI and below Card: Denies: chest pain Resp: Denies: dyspnea Musc: Reports: joint pain (Right knee pain) PFSH ED PFSH: Medical History Benign essential HTN Cataract COVID-19 Fungal pneumonia Generalized anxiety disorder Hx of chest pain Hx of shortness of breath Hypothyroidism Incontinence in female Major depressive disorder, recurrent severe without psychotic features Methadone dependence Microcytic anemia Neuropathy Other urethral stricture, female Post-traumatic stress disorder, chronic Post-traumatic stress disorder, unspecified Psychiatric care Respiratory failure Surgical History H/O gastric bypass H/O: hysterectomy History of amputation of great toe of both feet History of cholecystectomy History of esophagogastroduodenoscopy (EGD) History of reconstructive repair of rectocele History of total right hip replacement Hx of appendectomy Family History Father , AT AGE 62 Cancer PROSTATE CANCER Grandmother Stroke Denies family history of Anesthesia complication Bleeding disorder Social History Smoking and tobacco status: never smoked Second hand smoke exposure: No Alcohol intake: never Adopted: Yes (Grandparents adopted her.) Caregiver/support person: No Lives independently: Yes Household members: none Housing: Apartment Marital status: / Marital status details: for 21 years Number of children: 2 Number of grandchildren: 4 Highest education level completed: Associate Degree: Occupational, Technical, Vocational Program 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 School service: No Current occupational status: disabled Current occupational exposures/hazards: No Pets and animals: Yes (2) Pets & animals: cat(s) History of recent travel: No Leisure activites: reading and other Leisure activities details: Watch TV Sexually active: No Current gender identity: Female Ekta/Spiritism: Evangelical Special ekta needs: No Agree to transfusion: Yes Financial difficulty paying for basics: Somewhat Hard Female Reproductive History: Para: 2 Spontaneous abortions: No Physical Exam Const: COMMON NORMALS: alert HENMT: COMMON NORMALS: atraumatic HEAD & SCALP: atraumatic Neck/C-Spine: COMMON NORMALS: full ROM Resp: COMMON NORMALS: normal respiratory effort Cardio: COMMON NORMALS: regular rate and regular rhythm RATE: regular rate RHYTHM: regular rhythm Extremity: RIGHT LOWER EXTREMITY: Yes knee joint (Medial tenderness to the right knee joint normal range of motion) Right knee: Yes inspection, Yes palpation, Yes ROM and Yes neurovascular exam Neuro: SENSORIUM/ORIENTATION: Yes alert Course Vital Signs: Vital signs: Vital Signs Temperature 98.9 F 12/13/21 18:27 Pulse Rate 100 12/13/21 18:40 Respiratory Rate 18 12/13/21 18:40 Blood Pressure 127/80 12/13/21 18:40 Pulse Oximetry 95 12/13/21 18:40 MDM - Extremity (Nontraumatic) Medical Decision Making Patient comes in for injury to the right knee. On exam there is no specific swelling. Distal pulses and sensation are intact. Patient has tenderness to the lateral knee joint line. Differential diagnosis includes fracture, contusion, internal derangement of the knee. X-ray was negative for any significant abnormality. There was significant loss of joint spacing which may suggest some osteoarthritis. Recommended patient use hydrocodone 1 every 3 hours as needed for severe pain. Recommend continue activity as tolerated. Follow-up with primary care for further evaluation and treatment. Patient reported understanding. Discharge Plan Discharge Patient Disposition: Home Clinical Impression: Acute pain of right knee Condition: Stable Prescriptions: Continued hydrocodone-acetaminophen 5-325 mg tablet 1 tab PO Q8H PRN (Reason: pain) 5 Days Qty: 10 0RF No Action gabapentin 600 mg tablet 1,200 mg PO TID 0RF oxybutynin chloride 5 mg tablet 5 mg PO BID 0RF duloxetine 60 mg capsule,delayed release(DR/EC) 120 mg PO DAILY Qty: 60 2RF prazosin 5 mg capsule 5 mg PO .HS Qty: 30 2RF trazodone 100 mg tablet 200 mg PO .HS Qty: 60 2RF clonazepam 1 mg tablet 1 mg PO BID PRN (Reason: Anxiety) 0RF (DME) diabetic shoes with bilateral toe fillers See Rx Instructions .Route .MEDSUPPLY Qty: 1 0RF Rx Instructions: As directed (DME) wheelchair See Rx Instructions .Route .MEDSUPPLY Qty: 1 0RF Rx Instructions: As directed ibuprofen [Advil] 200 mg Tablet 400 mg PO Q6H PRN (Reason: Pain) 0RF levothyroxine 75 mcg tablet 75 mcg PO QAM 0RF amitriptyline 100 mg tablet 200 mg PO BEDTIME 0RF Discharge Orders: Discharge ED (Routine); Ordered 12/13/21 Ordered By: Jalen Billings Referrals: Yaya Myles MD [Primary Care Provider] - Discharge Diet: Usual diet Discharge Activity: Increase activity as tolerated Patient Instructions: Knee Pain (ED) Activity Restrictions/Additional Instructions: You have most likely injured your knee probably the meniscus although it may be bruising which is causing your pain along with inflammation. At this time I did recommend pain control and activity as tolerated. Even with meniscal tears most people do not require surgery and are able to return to normal activity. I would recommend following up with primary care in 1 week for further evaluation and treatment. Return to ER for new concerns or worsening symptoms. Coding Level of Care Code ED Data Communications Technician for Barbra Keith
[2021-12-13 18:40] VITALS: BP 127/80; PULSE 100; RESP 18; O2SAT 95
[2021-12-13] MEDS: HYDROcodone-acetaminophen 5-325 mg Tablet 1 TAB PO (20:00)
== END 2021-12-13 20:04 | disposition home or self-care (01) ==
PROVIDERS: Emergency Provider Nurse Practitioner Family; PCP Family Medicine
DX: M25.561 Pain in right knee (principal); I10 Essential (primary) hypertension; Z96.641 Presence of right artificial hip joint
CPT/HCPCS: 73562; 99283

== ENCOUNTER 2022-02-09 12:38 | Outpatient (CLI) | payer MEDICARE, MEDICAID, SELFPAY ==
[2021-11-10 17:20] VITALS: BP 139/99; BMI 28.1
--- NOTE | 2022-02-09 12:49 | XR_ITS ---
WS: [id number] Chest 2 views, 02/09/2022 Clinical Data: COUGH/DYSPNEA/WEAKNESS Comparison: Portable chest, 07/30/2021. Findings: No nodules, masses or effusions are seen. The heart is normal. The pulmonary vascularity is not increased. No pneumonia or pneumothorax is seen. The increased interstitial lung markings remain the same. XR/XR chest 2V* [id number] Impression: Chronic interstitial lung disease.
--- NOTE | 2022-02-09 14:28 | PFTS_ITS ---
Date of Study:02/09/22 Date of Dictation: MECHANICS: Forced vital capacity (FVC) is reduced. Forced expiratory volume in one second (FEV1) is normal. FEV1/FVC is normal. FLOW VOLUME LOOP: Normal. LUNG VOLUMES: Total lung capacity (TLC) is reduced. Residual volume (RV) is reduced. DIFFUSING CAPACITY FOR CARBON MONOXIDE: Minimally reduced. INTERPRETATION: The prebronchodilator spirometry is consistent with mild restriction. No postbronchodilator spirometry was performed. Lung volumes are consistent with mild restriction. Gas exchange (DLCO) is mildly reduced. MTDD
== END 2022-02-09 12:39 | disposition home or self-care (01) ==
LOC: RAD 12:40
PROVIDERS: PCP Family Medicine; Visit Provider Family Medicine
DX: J84.9 Interstitial pulmonary disease, unspecified (principal); R06.02 Shortness of breath; R05.9 Cough, unspecified
CPT/HCPCS: 71046; 94010; 94726; 94729

== ENCOUNTER 2022-03-04 15:15 | Emergency (ER) | payer MEDICARE, MEDICAID, SELFPAY ==
[2021-11-10 17:20] VITALS: BP 139/99; BMI 28.1
[2022-03-04 15:28] VITALS: BP 142/70; PULSE 106; RESP 16; TEMP 37.7; O2SAT 94; BMI 32.0
--- NOTE | 2022-03-04 15:35 | W.ED.BACK ---
HPI - Back Pain/Injury General: Chief Complaint: Back Pain/Injury Stated Complaint: severe back pain Time Seen by Provider: 03/04/22 15:35 History of Present Illness: 56-year-old female comes in today with low back pain for the last 3 days. Patient does not recall any recent falls or injuries. Patient has recently had her feet operated on due to needing amputation of the toes. Patient has recently been fitted with new shoes and has been up walking more. Patient does report episodes of sleepwalking but does not think she fell in her sleep. Patient does report some chronic bladder incontinence but no loss of bowel control. Associated symptoms: Deny change in bowel habits, fecal incontinence, fever(s), nausea or vomiting Review of Systems Const: Denies: fever(s) Card: Denies: chest pain Resp: Denies: dyspnea GI: Denies: nausea, vomiting, fecal incontinence or change in bowel habits : Reports: urinary incontinence Musc: Reports: back pain PFSH ED PFSH: Medical History Benign essential HTN Cataract COVID-19 Fungal pneumonia Generalized anxiety disorder Hx of chest pain Hx of shortness of breath Hypothyroidism Incontinence in female Major depressive disorder, recurrent severe without psychotic features Methadone dependence Microcytic anemia Neuropathy Other urethral stricture, female Post-traumatic stress disorder, chronic Post-traumatic stress disorder, unspecified Psychiatric care Respiratory failure Surgical History H/O gastric bypass H/O: hysterectomy History of amputation of great toe of both feet History of cholecystectomy History of esophagogastroduodenoscopy (EGD) History of reconstructive repair of rectocele History of total right hip replacement Hx of appendectomy Family History Father , AT AGE 62 Cancer PROSTATE CANCER Grandmother Stroke Denies family history of Anesthesia complication Bleeding disorder Social History Smoking and tobacco status: never smoked Second hand smoke exposure: No Alcohol intake: never Adopted: Yes (Grandparents adopted her.) Caregiver/support person: No Lives independently: Yes Household members: none Housing: Apartment Marital status: / Marital status details: for 21 years Number of children: 2 Number of grandchildren: 4 Highest education level completed: Associate Degree: Occupational, Technical, Vocational Program 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 School service: No Current occupational status: disabled Current occupational exposures/hazards: No Pets and animals: Yes (2) Pets & animals: cat(s) History of recent travel: No Leisure activites: reading and other Leisure activities details: Watch TV Sexually active: No Current gender identity: Female Ekta/Catholic: Religion Special ekta needs: No Agree to transfusion: Yes Financial difficulty paying for basics: Somewhat Hard Female Reproductive History: Para: 2 Spontaneous abortions: No Physical Exam Const: COMMON NORMALS: alert HENMT: COMMON NORMALS: normocephalic HEAD & SCALP: normocephalic Neck/C-Spine: COMMON NORMALS: full ROM Resp: COMMON NORMALS: normal respiratory effort Cardio: COMMON NORMALS: regular rate RATE: regular rate Back/Pelvis: THORACIC SPINE/UPPER BACK: No thoracic spinal tenderness and No paraspinal muscle tenderness LUMBAR SPINE/LOWER BACK: Yes lumbar spinal tenderness and Yes paraspinal muscle spasm Lumbar paraspinal muscle spasm: bilateral Extremity: COMMON NORMALS: no pedal edema Neuro: SENSORIUM/ORIENTATION: Yes alert Skin: COMMON NORMALS: no rashes or lesions noted GENERAL SKIN EXAM: no rashes or lesions noted Course Vital Signs: Vital signs: Vital Signs Temperature 99.9 F H 03/04/22 15:28 Pulse Rate 106 H 03/04/22 15:28 Respiratory Rate 16 03/04/22 15:28 Blood Pressure 142/70 03/04/22 15:28 Pulse Oximetry 94 03/04/22 15:28 MDM - Back Pain/Injury Medical Decision Making 56-year-old female comes in today with complaints of low back pain. On exam patient has some palpable tenderness in the lower lumbar spine. Paraspinous muscle tenderness is also noted. Patient has bilateral general weakness in the legs most likely due to deconditioning. Patient does have some vascular abnormalities in the lower extremities causing her to have amputations of her toes on her feet. Patient denies diabetes. Differential diagnosis includes intervertebral disc disease, facet arthropathy, vertebral compression fracture. X-rays of the lumbar spine indicated no fractures. Reviewed exam with patient with recommendations for treatment of pain and discomfort. Patient was given 10 mg dexamethasone IM to help with inflammation. Patient reported understanding of care plan and need for follow-up or return to the ER. Discharge Plan Discharge Patient Disposition: Home Clinical Impression: Low back pain Qualifiers: Chronicity: acute Back pain laterality: bilateral Sciatica presence: without sciatica Qualified Code(s): M54.50 - Low back pain, unspecified Condition: Stable Prescriptions: New diclofenac sodium 75 mg tablet,delayed release (DR/EC) 75 mg PO BID Qty: 20 0RF tizanidine 4 mg tablet 4 mg PO Q8H PRN (Reason: muscle spasticity) Qty: 14 0RF No Action gabapentin 600 mg tablet 1,200 mg PO TID 0RF oxybutynin chloride 5 mg tablet 5 mg PO BID 0RF clonazepam 1 mg tablet 1 mg PO BID PRN (Reason: Anxiety) 0RF (DME) diabetic shoes with bilateral toe fillers See Rx Instructions .Route .MEDSUPPLY Qty: 1 0RF Rx Instructions: As directed (DME) walker Misc See Rx Instructions .ROUTE 0RF Rx Instructions: As directed duloxetine 60 mg capsule,delayed release(DR/EC) 120 mg PO DAILY Qty: 60 2RF prazosin 5 mg capsule 5 mg PO .HS Qty: 30 2RF hydroxyzine HCl 50 mg tablet 100 mg PO .HS PRN (Reason: insomnia) Qty: 60 2RF ibuprofen [Advil] 200 mg Tablet 400 mg PO Q6H PRN (Reason: Pain) 0RF levothyroxine 75 mcg tablet 75 mcg PO QAM 0RF amitriptyline 100 mg tablet 200 mg PO BEDTIME 0RF Discharge Orders: Discharge ED (Routine); Ordered 03/04/22 Ordered By: Jalen Billings Referrals: Yaya Myles MD [Primary Care Provider] - Discharge Diet: Usual diet Discharge Activity: Increase activity as tolerated Patient Instructions: Back Pain (ED) Activity Restrictions/Additional Instructions: Activity as tolerated. Gentle stretching and range of motion exercises will help back pain recovery. Drink plenty of water with medication. Use diclofenac twice daily to help with pain and inflammation. Use tizanidine every 8 hours as needed for muscle spasms in the low back. Use acetaminophen, [id number] Tylenol, for further pain relief. Do not use ibuprofen or naproxen while taking diclofenac. Follow-up with primary care in 3 days for recheck. Return to ER for high fever greater than 100.4, uncontrolled pain, or new concerns. Coding Level of Care Code ED Radiology Nurse for Chg Fwd Exam Comprehensive
--- NOTE | 2022-03-04 16:08 | XRR_ITS ---
PROCEDURE INFORMATION: Exam: XR Lumbosacral Spine Exam date and time: 03/04/2022 4:13 PM Age: 56 years old Clinical indication: Pain; Lumbago with sciatica; Additional info: Low back pain TECHNIQUE: Imaging protocol: XR of the lumbosacral spine. Views: 2 or 3 views. COMPARISON: MRI Lumbar Spine w/o [id number] 10/01/2018 1:08 PM FINDINGS: Bones/joints: The vertebral body alignment and stature is intact. No fracture identified. Mild degenerative endplate changes. The disc spaces are maintained. Trace retrograde degenerative subluxations of L3 on L4 and L4 on L5. Soft tissues: Unremarkable. XR/XR lumbar spine 2-3V* [id number] IMPRESSION: No acute finding.
[2022-03-04] MEDS: dexamethasone 10 mg/mL INJ IM (16:35)
[2022-03-04] MEDS: ketorolac 30 mg/mL INJ IM (16:36)
== END 2022-03-04 16:47 | disposition home or self-care (01) ==
PROVIDERS: Emergency Provider Nurse Practitioner Family; PCP Family Medicine
DX: M54.50 Low back pain, unspecified (principal); Z89.429 Acquired absence of other toe(s), unspecified side; N39.498 Other specified urinary incontinence
CPT/HCPCS: 72100; 96372; 99283; J1100; J1885

== ENCOUNTER 2022-03-17 03:11 | Emergency (ER) | payer MEDICARE, MEDICAID, SELFPAY ==
[2021-11-10 17:20] VITALS: BP 139/99; BMI 28.1
[2022-03-17 03:42] VITALS: BP 129/100; PULSE 98; RESP 18; TEMP 36.7; O2SAT 95; BMI 31.6
--- NOTE | 2022-03-17 03:46 | XRR_ITS ---
PROCEDURE INFORMATION: Exam: XR Left Knee Exam date and time: 03/17/2022 4:01 AM Age: 56 years old Clinical indication: Injury or trauma; Fall; Blunt trauma; Patient HX: Patient fell about one hour ago and sustained a twisting injury to left knee. TECHNIQUE: Imaging protocol: Radiologic exam of the Left knee. Views: 3 views. COMPARISON: CR XR knee LT 3V* [id number] 09/25/2019 3:31 PM FINDINGS: Bones/joints: There is a moderate loss of joint space seen in the mediolateral compartments of the left knee compatible with degenerative joint disease. There is an acute fracture of the medial tibial spine. There is a moderate anterior joint effusion the left knee. A hemarthrosis cannot be excluded. Soft tissues: Normal. XR/XR knee LT 3V* [id number] IMPRESSION: 1. Acute avulsion fracture of the medial tibial spine. 2. Moderate anterior joint effusion of the left knee. A hemarthrosis cannot be excluded.
[2022-03-17 03:47] VITALS: BP 121/85; PULSE 108; RESP 18; O2SAT 95
--- NOTE | 2022-03-17 03:47 | W.ED.LOWEXIN ---
HPI - Extremity Injury (Lower) General: Chief Complaint: Fall Stated Complaint: L leg injury Time Seen by Provider: 03/17/22 03:13 Source: patient Mode of arrival: ambulatory Limitations: no limitations History of Present Illness: 56-year-old female states that she was moving into her apartment roughly 45 minutes ago states she was walking in slipped and fell. She states she fell on her left knee and felt a pop she been having pain over the medial aspect of her left knee since then. States pain sharp in nature rates it a 5 out of 10 its better with rest its worse with walking states she has not been able to bear weight on it. Review of Systems Const: Denies: fever(s), chills, body aches or change in appetite Eyes: Denies: blurry vision or eye discomfort ENMT: Denies: throat pain or dental pain Card: Denies: chest pain Resp: Denies: dyspnea GI: Denies: abdominal pain, nausea, vomiting or diarrhea : Denies: dysuria Musc: Reports: extremity pain Skin/Breast: Denies: rash Neuro: Denies: headache(s) Psych: Denies: depression Neil/Lymph: Denies: easy bruising All/Imm: Denies: urticaria PFSH ED PFSH: Medical History Benign essential HTN Cataract COVID-19 Fungal pneumonia Generalized anxiety disorder Hx of chest pain Hx of shortness of breath Hypothyroidism Incontinence in female Major depressive disorder, recurrent severe without psychotic features Methadone dependence Microcytic anemia Neuropathy Other urethral stricture, female Post-traumatic stress disorder, chronic Post-traumatic stress disorder, unspecified Psychiatric care Respiratory failure Surgical History H/O gastric bypass H/O: hysterectomy History of amputation of great toe of both feet History of cholecystectomy History of esophagogastroduodenoscopy (EGD) History of reconstructive repair of rectocele History of total right hip replacement Hx of appendectomy Family History Father , AT AGE 62 Cancer PROSTATE CANCER Grandmother Stroke Denies family history of Anesthesia complication Bleeding disorder Social History Smoking and tobacco status: never smoked Second hand smoke exposure: No Alcohol intake: never Adopted: Yes (Grandparents adopted her.) Caregiver/support person: No Lives independently: Yes Household members: none Housing: Apartment Marital status: / Marital status details: for 21 years Number of children: 2 Number of grandchildren: 4 Highest education level completed: Associate Degree: Occupational, Technical, Vocational Program 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 School service: No Current occupational status: disabled Current occupational exposures/hazards: No Pets and animals: Yes (2) Pets & animals: cat(s) History of recent travel: No Leisure activites: reading and other Leisure activities details: Watch TV Sexually active: No Current gender identity: Female Ekta/Confucianist: Scientology Special ekta needs: No Agree to transfusion: Yes Financial difficulty paying for basics: Somewhat Hard Female Reproductive History: Para: 2 Spontaneous abortions: No Physical Exam Const: COMMON NORMALS: no acute distress, patient oriented x3 and healthy appearing HENMT: COMMON NORMALS: normocephalic and atraumatic HEAD & SCALP: normocephalic and atraumatic Eye: COMMON NORMALS: Equal, round and reactive pupils present and EOMs intact bilaterally PUPIL: Yes Equal, round and reactive pupils present Neck/C-Spine: COMMON NORMALS: full ROM and supple Chest: COMMONS NORMALS: normal inspection of the chest and normal palpation of entire chest wall Resp: COMMON NORMALS: normal respiratory effort, No retractions, No use of accessory muscles and clear to auscultation bilaterally AUSCULTATION: clear to auscultation bilaterally Cardio: COMMON NORMALS: regular rate, regular rhythm and No murmurs present (Cardio) RATE: regular rate RHYTHM: regular rhythm GI: COMMON NORMALS: Normal to inspection, nondistended, normoactive bowel sounds present, Soft to palpation, non-tender and no masses PALPATION: Yes Soft to palpation Extremity: NARRATIVE EXTREMITY EXAM: tenderness over medial aspect of left knee no obvious deformity Neuro: COMMON NORMALS: patient oriented x3, moves all extremities and no focal motor deficits Psych: COMMON NORMALS: mental status grossly normal, Normal thought process present and cooperative THOUGHT PROCESS: Normal thought process present Skin: COMMON NORMALS: no rashes or lesions noted and no wounds GENERAL SKIN EXAM: no rashes or lesions noted Course Vital Signs: Vital signs: Vital Signs Temperature 98.0 F 03/17/22 03:42 Pulse Rate 108 H 03/17/22 03:47 Respiratory Rate 18 03/17/22 03:47 Blood Pressure 121/85 03/17/22 03:47 Pulse Oximetry 95 03/17/22 03:47 MDM - Extremity Injury (Lower) Medical Decision Making Patient presents with a likely proximal tibial spine fracture. I did speak to Dr. Murry we will place patient in knee immobilizer she is to be nonweightbearing we will give her crutches as well she is to follow-up with Dr. Murry return if worsening she understands agrees to plan. Discharge Plan Discharge Patient Disposition: Home Clinical Impression: Fracture of proximal end of left tibia Qualifiers: Encounter type: initial encounter Fracture type: closed Fracture morphology: unspecified fracture morphology Qualified Code(s): S82.102A - Unspecified fracture of upper end of left tibia, initial encounter for closed fracture Condition: Stable Prescriptions: New hydrocodone-acetaminophen 5-325 mg tablet 1 tab PO Q6H PRN (Reason: pain) Qty: 14 0RF No Action gabapentin 600 mg tablet 1,200 mg PO TID 0RF oxybutynin chloride 5 mg tablet 5 mg PO BID 0RF clonazepam 1 mg tablet 1 mg PO BID PRN (Reason: Anxiety) 0RF (DME) diabetic shoes with bilateral toe fillers See Rx Instructions .Route .MEDSUPPLY Qty: 1 0RF Rx Instructions: As directed (DME) torri Misc See Rx Instructions .ROUTE 0RF Rx Instructions: As directed duloxetine 60 mg capsule,delayed release(DR/EC) 120 mg PO DAILY Qty: 60 2RF prazosin 5 mg capsule 5 mg PO .HS Qty: 30 2RF hydroxyzine HCl 50 mg tablet 100 mg PO .HS PRN (Reason: insomnia) Qty: 60 2RF ibuprofen [Advil] 200 mg Tablet 400 mg PO Q6H PRN (Reason: Pain) 0RF levothyroxine 75 mcg tablet 75 mcg PO QAM 0RF amitriptyline 100 mg tablet 200 mg PO BEDTIME 0RF diclofenac sodium 75 mg tablet,delayed release (DR/EC) 75 mg PO BID Qty: 20 0RF tizanidine 4 mg tablet 4 mg PO Q8H PRN (Reason: muscle spasticity) Qty: 14 0RF Discharge Orders: Discharge ED (Routine); Ordered 03/17/22 Ordered By: Alex Pelaez Referrals: Matthew Murry DO [Physician] - 1-3 days Yaya Myles MD [Primary Care Provider] - Discharge Diet: Advance as tolerated Discharge Activity: Use walker/crutches as instructed Patient Instructions: Leg Fracture (ED), Knee Immobilizer (ED), Opioid Safety Coding Level of Care Code ED Clay Artisan for Chg Fwd Exam Comprehensive
[2022-03-17] MEDS: HYDROcodone-acetaminophen 5-325 mg Tablet 1 TAB PO ×2 (03:50→04:47)
--- NOTE | 2022-03-17 04:10 | CTR_ITS ---
PROCEDURE INFORMATION: Exam: CT Left Lower Extremity Without Contrast, Knee Exam date and time: 03/17/2022 4:25 AM Age: 56 years old Clinical indication: Injury or trauma; Blunt trauma; Knee; Patient HX: Sustained twisting injury from a fall this morning. Unable to bear weight on left leg. ; Additional info: Knee FX TECHNIQUE: Imaging protocol: CT of the Left lower extremity without contrast was performed. Exam focused on the knee. Radiation optimization: All CT scans at this facility use at least one of these dose optimization techniques: automated exposure control; mA and/or kV adjustment per patient size (includes targeted exams where dose is matched to clinical indication); or iterative reconstruction. COMPARISON: CR (LOW EXM, ) 03/17/2022 4:01 AM RADIATION DOSE METRICS: Total DLP (mGy-cm): 205.96 FINDINGS: Bones/joints: There is an acute avulsion fracture of the medial tibial spine. Prominent lipohemarthrosis is seen within the anterior compartment. Soft tissues: Normal. CT/CT knee LT wo con* [id number] IMPRESSION: 1. Acute avulsion fracture of the medial tibial spine. 2. Prominent lipohemarthrosis within the anterior compartment.
[2022-03-17 04:48] VITALS: BP 123/81; RESP 18; O2SAT 95
--- NOTE | 2022-03-17 15:16 | DCPLANNER ---
Addendum entered by Sejal Porter 04/17/22 10:55: Patient had a follow up appointment scheduled for 03.21.22 with Corky Ariza at ortho - patient did attend appointment. Original Note: market research manager had message to schedule a follow up appointment for patient with ortho. market research manager sent patients information to the front office at ortho. Patients information will be printed and reviewed. Clinic will madhav patient with appointment information.
== END 2022-03-17 04:54 | disposition home or self-care (01) ==
PROVIDERS: Emergency Provider Emergency Medicine; PCP Family Medicine
DX: S82.102A Unspecified fracture of upper end of left tibia, initial encounter for closed fracture (principal); I10 Essential (primary) hypertension; W01.0XXA Fall on same level from slipping, tripping and stumbling without subsequent striking against object, initial encounter; X58.XXXA Exposure to other specified factors, initial encounter
CPT/HCPCS: 29530; 73562; 73700; 96374; 99283; 99284; E0114; J1170

== ENCOUNTER 2022-03-17 15:18 | Emergency (ER) | payer MEDICARE, MEDICAID, SELFPAY ==
[2021-11-10 17:20] VITALS: BP 139/99; BMI 28.1
[2022-03-17 15:39] VITALS: BP 129/84; PULSE 103; RESP 18; TEMP 37.4; O2SAT 94; BMI 33.2
--- NOTE | 2022-03-17 17:20 | W.ED.GENADLT ---
HPI - General Adult General: Chief complaint: Extremity Injury, Lower Stated complaint: pain due to broke leg Time Seen by Provider: 03/17/22 15:38 History of Present Illness: Patient is a 56-year-old female who was diagnosed earlier today with proximal tibial fracture presenting to the emergency room with concerns of worsening leg pain. Patient tells me that he was placed in a leg immobilizer with close follow-up with Dr. Murry outpatient. Since discharge from hospital, patient has been taking her Percocet but reports her pain is not controlled. Patient has a history of prior opiate dependence and tells me that she is more eager to quit. However because of the significant pain, patient came to the emergency room for evaluation. Denies nauesea/vomiting, fever/chill, chest pain, shortness of breath, abdominal pain, dysuria/hematuria/polyuria, diarrhea/melena/hematochezia. Onset: 16 hrs ago Duration:16 hrs Location:home Severity:moderate Associated symptoms: Deny chest pain, dyspnea, nausea, rash, palpitations or vomiting Review of Systems Const: Denies: fever(s) or chills Eyes: Denies: change in vision ENMT: Denies: mouth pain Card: Denies: chest pain or palpitations Resp: Denies: dyspnea or non-productive cough GI: Denies: abdominal pain, nausea, vomiting or diarrhea : Denies: dysuria Musc: Reports: extremity pain (+l leg pain) Skin/Breast: Denies: rash or new lesions Neuro: Denies: weakness in extremities Psych: Reports: other (Normal mood) Neil/Lymph: Denies: easy bruising PFSH ED PFSH: Medical History Benign essential HTN Cataract COVID-19 Fungal pneumonia Generalized anxiety disorder Hx of chest pain Hx of shortness of breath Hypothyroidism Incontinence in female Major depressive disorder, recurrent severe without psychotic features Methadone dependence Microcytic anemia Neuropathy Other urethral stricture, female Post-traumatic stress disorder, chronic Post-traumatic stress disorder, unspecified Psychiatric care Respiratory failure Surgical History H/O gastric bypass H/O: hysterectomy History of amputation of great toe of both feet History of cholecystectomy History of esophagogastroduodenoscopy (EGD) History of reconstructive repair of rectocele History of total right hip replacement Hx of appendectomy Family History Father , AT AGE 62 Cancer PROSTATE CANCER Grandmother Stroke Denies family history of Anesthesia complication Bleeding disorder Social History Smoking and tobacco status: never smoked Second hand smoke exposure: No Alcohol intake: never Adopted: Yes (Grandparents adopted her.) Caregiver/support person: No Lives independently: Yes Household members: none Housing: Apartment Marital status: / Marital status details: for 21 years Number of children: 2 Number of grandchildren: 4 Highest education level completed: Associate Degree: Occupational, Technical, Vocational Program 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 School service: No Current occupational status: disabled Current occupational exposures/hazards: No Pets and animals: Yes (2) Pets & animals: cat(s) History of recent travel: No Leisure activites: reading and other Leisure activities details: Watch TV Sexually active: No Current gender identity: Female Ekta/Catholic: Zoroastrian Special ekta needs: No Agree to transfusion: Yes Financial difficulty paying for basics: Somewhat Hard Female Reproductive History: Para: 2 Spontaneous abortions: No Physical Exam Const: COMMON NORMALS: alert HENMT: COMMON NORMALS: atraumatic HEAD & SCALP: atraumatic MOUTH: moist mucous membranes not abnormal Eye: COMMON NORMALS: EOMs intact bilaterally and conjunctivae normal CONJUNCTIVA: Yes conjunctivae normal Neck/C-Spine: COMMON NORMALS: full ROM and supple Resp: COMMON NORMALS: normal respiratory effort and clear to auscultation bilaterally AUSCULTATION: clear to auscultation bilaterally Cardio: COMMON NORMALS: regular rate RATE: regular rate GI: COMMON NORMALS: Soft to palpation and non-tender PALPATION: Yes Soft to palpation Extremity: NARRATIVE EXTREMITY EXAM: +L knee/proximal tibial pain Neuro: SENSORIUM/ORIENTATION: Yes alert MOTOR EXAM: No Abnormal motor strength present and Other motor observations present (no focal motor deficits) Psych: COMMON NORMALS: speech normal SPEECH: Yes normal speech MOOD & AFFECT: Yes euthymic mood Course Vital Signs: Vital signs: Vital Signs Temperature 99.3 F 03/17/22 15:39 Pulse Rate 103 H 03/17/22 15:39 Respiratory Rate 24 H 03/17/22 17:28 Blood Pressure 129/84 03/17/22 15:39 Pulse Oximetry 95 03/17/22 17:28 [facility] - General Adult Medical Decision Making 56-year-old female presents emergency room with concerns of worsening pain after diagnosed with proximal tibial fracture. Patient has been using knee immobilizer with Percocet without improvement in pain. On exam, patient has intact neurovascular exam on the affected extremity. Given severe pain, she received 1 mg of Dilaudid with improvement in pain. Patient elects to go home at this time. Patient is instructed to discontinue existing opiate medication at home. Patient has an appointment with Dr. Murry outpatient. Rx dilaudid 2mg BID x 3 days PRN pain, narcan script Disposition: Discharge. Patient counseled regarding diagnostic impression, treatment plan. Patient given ED strict return precautions to return for continuation, worsening, or development of new symptoms. Instructed to f/u w/ Orthopedics and PCP regarding symptoms today. Patient verbalized understanding. Discharge Plan Discharge Patient Disposition: Home Clinical Impression: Acute leg pain, Closed tibial fracture Condition: Stable Prescriptions: New Dilaudid 2 mg tablet 2 mg PO BID PRN (Reason: pain) 3 Days Qty: 6 0RF Narcan 4 mg/actuation spray,non-aerosol 4 mg intranasal Q2M PRN (Reason: opioid overdose) Qty: 2 0RF Rx Instructions: spray 1 dose into ONE nostril; alternate nostrils w each dose until help arrives No Action gabapentin 600 mg tablet 1,200 mg PO TID 0RF oxybutynin chloride 5 mg tablet 5 mg PO BID 0RF clonazepam 1 mg tablet 1 mg PO BID PRN (Reason: Anxiety) 0RF (DME) diabetic shoes with bilateral toe fillers See Rx Instructions .Route .MEDSUPPLY Qty: 1 0RF Rx Instructions: As directed (DME) walker Misc See Rx Instructions .ROUTE 0RF Rx Instructions: As directed duloxetine 60 mg capsule,delayed release(DR/EC) 120 mg PO DAILY Qty: 60 2RF prazosin 5 mg capsule 5 mg PO .HS Qty: 30 2RF hydroxyzine HCl 50 mg tablet 100 mg PO .HS PRN (Reason: insomnia) Qty: 60 2RF ibuprofen [Advil] 200 mg Tablet 400 mg PO Q6H PRN (Reason: Pain) 0RF levothyroxine 75 mcg tablet 75 mcg PO QAM 0RF amitriptyline 100 mg tablet 200 mg PO BEDTIME 0RF diclofenac sodium 75 mg tablet,delayed release (DR/EC) 75 mg PO BID Qty: 20 0RF tizanidine 4 mg tablet 4 mg PO Q8H PRN (Reason: muscle spasticity) Qty: 14 0RF hydrocodone-acetaminophen 5-325 mg tablet 1 tab PO Q6H PRN (Reason: pain) Qty: 14 0RF Discharge Orders: Discharge ED (Routine); Ordered 03/17/22 Ordered By: Bonnie Anna Referrals: Yaya Myles MD [Primary Care Provider] - Discharge Diet: Advance as tolerated Discharge Activity: Increase activity as tolerated Patient Instructions: Leg Pain (ED), Opioid Safety Activity Restrictions/Additional Instructions: Follow-up with Dr. Murry. Come back to the emergency room any new or concerning complaints. Please use your narcan script if you need opiate reversal. Have someone watch you at all times when you are opiates. Please do not operate heavy machinery, breathe on your own, driving or when you are under the influence of opiate. Coding Level of Care Code ED Glass Loading Equipment Tender for Rajg Fwd Exam Comprehensive
[2022-03-17 17:27] VITALS: RESP 24
[2022-03-17] MEDS: HYDROmorphone 1 mg/mL INJ 1 mL 0.5 MG IVP (17:27)
--- NOTE | 2022-03-17 17:27 | PC.NURSE ---
Patient vitals stable before admin of pain medication, verified twice with Dr. Anna about admin of pain medication, he is okay with it.
[2022-03-17 17:28] VITALS: RESP 24; O2SAT 95
[2022-03-17 17:57] VITALS: BP 123/75; PULSE 94; RESP 18; O2SAT 94
== END 2022-03-17 18:04 | disposition home or self-care (01) ==
PROVIDERS: Emergency Provider Emergency Medicine; PCP Family Medicine
DX: S82.102A Unspecified fracture of upper end of left tibia, initial encounter for closed fracture (principal); X58.XXXA Exposure to other specified factors, initial encounter; I10 Essential (primary) hypertension
CPT/HCPCS: 96374; 99284; J1170

== ENCOUNTER 2022-03-21 06:00 | Outpatient (CLI) | payer MEDICARE, SELFPAY ==
[2021-11-10 17:20] VITALS: BP 139/99; BMI 28.1
== END 2022-03-21 23:59 | disposition home or self-care (01) ==
LOC: SPT 03-22 14:43
PROVIDERS: PCP Family Medicine; Referring Provider Nurse Practitioner Family; Visit Provider Nurse Practitioner Family
DX: Z46.89 Encounter for fitting and adjustment of other specified devices (principal); S82.115D Nondisplaced fracture of left tibial spine, subsequent encounter for closed fracture with routine healing; X58.XXXD Exposure to other specified factors, subsequent encounter
CPT/HCPCS: 97760; L1832

== ENCOUNTER → 2022-03-21 08:47 | Outpatient (BNVA) | payer MEDICARE, SELFPAY ==
[2021-11-10 17:20] VITALS: BP 139/99; BMI 28.1
== END ==
PROVIDERS: PCP Family Medicine; Referring Provider Nurse Practitioner Family; Visit Provider Nurse Practitioner Family
DX: S82.112A Displaced fracture of left tibial spine, initial encounter for closed fracture (principal); W19.XXXA Unspecified fall, initial encounter
CPT/HCPCS: 99214

== ENCOUNTER → 2022-04-18 09:15 | Outpatient (BNVA) | payer MEDICARE, MEDICAID, SELFPAY ==
[2021-11-10 17:20] VITALS: BP 139/99; BMI 28.1
== END ==
PROVIDERS: PCP Family Medicine; Visit Provider Nurse Practitioner Family
DX: M25.572 Pain in left ankle and joints of left foot (principal); S82.113A Displaced fracture of unspecified tibial spine, initial encounter for closed fracture; M19.072 Primary osteoarthritis, left ankle and foot; W19.XXXA Unspecified fall, initial encounter
CPT/HCPCS: 73562; 73610; 99214

== ENCOUNTER → 2022-05-24 13:54 | Outpatient (BNVA) | payer MEDICARE, MEDICAID, SELFPAY ==
[2021-11-10 17:20] VITALS: BP 139/99; BMI 28.1
== END ==
PROVIDERS: PCP Family Medicine; Visit Provider Nurse Practitioner Family
DX: S82.112A Displaced fracture of left tibial spine, initial encounter for closed fracture (principal); M19.072 Primary osteoarthritis, left ankle and foot; W19.XXXA Unspecified fall, initial encounter
CPT/HCPCS: 73562; 73610; 99214

== ENCOUNTER → 2022-10-03 14:37 | Outpatient (BNVA) | payer MEDICARE, MEDICAID, SELFPAY ==
[2021-11-10 17:20] VITALS: BP 139/99; BMI 28.1
== END ==
PROVIDERS: PCP Family Medicine; Visit Provider Orthopaedic Surgery
DX: M21.42 Flat foot [pes planus] (acquired), left foot (principal)
CPT/HCPCS: 99213

== ENCOUNTER 2022-11-08 15:24 | Outpatient (CLI) | payer MEDICARE, MEDICAID, SELFPAY ==
[2021-11-10 17:20] VITALS: BP 139/99; BMI 28.1
== END 2022-11-08 15:25 | disposition home or self-care (01) ==
LOC: SPT 15:25
PROVIDERS: PCP Family Medicine; Visit Provider Podiatrist Foot & Ankle Surgery
DX: Z46.89 Encounter for fitting and adjustment of other specified devices (principal); M76.72 Peroneal tendinitis, left leg
CPT/HCPCS: 97760; 99214; L1902

== ENCOUNTER → 2022-12-05 14:39 | Outpatient (BNVA) | payer MEDICARE, MEDICAID, SELFPAY ==
[2021-11-10 17:20] VITALS: BP 139/99; BMI 28.1
== END ==
PROVIDERS: PCP Family Medicine; Visit Provider Podiatrist Foot & Ankle Surgery
DX: M76.822 Posterior tibial tendinitis, left leg (principal); Z89.432 Acquired absence of left foot; Z89.431 Acquired absence of right foot
CPT/HCPCS: 99214

== ENCOUNTER 2022-12-27 08:41 | Outpatient (CLI) | payer MEDICARE, MEDICAID, SELFPAY ==
[2021-11-10 17:20] VITALS: BP 139/99; BMI 28.1
--- NOTE | 2022-12-27 08:45 | MR_ITS ---
WS: [id number] EXAMINATION: MR ankle LT wo con* [id number] ORDER DATE: 12/27/2022 8:55 AM COMPARISON: None. HISTORY: to rule out tendon tear to left no injury CONTRAST: None. TECHNIQUE: Axial proton density fat sat, axial T1, sagittal proton density, sagittal STIR, coronal T2 fat sat, and coronal T1 sequences performed. After contrast, axial T1 fat sat, coronal T1 fat sat, and sagittal T1 fat sat were performed. FINDINGS: Osteopenia. Degenerative arthritis ankle mortise. Pes planus. Flattening of the talocalcaneal articul ation. Normal talar neck. Normal plantar aponeurosis. Tiny plantar calcaneal spur. Chronic appearing avulsion fracture tip of the lateral malleolus. No significant edema today. Chronic appearing tear of the ATF. PTF appears intact. Normal deltoid ligament. Normal medial malleolus. [place] ar dome is normal. No avascular necrosis in the talar dome. Diffuse increased signal abnormality invo lving the mid body Achilles with increased AP dimension compatible with tendinosis. Normal peroneal tendon sheath. Normal flexor compartment tendons. Trace tenosynovitis along the tibia lis posterior. Normal extensor compartment tendons. Normal talonavicular articulation. Normal cuboid. Base of 5th metatarsal appears normal. MR/MR ankle LT wo con* [id number] IMPRESSION: 1. Chronic appearing avulsion fracture at the tip of the lateral malleolus. No significant edema. Chronic tear of the ATF. 2. Mild flattening of the talocalcaneal articulation. 3. Diffuse thickening and increased signal abnormality involving the mid Achil les tendon compatible with tendinosis. Distal Achilles is normal in appearance. No fluid signal Achilles tears. 4. Normal peroneal tendon sheath. 5. Normal extensor and flexor compartment tendons. Trace tenosynovitis along t he tibialis posterior. 6. No other acute findings.
== END 2022-12-27 08:42 | disposition home or self-care (01) ==
PROVIDERS: PCP Family Medicine; Visit Provider Podiatrist Foot & Ankle Surgery
DX: S93.492D Sprain of other ligament of left ankle, subsequent encounter (principal); X58.XXXD Exposure to other specified factors, subsequent encounter; S82.62XD Displaced fracture of lateral malleolus of left fibula, subsequent encounter for closed fracture with routine healing; M65.862 Other synovitis and tenosynovitis, left lower leg
CPT/HCPCS: 73721

== ENCOUNTER → 2023-01-08 13:34 | Outpatient (BNVA) | payer MEDICARE, MEDICAID, SELFPAY ==
[2021-11-10 17:20] VITALS: BP 139/99; BMI 28.1
== END ==
PROVIDERS: PCP Family Medicine; Visit Provider Podiatrist Foot & Ankle Surgery
DX: M21.41 Flat foot [pes planus] (acquired), right foot (principal); M21.42 Flat foot [pes planus] (acquired), left foot; M76.822 Posterior tibial tendinitis, left leg; M25.572 Pain in left ankle and joints of left foot
CPT/HCPCS: 99213

== ENCOUNTER → 2023-01-30 12:41 | Outpatient (BNVA) | payer MEDICARE, MEDICAID, SELFPAY ==
[2021-11-10 17:20] VITALS: BP 139/99; BMI 28.1
== END ==
PROVIDERS: PCP Family Medicine; Visit Provider Family Medicine
DX: U07.1 COVID-19 (principal); J12.82 Pneumonia due to coronavirus disease 2019; M76.822 Posterior tibial tendinitis, left leg
CPT/HCPCS: 80053; 82607; 83880; 84443; 85025; 86140

== ENCOUNTER 2023-08-07 13:54 | Emergency (ER) | payer MEDICARE, MEDICAID, SELFPAY ==
[2021-11-10 17:20] VITALS: BP 139/99; BMI 28.1
[2023-08-07 14:13] VITALS: BP 130/84; PULSE 92; RESP 16; TEMP 36.5; O2SAT 95; BMI 33.4
--- NOTE | 2023-08-07 14:48 | XR_ITS ---
WS: [id number] Exam: XR chest 1V portable [id number] Date/Time of Exam: 08/07/2023 2:48 PM Reason For Exam: sob Comparison 02/09/2022. The lungs are fully expanded. No acute infiltrates. Chronic interstitial changes noted bilaterally. N ormal cardiomediastinal silhouette. Mild chronic elevation of the RIGHT diaphragm. Bony structures ar e intact. IMPRESSION: 1. No acute cardiopulmonary finding.
[2023-08-07 15:20] LABS: Basophils % 0.4 %; Eosinophils # 0.1 10^3/uL (0.0-0.8); Eosinophils % 1.8 %; Lymphocytes # 3.4 10^3/uL (0.8-4.8); Lymphocytes % 44.6 %; Mean Corpuscular HGB Conc 30.5 g/dL (30-55); Mean Corpuscular Hemoglobin 24.9 pg (27-33); Mean Corpuscular Volume 81.6 fl (85-98); Mean Platelet Volume 9.8 fL (7.4-10.4); Monocytes # 0.6 10^3/uL (0.2-0.9); Monocytes % 7.8 %; Neutrophils # 3.47 10^3/uL (1.8-7.7); Neutrophils % 44.9 %; Nucleated Red Blood Cells % 0 %; Platelet Count 272 10^3/cmm (157-399); Red Blood Count 4.78 10^6/uL (3.85-5.65); Red Cell Distribution Width 15.2 % (12.1-15.1); White Blood Count 7.72 10^3/uL (3.29-11.43)
[2023-08-07 15:32] LABS: Alanine Aminotransferase 25 U/L (0-33); Albumin Level 4.1 g/dL (3.5-5.2); Alkaline Phosphatase 163 U/L (35-105); Anion Gap 15.4 (5-19); Aspartate Amino Transferase 29 U/L (0-32); Blood Urea Nitrogen 7 mg/dL (6-20); Calcium 9.7 mg/dL (8.5-10.5); Carbon Dioxide 25 mmol/L (22-29); Chloride 102 mmol/L (98-107); Globulin 3.7 g/dL (1.3-4.6); Glomerular Filtration Rate 102.3 mL/min (90-130); Glucose 139 mg/dL (65-115); Osmolality Calculated 286 mOsm/kg (285-295); Potassium 4.4 mmol/L (3.5-5.1); Sodium 138 mmol/L (136-145); Total Bilirubin 0.2 mg/dL (0.15-1.2); Total Protein 7.8 g/dL (6.6-8.7)
--- NOTE | 2023-08-07 17:02 | W.ED.SOB ---
HPI - SOB/Dyspnea General: Chief Complaint: Shortness of Breath/Dyspnea Stated Complaint: sob, weakness Time Seen by Provider: 08/07/23 16:54 History of Present Illness: HPI Narrative: Patient presents to the ER with complaints of shortness of breath and generalized weakness and tired. Patient states he has been going on since June along with a nonproductive hacking cough. Patient states she has seen her PCP for this and he said she had lung damage secondary to her COVID she had prior to this. Patient states she he gave her an inhaler but it is not helping. Patient has had pleurisy and pneumonia in the past and said she feels similar. Review of Systems General: Reports: 10 or more systems reviewed and unremarkable except in HPI and below PFSH ED PFSH: Medical History Benign essential HTN Cataract COVID-19 Fungal pneumonia Generalized anxiety disorder Hx of chest pain Hx of shortness of breath Hypothyroidism Incontinence in female Major depressive disorder, recurrent severe without psychotic features Methadone dependence Microcytic anemia Neuropathy Other urethral stricture, female Post-traumatic stress disorder, chronic Post-traumatic stress disorder, unspecified Psychiatric care Respiratory failure Surgical History H/O gastric bypass H/O: hysterectomy History of amputation of great toe of both feet History of cholecystectomy History of esophagogastroduodenoscopy (EGD) History of reconstructive repair of rectocele History of total right hip replacement Hx of appendectomy Family History Father , AT AGE 62 Cancer PROSTATE CANCER Grandmother Stroke Denies family history of Anesthesia complication Bleeding disorder Social History Smoking and tobacco/nicotine status: never used tobacco/nicotine Second hand smoke exposure: No Alcohol intake: former Year of sobriety/quit date alcohol: 2020 Substance/Drug Use: never Adopted: Yes (Grandparents adopted her.) Caregiver/support person: No Lives independently: Yes Household members: none Housing: Apartment Marital status: / Marital status details: for 21 years Number of children: 2 Number of grandchildren: 4 Highest education level completed: Associate Degree: Occupational, Technical, Vocational Program 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 School service: No Current occupational status: disabled Current occupational exposures/hazards: No Pets and animals: Yes (2) Pets & animals: cat(s) Leisure activites: reading and other Leisure activities details: Watch TV Sexually active: No Do you think of yourself as: Straight/Heterosexual Current gender identity: Female Ekta/Mosque: Amish Special ekta needs: No Agree to transfusion: Yes Female Reproductive History: Para: 2 Spontaneous abortions: No Physical Exam Const: COMMON NORMALS: no acute distress, average body habitus, patient oriented x3, no limitations, healthy appearing, alert and well nourished HENMT: COMMON NORMALS: normocephalic, atraumatic, hearing grossly normal bilaterally, external ears normal, Normal external nose present, moist oral mucous membranes and oropharynx normal HEAD & SCALP: normocephalic and atraumatic NOSE: Normal external nose present EXTERNAL EAR: Yes external ears normal Neck/C-Spine: COMMON NORMALS: no JVD Chest: COMMONS NORMALS: normal inspection of the chest and normal palpation of entire chest wall Resp: COMMON NORMALS: normal respiratory effort, No retractions, No use of accessory muscles and clear to auscultation bilaterally AUSCULTATION: clear to auscultation bilaterally Cardio: COMMON NORMALS: no JVD, regular rate, regular rhythm, S1 normal heart sound present, S2 normal heart sound present, No gallops present (Cardio), No clicks present (Cardio), No murmurs present (Cardio) and No rub (Cardio) RATE: regular rate RHYTHM: regular rhythm HEART SOUNDS: S1 normal heart sound present and S2 normal heart sound present GI: COMMON NORMALS: Normal to inspection, nondistended, normoactive bowel sounds present, Soft to palpation, non-tender, No hepatosplenomegaly present and no masses PALPATION: Yes Soft to palpation and Yes No hepatosplenomegaly present Neuro: COMMON NORMALS: patient oriented x3 SENSORIUM/ORIENTATION: Yes alert Course Vital Signs: Vital signs: Vital Signs Temperature 97.7 F 08/07/23 14:13 Pulse Rate 92 08/07/23 14:13 Respiratory Rate 16 08/07/23 14:13 Blood Pressure 130/84 08/07/23 14:13 Pulse Oximetry 95 08/07/23 14:13 Oxygen Delivery Me thod Room Air 08/07/23 14:13 MDM - SOB/Dyspnea Medical Decision Making Patient has had this been going on for quite some time. Patient is seen her PCP for this. Lab work was obtained Included a CBC CMP and chest x-ray. All of which was benign. Patient also had a benign physical exam. Patient be given 10 mg Decadron IM and sent home on prednisone 40 mg daily for the next 5 days. Patient should follow-up with her PCP after this process. Differential Diagnosis Unlikely acute exacerbation of chronic obstructive airways disease, congestive heart failure, community acquired pneumonia, asthma with exacerbation or pulmonary embolism Medical Records I reviewed the patient's medical records. Lab Data I reviewed the patient's lab results. 08/07/23 15:06 08/07/23 15:06 Labs/Radiology: Laboratory Results WBC 7.72 10^3/uL (3.29-11.43) 08/07/23 15:06 RBC 4.78 10^6/uL (3.85-5.65) 08/07/23 15:06 Hgb 11.90 g/dL (11.27-16.99) 08/07/23 15:06 Hct 39.0 % (36-47) 08/07/23 15:06 MCV 81.6 fl (85-98) L 08/07/23 15:06 MCH 24.9 pg (27-33) L 08/07/23 15:06 MCHC 30.5 g/dL (30-55) 08/07/23 15:06 RDW 15.2 % (12.1-15.1) H 08/07/23 15:06 Plt Count 272 10^3/cmm (157-399) 08/07/23 15:06 MPV 9.8 fL (7.4-10.4) 08/07/23 15:06 Neut % (Auto) 44.9 % 08/07/23 15:06 Lymph % (Auto) 44.6 % 08/07/23 15:06 [place] % (Auto) 7.8 % 08/07/23 15:06 Eos % (Auto) 1.8 % 08/07/23 15:06 Baso % (Auto) 0.4 % 08/07/23 15:06 Neut # (Auto) 3.47 10^3/uL (1.8-7.7) 08/07/23 15:06 Lymph # (Auto) 3.4 10^3/uL (0.8-4.8) 08/07/23 15:06 [place] # (Auto) 0.6 10^3/uL (0.2-0.9) 08/07/23 15:06 Eos # (Auto) 0.1 10^3/uL (0.0-0.8) 08/07/23 15:06 Baso # (Auto) 0.0 10^3/uL (0.0-0.1) 08/07/23 15:06 Nucleated RBC % (auto) 0 % 08/07/23 15:06 Nucleated RBCs # 0.0 /100WBC 08/07/23 15:06 Sodium 138 mmol/L (136-145) 08/07/23 15:06 Potassium 4.4 mmol/L (3.5-5.1) 08/07/23 15:06 Chloride 102 mmol/L (98-107) 08/07/23 15:06 Carbon Dioxide 25 mmol/L (22-29) 08/07/23 15:06 Anion Gap 15.4 (5-19) 08/07/23 15:06 BUN 7 mg/dL (6-20) 08/07/23 15:06 Creatinine 0.6 mg/dL (0.5-0.9) 08/07/23 15:06 GFR Calculation 102.3 mL/min (90-130) 08/07/23 15:06 Glucose 139 mg/dL (65-115) H 08/07/23 15:06 Calculated Osmolality 286 mOsm/kg (285-295) 08/07/23 15:06 Calcium 9.7 mg/dL (8.5-10.5) 08/07/23 15:06 Total Bilirubin 0.2 mg/dL (0.15-1.2) 08/07/23 15:06 AST 29 U/L (0-32) 08/07/23 15:06 ALT 25 U/L (0-33) 08/07/23 15:06 Alkaline Phosphatase 163 U/L (35-105) H 08/07/23 15:06 Total Protein 7.8 g/dL (6.6-8.7) 08/07/23 15:06 Albumin 4.1 g/dL (3.5-5.2) 08/07/23 15:06 Globulin 3.7 g/dL (1.3-4.6) 08/07/23 15:06 All radiology interpretation(s) finalized by discharge Discharge Plan Discharge Patient Disposition: Home Clinical Impression: Cough Qualifiers: Cough type: chronic Qualified Code(s): R05.3 - Chronic cough Fatigue Qualifiers: Fatigue type: postviral fatigue syndrome Qualified Code(s): G93.31 - Postviral fatigue syndrome Condition: Stable Prescriptions: New prednisone 20 mg tablet 20 mg PO BID 5 Days Qty: 10 0RF No Action (DME) diabetic shoes with bilateral toe fillers See Rx Instructions .Route .MEDSUPPLY Qty: 1 0RF Rx Instructions: As directed (DME) walker Misc See Rx Instructions .Route Rx Instructions: As directed losartan 25 mg tablet 25 mg PO DAILY (DME) Supinator to the left See Rx Instructions .Route .MEDSUPPLY Qty: 1 0RF Rx Instructions: As directed albuterol sulfate [Ventolin HFA] 90 mcg/actuation HFA aerosol inhaler 2 puff inhalation Q6H PRN (Reason: shortness of breath or wheezing) Qty: 8.5 11RF amitriptyline 100 mg tablet 200 mg PO BEDTIME Qty: 60 2RF duloxetine 60 mg capsule,delayed release(DR/EC) 120 mg PO DAILY Qty: 60 2RF prazosin 5 mg capsule 5 mg PO .HS Qty: 30 2RF potassium chloride 10 mEq capsule, extended release 10 meq PO BID Qty: 60 11RF levothyroxine 75 mcg tablet See Rx Instructions .ROUTE .COMPLEX Qty: 30 11RF Dose Instruction: Take 1 tablet by mouth once daily Rx Instructions: Take 1 tablet by mouth once daily glimepiride 2 mg tablet 2 mg PO BID Qty: 60 11RF (DME) Custom Molded Orthotics See Rx Instructions .Route .MEDSUPPLY Qty: 1 0RF Rx Instructions: As directed by [facility] [place] oxybutynin chloride 5 mg tablet See Rx Instructions .ROUTE .COMPLEX Qty: 60 11RF Dose Instruction: Take 1 tablet by mouth twice daily Rx Instructions: Take 1 tablet by mouth twice daily gabapentin 600 mg tablet See Rx Instructions .ROUTE .COMPLEX Qty: 180 3RF Dose Instruction: TAKE 2 TABLETS BY MOUTH THREE TIMES DAILY Rx Instructions: TAKE 2 TABLETS BY MOUTH THREE TIMES DAILY Narcan 4 mg/actuation spray,non-aerosol 4 mg intranasal Q2M PRN (Reason: opioid overdose) Qty: 2 0RF Rx Instructions: spray 1 dose into ONE nostril; alternate nostrils w each dose until help arrives Discharge Orders: Discharge ED (Routine); Ordered 08/07/23 Ordered By: Douglas Mitchell Referrals: Yaya Myles MD [Primary Care Provider] - 1 week Patient Instructions: Chronic Cough (ED), Weakness (ED), Fatigue (ED) Activity Restrictions/Additional Instructions: Your work-up in the ER did not show any acute causes of your symptoms. Please take the prednisone as directed as this may help with any inflammation in your lungs causing your symptoms. Please follow-up with your family practice physician within the next 7 days as he may benefit from further evaluation and testing. Coding Level of Care Code ED Retail Account Representative for Barbra Keith
[2023-08-07] MEDS: dexamethasone 10 mg/mL INJ IM (17:21)
[2023-08-07 17:24] VITALS: BP 136/80; PULSE 77; O2SAT 95
--- NOTE | 2023-08-07 17:24 | PC.NURSE ---
ASSUMED CARE AT 1720
[2023-08-07 18:02] VITALS: BP 137/92; PULSE 77; O2SAT 95
== END 2023-08-07 18:04 | disposition home or self-care (01) ==
PROVIDERS: Physician Assistant; Emergency Provider Emergency Medicine; PCP Family Medicine
DX: R05.3 Chronic cough (principal); G93.31 Postviral fatigue syndrome; Z79.84 Long term (current) use of oral hypoglycemic drugs; I10 Essential (primary) hypertension
CPT/HCPCS: 36415; 71045; 80053; 85025; 96372; 99284; J1100

== ENCOUNTER 2023-09-17 00:01 | Emergency (ER) | payer MEDICARE, MEDICAID, SELFPAY ==
[2021-11-10 17:20] VITALS: BP 139/99; BMI 28.1
[2023-09-17 00:09] VITALS: BP 157/114; PULSE 99; RESP 20; TEMP 37.1; O2SAT 94
--- NOTE | 2023-09-17 00:10 | ED_ITS ---
Documented by User: LUBNA Dueñas 09/17/23 00:55 HPI - Fall General: Chief Complaint: Fall Stated Complaint: Fell, both, mainly right side left knee Time Seen by Provider: 09/17/23 00:08 History of Present Illness: 57-year-old female comes in today for in jury secondary to a fall. Patient fell about 3 hours prior to arrival. Patient was transferring and slipped and fell. Patient noticed swelling and tenderness to the right ankle. Also noted some discomfort to the medial knee on the left side. And some right hip pelvic pain. Patient does have a history of full replacement to the right hip. 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 Review of Systems General: Reports: 10 or more systems reviewed and unremarkable except in HPI and below Musc: Reports: extremity pain and extremity swelling PFSH ED PFSH: Medical History Post-traumatic stress disorder, unspecified Psychiatric care Fungal pneumonia Microcytic anemia Methadone dependence Respiratory failure COVID-19 Benign essential HTN Other urethral stricture, female Neuropathy Cataract Hypothyroidism Incontinence in female Hx of chest pain Hx of shortness of breath Generalized anxiety disorder Major depressive disorder, recurrent severe without psychotic features Post-traumatic stress disorder, chronic Surgical History H/O: hysterectomy H/O gastric bypass Hx of appendectomy History of cholecystectomy History of amputation of great toe of both feet History of reconstructive repair of rectocele History of total right hip replacement History of esophagogastroduodenoscopy (EGD) Family History Father , AT AGE 62 Cancer PROSTATE CANCER Grandmother Stroke Denies family history of Anesthesia complication Bleeding disorder Social History Smoking and tobacco/nicotine status: never used tobacco/nicotine Second hand smoke exposure: No Alcohol intake: former Year of sobriety/quit date alcohol: 2020 Substance/Drug Use: never Adopted: Yes (Grandparents adopted her.) Caregiver/support person: No Lives independently: Yes Household members: none Housing: Apartment Marital status: / Marital status details: for 21 years Number of children: 2 Number of grandchildren: 4 Highest education level completed: Associate Degree: Occupational, Technical, Vocational Program 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 School service: No Current occupational status: disabled Current occupational exposures/hazards: No Pets and animals: Yes (2) Pets & animals: cat(s) Leisure activites: reading and other Leisure activities details: Watch TV Sexually active: No Do you think of yourself as: Straight/Heterosexual Current gender identity: Female Ekta/Latter-Day: Restoration Special ekta needs: No Agree to transfusion: Yes Female Reproductive History: Para: 2 Spontaneous abortions: No Physical Exam Const: COMMON NORMALS: alert HENMT: COMMON NORMALS: normocephalic HEAD & SCALP: normocephalic Neck/C-Spine: COMMON NORMALS: full ROM Resp: COMMON NORMALS: normal respiratory effort Cardio: COMMON NORMALS: regular rate RATE: regular rate Back/Pelvis: COMMON NORMALS: thoracic and lumbar spine normal to inspection Extremity: RIGHT LOWER EXTREMITY: Yes hip joint Right hip: Yes palpation (Lateral tenderness) and Yes ROM, Yes foot & digits (Bruising and bilateral swelling) Right ankle: Yes inspection, Yes palpation, Yes ROM and Yes neurovascular exam and Yes foot & digits (Toe amputation bilaterally) LEFT LOWER EXTREMITY: Yes knee joint (Medial joint line tenderness) and Yes foot & digits (Digit amputation) Neuro: SENSORIUM/ORIENTATION: Yes alert Skin: NARRATIVE SKIN EXAM: Healing wound to the sole of the right foot no redness. Course Vital Signs: Vital signs: Vital Signs Temperature 98.8 F 09/17/23 00:09 Pulse Rate 87 09/17/23 01:51 Respiratory Rate 18 09/17/23 01:51 Blood Pressure 140/88 09/17/23 01:51 Pulse Oximetry 95 09/17/23 01:51 MDM - Fall Medical Decision Making Patient comes in for evaluation of fall injury. Patient reports swelling and bruising to the right ankle. No obvious dislocation deformity is noted to the ankle. Patient also has some left joint line medial tenderness. And some right hip tenderness. Patient was able to transfer with minimal assist to the bed. Patient does have some bilateral partial foot amputation with digit loss to both feet due to diabetic neuropathy. Differential diagnosis includes but not limited to fracture, sprain, contusion, dislocation. X-ray of the ankle and foot on the right noted a calcaneal fracture of the posterior body. X-ray of the left knee noted tibial spine probable tibial plateau fracture. Pelvis was unremarkable. Reviewed exam with patient with recommendations for treatment and follow-up. Discussed patient with Dr. Arthur who agreed to plan. Lab Data Radiology Impressions Ankle X-Ray 09/17/23 00:11 IMPRESSION: Acute transverse distracted fracture of the right os calcis. Knee X-Ray 09/17/23 00:11 IMPRESSION: There are no acute osseous findings. Pelvis X-Ray 09/17/23 00:11 IMPRESSION: There are no acute osseous findings. Foot X-Ray 09/17/23 00:42 IMPRESSION: Acute transverse fracture the right os calcis with approximate 5 mm fracture gap present. XR interpretation done by ED provider, pending radiology final review Discharge Plan Discharge Patient Disposition: Home Clinical Impression: Fall from slip, trip, or stumble Qualifiers: Encounter type: initial encounter Qualified Code(s): W01.0XXA - Fall on same level from slipping, tripping and stumbling without subsequent striking against object, initial encounter Calcaneus fracture, right Qualifiers: Encounter type: initial encounter Calcaneus location: unspecified portion of calcaneus Fracture type: closed Fracture alignment: displaced Qualified Code(s): S92.001A - Unspecified fracture of right calcaneus, initial encounter for closed fracture Closed fracture of tibial plateau Qualifiers: Encounter type: initial encounter Laterality: left Qualified Code(s): S82.142A - Displaced bicondylar fracture of left tibia, initial encounter for closed fracture Condition: Stable Prescriptions: New hydrocodone-acetaminophen 5-325 mg tablet 1 tab PO Q6H PRN (Reason: pain) Qty: 10 0RF No Action (DME) diabetic shoes with bilateral toe fillers See Rx Instructions .Route .MEDSUPPLY Qty: 1 0RF Rx Instructions: As directed (DME) walker Misc See Rx Instructions .Route Rx Instructions: As directed losartan 25 mg tablet 25 mg PO DAILY (DME) Supinator to the left See Rx Instructions .Route .MEDSUPPLY Qty: 1 0RF Rx Instructions: As directed albuterol sulfate [Ventolin HFA] 90 mcg/actuation HFA aerosol inhaler 2 puff inhalation Q6H PRN (Reason: shortness of breath or wheezing) Qty: 8.5 11RF amitriptyline 100 mg tablet 200 mg PO BEDTIME Qty: 60 2RF duloxetine 60 mg capsule,delayed release(DR/EC) 120 mg PO DAILY Qty: 60 2RF prazosin 5 mg capsule 5 mg PO .HS Qty: 30 2RF clonazepam [Klonopin] 0.5 mg tablet 0.5 mg PO BID Qty: 60 1RF potassium chloride 10 mEq capsule, extended release 10 meq PO BID Qty: 60 11RF (DME) Custom Molded Orthotics See Rx Instructions .Route .MEDSUPPLY Qty: 1 0RF Rx Instructions: As directed by [employer] oxybutynin chloride 5 mg tablet See Rx Instructions .ROUTE .COMPLEX Qty: 60 11RF Dose Instruction: Take 1 tablet by mouth twice daily Rx Instructions: Take 1 tablet by mouth twice daily gabapentin 600 mg tablet See Rx Instructions .ROUTE .COMPLEX Qty: 180 3RF Dose Instruction: TAKE 2 TABLETS BY MOUTH THREE TIMES DAILY Rx Instructions: TAKE 2 TABLETS BY MOUTH THREE TIMES DAILY levothyroxine 75 mcg tablet See Rx Instructions .ROUTE .COMPLEX Qty: 30 11RF Dose Instruction: Take 1 tablet by mouth once daily Rx Instructions: Take 1 tablet by mouth once daily Narcan 4 mg/actuation spray,non-aerosol 4 mg intranasal Q2M PRN (Reason: opioid overdose) Qty: 2 0RF Rx Instructions: spray 1 dose into ONE nostril; alternate nostrils w each dose until help arrives Discharge Orders: Discharge ED (Routine); Ordered 09/17/23 Ordered By: Jalen Billings Referrals: Yaya Myles MD [Primary Care Provider] - Discharge Diet: Usual diet Patient Instructions: Calcaneal Fracture (ED), Knee Immobilizer (ED) Activity Restrictions/Additional Instructions: Keep splint clean and dry. Wear knee immobilizer for protection of the fracture in the knee. You can bear weight lightly to the left knee for transfer. Use [id number]-awpriod medication to help control pain. Use ice and heat for further pain relief. Use hydrocodone for severe pain. Follow-up with orthopedist for further care. Case management will contact you with the follow-up appointment. Coding Level of Care Code ED Medical Clerical Assistant for Chg Fwd Documented by User: Tobi Arthur DO 09/17/23 02:54 HPI - Fall General: Chief Complaint: Fall Stated Complaint: Fell, both, mainly right side left knee Time Seen by Provider: 09/17/23 00:08 PFSH ED PFSH: Medical History Post-traumatic stress disorder, unspecified Psychiatric care Fungal pneumonia Microcytic anemia Methadone dependence Respiratory failure COVID-19 Benign essential HTN Other urethral stricture, female Neuropathy Cataract Hypothyroidism Incontinence in female Hx of chest pain Hx of shortness of breath Generalized anxiety disorder Major depressive disorder, recurrent severe without psychotic features Post-traumatic stress disorder, chronic Surgical History H/O: hysterectomy H/O gastric bypass Hx of appendectomy History of cholecystectomy History of amputation of great toe of both feet History of reconstructive repair of rectocele History of total right hip replacement History of esophagogastroduodenoscopy (EGD) Family History Father , AT AGE 62 Cancer PROSTATE CANCER Grandmother Stroke Denies family history of Anesthesia complication Bleeding disorder Social History Smoking and tobacco/nicotine status: never used tobacco/nicotine Second hand smoke exposure: No Alcohol intake: former Year of sobriety/quit date alcohol: 2020 Substance/Drug Use: never Adopted: Yes (Grandparents adopted her.) Caregiver/support person: No Lives independently: Yes Household members: none Housing: Apartment Marital status: / Marital status details: for 21 years Number of children: 2 Number of grandchildren: 4 Highest education level completed: Associate Degree: Occupational, Technical, Vocational Program 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 School service: No Current occupational status: disabled Current occupational exposures/hazards: No Pets and animals: Yes (2) Pets & animals: cat(s) Leisure activites: reading and other Leisure activities details: Watch TV Sexually active: No Do you think of yourself as: Straight/Heterosexual Current gender identity: Female Ekta/Latter-Day: Restoration Special ekta needs: No Agree to transfusion: Yes Course Vital Signs: Vital signs: Vital Signs Temperature 98.8 F 09/17/23 00:09 Pulse Rate 87 09/17/23 01:51 Respiratory Rate 18 09/17/23 01:51 Blood Pressure 140/88 09/17/23 01:51 Pulse Oximetry 95 09/17/23 01:51 MDM - Fall Medical Decision Making Patient comes in for evaluation of fall injury. Patient reports swelling and bruising to the right ankle. No obvious dislocation deformity is noted to the ankle. Patient also has some left joint line medial tenderness. And some right hip tenderness. Patient was able to transfer with minimal assist to the bed. Patient does have some bilateral partial foot amputation with digit loss to both feet due to diabetic neuropathy. Differential diagnosis includes but not limited to fracture, sprain, contusion, dislocation. X-ray of the ankle and foot on the right noted a calcaneal fracture of the posterior body. X-ray of the left knee noted tibial spine probable tibial plateau fracture. Pelvis was unremarkable. Reviewed exam with patient with recommendations for treatment and follow-up. Discussed patient with Dr. Arthur who agreed to plan. This patient was originally seen by LUBNA Allen.? I agree with his history, evaluation, and treatment. Lab Data Radiology Impressions Ankle X-Ray 09/17/23 00:11 IMPRESSION: Acute transverse distracted fracture of the right os calcis. Knee X-Ray 09/17/23 00:11 IMPRESSION: There are no acute osseous findings. Pelvis X-Ray 09/17/23 00:11 IMPRESSION: There are no acute osseous findings. Foot X-Ray 09/17/23 00:42 IMPRESSION: Acute transverse fracture the right os calcis with approximate 5 mm fracture gap present. Discharge Plan Discharge Patient Disposition: Home Clinical Impression: Fall from slip, trip, or stumble Qualifiers: Encounter type: initial encounter Qualified Code(s): W01.0XXA - Fall on same level from slipping, tripping and stumbling without subsequent striking against object, initial encounter Calcaneus fracture, right Qualifiers: Encounter type: initial encounter Calcaneus location: unspecified portion of calcaneus Fracture type: closed Fracture alignment: displaced Qualified Code(s): S92.001A - Unspecified fracture of right calcaneus, initial encounter for closed fracture Closed fracture of tibial plateau Qualifiers: Encounter type: initial encounter Laterality: left Qualified Code(s): S82.142A - Displaced bicondylar fracture of left tibia, initial encounter for closed fracture Condition: Stable Prescriptions: New hydrocodone-acetaminophen 5-325 mg tablet 1 tab PO Q6H PRN (Reason: pain) Qty: 10 0RF No Action (DME) diabetic shoes with bilateral toe fillers See Rx Instructions .Route .MEDSUPPLY Qty: 1 0RF Rx Instructions: As directed (DME) walker Misc See Rx Instructions .Route Rx Instructions: As directed losartan 25 mg tablet 25 mg PO DAILY (DME) Supinator to the left See Rx Instructions .Route .MEDSUPPLY Qty: 1 0RF Rx Instructions: As directed albuterol sulfate [Ventolin HFA] 90 mcg/actuation HFA aerosol inhaler 2 puff inhalation Q6H PRN (Reason: shortness of breath or wheezing) Qty: 8.5 11RF amitriptyline 100 mg tablet 200 mg PO BEDTIME Qty: 60 2RF duloxetine 60 mg capsule,delayed release(DR/EC) 120 mg PO DAILY Qty: 60 2RF prazosin 5 mg capsule 5 mg PO .HS Qty: 30 2RF clonazepam [Klonopin] 0.5 mg tablet 0.5 mg PO BID Qty: 60 1RF potassium chloride 10 mEq capsule, extended release 10 meq PO BID Qty: 60 11RF (DME) Custom Molded Orthotics See Rx Instructions .Route .MEDSUPPLY Qty: 1 0RF Rx Instructions: As directed by [employer] oxybutynin chloride 5 mg tablet See Rx Instructions .ROUTE .COMPLEX Qty: 60 11RF Dose Instruction: Take 1 tablet by mouth twice daily Rx Instructions: Take 1 tablet by mouth twice daily gabapentin 600 mg tablet See Rx Instructions .ROUTE .COMPLEX Qty: 180 3RF Dose Instruction: TAKE 2 TABLETS BY MOUTH THREE TIMES DAILY Rx Instructions: TAKE 2 TABLETS BY MOUTH THREE TIMES DAILY levothyroxine 75 mcg tablet See Rx Instructions .ROUTE .COMPLEX Qty: 30 11RF Dose Instruction: Take 1 tablet by mouth once daily Rx Instructions: Take 1 tablet by mouth once daily Narcan 4 mg/actuation spray,non-aerosol 4 mg intranasal Q2M PRN (Reason: opioid overdose) Qty: 2 0RF Rx Instructions: spray 1 dose into ONE nostril; alternate nostrils w each dose until help arrives Discharge Orders: Discharge ED (Routine); Ordered 09/17/23 Ordered By: Jalen Billings Referrals: Yaya Myles MD [Primary Care Provider] - Discharge Diet: Usual diet Patient Instructions: Calcaneal Fracture (ED), Knee Immobilizer (ED) Activity Restrictions/Additional Instructions: Keep splint clean and dry. Wear knee immobilizer for protection of the fracture in the knee. You can bear weight lightly to the left knee for transfer. Use [id number] medication to help control pain. Use ice and heat for further pain relief. Use hydrocodone for severe pain. Follow-up with orthopedist for further care. Case management will contact you with the follow-up appointment. Coding Level of Care Code ED Medical Clerical Assistant for Barbra Keith
--- NOTE | 2023-09-17 00:11 | XRR_ITS ---
PROCEDURE INFORMATION: Exam: XR Pelvis Exam date and time: 09/17/2023 12:26 AM Age: 57 years old Clinical indication: Injury or trauma; Blunt trauma (contusions or hematomas); Right; Prior surgery; Surgery date: 6+ months; Surgery type: Sander. Hysterectomy. Patient HX: Fall at home. C/O RT hip, left knee, and RT ankle pain. TECHNIQUE: Imaging protocol: Radiologic exam of the pelvis. Views: 1 or 2 view. COMPARISON: CT abdomen pelvis w con* [id number] 11/18/2020 12:57 PM FINDINGS: Bones/joints: Status post bipolar right hip replacement. Soft tissues: Unremarkable. XR/XR pelvis 1-2V* [id number] IMPRESSION: There are no acute osseous findings.
--- NOTE | 2023-09-17 00:11 | XRR_ITS ---
PROCEDURE INFORMATION: Exam: XR Right Ankle Exam date and time: 09/17/2023 12:26 AM Age: 57 years old Clinical indication: Injury or trauma; Blunt trauma; Right; Patient HX: Fall at home. C/O RT hip, left knee, and RT ankle pain. TECHNIQUE: Imaging protocol: Radiologic exam of the right ankle. Views: 3 or more views. COMPARISON: No relevant prior studies available. FINDINGS: Bones/joints: There is an acute transverse fracture the right os calcis there is an approximate 6.5 mm distraction of the superior fragment. Soft tissues: There is soft tissue swelling overlying the medial and lateral malleoli of the right ankle. XR/XR ankle RT min 3V* [id number] IMPRESSION: Acute transverse distracted fracture of the right os calcis.
--- NOTE | 2023-09-17 00:11 | XRR_ITS ---
PROCEDURE INFORMATION: Exam: XR Left Knee Exam date and time: 09/17/2023 12:26 AM Age: 57 years old Clinical indication: Injury or trauma; Blunt trauma; Patient HX: Fall at home. C/O RT hip, left knee, and RT ankle pain. TECHNIQUE: Imaging protocol: Radiologic exam of the left knee. Views: 3 views. COMPARISON: No relevant prior studies available. FINDINGS: Bones/joints: There is a severe loss of joint space seen in the medial and lateral compartments of the left knee compatible with osteoarthritic changes. Soft tissues: Normal. XR/XR knee LT 3V* [id number] IMPRESSION: There are no acute osseous findings.
[2023-09-17] MEDS: HYDROcodone-acetaminophen 5-325 mg Tablet 1 TAB PO (00:32)
--- NOTE | 2023-09-17 00:42 | XRR_ITS ---
PROCEDURE INFORMATION: Exam: XR Right Foot Exam date and time: 09/17/2023 12:47 AM Age: 57 years old Clinical indication: Injury or trauma; Fall; Blunt trauma; Foot; Right; Prior surgery; Surgery date: 6+ months; Surgery type: Digit amputation x5; Patient HX: Patient fell at home. C/O RT ankle pain. Calcaneal fracture noticed on ankle xray. TECHNIQUE: Imaging protocol: Radiologic exam of the right foot. Views: 3 or more views. COMPARISON: CR (LOW EXM, ) 09/17/2023 12:26 AM FINDINGS: Bones/joints: Status post amputation the digits of the right foot. There is diffuse demineralization. There is a transverse fracture of the superior aspect of the right os calcis with approximate 5.3 mm fracture gap. Soft tissues: Normal. XR/XR foot RT min 3V* [id number] IMPRESSION: Acute transverse fracture the right os calcis with approximate 5 mm fracture gap present.
[2023-09-17 01:51] VITALS: BP 140/88; PULSE 87; RESP 18; O2SAT 95
--- NOTE | 2023-09-17 11:10 | DCPLANNER ---
Referral was sent to ortho clinic on 09/17/23 at [facility]. Clinic to contact patient.
== END 2023-09-17 01:53 | disposition home or self-care (01) ==
PROVIDERS: Emergency Provider Nurse Practitioner Family; PCP Family Medicine
DX: S92.001A Unspecified fracture of right calcaneus, initial encounter for closed fracture (principal); S82.142A Displaced bicondylar fracture of left tibia, initial encounter for closed fracture; I10 Essential (primary) hypertension; W01.0XXA Fall on same level from slipping, tripping and stumbling without subsequent striking against object, initial encounter
CPT/HCPCS: 29515; 29530; 72170; 73562; 73610; 73630; 99284

== ENCOUNTER → 2023-09-20 15:15 | Outpatient (BNVA) | payer MEDICARE, MEDICAID, SELFPAY ==
[2021-11-10 17:20] VITALS: BP 139/99; BMI 28.1
== END ==
PROVIDERS: PCP Family Medicine; Visit Provider Podiatrist Foot & Ankle Surgery
DX: S92.001A Unspecified fracture of right calcaneus, initial encounter for closed fracture (principal); X58.XXXA Exposure to other specified factors, initial encounter
CPT/HCPCS: 29405; 73650; 99214

== ENCOUNTER 2023-09-26 07:33 | Day surgery (SDC) | payer MEDICARE, MEDICAID, SELFPAY ==
[2021-11-10 17:20] VITALS: BP 139/99; BMI 28.1
[2023-09-26] VITALS (10 sets, daily range): BP systolic 99–133; BP diastolic 53–85; PULSE 76–86; RESP 16–18; TEMP 36.1–36.6; O2SAT 91–99
--- NOTE | 2023-09-26 | XR_ITS ---
WS: [id number] C-ARM RADIOGRAPHS RIGHT CALCANEUS; 2 IMAGES HISTORY: [facility] COMPARISON: 09/20/2023 Screw fixation of a calcaneal fracture. There are 2 screws are properly positioned. IMPRESSION: Intraoperative imaging during calcaneal fracture fixation.
[2023-09-26] MEDS: sodium chloride 0.9% 1,000 ML 30 ML IV (08:15)
[2023-09-26] MEDS: acetaminophen 1,000 MG/100 ML PIGGYBACK 400 MG IV (08:16)
[2023-09-26] MEDS: vancomycin 1,000 MG in sodium chloride 0.9% 250 ML 250 MG IV (08:16)
[2023-09-26] MEDS: gabapentin 300 mg Capsule PO (08:16)
[2023-09-26] MEDS: scopolamine 1.5 Patch 1 PATCH TRANSDERMA (08:43)
[2023-09-26] MEDS: HYDROmorphone 1 mg/mL INJ 1 mL 0.5 MG IVP (09:09)
--- NOTE | 2023-09-26 09:39 | P.HPUD_ITS ---
Surgery/Procedure H&P Update DATE OF PROCEDURE: September 26, 2023 DATE H&P PERFORMED: 09/20/23 H&P UPDATE INFORMATION: I have reviewed H&P completed within last 30 days, I have examined patient prior to procedure, Changes to prior documentation as noted here and H&P is in [facility] [place] EMR on date indicated CHANGES TO PREVIOUS DOCUMENTATION: Fiberglass cast applied to right lower extremity at previous office visit rubbed a superficial ulceration to the dorsal lateral aspect of the right foot. Posterior heel surgical site soft tissues have normalized for surgery PREOP DIAGNOSIS: Calcaneal fracture, right PLANNED PROCEDURE: Operation Date: 09/26/23 09:35 Proposed Procedures p Partial calcaneal excision vs. ORIF right calcaneus [id number], [id number],S92.001A(Right) - Emiliano Gonzales DPM
--- NOTE | 2023-09-26 09:58 | ANES.PREANE2 ---
Pre-Anesthetic Assessment Height/Weight: Height 1.73 m Weight 99.79 kg Temp Pulse Resp BP Pulse Ox O2 Del Method 97.8 F 84 18 133/85 94 Room Air 09/26/23 07:51 09/26/23 07:51 09/26/23 09:09 09/26/23 07:51 09/26/23 07:51 09/26/23 08:09 Preop Diagnosis: Calcaneal fracture, right Operation Date: 09/26/23 09:35 Proposed Procedures p Partial calcaneal excision vs. ORIF right calcaneus 70470, 28058,S92.001A(Right) - Emiliano Gonzales DPM Familial anesthetic complications: none Was Beta Nicola taken within 24 hours: N/A Was Clonidine taken within 24 hours: N/A Last intake: Intake Last Liquid Date 09/25/23 Last Liquid Time 23:00 Last Solid Date 09/25/23 Last Solid Time 23:00 Social No alcohol and No tobacco Exam alert, oriented x 3, clear to auscultation bilaterally and regular rate & rhythm Airway Submandibular: within normal limits Cervical ROM: within normal limits Mallampati: Class II Dentition: false Pulmonary Asthma Metabolic Morbid Obesity and Thyroid Disease Neuropsych Anxiety, Depression and Neuropathy Anesthetic Plan ASA status: 3 Anesthesia: General and Regional (specify below) (right pop blk) Medications/Allergies Home Medications Medication Instructions Recorded Confirmed Last Taken Type diabetic shoes with bilateral toe #1 ea 12/09/21 09/20/23 Unknown Rx fillers walker 03/01/22 09/20/23 Unknown History losartan 25 mg tablet 25 mg PO DAILY 07/13/22 09/26/23 09/25/23 History potassium chloride 10 mEq 10 meq PO BID #60 caps 07/13/22 09/26/23 09/25/23 Rx capsule,extended release Supinator to the left #1 ea 11/08/22 09/20/23 Unknown Rx albuterol sulfate 90 mcg/actuation 2 puff inhalation Q6H PRN 01/30/23 09/26/23 09/25/23 Rx aerosol inhaler (Ventolin HFA) shortness of breath or wheezing #8.5 grams Custom Molded Orthotics #1 ea 03/07/23 09/20/23 Unknown Rx amitriptyline 100 mg tablet 200 mg (2 x 100 mg) PO BEDTIME #60 07/26/23 09/26/23 09/25/23 Rx tabs duloxetine 60 mg capsule,delayed 120 mg (2 x 60 mg) PO DAILY #60 07/26/23 09/26/23 09/25/23 Rx release caps prazosin 5 mg capsule 5 mg PO .HS #30 caps 07/26/23 09/26/23 09/25/23 Rx clonazepam 0.5 mg tablet (Klonopin) 0.5 mg PO BID #60 tabs 08/31/23 09/26/23 09/25/23 Rx gabapentin 600 mg tablet See Rx Instructions .Route 09/04/23 09/26/23 09/25/23 Rx .COMPLEX #180 tabs levothyroxine 75 mcg tablet 75 mcg PO DAILY 09/25/23 09/26/23 09/25/23 History oxybutynin chloride 5 mg tablet 15 mg PO BID 09/25/23 09/26/23 09/25/23 History hydrocodone 10 mg-acetaminophen 1 tab PO Q6H PRN pain #24 tabs 09/26/23 Unknown Rx 325 mg tablet Allergies Allergy/AdvReac Type Severity Reaction Status Date / Time amoxicillin Allergy Intermediate rash Verified 09/26/23 08:05 egg Allergy Intermediate Vomiting Verified 09/26/23 08:05 morphine Allergy Intermediate rash Verified 09/26/23 08:05 Penicillins Allergy Intermediate ALGY-Rash Verified 09/26/23 08:05 promethazine Allergy Intermediate rash Verified 09/26/23 08:05 cetirizine [From Zyrtec] AdvReac Intermediate feels bad Verified 09/26/23 08:05 on it nalbuphine [From Nubain] AdvReac Intermediate ADR-Agitate Verified 09/26/23 08:05 d simvastatin [From Zocor] AdvReac Intermediate cramps Verified 09/26/23 08:05 Current Medications Generic Name Dose Route Start Last Admin Trade Name Freq PRN Reason Stop Dose Admin Sodium Chloride 1,000 mls @ 30 mls/hr 09/26/23 08:00 09/26/23 08:15 Sodium Chloride 0.9% IV 09/27/23 07:59 30 mls/hr .Q24H BIA Administration PFSH Anesthesia Medical History Post-traumatic stress disorder, unspecified Psychiatric care Fungal pneumonia Microcytic anemia Methadone dependence Respiratory failure COVID-19 Benign essential HTN Other urethral stricture, female Neuropathy Cataract Hypothyroidism Incontinence in female Hx of chest pain Hx of shortness of breath Generalized anxiety disorder Major depressive disorder, recurrent severe without psychotic features Post-traumatic stress disorder, chronic Surgical History H/O: hysterectomy H/O gastric bypass Hx of appendectomy History of cholecystectomy History of amputation of great toe of both feet History of reconstructive repair of rectocele History of total right hip replacement History of esophagogastroduodenoscopy (EGD) Family History Father , AT AGE 62 Cancer PROSTATE CANCER Grandmother Stroke Denies family history of Anesthesia complication Bleeding disorder Social History Smoking and tobacco/nicotine status: never used tobacco/nicotine Second hand smoke exposure: No Alcohol intake: former Year of sobriety/quit date alcohol: 2020 Substance/Drug Use: never Adopted: Yes (Grandparents adopted her.) Caregiver/support person: No Lives independently: Yes Household members: none Housing: Apartment Marital status: / Marital status details: for 21 years Number of children: 2 Number of grandchildren: 4 Highest education level completed: Associate Degree: Occupational, Technical, Vocational Program 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 School service: No Current occupational status: disabled Current occupational exposures/hazards: No Pets and animals: Yes (2) Pets & animals: cat(s) Leisure activites: reading and other Leisure activities details: Watch TV Sexually active: No Do you think of yourself as: Straight/Heterosexual Current gender identity: Female Ekta/Christian: Christianity Special ekta needs: No Agree to transfusion: Yes Female Reproductive History Para: 2 Spontaneous abortions: No Data Anesthesia Cardiac Studies: Echocardiogram 05/15/21 Sestamibi Stress Test (Cardiology) 07/15/20
--- NOTE | 2023-09-26 10:58 | ANES.PROC ---
Anesthesia Procedures Procedure/Date: 09/26/23 Nerve Block ^: Nerve Block 1: Main Anesthesia: general anesthesia Time Out Performed: Yes Consent: requested by attending/covering physician, from patient, risks and benefits reviewed and patient agrees to proceed Nerve block location: popliteal (right) Anesthesia monitors applied: pulse oximetry, EKG, BP cuff and oxygen Nerve block position: other (prone) Anesthetic Used: ropivicaine 0.5% Amount of anesthesia used (mL): 30 Ultrasound used to: recognize landmarks Nerve Stimulator Used?: No Interscalene/Femoral BLK: 4 stimuplex 21 g needle used for position and inplane approach Injection: neg aspiration of heme Patient Tolerated Procedure: well Complications: none
--- NOTE | 2023-09-26 12:00 | P.BOP_ITS ---
Date of procedure: 09/26/2023 Surgeon name: Dr. Emiliano Gonzales D.P.M. [employer] Area Supervisor(s) name(s): Tere Procedure(s) performed: Open reduction internal fixation right calcaneal fracture Description of findings: Tongue type calcaneal fracture Estimated blood loss: 5 cc Tourniquet time: 66 minutes Specimen(s) removed: None Post-operative diagnosis: Right foot calcaneal fracture
--- NOTE | 2023-09-26 12:01 | PM.OP ---
Operative Report Date of procedure: September 26, 2023 Pre-op diagnosis: Right foot calcaneal fracture Post-op diagnosis: Same Post-op findings: Calcaneal fracture right foot, tongue type Procedure done: Open reduction internal fixation right calcaneus CPT 76389 Implants: 4.0 x 50 mm headless compression screw, 4.0 x 55 mm headed short threaded screw all from [employer]. Sonic anchor x 2 from [employer] Pathology: None Surgeon: Emiliano Gonzales DPM Motorcycle Delivery Driver: Reymundo Carranza Estimated blood loss: 5 cc 66 minutes Complications: None Findings: See above Procedure: Patient is a 57-year-old female that has a history of right calcaneal tongue type fracture. The extent of the injury necessitates open reduction internal fixation. A lengthy discussion regarding the procedure, including risks and complications has been had with the patient and is noted in the recent clinic note. Written and verbal consent have been obtained. All patient questions have been answered to the patient?s satisfaction. No written or verbal guarantees have been given or implied. The patient has been NPO since midnight. The history has been reviewed and the history and physical is current. The signed consent was confirmed and placed in the patient chart. Patient imaging has been reviewed and is consistent with the diagnosis. Under mild sedation, the patient was brought into the operating room and placed on the table in the prone position. IV antibiotics were given by the anesthesia team as preoperative surgical prophylaxis. General sedation was then performed by the anesthesiateam. A popliteal block was performed by the anesthesia department. A pneumatic tourniquet was then placed about the right thigh. The operative extremity was then prepped using Betadine paint and scrub and draped in the usual fashion. The extremity was then elevated and exsanguinated before the tourniquet was inflated to 325 mmHg. After inflation, the following procedure was then performed. Attention was directed to the posterior aspect of the right heel overlying the Achilles tendon. A 6 cm incision was made midline over the Achilles tendon. Dissection was carried down through subcutaneous the superficial fascia to the level of the peritenon which was incised and reflected medially and laterally to expose the Achilles tendon. Dissection was carried down distally to the level of the calcaneal fracture. This was incised to expose the fracture. There was noted to be significant amount of hematoma formation within the fracture. Using a combination of rongeur and curette the hematoma was removed from the fracture site. After removal of the hematoma, [id number] reduction clamp was used to reduce the fracture fragment to the appropriate anatomic position. This was confirmed on C-arm imaging as well as clinically. Next, 2 guidewires for the 4.0 cannulated screws were inserted through the midline of the Achilles tendon into the fracture fragment of the calcaneus. These were driven bicortical. Good positioning of the guidewires was visualized clinically as well as on C-arm imaging. Next, 15 blade was used to make a small stab incision to the midline portion of the Achilles tendon. Countersink and drill was used over the wires in preparation for the 4.0 cannulated screws. Next, a 4.0 headless compression screw was inserted across fracture site followed by a 4.0 headed short thread screw with washer. Good position of the screws was noted clinically as well as on C-arm imaging. Good anatomic reduction of the fracture was visualized. Next, attention was directed to the distalmost portion of the calcaneus, stable fragment. The site was drilled in preparation for sonic anchors. Next, sonic anchor x 2 from [facility] was inserted into the drill holes. The sutures were then inserted through the Achilles tendon in crossing fashion before being and tied with the ankle in plantarflexion. The site was further augmented with 2-0 Vicryl. Next, the incision site was irrigated with copious amounts of sterile saline. Attention was then directed to closure. Deep tissue was closed including the peritenon using 2-0 Vicryl followed by subcuticular closure with 3-0 Vicryl and skin closure with 3-0 nylon in a combination of horizontal mattress and simple interrupted sutures. The tourniquet was let down good hyperemic response was noted to distal aspect of right foot. Incision site was then dressed with Xeroform, 4 x 4 gauze, Kerlix. Dorsal wound of right foot which was Sterile during the duration of the procedure was then dressed with Xeroform, dry sterile dressing. A well-padded below the knee posterior splint was applied to the right lower extremity in equinus. The patient tolerated the procedure and anesthesia well and without complication. The patient was transported from the operating room to the recovery room with vital signs stable and vascular status intact to right foot. The patient was given both written and verbal instructions to remain nonweightbearing to the operative extremity, to keep dressings/splint clean, dry and intact and to take pain medication as directed. The patient will follow-up in the outpatient setting at their scheduled appointment. The patient was discharged with my personal number and was instructed to call if any questions or issues should arise. They were discharged home once anesthesia criteria was met.
[2023-09-26] MEDS: HYDROcodone-acetaminophen 10-325 mg Tablet 1 TAB PO (12:53)
--- NOTE | 2023-09-26 16:23 | ANE.PACU2 ---
Inpatient post-anesthesia follow up: Airway intact: Yes Vital signs: Temperature 97.5 F Pulse Rate 78 Respiratory Rate 18 Blood Pressure 104/53 Pulse Oximetry 94 Oxygen Delivery Me thod Room Air Oxygen Flow Rate 6 Fraction of Inspir ed Oxygen Hydration adequate: Yes Nausea and vomiting: No Pain level: 1 Mental status: Baseline
== END 2023-09-26 13:40 | disposition home or self-care (01) ==
PROVIDERS: PCP Family Medicine; Visit Provider Podiatrist Foot & Ankle Surgery
PROC: (CPT 28415; principal; 2023-09-26 09:25)
DX: S92.001A Unspecified fracture of right calcaneus, initial encounter for closed fracture (principal); X58.XXXA Exposure to other specified factors, initial encounter; E66.01 Morbid (severe) obesity due to excess calories; Z68.33 Body mass index [BMI] 33.0-33.9, adult; F41.9 Anxiety disorder, unspecified; F32.A Depression, unspecified; E11.40 Type 2 diabetes mellitus with diabetic neuropathy, unspecified; Z86.16 Personal history of COVID-19; I10 Essential (primary) hypertension; E03.9 Hypothyroidism, unspecified; Z98.1 Arthrodesis status
CPT/HCPCS: 28415; 73600; 76000; C1713; J0131; J1100; J1170; J2371; J2405; J2704; J2710; J2795; J3010; J3370; J3490; J7030; J7050

== ENCOUNTER → 2023-10-02 10:46 | Outpatient (BNVA) | payer MEDICARE, MEDICAID, SELFPAY ==
[2021-11-10 17:20] VITALS: BP 139/99; BMI 28.1
== END ==
PROVIDERS: PCP Family Medicine; Visit Provider Podiatrist Foot & Ankle Surgery
DX: S92.001D Unspecified fracture of right calcaneus, subsequent encounter for fracture with routine healing; X58.XXXD Exposure to other specified factors, subsequent encounter; Z46.89 Encounter for fitting and adjustment of other specified devices; S92.901D Unspecified fracture of right foot, subsequent encounter for fracture with routine healing
CPT/HCPCS: 73630; 97760; 99024; L4361

== ENCOUNTER 2023-10-02 14:12 | Outpatient (CLI) | payer MEDICARE, MEDICAID, SELFPAY ==
[2021-11-10 17:20] VITALS: BP 139/99; BMI 28.1
== END 2023-10-02 14:13 | disposition home or self-care (01) ==
LOC: SPT 14:12
PROVIDERS: PCP Family Medicine; Visit Provider Podiatrist Foot & Ankle Surgery
DX: Z46.89 Encounter for fitting and adjustment of other specified devices (principal); S92.901D Unspecified fracture of right foot, subsequent encounter for fracture with routine healing; X58.XXXD Exposure to other specified factors, subsequent encounter
CPT/HCPCS: 97760; 99024; L4361

== ENCOUNTER → 2023-10-11 13:28 | Outpatient (BNVA) | payer MEDICARE, MEDICAID, SELFPAY ==
[2021-11-10 17:20] VITALS: BP 139/99; BMI 28.1
== END ==
PROVIDERS: Visit Provider Podiatrist Foot & Ankle Surgery
DX: Z98.890 Other specified postprocedural states (principal); S92.001A Unspecified fracture of right calcaneus, initial encounter for closed fracture; X58.XXXA Exposure to other specified factors, initial encounter
CPT/HCPCS: 99214

== ENCOUNTER 2023-10-17 06:37 | Day surgery (SDC) | payer MEDICARE, MEDICAID, SELFPAY ==
[2021-11-10 17:20] VITALS: BP 139/99; BMI 28.1
[2023-10-17] VITALS (10 sets, daily range): BP systolic 112–130; BP diastolic 70–90; PULSE 76–107; RESP 12–29; TEMP 36.3–36.9; O2SAT 93–98; BMI 33.4
[2023-10-17] MEDS: gabapentin 300 mg Capsule PO (07:16)
[2023-10-17] MEDS: sodium chloride 0.9% 1,000 ML 30 ML IV (07:17)
[2023-10-17] MEDS: acetaminophen 1,000 MG/100 ML PIGGYBACK 400 MG IV (07:18)
--- NOTE | 2023-10-17 07:49 | P.HPUD_ITS ---
Surgery/Procedure H&P Update DATE OF PROCEDURE: October 17, 2023 DATE H&P PERFORMED: 10/11/23 H&P UPDATE INFORMATION: I have reviewed H&P completed within last 30 days, I have examined patient prior to procedure, No changes to prior documentation and H&P is in [facility] EMR on date indicated PREOP DIAGNOSIS: Right calcaneal fracture PLANNED PROCEDURE: Operation Date: 10/17/23 08:25 Proposed Procedures p Hardware Removal right calcaneus(Right) - Emiliano Gonzales DPM s Revisional Right Achilles Tendon Repair(Right) - Emiliano Gonzales DPM s Excision Partial Bone Calcaneus Foot(Right) - Emiliano Gonzales DPM
[2023-10-17] MEDS: vancomycin 1,000 MG in sodium chloride 0.9% 250 ML 250 MG IV (08:07)
--- NOTE | 2023-10-17 09:36 | P.BOP_ITS ---
Date of procedure: 10/17/2023 Surgeon name: Paxton HuntPJoel Casting And Pasting Supervisor(s) name(s): Lee Procedure(s) performed: Removal hardware right calcaneus, excision fracture fragment right calcaneus, secondary repair Achilles tendon Description of findings: Avulsion fracture right calcaneus with degenerative changes of Achilles tendon at insertion and failed orthopedic hardware Estimated blood loss: 10 cc Tourniquet time: 50 minutes Specimen(s) removed: Bone right calcaneus Post-operative diagnosis: Failed orthopedic hardware, calcaneal fracture,
--- NOTE | 2023-10-17 09:37 | P.OP_ITS ---
Operative Report Date of procedure: October 17, 2023 Pre-op diagnosis: Right calcaneal fracture Post-op diagnosis: Same Post-op findings: Avulsion fracture right calcaneus Procedure done: 1. Hardware removal right calcaneus CPT 30125 2. Revisional Secondary repair right Achilles tendon CPT 76406 3. Excision of partial calcaneus CPT 10685 Implants: Achilles speed bridge [employer] Specimens removed/disposition: Partial bone excision right clacaneus Surgeon: Emiliano Gonzales DPM Estimated blood loss: 10cc 50 minutes Complications: None Procedure: Patient is a 57-year-old female that has a history of right calcaneal fracture. Patient underwent open reduction internal fixation right calcaneal fracture. However, in the postoperative period she was weightbearing against a postoperative protocol. This resulted in refracture of right calcaneus and failure of orthopedic hardware. The extent of the injury necessitates hardware removal, excision of fracture fragment and repair of Achilles tendon. A lengthy discussion regarding the procedure, including risks and complications has been had with the patient and is noted in the recent clinic note. Written and verbal consent have been obtained. All patient questions have been answered to the patient?s satisfaction. No written or verbal guarantees have been given or implied. The patient has been NPO since midnight. The history has been reviewed and the history and physical is current. The signed consent was confirmed and placed in the patient chart. Patient imaging has been reviewed and is consistent with the diagnosis. Under mild sedation, the patient was brought into the operating room and placed on the table in the prone position. A popliteal block was performed by the anesthesia department. IV antibiotics were given by the anesthesia team as preoperative surgical prophylaxis. General sedation was then performed by the anesthesiateam. A pneumatic tourniquet was then placed about the right thigh. The operative extremity was then prepped and draped in the usual fashion. The extremity was then elevated and exsanguinated before the tourniquet was inflated to 325 mmHg. After inflation, the following procedure was then performed. Attention was directed to the posterior aspect of the right heel where a 10 cm incision was made midline. Dissection was carried down through subcutaneous and superficial fascia to the level of the peritenon which was incised to expose the Achilles tendon. Dissection was carried out to expose the attachment site of the Achilles tendon and the fracture fragment. The Achilles tendon was then incised midline using a #15 blade and opened and began fashion to expose the entirety of the calcaneal fracture fragment. This was then sharply excised using a #15 blade and passed from the operative field. The orthopedic hardware was then clearly visualized and was removed from the calcaneus and passed from the operative field. The site was then irrigated with copious amounts of sterile saline. No further fracture fragment was visualized. An Achilles speed bridge from [employer] was then employed per the manufacture protocol to attach the distal Achilles tendon to the remaining calcaneus. Suture anchors were established in the calcaneus and the 2 proximal holes before being threaded through the Achilles tendon per the manufacture protocol and anchored distally using interference screws. This was performed with the ankle and a neutral to slightly plantarflexed position. The Achilles tendon midline incision was then repaired using #2 Fiber[employer]. Site was then irrigated with copious nonsterile saline before attention was directed to closure. Deep tissue was closed with 2- 0 Vicryl followed by subcuticular closure with 3-0 Vicryl and skin closure with 3-0 nylon in horizontal mattress fashion. The tourniquet was let down and good hyperemic response was noted to all digits of the right foot. The incision site was dressed with Xeroform, 4 x 4 gauze, Kerlix before the right lower extremity was placed in a well-padded below the knee posterior splint. The patient tolerated the procedure and anesthesia well and without complication. The patient was transported from the operating room to the recovery room with vital signs stable and vascular status intact to all digits of the right nonweightbearing foot. The patient was given both written and verbal instructions to remain nonweightbearing to the operative extremity, to keep dressings/splint clean, dry and intact and to take pain medication as directed. The patient will follow-up in the outpatient setting at their scheduled appointment. The patient was discharged with my personal number and was instructed to call if any questions or issues should arise. They were discharged home once anesthesia criteria was met.
--- NOTE | 2023-10-17 10:22 | P.ANESASSM_ITS ---
Pre-Anesthetic Assessment Height/Weight: Height 1.73 m Weight 99.79 kg Temp Pulse Resp BP Pulse Ox O2 Del Method O2 Flow Rate 97.5 F L 76 18 112/85 94 Nasal Cannula 2 10/17/23 10:10 10/17/23 10:10 10/17/23 10:10 10/17/23 10:10 10/17/23 10:10 10/17/23 10:10 10/17/23 10:10 Preop Diagnosis: Right calcaneal fracture Operation Date: 10/17/23 08:25 Proposed Procedures p Hardware Removal right calcaneus(Right) - Emiliano Gonzales DPM s Revisional Right Achilles Tendon Repair(Right) - CARMEL Cha Excision Partial Bone Calcaneus Foot(Right) - Emiliano Gonzales DPM Familial anesthetic complications: none Was Beta Nicola taken within 24 hours: N/A Was Clonidine taken within 24 hours: N/A Last intake: Intake Last Liquid Date 10/16/23 Last Liquid Time 23:30 Last Solid Date 10/16/23 Last Solid Time 23:30 Social No alcohol and No tobacco Exam alert, oriented x 3, clear to auscultation bilaterally and regular rate & rhythm Airway Submandibular: within normal limits Cervical ROM: within normal limits Mallampati: Class II Dentition: false Pulmonary Asthma CV/HEM Hypertension Metabolic Morbid Obesity and Thyroid Disease Neuropsych Anxiety, Depression and Neuropathy Anesthetic Plan ASA status: 3 Anesthesia: General and Regional (specify below) (right pop blk) Medications/Allergies Home Medications Medication Instructions Recorded Confirmed Last Taken Type diabetic shoes with bilateral toe #1 ayaka 12/09/21 10/11/23 Unknown Rx fillers walker 03/01/22 10/11/23 Unknown History losartan 25 mg tablet 25 mg PO DAILY 07/13/22 10/17/23 10/15/23 History potassium chloride 10 mEq 10 meq PO BID #60 caps 07/13/22 10/17/23 10/16/23 Rx capsule,extended release Supinator to the left #1 ea 11/08/22 10/11/23 Unknown Rx albuterol sulfate 90 mcg/actuation 2 puff inhalation Q6H PRN 01/30/23 10/17/23 10/14/23 Rx aerosol inhaler (Ventolin HFA) shortness of breath or wheezing #8.5 grams Custom Molded Orthotics #1 ea 03/07/23 10/11/23 Unknown Rx amitriptyline 100 mg tablet 200 mg (2 x 100 mg) PO BEDTIME #60 07/26/23 10/17/23 10/16/23 Rx tabs duloxetine 60 mg capsule,delayed 120 mg (2 x 60 mg) PO DAILY #60 07/26/23 10/17/23 10/16/23 Rx release caps prazosin 5 mg capsule 5 mg PO .HS #30 caps 07/26/23 10/17/23 10/16/23 Rx clonazepam 0.5 mg tablet (Klonopin) 0.5 mg PO BID #60 tabs 08/31/23 10/17/23 10/16/23 Rx levothyroxine 75 mcg tablet 75 mcg PO DAILY 09/25/23 10/17/23 10/16/23 History oxybutynin chloride 5 mg tablet 15 mg PO BID 09/25/23 10/17/23 10/16/23 History CAM boot #1 ea 10/02/23 10/11/23 Unknown Rx sulfamethoxazole 800 1 tab PO BID 7 days #14 tabs 10/09/23 10/17/23 10/16/23 Rx mg-trimethoprim 160 mg tablet (Bactrim DS) hydrocodone 5 mg-acetaminophen 325 1 tab PO Q6H PRN pain 5 days #20 10/11/23 10/17/23 10/16/23 Rx mg tablet tabs Wheelchair with adjustable legs #1 ea 10/12/23 Unknown Rx gabapentin 600 mg tablet 1,200 mg PO BID 10/16/23 10/17/23 10/16/23 History hydrocodone 10 mg-acetaminophen 1 tab PO Q6H PRN pain #28 tabs 10/17/23 Unknown Rx 325 mg tablet Allergies Allergy/AdvReac Type Severity Reaction Status Date / Time amoxicillin Allergy ALGY-Rash Verified 10/17/23 07:08 egg Allergy ADR-Vomitin Verified 10/17/23 07:08 g Penicillins Allergy ALGY-Rash Verified 10/16/23 14:51 promethazine Allergy Unknown Verified 10/17/23 07:08 simvastatin [From Zocor] Allergy ADR-Itching Verified 10/17/23 07:08 morphine AdvReac ADR-Agitate Verified 10/16/23 14:51 d nalbuphine [From Nubain] AdvReac ADR-Agitate Verified 10/16/23 14:51 d Current Medications Generic Name Dose Route Start Last Admin Trade Name Twanq PRN Reason Stop Dose Admin Sodium Chloride 1,000 mls @ 30 mls/hr 10/17/23 07:00 10/17/23 10:13 Sodium Chloride 0.9% IV 10/18/23 06:59 Infused .Q24H BIA Infusion PFSH Anesthesia Medical History Post-traumatic stress disorder, unspecified Psychiatric care Fungal pneumonia Microcytic anemia Methadone dependence Respiratory failure COVID-19 Benign essential HTN Other urethral stricture, female Neuropathy Cataract Hypothyroidism Incontinence in female Hx of chest pain Hx of shortness of breath Generalized anxiety disorder Major depressive disorder, recurrent severe without psychotic features Post-traumatic stress disorder, chronic Surgical History H/O: hysterectomy H/O gastric bypass Hx of appendectomy History of cholecystectomy History of amputation of great toe of both feet History of reconstructive repair of rectocele History of total right hip replacement History of esophagogastroduodenoscopy (EGD) Family History Father , AT AGE 62 Cancer PROSTATE CANCER Grandmother Stroke Denies family history of Anesthesia complication Bleeding disorder Social History Smoking and tobacco/nicotine status: never used tobacco/nicotine Second hand smoke exposure: No Alcohol intake: former Year of sobriety/quit date alcohol: 2020 Substance/Drug Use: never Adopted: Yes (Grandparents adopted her.) Caregiver/support person: No Lives independently: Yes Household members: none Housing: Apartment Marital status: / Marital status details: for 21 years Number of children: 2 Number of grandchildren: 4 Highest education level completed: Associate Degree: Occupational, Technical, Vocational Program 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 School service: No Current occupational status: disabled Current occupational exposures/hazards: No Pets and animals: Yes (2) Pets & animals: cat(s) Leisure activites: reading and other Leisure activities details: Watch TV Sexually active: No Do you think of yourself as: Straight/Heterosexual Current gender identity: Female [employer]ta/Synagogue: [employer] Special ekta needs: No Agree to transfusion: Yes Female Reproductive History Para: 2 Spontaneous abortions: No Data Anesthesia Cardiac Studies: Echocardiogram 05/15/21 Sestamibi Stress Test (Cardiology) 07/15 Anesthesia Procedures Nerve Block Nerve Block 1: Main Anesthesia: general anesthesia Time Out Performed: Yes Consent: requested by attending/covering physician, from patient, risks and benefits reviewed and patient agrees to proceed Nerve block location: popliteal (right) Anesthesia monitors applied: pulse oximetry, EKG, BP cuff and oxygen Nerve block position: other (prone) Anesthetic Used: ropivicaine 0.5% Amount of anesthesia used (mL): 30 Ultrasound used to: recognize landmarks Nerve Stimulator Used?: No Interscalene/Femoral BLK: 4 stimuplex 21 g needle used for position and inplane approach Injection: neg aspiration of heme Patient Tolerated Procedure: well Complications: none
--- NOTE | 2023-10-17 14:17 | ANE.PACU2 ---
Inpatient post-anesthesia follow up: Airway intact: Yes Vital signs: Temperature 97.5 F Pulse Rate 76 Respiratory Rate 18 Blood Pressure 125/79 Pulse Oximetry 94 Oxygen Delivery Me thod Room Air Oxygen Flow Rate 2 Fraction of Inspir ed Oxygen Hydration adequate: Yes Nausea and vomiting: No Pain level: 1 Mental status: Baseline
== END 2023-10-17 11:50 | disposition home or self-care (01) ==
PROVIDERS: Visit Provider Podiatrist Foot & Ankle Surgery
PROC: (CPT 20680; principal; 2023-10-17 08:15)
PROC: (CPT 27650; 2023-10-17 08:15)
PROC: (CPT 20680; 2023-10-17 08:15)
DX: S92.001A Unspecified fracture of right calcaneus, initial encounter for closed fracture (principal); X58.XXXA Exposure to other specified factors, initial encounter; J45.909 Unspecified asthma, uncomplicated; I10 Essential (primary) hypertension; E66.01 Morbid (severe) obesity due to excess calories; Z68.33 Body mass index [BMI] 33.0-33.9, adult; Z86.16 Personal history of COVID-19; E03.9 Hypothyroidism, unspecified
CPT/HCPCS: 20680; 27654; 28120; C1713; J0131; J1100; J2405; J2704; J2795; J3010; J3370; J3490; J7030; J7050

== ENCOUNTER → 2023-10-31 13:11 | Outpatient (BNVA) | payer MEDICARE, MEDICAID, SELFPAY ==
[2021-11-10 17:20] VITALS: BP 139/99; BMI 28.1
== END ==
PROVIDERS: PCP Family Medicine; Visit Provider Podiatrist Foot & Ankle Surgery
DX: Z98.890 Other specified postprocedural states; S92.001D Unspecified fracture of right calcaneus, subsequent encounter for fracture with routine healing; X58.XXXD Exposure to other specified factors, subsequent encounter
CPT/HCPCS: 99024

== ENCOUNTER → 2023-11-20 14:29 | Outpatient (BNVA) | payer MEDICARE, MEDICAID, SELFPAY ==
[2021-11-10 17:20] VITALS: BP 139/99; BMI 28.1
== END ==
PROVIDERS: PCP Family Medicine; Visit Provider Orthopaedic Surgery
DX: M25.562 Pain in left knee
CPT/HCPCS: 73562; 73590; 99204

== ENCOUNTER → 2023-11-27 10:24 | Outpatient (BNVA) | payer MEDICARE, MEDICAID, SELFPAY ==
[2021-11-10 17:20] VITALS: BP 139/99; BMI 28.1
== END ==
PROVIDERS: PCP Family Medicine; Visit Provider Podiatrist Foot & Ankle Surgery
DX: Z98.890 Other specified postprocedural states; S92.002A Unspecified fracture of left calcaneus, initial encounter for closed fracture; X58.XXXA Exposure to other specified factors, initial encounter
CPT/HCPCS: 99024

== ENCOUNTER 2023-12-27 15:15 | Outpatient (CLI) | payer MEDICARE, OTHER, SELFPAY ==
[2021-11-10 17:20] VITALS: BP 139/99; BMI 28.1
--- NOTE | 2023-12-27 16:00 | MR_ITS ---
WS: [id number] MRI LEFT KNEE HISTORY: Fall 2 years ago. Prior fracture. Reinjury August 2023. COMPARISON: LEFT knee radiograph 11/20/2023 Anterior cruciate ligament: Abnormal ACL. The ACL is not identified in its entirety. There has been a n avulsion at the base of the tibial spine where the ACL attaches. Prior avulsion fracture noted on k nee radiographs. Bony fragments are noted along the distal ACL. Mixed signal in the posterior joint s pace causing posterior displacement of the PCL is probably a combination of osteophyte in the ACL tea r. Posterior cruciate ligament: Intact. The PCL is being displaced by avulsed bony fragments from the ti bial spine. Medial collateral ligament: Intact. Posterior lateral corner structures: Intact. Medial menisci: Complex tear of the posterior horn. There is abnormal signal throughout. Blunting of the normal free edge. Complex tear in the posterior horn involving the peripheral third of the menisc us and the meniscal root. Lateral meniscus: Abnormal posterior horn. There is loss of the normal contour of the posterior infer ior meniscus toward the meniscal root. Meniscocapsular separation and fluid is noted. Small amount of fluid extends along the popliteus tendon. Extensor mechanism: Distal quadriceps tendon and patellar tendons are intact. Fluid and soft tissue: Small suprapatellar effusion. No Waterman's cyst. Osseous and articular structures: Patellofemoral compartment: Normal. Medial compartment: Mild narrowing of the medial compartment. Marginal osteophytes along the joint li ne. Cortical irregularity involving the tibial plateau adjacent to the MCL. There is loss of the norm al contour of the tibial plateau and this may be related to a prior healed fracture. There is overlyi ng chondromalacia. Lateral compartment: Mild narrowing of the lateral compartment with mild chondromalacia. There is a very small amount of marrow edema extending in an oblique manner through the posterior tib ial plateau. This may represent a partially healed fracture. IMPRESSION: 1. Anterior cruciate ligament avulsion fracture. There is a fracture of the base of the tibial spine where the ACL attaches. 2. PCL is being displaced posteriorly by intermediate soft tissue. This soft tissue is probably a co mbination of avulsed fracture and the torn ACL. 3. Complex tear posterior horn medial meniscus. Tear involves the free edge in the peripheral third of the meniscus and meniscal root. 4. Abnormal posterior horn of the lateral meniscus. Meniscocapsular separation along the posterior i nferior meniscus with a small amount of adjacent fluid extending along the popliteus tendon sheath. 5. Mild narrowing the medial compartment. 6. Cortical irregularity involving the medial tibial plateau close to the MCL. Due to the cortical i rregularity and edema this may be an healing fracture. 7. Oblique marrow edema through the posterior tibial plateau highly suspicious for healing fracture also.
== END 2023-12-27 15:16 | disposition home or self-care (01) ==
LOC: RAD 15:15
PROVIDERS: PCP Family Medicine; Visit Provider Orthopaedic Surgery
DX: S92.002A Unspecified fracture of left calcaneus, initial encounter for closed fracture (principal); S83.242A Other tear of medial meniscus, current injury, left knee, initial encounter; W19.XXXA Unspecified fall, initial encounter
CPT/HCPCS: 73721

== ENCOUNTER → 2024-01-22 13:07 | Outpatient (BNVA) | payer MEDICARE, MEDICAID, SELFPAY ==
[2021-11-10 17:20] VITALS: BP 139/99; BMI 28.1
== END ==
PROVIDERS: PCP Family Medicine; Visit Provider Orthopaedic Surgery
DX: M25.562 Pain in left knee (principal)
CPT/HCPCS: 73562; 99214